=== PATIENT | female | born 1970 | race Caucasian/White ===

== ENCOUNTER 2020-10-05 09:18 | Outpatient (REF) | payer MEDICAID, SELFPAY | END 2020-10-05 09:19 | disposition home or self-care (01) | LOC: HO.LAB 09:18 | PROVIDERS: PCP Internal Medicine; Visit Provider Internal Medicine | DX: Z20.828 Contact with and (suspected) exposure to other viral communicable diseases (principal) | CPT/HCPCS: C9803; U0003 ==

== ENCOUNTER 2020-10-06 03:58 | Observation (INO) | payer MEDICAID, SELFPAY ==
[2020-10-06] VITALS (22 sets, daily range): BP systolic 95–156; BP diastolic 57–85; PULSE 71–94; RESP 16–20; TEMP 36.5–36.8; O2SAT 92–100; BMI 37.0
--- NOTE | 2020-10-06 04:00 | ECG_ITS ---
Test Reason : ?STROKE Blood Pressure : / mmHG Vent. Rate : 075 BPM Atrial Rate : 075 BPM P-R Int : 134 ms QRS Dur : 084 ms QT Int : 420 ms P-R-T Axes : 038 069 029 degrees QTc Int : 469 ms Normal sinus rhythm Normal ECG Compared to EKG of 16 Mar 2020 at 12:25:30 No significant changes seen Referred By: Zane Cuevas Electronically Signed By:RIVAS GARCIA
--- NOTE | 2020-10-06 04:00 | CT_ITS ---
EXAMINATION: CT HEAD WITHOUT CONTRAST (STROKE PROTOCOL) CLINICAL INFORMATION: Stroke protocol. Left arm weakness. COMPARISON: None TECHNIQUE: Contiguous axial imaging was performed from the skull base to vertex without intravenous administration of contrast. This CT examination was performed using dose optimization techniques as appropriate, variously including the following: *Automated exposure control *Adjustment of mA and/or kV according to patient size (this includes techniques or standardized protocols for targeted exams where dose is matched to indication/reason for exam; i.e. extremities or head) *Use of iterative reconstruction technique DLP: 726 mGy-cm FINDINGS: There is no intracranial hemorrhage, hematoma, or extra-axial fluid collection. The ventricles are normal in size. There is no hydrocephalus, edema, or mass effect. The quiros-white matter differentiation appears symmetric. There is no acute infarct or mass lesion. The calvarium appears intact. There is no pneumocephalus or orbital emphysema. The visualized sinuses and middle ears and mastoid air cells show no significant mucosal thickening. There are no air-fluid levels. CT/CT head for stroke IMPRESSION: No acute intracranial pathology. This critical result was discussed with Zane Cuevas MD at 0409 hours on 09/26/2020. It was ascertained that the content and urgency of the report was understood at the time of direct communication.
--- NOTE | 2020-10-06 04:03 | CT_ITS ---
EXAMINATION: CTA NECK WITH CONTRAST (STROKE) CTA BRAIN WITH CONTRAST (STROKE) CLINICAL INFORMATION: Suspect acute stroke. Assess for major vessel occlusion. Please call report. COMPARISON: CT abdomen performed earlier same date TECHNIQUE: CTA of the head and neck was performed in the axial plane from the mediastinum to the skull vertex using 70 mL Omnipaque 350 intravenous contrast. Additional reformatted multiplanar images including maximum intensity projection MIP images are generated on the CT workstation. This CT examination was performed using dose optimization techniques as appropriate, variously including the following: *Automated exposure control *Adjustment of mA and/or kV according to patient size (this includes techniques or standardized protocols for targeted exams where dose is matched to indication/reason for exam; i.e. extremities or head) *Use of iterative reconstruction technique DLP: 1449 mGy-cm FINDINGS: The degree of stenosis determined by criteria similar to NASCET. SOFT TISSUES AND LUNG APICES: No overt abnormality is appreciated. CTA NECK: The aortic arch has a classic configuration and the major arch vessel origins are non-stenotic. The vertebral arteries are co-dominant and both vertebral origins are widely patent. Both common, internal and external carotid arteries are normal in course and caliber. CTA HEAD: There is normal opacification of the major intracranial vessels. No acute proximal large vessel occlusion, focal flow-limiting stenosis, or saccular intracranial aneurysm is identified. No abnormal parenchymal enhancement or regional oligemia is visualized. HEAD (delayed): No intracranial mass, intercerebral edema, hemorrhage, or midline shift is evident. The ventricles and sulci are stable in size and configuration. No extra-axial collections are appreciated. No pathologic intracranial enhancement. The paranasal sinuses are well-aerated and clear. CT/CT angio head neck stroke IMPRESSION: No evidence of large vessel occlusion or hemodynamically significant stenosis within the intracranial or extracranial arterial vasculature. This critical result was discussed with Zane Cuevas MD at 0439 hours on 10/06/2020 and it was ascertained that the content and urgency of the report was understood at the time of direct communication.
[2020-10-06] MEDS: iohexoL 350 MG/ML 100 ML INFUS..BTL 70 ML IV (04:31)
[2020-10-06 04:51] LABS: MANUAL DIFF FLAG NO
[2020-10-06 04:54] LABS: Basophils Percent Auto 0.5 % (0-2); Eosinophils Absolute Auto 0.2 X10*3/uL (0.0-0.4); Eosinophils Percent Auto 2.4 % (0-4); Hematocrit 35.9 % (37-47); Hemoglobin 12.9 g/dl (12.0-16.0); Imm Gran Abs Auto 0.02 X10*3/uL (0.00-0.03); Imm Gran Pct Auto 0.3 % (0.0-0.4); Lymphocytes Absolute Auto 2.3 X10*3/uL (1.2-4.9); Lymphocytes Percent Auto 34.7 % (20-40); Mean Corpuscular HGB Conc 35.9 g/dl (31.0-35.0); Mean Corpuscular Hemoglobin 31.6 pg (27.0-33.0); Mean Platelet Volume 10.8 fL (9.4-12.3); Monocytes Absolute Auto 0.4 X10*3/uL (0.1-1.2); Monocytes Percent Auto 6.4 % (2-11); Neutrophils Absolute Auto 3.7 X10*3/uL (2.0-8.3); Neutrophils Percent Auto 55.7 % (45-73); Platelet Count 291 X10*3/uL (160-400); Red Blood Count 4.08 X10*6/uL (4.20-5.50); Red Cell Distribution Width 12.4 % (11.0-16.0); White Blood Count 6.6 X10*3/uL (4.8-10.8)
[2020-10-06 05:09] LABS: Prothrombin Time 11.5 SEC (10.8-13.0)
[2020-10-06 05:12] LABS: Partial Thromboplastin Time 36.4 SEC (24.1-38.0)
[2020-10-06 05:14] LABS: Glucose Urine UA >=1000 MG/DL (NEG); Leukocyte Esterase Urine NEG (NEG); Nitrite Urine NEG (NEG); Specific Gravity - Urine <= 1.005 (1.005-1.025); Urine Blood NEG (NEG); Urine Ketones NEG (NEG); Urine Protein NEG (NEG-TRACE)
[2020-10-06 05:26] LABS: Appearance Urine CLEAR; Color Urine STRAW
[2020-10-06 05:29] LABS: Ethanol < 10 mg/dL
[2020-10-06 05:35] LABS: Mucus Urine TRACE /LPF; RBC Urine 0 /HPF (0); Squamous Epithelial Cell Urine TRACE /LPF; WBC Clumps Urine NOTED; WBC Urine 0-2 /HPF (0-4)
[2020-10-06 05:36] LABS: Troponin-I High Sensitivity < 3.5 ng/L (<3.5-17.0)
[2020-10-06 05:37] LABS: Anion Gap 15 (12-20); Blood Urea Nitrogen 11 mg/dL (9-16); Calcium 8.3 mg/dL (8.4-10.2); Carbon Dioxide 22 mmol/L (22-29); Chloride 103 mmol/L (96-108); Creatinine Clr Calc Pharmacy 98.1; Estimated Glomerular Filt Rate > 60; Glucose Random 352 mg/dL (60-115); Potassium 3.9 mmol/l (3.3-5.1); Sodium 136 mmol/L (135-145)
[2020-10-06 05:40] LABS: Stroke Lab Use COMPLETE
[2020-10-06] MEDS: Morphine Sulfate 2 MG/ML CARTRIDGE IVPUSH (05:41)
[2020-10-06] MEDS: ondansetron HCL 4 MG/2 ML VIAL IVPUSH (05:41)
[2020-10-06] MEDS: 0.9 % Sodium Chloride 500 ML 1000 ML IV (05:42)
[2020-10-06] MEDS: Aspirin 81 MG TAB.CHEW 162 MG PO (05:42)
--- NOTE | 2020-10-06 06:10 | ED_ITS ---
HPI - Neuro Symptoms/Deficit General Chief Complaint: Stroke Stated Complaint: left arm numbness Time Seen by Provider: 10/06/20 04:00 Source: patient and other (Patient's Bradford lynch) Mode of arrival: ambulatory Limitations: no limitations History of Present Illness HPI Narrative: 50-year-old female who presents to the emergency department for evaluation headache, left arm and left leg weakness. The patient is Portuguese- speaking only and they did use an instructor military science to get the information from her. The patient's speech is comprehensible but slow and she has a very low volume to her voice. The patient states that over the last 2 days her blood sugars have been high ranging from 350-400. The patient went to bed at around 10:00 p.m. last night not feeling well. Her fiancee states that she may have woken up at around 11:30 p.m. and had some difficulty walking and did not feel well. The patient woke up at 4:00 a.m. secondary to feeling short of breath and having difficulty walking. An ambulance was called and the patient was found to have left arm and left leg weakness. The patient complained of a severe headache here in the emergency department. She stated that the headache was located throughout her entire head and was a throbbing sensation. She had associated nausea. She stated that her left arm and left leg felt very heavy and she could not move them. The patient believes that before she went to bed she was able to move her arms and legs without any difficulty. The patient's point of care glucose by the paramedics was in the 300 range. The patient denied fever, chills, chest pain or shortness of breath here in the emergency department. Related Data Previous Rx's Medication Instructions Recorded linaclotide 145 mcg capsule 145 mcg PO QAM 30 Days #30 cap 08/09/20 Allergies Allergy/AdvReac Type Severity Reaction Status Date / Time ENVIRONMENTAL Allergy Unknown HAYFEVER Uncoded 10/06/20 05:01 Pt states no food/medication Allergy Unknown Unknown Uncoded 10/06/20 05:01 a Review of Systems Review of Systems: Yes all other systems are reviewed and are negative Constitutional: Constitutional: Reports as per HPI Eyes: Eyes: Reports as per HPI ENT: Reports as per HPI Cardiovascular: Cardiovascular: Reports as per HPI Respiratory: Respiratory: Reports as per HPI Gastrointestinal: Gastrointestinal: Reports as per HPI Genitourinary: Genitourinary: Reports as per HPI Musculoskeletal: Musculoskeletal: Reports as per HPI Integumentary/Breasts: Skin/Breast: Reports as per HPI Neurologic: Reports as per HPI Psychiatric: Psychiatric: Reports as per HPI Allergic/Immunologic: Allergic/Immunologic: Reports as per HPI [facility] Past Medical History Attestation statement: The following information was validated with the patient. [facility] Narrative: The patient lives with her fiance. She denies tobacco and alcohol use. Social History Social History Advance Directives: No Physical Exam Vital Signs: Vital Signs: Last Vital Signs Temp 97.7 F 10/06/20 04:57 Pulse 76 10/06/20 06:00 Resp 16 10/06/20 06:00 BP 123/71 10/06/20 06:00 Pulse Ox 97 10/06/20 06:00 Body Mass Index 37.0 Const: General: cooperative, no acute distress, alert and awake Orientation/consciousness: oriented to person and oriented to place Limitations: other limitations (The patient is speaking in a very low voice and slowly) HENMT: Head: Yes normal to inspection, Yes normocephalic and Yes atraumatic Ears: external ears normal General nose exam: Normal external nose present Face and sinus: Yes normal facial exam Mouth: Normal oral and palatal mucosa present Throat: Yes posterior oropharynx normal Eyes: General: appearance normal, both eyes and all related structures Periorbital: periorbital findings normal Eyelids: Yes eyelids normal Conjunctivae: conjunctivae normal Sclerae: sclerae normal Corneas: corneas normal Pupils: Equal, round and reactive pupils present Direct Ophthalmoscopy: normal light reflex Neck: Neck: Yes normal visual inspection and Yes supple Lymphatic: no lymphadenopathy noted Chest: Chest palpation & inspection: normal inspection of the chest and normal palpation of entire chest wall Resp: Effort & Inspection: normal respiratory effort, normal respiratory pattern, no audible wheezes and no respiratory distress Auscultation: clear to auscultation bilaterally, no crackles, no rales, no rhonchi and no wheezes Cardio: Rate: regular rate Rhythm: regular rhythm Heart sounds: S1 normal heart sound present, S2 normal heart sound present and no murmurs GI: Inspection: No distended Palpation (GI): Soft to palpation, nontender, no guarding and No hepatosplenomegaly present Auscultation: normal bowel sounds : General: Yes no CVA tenderness Back/Spine/Pelvis: Back: no CVA tenderness Skin: General skin exam: no rashes or lesions noted Lesions: no lesions Rashes: no rashes Wounds: no wounds Neuro: General: oriented to person and oriented to place Cranial nerves: Yes CN's II-XII intact bilaterally and Yes Equal, round and reactive pupils present Cognition (Neuro): normal cognition Speech: Other speech findings present (Neuro) (Slow speech pattern, soft voice) Motor exam (neuro): Abnormal motor strength present (Unable to move left arm or left leg against gravity) Extrem: General: Yes normal to inspection, Yes no pedal edema and Yes no calf tenderness Psych: Appearance: grossly normal Mental Status: mental status grossly normal Thought process: Normal thought process present Course Course Course Narrative: 50-year-old female with a history of diabetes who presents emergency department for evaluation of headache, nausea and left arm and leg w eakness. The patient went to bed at 10:00 p.m. and was normal but woke up at 4:00 a.m. with her symptoms. On presentation to the emergency department she was only able to move her left arm and left leg minimally but not able to move them against gravity. The patient's exam was otherwise unremarkable. The patient was evaluated immediately on presentation by me in her NIH stroke scale was 6. CT scan of the head revealed no acute bleed or acute stroke. CTA of the head and neck revealed no large clots to explain her symptoms. I did discuss the patient's presentation with the covering neurologist. The patient was outside of the therapeutic window for tPA since her last well-known time was 10:00 a.m. she presented at 4:00 a.m. which was 6 hours after last well-known time. The patient did have an elevated glucose and received 1 L of normal saline IV by the paramedics and I also gave her 1 L of normal saline IV. The patient's headache was treated with morphine 2 mg IV and Zofran 4 mg IV. She also received aspirin 160 mg orally. I did discuss the patient's presentation with the covering hospitalist the patient will be admitted for further treatment. The patient required 45 minutes of critical care time provided by me in order to evaluate her for acute stroke and to determine whether not she was a thrombolytic candidate. MDM - Neuro Symptoms/Deficit Lab Data Attestation: I reviewed the patient's lab results. Result diagrams: 10/06/20 04:45 10/06/20 04:45 Labs: Lab Results 10/06/20 10/06/20 10/06/20 Range/Units 04:45 04:45 04:45 WBC 6.6 (4.8-10.8) X10*3/uL RBC 4.08 L (4.20-5.50) X10*6/uL Hgb 12.9 (12.0-16.0) g/dl Hct 35.9 L (37-47) % MCV 88.0 (80-98) fL MCH 31.6 (27.0-33.0) pg MCHC 35.9 H (31.0-35.0) g/dl RDW 12.4 (11.0-16.0) % Plt Count 291 (160-400) X10*3/uL MPV 10.8 (9.4-12.3) fL Immature Gran % (Auto) 0.3 (0.0-0.4) % Neut % (Auto) 55.7 (45-73) % Lymph % (Auto) 34.7 (20-40) % Imperial % (Auto) 6.4 (2-11) % Eos % (Auto) 2.4 (0-4) % Baso % (Auto) 0.5 (0-2) % Lymph # (Auto) 2.3 (1.2-4.9) X10*3/uL Imperial # (Auto) 0.4 (0.1-1.2) X10*3/uL Eos # (Auto) 0.2 (0.0-0.4) X10*3/uL Baso # (Auto) 0.0 (0.0-0.2) X10*3/uL Abs Immat Gran (auto) 0.02 (0.00-0.03) X10*3/uL Absolute Neuts (auto) 3.7 (2.0-8.3) X10*3/uL Absolute Nucleated RBC 0.000 (0.0-0.012) X10*3/uL Nucleated RBC % (auto) 0.0 (0.0-0.2) /100WBC PT 11.5 (10.8-13.0) SEC INR 1.0 (0.9-1.1) APTT 36.4 (24.1-38.0) SEC Sodium 136 (135-145) mmol/L Potassium 3.9 (3.3-5.1) mmol/l Chloride 103 (96-108) mmol/L Carbon Dioxide 22 (22-29) mmol/L Anion Gap 15 (12-20) BUN 11 (9-16) mg/dL Creatinine 0.78 (0.5-1.4) mg/dL Estim Creat Clear Calc 98.1 Estimated GFR > 60 Random Glucose 352 H* (60-115) mg/dL Calcium 8.3 L (8.4-10.2) mg/dL Total Creatine Kinase 35 (26-140) U/L Troponin I High Sens (<3.5-17.0) ng/L Urine Color Urine Appearance Urine pH (5.0-8.0) Ur Specific [place] (1.005-1.025) Urine Protein (NEG-TRACE) MG/DL Urine Glucose (UA) (NEG) MG/DL Urine Ketones (NEG) MG/DL Urine Blood (NEG) Urine Nitrite (NEG) Ur Leukocyte Esterase (NEG) Urine RBC (0) /HPF Urine WBC (0-4) /HPF Urine WBC Clumps Ur Squamous Epith Cells /LPF Urine Bacteria /LPF Urine Mucus /LPF Ethyl Alcohol mg/dL 10/06/20 10/06/20 10/06/20 Range/Units 04:45 04:45 05:05 WBC (4.8-10.8) X10*3/uL RBC (4.20-5.50) X10*6/uL Hgb (12.0-16.0) g/dl Hct (37-47) % MCV (80-98) fL MCH (27.0-33.0) pg MCHC (31.0-35.0) g/dl RDW (11.0-16.0) % Plt Count (160-400) X10*3/uL MPV (9.4-12.3) fL Immature Gran % (Auto) (0.0-0.4) % Neut % (Auto) (45-73) % Lymph % (Auto) (20-40) % Imperial % (Auto) (2-11) % Eos % (Auto) (0-4) % Baso % (Auto) (0-2) % Lymph # (Auto) (1.2-4.9) X10*3/uL Imperial # (Auto) (0.1-1.2) X10*3/uL Eos # (Auto) (0.0-0.4) X10*3/uL Baso # (Auto) (0.0-0.2) X10*3/uL Abs Immat Gran (auto) (0.00-0.03) X10*3/uL Absolute Neuts (auto) (2.0-8.3) X10*3/uL Absolute Nucleated RBC (0.0-0.012) X10*3/uL Nucleated RBC % (auto) (0.0-0.2) /100WBC PT (10.8-13.0) SEC INR (0.9-1.1) APTT (24.1-38.0) SEC Sodium (135-145) mmol/L Potassium (3.3-5.1) mmol/l Chloride (96-108) mmol/L Carbon Dioxide (22-29) mmol/L Anion Gap (12-20) BUN (9-16) mg/dL Creatinine (0.5-1.4) mg/dL Estim Creat Clear Calc Estimated GFR Random Glucose (60-115) mg/dL Calcium (8.4-10.2) mg/dL Total Creatine Kinase (26-140) U/L Troponin I High Sens < 3.5 (<3.5-17.0) ng/L Urine Color STRAW Urine Appearance CLEAR Urine pH 7.0 (5.0-8.0) Ur Specific [place] <= 1.005 (1.005-1.025) Urine Protein NEG (NEG-TRACE) MG/DL Urine Glucose (UA) >=1000 H (NEG) MG/DL Urine Ketones NEG (NEG) MG/DL Urine Blood NEG (NEG) Urine Nitrite NEG (NEG) Ur Leukocyte Esterase NEG (NEG) Urine RBC 0 (0) /HPF Urine WBC 0-2 (0-4) /HPF Urine WBC Clumps NOTED Ur Squamous Epith Cells TRACE /LPF Urine Bacteria NONE /LPF Urine Mucus TRACE /LPF Ethyl Alcohol < 10 mg/dL ECG Data Attestation: I personally reviewed and interpreted this ECG as follows: ECG interpretation date: 10/06/20 ECG interpretation time: 05:13 Pacemaker model: Normal sinus rhythm with a rate of 75, normal intervals, inverted T-wave in NIH Stroke Scale Internal: Initial- Upon Arrival Time: 04:00 Level of Consciousness: Alert Level of Consciousness Questions: Answers both questions correctly Level of Consciousness Commands: Performs both tasks correctly Best Gaze: Normal Visual: No visual loss Facial Palsy: Normal Motor Arm (Right): No drift Motor Arm (Left): No effort against gravity Motor Leg (Right): No drift Motor Leg (Left): No effort against gravity Limb Ataxia: Absent Sensory: Normal Best Language: No aphasia Dysarthia: Normal Extinction and Inattention: No abnormality Score: 6 Discharge Plan Discharge Clinical Impression: Acute ischemic stroke, Acute headache, Acute hyperglycemia Patient Disposition: Home, Self-Care Prescriptions: No Action Linzess 145 mcg capsule 145 mcg PO QAM 30 Days Qty: 30 RF: 1
--- NOTE | 2020-10-06 07:11 | PC.NURSE ---
Patient has voided [id number] amount of urine twice since arrival to ED.
[2020-10-06 08:01] LABS: Prothrombin Time Whole Bld POC 11.7 sec (11.1-13.5)
[2020-10-06 08:02] LABS: Glucose, Whole Blood 355 mg/dL (60-115)
[2020-10-06 08:02] LABS: Glucose, Whole Blood 268 mg/dL (60-115)
[2020-10-06] MEDS: oxyCODONE HCl Immed Release 5 MG TABLET 10 MG PO (09:03)
--- NOTE | 2020-10-06 09:46 | MHC.STROKE ---
10/06/20 0542, VERIFIED THAT PATIENT PASSED SWALLOW SCREEN PRIOR TO ASPIRIN 162MG.
--- NOTE | 2020-10-06 10:41 | PM.NEUROCN ---
History of Present Illness Data of Consult Service Date: 10/06/20 Primary Care Provider: [facility] 50 years old woman with chronic history of headaches started having a headache few days ago and yesterday felt heavy in her left arm and then her left leg and came to emergency room. This morning headache was mostly resolved. She did not have any nausea vomiting double vision or any loss of speech. She denied any cold or fever like illness or trauma. She was having quite frequent headaches every month. Pain was all around the head. Review of Systems Review of Systems: Frequent headaches. No fever chills trauma or seizure. No cold or flu-like symptoms. Neurologic: Reports as per [facility] Social History Social History Advance Directives: No Meds Allergies Allergy/AdvReac Type Severity Reaction Status Date / Time ENVIRONMENTAL Allergy Unknown HAYFEVER Uncoded 10/06/20 05:01 Pt states no food/medication Allergy Unknown Unknown Uncoded 10/06/20 05:01 a Home Medications Medication Instructions Recorded Confirmed Type omeprazole 20 mg capsule,delayed 20 mg PO DAILY 10/06/20 10/06/20 History release simethicone 180 mg capsule 180 mg PO BID PRN 10/06/20 10/06/20 History Physical Exam Vital Signs: Vital Signs: Last Vital Signs Temp 98.2 F 10/06/20 06:08 Pulse 74 10/06/20 08:26 Resp 17 10/06/20 06:49 BP 127/75 10/06/20 08:26 Pulse Ox 97 10/06/20 08:26 Body Mass Index 37.0 Alert and awake with normal spontaneity of speech fluency comprehension and affect. Into was performed with the help of an spanish interpreter. He was following commands. Pupils were round and reactive to light. Face was symmetrical. External ocular muscles were intact. Visual dillon are full. There was no definite arm or leg weakness dose she was little bit clumsy with left arm. Deep tendon reflexes were trace with flexor plantars. Results Labs CBC & Chem 7: 10/06/20 04:45 10/06/20 04:45 Labs: Short CBC 10/06/20 Range/Units 04:45 WBC 6.6 (4.8-10.8) X10*3/uL Hgb 12.9 (12.0-16.0) g/dl Hct 35.9 L (37-47) % Plt Count 291 (160-400) X10*3/uL BMP 10/06/20 04:45 Sodium 136 Potassium 3.9 Chloride 103 Carbon Dioxide 22 BUN 11 Creatinine 0.78 Calcium 8.3 L Cardiac Enzymes 10/06/20 Range/Units 04:45 Total Creatine Kinase 35 (26-140) U/L Urine 10/06/20 Range/Units 05:05 Urine Color STRAW Urine Appearance CLEAR Urine pH 7.0 (5.0-8.0) Ur Specific [place] <= 1.005 (1.005-1.025) Urine Protein NEG (NEG-TRACE) MG/DL Urine Glucose (UA) >=1000 H (NEG) MG/DL Her CT of brain without contrast and CTA of brain and neck did not reveal any significant acute or chronic abnormality. Assessment and Plan (1) Complicated migraine: Status: Acute 50 years old woman with chronic history of headaches having frequent headaches every month came with a headache that started few days ago and then was associated with left-sided arm and leg heaviness. This morning she felt better. Her workup did not reveal any significant pathology. Overall clinical picture was suggestive of complicated migraine. Mainstay of management is reassurance and education. As she was having frequent headaches I would suggest starting her on propanolol 20 mg twice a day for headache control.
--- NOTE | 2020-10-06 12:57 | MR_ITS ---
EXAMINATION: MR BRAIN WITHOUT CONTRAST CLINICAL INFORMATION: Left-sided weakness. Headaches. COMPARISON: Head CTA 10/06/2020. TECHNIQUE: Multiplanar, multisequence imaging of the brain was performed without intravenous contrast. FINDINGS: There is no acute infarction, mass, hemorrhage, or extra-axial collection. The ventricles, sulci, and basilar cisterns are normal in size and configuration. The flow voids of the major intracranial arteries appear intact. The bones and extracranial soft tissues are unremarkable. MR/MR head/brain wo con IMPRESSION: No acute infarct, mass lesion, intracranial hemorrhage, or evidence of hydrocephalus.
[2020-10-06] MEDS: HYDROmorphone HCl 1 MG/ML SYRINGE IVPUSH (13:47)
--- NOTE | 2020-10-06 13:49 | PC.NURSE ---
Ed MD and Hospitalist talking about patients admission, ED MD ordered MRI
--- NOTE | 2020-10-06 16:21 | PM.IMHP ---
History of Present Illness Date of Service: 10/06/20 Chief Complaint: Headache This is a 50-year-old Emirati-speaking female who presented to the emergency department with complaint headache. Two days ago she began having a headache involving the back and left side of her head similar to her previous migraines. The pain is described as both pressure and stabbing in nature and 8/10 in severity. This was associated with photophobia and nausea. She also began having left-sided weakness and pain. She has had weakness associated with her migraines in the past but not for several years. She came to the emergency department for evaluation. Brain CT and head and neck CTA were unremarkable. She is evaluated by the neurologist in the emergency department who felt her symptoms were consistent with a complex migraine. She had persistent pain and required multiple doses of narcotics as well as ongoing weakness on the left side. These reasons the decision was made to admit her overnight for observation. Review of Systems Review of Systems: Yes all other systems are reviewed and are negative Constitutional: Constitutional: Denies chills and Denies fever(s) Cardiovascular: Cardiovascular: Denies chest pain Gastrointestinal: Gastrointestinal: Denies abdominal pain Neurologic: Reports as per [facility] Medical History (Updated 10/06/20 @ 19:23 by SAM Banks) Asthma COPD (chronic obstructive pulmonary disease) Diabetes HLD (hyperlipidemia) HTN (hypertension) Migraines Sciatica Functional capacity: independent ambulation Family History Sister Migraine Surgical History (Updated 10/06/20 @ 16:31 by SAM Banks) H/O: hysterectomy History of ear surgery Social History (Updated 10/06/20 @ 16:33 by SAM Banks) Household Members: None Alcohol intake: never Cigarettes Per Day: 8 Use of substances other than those prescribed or required for medical reasons: No Advance Directives: No Meds Allergies Allergy/AdvReac Type Severity Reaction Status Date / Time ENVIRONMENTAL Allergy Unknown HAYFEVER Uncoded 10/06/20 05:01 Pt states no food/medication Allergy Unknown Unknown Uncoded 10/06/20 05:01 a Home Medications Medication Instructions Recorded Confirmed Type albuterol sulfate [ProAir HFA] 2 puff INHALATION QID PRN 10/06/20 10/06/20 History bupropion HCl [Wellbutrin XL] 150 mg PO DAILY 10/06/20 10/06/20 History bupropion HCl [Wellbutrin XL] 300 mg PO DAILY 10/06/20 10/06/20 History icrifmljut-wqrmknanckiws-owuu 1 tab PO Q4H PRN 10/06/20 10/06/20 History [Fioricet] cetirizine [Zyrtec] 10 mg PO DAILY 10/06/20 10/06/20 History duloxetine [Cymbalta] 60 mg PO DAILY 10/06/20 10/06/20 History gemfibrozil [Lopid] 600 mg PO BID 10/06/20 10/06/20 History glimepiride 1 mg PO DAILY 10/06/20 10/06/20 History insulin glargine [Lantus U-100 20 unit SUBCUT BEDTIME 10/06/20 10/06/20 History Insulin] metoprolol succinate [Toprol XL] 25 mg PO DAILY 10/06/20 10/06/20 History mirtazapine [Remeron] 45 mg PO BEDTIME PRN 10/06/20 10/06/20 History montelukast [Singulair] 10 mg PO BEDTIME 10/06/20 10/06/20 History omeprazole [Prilosec] 20 mg PO DAILY 10/06/20 10/06/20 History prazosin 1 mg PO BEDTIME 10/06/20 10/06/20 History ropinirole 1 mg PO BEDTIME 10/06/20 10/06/20 History tiotropium bromide [Spiriva with 1 cap INHALATION DAILY 10/06/20 10/06/20 History HandiHaler] topiramate 50 mg PO BEDTIME 10/06/20 10/06/20 History Physical Exam Vital Signs and Narrative: Vital Signs: Last Vital Signs Temp 98.1 F 10/06/20 15:15 Pulse 79 10/06/20 15:15 Resp 19 10/06/20 15:15 BP 134/71 10/06/20 15:15 Pulse Ox 94 10/06/20 15:15 Body Mass Index 37.0 Const: Nutritional Appearance: well nourished Orientation/consciousness: patient oriented x3 HENMT: Head: Yes normocephalic and Yes atraumatic Eyes: Sclerae: sclerae normal Chest: Chest palpation & inspection: normal inspection of the chest Resp: Effort & Inspection: normal respiratory effort and no respiratory distress Auscultation: clear to auscultation bilaterally Cardio: Rate: regular rate Rhythm: regular rhythm GI: Palpation (GI): Soft to palpation and nontender Skin: General skin exam: no rashes or lesions noted Neuro: Other: left side strength 4/5 General: patient oriented x3 Cranial nerves: Yes CN's II-XII intact bilaterally, Yes Bilaterally intact EOM present and Yes Ability to bilaterally elevate shoulders present Extrem: General: Yes normal to inspection Results Labs CBC and Chem 7: 10/06/20 04:45 10/06/20 04:45 Labs: Laboratory Results - last 24 hr 10/06/20 10/06/20 10/06/20 04:08 04:08 04:45 MCV 88.0 MCH 31.6 MCHC 35.9 H RDW 12.4 Plt Count 291 MPV 10.8 Immature Gran % (Auto) 0.3 Neut % (Auto) 55.7 Lymph % (Auto) 34.7 [place] % (Auto) 6.4 Eos % (Auto) 2.4 Baso % (Auto) 0.5 Lymph # (Auto) 2.3 [place] # (Auto) 0.4 Eos # (Auto) 0.2 Baso # (Auto) 0.0 Abs Immat Gran (auto) 0.02 Absolute Neuts (auto) 3.7 Absolute Nucleated RBC 0.000 Nucleated RBC % (auto) 0.0 PT Whole Blood PT 11.7 INR Whole Blood INR 1.0 APTT Anion Gap Estim Creat Clear Calc Estimated GFR POC Glucose 355 H* Random Glucose Calcium Total Creatine Kinase Troponin I High Sens Urine Color Urine Appearance Urine pH Ur Specific [place] Urine Protein Urine Glucose (UA) Urine Ketones Urine Blood Urine Nitrite Ur Leukocyte Esterase Urine RBC Urine WBC Urine WBC Clumps Ur Squamous Epith Cells Urine Bacteria Urine Mucus Ethyl Alcohol 10/06/20 10/06/20 10/06/20 04:45 04:45 04:45 MCV MCH MCHC RDW Plt Count MPV Immature Gran % (Auto) Neut % (Auto) Lymph % (Auto) [place] % (Auto) Eos % (Auto) Baso % (Auto) Lymph # (Auto) [place] # (Auto) Eos # (Auto) Baso # (Auto) Abs Immat Gran (auto) Absolute Neuts (auto) Absolute Nucleated RBC Nucleated RBC % (auto) PT 11.5 Whole Blood PT INR 1.0 Whole Blood INR APTT 36.4 Anion Gap 15 Estim Creat Clear Calc 98.1 Estimated GFR > 60 POC Glucose Random Glucose 352 H* Calcium 8.3 L Total Creatine Kinase 35 Troponin I High Sens < 3.5 Urine Color Urine Appearance Urine pH Ur Specific [place] Urine Protein Urine Glucose (UA) Urine Ketones Urine Blood Urine Nitrite Ur Leukocyte Esterase Urine RBC Urine WBC Urine WBC Clumps Ur Squamous Epith Cells Urine Bacteria Urine Mucus Ethyl Alcohol 10/06/20 10/06/20 10/06/20 04:45 05:05 07:58 MCV MCH MCHC RDW Plt Count MPV Immature Gran % (Auto) Neut % (Auto) Lymph % (Auto) [place] % (Auto) Eos % (Auto) Baso % (Auto) Lymph # (Auto) [place] # (Auto) Eos # (Auto) Baso # (Auto) Abs Immat Gran (auto) Absolute Neuts (auto) Absolute Nucleated RBC Nucleated RBC % (auto) PT Whole Blood PT INR Whole Blood INR APTT Anion Gap Estim Creat Clear Calc Estimated GFR POC Glucose 268 H Random Glucose Calcium Total Creatine Kinase Troponin I High Sens Urine Color STRAW Urine Appearance CLEAR Urine pH 7.0 Ur Specific [place] <= 1.005 Urine Protein NEG Urine Glucose (UA) >=1000 H Urine Ketones NEG Urine Blood NEG Urine Nitrite NEG Ur Leukocyte Esterase NEG Urine RBC 0 Urine WBC 0-2 Urine WBC Clumps NOTED Ur Squamous Epith Cells TRACE Urine Bacteria NONE Urine Mucus TRACE Ethyl Alcohol < 10 Imaging Radiologist's Impressions: Impressions Head CT 10/06/20 04:00 IMPRESSION: No acute intracranial pathology. This critical result was discussed with Zane Cuevas MD at 0409 hours on 09/26/2020. It was ascertained that the content and urgency of the report was understood at the time of direct communication. Head/Neck CTA 10/06/20 04:03 IMPRESSION: No evidence of large vessel occlusion or hemodynamically significant stenosis within the intracranial or extracranial arterial vasculature. This critical result was discussed with Zane Cuevas MD at 0439 hours on 10/06/2020 and it was ascertained that the content and urgency of the report was understood at the time of direct communication. Assessment and Plan (1) Complicated migraine: Status: Acute This is a 50-year-old Emirati-speaking female with a history of migraines who presented to the emergency department with migraine associated with left-sided weakness Complicated migraine initial concern over possible stroke. Brain CT negative. MRI pending. Received asa in ED Seen by neurology who feels symptoms are consistent with complex migraine and recommended starting propanolol for migraine prophylaxis continue home fioricet Diabetes SSI, POCs Hold glimepiride Continue Lantus Hypertension Continue metoprolol Dyslipidemia Continue Lopid Asthma/COPD Continue albuterol, Spiriva GERD Continue omeprazole Mood Continue bupropion, Cymbalta, Remeron, prazosin ?RLS Continue requip dvt ppx - lovenox code status - full code This case was discussed with Dr. Silvestre
[2020-10-06 16:45] LABS: COVID-19 Test Negative (Negative)
--- NOTE | 2020-10-06 17:22 | P.EN_ITS ---
Event Note Date of Service: 10/06/20 Event Note: addendum to H+P by SAM Rankin I interviewed and examined the patient. I discussed their presentation and management with the mid-level provider. I reviewed the history and physical and agree with the documentation, with the following additions and corrections: 50yo F pt of Dr Penny at [facility] with PMHx DM2, HTN, sciatica, asthma/COPD, migraines p/w nearly 2d of 06/05 throbbing- and pressure-type headache assoc with nausea, photophobia, and acute onset of left-sided weakness more in the leg than the arm. takes Fioricet and topiramate for migranes. usually gets migraines approx 1x a week. has had migraine assoc with L-sided weakness in past, though not in years. on exam, mild photophobia, neck supple, EOMI, PERRL, lungs clear, CV RRR no m/r/g, abd soft/obese/NT neuro: CN2-12 intact, no facial droop, LUE strength 4/5 though when retested no pronator drift, LLE strength 4/5 though seems mostly secondary to pain rather than true neurological weakness, no cerebellar signs CTH and CTA head/neck normal MRI pending impression is of complex migraine. per neurology they agree. plan is propranolol bid for preventive therapy. possibly increase topiramate to 50 mg bid
--- NOTE | 2020-10-06 19:03 | PC.NURSE ---
patient medicated with zofran 4mg iv for nausea and tylenol 650mg po for pain.
[2020-10-06] MEDS: Butalb/Acetamin/Caff 50/325/40 TABLET 1 TAB PO (20:06)
[2020-10-06 21:10] LABS: Glucose, Whole Blood 271 mg/dL (60-115)
[2020-10-06] MEDS: 0.9 % Sodium Chloride Flush 3 ML SYRINGE IVFLUSH (21:24)
[2020-10-06] MEDS: Enoxaparin Sodium 40 MG/0.4 ML SYRINGE SUBCUT (21:24)
[2020-10-06] MEDS: rOPINIRole HCL 1 MG TABLET PO (21:25)
[2020-10-06] MEDS: gemfibroziL 600 MG TABLET PO (21:25)
[2020-10-06] MEDS: Topiramate 25 MG TABLET 50 MG PO (21:25)
[2020-10-06] MEDS: Insulin Glargine,Hum.rec.anlog 100 UNIT/ML 10 ML VIAL 20 UNIT SUBCUT (21:26)
[2020-10-06] MEDS: Montelukast Sodium 10 MG TABLET PO (21:26)
[2020-10-06] MEDS: Prazosin HCL 1 MG CAPSULE PO (21:28)
[2020-10-06] MEDS: Propranolol HCL 20 MG TABLET PO (21:28)
[2020-10-06] MEDS: Insulin Lispro 100 UNIT/ML 3 ML VIAL SUBCUT (21:34)
[2020-10-07 03:20] VITALS: BP 129/74; PULSE 79; RESP 14; TEMP 36.4; O2SAT 97
[2020-10-07 08:00] VITALS: BP 117/53; PULSE 76; RESP 17; TEMP 37.1; O2SAT 96
[2020-10-07 08:21] LABS: Glucose, Whole Blood 225 mg/dL (60-115)
[2020-10-07] MEDS: Insulin Lispro 100 UNIT/ML 3 ML VIAL SUBCUT ×2 (08:32→13:20)
[2020-10-07] MEDS: Metoprolol Succinate ER 25 MG TAB.ER.24H PO (08:34)
[2020-10-07] MEDS: gemfibroziL 600 MG TABLET PO (08:34)
[2020-10-07] MEDS: Loratadine 10 MG TABLET PO (08:34)
[2020-10-07] MEDS: Omeprazole 20 MG CAPSULE.DR PO (08:34)
[2020-10-07] MEDS: buPROPion HCl XL 300 MG TAB.ER.24H PO (08:34)
[2020-10-07] MEDS: buPROPion HCl XL 150 MG TAB.ER.24H PO (08:35)
[2020-10-07] MEDS: DULoxetine HCl 60 MG CAPSULE.DR PO (08:35)
[2020-10-07] MEDS: Propranolol HCL 20 MG TABLET PO (08:36)
[2020-10-07] MEDS: 0.9 % Sodium Chloride Flush 3 ML SYRINGE IVFLUSH (08:40)
[2020-10-07 12:00] VITALS: PULSE 80; RESP 18; TEMP 37; O2SAT 94
[2020-10-07 12:41] LABS: Glucose, Whole Blood 201 mg/dL (60-115)
[2020-10-07] MEDS: Butalb/Acetamin/Caff 50/325/40 TABLET 1 TAB PO (13:23)
--- NOTE | 2020-10-07 15:09 | P.DS_ITS ---
DS: Providers Provider Date of admission: 10/06/20 16:21 Primary care physician: Wojciech Penny MD DS: Diagnosis Discharge Diagnosis (1) Complicated migraine: Status: Acute (2) Hemiplegic migraine: Status: Acute DS: Medications Discharge Medications Home Medications: See medication list under Discharge Plan DS: Summary Hospital Course Hospital Course: From admission H+P b hospitalist SAM Leana Rankin, 10/06/20: This is a 50-year-old Turkish-speaking female who presented to the emergency department with complaint headache. Two days ago she began having a headache involving the back and left side of her head similar to her previous migraines. The pain is described as both pressure and stabbing in nature and 8/10 in severity. This was associated with photophobia and nausea. She also began having left-sided weakness and pain. She has had weakness associated with her migraines in the past but not for several years. She came to the emergency department for evaluation. Brain CT and head and neck CTA were unremarkable. She is evaluated by the neurologist in the emergency department who felt her symptoms were consistent with a complex migraine. She had persistent pain and required multiple doses of narcotics as well as ongoing weakness on the left side. These reasons the decision was made to admit her overnight for observation. Neurology was consulted. The patient's weakness resolved. MRI was negative for stroke. She was diagnosed with acute hemiplegic migraine. Metoprolol succinate was changed to propranolol for migraine prevention. Topiramate was increased from once daily to twice daily. Fioricet was refilled for abortive therapy. She was taught to identify and avoid triggers. She should follow up with her primary care doctor in 1-2 weeks, and with the neurologist in 2-3 weeks. Time Spent with Patient Time attestation: Total time spent providing and/or coordinating discharge services: 30 Physical Exam Vital Signs: Vital Signs: Last Vital Signs Temp 98.6 F 10/07/20 12:00 Pulse 80 10/07/20 12:00 Resp 18 10/07/20 12:00 BP 117/53 L 10/07/20 08:00 Pulse Ox 94 10/07/20 12:00 Body Mass Index 37.0 Gen: in no acute distress HEENT: sclera anicteric, moist mucus membranes Neck: supple Lungs: clear to auscultation bilaterally Heart: regular rate and rhythm, no murmurs Abd: soft, obese, non-tender, non-distended Ext: no edema Skin: warm/well-perfused Neuro: alert and oriented x3, no focal findings, previous L-sided weakness resolved Psych: appropriate affect DS: Data Additional Comments Additional comments: Laboratory Results WBC 6.6 X10*3/uL (4.8-10.8) 10/06/20 04:45 RBC 4.08 X10*6/uL (4.20-5.50) L 10/06/20 04:45 Hgb 12.9 g/dl (12.0-16.0) 10/06/20 04:45 Hct 35.9 % (37-47) L 10/06/20 04:45 MCV 88.0 fL (80-98) 10/06/20 04:45 MCH 31.6 pg (27.0-33.0) 10/06/20 04:45 MCHC 35.9 g/dl (31.0-35.0) H 10/06/20 04:45 RDW 12.4 % (11.0-16.0) 10/06/20 04:45 Plt Count 291 X10*3/uL (160-400) 10/06/20 04:45 MPV 10.8 fL (9.4-12.3) 10/06/20 04:45 Immature Gran % (Auto) 0.3 % (0.0-0.4) 10/06/20 04:45 Neut % (Auto) 55.7 % (45-73) 10/06/20 04:45 Lymph % (Auto) 34.7 % (20-40) 10/06/20 04:45 [place] % (Auto) 6.4 % (2-11) 10/06/20 04:45 Eos % (Auto) 2.4 % (0-4) 10/06/20 04:45 Baso % (Auto) 0.5 % (0-2) 10/06/20 04:45 Lymph # (Auto) 2.3 X10*3/uL (1.2-4.9) 10/06/20 04:45 [place] # (Auto) 0.4 X10*3/uL (0.1-1.2) 10/06/20 04:45 Eos # (Auto) 0.2 X10*3/uL (0.0-0.4) 10/06/20 04:45 Baso # (Auto) 0.0 X10*3/uL (0.0-0.2) 10/06/20 04:45 Abs Immat Gran (auto) 0.02 X10*3/uL (0.00-0.03) 10/06/20 04:45 Absolute Neuts (auto) 3.7 X10*3/uL (2.0-8.3) 10/06/20 04:45 Absolute Nucleated RBC 0.000 X10*3/uL (0.0-0.012) 10/06/20 04:45 Nucleated RBC % (auto) 0.0 /100WBC (0.0-0.2) 10/06/20 04:45 PT 11.5 SEC (10.8-13.0) 10/06/20 04:45 Whole Blood PT 11.7 sec (11.1-13.5) 10/06/20 04:08 INR 1.0 (0.9-1.1) 10/06/20 04:45 Whole Blood INR 1.0 (0.9-1.1) 10/06/20 04:08 APTT 36.4 SEC (24.1-38.0) 10/06/20 04:45 Sodium 136 mmol/L (135-145) 10/06/20 04:45 Potassium 3.9 mmol/l (3.3-5.1) 10/06/20 04:45 Chloride 103 mmol/L (96-108) 10/06/20 04:45 Carbon Dioxide 22 mmol/L (22-29) 10/06/20 04:45 Anion Gap 15 (-20) 10/06/20 04:45 BUN 11 mg/dL (9-16) 10/06/20 04:45 Creatinine 0.78 mg/dL (0.5-1.4) 10/06/20 04:45 Estim Creat Clear Calc 98.1 10/06/20 04:45 Estimated GFR > 60 10/06/20 04:45 POC Glucose 201 mg/dL (60-115) H 10/07/20 11:59 Random Glucose 352 mg/dL (60-115) H* 10/06/20 04:45 Calcium 8.3 mg/dL (8.4-10.2) L 10/06/20 04:45 Total Creatine Kinase 35 U/L (26-140) 10/06/20 04:45 Troponin I High Sens < 3.5 ng/L (<3.5-17.0) 10/06/20 04:45 Urine Color STRAW 10/06/20 05:05 Urine Appearance CLEAR 10/06/20 05:05 Urine pH 7.0 (5.0-8.0) 10/06/20 05:05 Ur Specific [place] <= 1.005 (1.005-1.025) 10/06/20 05:05 Urine Protein NEG MG/DL (NEG-TRACE) 10/06/20 05:05 Urine Glucose (UA) >=1000 MG/DL (NEG) H 10/06/20 05:05 Urine Ketones NEG MG/DL (NEG) 10/06/20 05:05 Urine Blood NEG (NEG) 10/06/20 05:05 Urine Nitrite NEG (NEG) 10/06/20 05:05 Ur Leukocyte Esterase NEG (NEG) 10/06/20 05:05 Urine RBC 0 /HPF (0) 10/06/20 05:05 Urine WBC 0-2 /HPF (0-4) 10/06/20 05:05 Urine WBC Clumps NOTED 10/06/20 05:05 Ur Squamous Epith Cells TRACE /LPF 10/06/20 05:05 Urine Bacteria NONE /LPF 10/06/20 05:05 Urine Mucus TRACE /LPF 10/06/20 05:05 Ethyl Alcohol < 10 mg/dL 10/06/20 04:45 COVID-19 (PORFIRIO) Negative (Negative) 10/06/20 16:17 COVID-19 Clin Com See Note 10/06/20 16:[address] 10/06/20 04:00 IMPRESSION: No acute intracranial pathology. This critical result was discussed with Zane Cuevas MD at 0409 hours on 09/26/2020. It was ascertained that the content and urgency of the report was understood at the time of direct communication. Head/Neck CTA 10/06/20 04:03 IMPRESSION: No evidence of large vessel occlusion or hemodynamically significant stenosis within the intracranial or extracranial arterial vasculature. This critical result was discussed with Zane Cuevas MD at 0439 hours on 10/06/2020 and it was ascertained that the content and urgency of the report was understood at the time of direct communication. Brain MRI 10/06/20 12:57 IMPRESSION: No acute infarct, mass lesion, intracranial hemorrhage, or evidence of hydrocephalus. Discharge Plan Discharge Anticipated Discharge Date/Time: 10/07/20 15:03 Patient Disposition: Home, Self-Care Referrals: Wojciech Kinsey MD [Physician] - [place] [Primary Care Provider] - Tom Paz MD [Physician] - Discharge Medications: New propranolol 20 mg tablet 20 mg PO BID Qty: 60 RF: 0 topiramate 50 mg tablet 50 mg PO BID Qty: 60 RF: 0 Continued ropinirole 1 mg Tablet 1 mg PO BEDTIME RF: 0 Lantus U-100 Insulin 100 unit/mL Solution 20 unit SUBCUT BEDTIME RF: 0 cetirizine [Zyrtec] 10 mg Tablet 10 mg PO DAILY RF: 0 prazosin 1 mg Capsule 1 mg PO BEDTIME RF: 0 glimepiride 1 mg Tablet 1 mg PO DAILY RF: 0 gemfibrozil [Lopid] 600 mg Tablet 600 mg PO BID RF: 0 omeprazole 20 mg Capsule,Delayed Release(Dr/Ec) 20 mg PO DAILY RF: 0 mirtazapine 45 mg Tablet 45 mg PO BEDTIME PRN (Reason: Insomnia) RF: 0 montelukast [Singulair] 10 mg Tablet 10 mg PO BEDTIME RF: 0 albuterol sulfate [ProAir HFA] 90 mcg/actuation Hfa Aerosol Inhaler 2 puff INHALATION QID PRN (Reason: Shortness Of Breath) RF: 0 bupropion HCl [Wellbutrin XL] 300 mg Tablet Extended Release 24 Hr 300 mg PO DAILY RF: 0 bupropion HCl [Wellbutrin XL] 150 mg Tablet Extended Release 24 Hr 150 mg PO DAILY RF: 0 Spiriva with HandiHaler 18 mcg Capsule, W/Inhalation Device 1 cap INHALATION DAILY RF: 0 duloxetine [Cymbalta] 60 mg Capsule,Delayed Release(Dr/Ec) 60 mg PO DAILY RF: 0 swyokbgmls-vglsooxssomqt-zbjf 50-325-40 mg Tablet 1 tab PO Q4H PRN (Reason: Headache) Qty: 30 RF: 0 Discontinued metoprolol succinate [Toprol XL] 25 mg Tablet Extended Release 24 Hr 25 mg PO DAILY RF: 0 topiramate 50 mg Tablet 50 mg PO BEDTIME RF: 0 Discharge Orders: Discharge Order (Routine); Ordered 10/07/20 Ordered By: Marlyn Silvestre Diet: diabetic diet, low salt diet and other Activity on Discharge: As tolerated Patient Instructions: Migraine Headache (ED), Mediterranean Diet (DC) Visit Report Forms: Patient Portal Discharge page Care Plan Goals: relief of headache Health Concerns: complicated/hemiplegic migraine Plan of Treatment: change metoprolol succinate 25 mg daily to propranolol 20 mg twice daily. propranolol is in the same medication class as metoprolol succinate but also helps to prevent migraines. increase topiramate from 50 mg daily to 50 mg twice daily. take Fioricet as needed for migraine. identify and avoid triggers. follow up with Dr Penny in 1-2 weeks. arrange referral to neurologist Dr Marlen Paz to be seen in 2-3 weeks: Address: [address] [place] [address] Luz [place] Rahman, [place] [id number]
[2020-10-07 16:00] VITALS: BP 142/86; PULSE 72; RESP 18; TEMP 36.6; O2SAT 98
[2020-10-07 16:36] LABS: Glucose, Whole Blood 166 mg/dL (60-115)
== END 2020-10-07 16:45 | disposition home or self-care (01) ==
LOC: HO.ED 06:33 → HO.S3 17:03
PROVIDERS: Emergency Medicine; Admitting Provider Family Medicine; Emergency Provider Emergency Medicine Emergency Medical Services; Visit Provider Family Medicine
DX: G43.109 Migraine with aura, not intractable, without status migrainosus (principal); G43.409 Hemiplegic migraine, not intractable, without status migrainosus; M62.522 Muscle wasting and atrophy, not elsewhere classified, left upper arm; R73.9 Hyperglycemia, unspecified; R11.0 Nausea; H53.149 Visual discomfort, unspecified; Z20.828 Contact with and (suspected) exposure to other viral communicable diseases; Z91.09 Other allergy status, other than to drugs and biological substances; Z79.899 Other long term (current) drug therapy
CPT/HCPCS: 36415; 70450; 70496; 70498; 70551; 80048; 80320; 81001; 82550; 82947; 84484; 85025; 85610; 85730; 87635; 93005; 96374; 96375; 99218; 99285; J1170; J1650; J2270; J2405; Q9967

== ENCOUNTER 2020-11-01 14:05 | Outpatient (REF) | payer MEDICAID, SELFPAY | END 2020-11-01 14:06 | disposition home or self-care (01) | LOC: HO.LAB 14:05 | PROVIDERS: Visit Provider Internal Medicine | DX: Z20.828 Contact with and (suspected) exposure to other viral communicable diseases (principal) | CPT/HCPCS: 36415; C9803; U0003 ==

== ENCOUNTER 2020-12-04 12:48 | Outpatient (REF) | payer MEDICAID, SELFPAY | END 2020-12-04 12:49 | disposition home or self-care (01) | LOC: HO.LAB 12:48 | PROVIDERS: Visit Provider Internal Medicine | DX: Z20.822 Contact with and (suspected) exposure to COVID-19 (principal) | CPT/HCPCS: 36415; C9803; U0003; U0005 ==

== ENCOUNTER 2021-01-11 15:50 | Outpatient (REF) | payer MEDICAID, SELFPAY | END 2021-01-11 15:51 | disposition home or self-care (01) | LOC: HO.LAB 15:50 | PROVIDERS: Visit Provider Internal Medicine | DX: Z20.822 Contact with and (suspected) exposure to COVID-19 (principal) | CPT/HCPCS: 36415; C9803; U0003; U0005 ==

== ENCOUNTER → 2021-01-19 10:09 | Outpatient (BNVA) | payer MEDICAID, SELFPAY | PROVIDERS: PCP Internal Medicine; Visit Provider Nurse Practitioner ==

== ENCOUNTER 2021-01-31 11:10 | Outpatient (REF) | payer MEDICAID, SELFPAY ==
[2021-01-31 11:59] LABS: SARS COV2 PCR INHOUSE NEGATIVE (Negative)
== END 2021-01-31 11:11 | disposition home or self-care (01) ==
LOC: HO.LAB 11:10
PROVIDERS: Visit Provider Internal Medicine
DX: Z20.822 Contact with and (suspected) exposure to COVID-19 (principal)
CPT/HCPCS: C9803; U0003

== ENCOUNTER 2021-05-23 18:54 | Observation (INO) | payer MEDICAID, SELFPAY ==
--- NOTE | ~2021-05-23 | CT_ITS ---
EXAMINATION: CT ABDOMEN AND PELVIS WITH CONTRAST CLINICAL INFORMATION: diffuse abd pain. nausea. blaoting. liapse 130 COMPARISON: CT abdomen pelvis 02/11/2019 TECHNIQUE: Multidetector volumetric images were obtained from the superior aspect of the liver through the pubic symphysis following administration 85 mL of Omnipaque 350 intravenous contrast. Sagittal and coronal reformatted images were obtained on the technologist's workstation. Oral contrast: No This CT examination was performed using dose optimization techniques as appropriate, variously including the following: *Automated exposure control *Adjustment of mA and/or kV according to patient size (this includes techniques or standardized protocols for targeted exams where dose is matched to indication/reason for exam; i.e. extremities or head) *Use of iterative reconstruction technique DLP: 791 mGy-cm FINDINGS: LUNG BASES: Emphysematous changes are present at the lung bases. No suspicious masses, infiltrates or pleural effusions seen. LIVER, GALLBLADDER, AND BILIARY TREE: The liver is enlarged measuring 27 cm in length (previously 25 cm). There is decreased attenuation with probable hepatic pneumatosis/liver disease. No focal liver mass or bile duct dilatation is seen. Status post cholecystectomy. A significant recanalized umbilical vein is not present. No significant varices are seen. PANCREAS: Unremarkable. SPLEEN: Mild splenomegaly with the spleen measuring 14.7 cm in greatest dimension (previously 12.4 mL). A small splenule is present. ADRENAL GLANDS: Unremarkable. KIDNEYS AND URETERS: The kidneys are normal in size, shape, and attenuation. Small bilateral cysts are seen. No solid renal masses. No hydronephrosis, hydroureter, or calculi seen. No perinephric stranding. BLADDER: Unremarkable. GASTROINTESTINAL TRACT: The small and large bowel are unremarkable. The appendix is unremarkable. ABDOMINAL WALL: No significant hernia is appreciated. Tiny periumbilical hernia seen containing only fat. LYMPH NODES: No retroperitoneal lymphadenopathy. Small periportal lymph nodes are noted the largest just next to the celiac bifurcation measuring 2.4 x 1.1 x 2.0 cm (4:503). VASCULAR: Calcific infrarenal aortoiliac plaque. No aneurysms. PELVIC VISCERA: Surgically absent OSSEOUS STRUCTURES: Marked degenerative changes are stable at L4-L5 and to a lesser extent L5-S1. No bony destructive changes seen. CT/CT abdomen pelvis w con IMPRESSION: 1. Increasing hepatosplenomegaly. 2. Incidental note made of small bilateral renal cysts, small kirby hepatis lymph nodes and marked degenerative changes in the spine
--- NOTE | ~2021-05-23 | US_ITS ---
EXAMINATION: US ABDOMEN COMPLETE CLINICAL INFORMATION: Abdominal pain.. COMPARISON: CT abdomen and pelvis with contrast 05/23/2021. TECHNIQUE: Real-time imaging of the abdominal viscera. FINDINGS: PANCREAS: Normal. ABDOMINAL AORTA: The proximal, mid, and distal segments are normal in caliber. INFERIOR VENA CAVA: Visualized portions are normal. LIVER: The liver is enlarged in size. The liver contour is normal. Parenchymal echogenicity is increased. No focal hepatic lesion. There is no intrahepatic biliary duct dilatation seen. GALLBLADDER: Normal. The gallbladder is physiologically distended without evidence of stones, sludge, polyps, wall thickening or pericholecystic fluid. COMMON BILE DUCT: Normal in caliber measuring 0.7 cm in diameter. RIGHT KIDNEY: Normal. No hydronephrosis. No renal calculi or focal parenchymal lesions. The kidney measures 12.7 cm in maximum dimension. LEFT KIDNEY: Normal. No hydronephrosis. No renal calculi or focal parenchymal lesions. The kidney measures 14.0 cm in maximum dimension. There is anechoic cyst in the lower pole measuring 1.3 x 1.0 x 1.3 cm. SPLEEN: Normal. The spleen measures 14.1 cm in maximum dimension. FREE FLUID: None. US/US abdomen complete IMPRESSION: Hepatomegaly with hepatic steatosis. Anechoic cyst left kidney.
[2021-05-23 19:10] VITALS: BP 149/79; PULSE 97; RESP 20; TEMP 36.9; O2SAT 98; BMI 34.1
[2021-05-23 19:35] LABS: Glucose Urine UA 250 MG/DL (NEG); Leukocyte Esterase Urine 1+ (NEG); Nitrite Urine NEG (NEG); PH 5.5 (5.0-8.0); Specific Gravity - Urine >= 1.030 (1.005-1.025); UACC Culture Trigger YES; Urine Blood TRACE (NEG); Urine Ketones NEG (NEG); Urine Protein 1+ MG/DL (NEG-TRACE)
[2021-05-23 19:36] LABS: Appearance Urine HAZY; Color Urine YELLOW
[2021-05-23 19:43] LABS: Bacteria Urine 1+ /LPF; Calcium Oxalate Crystals Urine 2+ /LPF; RBC Urine 0-2 /HPF (0); Squamous Epithelial Cell Urine 2+ /LPF
[2021-05-23 20:45] LABS: Basophils Percent Auto 0.4 % (0-2); Eosinophils Absolute Auto 0.1 X10*3/uL (0.0-0.4); Eosinophils Percent Auto 1.7 % (0-4); Hematocrit 36.1 % (37-47); Imm Gran Abs Auto 0.03 X10*3/uL (0.00-0.03); Imm Gran Pct Auto 0.4 % (0.0-0.4); Lymphocytes Absolute Auto 2.6 X10*3/uL (1.2-4.9); Lymphocytes Percent Auto 33.8 % (20-40); MANUAL DIFF FLAG NO; Mean Corpuscular Hemoglobin 31.3 pg (27.0-33.0); Mean Corpuscular Volume 86.8 fL (80-98); Mean Platelet Volume 10.4 fL (9.4-12.3); Monocytes Absolute Auto 0.4 X10*3/uL (0.1-1.2); Monocytes Percent Auto 5.5 % (2-11); Neutrophils Absolute Auto 4.6 X10*3/uL (2.0-8.3); Neutrophils Percent Auto 58.2 % (45-73); Platelet Count 273 X10*3/uL (160-400); Red Blood Count 4.16 X10*6/uL (4.20-5.50); Red Cell Distribution Width 12.4 % (11.0-16.0); White Blood Count 7.8 X10*3/uL (4.8-10.8)
[2021-05-23] MEDS: Famotidine/PF 20 MG/2 ML VIAL IVPUSH (20:50)
[2021-05-23] MEDS: Ketorolac Tromethamine 15 MG/ML VIAL IVPUSH (20:50)
[2021-05-23] MEDS: 0.9 % Sodium Chloride 1,000 ML 999 ML IVCONT ×2 (20:50→21:48)
--- NOTE | 2021-05-23 21:07 | ED_ITS ---
HPI - Abdominal Pain General Chief Complaint: Abdominal Pain Stated Complaint: Stomach pain Time Seen by Provider: 05/23/21 20:32 Source: patient Mode of arrival: ambulatory History of Present Illness HPI narrative: 50-year-old female with a past medical history of asthma, COPD, diabetes, hemiplegic migraine, HLD, HTN, sciatica, presenting to the ED c/o diffuse abdominal pain radiating around to back, bloating/distension and nausea x3 days. Denies fever, chills, vomiting, diarrhea/constipation, dysuria/hematuria. Last BM today. MD elicited complaint: abdominal pain Related Data Home Medications Medication Instructions Recorded Confirmed albuterol sulfate 90 mcg/actuation 2 puff INHALATION QID PRN 10/06/20 05/24/21 aerosol inhaler (ProAir HFA) bupropion HCl 150 mg 24 hr tablet, 150 mg PO DAILY 10/06/20 05/24/21 extended release (Wellbutrin XL) bupropion HCl 300 mg 24 hr tablet, 300 mg PO DAILY 10/06/20 05/24/21 extended release (Wellbutrin XL) cetirizine 10 mg tablet (Zyrtec) 10 mg PO DAILY 10/06/20 05/24/21 duloxetine 60 mg capsule,delayed 60 mg PO DAILY 10/06/20 05/24/21 release (Cymbalta) glimepiride 1 mg tablet 1 mg PO DAILY 10/06/20 05/24/21 insulin glargine 100 unit/mL 20 unit SUBCUT BEDTIME 10/06/20 05/24/21 subcutaneous solution (Lantus U-100 Insulin) mirtazapine 45 mg tablet 45 mg PO BEDTIME PRN 10/06/20 05/24/21 montelukast 10 mg tablet 10 mg PO BEDTIME 10/06/20 05/24/21 (Singulair) prazosin 1 mg capsule 1 mg PO BEDTIME 10/06/20 05/24/21 ropinirole 1 mg tablet 1 mg PO BEDTIME 10/06/20 05/24/21 tiotropium bromide 18 mcg capsule 1 cap INHALATION DAILY 10/06/20 05/24/21 with inhalation device (Spiriva with HandiHaler) fenofibrate micronized 134 mg 1 tab PO QPM 05/24/21 05/24/21 capsule fluticasone propionate 50 2 spray INTRANASAL DAILY 05/24/21 05/24/21 mcg/actuation nasal spray,suspension lisinopril 2.5 mg tablet 1 tab PO QAM 05/24/21 05/24/21 oxycodone-acetaminophen 5 mg-325 1 tab PO Q8H PRN 05/24/21 05/24/21 mg tablet topiramate 50 mg tablet 1 tab PO BEDTIME 05/24/21 05/24/21 Previous Rx's Medication Instructions Recorded propranolol 20 mg tablet 20 mg PO BID #60 tab 10/07/20 omeprazole 20 mg capsule,delayed 20 mg PO QAM #30 cap 04/04/21 release Allergies Allergy/AdvReac Type Severity Reaction Status Date / Time ENVIRONMENTAL Allergy Unknown HAYFEVER Uncoded 05/23/21 19:10 Pt states no food/medication Allergy Unknown Unknown Uncoded 05/23/21 19:10 a Review of Systems Review of Systems Constitutional: No Fever, No Chills, No Fatigue, No Malaise ENT/Mouth: No Ear Pain, No sore throat, No Rhinorrhea Eyes: No Eye Pain, No Swelling, No Vision Changes Cardiovascular: No Chest Pain, No SOB, No Edema, No Palpitations Respiratory: No Cough, No Dyspnea Gastrointestinal: + Nausea, No Vomiting, No Diarrhea, No Constipation, + Abdominal pain Genitourinary: No Dysuria, No Urinary Frequency, No Hematuria, No Urinary Flow Changes, No Hesitancy Musculoskeletal: No joint pain, No Myalgias, No Joint Swelling Skin: No Skin Lesions, No rash Neuro: No Weakness, No Numbness, No Paresthesias Physical Exam Vital Signs: Vital Signs: Last Vital Signs Temp 98.4 F 05/23/21 19:10 Pulse 74 05/23/21 21:52 Resp 17 05/23/21 22:06 BP 126/57 L 05/23/21 21:52 Pulse Ox 98 05/23/21 21:52 Body Mass Index 34.1 Const: General: cooperative and healthy appearing Orientation/consciousness: patient oriented x3 Limitations: no limitations HENMT: Head: Yes normal to inspection Ears: hearing grossly normal bilaterally General nose exam: Normal external nose present Face and sinus: Yes normal facial exam Eyes: General: appearance normal, both eyes and all related structures EOM: EOMs intact bilaterally Neck: Neck: Yes normal visual inspection Resp: Effort & Inspection: normal respiratory effort and no respiratory distress Cardio: Rate: regular rate GI: Other: Mildly distended Inspection: Yes normal to inspection Palpation (GI): Soft to palpation, Tenderness to palpation present (GI) (diffusely), no g uarding and not rigid : General: Yes no CVA tenderness Back/Spine/Pelvis: Back: no CVA tenderness Skin: Rashes: no rashes Wounds: no wounds Neuro: General: patient oriented x3 Gait exam (Neuro): Normal gait present Extrem: General: Yes normal to inspection Course Course Course Narrative: -2135--no leukocytosis, H&H stable, glucose elevated at 351, no anion gap >5U subcu insulin ordered, ALT chronically elevated -lipase elevated to 130, labs otherwise unremarkable -UA with 1+ leuk esterase, 2+ epithelials/ not infected CT abdomen pelvis w con IMPRESSION: 1.? Increasing hepatosplenomegaly. 2.? Incidental note made of small bilateral renal cysts, small kirby hepatis lymph nodes and marked degenerative changes in the spine > Case d/w Dr. Sprague who recommended Lactic/blood cx and empiric antibiotics secondary to findings hepatic pneumatosis >> case discussed with Dr. Cage who does not believe case is surgical however recommended GI follow-up for hepatosplenomegaly -0030--on my re-evaluation patient still in significant amount of abdominal pain, specifically tender in RUQ. Plan to admit for observation/pain control. Case discussed with hospitalist who will evaluate patient -0041-patient admitted for further management MDM - Abdominal Pain MDM Narrative Medical decision making narrative: 50-year-old female with a past medical history of asthma, COPD, diabetes, hemiplegic migraine, HLD, HTN, sciatica, presenting to the ED c/o diffuse abdominal pain radiating around to back, bloating/distension and nausea x3 days. On exam vital signs stable, and HD, abdomen soft, mildly distended, diffusely tender, no rebound or guarding. Concern for constipation vs SBO vs colitis vs diverticulitis or appendicitis. Rule out other infectious etiology Plan: Labs, UA, CT AP, IVF, symptomatic treatment, reassess Medical Records Attestation: I reviewed the patient's medical records. Lab Data Attestation: I reviewed the patient's lab results. Result diagrams: 05/23/21 20:41 05/23/21 20:41 Labs: Lab Results 05/23/21 05/23/21 05/23/21 Range/Units 19:29 20:41 20:41 WBC 7.8 (4.8-10.8) X10*3/uL RBC 4.16 L (4.20-5.50) X10*6/uL Hgb 13.0 (12.0-16.0) g/dl Hct 36.1 L (37-47) % MCV 86.8 (80-98) fL MCH 31.3 (27.0-33.0) pg MCHC 36.0 H (31.0-35.0) g/dl RDW 12.4 (11.0-16.0) % Plt Count 273 (160-400) X10*3/uL MPV 10.4 (9.4-12.3) fL Immature Gran % (Auto) 0.4 (0.0-0.4) % Neut % (Auto) 58.2 (45-73) % Lymph % (Auto) 33.8 (20-40) % [place] % (Auto) 5.5 (2-11) % Eos % (Auto) 1.7 (0-4) % Baso % (Auto) 0.4 (0-2) % Lymph # (Auto) 2.6 (1.2-4.9) X10*3/uL [place] # (Auto) 0.4 (0.1-1.2) X10*3/uL Eos # (Auto) 0.1 (0.0-0.4) X10*3/uL Baso # (Auto) 0.0 (0.0-0.2) X10*3/uL Abs Immat Gran (auto) 0.03 (0.00-0.03) X10*3/uL Absolute Neuts (auto) 4.6 (2.0-8.3) X10*3/uL Absolute Nucleated RBC 0.000 (0.0-0.012) X10*3/uL Nucleated RBC % (auto) 0.0 (0.0-0.2) /100WBC Sodium 135 (135-145) mmol/L Potassium 3.9 (3.3-5.1) mmol/L Chloride 100 (96-108) mmol/L Carbon Dioxide 24 (22-29) mmol/L Anion Gap 15 (12-20) BUN 17 H D (9-16) mg/dL Creatinine 0.92 (0.5-1.4) mg/dL Estim Creat Clear Calc 82.5 Estimated GFR > 60 Random Glucose 351 H* (60-115) mg/dL Calcium 9.8 D (8.4-10.2) mg/dL Magnesium 1.7 (1.6-2.6) mg/dL Total Bilirubin 0.3 (0.0-1.0) mg/dL AST 24 (5-31) U/L ALT 34 H (0-31) U/L Alkaline Phosphatase 141 H (39-117) U/L Total Protein 7.2 (6.5-8.0) g/dL Albumin 4.2 (3.5-5.0) g/dL Lipase 130 H (8-78) U/L Urine Color YELLOW Urine Appearance HAZY Urine pH 5.5 (5.0-8.0) Ur Specific [place] >= 1.030 H (1.005-1.025) Urine Protein 1+ H (NEG-TRACE) MG/DL Urine Glucose (UA) 250 H (NEG) MG/DL Urine Ketones NEG (NEG) MG/DL Urine Blood TRACE (NEG) Urine Nitrite NEG (NEG) Ur Leukocyte Esterase 1+ H (NEG) Urine RBC 0-2 (0) /HPF Urine WBC 1-4 (0-4) /HPF Ur Squamous Epith Cells 2+ /LPF Calcium Oxalate Crystal 2+ /LPF Urine Bacteria 1+ /LPF Discharge Plan Discharge Clinical Impression: Abdominal pain Qualifiers: Abdominal location: right upper quadrant Qualified Code(s): R10.11 - Right upper quadrant pain Prescriptions: No Action omeprazole 20 mg capsule,delayed release(DR/EC) 20 mg PO QAM Qty: 30 RF: 3 ropinirole 1 mg Tablet 1 mg PO BEDTIME RF: 0 Lantus U-100 Insulin 100 unit/mL Solution 20 unit SUBCUT BEDTIME RF: 0 cetirizine [Zyrtec] 10 mg Tablet 10 mg PO DAILY RF: 0 prazosin 1 mg Capsule 1 mg PO BEDTIME RF: 0 glimepiride 1 mg Tablet 1 mg PO DAILY RF: 0 mirtazapine 45 mg Tablet 45 mg PO BEDTIME PRN (Reason: Insomnia) RF: 0 montelukast [Singulair] 10 mg Tablet 10 mg PO BEDTIME RF: 0 albuterol sulfate [ProAir HFA] 90 mcg/actuation Hfa Aerosol Inhaler 2 puff INHALATION QID PRN (Reason: Shortness Of Breath) RF: 0 bupropion HCl [Wellbutrin XL] 300 mg Tablet Extended Release 24 Hr 300 mg PO DAILY RF: 0 bupropion HCl [Wellbutrin XL] 150 mg Tablet Extended Release 24 Hr 150 mg PO DAILY RF: 0 Spiriva with HandiHaler 18 mcg Capsule, W/Inhalation Device 1 cap INHALATION DAILY RF: 0 duloxetine [Cymbalta] 60 mg Capsule,Delayed Release(Dr/Ec) 60 mg PO DAILY RF: 0 propranolol 20 mg tablet 20 mg PO BID Qty: 60 RF: 0 fenofibrate micronized 134 mg capsule 1 tab PO QPM RF: 0 oxycodone-acetaminophen 5-325 mg tablet 1 tab PO Q8H PRN (Reason: pain) RF: 0 fluticasone propionate 50 mcg/actuation spray,suspension 2 spray intranasal DAILY RF: 0 lisinopril 2.5 mg tablet 1 tab PO QAM RF: 0 topiramate 50 mg tablet 1 tab PO BEDTIME RF: 0 PMFSH Past Medical History Attestation statement: The following information was validated with the patient. Medical History (Updated 05/24/21 @ 00:34 by SAM Quintana) Asthma COPD (chronic obstructive pulmonary disease) Diabetes Hemiplegic migraine HLD (hyperlipidemia) HTN (hypertension) Migraines Sciatica Surgical History H/O: hysterectomy History of ear surgery Family History Family History Sister Migraine Social History Social History (Updated 01/19/21 @ 10:18 by ARINA Jay) Household Members: None Housing: Apartment Do you presently have visiting nurse or other home services: No Alcohol intake: never Cigarette Packs Per Day: 0.4 Cigarettes Per Day: 8 Second Hand Smoke Exposure: Yes Advance Directives: No Advance Directives Information Provided: Yes Patient : No
[2021-05-23 21:22] LABS: Alanine Aminotransferase 34 U/L (0-31); Albumin Level 4.2 g/dL (3.5-5.0); Alkaline Phosphatase 141 U/L (39-117); Anion Gap 15 (12-20); Aspartate Amino Transferase 24 U/L (5-31); Bilirubin Total 0.3 mg/dL (0.0-1.0); Blood Urea Nitrogen 17 mg/dL (9-16); Calcium 9.8 mg/dL (8.4-10.2); Carbon Dioxide 24 mmol/L (22-29); Chloride 100 mmol/L (96-108); Creatinine Clr Calc Pharmacy 82.5; Estimated Glomerular Filt Rate > 60; Glucose Random 351 mg/dL (60-115); Lipase 130 U/L (8-78); Magnesium 1.7 mg/dL (1.6-2.6); Potassium 3.9 mmol/L (3.3-5.1); Sodium 135 mmol/L (135-145); Total Protein 7.2 g/dL (6.5-8.0)
[2021-05-23] MEDS: Insulin Lispro 100 UNIT/ML 3 ML VIAL SUBCUT (21:47)
[2021-05-23 21:52] VITALS: BP 126/57; PULSE 74; RESP 18; O2SAT 98
--- NOTE | 2021-05-23 22:01 | PC.NURSE ---
pt c/o generalized abd pain 06/05 as charted. SAM Sellers made aware. Pt to be medicated per MAR with morphine
[2021-05-23 22:06] VITALS: RESP 17
[2021-05-23] MEDS: Morphine Sulfate 2 MG/ML CARTRIDGE IVPUSH (22:06)
[2021-05-23] MEDS: iohexoL 350 MG/ML 100 ML INFUS..BTL IV (22:07)
[2021-05-24] VITALS (13 sets, daily range): BP systolic 121–159; BP diastolic 72–92; PULSE 69–82; RESP 16–18; TEMP 36.1–36.9; O2SAT 94–97; BMI 34.1
[2021-05-24 01:00] LABS: Lactic Acid 1.5 mmol/L (0.5-2.0)
[2021-05-24] MEDS: Piperacillin Sodium/Tazobactam 3.375 GM in 0.9 % Sodium Chloride 50 ML IV (01:03)
[2021-05-24] MEDS: Morphine Sulfate 2 MG/ML CARTRIDGE IVPUSH (01:03)
[2021-05-24 01:24] LABS: COVID-19 Test Negative (Negative)
--- NOTE | 2021-05-24 06:26 | P.HPHOSP_ITS ---
History of Present Illness Date of Service: 05/24/21 Chief Complaint: Abdominal pain 50-year-old female Hungarian-speaking only who presents to the hospital with complaints of abdominal pain. Patient has history of asthma, COPD, diabetes, HLD, HTN, migraine headaches who presents stating that she developed abdominal pain since Friday, the abdominal pain is localized to the mid abdomen radiating across the abdomen to the back, pain is 10/10, constant, worsened over the last few days, not relieved with her home medications of Oxy or Tylenol. No worsening or exacerbating factors. not associated with any nausea or vomiting, not associated with any diarrhea or constipation. Denies any urinary symptoms, no fever or chills, no chest pain no shortness of breath, no lower extremity edema. No numbness tingling weakness. No significant abnormal vitals on arrival Labs are significant for WBC count of 7.8 glucose of 351, UA that is positive for leukocyte esterase and some WBC otherwise unremarkable. CT of the abdomen showed probable hepatic pneumatosis/liver disease due to decreased attenuation. Patient also has increased hepatosplenomegaly. Patient received multiple doses of IV pain medication with no relief of her symptoms. Therefore she will be admitted for intractable pain. Case was discussed with surgical attending, does not feel like patient needs any further intervention for her in the ptosis but recommended evaluation by GI for hepatosplenomegaly Past medical history is reviewed below and confirmed with patient review of system otherwise negative Review of Systems Review of Systems: Review of system otherwise negative [facility] Medical History Asthma COPD (chronic obstructive pulmonary disease) Diabetes Hemiplegic migraine HLD (hyperlipidemia) HTN (hypertension) Migraines Sciatica Family History Sister Migraine Surgical History H/O: hysterectomy History of ear surgery Social History Household Members: None Housing: Apartment Do you presently have visiting nurse or other home services: No Alcohol intake: never Patient Tobacco Use Status: Never used Tobacco Cigarette Packs Per Day: 0.4 Cigarettes Per Day: 8 Second Hand Smoke Exposure: Yes Use of substances other than those prescribed or required for medical reasons: No Advance Directives: No Advance Directives Information Provided: Yes Patient : No Meds Allergies Allergy/AdvReac Type Severity Reaction Status Date / Time ENVIRONMENTAL Allergy Unknown HAYFEVER Uncoded 05/23/21 19:10 Pt states no food/medication Allergy Unknown Unknown Uncoded 05/23/21 19:10 a Active Medications: Current Medications Generic Name Dose Route Start Last Admin Trade Name Freq PRN Reason Stop Dose Admin Acetaminophen 650 mg 05/24/21 00:54 Acetaminophen 325 Mg Tablet PO Q6H PRN Pain, Mild (Pain Scale 1-3) Albuterol Sulfate 2 puff 05/24/21 00:54 Albuterol Sulfate 90 Mcg 8 Gm Inhaler INHALE QID PRN Shortness Of Breath Bupropion HCl 150 mg 05/24/21 09:00 Bupropion Hcl Xl 150 Mg Tab.Er.24h PO DAILY [facility] Bupropion HCl 300 mg 05/24/21 09:00 Bupropion Hcl Xl 300 Mg Tab.Er.24h PO DAILY [facility] Docusate Sodium 100 mg 05/24/21 00:54 Docusate Sodium 100 Mg Capsule PO DAILY PRN Constipation Duloxetine HCl 60 mg 05/24/21 09:00 Duloxetine Hcl 60 Mg Capsule. PO DAILY [facility] Fenofibrate 134 mg 05/24/21 17:00 Fenofibrate,Micronized 134 Mg Capsule PO DAILY@1700 [facility] Fluticasone Propionate 2 spray 05/24/21 09:00 Fluticasone Propionate Nasal 16 Gm [place] NOSTRIL-B DAILY [facility] Insulin Glargine 20 unit 05/24/21 01:00 Insulin Glargine,Hum.Rec.Anlog 100 Unit/Ml 10 Ml Vial SUBCUT BEDTIME [facility] Lisinopril 2.5 mg 05/24/21 09:00 Lisinopril 2.5 Mg Tablet PO DAILY [facility] Protocol Loratadine 10 mg 05/24/21 09:00 Loratadine 10 Mg Tablet PO DAILY [facility] Mirtazapine 45 mg 05/24/21 00:54 Mirtazapine 15 Mg Tablet PO BEDTIME PRN Insomnia Montelukast Sodium 10 mg 05/24/21 01:00 05/24/21 02:07 Montelukast Sodium 10 Mg Tablet PO Not Given BEDTIME [facility] Omeprazole 20 mg 05/24/21 06:00 Omeprazole 20 Mg Capsule. PO DAILY@0600 [facility] Ondansetron HCl 4 mg 05/24/21 00:54 Ondansetron Hcl 4 Mg/2 Ml Vial IVPUSH Q8H PRN Nausea and Vomiting Oxycodone HCl 5 mg 05/24/21 01:57 Oxycodone Hcl Immed Release 5 Mg Tablet PO Q8H PRN Pain, Moderate (Pain Scale 4-6 Prazosin HCl 1 mg 05/24/21 01:00 05/24/21 02:07 Prazosin Hcl 1 Mg Capsule PO Not Given BEDTIME [facility] Protocol Propranolol HCl 20 mg 05/24/21 01:00 05/24/21 02:07 Propranolol Hcl 20 Mg Tablet PO Not Given BID [facility] Protocol Ropinirole HCl 1 mg 05/24/21 01:00 05/24/21 02:07 Ropinirole Hcl 1 Mg Tablet PO Not Given BEDTIME [facility] Sodium Chloride 3 ml 05/24/21 08:00 0.9 % Sodium Chloride Flush 3 Ml Syringe IVFLUSH QSHIFT [facility] Tiotropium [place] 1 puff 05/24/21 09:00 Tiotropium [place] 18 Mcg Cap.W.Dev INHALE DAILY [facility] Topiramate 50 mg 05/24/21 01:00 05/24/21 02:07 Topiramate 25 Mg Tablet PO Not Given BEDTIME [facility] Home Medications Medication Instructions Recorded Confirmed Last Taken Type albuterol sulfate 90 mcg/actuation 2 puff INHALATION QID PRN 10/06/20 05/24/21 10/06/20 History aerosol inhaler (ProAir HFA) bupropion HCl 150 mg 24 hr tablet, 150 mg PO DAILY 10/06/20 05/24/21 10/06/20 History extended release (Wellbutrin XL) bupropion HCl 300 mg 24 hr tablet, 300 mg PO DAILY 10/06/20 05/24/21 10/06/20 History extended release (Wellbutrin XL) cetirizine 10 mg tablet (Zyrtec) 10 mg PO DAILY 10/06/20 05/24/21 10/06/20 History duloxetine 60 mg capsule,delayed 60 mg PO DAILY 10/06/20 05/24/21 10/06/20 History release (Cymbalta) glimepiride 1 mg tablet 1 mg PO DAILY 10/06/20 05/24/21 10/06/20 History insulin glargine 100 unit/mL 20 unit SUBCUT BEDTIME 10/06/20 05/24/21 10/05/20 History subcutaneous solution (Lantus U-100 Insulin) mirtazapine 45 mg tablet 45 mg PO BEDTIME PRN 10/06/20 05/24/21 Unknown History montelukast 10 mg tablet 10 mg PO BEDTIME 10/06/20 05/24/21 10/05/20 History (Singulair) prazosin 1 mg capsule 1 mg PO BEDTIME 10/06/20 05/24/21 10/05/20 History ropinirole 1 mg tablet 1 mg PO BEDTIME 10/06/20 05/24/21 10/05/20 History tiotropium bromide 18 mcg capsule 1 cap INHALATION DAILY 10/06/20 05/24/21 10/06/20 History with inhalation device (Spiriva with HandiHaler) fenofibrate micronized 134 mg 1 tab PO QPM 05/24/21 05/24/21 Unknown History capsule fluticasone propionate 50 2 spray INTRANASAL DAILY 05/24/21 05/24/21 Unknown History mcg/actuation nasal spray,suspension lisinopril 2.5 mg tablet 1 tab PO QAM 05/24/21 05/24/21 Unknown History oxycodone-acetaminophen 5 mg-325 1 tab PO Q8H PRN 05/24/21 05/24/21 Unknown History mg tablet topiramate 50 mg tablet 1 tab PO BEDTIME 05/24/21 05/24/21 Unknown History Physical Exam Vital Signs and Narrative: Vital Signs: Last Vital Signs Temp 98.4 F 05/23/21 19:10 Pulse 78 05/24/21 00:54 Resp 16 05/24/21 01:03 BP 121/72 05/24/21 00:54 Pulse Ox 97 05/24/21 00:54 Body Mass Index 34.1 Const: General: cooperative and no acute distress Orientation/consciousness: patient oriented x3 Eyes: General: appearance normal, both eyes and all related structures Resp: Effort & Inspection: normal respiratory effort and able to speak in complete sentences Auscultation: clear to auscultation bilaterally Cardio: Rate: regular rate Rhythm: regular rhythm GI: Other: Significant tenderness in the right upper quadrant, has rebound, Palpation (GI): Soft to palpation Auscultation: normal bowel sounds Skin: General skin exam: no rashes or lesions noted Neuro: General: patient oriented x3 Cognition (Neuro): normal cognition Extrem: General: Yes normal to inspection and Yes no pedal edema Results Labs CBC and Chem 7: 05/23/21 20:41 05/23/21 20:41 Labs: Laboratory Results - last 24 hr 05/23/21 05/23/21 05/23/21 19:29 20:41 20:41 MCV 86.8 MCH 31.3 MCHC 36.0 H RDW 12.4 Plt Count 273 MPV 10.4 Immature Gran % (Auto) 0.4 Neut % (Auto) 58.2 Lymph % (Auto) 33.8 [place] % (Auto) 5.5 Eos % (Auto) 1.7 Baso % (Auto) 0.4 Lymph # (Auto) 2.6 [place] # (Auto) 0.4 Eos # (Auto) 0.1 Baso # (Auto) 0.0 Abs Immat Gran (auto) 0.03 Absolute Neuts (auto) 4.6 Absolute Nucleated RBC 0.000 Nucleated RBC % (auto) 0.0 Anion Gap 15 Estim Creat Clear Calc 82.5 Estimated GFR > 60 Random Glucose 351 H* Lactic Acid Calcium 9.8 D Magnesium 1.7 Total Bilirubin 0.3 AST 24 ALT 34 H Alkaline Phosphatase 141 H Total Protein 7.2 Albumin 4.2 Lipase 130 H Urine Color YELLOW Urine Appearance HAZY Urine pH 5.5 Ur Specific [place] >= 1.030 H Urine Protein 1+ H Urine Glucose (UA) 250 H Urine Ketones NEG Urine Blood TRACE Urine Nitrite NEG Ur Leukocyte Esterase 1+ H Urine RBC 0-2 Urine WBC 1-4 Ur Squamous Epith Cells 2+ Calcium Oxalate Crystal 2+ Urine Bacteria 1+ COVID-19 ([facility]) COVID-19 Clin Com 05/24/21 05/24/21 00:41 01:05 MCV MCH MCHC RDW Plt Count MPV Immature Gran % (Auto) Neut % (Auto) Lymph % (Auto) [place] % (Auto) Eos % (Auto) Baso % (Auto) Lymph # (Auto) [place] # (Auto) Eos # (Auto) Baso # (Auto) Abs Immat Gran (auto) Absolute Neuts (auto) Absolute Nucleated RBC Nucleated RBC % (auto) Anion Gap Estim Creat Clear Calc Estimated GFR Random Glucose Lactic Acid 1.5 Calcium Magnesium Total Bilirubin AST ALT Alkaline Phosphatase Total Protein Albumin Lipase Urine Color Urine Appearance Urine pH Ur Specific [place] Urine Protein Urine Glucose (UA) Urine Ketones Urine Blood Urine Nitrite Ur Leukocyte Esterase Urine RBC Urine WBC Ur Squamous Epith Cells Calcium Oxalate Crystal Urine Bacteria COVID-19 ([facility]) Negative COVID-19 Clin Com See Note Imaging Radiologist's Impressions: Impressions Abdomen/Pelvis CT 05/23/21 21:40 IMPRESSION: 1. Increasing hepatosplenomegaly. 2. Incidental note made of small bilateral renal cysts, small kirby hepatis lymph nodes and marked degenerative changes in the spine Assessment and Plan (1) Intractable abdominal pain: Status: Acute (2) UTI (urinary tract infection): Status: Acute (3) Hepatosplenomegaly: Status: Acute 50-year-old female with past medical history of diabetes, among others who presents to the hospital with abdominal pain # intractable abdominal pain - unclear etiology, has no elevated LFTs or bilirubin to indicate biliary tract disease - no inflammatory markers, no infectious markers, no leukocytosis afebrile - has evidence of low liver attenuation concerning for hepatic pneumatosis - this was discussed with surgery, does not feel that this needs to have any intervention - will consult GI for hepatosplenomegaly as well as abdominal pain # UTI - will start on IV antibiotics - follow cultures # diabetes - continue home insulin - will add low-dose sliding scale insulin - diabetic diet # hypertension - stable - continue home medications DVT prophylaxis: Early ambulation Quality Stroke Does the patient have a stroke diagnosis?: No VTE Prior VTE?: No VTE Risk Level:: Medical - low VTE Device Contraindication: Treatment Not Indicated VTE Drug Contraindication: Treatment Not Indicated
[2021-05-24] MEDS: Omeprazole 20 MG CAPSULE.DR PO (07:42)
[2021-05-24] MEDS: cefTRIAXone sodium 1 GM in 0.9 % Sodium Chloride 50 ML IV (07:43)
[2021-05-24 07:55] LABS: Glucose, Whole Blood 257 mg/dL (60-115)
[2021-05-24] MEDS: 0.9 % Sodium Chloride Flush 3 ML SYRINGE IVFLUSH ×3 (08:18→21:48)
--- NOTE | 2021-05-24 09:18 | P.CNGI_ITS ---
History of Present Illness Data of Consult Service Date: 05/24/21 Primary Care Provider: Unknown Physician HPI Reason for consult: abdominal pain 50-year-old female w hx of asthma, COPD, diabetes, HLD, HTN, migraine headaches, who I am seeign for assessment of abdominal pain. Patient said she has had x 3 days of severe burning upper abdominal pain concentrated around epigastrium and alfa umbilical area.No releiving factors but worse with food, not relieved with her home medications of Oxy or Tylenol. She has nausea and poor appettite but no emesis. She denies diarrhea or constipation, no melena or rectal bleeding, last stool was yesterday and normal. She also feels distended and bloated but passing gas. no fver. she noted drop of blood with urine. Labs: WBC count of 7.8 glucose of 351, UA that is positive for leukocyte esterase and some WBC otherwise unremarkable. CT of the abdomen with hypoattenutated liver and heaptomegaly --personally reviewed and no air seen in liver portal or biliary tracts, original report is suspected typo i.e pneumatosis probably meant steatosis. ? Review of Systems Review of Systems: Review of system otherwise negative Constitutional : No Weight loss, No Fever, No Chills ENT/Mouth : No sore throat, No Rhinorrhea Eyes: No Swelling, No Redness Cardiovascular : No Chest Pain, No SOB, No Edema Respiratory : No Cough, No Sputum, No Wheezing Gastrointestinal : see HPI Genitourinary : NO Dysuria, No Urinary Frequency, + Hematuria, No Urgency Musculoskeletal : No joint pain, No Myalgias, No Joint Swelling Skin : No Skin Lesions, No rash Neuro : No Weakness, No Numbness, No Dizziness, No Headache Psych : No Anxiety/Panic, No Depression Heme/Lymph: No Bruising, No Lymphadenopathy Endocrine : No Polyuria, No Polydipsia All other systems reviewed and are negative. [facility] Past Medical History Medical History Asthma COPD (chronic obstructive pulmonary disease) Diabetes Hemiplegic migraine HLD (hyperlipidemia) HTN (hypertension) Migraines Sciatica Family History Family History Sister Migraine Surgical History Surgical History H/O: hysterectomy History of ear surgery Social History Social History Household Members: None Housing: Apartment Do you presently have visiting nurse or other home services: No Alcohol intake: never Patient Tobacco Use Status: Current everyday Tobacco user Tobacco use type: Cigarette Cigarette Packs Per Day: 0.4 Cigarettes Per Day: 8 Second Hand Smoke Exposure: Yes Use of substances other than those prescribed or required for medical reasons: No Are you DNR?: No Advance Directives: No Advance Directives Information Provided: Yes Advance Directives on File: No Patient : No FDLMP: hysterectomy Poor oral hygiene: No Meds Allergies Allergy/AdvReac Type Severity Reaction Status Date / Time ENVIRONMENTAL Allergy Unknown HAYFEVER Uncoded 05/23/21 19:10 Pt states no food/medication Allergy Unknown Unknown Uncoded 05/23/21 19:10 a Active Medications: Current Medications Generic Name Dose Route Start Last Admin Trade Name Freq PRN Reason Stop Dose Admin Acetaminophen 650 mg 05/24/21 00:54 Acetaminophen 325 Mg Tablet PO Q6H PRN Pain, Mild (Pain Scale 1-3) Albuterol Sulfate 2 puff 05/24/21 00:54 Albuterol Sulfate 90 Mcg 8 Gm Inhaler INHALE QID PRN Shortness Of Breath Bupropion HCl 150 mg 05/24/21 09:00 Bupropion Hcl Xl 150 Mg Tab.Er.24h PO DAILY [facility] Bupropion HCl 300 mg 05/24/21 09:00 Bupropion Hcl Xl 300 Mg Tab.Er.24h PO DAILY [facility] Docusate Sodium 100 mg 05/24/21 00:54 Docusate Sodium 100 Mg Capsule PO DAILY PRN Constipation Duloxetine HCl 60 mg 05/24/21 09:00 Duloxetine Hcl 60 Mg Capsule.Dr PO DAILY [facility] Fenofibrate 134 mg 05/24/21 17:00 Fenofibrate,Micronized 134 Mg Capsule PO DAILY@1700 [facility] Fluticasone Propionate 2 spray 05/24/21 09:00 Fluticasone Propionate Nasal 16 Gm [place] NOSTRIL-B DAILY [facility] Ceftriaxone Sodium 1 gm/ 50 mls @ 100 mls/hr 05/24/21 06:30 05/24/21 08:17 Sodium Chloride IV Infused Q24H [facility] Infusion Insulin Glargine 20 unit 05/24/21 01:00 05/24/21 08:17 Insulin Glargine,Hum.Rec.Anlog 100 Unit/Ml 10 Ml Vial SUBCUT Not Given BEDTIME [facility] Lisinopril 2.5 mg 05/24/21 09:00 Lisinopril 2.5 Mg Tablet PO DAILY [facility] Protocol Loratadine 10 mg 05/24/21 09:00 Loratadine 10 Mg Tablet PO DAILY [facility] Mirtazapine 45 mg 05/24/21 00:54 Mirtazapine 15 Mg Tablet PO BEDTIME PRN Insomnia Montelukast Sodium 10 mg 05/24/21 01:00 05/24/21 02:07 Montelukast Sodium 10 Mg Tablet PO Not Given BEDTIME [facility] Omeprazole 20 mg 05/24/21 06:00 05/24/21 07:42 Omeprazole 20 Mg Capsule.Dr PO 20 mg DAILY@0600 [facility] Administration Ondansetron HCl 4 mg 05/24/21 00:54 Ondansetron Hcl 4 Mg/2 Ml Vial IVPUSH Q8H PRN Nausea and Vomiting Oxycodone HCl 5 mg 05/24/21 01:57 Oxycodone Hcl Immed Release 5 Mg Tablet PO Q8H PRN Pain, Moderate (Pain Scale 4-6 Prazosin HCl 1 mg 05/24/21 01:00 05/24/21 02:07 Prazosin Hcl 1 Mg Capsule PO Not Given BEDTIME [facility] Protocol Propranolol HCl 20 mg 05/24/21 01:00 05/24/21 02:07 Propranolol Hcl 20 Mg Tablet PO Not Given BID [facility] Protocol Ropinirole HCl 1 mg 05/24/21 01:00 05/24/21 02:07 Ropinirole Hcl 1 Mg Tablet PO Not Given BEDTIME [facility] Sodium Chloride 3 ml 05/24/21 08:00 05/24/21 08:18 0.9 % Sodium Chloride Flush 3 Ml Syringe IVFLUSH 3 ml QSHIFT [facility] Administration Tiotropium [place] 1 puff 05/24/21 09:00 Tiotropium [place] 18 Mcg Cap.W.Dev INHALE DAILY [facility] Topiramate 50 mg 05/24/21 01:00 05/24/21 02:07 Topiramate 25 Mg Tablet PO Not Given BEDTIME [facility] Home Medications Medication Instructions Recorded Confirmed Last Taken Type albuterol sulfate 90 mcg/actuation 2 puff INHALATION QID PRN 10/06/20 05/24/21 10/06/20 History aerosol inhaler (ProAir HFA) bupropion HCl 150 mg 24 hr tablet, 150 mg PO DAILY 10/06/20 05/24/21 10/06/20 History extended release (Wellbutrin XL) bupropion HCl 300 mg 24 hr tablet, 300 mg PO DAILY 10/06/20 05/24/21 10/06/20 History extended release (Wellbutrin XL) cetirizine 10 mg tablet (Zyrtec) 10 mg PO DAILY 10/06/20 05/24/21 10/06/20 History duloxetine 60 mg capsule,delayed 60 mg PO DAILY 10/06/20 05/24/21 10/06/20 History release (Cymbalta) glimepiride 1 mg tablet 1 mg PO DAILY 10/06/20 05/24/21 10/06/20 History insulin glargine 100 unit/mL 20 unit SUBCUT BEDTIME 10/06/20 05/24/21 10/05/20 History subcutaneous solution (Lantus U-100 Insulin) mirtazapine 45 mg tablet 45 mg PO BEDTIME PRN 10/06/20 05/24/21 Unknown History montelukast 10 mg tablet 10 mg PO BEDTIME 10/06/20 05/24/21 10/05/20 History (Singulair) prazosin 1 mg capsule 1 mg PO BEDTIME 10/06/20 05/24/21 10/05/20 History ropinirole 1 mg tablet 1 mg PO BEDTIME 10/06/20 05/24/21 10/05/20 History tiotropium bromide 18 mcg capsule 1 cap INHALATION DAILY 10/06/20 05/24/21 10/06/20 History with inhalation device (Spiriva with HandiHaler) fenofibrate micronized 134 mg 1 tab PO QPM 05/24/21 05/24/21 Unknown History capsule fluticasone propionate 50 2 spray INTRANASAL DAILY 05/24/21 05/24/21 Unknown History mcg/actuation nasal spray,suspension lisinopril 2.5 mg tablet 1 tab PO QAM 05/24/21 05/24/21 Unknown History oxycodone-acetaminophen 5 mg-325 1 tab PO Q8H PRN 05/24/21 05/24/21 Unknown History mg tablet topiramate 50 mg tablet 1 tab PO BEDTIME 05/24/21 05/24/21 Unknown History Physical Exam Vital Signs: Vital Signs: Last Vital Signs Temp 98.4 F 05/24/21 07:30 Pulse 79 05/24/21 07:30 Resp 17 05/24/21 07:30 BP 151/88 H 05/24/21 07:30 Pulse Ox 95 05/24/21 07:30 Body Mass Index 34.1 Const: General: cooperative, healthy appearing and no acute distress Orientation/consciousness: patient oriented x3 Limitations: no limitations HENMT: Head: Yes normal to inspection Ears: hearing grossly normal bilaterally General nose exam: Normal external nose present Face and sinus: Yes normal facial exam Eyes: General: appearance normal, both eyes and all related structures EOM: EOMs intact bilaterally Neck: Neck: Yes normal visual inspection Resp: Effort & Inspection: normal respiratory effort, able to speak in complete sentences and no respiratory distress Auscultation: clear to auscultation bilaterally Cardio: Rate: regular rate Rhythm: regular rhythm GI: Inspection: Yes normal to inspection Palpation (GI): Soft to palpation, Tenderness to palpation present (GI) in the epigastrum and periumbilically, no guarding and not rigid Auscultation: normal bowel sounds : General: Yes no CVA tenderness Back/Spine/Pelvis: Back: no CVA tenderness Skin: General skin exam: no rashes or lesions noted Rashes: no rashes Wounds: no wounds Neuro: General: patient oriented x3 Cognition (Neuro): normal cognition Gait exam (Neuro): Normal gait present Extrem: General: Yes normal to inspection and Yes no pedal edema Results Labs CBC & Chem 7: 05/23/21 20:41 05/23/21 20:41 Labs: Short CBC 05/23/21 Range/Units 20:41 WBC 7.8 (4.8-10.8) X10*3/uL Hgb 13.0 (12.0-16.0) g/dl Hct 36.1 L (37-47) % Plt Count 273 (160-400) X10*3/uL BMP 05/23/21 20:41 Sodium 135 Potassium 3.9 Chloride 100 Carbon Dioxide 24 BUN 17 H D Creatinine 0.92 Calcium 9.8 D Liver Function 05/23/21 Range/Units 20:41 Total Bilirubin 0.3 (0.0-1.0) mg/dL AST 24 (5-31) U/L ALT 34 H (0-31) U/L Alkaline Phosphatase 141 H (39-117) U/L Albumin 4.2 (3.5-5.0) g/dL Urine 05/23/21 Range/Units 19:29 Urine Color YELLOW Urine Appearance HAZY Urine pH 5.5 (5.0-8.0) Ur Specific [place] >= 1.030 H (1.005-1.025) Urine Protein 1+ H (NEG-TRACE) MG/DL Urine Glucose (UA) 250 H (NEG) MG/DL Assessment and Plan (1) UTI (urinary tract infection): Status: Acute (2) Hepatosplenomegaly: Status: Acute (3) Upper abdominal pain: Status: Acute 1/ Upper abdominal pain, need to exclude gastritis or infiltrative disease, PUD. CT scan on my read with thickened and contracted stomach wall 2/ UTI--on ABX therapy 3/ Hepatic steatosis, chronic, likely PRADO due to obesity--no pneumatosis on my view of the images PLAN: 1/ EGD today for further assessment 2/liver serologies as o/p 3/ try pantoprazole 40 gm bid for the meantime 4/ treat suspected UTI as doing in case contributing to her pain Procedures Date of Service Date of Service: 05/24/21
--- NOTE | 2021-05-24 09:26 | PC.NURSE ---
nurse to nurse given to mario (rn), pt aware of plan of care.
[2021-05-24 09:59] LABS: Glucose, Whole Blood 254 mg/dL (60-115)
[2021-05-24] MEDS: Lactated Ringers 1,000 ML 50 ML IVCONT (10:00)
--- NOTE | 2021-05-24 12:06 | P.CONGS_ITS ---
History of Present Illness Consult details Consult date: 05/24/21 <KLAUS Zamudio Last Filed: 05/24/21 12:41> Reason for consult: abdominal pain <KLAUS Zamudio Last Filed: 05/24/21 12:41> Requesting physician: Rosalina Colon <KLAUS Zamudio Last Filed: 05/24/21 12:41> Narrative: 50-year-old [place]odian-speaking female who presented to the ED with complaints of abdominal pain. The abdominal pain began Friday but has worsened over the past couple days. It was unrelieved by her home oxycodone dose and tylenol, prompting her to seek care. The pain is sharp and constant in nature, in the mid abdomen and radiates across the abdomen to the back. It is a 10/10 in severity.? She denies nausea, vomiting, diarrhea, constipation, fevers or chills. CT of the abdomen was generally unrevealing but did show hepatosplenomegaly. CBC, BMP, LFTs were obtained and were significant for a glucose of 351, slightly elevated lipase of 130. UA is positive for leukocyte esterase and some WBC. Patient received multiple doses of IV pain medication with no relief of her symptoms and was therefore admitted to the medical service for intractable pain. This morning, her pain has slightly improved. She admits to taking Naproxen twice a day. She denies any dark tarry stools or blood in her stool. <KLAUS Zamudio Last Filed: 05/24/21 12:41> Review of Systems Constitutional: Constitutional: Denies chills, Denies fever(s), Denies malaise and Denies weight loss <KLAUS Zamudio Last Filed: 05/24/21 12:41> Eyes: Eyes: Denies change in vision <KLAUS Zamudio Last Filed: 05/24/21 12:41> ENT: Denies dizziness <KLAUS Zamudio Last Filed: 05/24/21 12:41> Cardiovascular: Cardiovascular: Denies chest pain at rest, Denies palpitations and Denies dyspnea <KLAUS Zamudio Last Filed: 05/24/21 12:41> Respiratory: Respiratory: Denies cough, Denies dyspnea and Denies wheezing <Tami Wall PA-C Last Filed: 05/24/21 12:41> Gastrointestinal: Gastrointestinal: Reports as per HPI, Denies melena, Denies hematochezia and Denies change in bowel habits <Tami Wall PA-C Last Filed: 05/24/21 12:41> Genitourinary: Genitourinary: Denies hematuria and Denies dysuria <Tami Wall PA-C Last Filed: 05/24/21 12:41> Integumentary/Breasts: Skin/Breast: Denies rash and Denies jaundice <Tami Wall PA-C Last Filed: 05/24/21 12:41> Neurologic: Denies dizziness <Tami Wall PA-C Last Filed: 05/24/21 12:41> Endocrine: Endocrine: Denies palpitations <Tami Wall PA-C Last Filed: 05/24/21 12:41> Allergic/Immunologic: Allergic/Immunologic: Denies wheezing <Tami Wall PA-C Last Filed: 05/24/21 12:41> [facility] Past Medical History Medical History: Medical History Asthma COPD (chronic obstructive pulmonary disease) Diabetes Hemiplegic migraine HLD (hyperlipidemia) HTN (hypertension) Migraines Sciatica <Tami Wall PA-C Last Filed: 05/24/21 12:41> Family History Family History: Family History Sister Migraine <Tami Wall PA-C Last Filed: 05/24/21 12:41> Surgical History Surgical History: Surgical History H/O: hysterectomy History of ear surgery Hx laparoscopic cholecystectomy <Tami Wall PA-C Last Filed: 05/24/21 12:41> Social History Social History: Social History Household Members: None Housing: Apartment Do you presently have visiting nurse or other home services: No Alcohol intake: never Patient Tobacco Use Status: Current everyday Tobacco user Tobacco use type: Cigarette Cigarette Packs Per Day: 0.4 Cigarettes Per Day: 8 Second Hand Smoke Exposure: Yes Use of substances other than those prescribed or required for medical reasons: No Are you DNR?: No Advance Directives: No Advance Directives Information Provided: Yes Advance Directives on File: No Patient : No FDLMP: hysterectomy Poor oral hygiene: No <Tami Wall PA-C - Last Filed: 05/24/21 12:41> Meds Allergies/Adverse reactions: Allergies Allergy/AdvReac Type Severity Reaction Status Date / Time ENVIRONMENTAL Allergy Unknown HAYFEVER Uncoded 05/23/21 19:10 Pt states no food/medication Allergy Unknown Unknown Uncoded 05/23/21 19:10 a <Tami Wall PA-C - Last Filed: 05/24/21 12:41> Active Medications: Current Medications Generic Name Dose Route Start Last Admin Trade Name Freq PRN Reason Stop Dose Admin Acetaminophen 650 mg 05/24/21 00:54 Acetaminophen 325 Mg Tablet PO Q6H PRN Pain, Mild (Pain Scale 1-3) Albuterol Sulfate 2 puff 05/24/21 00:54 Albuterol Sulfate 90 Mcg 8 Gm Inhaler INHALE QID PRN Shortness Of Breath Bupropion HCl 150 mg 05/24/21 09:00 Bupropion Hcl Xl 150 Mg Tab.Er.24h PO DAILY KORY Bupropion HCl 300 mg 05/24/21 09:00 Bupropion Hcl Xl 300 Mg Tab.Er.24h PO DAILY KORY Docusate Sodium 100 mg 05/24/21 00:54 Docusate Sodium 100 Mg Capsule PO DAILY PRN Constipation Duloxetine HCl 60 mg 05/24/21 09:00 Duloxetine Hcl 60 Mg Capsule.Dr PO DAILY KORY Fenofibrate 134 mg 05/24/21 17:00 Fenofibrate,Micronized 134 Mg Capsule PO DAILY@1700 KORY Fluticasone Propionate 2 spray 05/24/21 09:00 Fluticasone Propionate Nasal 16 Gm [place] NOSTRIL-B DAILY [facility] Ceftriaxone Sodium 1 gm/ 50 mls @ 100 mls/hr 05/24/21 06:30 05/24/21 08:17 Sodium Chloride IV Infused Q24H [facility] Infusion Lactated Ringer's 1,000 mls @ 50 mls/hr 05/24/21 10:30 Lr IVCONT .Q20H [facility] Insulin Glargine 20 unit 05/24/21 01:00 05/24/21 08:17 Insulin Glargine,Hum.Rec.Anlog 100 Unit/Ml 10 Ml Vial SUBCUT Not Given BEDTIME [facility] Lisinopril 2.5 mg 05/24/21 09:00 Lisinopril 2.5 Mg Tablet PO DAILY [facility] Protocol Loratadine 10 mg 05/24/21 09:00 Loratadine 10 Mg Tablet PO DAILY [facility] Mirtazapine 45 mg 05/24/21 00:54 Mirtazapine 15 Mg Tablet PO BEDTIME PRN Insomnia Montelukast Sodium 10 mg 05/24/21 01:00 05/24/21 02:07 Montelukast Sodium 10 Mg Tablet PO Not Given BEDTIME [facility] Omeprazole 20 mg 05/24/21 06:00 05/24/21 07:42 Omeprazole 20 Mg Capsule.Dr PO 20 mg DAILY@0600 [facility] Administration Ondansetron HCl 4 mg 05/24/21 00:54 Ondansetron Hcl 4 Mg/2 Ml Vial IVPUSH Q8H PRN Nausea and Vomiting Oxycodone HCl 5 mg 05/24/21 01:57 Oxycodone Hcl Immed Release 5 Mg Tablet PO Q8H PRN Pain, Moderate (Pain Scale 4-6 Prazosin HCl 1 mg 05/24/21 01:00 05/24/21 02:07 Prazosin Hcl 1 Mg Capsule PO Not Given BEDTIME [facility] Protocol Propranolol HCl 20 mg 05/24/21 01:00 05/24/21 02:07 Propranolol Hcl 20 Mg Tablet PO Not Given BID [facility] Protocol Ropinirole HCl 1 mg 05/24/21 01:00 05/24/21 02:07 Ropinirole Hcl 1 Mg Tablet PO Not Given BEDTIME [facility] Sodium Chloride 3 ml 05/24/21 08:00 05/24/21 08:18 0.9 % Sodium Chloride Flush 3 Ml Syringe IVFLUSH 3 ml QSHIFT [facility] Administration Tiotropium [place] 1 puff 05/24/21 09:00 05/24/21 09:21 Tiotropium [place] 18 Mcg Cap.W.Dev INHALE 1 puff DAILY KORY Administration Topiramate 50 mg 05/24/21 01:00 05/24/21 02:07 Topiramate 25 Mg Tablet PO Not Given BEDTIME KORY <Tami Wall PA-C - Last Filed: 05/24/21 12:41> Home medications: Home Medications Medication Instructions Recorded Confirmed Last Taken Type albuterol sulfate 90 mcg/actuation 2 puff INHALATION QID PRN 10/06/20 05/24/21 10/06/20 History aerosol inhaler (ProAir HFA) bupropion HCl 150 mg 24 hr tablet, 150 mg PO DAILY 10/06/20 05/24/21 10/06/20 History extended release (Wellbutrin XL) bupropion HCl 300 mg 24 hr tablet, 300 mg PO DAILY 10/06/20 05/24/21 10/06/20 History extended release (Wellbutrin XL) cetirizine 10 mg tablet (Zyrtec) 10 mg PO DAILY 10/06/20 05/24/21 10/06/20 History duloxetine 60 mg capsule,delayed 60 mg PO DAILY 10/06/20 05/24/21 10/06/20 History release (Cymbalta) glimepiride 1 mg tablet 1 mg PO DAILY 10/06/20 05/24/21 10/06/20 History insulin glargine 100 unit/mL 20 unit SUBCUT BEDTIME 10/06/20 05/24/21 10/05/20 History subcutaneous solution (Lantus U-100 Insulin) mirtazapine 45 mg tablet 45 mg PO BEDTIME PRN 10/06/20 05/24/21 Unknown History montelukast 10 mg tablet 10 mg PO BEDTIME 10/06/20 05/24/21 10/05/20 History (Singulair) prazosin 1 mg capsule 1 mg PO BEDTIME 10/06/20 05/24/21 10/05/20 History ropinirole 1 mg tablet 1 mg PO BEDTIME 10/06/20 05/24/21 10/05/20 History tiotropium bromide 18 mcg capsule 1 cap INHALATION DAILY 10/06/20 05/24/2120 History with inhalation device (Spiriva with HandiHaler) fenofibrate micronized 134 mg 1 tab PO QPM 05/24/21 05/24/21 Unknown History capsule fluticasone propionate 50 2 spray INTRANASAL DAILY 05/24/21 05/24/21 Unknown History mcg/actuation nasal spray,suspension lisinopril 2.5 mg tablet 1 tab PO QAM 05/24/21 05/24/21 Unknown History oxycodone-acetaminophen 5 mg-325 1 tab PO Q8H PRN 05/24/21 05/24/21 Unknown History mg tablet topiramate 50 mg tablet 1 tab PO BEDTIME 05/24/21 05/24/21 Unknown History <KLAUS Zamudio Last Filed: 05/24/21 12:41> Physical Exam Vital Signs: Vital Signs: Last Vital Signs Temp 97.9 F 05/24/21 09:43 Pulse 77 05/24/21 09:43 Resp 18 05/24/21 09:43 BP 154/85 H 05/24/21 09:43 Pulse Ox 96 05/24/21 09:43 Body Mass Index 34.1 <KLAUS Zamudio Last Filed: 05/24/21 12:41> Const: General: healthy appearing, comfortable, no acute distress and alert <KLAUS Zamudio Last Filed: 05/24/21 12:41> Orientation/consciousness: patient oriented x3 <KLAUS Zamudio ast Filed: 05/24/21 12:41> Eyes: Sclerae: sclerae normal <KLAUS Zamudio Last Filed: 05/24/21 12:41> Resp: Effort & Inspection: normal respiratory effort <KLAUS Zamudio Last Filed: 05/24/21 12:41> Cardio: Rate: regular rate <KLAUS Zamudio Last Filed: 05/24/21 12:41> Rhythm: regular rhythm <KLAUS Zamudio Last Filed: 05/24/21 12:41> GI: Inspection: No distended and Yes scar <KLAUS Zamudio Last Filed: 05/24/21 12:41> Palpation (GI): Soft to palpation, Tenderness to palpation present (GI) in the epigastrum and in the RUQ, no guarding and not rigid <Tami Wall PA-C Nick Last Filed: 05/24/21 12:41> Percussion: Yes normal to percussion <Tami Wall PA-C Nick Last Filed: 05/24/21 12:41> Skin: General skin exam: no rashes or lesions noted <Tami Wall PA-C Nick Last Filed: 05/24/21 12:41> Neuro: General: patient oriented x3 <Tami Wall PA-C Nick Last Filed: 05/24/21 12:41> Extrem: General: Yes no clubbing, cyanosis or edema <Tami Wall PA-C Nick Last Filed: 05/24/21 12:41> Results Labs Result diagrams: : 05/23/21 20:41 05/23/21 20:41 <Tami Wall PA-C Nick Last Filed: 05/24/21 12:41> Labs: Abnormal lab results 05/23/21 05/23/21 05/23/21 Range/Units 19:29 20:41 20:41 RBC 4.16 L (4.20-5.50) X10*6/uL Hct 36.1 L (37-47) % MCHC 36.0 H (31.0-35.0) g/dl BUN 17 H D (9-16) mg/dL POC Glucose (60-115) mg/dL Random Glucose 351 H* (60-115) mg/dL ALT 34 H (0-31) U/L Alkaline Phosphatase 141 H (39-117) U/L Lipase 130 H (8-78) U/L Ur Specific [place] >= 1.030 H (1.005-1.025) Urine Protein 1+ H (NEG-TRACE) MG/DL Urine Glucose (UA) 250 H (NEG) MG/DL Ur Leukocyte Esterase 1+ H (NEG) 05/24/21 05/24/21 Range/Units 07:50 09:54 RBC (4.20-5.50) X10*6/uL Hct (37-47) % MCHC (31.0-35.0) g/dl BUN (9-16) mg/dL POC Glucose 257 H 254 H (60-115) mg/dL Random Glucose (60-115) mg/dL ALT (0-31) U/L Alkaline Phosphatase (39-117) U/L Lipase (8-78) U/L Ur Specific [place] (1.005-1.025) Urine Protein (NEG-TRACE) MG/DL Urine Glucose (UA) (NEG) MG/DL Ur Leukocyte Esterase (NEG) Short CBC 05/23/21 Range/Units 20:41 WBC 7.8 (4.8-10.8) X10*3/uL Hgb 13.0 (12.0-16.0) g/dl Hct 36.1 L (37-47) % Plt Count 273 (160-400) X10*3/uL BMP 05/23/21 20:41 Sodium 135 Potassium 3.9 Chloride 100 Carbon Dioxide 24 BUN 17 H D Creatinine 0.92 Calcium 9.8 D Liver Function 05/23/21 Range/Units 20:41 Total Bilirubin 0.3 (0.0-1.0) mg/dL AST 24 (5-31) U/L ALT 34 H (0-31) U/L Alkaline Phosphatase 141 H (39-117) U/L Albumin 4.2 (3.5-5.0) g/dL Urine 05/23/21 Range/Units 19:29 Urine Color YELLOW Urine Appearance HAZY Urine pH 5.5 (5.0-8.0) Ur Specific [place] >= 1.030 H (1.005-1.025) Urine Protein 1+ H (NEG-TRACE) MG/DL Urine Glucose (UA) 250 H (NEG) MG/DL All other labs normal. <Tami Wall PA-C - Last Filed: 05/24/21 12:41> Assessment and Plan (1) Abdominal pain: Qualifiers: Abdominal location: right upper quadrant Qualified Code(s): R10.11 - Right upper quadrant pain <KLAUS Zamudio Last Filed: 05/24/21 12:41> Status: Acute <KLAUS Zamudio Last Filed: 05/24/21 12:41> Patient seen and examined Mild tenderness now on the epigastric area with no guarding or rebound Reviewed her CAT scan does not reveal any significant pathology to explain her pain Patient being followed by GI - EGD just done did not show any significant pathology Biopsies were done however Will follow the patient Exam otherwise benign Agree with PPI for now <Jamar Asif MD - Last Filed: 05/24/21 16:08> Procedures Date of Service Date of Service: 05/24/21 <Tami Wall PA-C - Last Filed: 05/24/21 12:41>
--- NOTE | 2021-05-24 12:16 | MHC.SHP ---
Pre-Procedural Eval Section A Date of Service: 05/24/21 The patient is an INPATIENT: Yes The History & Physical has been completed within 30 days and I have reviewed it.: Yes Section B Chief Complaint: intractable abd pain Allergies: Allergies Allergy/AdvReac Type Severity Reaction Status Date / Time ENVIRONMENTAL Allergy Unknown HAYFEVER Uncoded 05/23/21 19:10 Pt states no food/medication Allergy Unknown Unknown Uncoded 05/23/21 19:10 a Plan Diagnosis/Plan: Unchanged I have reviewed the history and physical and performed a pertinent physical examination on my patient. No changes have occurred unless specified.
--- NOTE | 2021-05-24 12:30 | P.BOP_ITS ---
Brief Operative Note Date of Service: 05/24/21 Pre-op diagnosis: abdominal pain Post-op diagnosis: same Procedure: see op note Surgeon: Cj Liao MD Anesthesia: MAC Was an Technical Operations Vice President used for this Procedure?: No Estimated blood loss (mL): 0 Condition: stable Disposition: PACU
--- NOTE | 2021-05-24 12:31 | W.PM.OPN ---
Operative Note Operative Note Date of Service: 05/24/21 Narrative: Procedure Description: EGD FLEXIBLE TRANSORAL UPPER GASTROINTESTINAL ENDOSCOPY UPPER ENDOSCOPY Consent: Indications for the procedure and potential complications of bleeding, perforation, reaction to medications and missed diagnosis were discussed with the patient and informed consent was obtained. Instrument: Olympus GIF H 190 J mid size upper endoscope Monitoring: Vital signs and clinical assessment, continuous EKG monitoring, Pulse oximetry, Carbon Dioxide monitoring and blood pressure monitoring were done throughout the procedure. Procedure: The patient was placed in the left lateral decubitis position and pre-procedure medications were administered and a bite block was placed. The endoscope was inserted into the mouth and advanced under direct vision to the third part of duodenum. A careful inspection was made as the upper endoscope was withdrawn including a retroflexed examination of the proximal stomach; Findings and interventions are described below. Findings: Larynx:normal Esophagus: GE junction at 38 cm, diaphragm hiatus at 38 cm, mild esophagitis. Stomach: Normal mucosa. Biopsies were obtained. Grade 2 flap valve on retroflexed examination of the cardia. Reduced gastric motility. Duodenum: Normal bulb and descending duodenum, bx taken Intervention: Biopsies as noted above Impression/Findings: possible gastroparesis esophagitis PLAN: Pantoprazole 40 mg bid US liver and GB if sx persist then GES
--- NOTE | 2021-05-24 12:34 | HO.ANESPROP2 ---
[facility] Active Problems Active Problems: All Active Problems (Updated 05/24/21 @ 12:15 by Cj Liao MD) Upper abdominal pain (Acute) Hepatosplenomegaly (Acute) UTI (urinary tract infection) (Acute) Intractable abdominal pain (Acute) Abdominal pain (Acute) Hemiplegic migraine (Acute) Complicated migraine (Acute) GERD (gastroesophageal reflux disease) (Acute) Constipation (Acute) Acute headache (Acute) Acute hyperglycemia (Acute) Past Medical History Medical History Asthma COPD (chronic obstructive pulmonary disease) Diabetes Hemiplegic migraine HLD (hyperlipidemia) HTN (hypertension) Migraines Sciatica Family History Family History Sister Migraine Surgical History Surgical History H/O: hysterectomy History of ear surgery Hx laparoscopic cholecystectomy History of Problems with Anesthesia: No Social History Social History Household Members: None Housing: Apartment Do you presently have visiting nurse or other home services: No Alcohol intake: never Patient Tobacco Use Status: Current everyday Tobacco user Tobacco use type: Cigarette Cigarette Packs Per Day: 0.4 Cigarettes Per Day: 8 Second Hand Smoke Exposure: Yes Use of substances other than those prescribed or required for medical reasons: No Are you DNR?: No Advance Directives: No Advance Directives Information Provided: Yes Advance Directives on File: No Patient : No FDLMP: hysterectomy Poor oral hygiene: No Meds Allergies Allergy/AdvReac Type Severity Reaction Status Date / Time ENVIRONMENTAL Allergy Unknown HAYFEVER Uncoded 05/23/21 19:10 Pt states no food/medication Allergy Unknown Unknown Uncoded 05/23/21 19:10 a Active Medications: Current Medications Generic Name Dose Route Start Last Admin Trade Name Freq PRN Reason Stop Dose Admin Acetaminophen 650 mg 05/24/21 00:54 Acetaminophen 325 Mg Tablet PO Q6H PRN Pain, Mild (Pain Scale 1-3) Albuterol Sulfate 2 puff 05/24/21 00:54 Albuterol Sulfate 90 Mcg 8 Gm Inhaler INHALE QID PRN Shortness Of Breath Bupropion HCl 150 mg 05/24/21 09:00 Bupropion Hcl Xl 150 Mg Tab.Er.24h PO DAILY [facility] Bupropion HCl 300 mg 05/24/21 09:00 Bupropion Hcl Xl 300 Mg Tab.Er.24h PO DAILY [facility] Docusate Sodium 100 mg 05/24/21 00:54 Docusate Sodium 100 Mg Capsule PO DAILY PRN Constipation Duloxetine HCl 60 mg 05/24/21 09:00 Duloxetine Hcl 60 Mg Capsule. PO DAILY [facility] Fenofibrate 134 mg 05/24/21 17:00 Fenofibrate,Micronized 134 Mg Capsule PO DAILY@1700 [facility] Fluticasone Propionate 2 spray 05/24/21 09:00 Fluticasone Propionate Nasal 16 Gm [place] NOSTRIL-B DAILY [facility] Ceftriaxone Sodium 1 gm/ 50 mls @ 100 mls/hr 05/24/21 06:30 05/24/21 08:17 Sodium Chloride IV Infused Q24H [facility] Infusion Lactated Ringer's 1,000 mls @ 50 mls/hr 05/24/21 10:30 05/24/21 10:00 Lr IVCONT 50 mls/hr .Q20H [facility] Administration Insulin Glargine 20 unit 05/24/21 01:00 05/24/21 08:17 Insulin Glargine,Hum.Rec.Anlog 100 Unit/Ml 10 Ml Vial SUBCUT Not Given BEDTIME [facility] Lisinopril 2.5 mg 05/24/21 09:00 Lisinopril 2.5 Mg Tablet PO DAILY [facility] Protocol Loratadine 10 mg 05/24/21 09:00 Loratadine 10 Mg Tablet PO DAILY [facility] Mirtazapine 45 mg 05/24/21 00:54 Mirtazapine 15 Mg Tablet PO BEDTIME PRN Insomnia Montelukast Sodium 10 mg 05/24/21 01:00 05/24/21 02:07 Montelukast Sodium 10 Mg Tablet PO Not Given BEDTIME [facility] Omeprazole 20 mg 05/24/21 06:00 05/24/21 07:42 Omeprazole 20 Mg Capsule. PO 20 mg DAILY@0600 [facility] Administration Ondansetron HCl 4 mg 05/24/21 00:54 Ondansetron Hcl 4 Mg/2 Ml Vial IVPUSH Q8H PRN Nausea and Vomiting Oxycodone HCl 5 mg 05/24/21 01:57 Oxycodone Hcl Immed Release 5 Mg Tablet PO Q8H PRN Pain, Moderate (Pain Scale 4-6 Prazosin HCl 1 mg 05/24/21 01:00 05/24/21 02:07 Prazosin Hcl 1 Mg Capsule PO Not Given BEDTIME [facility] Protocol Propranolol HCl 20 mg 05/24/21 01:00 05/24/21 02:07 Propranolol Hcl 20 Mg Tablet PO Not Given BID [facility] Protocol Ropinirole HCl 1 mg 05/24/21 01:00 05/24/21 02:07 Ropinirole Hcl 1 Mg Tablet PO Not Given BEDTIME [facility] Sodium Chloride 3 ml 05/24/21 08:00 05/24/21 08:18 0.9 % Sodium Chloride Flush 3 Ml Syringe IVFLUSH 3 ml QSHIFT [facility] Administration Tiotropium [place] 1 puff 05/24/21 09:00 05/24/21 09:21 Tiotropium [place] 18 Mcg Cap.W.Dev INHALE 1 puff DAILY [facility] Administration Topiramate 50 mg 05/24/21 01:00 05/24/21 02:07 Topiramate 25 Mg Tablet PO Not Given BEDTIME [facility] Home Medications Medication Instructions Recorded Confirmed Last Taken Type albuterol sulfate 90 mcg/actuation 2 puff INHALATION QID PRN 10/06/20 05/24/21 10/06/20 History aerosol inhaler (ProAir HFA) bupropion HCl 150 mg 24 hr tablet, 150 mg PO DAILY 10/06/20 05/24/21 10/06/20 History extended release (Wellbutrin XL) bupropion HCl 300 mg 24 hr tablet, 300 mg PO DAILY 10/06/20 05/24/21 10/06/20 History extended release (Wellbutrin XL) cetirizine 10 mg tablet (Zyrtec) 10 mg PO DAILY 10/06/20 05/24/21 10/06/20 History duloxetine 60 mg capsule,delayed 60 mg PO DAILY 10/06/20 05/24/21 10/06/20 History release (Cymbalta) glimepiride 1 mg tablet 1 mg PO DAILY 10/06/20 05/24/21 10/06/20 History insulin glargine 100 unit/mL 20 unit SUBCUT BEDTIME 10/06/20 05/24/2110/05/20 History subcutaneous solution (Lantus U-100 Insulin) mirtazapine 45 mg tablet 45 mg PO BEDTIME PRN 10/06/20 05/24/21 Unknown History montelukast 10 mg tablet 10 mg PO BEDTIME 10/06/20 05/24/21 10/05/20 History (Singulair) prazosin 1 mg capsule 1 mg PO BEDTIME 10/06/20 05/24/21 10/05/20 History ropinirole 1 mg tablet 1 mg PO BEDTIME 10/06/20 05/24/21 10/05/20 History tiotropium bromide 18 mcg capsule 1 cap INHALATION DAILY 10/06/20 05/24/21 10/06/20 History with inhalation device (Spiriva with HandiHaler) fenofibrate micronized 134 mg 1 tab PO QPM 05/24/21 05/24/21 Unknown History capsule fluticasone propionate 50 2 spray INTRANASAL DAILY 05/24/21 05/24/21 Unknown History mcg/actuation nasal spray,suspension lisinopril 2.5 mg tablet 1 tab PO QAM 05/24/21 05/24/21 Unknown History oxycodone-acetaminophen 5 mg-325 1 tab PO Q8H PRN 05/24/21 05/24/21 Unknown History mg tablet topiramate 50 mg tablet 1 tab PO BEDTIME 05/24/21 05/24/21 Unknown History Exam Exam Date and Time: May 24, 2021 1234 Height,Weight and Vital Signs: Height 5 ft 5 in Weight 205 lb Last Vital Signs Temp 97.9 F 05/24/21 09:43 Pulse 77 05/24/21 09:43 Resp 18 05/24/21 09:43 BP 154/85 H 05/24/21 09:43 Pulse Ox 96 05/24/21 09:43 Pertinent Lab Results Pertinent Lab Results: Laboratory Tests 05/23/21 05/23/21 05/23/21 19:29 20:41 20:41 WBC 7.8 RBC 4.16 L Hgb 13.0 Hct 36.1 L MCV 86.8 MCH 31.3 MCHC 36.0 H RDW 12.4 Plt Count 273 MPV 10.4 Immature Gran % (Auto) 0.4 Neut % (Auto) 58.2 Lymph % (Auto) 33.8 [place] % (Auto) 5.5 Eos % (Auto) 1.7 Baso % (Auto) 0.4 Lymph # (Auto) 2.6 [place] # (Auto) 0.4 Eos # (Auto) 0.1 Baso # (Auto) 0.0 Abs Immat Gran (auto) 0.03 Absolute Neuts (auto) 4.6 Absolute Nucleated RBC 0.000 Nucleated RBC % (auto) 0.0 Sodium 135 Potassium 3.9 Chloride 100 Carbon Dioxide 24 Anion Gap 15 BUN 17 H D Creatinine 0.92 Estim Creat Clear Calc 82.5 Estimated GFR > 60 POC Glucose Random Glucose 351 H* Lactic Acid Calcium 9.8 D Magnesium 1.7 Total Bilirubin 0.3 AST 24 ALT 34 H Alkaline Phosphatase 141 H Total Protein 7.2 Albumin 4.2 Lipase 130 H Urine Color YELLOW Urine Appearance HAZY Urine pH 5.5 Ur Specific [place] >= 1.030 H Urine Protein 1+ H Urine Glucose (UA) 250 H Urine Ketones NEG Urine Blood TRACE Urine Nitrite NEG Ur Leukocyte Esterase 1+ H Urine RBC 0-2 Urine WBC 1-4 Ur Squamous Epith Cells 2+ Calcium Oxalate Crystal 2+ Urine Bacteria 1+ COVID-19 (PORFIRIO) COVID-[place] Mobile Com 05/24/21 05/24/21 05/24/21 00:41 01:05 07:50 WBC RBC Hgb Hct MCV MCH MCHC RDW Plt Count MPV Immature Gran % (Auto) Neut % (Auto) Lymph % (Auto) [place] % (Auto) Eos % (Auto) Baso % (Auto) Lymph # (Auto) [place] # (Auto) Eos # (Auto) Baso # (Auto) Abs Immat Gran (auto) Absolute Neuts (auto) Absolute Nucleated RBC Nucleated RBC % (auto) Sodium Potassium Chloride Carbon Dioxide Anion Gap BUN Creatinine Estim Creat Clear Calc Estimated GFR POC Glucose 257 H Random Glucose Lactic Acid 1.5 Calcium Magnesium Total Bilirubin AST ALT Alkaline Phosphatase Total Protein Albumin Lipase Urine Color Urine Appearance Urine pH Ur Specific [place] Urine Protein Urine Glucose (UA) Urine Ketones Urine Blood Urine Nitrite Ur Leukocyte Esterase Urine RBC Urine WBC Ur Squamous Epith Cells Calcium Oxalate Crystal Urine Bacteria COVID-19 (PORFIRIO) Negative COVID-19 Clin Com See Note 05/24/21 09:54 WBC RBC Hgb Hct MCV MCH MCHC RDW Plt Count MPV Immature Gran % (Auto) Neut % (Auto) Lymph % (Auto) [place] % (Auto) Eos % (Auto) Baso % (Auto) Lymph # (Auto) [place] # (Auto) Eos # (Auto) Baso # (Auto) Abs Immat Gran (auto) Absolute Neuts (auto) Absolute Nucleated RBC Nucleated RBC % (auto) Sodium Potassium Chloride Carbon Dioxide Anion Gap BUN Creatinine Estim Creat Clear Calc Estimated GFR POC Glucose 254 H Random Glucose Lactic Acid Calcium Magnesium Total Bilirubin AST ALT Alkaline Phosphatase Total Protein Albumin Lipase Urine Color Urine Appearance Urine pH Ur Specific [place] Urine Protein Urine Glucose (UA) Urine Ketones Urine Blood Urine Nitrite Ur Leukocyte Esterase Urine RBC Urine WBC Ur Squamous Epith Cells Calcium Oxalate Crystal Urine Bacteria COVID-19 (PORFIRIO) COVID-19 Clin Com Airway Mallampati Class: III TM Dist: >3cm Neck ROM: Full Assessment and Plan Assessment Anesthesia Assessment: Anesthesia Plan Discussed and Chart Reviewed Final Anesthetic Review History of Problems with Anesthesia: No NPO: Yes ASA Class: III and Emergency Final Preanesthetic Review: No Changes in Pt Med Stat, Meds/Allgs Chart Reviewed, Consent Obtained/Reviewed and Anes Risks/Benef Reviewed Patient Risk: Intermediate Procedure Risk: Low Anesthetic Plan Anesthetic Plan: MAC: Disposition: Standard PACU
[2021-05-24] MEDS: oxyCODONE HCl Immed Release 5 MG TABLET PO (14:58)
[2021-05-24 16:22] LABS: Glucose, Whole Blood 192 mg/dL (60-115)
[2021-05-24] MEDS: Acetaminophen 325 MG TABLET 650 MG PO (16:32)
[2021-05-24] MEDS: Omeprazole 40 MG CAPSULE.DR PO (16:32)
[2021-05-24] MEDS: Insulin Lispro 100 UNIT/ML 3 ML VIAL SUBCUT (16:32)
--- NOTE | 2021-05-24 16:33 | P.EN_ITS ---
Event Note Date of Service: 05/24/21 Event Note: This is a 50 year old female with history of COPD/asthma, HTN, florin alvaro who presented with abdominal pain since Friday and admitted for the same. abdominal pain probable hepatic pneumatosis/liver disease on CT, seen by surgery, no surgical intervention required Seen by GI, s/p EGD showing esophagitis, probable gastroparesis -increase PPI to b.i.d. -abdominal ultrasound -if the symptoms persist recommend GES -supportive care -npo possible UTI fu Ucx -continue iv ceftriaxone for now continue other baseline medications will decrease dose of lantus as pt npo attending - dr. rodríguez
[2021-05-24] MEDS: Fenofibrate,Micronized 134 MG CAPSULE PO (17:41)
--- NOTE | 2021-05-24 19:53 | PM.EVENT ---
Event Note Date of Service: 05/24/21 Event Note: Diet advanced, as pt feeling hungry and wants to try to eat
[2021-05-24] MEDS: Montelukast Sodium 10 MG TABLET PO (20:24)
[2021-05-24] MEDS: Topiramate 25 MG TABLET 50 MG PO (20:24)
[2021-05-24] MEDS: Propranolol HCL 20 MG TABLET PO (20:24)
[2021-05-24] MEDS: rOPINIRole HCL 1 MG TABLET PO (20:24)
[2021-05-24] MEDS: Prazosin HCL 1 MG CAPSULE PO (20:24)
[2021-05-24 20:27] LABS: Glucose, Whole Blood 140 mg/dL (60-115)
[2021-05-24] MEDS: Insulin Glargine,Hum.rec.anlog 100 UNIT/ML 10 ML VIAL 10 UNIT SUBCUT (21:47)
[2021-05-25] MEDS: oxyCODONE HCl Immed Release 5 MG TABLET PO (00:54)
[2021-05-25] MEDS: Lactated Ringers 1,000 ML 50 ML IVCONT (00:55)
[2021-05-25 04:00] VITALS: BP 136/89; PULSE 79; RESP 18; TEMP 36.7; O2SAT 98
[2021-05-25] MEDS: cefTRIAXone sodium 1 GM in 0.9 % Sodium Chloride 50 ML IV (05:30)
[2021-05-25 05:58] LABS: MANUAL DIFF FLAG NO
[2021-05-25 06:05] LABS: Basophils Percent Auto 0.4 % (0-2); Eosinophils Absolute Auto 0.1 X10*3/uL (0.0-0.4); Eosinophils Percent Auto 2.5 % (0-4); Hematocrit 36.2 % (37-47); Hemoglobin 12.7 g/dl (12.0-16.0); Imm Gran Abs Auto 0.01 X10*3/uL (0.00-0.03); Imm Gran Pct Auto 0.2 % (0.0-0.4); Lymphocytes Absolute Auto 1.6 X10*3/uL (1.2-4.9); Lymphocytes Percent Auto 28.9 % (20-40); Mean Corpuscular HGB Conc 35.1 g/dl (31.0-35.0); Mean Corpuscular Hemoglobin 30.5 pg (27.0-33.0); Mean Platelet Volume 10.7 fL (9.4-12.3); Monocytes Absolute Auto 0.3 X10*3/uL (0.1-1.2); Monocytes Percent Auto 5.7 % (2-11); Neutrophils Absolute Auto 3.5 X10*3/uL (2.0-8.3); Neutrophils Percent Auto 62.3 % (45-73); Platelet Count 240 X10*3/uL (160-400); Red Blood Count 4.16 X10*6/uL (4.20-5.50); Red Cell Distribution Width 12.2 % (11.0-16.0); White Blood Count 5.6 X10*3/uL (4.8-10.8)
[2021-05-25 06:42] LABS: Glucose Urine UA NEG (NEG); Leukocyte Esterase Urine 2+ (NEG); Nitrite Urine NEG (NEG); PH 7.5 (5.0-8.0); UACC Culture Trigger YES; Urine Blood NEG (NEG); Urine Ketones NEG (NEG); Urine Protein NEG (NEG-TRACE)
[2021-05-25 06:42] LABS: Anion Gap 14 (12-20); Blood Urea Nitrogen 7 mg/dL (9-16); Calcium 9.3 mg/dL (8.4-10.2); Carbon Dioxide 26 mmol/L (22-29); Chloride 104 mmol/L (96-108); Creatinine Clr Calc Pharmacy 102.4; Estimated Glomerular Filt Rate > 60; Glucose Random 199 mg/dL (60-115); Potassium 3.7 mmol/L (3.3-5.1); Sodium 140 mmol/L (135-145)
[2021-05-25 06:46] LABS: Appearance Urine HAZY; Color Urine YELLOW
[2021-05-25 06:56] LABS: RBC Urine 0-2 /HPF (0); Squamous Epithelial Cell Urine 1+ /LPF; WBC Urine 30-49 /HPF (0-4)
[2021-05-25 07:16] VITALS: BP 135/79; PULSE 70; RESP 20; TEMP 36.7; O2SAT 97
[2021-05-25 07:48] LABS: Glucose, Whole Blood 198 mg/dL (60-115)
[2021-05-25 07:55] LABS: Alanine Aminotransferase 45 U/L (0-31); Albumin Level 3.9 g/dL (3.5-5.0); Alkaline Phosphatase 136 U/L (39-117); Aspartate Amino Transferase 45 U/L (5-31); Bilirubin Direct 0.2 mg/dL (0.0-0.5); Bilirubin Total 0.5 mg/dL (0.0-1.0); Total Protein 6.6 g/dL (6.5-8.0)
[2021-05-25] MEDS: Propranolol HCL 20 MG TABLET PO (08:16)
[2021-05-25] MEDS: DULoxetine HCl 60 MG CAPSULE.DR PO (08:16)
[2021-05-25] MEDS: buPROPion HCl XL 300 MG TAB.ER.24H PO (08:16)
[2021-05-25] MEDS: Omeprazole 40 MG CAPSULE.DR PO (08:16)
[2021-05-25] MEDS: Loratadine 10 MG TABLET PO (08:16)
[2021-05-25] MEDS: buPROPion HCl XL 150 MG TAB.ER.24H PO (08:16)
[2021-05-25] MEDS: Insulin Lispro 100 UNIT/ML 3 ML VIAL SUBCUT (08:17)
[2021-05-25] MEDS: 0.9 % Sodium Chloride Flush 3 ML SYRINGE IVFLUSH (08:17)
[2021-05-25] MEDS: Acetaminophen 325 MG TABLET 650 MG PO (08:26)
--- NOTE | 2021-05-25 10:10 | P.DS_ITS ---
DS: Providers Provider Date of Service: 05/25/21 Date of admission: 05/24/21 00:47 Primary care physician: Unknown Physician Consults: 05/24/21 00:54 Consult to Gastroenterology Routine Consulting Provider: Cj Liao Reason for consultation: severe abd pain, hepatosplenomegaly Has provider been notified: No 05/24/21 08:47 Consult to General Surgery Routine Consulting Provider: Sadiq Cage Reason for consultation: ?hepatic pneumatosis Has provider been notified: No DS: Diagnosis Discharge Diagnosis (1) Abdominal pain: Status: Acute (2) Hepatosplenomegaly: Status: Acute (3) Esophagitis: Status: Acute DS: Medications Discharge Medications Home Medications: Home Medications Medication Instructions Recorded Confirmed albuterol sulfate 90 mcg/actuation 2 puff INHALATION QID PRN 10/06/20 05/24/21 aerosol inhaler (ProAir HFA) bupropion HCl 150 mg 24 hr tablet, 150 mg PO DAILY 10/06/20 05/24/21 extended release (Wellbutrin XL) bupropion HCl 300 mg 24 hr tablet, 300 mg PO DAILY 10/06/20 05/24/21 extended release (Wellbutrin XL) cetirizine 10 mg tablet (Zyrtec) 10 mg PO DAILY 10/06/20 05/24/21 duloxetine 60 mg capsule,delayed 60 mg PO DAILY 10/06/20 05/24/21 release (Cymbalta) glimepiride 1 mg tablet 1 mg PO DAILY 10/06/20 05/24/21 insulin glargine 100 unit/mL 20 unit SUBCUT BEDTIME 10/06/20 05/24/21 subcutaneous solution (Lantus U-100 Insulin) mirtazapine 45 mg tablet 45 mg PO BEDTIME PRN 10/06/20 05/24/21 montelukast 10 mg tablet 10 mg PO BEDTIME 10/06/20 05/24/21 (Singulair) prazosin 1 mg capsule 1 mg PO BEDTIME 10/06/20 05/24/21 ropinirole 1 mg tablet 1 mg PO BEDTIME 10/06/20 05/24/21 tiotropium bromide 18 mcg capsule 1 cap INHALATION DAILY 10/06/20 05/24/21 with inhalation device (Spiriva with HandiHaler) fenofibrate micronized 134 mg 1 tab PO QPM 05/24/21 05/24/21 capsule fluticasone propionate 50 2 spray INTRANASAL DAILY 05/24/21 05/24/21 mcg/actuation nasal spray,suspension lisinopril 2.5 mg tablet 1 tab PO QAM 05/24/21 05/24/21 oxycodone-acetaminophen 5 mg-325 1 tab PO Q8H PRN 05/24/21 05/24/21 mg tablet topiramate 50 mg tablet 1 tab PO BEDTIME 05/24/21 05/24/21 Previous Rx's Medication Instructions Recorded propranolol 20 mg tablet 20 mg PO BID #60 tab 10/07/20 omeprazole 20 mg capsule,delayed 20 mg PO QAM #30 cap 04/04/21 release DS: Summary Hospital Course Hospital Course: From H&P on day of admission 50-year-old female Lebanese-speaking only who presents to the hospital with complaints of abdominal pain.? Patient has history of asthma, COPD, diabetes, HLD, HTN, migraine headaches who presents stating that she developed abdominal pain since Friday, the abdominal pain is localized to the mid abdomen radiating across the abdomen to the back, pain is 10/10, constant, worsened over the last few days, not relieved with her home medications of Oxy or Tylenol.? No worsening or exacerbating factors.? not associated with any nausea or vomiting, not associated with any diarrhea or constipation.? Denies any urinary symptoms, no fever or chills, no chest pain no shortness of breath, no lower extremity edema.? No numbness tingling weakness. No significant abnormal vitals on arrival Labs are significant for WBC count of 7.8 glucose of 351, UA that is positive for leukocyte esterase and some WBC otherwise unremarkable. CT of the abdomen showed probable hepatic pneumatosis/liver disease due to decreased attenuation.? Patient also has increased hepatosplenomegaly. Patient received multiple doses of IV pain medication with no relief of her symptoms.? Therefore she will be admitted for intractable pain. Case was discussed with surgical attending, does not feel like patient needs any further intervention for her in the ptosis but recommended evaluation by GI for hepatosplenomegaly Past medical history is reviewed below and confirmed with patient review of system otherwise negative Discharge diagnosis Abdominal Pain Esophagitis Hepatic steatosis Hepatosplenomegaly Abdominal pain CT scan of the abdomen showed possible hepatic pneumatosis. She was evaluated by General surgery who did not feel that there was any indication for surgical intervention. She was evaluated by GI who did not feel that there was any pneumatosis on imaging. She underwent EGD which showed evidence of esophagitis and possible gastroparesis. Her dose of Prilosec was increased to 40 mg b.i.d. She had US of the abdomen which showed hepatic steatosis and is chronic. Likely related to PRADO. She had mild elevation of liver transaminases which is also chronic. This morning, the patient's pain has completely resolved and she requested full diet. She was able to tolerate diet without abdominal pain and is stable for discharge. If she continues to have pain should consider outpatient gastric emptying study. Patient is encouraged to schedule follow-up appointment with GI. UTI patient was treated with IV ceftriaxone which will be transition to oral cefuroxime on discharge. Time Spent with Patient Time attestation: Total time spent providing and/or coordinating discharge services: Discharge coordination time: Greater than 30 minutes Quality: Stroke Does the patient have a stroke diagnosis?: No Physical Exam Vital Signs: Vital Signs: Last Vital Signs Temp 98.1 F 05/25/21 07:16 Pulse 70 05/25/21 07:16 Resp 20 05/25/21 07:16 BP 135/79 05/25/21 07:16 Pulse Ox 97 05/25/21 07:16 Body Mass Index 34.1 Const: Nutritional Appearance: well nourished Orientation/consciousness: patient oriented x3 HENMT: Head: Yes normocephalic and Yes atraumatic Eyes: Sclerae: sclerae normal Resp: Effort & Inspection: normal respiratory effort and no respiratory distr ess Cardio: Rate: regular rate Rhythm: regular rhythm GI: Palpation (GI): Soft to palpation and nontender Neuro: General: patient oriented x3 Cranial nerves: Yes CN's II-XII intact bilaterally and Yes Bilaterally intact EOM present DS: Data Data Completed and Pending Pending studies at discharge: Pending at discharge 05/24/21 12:45 Surgical [PTH] Routine Labs on day of discharge: Laboratory Results - last 24 hr 05/24/21 05/24/21 05/25/21 16:06 20:08 05:29 WBC 5.6 RBC 4.16 L Hgb 12.7 Hct 36.2 L MCV 87.0 MCH 30.5 MCHC 35.1 H RDW 12.2 Plt Count 240 MPV 10.7 Immature Gran % (Auto) 0.2 Neut % (Auto) 62.3 Lymph % (Auto) 28.9 [place] % (Auto) 5.7 Eos % (Auto) 2.5 Baso % (Auto) 0.4 Lymph # (Auto) 1.6 [place] # (Auto) 0.3 Eos # (Auto) 0.1 Baso # (Auto) 0.0 Abs Immat Gran (auto) 0.01 Absolute Neuts (auto) 3.5 Absolute Nucleated RBC 0.000 Nucleated RBC % (auto) 0.0 Sodium Potassium Chloride Carbon Dioxide Anion Gap BUN Creatinine Estim Creat Clear Calc Estimated GFR POC Glucose 192 H 140 H Random Glucose Calcium Total Bilirubin Direct Bilirubin AST ALT Alkaline Phosphatase Total Protein Albumin Urine Color Urine Appearance Urine pH Ur Specific [place] Urine Protein Urine Glucose (UA) Urine Ketones Urine Blood Urine Nitrite Ur Leukocyte Esterase Urine RBC Urine WBC Ur Squamous Epith Cells Urine Bacteria 05/25/21 05/25/21 05/25/21 05:29 06:28 07:18 WBC RBC Hgb Hct MCV MCH MCHC RDW Plt Count MPV Immature Gran % (Auto) Neut % (Auto) Lymph % (Auto) [place] % (Auto) Eos % (Auto) Baso % (Auto) Lymph # (Auto) [place] # (Auto) Eos # (Auto) Baso # (Auto) Abs Immat Gran (auto) Absolute Neuts (auto) Absolute Nucleated RBC Nucleated RBC % (auto) Sodium 140 Potassium 3.7 Chloride 104 Carbon Dioxide 26 Anion Gap 14 BUN 7 L D Creatinine 0.74 Estim Creat Clear Calc 102.4 Estimated GFR > 60 POC Glucose 198 H Random Glucose 199 H D Calcium 9.3 Total Bilirubin 0.5 Direct Bilirubin 0.2 AST 45 H D ALT 45 H Alkaline Phosphatase 136 H Total Protein 6.6 Albumin 3.9 Urine Color YELLOW Urine Appearance HAZY Urine pH 7.5 Ur Specific [place] 1.010 Urine Protein NEG Urine Glucose (UA) NEG Urine Ketones NEG Urine Blood NEG Urine Nitrite NEG Ur Leukocyte Esterase 2+ H Urine RBC 0-2 Urine WBC 30-49 H Ur Squamous Epith Cells 1+ Urine Bacteria NONE Preliminary micro results at discharge 05/24/21 00:41 Blood Culture - Preliminary Blood - Venous No growth after 24 hours. 05/24/21 00:41 Blood Culture - Preliminary Blood - Venous No growth after 24 hours. Discharge Plan Discharge Patient Disposition: Home, Self-Care Discharge Diagnosis: Abdominal Pain Esophagitis hepatic steatosis Referrals: Cj Liao MD [Physician] - 1 Week Discharge Medications: New cefuroxime axetil 250 mg tablet 250 mg PO BID 3 Days Qty: 6 RF: 0 Continued ropinirole 1 mg Tablet 1 mg PO BEDTIME RF: 0 Lantus U-100 Insulin 100 unit/mL Solution 20 unit SUBCUT BEDTIME RF: 0 cetirizine [Zyrtec] 10 mg Tablet 10 mg PO DAILY RF: 0 prazosin 1 mg Capsule 1 mg PO BEDTIME RF: 0 glimepiride 1 mg Tablet 1 mg PO DAILY RF: 0 mirtazapine 45 mg Tablet 45 mg PO BEDTIME PRN (Reason: Insomnia) RF: 0 montelukast [Singulair] 10 mg Tablet 10 mg PO BEDTIME RF: 0 albuterol sulfate [ProAir HFA] 90 mcg/actuation Hfa Aerosol Inhaler 2 puff INHALATION QID PRN (Reason: Shortness Of Breath) RF: 0 bupropion HCl [Wellbutrin XL] 300 mg Tablet Extended Release 24 Hr 300 mg PO DAILY RF: 0 bupropion HCl [Wellbutrin XL] 150 mg Tablet Extended Release 24 Hr 150 mg PO DAILY RF: 0 Spiriva with HandiHaler 18 mcg Capsule, W/Inhalation Device 1 cap INHALATION DAILY RF: 0 duloxetine [Cymbalta] 60 mg Capsule,Delayed Release(Dr/Ec) 60 mg PO DAILY RF: 0 propranolol 20 mg tablet 20 mg PO BID Qty: 60 RF: 0 fenofibrate micronized 134 mg capsule 1 tab PO QPM RF: 0 oxycodone-acetaminophen 5-325 mg tablet 1 tab PO Q8H PRN (Reason: pain) RF: 0 fluticasone propionate 50 mcg/actuation spray,suspension 2 spray intranasal DAILY RF: 0 lisinopril 2.5 mg tablet 1 tab PO QAM RF: 0 topiramate 50 mg tablet 1 tab PO BEDTIME RF: 0 Changed omeprazole 20 mg capsule,delayed release(DR/EC) 40 mg PO BID Qty: 30 RF: 3 Activity on Discharge: As tolerated Stand Alone Forms: Patient Portal Discharge page Care Plan Goals: see below Health Concerns: abdominal pain esophagitis Hepatic steatosis UTI Plan of Treatment: Esophagitis - dose of prilosec has been increased to 40 mg twice daily Call to schedule follow-up appointment with GI UTI - finish course of antibiotics Assessment: see discharge summary
[2021-05-25] MEDS: Fluticasone Propionate Nasal 16 GM SPRAY 2 SPRAY NOSTRIL-B (10:35)
[2021-05-25 10:47] VITALS: BP 159/86; PULSE 74; RESP 19; TEMP 36.7; O2SAT 98
--- NOTE | 2021-05-25 11:01 | MHC.CM.PN ---
pt dcd home no servceis ordered by
[2021-05-25 11:15] LABS: Glucose, Whole Blood 189 mg/dL (60-115)
--- NOTE | 2021-05-25 11:20 | MHC.CM.PN ---
TORI 05/25/21 Female 50 DX AB pain. Lives alone. Uses a cane. [facility] providing [facility] services. DP home with resumption of [facility]. Family providing transportation.
--- NOTE | 2021-05-25 11:22 | MHC.CM.PN ---
Female 50 DX AB PAIN is discharged to home today. [facility] to resume services. Family providing transportation.
--- NOTE | 2021-05-25 13:49 | HO.POSTANES ---
Post Anesthesia Evaluation Post Anesthesia Evaluation Vital Signs: Vital Signs Temp Pulse Resp BP Pulse Ox 05/25/21 10:47 98.0 F 74 19 159/86 H 98 05/25/21 07:16 98.1 F 70 20 135/79 97 05/25/21 04:00 98.1 F 79 18 136/89 98 Anesthesia: Monitored Mental Status: Awake Pain Control: Satisfactory Nausea/Vomiting: None Hydration: Adequate Anesthesia-Related Issues: No Anes. Related Issues
== END 2021-05-25 11:26 | disposition home or self-care (01) ==
LOC: HO.ED 05-24 00:42 → HO.EDOVER 05-24 01:06 → HO.IMC 05-24 10:45
PROVIDERS: Internal Medicine Gastroenterology; Physician Assistant; Physician Assistant Medical; Admitting Provider Internal Medicine; Emergency Provider Emergency Medicine; PCP Internal Medicine; Visit Provider Family Medicine
PROC: 0DJ08ZZ Inspection of Upper Intestinal Tract, Via Natural or Artificial Opening Endoscopic (ICD-10-PCS; CPT 43235; principal; 2021-05-24 14:40)
DX: R10.11 Right upper quadrant pain (principal); R10.13 Epigastric pain; N39.0 Urinary tract infection, site not specified; R16.2 Hepatomegaly with splenomegaly, not elsewhere classified; R74.01 Elevation of levels of liver transaminase levels; K20.90 Esophagitis, unspecified without bleeding; E11.9 Type 2 diabetes mellitus without complications; E78.5 Hyperlipidemia, unspecified; I10 Essential (primary) hypertension; J44.9 Chronic obstructive pulmonary disease, unspecified; G43.909 Migraine, unspecified, not intractable, without status migrainosus; F17.210 Nicotine dependence, cigarettes, uncomplicated; Z20.822 Contact with and (suspected) exposure to COVID-19; Z90.710 Acquired absence of both cervix and uterus; Z79.4 Long term (current) use of insulin; Z79.899 Other long term (current) drug therapy
CPT/HCPCS: 43239; 36415; 74177; 76700; 80048; 80053; 80076; 81001; 82947; 83605; 83690; 83735; 85025; 87040; 87086; 87147; 87635; 88305; 88342; 96361; 96365; 96375; 96376; 99219; 99285; J0696; J1885; J2270; J2405; J2543; Q9967

== ENCOUNTER → 2021-06-01 09:19 | Outpatient (BNVA) | payer MEDICAID, SELFPAY | PROVIDERS: Referring Provider Internal Medicine; Visit Provider Internal Medicine Gastroenterology | DX: R68.81 Early satiety (principal) | CPT/HCPCS: 99212 ==

== ENCOUNTER 2021-07-09 09:47 | Outpatient (REF) | payer MEDICAID, SELFPAY ==
--- NOTE | ~2021-07-09 | MR_ITS ---
EXAMINATION: MR THORACIC SPINE WITHOUT CONTRAST CLINICAL INFORMATION: Cerebral cyst. Pain in thoracic spine. Self-reported back pain and abdominal pain with no injury. Self-reported pain for 10 years in left leg pain. History of lumbosacral surgery at L3-L4. Self-reported left leg pain. COMPARISON: MRI brain 10/06/2020, CT abdomen and pelvis 05/23/2021. Abdominal ultrasound 05/24/2021. CT lumbar spine 10/17/2018. CT angiography chest 04/02/2019. TECHNIQUE: MRI of the thoracic spine was obtained using routine sequences without contrast. FINDINGS: VERTEBRAL BODIES AND PARASPINAL STRUCTURES: Vertebral body height and alignment are normal in appearance. No vertebral body compression deformities are identified. At the level of T7-T8, a 4 mm rounded T2 hyperintensity is present at the right lateral aspect of the right neural foramen. This finding corresponds to an unchanged size focus with intermediate low density (23 Hounsfield unit) on the comparison CT of the chest from 04/02/2019 (series 6 image 228). This finding demonstrates low T1-weighted signal intensity (series 4 image 11-12). The T8 vertebral body demonstrates a 6 mm diameter focus with intrinsic high T1-weighted signal intensity likely representing a hemangioma. The T12 vertebral body demonstrates a 4 mm T1 hyperintensity along the posterior aspect of the superior endplate which may represent a hemangioma or minimal discogenic endplate changes though no specific intervertebral disc spondylosis is noted in this region. The L1 vertebral body demonstrates a minimal superior endplate Schmorl's node deformity, unchanged compared with 04/02/2019. Minimal multilevel anterior endplate osteophytosis of the thoracic spine is noted with findings most pronounced at T8-T9, unchanged appreciably compared with 04/02/2019. SPINAL CORD AND CENTRAL CANAL: Between the levels of the mid-body of T4 and mid-body of T5, the spinal cord demonstrates ventral displacement and AP deformation. No extradural transgression of the spinal cord is noted in this region. No syrinx or spinal cord signal abnormality is associated with these findings. Close scrutiny of expected pulsatile flow related intra-Voxel dephasing within the central canal of the thoracic spine suggests absent flow pulsatility within the central canal along the dorsal margin of the spinal cord in this same region suggesting a dorsal spinal arachnoid cyst with approximate dimensions of 2.5 cm x 1.0 cm x 0.6 cm (SI x lateral x AP) as suggested on series 3 image 8, series 6 image 21-29. CSF signal intensity in this region is brighter than CSF signal intensity elsewhere in the adjacent thoracic spine suggesting the absence of normal CSF pulsation/flow. Focal deformity of the dorsal margin of the spinal cord to suggest a scalpel sinus may be seen in the setting of a dorsal thoracic arachnoid web is not identified. At the level of T4-T5, the spinal cord demonstrates maximum AP deformation resulting in AP dimension of 3 mm with no CSF noted along the ventral margin of the spinal cord. The conus medullaris terminates at the level of L1. The conus medullaris is normal in appearance. SPINAL LEVELS: C6-C7: Partially visualized mild left parasagittal disc protrusion without associated direct spinal cord impingement resulting in mild central stenosis. C7-T1: Normal. T1-T2: Normal intervertebral discs. No central or foraminal stenoses. T2-T3: Minimal central disc protrusion. T3-T4: Normal intervertebral disc. T4-T5: Minimal posterior broad-based disc bulge. T5-T6: Normal intervertebral disc. T6-T7: Normal intervertebral disc. T7-T8: Minimal anterior broad-based disc-osteophyte complex. No central or foraminal stenoses. T8-T9: Mild anterior broad-based disc-osteophyte complex. Normal posterior margin of the intervertebral discs. No central or foraminal stenoses. T9-T10: Normal. T10-T11: Normal. T11-T12: Normal intervertebral discs. No central foraminal stenoses. T12-L1: Normal. MR/MR thoracic spine wo con IMPRESSION: 1. Abnormal configuration of the thoracic spinal cord between the mid-body of T4 and the mid-body of T5. Findings are suspicious for an intradural dorsal spinal arachnoid cyst measuring approximately 2.5 cm x 1.0 cm x 0.6 cm (SI x lateral x AP). The spinal cord demonstrates dorsal displacement and AP deformation in this region. No syrinx or spinal cord signal abnormality is associated with this finding. The differential diagnosis includes ventral herniation of the spinal cord and a dorsal thoracic arachnoid web. No extradural extension of the spinal cord is noted to suggest the former entity. No focal angulation of the dorsal margin of the thoracic spine is identified to specifically suggest the latter entity. However, a dorsal thoracic arachnoid web and dorsal arachnoid cyst may present with similar findings on unenhanced MRI of the thoracic spine. As clinically indicated, consider further evaluation with CT myelography which may better demarcate the presence of a dorsal arachnoid cyst. 2. Minimal multilevel chronic spondylosis of the thoracic spine without resulting significant central or foraminal stenoses. 3. Single 4 mm rounded lesion within the lateral aspect of the right neural foramen of T7-T8. This finding is suspicious for an incidental perineural sheath cyst. A small schwannoma could have a similar appearance though the low T1-weighted signal intensity of this focus is most suspicious for a cyst. As clinically indicated, this finding could be further evaluated with contrast-enhanced MRI of the thoracic spine.
== END 2021-07-09 09:48 | disposition home or self-care (01) ==
LOC: HO.MRI 09:47
PROVIDERS: PCP Internal Medicine; Visit Provider Internal Medicine
DX: G89.29 Other chronic pain (principal); G93.0 Cerebral cysts; G95.20 Unspecified cord compression; M54.6 Pain in thoracic spine
CPT/HCPCS: 72146

== ENCOUNTER 2021-07-11 07:56 | Day surgery (SDC) | payer MEDICAID, SELFPAY ==
--- NOTE | 2021-07-10 10:56 | P.CONAN_ITS ---
Documented by User: Nataly Rush NP 07/10/21 10:59 HPI - Anesthesia Eval Consult details Narrative: 51yo F for Colonoscopy s/p EGD with TIVA 04/2021 [facility] Active Problems Active Problems: All Active Problems (Updated 06/02/21 @ 00:02 by Background Daemon) Esophagitis (Acute) Hepatosplenomegaly (Acute) Hemiplegic migraine (Acute) Complicated migraine (Acute) GERD (gastroesophageal reflux disease) (Acute) Constipation (Acute) Acute headache (Acute) Acute hyperglycemia (Acute) Past Medical History Medical History (Updated 06/02/21 @ 00:02 by Background Daemon) Asthma COPD (chronic obstructive pulmonary disease) Diabetes Hemiplegic migraine HLD (hyperlipidemia) HTN (hypertension) Migraines Sciatica Family History Family History Sister Migraine Surgical History Surgical History (Updated 06/01/21 @ 09:52 by ARINA Kwon) H/O: hysterectomy History of ear surgery History of esophagogastroduodenoscopy (EGD) Hx laparoscopic cholecystectomy History of Problems with Anesthesia: No Social History Social History (Updated 06/01/21 @ 09:52 by ARINA Kwon) Household Members: None Housing: Apartment Do you presently have visiting nurse or other home services: No Alcohol intake: never Patient Tobacco Use Status: Current everyday Tobacco user Tobacco use type: Cigarette Cigarette Packs Per Day: 0.4 Cigarettes Per Day: 10 Years Smoked: 20 Smoked in Last 30 Days: Yes Second Hand Smoke Exposure: Yes Use of substances other than those prescribed or required for medical reasons: No Are you DNR?: No Advance Directives: No Advance Directives Information Provided: Yes service: No Current occupational status: other Meds Allergies Allergy/AdvReac Type Severity Reaction Status Date / Time ENVIRONMENTAL Allergy Unknown HAYFEVER Uncoded 05/23/21 19:10 Pt states no food/medication Allergy Unknown Unknown Uncoded 05/23/21 19:10 a Home Medications Medication Instructions Recorded Confirmed Last Taken Type albuterol sulfate 90 mcg/actuation 2 puff INHALATION QID PRN 10/06/20 07/06/21 10/06/20 History aerosol inhaler (ProAir HFA) bupropion HCl 150 mg 24 hr tablet, 150 mg PO DAILY 10/06/20 07/06/21 07/11/21 07:30 History extended release (Wellbutrin XL) bupropion HCl 300 mg 24 hr tablet, 300 mg PO DAILY 10/06/20 07/06/21 07/11/21 07:30 History extended release (Wellbutrin XL) cetirizine 10 mg tablet (Zyrtec) 10 mg PO DAILY 10/06/20 07/06/21 10/06/20 History duloxetine 60 mg capsule,delayed 60 mg PO DAILY 10/06/20 07/06/21 10/06/20 History release (Cymbalta) glimepiride 1 mg tablet 1 mg PO DAILY 10/06/20 07/06/21 10/06/20 History insulin glargine 100 unit/mL 20 unit SUBCUT BEDTIME 10/06/20 07/11/21 07/10/21 09:00 History subcutaneous solution (Lantus 10 units U-100 Insulin) mirtazapine 45 mg tablet 45 mg PO BEDTIME PRN 10/06/20 07/06/21 Unknown History montelukast 10 mg tablet 10 mg PO BEDTIME 10/06/20 07/06/21 10/05/20 History (Singulair) prazosin 1 mg capsule 1 mg PO BEDTIME 10/06/20 07/06/21 10/05/20 History ropinirole 1 mg tablet 1 mg PO BEDTIME 10/06/20 07/06/21 10/05/20 History tiotropium bromide 18 mcg capsule 1 cap INHALATION DAILY 10/06/20 07/06/21 10/06/20 History with inhalation device (Spiriva with HandiHaler) fenofibrate micronized 134 mg 1 tab PO QPM 05/24/21 07/06/21 Unknown History capsule fluticasone propionate 50 2 spray INTRANASAL DAILY 05/24/21 07/06/21 Unknown History mcg/actuation nasal spray,suspension lisinopril 2.5 mg tablet 1 tab PO QAM 05/24/21 07/06/21 Unknown History oxycodone-acetaminophen 5 mg-325 1 tab PO Q8H PRN 05/24/21 07/06/21 Unknown History mg tablet topiramate 50 mg tablet 1 tab PO BEDTIME 05/24/21 07/06/21 Unknown History Exam Exam Date and Time: July 10, 2021 1057 Pertinent Lab Results Pertinent Lab Results: Laboratory Tests 05/25/21 05/25/21 05:29 05:29 WBC 5.6 Hgb 12.7 Hct 36.2 L Plt Count 240 Sodium 140 Potassium 3.7 Chloride 104 Carbon Dioxide 26 BUN 7 L D Creatinine 0.74 Narrative Narrative: EKG 09/2020 Vent. Rate : 075 BPM ? ? Atrial Rate : 075 BPM ?? P-R Int : 134 ms? QRS Dur : 084 ms ? ? QT Int : 420 ms ? ? ? P-R-T Axes : 038 069 029 degrees ?? QTc Int : 469 ms ? Normal sinus rhythm Normal ECG Compared to EKG of 16 Mar 2020 at 12:25:30 No significant changes seen Assessment and Plan Assessment Anesthesia Assessment: Chart Reviewed Final Anesthetic Review History of Problems with Anesthesia: No Documented by User: Lorie Kumar MD 07/11/21 09:33 [facility] Past Medical History Medical History (Updated 06/02/21 @ 00:02 by Ban Quevedo) Asthma COPD (chronic obstructive pulmonary disease) Diabetes Hemiplegic migraine HLD (hyperlipidemia) HTN (hypertension) Migraines Sciatica Family History Family History Sister Migraine Family history of problems with anesthesia: No Surgical History Surgical History (Updated 06/01/21 @ 09:52 by ARINA Kwon) H/O: hysterectomy History of ear surgery History of esophagogastroduodenoscopy (EGD) Hx laparoscopic cholecystectomy Social History Social History (Updated 06/01/21 @ 09:52 by ARINA Kwon) Household Members: None Housing: Apartment Do you presently have visiting nurse or other home services: No Alcohol intake: never Patient Tobacco Use Status: Current everyday Tobacco user Tobacco use type: Cigarette Cigarette Packs Per Day: 0.4 Cigarettes Per Day: 10 Years Smoked: 20 Smoked in Last 30 Days: Yes Second Hand Smoke Exposure: Yes Use of substances other than those prescribed or required for medical reasons: No Are you DNR?: No Advance Directives: No Advance Directives Information Provided: Yes service: No Current occupational status: other Meds Allergies Allergy/AdvReac Type Severity Reaction Status Date / Time ENVIRONMENTAL Allergy Unknown HAYFEVER Uncoded 05/23/21 19:10 Pt states no food/medication Allergy Unknown Unknown Uncoded 05/23/21 19:10 a Home Medications Medication Instructions Recorded Confirmed Last Taken Type albuterol sulfate 90 mcg/actuation 2 puff INHALATION QID PRN 10/06/20 07/06/21 10/06/20 History aerosol inhaler (ProAir HFA) bupropion HCl 150 mg 24 hr tablet, 150 mg PO DAILY 10/06/20 07/06/21 07/11/21 07:30 History extended release (Wellbutrin XL) bupropion HCl 300 mg 24 hr tablet, 300 mg PO DAILY 10/06/20 07/06/21 07/11/21 07:30 History extended release (Wellbutrin XL) cetirizine 10 mg tablet (Zyrtec) 10 mg PO DAILY 10/06/20 07/06/21 10/06/20 History duloxetine 60 mg capsule,delayed 60 mg PO DAILY 10/06/20 07/06/21 10/06/20 History release (Cymbalta) glimepiride 1 mg tablet 1 mg PO DAILY 10/06/20 07/06/21 10/06/20 History insulin glargine 100 unit/mL 20 unit SUBCUT BEDTIME 10/06/20 07/11/21 07/10/21 09:00 History subcutaneous solution (Lantus 10 units U-100 Insulin) mirtazapine 45 mg tablet 45 mg PO BEDTIME PRN 10/06/20 07/06/21 Unknown History montelukast 10 mg tablet 10 mg PO BEDTIME 10/06/20 07/06/21 10/05/20 History (Singulair) prazosin 1 mg capsule 1 mg PO BEDTIME 10/06/20 07/06/21 10/05/20 History ropinirole 1 mg tablet 1 mg PO BEDTIME 10/06/20 07/06/21 10/05/20 History tiotropium bromide 18 mcg capsule 1 cap INHALATION DAILY 10/06/20 07/06/21 10/06/20 History with inhalation device (Spiriva with HandiHaler) fenofibrate micronized 134 mg 1 tab PO QPM 05/24/21 07/06/21 Unknown History capsule fluticasone propionate 50 2 spray INTRANASAL DAILY 05/24/21 07/06/21 Unknown History mcg/actuation nasal spray,suspension lisinopril 2.5 mg tablet 1 tab PO QAM 05/24/21 07/06/21 Unknown History oxycodone-acetaminophen 5 mg-325 1 tab PO Q8H PRN 05/24/21 07/06/21 Unknown History mg tablet topiramate 50 mg tablet 1 tab PO BEDTIME 05/24/21 07/06/21 Unknown History Exam Airway Mallampati Class: II (Missing multiple nothing loose) TM Dist: >3cm Neck ROM: Full Heart: rrr Lungs: cta Assessment and Plan Assessment Anesthesia Assessment: Anesthesia Plan Discussed and Chart Reviewed Final Anesthetic Review Family History of Problems with Anesthesia: No NPO: Yes ASA Class: III Final Preanesthetic Review: No Changes in Pt Med Stat, Meds/Allgs Chart Reviewed and Consent Obtained/Reviewed Patient Risk: Intermediate Procedure Risk: Intermediate Anesthetic Plan Anesthetic Plan: MAC: Disposition: Standard PACU
[2021-07-11 08:45] VITALS: BP 134/79; PULSE 73; RESP 16; TEMP 36.8; O2SAT 96; BMI 34.4
[2021-07-11 09:01] LABS: Glucose, Whole Blood 229 mg/dL (60-115)
--- NOTE | 2021-07-11 09:06 | MHC.SHP ---
Pre-Procedural Eval Section A Date of Service: 07/11/21 Section B Chief Complaint: Screening Relevant Family History (Specify if Yes): No Relevant Social History: Tobacco Use Present Medications: see Short Stay Collaborative assessment Medical History: Significant History (Asthma COPD (chronic obstructive pulmonary disease) Diabetes Hemiplegic migraine HLD (hyperlipidemia) HTN (hypertension) Migraines Sciatica) History of Previous Operations: Relevant previous surgery/procedure and date(s) (H/O: hysterectomy History of ear surgery History of esophagogastroduodenoscopy (EGD) Hx laparoscopic cholecystectomy) Allergies: Allergies Allergy/AdvReac Type Severity Reaction Status Date / Time ENVIRONMENTAL Allergy Unknown HAYFEVER Uncoded 05/23/21 19:10 Pt states no food/medication Allergy Unknown Unknown Uncoded 05/23/21 19:10 a Review of Systems Sugical H&P ROS: Negative: Constitution, Cardiovascular, Respiratory, Neurological, Psychiatric, Hem-Onc, Allergic/Immunologic, Gastrointestinal, Genitourinary, Musculoskeletal, Integumentary, Endocrine and Eyes/Ears/Nose/Throat Exam Surgical H&P Exam: Normal: HEENT, Normal: Heart, Normal: Lungs, Normal: Extremities, Normal: Abdomen, Normal: Skin and Normal: Neurological Plan Diagnosis/Plan: Unchanged I have reviewed the history and physical and performed a pertinent physical examination on my patient. No changes have occurred unless specified.
[2021-07-11] MEDS: Lactated Ringers 1,000 ML 100 ML IVCONT (09:28)
--- NOTE | 2021-07-11 09:41 | PM.OP ---
Brief Operative Note Date of Service: 07/11/21 Pre-op diagnosis: screening Post-op diagnosis: same Procedure: see op note Surgeon: Cj Liao MD Anesthesia: MAC Was an Insurance And Financial Services Agent used for this Procedure?: No Estimated blood loss (mL): 0 Condition: stable Disposition: PACU
--- NOTE | 2021-07-11 09:42 | W.PM.OPN ---
Operative Note Operative Note Date of Service: 07/11/21 Narrative: Operative Information Procedure Description: Colonoscopy COLONOSCOPY Instrument: Olympus variable stiffness pediatric scope 190L Colonoscopy Monitoring: Vital signs and clinical assessment, continuous EKG monitoring, Pulse oximetry, Carbon Dioxide monitoring and blood pressure monitoring were done throughout the procedure. Colon withdrawal time was [] minutes. Procedure: The patient was placed in the left lateral decubitis position and pre-procedure medications were administered. After a digital rectal examination of the ano-rectum, the video colonoscope was inserted into the rectum and advanced through the colon to the cecum/TI. The colonoscope was slowly withdrawn in a retrograde panoramic fashion and the colon mucosa was carefully examined including a retroflexed view of the rectum. Findings and interventions are described below. Procedure Difficulty:easy Findings: Terminal Ileum-normal Cecum:normal Ascending Colon: x 3 sessile polyps measuring 8-10 mm noted. x 2 removed with cold snare and x 1 with forceps Transverse Colon -normal Descending Colon:normal Sigmoid Colon: normal Rectum: Retroflexion with small internal hemorrhoids, grade I, 8-10 mm sessile polyp removed with cold snare Anorectum - normal Colon preparation: Wolbach Bowel Preparation Scale Right colon; 2 Transverse colon: 2 Left colon; 2 (0 = Unprepared colon segment with mucosa not seen due to solid stool that cannot be cleared. 1 = Portion of mucosa of the colon segment seen, but other areas of the colon segment not well seen due to staining, residual stool and/or opaque liquid. 2 = Minor amount of residual staining, small fragments of stool and/or opaque liquid, but mucosa of colon segment seen well. 3 = Entire mucosa of colon segment seen well with no residual staining, small fragments of stool or opaque liquid) Impression and Post Procedure Diagnosis: polyps internal hemorrhoids Plan: High fiber diet leaflet Avoid straining at stool, epsom salts and sitz bath, anusol supps or cream Repeat Colonoscopy in 5 years due to polyps or earlier if clinically indicated Above findings were reviewed with the patient and relevant handouts were provided if indicated.
[2021-07-11 10:08] VITALS: BP 115/70; PULSE 74; RESP 16; TEMP 36.3; O2SAT 94
[2021-07-11 10:23] VITALS: BP 135/87; PULSE 68; RESP 18; TEMP 36.2; O2SAT 98
== END 2021-07-11 11:20 ==
LOC: HO.SSS 07:57
PROVIDERS: PCP Internal Medicine; Visit Provider Internal Medicine Gastroenterology
PROC: 0DJD8ZZ Inspection of Lower Intestinal Tract, Via Natural or Artificial Opening Endoscopic (ICD-10-PCS; CPT 45378; principal; 2021-07-11 09:30)
DX: Z12.11 Encounter for screening for malignant neoplasm of colon (principal); D12.4 Benign neoplasm of descending colon; K62.1 Rectal polyp; K64.0 First degree hemorrhoids; J44.9 Chronic obstructive pulmonary disease, unspecified; I10 Essential (primary) hypertension; E11.9 Type 2 diabetes mellitus without complications; G43.909 Migraine, unspecified, not intractable, without status migrainosus; F17.210 Nicotine dependence, cigarettes, uncomplicated; Z79.899 Other long term (current) drug therapy
CPT/HCPCS: 45385; 45380; 82947; 88305

== ENCOUNTER → 2021-08-24 09:27 | Outpatient (BNVA) | payer MEDICAID, SELFPAY | PROVIDERS: PCP Internal Medicine; Visit Provider Internal Medicine Gastroenterology ==

== ENCOUNTER 2021-10-22 12:12 | Outpatient (REF) | payer MEDICAID, SELFPAY ==
--- NOTE | ~2021-10-22 | XR_ITS ---
EXAMINATION: XR CHEST CLINICAL INFORMATION: Cough. COMPARISON: Chest radiograph dated 03/16/2020. TECHNIQUE: 2 views of the chest were obtained. FINDINGS: The trachea is in normal anatomic position. Heart size is normal. The lungs are clear. There is no pleural effusion. There is no pneumothorax. No acute osseous abnormality. XR/XR chest 2V IMPRESSION: No acute cardiopulmonary disease. Stable appearance of the heart and lungs.
== END 2021-10-22 12:13 | disposition home or self-care (01) ==
LOC: HO.XRAY 12:12
PROVIDERS: PCP Internal Medicine; Visit Provider Emergency Medicine
DX: R05.9 Cough, unspecified (principal)
CPT/HCPCS: 71046

== ENCOUNTER → 2021-11-16 08:03 | Outpatient (REF) | payer MEDICAID, SELFPAY ==
--- NOTE | ~2021-11-16 | NM_ITS ---
EXAMINATION: RADIONUCLIDE SOLID FOOD GASTRIC EMPTYING 4-HOUR STUDY CLINICAL INFORMATION: Early satiety. COMPARISON: No previous gastric emptying study is available for comparison. TECHNIQUE: A standard meal consisting of 4 oz of Egg Beaters brand equivalent tagged with 1 mCi Tc-99m Sulfur Colloid, 8 oz water and 2 slices of toast with jelly was administered orally to the patient. Images were obtained using a dual head gamma camera in the anterior and posterior projections over of the stomach immediately post ingestion and at hourly intervals up to 4 hours post ingestion. The anterior and posterior counts at each time interval were averaged using the geometric mean and expressed as percentage of the immediate post ingestion counts. FINDINGS: There is good visualization of activity in the stomach immediately post ingestion. As the study progresses, there is good clearance of activity from the stomach and visualization of progressively increasing small bowel activity. However, at the end of the study there is mild abnormal retention of activity in the stomach at 4 hours. Retention in the stomach at each time interval was: 1 hour 65% (normal 37%-90%) 2 hours 46% (normal 30%-60%) 3 hours 23% 4 hours 19% (normal 0%-10%) NM/NM gastric emptying study IMPRESSION: Abnormal study. There is mild abnormal retention of solid food in the stomach at 4 hours.
== END ==
LOC: HO.NUCMED 08:03
PROVIDERS: PCP Internal Medicine; Visit Provider Internal Medicine Gastroenterology
DX: R68.81 Early satiety (principal)
CPT/HCPCS: 78264; A9541

== ENCOUNTER → 2021-12-10 09:29 | Outpatient (BNVA) | payer MEDICAID, SELFPAY | PROVIDERS: PCP Internal Medicine; Referring Provider Internal Medicine; Visit Provider Internal Medicine Gastroenterology | DX: K31.84 Gastroparesis (principal); K59.00 Constipation, unspecified | CPT/HCPCS: 99212 ==

== ENCOUNTER 2022-02-05 07:26 | Outpatient (REF) | payer MEDICAID, SELFPAY ==
--- NOTE | ~2022-02-05 | XR_ITS ---
EXAMINATION: X-RAY LEFT KNEE X-RAY BILATERAL KNEES CLINICAL INFORMATION: Pain COMPARISON: None TECHNIQUE: AP bilateral knees one view. Left knee 2 views. FINDINGS: Left knee: Mild lateral compartment osteoarthritis, with joint space loss and marginal osteophytes. Marginal patellar spurring. No fracture or dislocation. No significant effusion. Right knee: Mild spurring in the lateral compartment. No acute findings. XR/XR knee standing BI IMPRESSION: Left knee: Mild lateral and patellofemoral compartment arthritis.
--- NOTE | ~2022-02-05 | XR_ITS ---
EXAMINATION: X-RAY LEFT KNEE X-RAY BILATERAL KNEES CLINICAL INFORMATION: Pain COMPARISON: None TECHNIQUE: AP bilateral knees one view. Left knee 2 views. FINDINGS: Left knee: Mild lateral compartment osteoarthritis, with joint space loss and marginal osteophytes. Marginal patellar spurring. No fracture or dislocation. No significant effusion. Right knee: Mild spurring in the lateral compartment. No acute findings. XR/XR knee LT 2V IMPRESSION: Left knee: Mild lateral and patellofemoral compartment arthritis.
== END 2022-02-05 07:27 | disposition home or self-care (01) ==
LOC: HO.HOSX 07:26
PROVIDERS: Visit Provider Physician Assistant
DX: M17.12 Unilateral primary osteoarthritis, left knee (principal)
CPT/HCPCS: 73560; 73565; 99202

== ENCOUNTER 2022-08-18 21:05 | Emergency (ER) | payer MEDICAID, SELFPAY ==
[2022-08-18 21:16] VITALS: BP 157/89; PULSE 81; RESP 18; TEMP 36.1; O2SAT 99; BMI 34.4
[2022-08-18] MEDS: Ondansetron ODT 4 MG TAB.RAPDIS TRANSLINGU (21:26)
[2022-08-18 21:35] LABS: MANUAL DIFF FLAG NO
[2022-08-18 21:38] LABS: Basophils Percent Auto 0.4 % (0-2); Eosinophils Absolute Auto 0.2 X10*3/uL (0.0-0.4); Eosinophils Percent Auto 2.2 % (0-4); Hematocrit 35.6 % (37.0-47.0); Hemoglobin 12.6 g/dl (12.0-16.0); Imm Gran Abs Auto 0.02 X10*3/uL (0.00-0.03); Imm Gran Pct Auto 0.3 % (0.0-0.4); Lymphocytes Absolute Auto 2.7 X10*3/uL (1.2-4.9); Lymphocytes Percent Auto 35.3 % (20-40); Mean Corpuscular HGB Conc 35.4 g/dl (31.0-35.0); Mean Corpuscular Hemoglobin 31.1 pg (27.0-33.0); Mean Corpuscular Volume 87.9 fL (80.0-98.0); Mean Platelet Volume 10.1 fL (9.4-12.3); Monocytes Absolute Auto 0.4 X10*3/uL (0.1-1.2); Monocytes Percent Auto 5.6 % (2-11); Neutrophils Absolute Auto 4.3 x10*3/uL (2.0-8.3); Neutrophils Percent Auto 56.2 % (45-73); Platelet Count 319 X10*3/uL (160-400); Red Blood Count 4.05 X10*6/uL (4.20-5.50); Red Cell Distribution Width 12.5 % (11.0-16.0); White Blood Count 7.7 X10*3/uL (4.8-10.8)
[2022-08-18 21:57] LABS: Alanine Aminotransferase 32 U/L (0-31); Albumin Level 4.2 g/dL (3.5-5.0); Alkaline Phosphatase 156 U/L (39-117); Anion Gap 17 (12-20); Aspartate Amino Transferase 21 U/L (5-31); Bilirubin Direct < 0.2 mg/dL (0.0-0.5); Bilirubin Total 0.3 mg/dL (0.0-1.0); Blood Urea Nitrogen 15 mg/dL (9-16); Calcium 8.9 mg/dL (8.4-10.2); Carbon Dioxide 24 mmol/L (22-29); Chloride 99 mmol/L (96-108); Creatinine Clr Calc Pharmacy 87.6; Estimated Glomerular Filt Rate > 60; Glucose Random 361 mg/dL (60-115); Lipase 168 U/L (8-78); Potassium 4.5 mmol/L (3.3-5.1); Sodium 135 mmol/L (135-145); Total Protein 7.3 g/dL (6.5-8.0)
--- NOTE | 2022-08-18 22:15 | PC.NURSE ---
poc of [address] Bravo , no new orders at this time.
[2022-08-18 22:35] LABS: Appearance Urine Cloudy; Color Urine Yellow; Glucose Urine UA 500 mg/dL (Negative); Leukocyte Esterase Urine Moderate (2+) (Negative); Nitrite Urine Negative (Negative); PH 5.5 (5.0-9.0); Specific Gravity - Urine >= 1.030 (1.005-1.025); UMIC TRIGGER UACC YES; Urine Blood Small (1+) (Negative); Urine Ketones Negative (Negative); Urine Protein Trace mg/dL (Neg-Trace)
[2022-08-18 22:38] LABS: Bacteria Urine 2+ (None Seen); Hyaline Casts Urine 0-2 /LPF (0-2); UACC Culture Trigger YES; WBC Urine >50 /HPF (0-5)
[2022-08-19 00:36] VITALS: BP 152/86; PULSE 83; RESP 18; TEMP 36.2; O2SAT 100
== END 2022-08-19 05:24 | disposition left against medical advice (07) ==
PROVIDERS: Emergency Provider Emergency Medicine; PCP Internal Medicine
DX: R10.2 Pelvic and perineal pain (principal)
CPT/HCPCS: 36415; 80053; 81001; 82248; 83690; 85025; 87086; 99283

== ENCOUNTER 2022-09-17 21:00 | Emergency (ER) | payer MEDICAID, SELFPAY ==
[2022-09-17 21:03] VITALS: BP 157/91; PULSE 90; RESP 18; TEMP 36.2; O2SAT 97; BMI 32.8
[2022-09-17 21:18] LABS: Hematocrit 36.8 % (37.0-47.0); Hemoglobin 13.1 g/dl (12.0-16.0); Mean Corpuscular HGB Conc 35.6 g/dl (31.0-35.0); Mean Corpuscular Hemoglobin 31.2 pg (27.0-33.0); Mean Corpuscular Volume 87.6 fL (80.0-98.0); Platelet Count 331 X10*3/uL (160-400); Red Cell Distribution Width 12.7 % (11.0-16.0); White Blood Count 7.8 X10*3/uL (4.8-10.8)
[2022-09-17 21:39] LABS: Alanine Aminotransferase 33 U/L (0-31); Albumin Level 4.4 g/dL (3.5-5.0); Alkaline Phosphatase 163 U/L (39-117); Anion Gap 14 (12-20); Aspartate Amino Transferase 23 U/L (5-31); Bilirubin Total 0.5 mg/dL (0.0-1.0); Blood Urea Nitrogen 15 mg/dL (9-16); Calcium 9.9 mg/dL (8.4-10.2); Carbon Dioxide 28 mmol/L (22-29); Chloride 101 mmol/L (96-108); Creatinine Clr Calc Pharmacy 93.1; Estimated Glomerular Filt Rate > 60; Glucose Random 154 mg/dL (60-115); Lipase 102 U/L (8-78); Potassium 4.5 mmol/L (3.3-5.1); Sodium 138 mmol/L (135-145); Total Protein 7.5 g/dL (6.5-8.0)
--- NOTE | 2022-09-17 22:00 | ED_ITS ---
HPI - Nausea/Vomiting/Diarrhea General Chief complaint: Nausea/Vomiting/Diarrhea Stated complaint: High b/p , headache Time Seen by Provider: 09/17/22 21:33 Source: patient Mode of arrival: ambulatory Limitations: no limitations History of Present Illness HPI Narrative: patient comes to the emergency room complaining of diarrhea for 4 days and abdominal cramping, especially right before having a bowel movement, no constant abdominal pain. Also patient noticed that she had high blood pressure. Patient has history of hypertension. Patient states that her blood pressure was approximately 160/150 . For the diarrhea, patient has been taking Imodium, took 2 tablets Yesterday and today, no vomiting, Related Data Home Medications Medication Instructions Recorded Confirmed albuterol sulfate 90 mcg/actuation 2 puff inhalation QID PRN 10/06/20 07/06/21 aerosol inhaler (ProAir HFA) Shortness Of Breath bupropion HCl 150 mg 24 hr tablet, 150 mg PO DAILY 10/06/20 07/06/21 extended release (Wellbutrin XL) bupropion HCl 300 mg 24 hr tablet, 300 mg PO DAILY 10/06/20 07/06/21 extended release (Wellbutrin XL) cetirizine 10 mg tablet (Zyrtec) 10 mg PO DAILY 10/06/20 07/06/21 duloxetine 60 mg capsule,delayed 60 mg PO DAILY 10/06/20 07/06/21 release (Cymbalta) glimepiride 1 mg tablet 1 mg PO DAILY 10/06/20 07/06/21 insulin glargine 100 unit/mL 20 unit subcut BEDTIME 10/06/20 07/11/21 subcutaneous solution (Lantus U-100 Insulin) mirtazapine 45 mg tablet 45 mg PO BEDTIME PRN Insomnia 10/06/20 07/06/21 montelukast 10 mg tablet 10 mg PO BEDTIME 10/06/20 07/06/21 (Singulair) prazosin 1 mg capsule 1 mg PO BEDTIME 10/06/20 07/06/21 ropinirole 1 mg tablet 1 mg PO BEDTIME 10/06/20 07/06/21 tiotropium bromide 18 mcg capsule 1 cap inhalation DAILY 10/06/20 07/06/21 with inhalation device (Spiriva with HandiHaler) fenofibrate micronized 134 mg 1 tab PO QPM 05/24/21 07/06/21 capsule fluticasone propionate 50 2 spray intranasal DAILY 05/24/21 07/06/21 mcg/actuation nasal spray,suspension lisinopril 2.5 mg tablet 1 tab PO QAM 05/24/21 07/06/21 oxycodone-acetaminophen 5 mg-325 1 tab PO Q8H PRN pain 05/24/21 07/06/21 mg tablet topiramate 50 mg tablet 1 tab PO BEDTIME 05/24/21 07/06/21 fluticasone propionate 110 2 puff inhalation BID 08/24/21 mcg/actuation HFA aerosol inhaler (Flovent HFA) Previous Rx's Medication Instructions Recorded propranolol 20 mg tablet 20 mg PO BID #60 tabs 10/07/20 meloxicam 15 mg tablet 15 mg PO DAILY 30 days #30 tabs 02/05/22 naloxegol 12.5 mg tablet (Movantik) 12.5 mg PO QAM #30 tabs 05/22/22 omeprazole 20 mg capsule,delayed 40 mg PO BID #120 caps 05/22/22 release cefuroxime axetil 500 mg tablet 500 mg PO BID #14 tabs 09/17/22 diphenoxylate-atropine 2.5 1 tab PO TID PRN diarrhea #7 tabs 09/17/22 mg-0.025 mg tablet (Lomotil) Allergies Allergy/AdvReac Type Severity Reaction Status Date / Time ENVIRONMENTAL Allergy Unknown HAYFEVER Uncoded 08/18/22 21:15 Review of Systems Review of Systems: Constitutional : No Weight loss, No Fever, No Chills, No Night Sweats, No Fatigue, No Malaise ENT/Mouth : No Hearing loss, No Ear Pain, No Nasal Congestion, No Sinus Pain, No Hoarseness, No sore throat, No Rhinorrhea, No Swallowing Difficulty Eyes: No Eye Pain, No Swelling, No Redness, No Foreign Body, No Discharge, No Vision Changes Cardiovascular : No Chest Pain, No SOB, No Dyspnea on Exertion, No Orthopnea, No Edema, No Palpitations Respiratory : No Cough, No Sputum, No Wheezing, No Smoke Exposure, No Dyspnea Gastrointestinal : complaining of Nausea, No Vomiting, complaining a Diarrhea, No Constipation, complaining of abdominal cramping, No Hematochezia, No Melena Genitourinary : no irregular bleeding, No Dysuria, No Urinary Frequency, No Hematuria, No Urinary Incontinence, No Urgency, No Flank Pain, No Urinary Flow Changes, No Hesitancy Musculoskeletal : No joint pain, No Myalgias, No Joint Swelling Skin : No Skin Lesions, No rash Neuro : No Weakness, No Numbness, No Paresthesias, No Loss of Consciousness, No Dizziness, No Headache Psych : No Anxiety/Panic, No Depression, No SI/HI/AH/VH, No Social Issues, Heme/Lymph: No Bruising, No Bleeding,No Lymphadenopathy Endocrine : No Polyuria, No Polydipsia, No Temperature Intolerance [facility] Past Medical History Medical History Asthma COPD (chronic obstructive pulmonary disease) Diabetes Hemiplegic migraine HLD (hyperlipidemia) HTN (hypertension) Migraines Sciatica Surgical History H/O: hysterectomy History of ear surgery History of esophagogastroduodenoscopy (EGD) Hx laparoscopic cholecystectomy Hx of colonoscopy Family History Family History Sister Migraine Social History Social History Household Members: None Housing: Apartment Do you presently have visiting nurse or other home services: No Alcohol intake: never Patient Tobacco Use Status: Current everyday Tobacco user Tobacco use type: Cigarette Cigarette Packs Per Day: 0.4 Cigarettes Per Day: 10 Years Smoked: 20 Second Hand Smoke Exposure: Yes Advance Directives: No Advance Directives Information Provided: No service: No Current occupational status: other Physical Exam Vital Signs: Vital Signs: Last Vital Signs Temp 97.1 F 09/17/22 21:03 Pulse 88 09/18/22 01:30 Resp 16 09/18/22 00:04 BP 114/56 L 09/18/22 01:30 Pulse Ox 96 09/17/22 23:28 O2 Del Method 09/17/22 23:28 BMI result Body Mass Index 32.8 Const: Other: Appearance: Alert. Oriented X3. No acute distress. Eyes: Pupils equal, round and reactive to light. ENT: Pharynx normal. Neck: Normal inspection. Neck supple. No lymph nodes noted. No crepitus CVS: Normal heart rate and rhythm. Pulses normal. Normal S1 and S2 Respiratory: No respiratory distress. Breath sounds normal. No Wheezing. No rales Abdomen: Soft and nontender. No rigidity. No distention. Skin: Skin warm and dry. Normal skin color. Normal skin turgor. Extremities: No lower extremity edema. No Lacerations. No Rash Neuro: Oriented X 3. No motor deficit. No sensory deficit. Moving all extremities. No slurred speech. CN 2 through 12 grossly intact Psych: calm, cooperative, normal affect Course Course Course Narrative: I discussed the labs with the patient. patient was given 1 dose of p.o. Lomotil and Zofran Also discussed with the patient had a blood pressure of 160/150 is not possible. I recheck the blood pressure in the room, it was 137/77, patient takes lisinopril 20 mg and is compliant. however, on arrival it was 157/91. Patient's urinalysis pending. Patient had a UA positive for UTI on 08/18/2022. urinalysis positive for UTI. Patient received 1 dose of IM ceftriaxone and will be going home with cefuroxime before patient was getting ready to discharge, patient was given a dose of ceftriaxone IM with lidocaine. Then patient had the urge to go to the bathroom to move her bowels. patient got up from the toilet, started walking towards her bed and patient had a near syncopal episode. Patient fell to the ground, states that she got very lightheaded. According to the the patient did not hit her head or lost consciousness. patient denies chest pain or shortness of breath. patient complaining of rectal pain/ burning sensation from passing so much diarrhea. Orthostatic vitals were checked, blood pressure positive for other static hypotension. Patient receiving now IV fluids. Patient denies chest pain or shortness of breath. patient was helped to bed, patient recovered well, blood pressure improved to 108/62. I discussed with patient that given that her orthostatics are positive, we will go ahead and give her 2 L of normal saline, topical hydrocortisone was ordered as well after 2 L of normal saline, orthostatic vitals are negative, patient feeling better. Patient refer discharge Medications Administered Generic Name Dose Route Start Last Admin Trade Name Freq PRN Reason Stop Dose Admin Sodium Chloride 2,000 mls @ 999 mls/hr 09/17/22 23:58 09/18/22 00:15 Ns IVCONT 09/18/22 01:58 999 mls/hr .Q2H1M ONE Administration Discontinued Medications Generic Name Dose Route Start Last Admin Trade Name Tyree PRN Reason Stop Dose Admin Ceftriaxone Sodium 1 gm/ 0 gm 09/17/22 23:04 09/17/22 23:19 Lidocaine HCl 2.1 ml IM 09/17/22 23:05 1 kit ONCE ONE Administration Diphenoxylate HCl/Atropine 2 tab 09/17/22 21:59 09/17/22 22:19 Diphenoxylate/Atrop 2.5/0.025 Tablet PO 09/17/22 22:00 2 tab ONCE ONE Administration Ondansetron HCl 4 mg 09/17/22 21:59 09/17/22 22:19 Ondansetron Odt 4 Mg Tab.Rapdis TRANSLINGU 09/17/22 22:00 4 mg ONCE ONE Administration MDM - Nausea/Vomiting/Diarrhea Lab Data Result diagrams: 09/17/22 21:14 09/17/22 21:14 Labs: Lab Results 09/17/22 09/17/22 09/17/22 Range/Units 21:14 21:14 21:14 WBC 7.8 (4.8-10.8) X10*3/uL RBC 4.20 (4.20-5.50) X10*6/uL Hgb 13.1 (12.0-16.0) g/dl Hct 36.8 L (37.0-47.0) % MCV 87.6 (80.0-98.0) fL MCH 31.2 (27.0-33.0) pg MCHC 35.6 H (31.0-35.0) g/dl RDW 12.7 (11.0-16.0) % Plt Count 331 (160-400) X10*3/uL MPV 10.0 (9.4-12.3) fL Absolute Nucleated RBC 0.000 (0.0-0.012) X10*3/uL Nucleated RBC % (auto) 0.0 (0.0-0.2) /100WBC Sodium 138 (135-145) mmol/L Potassium 4.5 (3.3-5.1) mmol/L Chloride 101 (96-108) mmol/L Carbon Dioxide 28 (22-29) mmol/L Anion Gap 14 (12-20) BUN 15 (9-16) mg/dL Creatinine 0.78 (0.5-1.4) mg/dL Estim Creat Clear Calc 93.1 Estimated GFR > 60 Random Glucose 154 H (60-115) mg/dL Calcium 9.9 D (8.4-10.2) mg/dL Total Bilirubin 0.5 (0.0-1.0) mg/dL AST 23 (5-31) U/L ALT 33 H (0-31) U/L Alkaline Phosphatase 163 H (39-117) U/L Troponin I High Sens < 3.5 (<3.5-17.0) ng/L Total Protein 7.5 (6.5-8.0) g/dL Albumin 4.4 (3.5-5.0) g/dL Lipase 102 H (8-78) U/L Urine Color Urine Appearance Urine pH (5.0-9.0) Ur Specific [place] (1.005-1.025) Urine Protein (Neg-Trace) mg/dL Urine Glucose (UA) (Negative) mg/dL Urine Ketones (Negative) mg/dL Urine Blood (Negative) Urine Nitrite (Negative) Ur Leukocyte Esterase (Negative) Urine RBC (0-2) /HPF Urine WBC (0-5) /HPF Ur Squamous Epith Cells (0-2) /HPF Urine Bacteria (None Seen) Hyaline Casts (0-2) /LPF 09/17/22 Range/Units 22:38 WBC (4.8-10.8) X10*3/uL RBC (4.20-5.50) X10*6/uL Hgb (12.0-16.0) g/dl Hct (37.0-47.0) % MCV (80.0-98.0) fL MCH (27.0-33.0) pg MCHC (31.0-35.0) g/dl RDW (11.0-16.0) % Plt Count (160-400) X10*3/uL MPV (9.4-12.3) fL Absolute Nucleated RBC (0.0-0.012) X10*3/uL Nucleated RBC % (auto) (0.0-0.2) /100WBC Sodium (135-145) mmol/L Potassium (3.3-5.1) mmol/L Chloride (96-108) mmol/L Carbon Dioxide (22-29) mmol/L Anion Gap (12-20) BUN (9-16) mg/dL Creatinine (0.5-1.4) mg/dL Estim Creat Clear Calc Estimated GFR Random Glucose (60-115) mg/dL Calcium (8.4-10.2) mg/dL Total Bilirubin (0.0-1.0) mg/dL AST (5-31) U/L ALT (0-31) U/L Alkaline Phosphatase (39-117) U/L Troponin I High Sens (<3.5-17.0) ng/L Total Protein (6.5-8.0) g/dL Albumin (3.5-5.0) g/dL Lipase (8-78) U/L Urine Color Yellow Urine Appearance Clear Urine pH 5.0 (5.0-9.0) Ur Specific [place] 1.025 (1.005-1.025) Urine Protein Trace (Neg-Trace) mg/dL Urine Glucose (UA) Negative (Negative) mg/dL Urine Ketones Trace (Negative) mg/dL Urine Blood Negative (Negative) Urine Nitrite Negative (Negative) Ur Leukocyte Esterase Moderate (2+) H (Negative) Urine RBC 3-5 H (0-2) /HPF Urine WBC >50 H (0-5) /HPF Ur Squamous Epith Cells 6-10 (0-2) /HPF Urine Bacteria 3+ (None Seen) Hyaline Casts 0-2 (0-2) /LPF Critical Care Time Critical Care Time Critical Care Time: Yes Total Critical Care Time: 50 Attestation: I have personally provided critical care time. Time includes review of lab data, radiology results, discussion with consultants, and monitoring for potential decompensation. Intervention performed as documented. Discharge Plan Discharge Clinical Impression: Diarrhea, UTI (urinary tract infection), Orthostatic hypotension Patient Disposition: Home, Self-Care Instructions: Urinary Tract Infection in Women (ED), Acute Diarrhea (ED) Additional Instructions: Please follow-up with your primary care physician tomorrow. If you have any worsening or new symptoms, please return to the emergency room or call 911 Prescriptions: New cefuroxime axetil 500 mg tablet 500 mg PO BID Qty: 14 0RF diphenoxylate-atropine [Lomotil] 2.5-0.025 mg tablet 1 tab PO TID PRN (Reason: diarrhea) Qty: 7 0RF No Action omeprazole 20 mg capsule,delayed release(DR/EC) 40 mg PO BID Qty: 120 3RF Movantik 12.5 mg tablet 12.5 mg PO QAM Qty: 30 2RF ropinirole 1 mg Tablet 1 mg PO BEDTIME Lantus U-100 Insulin 100 unit/mL Solution 20 unit SUBCUT BEDTIME cetirizine [Zyrtec] 10 mg Tablet 10 mg PO DAILY prazosin 1 mg Capsule 1 mg PO BEDTIME glimepiride 1 mg Tablet 1 mg PO DAILY mirtazapine 45 mg Tablet 45 mg PO BEDTIME PRN (Reason: Insomnia) montelukast [Singulair] 10 mg Tablet 10 mg PO BEDTIME albuterol sulfate [ProAir HFA] 90 mcg/actuation Hfa Aerosol Inhaler 2 puff INHALATION QID PRN (Reason: Shortness Of Breath) bupropion HCl [Wellbutrin XL] 300 mg Tablet Extended Release 24 Hr 300 mg PO DAILY bupropion HCl [Wellbutrin XL] 150 mg Tablet Extended Release 24 Hr 150 mg PO DAILY Spiriva with HandiHaler 18 mcg Capsule, W/Inhalation Device 1 cap INHALATION DAILY duloxetine [Cymbalta] 60 mg Capsule,Delayed Release(Dr/Ec) 60 mg PO DAILY propranolol 20 mg tablet 20 mg PO BID Qty: 60 0RF Rx Instructions: Replaces metoprolol succinate. Lowers blood pressure and prevents migraines. fenofibrate micronized 134 mg capsule 1 tab PO QPM oxycodone-acetaminophen 5-325 mg tablet 1 tab PO Q8H PRN (Reason: pain) fluticasone propionate 50 mcg/actuation spray,suspension 2 spray intranasal DAILY lisinopril 2.5 mg tablet 1 tab PO QAM topiramate 50 mg tablet 1 tab PO BEDTIME Flovent HFA 110 mcg/actuation HFA aerosol inhaler 2 puff inhalation BID meloxicam 15 mg tablet 15 mg PO DAILY 30 Days Qty: 30 0RF
[2022-09-17] MEDS: Diphenoxylate/Atrop 2.5/0.025 TABLET 2 TAB PO (22:19)
[2022-09-17] MEDS: Ondansetron ODT 4 MG TAB.RAPDIS TRANSLINGU (22:19)
[2022-09-17 22:45] LABS: Appearance Urine Clear; Color Urine Yellow; Glucose Urine UA Negative (Negative); Leukocyte Esterase Urine Moderate (2+) (Negative); Nitrite Urine Negative (Negative); Specific Gravity - Urine 1.025 (1.005-1.025); UMIC TRIGGER UACC YES; Urine Blood Negative (Negative); Urine Ketones Trace mg/dL (Negative); Urine Protein Trace mg/dL (Neg-Trace)
[2022-09-17 22:50] LABS: Bacteria Urine 3+ (None Seen); Hyaline Casts Urine 0-2 /LPF (0-2); UACC Culture Trigger YES; WBC Urine >50 /HPF (0-5)
[2022-09-17] MEDS: cefTRIAXone sodium 1 GM, Lidocaine HCl 1 % MPF 2.1 ML IM (23:19)
[2022-09-17 23:28] VITALS: PULSE 79; O2SAT 96
[2022-09-17 23:59] VITALS: BP 113/70; PULSE 82
[2022-09-18 00:01] VITALS: BP 69/38; PULSE 85
[2022-09-18 00:04] VITALS: BP 108/62; PULSE 75; RESP 16
[2022-09-18] MEDS: 0.9 % Sodium Chloride 2,000 ML 999 ML IVCONT (00:15)
[2022-09-18 01:01] LABS: Troponin-I High Sensitivity < 3.5 ng/L (<3.5-17.0)
[2022-09-18 01:28] VITALS: BP 110/56; PULSE 83
[2022-09-18 01:30] VITALS: BP 114/56; PULSE 88
--- NOTE | 2022-09-18 01:33 | PC.NURSE ---
patient had vas vagal episode when trying to discharge her previously - pt got up to have bowel movement and felt dizzy, lightheaded, lowered self to ground with the help of her , felt like she was going to pass out. orthostatic vitals done - pos orthostatics. BP down to 68/38 when standing, patient diaphoretic clammy and pale. iv placed, given 2 liter bolus fluids. orthos rechecked - negative. BP 110/56 laying to 114/56 standing. patient feels better, less dizzy/lightheaded
== END 2022-09-18 01:56 | disposition home or self-care (01) ==
PROVIDERS: Emergency Provider Emergency Medicine; PCP Internal Medicine
DX: N39.0 Urinary tract infection, site not specified (principal); R51.9 Headache, unspecified; I95.1 Orthostatic hypotension; F17.210 Nicotine dependence, cigarettes, uncomplicated; Z71.6 Tobacco abuse counseling; Z79.899 Other long term (current) drug therapy
CPT/HCPCS: 36415; 80053; 81001; 83690; 84484; 85027; 87086; 96372; 99284; J0696

== ENCOUNTER 2022-12-12 16:57 | Emergency (ER) | payer MEDICAID, SELFPAY ==
--- NOTE | ~2022-12-12 | US_ITS ---
EXAMINATION: US VENOUS ULTRASOUND WITH DOPPLER LOWER EXTREMITY, LEFT CLINICAL INFORMATION: Pain in the left calf. COMPARISON: Bilateral DVT ultrasound 08/30/2019. TECHNIQUE: Ultrasound of the deep veins is performed from the hip to the calf with compression sonography and color and pulse Doppler assessment. Spectral analysis with color-flow imaging is performed. FINDINGS: There is normal venous compression and respiratory variation and augmented flow. The visualized common femoral vein, superficial femoral vein, profunda femoral vein, popliteal vein, and the trifurcation region shows no evidence of deep venous thrombosis. There is no significant popliteal fossa cyst. If the patient's symptoms persist, followup ultrasound in 5 days 7 days might be of value to exclude proximal propagation from a non-visualized calf vein. US/US venous duplex LE IMPRESSION: No DVT demonstrated in the left lower extremity.
[2022-12-12 17:04] VITALS: BP 128/81; BP 144/84; PULSE 84; PULSE 85; RESP 16; TEMP 37.2; O2SAT 95; O2SAT 97; BMI 38.7
[2022-12-12 17:11] VITALS: BP 132/80; PULSE 85; RESP 18; TEMP 37; O2SAT 94
--- NOTE | 2022-12-12 18:11 | ED_ITS ---
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 patient is interviewed using a assault boat coxswain she reports for the last 3 days she has a worsening headache the left side of her head starting in the front extending all the way to the back of the head she reports her pain as stabbing, 9/10, constant she reports associated light sensitivity denies any trauma to the head or neck she is not on any anticoagulation for the reasons the patient reports taking Tylenol with no relief of her symptoms she states that her primary doctor sent her to the emergency department patient denies any numbness, tingling, weakness, difficulty speaking she does endorse left leg pain has been present for about 1 week she states the pain starts around her left calf and denies any trauma to the leg of note, the patient was seen here in September of 2020 for a severe migraine with left-sided deficits that was found to be a complicated migraine after a negative stroke workup including MRI Related Data Home Medications Medication Instructions Recorded Confirmed albuterol sulfate 90 mcg/actuation 2 puff inhalation QID PRN 10/06/20 07/06/21 aerosol inhaler (ProAir HFA) Shortness Of Breath bupropion HCl 150 mg 24 hr tablet, 150 mg PO DAILY 10/06/20 07/06/21 extended release (Wellbutrin XL) bupropion HCl 300 mg 24 hr tablet, 300 mg PO DAILY 10/06/20 07/06/21 extended release (Wellbutrin XL) cetirizine 10 mg tablet (Zyrtec) 10 mg PO DAILY 10/06/20 07/06/21 duloxetine 60 mg capsule,delayed 60 mg PO DAILY 10/06/20 07/06/21 release (Cymbalta) glimepiride 1 mg tablet 1 mg PO DAILY 10/06/20 07/06/21 insulin glargine 100 unit/mL 20 unit subcut BEDTIME 10/06/20 07/11/21 subcutaneous solution (Lantus U-100 Insulin) mirtazapine 45 mg tablet 45 mg PO BEDTIME PRN Insomnia 10/06/20 07/06/21 montelukast 10 mg tablet 10 mg PO BEDTIME 10/06/20 07/06/21 (Singulair) prazosin 1 mg capsule 1 mg PO BEDTIME 10/06/20 07/06/21 ropinirole 1 mg tablet 1 mg PO BEDTIME 10/06/20 07/06/21 tiotropium bromide 18 mcg capsule 1 cap inhalation DAILY 10/06/20 07/06/21 with inhalation device (Spiriva with HandiHaler) fenofibrate micronized 134 mg 1 tab PO QPM 05/24/21 07/06/21 capsule fluticasone propionate 50 2 spray intranasal DAILY 05/24/21 07/06/21 mcg/actuation nasal spray,suspension lisinopril 2.5 mg tablet 1 tab PO QAM 05/24/21 07/06/21 oxycodone-acetaminophen 5 mg-325 1 tab PO Q8H PRN pain 05/24/21 07/06/21 mg tablet topiramate 50 mg tablet 1 tab PO BEDTIME 05/24/21 07/06/21 fluticasone propionate 110 2 puff inhalation BID 08/24/21 mcg/actuation HFA aerosol inhaler (Flovent HFA) Previous Rx's Medication Instructions Recorded propranolol 20 mg tablet 20 mg PO BID #60 tabs 10/07/20 meloxicam 15 mg tablet 15 mg PO DAILY 30 days #30 tabs 02/05/22 naloxegol 12.5 mg tablet (Movantik) 12.5 mg PO QAM #30 tabs 05/22/22 omeprazole 20 mg capsule,delayed 40 mg PO BID #120 caps 05/22/22 release cefuroxime axetil 500 mg tablet 500 mg PO BID #14 tabs 09/17/22 diphenoxylate-atropine 2.5 1 tab PO TID PRN diarrhea #7 tabs 09/17/22 mg-0.025 mg tablet (Lomotil) onxidpoari-yqoipnawahywq-ndqwynoy 1 cap PO TID PRN headache #10 caps 12/12/22 50 mg-300 mg-40 mg capsule (Fioricet) Allergies Allergy/AdvReac Type Severity Reaction Status Date / Time ENVIRONMENTAL Allergy Unknown HAYFEVER Uncoded 08/18/22 21:15 Review of Systems Constitutional: Constitutional: Reports as per HPI, Denies chills, Denies fatigue, Denies fever(s) and Reports headache(s) Eyes: Eyes: Denies loss of vision ENT: Reports headache(s) and Denies neck pain Cardiovascular: Cardiovascular: Denies chest pain and Denies dyspnea Respiratory: Respiratory: Denies cough and Denies dyspnea Gastrointestinal: Gastrointestinal: Denies abdominal pain, Denies constipation and Denies vomiting Genitourinary: Genitourinary: Denies dysuria Musculoskeletal: Musculoskeletal: Denies neck pain, Denies numbness, Denies tingling and Reports other ( reports left leg pain) Neurologic: Reports headache(s), Denies focal weakness, Denies loss of vision, Denies numbness, Denies Sensory deficit (Neuro), Denies tingling and Denies paresthesias Endocrine: Endocrine: Denies fatigue PMFSH Past Medical History Medical History Asthma COPD (chronic obstructive pulmonary disease) Diabetes Hemiplegic migraine HLD (hyperlipidemia) HTN (hypertension) Migraines Sciatica Surgical History H/O: hysterectomy History of ear surgery History of esophagogastroduodenoscopy (EGD) Hx laparoscopic cholecystectomy Hx of colonoscopy Family History Family History Sister Migraine Social History Social History Household Members: None Housing: Apartment Do you presently have visiting nurse or other home services: No Alcohol intake: never Patient Tobacco Use Status: Current everyday Tobacco user Tobacco use type: Cigarette Cigarette Packs Per Day: 0.4 Cigarettes Per Day: 10 Years Smoked: 20 Second Hand Smoke Exposure: Yes Advance Directives: No Advance Directives Information Provided: No service: No Current occupational status: other Physical Exam ED Vital Signs: Vital Signs - 24 hr 12/12/22 17:04 12/12/22 17:11 12/12/22 19:36 Temperature 99.0 F 98.6 F 98.0 F Pulse Rate 84 85 83 Respiratory Rate 16 18 17 Blood Pressure 128/81 132/80 155/85 H Pulse Oximetry 95 94 94 Oxygen Delivery Method Room Air Room Air Room Air BMI result Body Mass Index 38.7 Const General: healthy appearing, comfortable, no acute distress, alert and awake Nutritional Appearance: well nourished Orientation/consciousness: patient oriented x3 Eyes Eyelids: Yes eyelids normal Conjunctivae: conjunctivae normal Sclerae: sclerae normal Corneas: corneas normal Pupils: Equal, round and reactive pupils present and Pupil accommodation reflex normal EOM: EOMs intact bilaterally Direct Ophthalmoscopy: no photophobia Resp Effort & Inspection: normal respiratory effort, able to speak in complete sentences, no audible wheezes and not labored Auscultation: clear to auscultation bilaterally Skin General skin exam: no rashes or lesions noted and elasticity normal Lesions: no lesions Rashes: no rashes Neuro General: patient oriented x3 Cranial nerves: Yes Equal, round and reactive pupils present Sensory Exam: No Sensory deficit (Neuro) Extrem General: Yes full ROM Left lower extremity: normal to inspection, full ROM, normal capillary refill and lower leg ( tenderness to palpation of the left calf without visual or palpable deform) Details: normal to inspection and tenderness; no erythema, no palpable cords, edema noted and no ecchymosis; no edema Course Reevaluation(s) Reevaluation #1: patient reports her headache has completely resolved after medications, her ultrasound of the lower extremities negative for DVT. The patient has ambulated about the back without difficulty. this re-evaluation was completed using the assault boat coxswain. Time: 19:41 Medications Administered Discontinued Medications Generic Name Dose Route Start Last Admin Trade Name Mikeq PRN Reason Stop Dose Admin Diphenhydramine HCl 25 mg 12/12/22 18:06 12/12/22 18:16 Diphenhydramine Hcl 50 Mg/Ml Vial IVPUSH 12/12/22 18:07 25 mg ONCE ONE Administration Sodium Chloride 1,000 mls @ 999 mls/hr 12/12/22 18:06 12/12/22 18:26 Ns IV 12/12/22 19:06 999 mls/hr .Q1H1M STA Administration Ketorolac Tromethamine 30 mg 12/12/22 18:06 12/12/22 18:15 Ketorolac Tromethamine 30 Mg/Ml Vial IVPUSH 12/12/22 18:07 30 mg ONCE ONE Administration Metoclopramide HCl 10 mg 12/12/22 18:06 12/12/22 18:16 Metoclopramide Hcl 10 Mg/2 Ml Vial IVPUSH 12/12/22 18:07 10 mg ONCE ONE Administration Medical Decision Making Medical Decision Making [facility] Narrative: with a 52-year-old female with past medical history significant for complicated and hemiplegic migraine. she has a reassuring neurologic exam. No neural deficits. Less likely to be Ischemic CVA/hemorrhagic CVA. she has no fever or neck pain or stiffness to suggest meningitis. Given her reassuring exam and history of migraines, will defer CT imaging this time and elected to treat the patient with IV fluids, Reglan, Benadryl, Toradol. Will reassess. patient has a history of left knee osteoarthrosis which could be contributing to her left leg pain. However we will get an ultrasound to evaluate for DVT Differential Diagnosis Differential Diagnoses: The differential diagnosis associated with the presentation includes ( acute headache ) Tension headache Cluster headache Migraine headache hemorrhagic CVA less likely Discharge Plan Discharge Clinical Impression: Acute headache Patient Disposition: Home, Self-Care Instructions: Acute Headache (ED) Additional Instructions: you may take the prescribed Fioricet medication as needed for breakthrough headaches. However this medication contains Tylenol. you should not take more than 1000 mg of Tylenol at a time and never more than 4000 mg in a day Prescriptions: New uzmaseycvr-huogidxsrorod-uslv [Fioricet] 50-300-40 mg capsule 1 cap PO TID PRN (Reason: headache) Qty: 10 0RF Rx Instructions: Do not take this medication with other sources of Tylenol including Percocet No Action omeprazole 20 mg capsule,delayed release(DR/EC) 40 mg PO BID Qty: 120 3RF Movantik 12.5 mg tablet 12.5 mg PO QAM Qty: 30 2RF ropinirole 1 mg Tablet 1 mg PO BEDTIME Lantus U-100 Insulin 100 unit/mL Solution 20 unit SUBCUT BEDTIME cetirizine [Zyrtec] 10 mg Tablet 10 mg PO DAILY prazosin 1 mg Capsule 1 mg PO BEDTIME glimepiride 1 mg Tablet 1 mg PO DAILY mirtazapine 45 mg Tablet 45 mg PO BEDTIME PRN (Reason: Insomnia) montelukast [Singulair] 10 mg Tablet 10 mg PO BEDTIME albuterol sulfate [ProAir HFA] 90 mcg/actuation Hfa Aerosol Inhaler 2 puff INHALATION QID PRN (Reason: Shortness Of Breath) bupropion HCl [Wellbutrin XL] 300 mg Tablet Extended Release 24 Hr 300 mg PO DAILY bupropion HCl [Wellbutrin XL] 150 mg Tablet Extended Release 24 Hr 150 mg PO DAILY Spiriva with HandiHaler 18 mcg Capsule, W/Inhalation Device 1 cap INHALATION DAILY duloxetine [Cymbalta] 60 mg Capsule,Delayed Release(Dr/Ec) 60 mg PO DAILY propranolol 20 mg tablet 20 mg PO BID Qty: 60 0RF Rx Instructions: Replaces metoprolol succinate. Lowers blood pressure and prevents migraines. fenofibrate micronized 134 mg capsule 1 tab PO QPM oxycodone-acetaminophen 5-325 mg tablet 1 tab PO Q8H PRN (Reason: pain) fluticasone propionate 50 mcg/actuation spray,suspension 2 spray intranasal DAILY lisinopril 2.5 mg tablet 1 tab PO QAM topiramate 50 mg tablet 1 tab PO BEDTIME cefuroxime axetil 500 mg tablet 500 mg PO BID Qty: 14 0RF diphenoxylate-atropine [Lomotil] 2.5-0.025 mg tablet 1 tab PO TID PRN (Reason: diarrhea) Qty: 7 0RF Flovent HFA 110 mcg/actuation HFA aerosol inhaler 2 puff inhalation BID meloxicam 15 mg tablet 15 mg PO DAILY 30 Days Qty: 30 0RF Print Language: Irish
[2022-12-12] MEDS: Ketorolac Tromethamine 30 MG/ML VIAL IVPUSH (18:15)
[2022-12-12] MEDS: diphenhydrAMINE HCL 50 MG/ML VIAL 25 MG IVPUSH (18:16)
[2022-12-12] MEDS: Metoclopramide HCl 10 MG/2 ML VIAL IVPUSH (18:16)
[2022-12-12] MEDS: 0.9 % Sodium Chloride 1,000 ML 999 ML IV (18:26)
--- NOTE | 2022-12-12 19:17 | PC.NURSE ---
assumed care of patient at 1900 - patient resting comfortably on stretcher. at bedside. patient reports relief of pain in head from medications/fluids administered. patient is hungry and ready to go home. this RN informed patient and that we are just waiting for results of ultrasound imaging. will CTM.
[2022-12-12 19:36] VITALS: BP 155/85; PULSE 83; RESP 17; TEMP 36.7; O2SAT 94
== END 2022-12-12 19:55 | disposition home or self-care (01) ==
PROVIDERS: Emergency Provider Emergency Medicine; PCP Internal Medicine
DX: R51.9 Headache, unspecified (principal); R60.0 Localized edema; F17.210 Nicotine dependence, cigarettes, uncomplicated; Z71.6 Tobacco abuse counseling; Z79.899 Other long term (current) drug therapy
CPT/HCPCS: 93971; 96361; 96374; 96375; 99284; J1200; J1885; J2765

== ENCOUNTER 2022-12-17 13:51 | Emergency (ER) | payer MEDICAID, SELFPAY ==
--- NOTE | ~2022-12-17 | CT_ITS ---
EXAMINATION: CT ABDOMEN AND PELVIS WITHOUT CONTRAST CLINICAL INFORMATION: Left flank pain with question of stone. Left hip pain COMPARISON: CT abdomen pelvis 05/23/2021 TECHNIQUE: Multidetector volumetric imaging was performed from the superior aspect of the liver through the pubic symphysis. Sagittal and coronal reformatted images were obtained on the technologist's workstation. This CT examination was performed using dose optimization techniques as appropriate, variously including the following: *Automated exposure control *Adjustment of mA and/or kV according to patient size (this includes techniques or standardized protocols for targeted exams where dose is matched to indication/reason for exam; i.e. extremities or head) *Use of iterative reconstruction technique DLP: 712 mGy-cm FINDINGS: LUNG BASES: Emphysematous changes are again seen at the lung bases. No suspicious masses, infiltrates or pleural effusions seen. LIVER, GALLBLADDER, AND BILIARY TREE: The liver is enlarged measuring measuring 24.7 cm again (previously 27 cm) in length . There is decreased attenuation with probable hepatic steatosis. No focal liver mass or bile duct dilatation is seen. Status post cholecystectomy. A significant recanalized umbilical vein is not present. No significant varices are seen. PANCREAS: Unremarkable. SPLEEN: Dense seen is mild splenomegaly with the spleen measuring 14.6 cm in greatest dimension unchanged from prior. A small splenule is present. ADRENAL GLANDS: Unremarkable. KIDNEYS AND URETERS: The kidneys are normal in size, shape, and attenuation. Small bilateral cysts are seen, Bosniak class I which need no additional imaging or follow-up.. No solid renal masses. No hydronephrosis, hydroureter, or calculi seen. No perinephric stranding. BLADDER: Unremarkable. GASTROINTESTINAL TRACT: The small and large bowel are unremarkable. The appendix is unremarkable. ABDOMINAL WALL: No significant hernia is appreciated. Tiny periumbilical hernia seen containing only fat. LYMPH NODES: No retroperitoneal lymphadenopathy. Small periportal lymph nodes again noted. VASCULAR: Calcific infrarenal aortoiliac plaque. No aneurysms. PELVIC VISCERA: Surgically absent OSSEOUS STRUCTURES: Marked degenerative changes are stable at L4-L5. No bony destructive changes seen. CT/CT abdomen pelvis wo IV con IMPRESSION: 1. An etiology for the patient's left flank pain has not been found. No renal calculi are seen. 2. Incidental note made of emphysema, hepatosplenomegaly with probable hepatic steatosis, cholecystectomy, hysterectomy and degenerative changes L4-L5.
[2022-12-17 13:56] VITALS: BP 141/82; PULSE 100; RESP 18; TEMP 36.6; O2SAT 98; BMI 33.6
[2022-12-17 14:46] LABS: MANUAL DIFF FLAG NO
[2022-12-17 14:47] LABS: Basophils Percent Auto 0.3 % (0-2); Eosinophils Absolute Auto 0.3 X10*3/uL (0.0-0.4); Eosinophils Percent Auto 4.5 % (0-4); Hematocrit 42.1 % (37.0-47.0); Hemoglobin 14.8 g/dl (12.0-16.0); Imm Gran Abs Auto 0.02 X10*3/uL (0.00-0.03); Imm Gran Pct Auto 0.3 % (0.0-0.4); Lymphocytes Absolute Auto 2.3 X10*3/uL (1.2-4.9); Lymphocytes Percent Auto 31.9 % (20-40); Mean Corpuscular HGB Conc 35.2 g/dl (31.0-35.0); Mean Corpuscular Volume 88.3 fL (80.0-98.0); Monocytes Absolute Auto 0.5 X10*3/uL (0.1-1.2); Monocytes Percent Auto 6.4 % (2-11); Neutrophils Absolute Auto 4.1 x10*3/uL (2.0-8.3); Neutrophils Percent Auto 56.6 % (45-73); Platelet Count 347 X10*3/uL (160-400); Red Blood Count 4.77 X10*6/uL (4.20-5.50); Red Cell Distribution Width 12.2 % (11.0-16.0); White Blood Count 7.3 X10*3/uL (4.8-10.8)
[2022-12-17 14:48] LABS: Appearance Urine Clear; Color Urine Yellow; Glucose Urine UA Negative (Negative); Leukocyte Esterase Urine Moderate (2+) (Negative); Nitrite Urine Negative (Negative); PH 5.5 (5.0-9.0); Specific Gravity - Urine 1.015 (1.005-1.025); UMIC TRIGGER UACC YES; Urine Blood Negative (Negative); Urine Ketones Negative (Negative); Urine Protein Negative (Neg-Trace)
[2022-12-17 14:53] LABS: Bacteria Urine None Seen (None Seen); Hyaline Casts Urine 0-2 /LPF (0-2); RBC Urine 0-2 /HPF (0-2); UACC Culture Trigger YES
[2022-12-17 15:02] LABS: COVID-19 Test Negative (Negative); IDNOW Serial# 16C4AD1C
[2022-12-17 15:03] LABS: Alanine Aminotransferase 38 U/L (0-31); Albumin Level 4.5 g/dL (3.5-5.0); Alkaline Phosphatase 168 U/L (39-117); Anion Gap 13 (12-20); Aspartate Amino Transferase 28 U/L (5-31); Bilirubin Direct < 0.2 mg/dL (0.0-0.5); Bilirubin Total 0.5 mg/dL (0.0-1.0); Blood Urea Nitrogen 13 mg/dL (9-16); Calcium 9.7 mg/dL (8.4-10.2); Carbon Dioxide 28 mmol/L (22-29); Chloride 100 mmol/L (96-108); Creatinine Clr Calc Pharmacy 89.8; Estimated Glomerular Filt Rate > 60; Glucose Random 178 mg/dL (60-115); Lipase 30 U/L (8-78); Potassium 4.8 mmol/L (3.3-5.1); Sodium 136 mmol/L (135-145); Total Protein 7.9 g/dL (6.5-8.0)
[2022-12-17 16:11] VITALS: BP 135/80; PULSE 92; RESP 18; TEMP 36.9; O2SAT 95
--- NOTE | 2022-12-17 16:23 | ED_ITS ---
HPI - General Adult General Chief complaint: Abdominal Pain Stated complaint: L flank pain Time Seen by Provider: 12/17/22 16:15 Source: patient and manager wireless Mode of arrival: ambulatory Limitations: no limitations History of Present Illness HPI narrative: 52-year-old female came in for evaluation of left flank pain, that started 2 weeks ago, pain is mostly in the left flank/left hip area goes down to the left lower abdominal area, pain has been constant worsening with movement and walking, no blood in the urine, more frequent urination with no dysuria or vaginal discharge. No history of strenuous activity or similar symptoms. No fever, no chills, no nausea, no vomiting, no diarrhea. Patient was seen 5 days ago in the emergency department for headache and back pain symptoms has improved before patient was discharged home. Related Data Home Medications Medication Instructions Recorded Confirmed albuterol sulfate 90 mcg/actuation 2 puff inhalation QID PRN 10/06/20 07/06/21 aerosol inhaler (ProAir HFA) Shortness Of Breath bupropion HCl 150 mg 24 hr tablet, 150 mg PO DAILY 10/06/20 07/06/21 extended release (Wellbutrin XL) bupropion HCl 300 mg 24 hr tablet, 300 mg PO DAILY 10/06/20 07/06/21 extended release (Wellbutrin XL) cetirizine 10 mg tablet (Zyrtec) 10 mg PO DAILY 10/06/20 07/06/21 duloxetine 60 mg capsule,delayed 60 mg PO DAILY 10/06/20 07/06/21 release (Cymbalta) glimepiride 1 mg tablet 1 mg PO DAILY 10/06/20 07/06/21 insulin glargine 100 unit/mL 20 unit subcut BEDTIME 10/06/20 07/11/21 subcutaneous solution (Lantus U-100 Insulin) mirtazapine 45 mg tablet 45 mg PO BEDTIME PRN Insomnia 10/06/20 07/06/21 montelukast 10 mg tablet 10 mg PO BEDTIME 10/06/20 07/06/21 (Singulair) prazosin 1 mg capsule 1 mg PO BEDTIME 10/06/20 07/06/21 ropinirole 1 mg tablet 1 mg PO BEDTIME 10/06/20 07/06/21 tiotropium bromide 18 mcg capsule 1 cap inhalation DAILY 10/06/20 07/06/21 with inhalation device (Spiriva with HandiHaler) fenofibrate micronized 134 mg 1 tab PO QPM 05/24/21 07/06/21 capsule fluticasone propionate 50 2 spray intranasal DAILY 05/24/21 07/06/21 mcg/actuation nasal spray,suspension lisinopril 2.5 mg tablet 1 tab PO QAM 05/24/21 07/06/21 oxycodone-acetaminophen 5 mg-325 1 tab PO Q8H PRN pain 05/24/21 07/06/21 mg tablet topiramate 50 mg tablet 1 tab PO BEDTIME 05/24/21 07/06/21 fluticasone propionate 110 2 puff inhalation BID 08/24/21 mcg/actuation HFA aerosol inhaler (Flovent HFA) Previous Rx's Medication Instructions Recorded propranolol 20 mg tablet 20 mg PO BID #60 tabs 10/07/20 meloxicam 15 mg tablet 15 mg PO DAILY 30 days #30 tabs 02/05/22 naloxegol 12.5 mg tablet (Movantik) 12.5 mg PO QAM #30 tabs 05/22/22 omeprazole 20 mg capsule,delayed 40 mg PO BID #120 caps 05/22/22 release cefuroxime axetil 500 mg tablet 500 mg PO BID #14 tabs 09/17/22 diphenoxylate-atropine 2.5 1 tab PO TID PRN diarrhea #7 tabs 09/17/22 mg-0.025 mg tablet (Lomotil) [id number]-kmbqobmn 1 cap PO TID PRN headache #10 caps 12/12/22 50 mg-300 mg-40 mg capsule (Fioricet) cyclobenzaprine 10 mg tablet 10 mg PO TID PRN muscle spasm #14 12/17/22 tabs naproxen 250 mg tablet 250 mg PO Q12H PRN pain #10 tabs 12/17/22 nitrofurantoin 100 mg PO BID #14 caps 12/17/22 monohydrate/macrocrystals 100 mg capsule (Macrobid) Allergies Allergy/AdvReac Type Severity Reaction Status Date / Time ENVIRONMENTAL Allergy Unknown HAYFEVER Uncoded 08/18/22 21:15 Review of Systems Review of Systems: All other systems are reviewed and are negative Constitutional: Reports as per HPI and Reports no additional constitutional complaints Eyes: Reports as per HPI and Reports no additional eye complaints Reports system reviewed and no additional complaints, except as documented Cardiovascular: Reports as per HPI and Reports no additional cardiovascular complaints Respiratory: Reports as per HPI and Reports no additional respiratory complaints Gastrointestinal: Reports as per HPI and Reports no additional gastrointestinal complaints Genitourinary: Reports no additional female genitourinary complaints Musculoskeletal: Reports no additional musculoskeletal complaints Skin/Breast: Reports system reviewed and no additional complaints, except as docu Psychiatric: Reports no additional psychiatric complaints Endocrine: Reports no additional endocrine complaints Hematologic/Lymphatic: Reports no additional hematologic/lymphatic complaints Allergic/Immunologic: Reports no additional allergic/immunologic complaints Reports system reviewed and no additional complaints, except as documented and Reports Abnormal speech present [facility] Past Medical History Medical History Asthma COPD (chronic obstructive pulmonary disease) Diabetes Hemiplegic migraine HLD (hyperlipidemia) HTN (hypertension) Migraines Sciatica Surgical History H/O: hysterectomy History of ear surgery History of esophagogastroduodenoscopy (EGD) Hx laparoscopic cholecystectomy Hx of colonoscopy Family History Family History Sister Migraine Social History Social History Household Members: None Housing: Apartment Do you presently have visiting nurse or other home services: No Alcohol intake: never Patient Tobacco Use Status: Current everyday Tobacco user Tobacco use type: Cigarette Cigarette Packs Per Day: 0.4 Cigarettes Per Day: 10 Years Smoked: 20 Smoked in Last 30 Days: Yes Second Hand Smoke Exposure: Yes Use of substances other than those prescribed or required for medical reasons: No Advance Directives: No Advance Directives Information Provided: Yes Patient : No service: No Current occupational status: other Physical Exam ED Vital Signs: Vital Signs - 24 hr 12/17/22 13:56 12/17/22 16:11 12/17/22 18:20 Temperature 97.9 F 98.4 F Pulse Rate 100 92 85 Respiratory Rate 18 18 16 Blood Pressure 141/82 H 135/80 162/93 H Pulse Oximetry 98 95 93 Oxygen Delivery Method Room Air Room Air Room Air BMI result Body Mass Index 33.6 Vital signs have been reviewed as appeared to be correct. Blood pressure normal. Heart rate normal. Respiration rate normal. Temperature normal. Oxygen saturation normal. Appearance: Alert. Oriented X3. No acute distress. Head: Normal external exam. Normocephalic. Atraumatic. No Rebollar signs noted. No raccoon eyes noted Eyes: PERRLA. EOMI. Conjunctiva and sclera normal. Eyelids normal. ENT: TM's Normal. Pharynx normal. Uvula midline. Moist mucous membranes. No trismus noted. No drooling noted. No muffled voice noted. Neck: Normal inspection. Neck supple. FROM. No adenopathy. Thyroid Normal. No meningeal signs. No neck mass noted. CVS: Normal heart rate and rhythm. Heart sound normal. No murmurs noted. Pulses normal throughout. Respiratory: No respiratory distress. Painless inspiration. Breath sounds normal. No wheezes/rales/rhonchi noted. Chest nontender. No accessory muscle usage noted or decreased air movement noted. Abdomen: Soft and nontender. Bowel sounds normal in all 4 quadrants. No distention noted. No organomegaly noted. No visible injury noted. Back: Left CVA tenderness. Full range of motion noted with severe tenderness. Skin: Skin warm and dry. Normal skin color. Normal skin turgor. No rashes/lesions/lacerations noted. Extremities: No lower extremity edema. Extremities exhibit normal range of motion. Extremities nontender. Neuro: Oriented X 3. Cranial nerve exam: II-XII are grossly intact No motor deficit. No sensory deficit. Reflexes normal. Course Course Course Narrative: 52-year-old female came in with left flank pain. Physical exam and CT of the abdomen and pelvis suggesting myofascial pain of the left side of the lower back start the patient on naproxen as per patient request and muscle relaxant, patient also has simple noncomplicated UTI will start on Macrobid and was instructed to drink plenty of fluid. Medications Administered Discontinued Medications Generic Name Dose Route Start Last Admin Trade Name Freq PRN Reason Stop Dose Admin Hydromorphone HCl 1 mg 12/17/22 19:01 12/17/22 19:22 Hydromorphone Hcl 1 Mg/Ml Syringe IVPUSH 12/17/22 19:02 1 mg ONCE ONE Administration Protocol Sodium Chloride 1,000 mls @ 999 mls/hr 12/17/22 16:20 12/17/22 18:19 Ns IV 12/17/22 17:20 Infused .Q1H1M ONE Infusion Ketorolac Tromethamine 30 mg 12/17/22 19:01 12/17/22 19:22 Ketorolac Tromethamine 30 Mg/Ml Vial IVPUSH 12/17/22 19:02 30 mg ONCE ONE Administration Morphine Sulfate 4 mg 12/17/22 16:20 12/17/22 17:12 Morphine Sulfate 4 Mg/Ml Cartridge IVPUSH 12/17/22 16:21 4 mg ONCE ONE Administration Protocol Medical Decision Making Differential Diagnosis Differential Diagnoses: The differential diagnosis associated with the presentation includes (Kidney stone, pyelonephritis, UTI, myofascial pain, colitis, perforated viscus.) Lab Data MDM Lab Attestation statement: I reviewed the patient's lab results. 12/17/22 14:37 12/17/22 14:37 Labs: Lab Results 12/17/22 12/17/22 12/17/22 Range/Units 14:37 14:37 14:37 WBC 7.3 (4.8-10.8) X10*3/uL RBC 4.77 (4.20-5.50) X10*6/uL Hgb 14.8 (12.0-16.0) g/dl Hct 42.1 (37.0-47.0) % MCV 88.3 (80.0-98.0) fL MCH 31.0 (27.0-33.0) pg MCHC 35.2 H (31.0-35.0) g/dl RDW 12.2 (11.0-16.0) % Plt Count 347 (160-400) X10*3/uL MPV 10.0 (9.4-12.3) fL Immature Gran % (Auto) 0.3 (0.0-0.4) % Neut % (Auto) 56.6 (45-73) % Lymph % (Auto) 31.9 (20-40) % [place] % (Auto) 6.4 (2-11) % Eos % (Auto) 4.5 H (0-4) % Baso % (Auto) 0.3 (0-2) % Lymph # (Auto) 2.3 (1.2-4.9) X10*3/uL [place] # (Auto) 0.5 (0.1-1.2) X10*3/uL Eos # (Auto) 0.3 (0.0-0.4) X10*3/uL Baso # (Auto) 0.0 (0.0-0.2) X10*3/uL Abs Immat Gran (auto) 0.02 (0.00-0.03) X10*3/uL Absolute Neuts (auto) 4.1 (2.0-8.3) x10*3/uL Absolute Nucleated RBC 0.000 (0.0-0.012) X10*3/uL Nucleated RBC % (auto) 0.0 (0.0-0.2) /100WBC Sodium 136 (135-145) mmol/L Potassium 4.8 (3.3-5.1) mmol/L Chloride 100 (96-108) mmol/L Carbon Dioxide 28 (22-29) mmol/L Anion Gap 13 (12-20) BUN 13 (9-16) mg/dL Creatinine 0.79 (0.5-1.4) mg/dL Estim Creat Clear Calc 89.8 Estimated GFR > 60 Random Glucose 178 H (60-115) mg/dL Calcium 9.7 (8.4-10.2) mg/dL Total Bilirubin 0.5 (0.0-1.0) mg/dL Direct Bilirubin < 0.2 (0.0-0.5) mg/dL AST 28 (5-31) U/L ALT 38 H (0-31) U/L Alkaline Phosphatase 168 H (39-117) U/L Total Protein 7.9 (6.5-8.0) g/dL Albumin 4.5 (3.5-5.0) g/dL Lipase 30 (8-78) U/L Urine Color Yellow Urine Appearance Clear Urine pH 5.5 (5.0-9.0) Ur Specific [place] 1.015 (1.005-1.025) Urine Protein Negative (Neg-Trace) mg/dL Urine Glucose (UA) Negative (Negative) mg/dL Urine Ketones Negative (Negative) mg/dL Urine Blood Negative (Negative) Urine Nitrite Negative (Negative) Ur Leukocyte Esterase Moderate (2+) H (Negative) Urine RBC 0-2 (0-2) /HPF Urine WBC 11-20 H (0-5) /HPF Ur Squamous Epith Cells 6-10 (0-2) /HPF Urine Bacteria None Seen (None Seen) Hyaline Casts 0-2 (0-2) /LPF COVID-19 (PORFIRIO) (Negative) COVID-19 Clin Com 12/17/22 Range/Units 14:39 WBC (4.8-10.8) X10*3/uL RBC (4.20-5.50) X10*6/uL Hgb (12.0-16.0) g/dl Hct (37.0-47.0) % MCV (80.0-98.0) fL MCH (27.0-33.0) pg MCHC (31.0-35.0) g/dl RDW (11.0-16.0) % Plt Count (160-400) X10*3/uL MPV (9.4-12.3) fL Immature Gran % (Auto) (0.0-0.4) % Neut % (Auto) (45-73) % Lymph % (Auto) (20-40) % [place] % (Auto) (2-11) % Eos % (Auto) (0-4) % Baso % (Auto) (0-2) % Lymph # (Auto) (1.2-4.9) X10*3/uL [place] # (Auto) (0.1-1.2) X10*3/uL Eos # (Auto) (0.0-0.4) X10*3/uL Baso # (Auto) (0.0-0.2) X10*3/uL Abs Immat Gran (auto) (0.00-0.03) X10*3/uL Absolute Neuts (auto) (2.0-8.3) x10*3/uL Absolute Nucleated RBC (0.0-0.012) X10*3/uL Nucleated RBC % (auto) (0.0-0.2) /100WBC Sodium (135-145) mmol/L Potassium (3.3-5.1) mmol/L Chloride (96-108) mmol/L Carbon Dioxide (22-29) mmol/L Anion Gap (12-20) BUN (9-16) mg/dL Creatinine (0.5-1.4) mg/dL Estim Creat Clear Calc Estimated GFR Random Glucose (60-115) mg/dL Calcium (8.4-10.2) mg/dL Total Bilirubin (0.0-1.0) mg/dL Direct Bilirubin (0.0-0.5) mg/dL AST (5-31) U/L ALT (0-31) U/L Alkaline Phosphatase (39-117) U/L Total Protein (6.5-8.0) g/dL Albumin (3.5-5.0) g/dL Lipase (8-78) U/L Urine Color Urine Appearance Urine pH (5.0-9.0) Ur Specific [place] (1.005-1.025) Urine Protein (Neg-Trace) mg/dL Urine Glucose (UA) (Negative) mg/dL Urine Ketones (Negative) mg/dL Urine Blood (Negative) Urine Nitrite (Negative) Ur Leukocyte Esterase (Negative) Urine RBC (0-2) /HPF Urine WBC (0-5) /HPF Ur Squamous Epith Cells (0-2) /HPF Urine Bacteria (None Seen) Hyaline Casts (0-2) /LPF COVID-19 (PORFIRIO) Negative (Negative) COVID-19 Clin Com See Note Independent Interpretation I performed an independent interpretation of an: CT Scan (Abdomen pelvis CT: No acute intra-abdominal pathology.) Radiology Impression Discussion of test interpretation with radiology: I have reviewed the radiologist's reading. Discharge Plan Discharge Clinical Impression: Myofascial low back pain, UTI (urinary tract infection) Patient Disposition: Home, Self-Care Instructions: Urinary Tract Infection in Women (ED) Prescriptions: New naproxen 250 mg tablet 250 mg PO Q12H PRN (Reason: pain) Qty: 10 0RF cyclobenzaprine 10 mg tablet 10 mg PO TID PRN (Reason: muscle spasm) Qty: 14 0RF nitrofurantoin monohyd/m-cryst [Macrobid] 100 mg capsule 100 mg PO BID Qty: 14 0RF Rx Instructions: must administer with a meal/food No Action omeprazole 20 mg capsule,delayed release(DR/EC) 40 mg PO BID Qty: 120 3RF Movantik 12.5 mg tablet 12.5 mg PO QAM Qty: 30 2RF ropinirole 1 mg Tablet 1 mg PO BEDTIME Lantus U-100 Insulin 100 unit/mL Solution 20 unit SUBCUT BEDTIME cetirizine [Zyrtec] 10 mg Tablet 10 mg PO DAILY prazosin 1 mg Capsule 1 mg PO BEDTIME glimepiride 1 mg Tablet 1 mg PO DAILY mirtazapine 45 mg Tablet 45 mg PO BEDTIME PRN (Reason: Insomnia) montelukast [Singulair] 10 mg Tablet 10 mg PO BEDTIME albuterol sulfate [ProAir HFA] 90 mcg/actuation Hfa Aerosol Inhaler 2 puff INHALATION QID PRN (Reason: Shortness Of Breath) bupropion HCl [Wellbutrin XL] 300 mg Tablet Extended Release 24 Hr 300 mg PO DAILY bupropion HCl [Wellbutrin XL] 150 mg Tablet Extended Release 24 Hr 150 mg PO DAILY Spiriva with HandiHaler 18 mcg Capsule, W/Inhalation Device 1 cap INHALATION DAILY duloxetine [Cymbalta] 60 mg Capsule,Delayed Release(Dr/Ec) 60 mg PO DAILY propranolol 20 mg tablet 20 mg PO BID Qty: 60 0RF Rx Instructions: Replaces metoprolol succinate. Lowers blood pressure and prevents migraines. fenofibrate micronized 134 mg capsule 1 tab PO QPM oxycodone-acetaminophen 5-325 mg tablet 1 tab PO Q8H PRN (Reason: pain) fluticasone propionate 50 mcg/actuation spray,suspension 2 spray intranasal DAILY lisinopril 2.5 mg tablet 1 tab PO QAM topiramate 50 mg tablet 1 tab PO BEDTIME [id number] [Fioricet] 50-300-40 mg capsule 1 cap PO TID PRN (Reason: headache) Qty: 10 0RF Rx Instructions: Do not take this medication with other sources of Tylenol including Percocet cefuroxime axetil 500 mg tablet 500 mg PO BID Qty: 14 0RF diphenoxylate-atropine [Lomotil] 2.5-0.025 mg tablet 1 tab PO TID PRN (Reason: diarrhea) Qty: 7 0RF Flovent HFA 110 mcg/actuation HFA aerosol inhaler 2 puff inhalation BID meloxicam 15 mg tablet 15 mg PO DAILY 30 Days Qty: 30 0RF Referrals: PennyWojciech Ortiz MD [Primary Care Provider] -
[2022-12-17] MEDS: Morphine Sulfate 4 MG/ML CARTRIDGE IVPUSH (17:12)
[2022-12-17] MEDS: 0.9 % Sodium Chloride 1,000 ML 999 ML IV (17:13)
--- NOTE | 2022-12-17 17:15 | PC.NURSE ---
IV inserted. Fluids running. Pt medicated for 10/10 pain per order. will continue to monitor.
[2022-12-17 18:20] VITALS: BP 162/93; PULSE 85; RESP 16; O2SAT 93
--- NOTE | 2022-12-17 18:25 | PC.NURSE ---
pt resting. vss. IV fluids discontinued.
[2022-12-17] MEDS: HYDROmorphone HCl 1 MG/ML SYRINGE IVPUSH (19:22)
[2022-12-17] MEDS: Ketorolac Tromethamine 30 MG/ML VIAL IVPUSH (19:22)
[2022-12-17] MEDS: Nitrofurantoin Monohyd/M-Cryst 100 MG CAPSULE PO (22:03)
--- NOTE | 2022-12-17 22:05 | PC.NURSE ---
Pt medicated per dec, Reviewed discharge instructions with pt. pt verbalized understanding. Notified MATT Crowe .
== END 2022-12-17 22:15 | disposition home or self-care (01) ==
PROVIDERS: Emergency Provider Emergency Medicine; PCP Internal Medicine
DX: M54.50 Low back pain, unspecified (principal); M79.18 Myalgia, other site; N39.0 Urinary tract infection, site not specified; Z20.822 Contact with and (suspected) exposure to COVID-19; E11.9 Type 2 diabetes mellitus without complications; I10 Essential (primary) hypertension; E78.5 Hyperlipidemia, unspecified; F17.210 Nicotine dependence, cigarettes, uncomplicated; Z79.899 Other long term (current) drug therapy; Z79.4 Long term (current) use of insulin
CPT/HCPCS: 74176; 80053; 81001; 82248; 83690; 85025; 87086; 87635; 96361; 96374; 96375; 99284; 99285; J1170; J1885; J2270

== ENCOUNTER 2023-06-27 09:47 | Outpatient (REF) | payer MEDICAID, SELFPAY | END 2023-06-27 09:48 | disposition home or self-care (01) | LOC: HO.HOSX 09:47 | PROVIDERS: Visit Provider Orthopaedic Surgery | DX: Z13.89 Encounter for screening for other disorder (principal) ==

== ENCOUNTER 2023-07-15 11:23 | Outpatient (REF) | payer MEDICAID, SELFPAY ==
[2023-07-15 13:28] LABS: MANUAL DIFF FLAG NO
[2023-07-15 13:43] LABS: Basophils Percent Auto 0.4 % (0-2); Eosinophils Absolute Auto 0.2 X10*3/uL (0.0-0.4); Eosinophils Percent Auto 2.2 % (0-4); Hematocrit 38.2 % (37.0-47.0); Hemoglobin 13.5 g/dl (12.0-16.0); Imm Gran Abs Auto 0.02 X10*3/uL (0.00-0.03); Imm Gran Pct Auto 0.3 % (0.0-0.4); Lymphocytes Absolute Auto 1.8 X10*3/uL (1.2-4.9); Lymphocytes Percent Auto 27.1 % (20-40); Mean Corpuscular HGB Conc 35.3 g/dl (31.0-35.0); Mean Corpuscular Volume 90.5 fL (80.0-98.0); Monocytes Absolute Auto 0.5 X10*3/uL (0.1-1.2); Monocytes Percent Auto 7.5 % (2-11); Neutrophils Absolute Auto 4.3 x10*3/uL (2.0-8.3); Neutrophils Percent Auto 62.5 % (45-73); Platelet Count 316 X10*3/uL (160-400); Red Blood Count 4.22 X10*6/uL (4.20-5.50); Red Cell Distribution Width 12.4 % (11.0-16.0); White Blood Count 6.8 X10*3/uL (4.8-10.8)
[2023-07-15 14:18] LABS: Alanine Aminotransferase 28 U/L (0-31); Albumin Level 4.1 g/dL (3.5-5.0); Alkaline Phosphatase 138 U/L (39-117); Anion Gap 15 (12-20); Aspartate Amino Transferase 22 U/L (5-31); Bilirubin Total 0.5 mg/dL (0.0-1.0); Blood Urea Nitrogen 12 mg/dL (9-16); Calcium 9.7 mg/dL (8.4-10.2); Carbon Dioxide 27 mmol/L (22-29); Chloride 101 mmol/L (96-108); Cholesterol 237 mg/dL (<200); Estimated Glomerular Filt Rate > 60; Glucose Random 311 mg/dL (60-115); HDL Cholesterol 27 mg/dL (>40); Potassium 4.5 mmol/L (3.3-5.1); Sodium 138 mmol/L (135-145); TSH reflex Free T4 0.67 uIU/mL (0.32-4.0); Total Protein 7.6 g/dL (6.5-8.0); Triglycerides 910 mg/dL (<150)
[2023-07-15 14:27] LABS: Microalbum/Creatinine Ratio Ur 37.5 ug/mg cr (<30)
== END 2023-07-15 11:24 | disposition home or self-care (01) ==
LOC: HO.HHCL 11:23
PROVIDERS: Visit Provider Registered Nurse
DX: Z00.00 Encounter for general adult medical examination without abnormal findings (principal); E11.69 Type 2 diabetes mellitus with other specified complication; I10 Essential (primary) hypertension
CPT/HCPCS: 36415; 80053; 80061; 82043; 82570; 84443; 85025

== ENCOUNTER 2023-07-18 15:03 | Emergency (ER) | payer MEDICAID, SELFPAY ==
[2023-07-18 15:21] VITALS: BP 135/93; PULSE 90; RESP 18; TEMP 36.7; O2SAT 99; BMI 29.2
--- NOTE | 2023-07-18 15:21 | ED_ITS ---
HPI - General Adult General Stated complaint: Pancreas Issues Related Data Home Medications Medication Instructions Recorded Confirmed albuterol sulfate 90 mcg/actuation 2 puff inhalation QID PRN 10/06/20 07/06/21 aerosol inhaler (ProAir HFA) Shortness Of Breath bupropion HCl 150 mg 24 hr tablet, 150 mg PO DAILY 10/06/20 07/06/21 extended release (Wellbutrin XL) bupropion HCl 300 mg 24 hr tablet, 300 mg PO DAILY 10/06/20 07/06/21 extended release (Wellbutrin XL) cetirizine 10 mg tablet (Zyrtec) 10 mg PO DAILY 10/06/20 07/06/21 duloxetine 60 mg capsule,delayed 60 mg PO DAILY 10/06/20 07/06/21 release (Cymbalta) glimepiride 1 mg tablet 1 mg PO DAILY 10/06/20 07/06/21 insulin glargine 100 unit/mL 20 unit subcut BEDTIME 10/06/20 07/11/21 subcutaneous solution (Lantus U-100 Insulin) mirtazapine 45 mg tablet 45 mg PO BEDTIME PRN Insomnia 10/06/20 07/06/21 montelukast 10 mg tablet 10 mg PO BEDTIME 10/06/20 07/06/21 (Singulair) prazosin 1 mg capsule 1 mg PO BEDTIME 10/06/20 07/06/21 ropinirole 1 mg tablet 1 mg PO BEDTIME 10/06/20 07/06/21 tiotropium bromide 18 mcg capsule 1 cap inhalation DAILY 10/06/20 07/06/21 with inhalation device (Spiriva with HandiHaler) fenofibrate micronized 134 mg 1 tab PO QPM 05/24/21 07/06/21 capsule fluticasone propionate 50 2 spray intranasal DAILY 05/24/21 07/06/21 mcg/actuation nasal spray,suspension lisinopril 2.5 mg tablet 1 tab PO QAM 05/24/21 07/06/21 oxycodone-acetaminophen 5 mg-325 1 tab PO Q8H PRN pain 05/24/21 07/06/21 mg tablet topiramate 50 mg tablet 1 tab PO BEDTIME 05/24/21 07/06/21 fluticasone propionate 110 2 puff inhalation BID 08/24/21 mcg/actuation HFA aerosol inhaler (Flovent HFA) Previous Rx's Medication Instructions Recorded propranolol 20 mg tablet 20 mg PO BID #60 tabs 10/07/20 meloxicam 15 mg tablet 15 mg PO DAILY 30 days #30 tabs 02/05/22 cefuroxime axetil 500 mg tablet 500 mg PO BID #14 tabs 09/17/22 diphenoxylate-atropine 2.5 1 tab PO TID PRN diarrhea #7 tabs 09/17/22 mg-0.025 mg tablet (Lomotil) syenpexuto-feuvnlepkmuch-lpdlklpc 1 cap PO TID PRN headache #10 caps 12/12/22 50 mg-300 mg-40 mg capsule (Fioricet) cyclobenzaprine 10 mg tablet 10 mg PO TID PRN muscle spasm #14 12/17/22 tabs naproxen 250 mg tablet 250 mg PO Q12H PRN pain #10 tabs 12/17/22 nitrofurantoin 100 mg PO BID #14 caps 12/17/22 monohydrate/macrocrystals 100 mg capsule (Macrobid) omeprazole 20 mg capsule,delayed 40 mg (2 x 20 mg) PO BID #120 caps 03/26/23 release naloxegol 12.5 mg tablet (Movantik) 12.5 mg PO QAM #30 tabs 07/17/23 Allergies Allergy/AdvReac Type Severity Reaction Status Date / Time ENVIRONMENTAL Allergy Unknown HAYFEVER Uncoded 08/18/22 21:15 [facility] Past Medical History Medical History Asthma COPD (chronic obstructive pulmonary disease) Diabetes Hemiplegic migraine HLD (hyperlipidemia) HTN (hypertension) Migraines Sciatica Surgical History H/O: hysterectomy History of ear surgery History of esophagogastroduodenoscopy (EGD) Hx laparoscopic cholecystectomy Hx of colonoscopy Family History Family History Sister Migraine Social History Social History Household Members: None Housing: Apartment Do you presently have visiting nurse or other home services: No Alcohol intake: never Patient Tobacco Use Status: Current everyday Tobacco user Tobacco use type: Cigarette Cigarette Packs Per Day: 0.4 Cigarettes Per Day: 10 Years Smoked: 20 Second Hand Smoke Exposure: Yes service: No Current occupational status: other Course Course Course Narrative: This is an RME: Additional HPI, ROS, PE not included below will be deferred to primary provider. 53 y o female presenting for evaluation of epigastric pain ongoing for a few months. She was called and told her labs came back and that she has a bad pancreas , last labs available demonstrate lipase WNL in 12/19. Plan: Labs Discharge Plan Discharge Prescriptions: No Action omeprazole 20 mg capsule,delayed release(DR/EC) 40 mg PO BID Qty: 120 3RF Movantik 12.5 mg tablet 12.5 mg PO QAM Qty: 30 2RF ropinirole 1 mg Tablet 1 mg PO BEDTIME Lantus U-100 Insulin 100 unit/mL Solution 20 unit SUBCUT BEDTIME cetirizine [Zyrtec] 10 mg Tablet 10 mg PO DAILY prazosin 1 mg Capsule 1 mg PO BEDTIME glimepiride 1 mg Tablet 1 mg PO DAILY mirtazapine 45 mg Tablet 45 mg PO BEDTIME PRN (Reason: Insomnia) montelukast [Singulair] 10 mg Tablet 10 mg PO BEDTIME albuterol sulfate [ProAir HFA] 90 mcg/actuation Hfa Aerosol Inhaler 2 puff INHALATION QID PRN (Reason: Shortness Of Breath) bupropion HCl [Wellbutrin XL] 300 mg Tablet Extended Release 24 Hr 300 mg PO DAILY bupropion HCl [Wellbutrin XL] 150 mg Tablet Extended Release 24 Hr 150 mg PO DAILY Spiriva with HandiHaler 18 mcg Capsule, W/Inhalation Device 1 cap INHALATION DAILY duloxetine [Cymbalta] 60 mg Capsule,Delayed Release(Dr/Ec) 60 mg PO DAILY propranolol 20 mg tablet 20 mg PO BID Qty: 60 0RF Rx Instructions: Replaces metoprolol succinate. Lowers blood pressure and prevents migraines. fenofibrate micronized 134 mg capsule 1 tab PO QPM oxycodone-acetaminophen 5-325 mg tablet 1 tab PO Q8H PRN (Reason: pain) fluticasone propionate 50 mcg/actuation spray,suspension 2 spray intranasal DAILY lisinopril 2.5 mg tablet 1 tab PO QAM topiramate 50 mg tablet 1 tab PO BEDTIME nfdjvipzvx-bhwligbjoimar-rxlr [Fioricet] 50-300-40 mg capsule 1 cap PO TID PRN (Reason: headache) Qty: 10 0RF Rx Instructions: Do not take this medication with other sources of Tylenol including Percocet cefuroxime axetil 500 mg tablet 500 mg PO BID Qty: 14 0RF diphenoxylate-atropine [Lomotil] 2.5-0.025 mg tablet 1 tab PO TID PRN (Reason: diarrhea) Qty: 7 0RF naproxen 250 mg tablet 250 mg PO Q12H PRN (Reason: pain) Qty: 10 0RF cyclobenzaprine 10 mg tablet 10 mg PO TID PRN (Reason: muscle spasm) Qty: 14 0RF nitrofurantoin monohyd/m-cryst [Macrobid] 100 mg capsule 100 mg PO BID Qty: 14 0RF Rx Instructions: must administer with a meal/food Flovent HFA 110 mcg/actuation HFA aerosol inhaler 2 puff inhalation BID meloxicam 15 mg tablet 15 mg PO DAILY 30 Days Qty: 30 0RF
[2023-07-18 15:37] LABS: MANUAL DIFF FLAG NO
[2023-07-18 16:12] LABS: Alanine Aminotransferase 34 U/L (0-31); Albumin Level 4.4 g/dL (3.5-5.0); Alkaline Phosphatase 157 U/L (39-117); Anion Gap 13 (12-20); Aspartate Amino Transferase 31 U/L (5-31); Bilirubin Total 0.4 mg/dL (0.0-1.0); Blood Urea Nitrogen 14 mg/dL (9-16); Calcium 10.3 mg/dL (8.4-10.2); Carbon Dioxide 25 mmol/L (22-29); Chloride 104 mmol/L (96-108); Creatinine Clr Calc Pharmacy 74.3; Estimated Glomerular Filt Rate > 60; Glucose Random 168 mg/dL (60-115); Lipase 30 U/L (8-78); Potassium 4.4 mmol/L (3.3-5.1); Sodium 138 mmol/L (135-145); Total Protein 8.2 g/dL (6.5-8.0); Triglycerides 758 mg/dL (<150)
[2023-07-18 18:32] LABS: Basophils Percent Auto 0.5 % (0-2); Eosinophils Absolute Auto 0.2 X10*3/uL (0.0-0.4); Eosinophils Percent Auto 1.8 % (0-4); Hematocrit 39.6 % (37.0-47.0); Hemoglobin 13.8 g/dl (12.0-16.0); Imm Gran Abs Auto 0.02 X10*3/uL (0.00-0.03); Imm Gran Pct Auto 0.2 % (0.0-0.4); Lymphocytes Percent Auto 35.9 % (20-40); Mean Corpuscular HGB Conc 34.8 g/dl (31.0-35.0); Mean Corpuscular Hemoglobin 31.4 pg (27.0-33.0); Mean Corpuscular Volume 90.2 fL (80.0-98.0); Mean Platelet Volume 11.3 fL (9.4-12.3); Monocytes Absolute Auto 0.5 X10*3/uL (0.1-1.2); Monocytes Percent Auto 6.4 % (2-11); Neutrophils Absolute Auto 4.6 x10*3/uL (2.0-8.3); Neutrophils Percent Auto 55.2 % (45-73); Platelet Count 366 X10*3/uL (160-400); Red Blood Count 4.39 X10*6/uL (4.20-5.50); Red Cell Distribution Width 12.4 % (11.0-16.0); White Blood Count 8.3 X10*3/uL (4.8-10.8)
== END 2023-07-18 21:05 | disposition left against medical advice (07) ==
PROVIDERS: Physician Assistant; Emergency Provider Emergency Medicine; PCP Internal Medicine
DX: R10.13 Epigastric pain (principal); Z79.899 Other long term (current) drug therapy
CPT/HCPCS: 36415; 80053; 83690; 84478; 85025; 99281; 99283

== ENCOUNTER 2023-07-27 22:45 | Emergency (ER) | payer MEDICAID, SELFPAY ==
--- NOTE | ~2023-07-27 | CT_ITS ---
EXAMINATION: CT ABDOMEN AND PELVIS WITH CONTRAST CLINICAL INFORMATION: Right-sided abdominal pain COMPARISON: 12/17/2022 TECHNIQUE: Multidetector volumetric images were obtained from the superior aspect of the liver through the pubic symphysis following administration 85 mL of Omnipaque 350 intravenous contrast. Sagittal and coronal reformatted images were obtained on the technologist's workstation. Oral contrast: No This CT examination was performed using dose optimization techniques as appropriate, variously including the following: *Automated exposure control *Adjustment of mA and/or kV according to patient size (this includes techniques or standardized protocols for targeted exams where dose is matched to indication/reason for exam; i.e. extremities or head) *Use of iterative reconstruction technique DLP: 667 mGy-cm FINDINGS: LUNG BASES: The visualized lung bases are unremarkable. LIVER, GALLBLADDER, AND BILIARY TREE: The liver is enlarged, measuring approximately 25 cm in length. No focal hepatic lesion or biliary ductal dilatation is present. Patient is status post cholecystectomy. PANCREAS: Unremarkable. SPLEEN: Enlarged, measuring approximately 14.7 cm in the axial plane. ADRENAL GLANDS: Unremarkable. KIDNEYS AND URETERS: Bilateral nephrograms are symmetric. No hydronephrosis or obstructing calculus identified. Small bilateral hypoattenuating renal lesions favor cysts; no follow-up recommended. BLADDER: Mildly distended and grossly unremarkable. GASTROINTESTINAL TRACT: No evidence of bowel obstruction or significant wall thickening. The appendix is unremarkable. No free fluid or free air is seen. ABDOMINAL WALL: No significant hernia is appreciated. LYMPH NODES: Normal. VASCULAR: Moderate atherosclerotic calcification. PELVIC VISCERA: Patient is status post hysterectomy. OSSEOUS STRUCTURES: Chronic appearing changes at L4-L5. CT/CT abdomen pelvis w IV con IMPRESSION: No acute findings identified in the abdomen/pelvis. Redemonstrated hepatosplenomegaly.
[2023-07-27 22:51] VITALS: BP 154/85; PULSE 92; RESP 17; TEMP 36.4; O2SAT 98; BMI 32.8
[2023-07-27 23:41] LABS: Appearance Urine Cloudy; Color Urine Yellow; Glucose Urine UA Negative (Negative); Leukocyte Esterase Urine Large (3+) (Negative); Nitrite Urine Negative (Negative); Specific Gravity - Urine 1.025 (1.005-1.025); UMIC TRIGGER UACC YES; Urine Blood Negative (Negative); Urine Ketones Trace mg/dL (Negative); Urine Protein Trace mg/dL (Neg-Trace)
[2023-07-27 23:43] LABS: Alanine Aminotransferase 24 U/L (0-31); Albumin Level 3.9 g/dL (3.5-5.0); Alkaline Phosphatase 133 U/L (39-117); Anion Gap 15 (12-20); Aspartate Amino Transferase 20 U/L (5-31); Bilirubin Direct 0.1 mg/dL (0.0-0.5); Bilirubin Total 0.3 mg/dL (0.0-1.0); Blood Urea Nitrogen 15 mg/dL (9-16); Calcium 9.6 mg/dL (8.4-10.2); Carbon Dioxide 20 mmol/L (22-29); Chloride 105 mmol/L (96-108); Creatinine Clr Calc Pharmacy 80.5; Estimated Glomerular Filt Rate > 60; Glucose Random 223 mg/dL (60-115); Lipase 39 U/L (8-78); Potassium 3.9 mmol/L (3.3-5.1); Sodium 136 mmol/L (135-145); Total Protein 7.4 g/dL (6.5-8.0)
[2023-07-27 23:54] LABS: Bacteria Urine 3+ (None Seen); Calcium Oxalate Crystals Urine Present; Hyaline Casts Urine 0-2 /LPF (0-2); UACC Culture Trigger YES; WBC Urine >50 /HPF (0-5)
[2023-07-28] VITALS: BP 164/91; PULSE 86; RESP 16; TEMP 37.2; O2SAT 97
[2023-07-28 00:25] LABS: MANUAL DIFF FLAG NO
[2023-07-28 00:27] LABS: Basophils Percent Auto 0.3 % (0-2); Eosinophils Absolute Auto 0.2 X10*3/uL (0.0-0.4); Eosinophils Percent Auto 2.3 % (0-4); Hematocrit 35.8 % (37.0-47.0); Hemoglobin 12.5 g/dl (12.0-16.0); Imm Gran Abs Auto 0.02 X10*3/uL (0.00-0.03); Imm Gran Pct Auto 0.2 % (0.0-0.4); Lymphocytes Absolute Auto 3.1 X10*3/uL (1.2-4.9); Lymphocytes Percent Auto 33.3 % (20-40); Mean Corpuscular HGB Conc 34.9 g/dl (31.0-35.0); Mean Corpuscular Hemoglobin 31.1 pg (27.0-33.0); Mean Corpuscular Volume 89.1 fL (80.0-98.0); Monocytes Absolute Auto 0.6 X10*3/uL (0.1-1.2); Monocytes Percent Auto 6.3 % (2-11); Neutrophils Absolute Auto 5.4 x10*3/uL (2.0-8.3); Neutrophils Percent Auto 57.6 % (45-73); Platelet Count 302 X10*3/uL (160-400); Red Blood Count 4.02 X10*6/uL (4.20-5.50); Red Cell Distribution Width 12.4 % (11.0-16.0); White Blood Count 9.3 X10*3/uL (4.8-10.8)
[2023-07-28] MEDS: 0.9 % Sodium Chloride 1,000 ML 999 ML IV (01:13)
[2023-07-28] MEDS: Morphine Sulfate 4 MG/ML CARTRIDGE IVPUSH ×2 (01:13→04:24)
[2023-07-28] MEDS: ondansetron HCL 4 MG/2 ML VIAL IVPUSH (01:13)
[2023-07-28] MEDS: iohexoL 350 MG/ML 100 ML INFUS..BTL IV (01:50)
[2023-07-28 02:04] VITALS: BP 163/91; PULSE 80; RESP 18; TEMP 36.6; O2SAT 96
--- NOTE | 2023-07-28 02:56 | ED.ABDPAIN ---
HPI - Abdominal Pain General Chief Complaint: Abdominal Pain Stated Complaint: Abnormal labs, seen at a clinic a week ago Time Seen by Provider: 07/28/23 00:00 Source: patient Mode of arrival: ambulatory Limitations: language barrier (Macedonian speaking only, crossing guard used) History of Present Illness HPI narrative: 53-year-old female who presents emergency department for evaluation of abdominal pain times 1-2 months. The patient states that she has had constant, daily abdominal pain for the past 1-2 months. She points to her mid abdomen when asked to localize the pain. The pain does radiate to her right side but not to her flank. She states the pain is a constant, burning sensation with a bloated feeling. The pain is 8/10 at its worst. Patient states that immediately after eating food this exacerbates the pain. Patient states she has had nausea and occasional vomiting. Patient does have a history of gastritis and takes omeprazole 40 mg mg daily but this has not relieve her pain. Related Data Home Medications Medication Instructions Recorded Confirmed albuterol sulfate 90 mcg/actuation 2 puff inhalation QID PRN 10/06/20 07/06/21 aerosol inhaler (ProAir HFA) Shortness Of Breath bupropion HCl 150 mg 24 hr tablet, 150 mg PO DAILY 10/06/20 07/06/21 extended release (Wellbutrin XL) bupropion HCl 300 mg 24 hr tablet, 300 mg PO DAILY 10/06/20 07/06/21 extended release (Wellbutrin XL) cetirizine 10 mg tablet (Zyrtec) 10 mg PO DAILY 10/06/20 07/06/21 duloxetine 60 mg capsule,delayed 60 mg PO DAILY 10/06/20 07/06/21 release (Cymbalta) glimepiride 1 mg tablet 1 mg PO DAILY 10/06/20 07/06/21 insulin glargine 100 unit/mL 20 unit subcut BEDTIME 10/06/20 07/11/21 subcutaneous solution (Lantus U-100 Insulin) mirtazapine 45 mg tablet 45 mg PO BEDTIME PRN Insomnia 10/06/20 07/06/21 montelukast 10 mg tablet 10 mg PO BEDTIME 10/06/20 07/06/21 (Singulair) prazosin 1 mg capsule 1 mg PO BEDTIME 10/06/20 07/06/21 ropinirole 1 mg tablet 1 mg PO BEDTIME 10/06/20 07/06/21 tiotropium bromide 18 mcg capsule 1 cap inhalation DAILY 10/06/20 07/06/21 with inhalation device (Spiriva with HandiHaler) fenofibrate micronized 134 mg 1 tab PO QPM 05/24/21 07/06/21 capsule fluticasone propionate 50 2 spray intranasal DAILY 05/24/21 07/06/21 mcg/actuation nasal spray,suspension lisinopril 2.5 mg tablet 1 tab PO QAM 05/24/21 07/06/21 oxycodone-acetaminophen 5 mg-325 1 tab PO Q8H PRN pain 05/24/21 07/06/21 mg tablet topiramate 50 mg tablet 1 tab PO BEDTIME 05/24/21 07/06/21 fluticasone propionate 110 2 puff inhalation BID 08/24/21 mcg/actuation HFA aerosol inhaler (Flovent HFA) Previous Rx's Medication Instructions Recorded propranolol 20 mg tablet 20 mg PO BID #60 tabs 10/07/20 meloxicam 15 mg tablet 15 mg PO DAILY 30 days #30 tabs 02/05/22 cefuroxime axetil 500 mg tablet 500 mg PO BID #14 tabs 09/17/22 diphenoxylate-atropine 2.5 1 tab PO TID PRN diarrhea #7 tabs 09/17/22 mg-0.025 mg tablet (Lomotil) xisqwxpeca-dfntkszcylklo-oscyabqs 1 cap PO TID PRN headache #10 caps 12/12/22 50 mg-300 mg-40 mg capsule (Fioricet) cyclobenzaprine 10 mg tablet 10 mg PO TID PRN muscle spasm #14 12/17/22 tabs naproxen 250 mg tablet 250 mg PO Q12H PRN pain #10 tabs 12/17/22 nitrofurantoin 100 mg PO BID #14 caps 12/17/22 monohydrate/macrocrystals 100 mg capsule (Macrobid) naloxegol 12.5 mg tablet (Movantik) 12.5 mg PO QAM #30 tabs 07/17/23 omeprazole 20 mg capsule,delayed 40 mg (2 x 20 mg) PO BID #360 caps 07/22/23 release aluminum hydrox-magnesium carb 254 10 ml PO QID PRN dyspepsia #355 mL 07/28/23 mg-237.5 mg/5 mL oral suspension (Gaviscon Extra Strength) Allergies Allergy/AdvReac Type Severity Reaction Status Date / Time ENVIRONMENTAL Allergy Unknown HAYFEVER Uncoded 08/18/22 21:15 Review of Systems Review of Systems Yes all other systems are reviewed and are negative [facility], [facility] Past Medical History [facility] Narrative: Social history: She does smoke cigarettes. She denies tobacco and alcohol use Medical History Hemiplegic migraine HLD (hyperlipidemia) HTN (hypertension) Migraines Sciatica Asthma COPD (chronic obstructive pulmonary disease) Diabetes Surgical History Hx of colonoscopy History of esophagogastroduodenoscopy (EGD) Hx laparoscopic cholecystectomy History of ear surgery H/O: hysterectomy Family History Family History Sister Migraine Social History Social History Household Members: None Housing: Apartment Do you presently have visiting nurse or other home services: No Alcohol intake: never Patient Tobacco Use Status: Current everyday Tobacco user Tobacco use type: Cigarette Cigarette Packs Per Day: 0.4 Cigarettes Per Day: 10 Years Smoked: 20 Smoked in Last 30 Days: Yes Second Hand Smoke Exposure: Yes Use of substances other than those prescribed or required for medical reasons: No Advance Directives: No Advance Directives Information Provided: No service: No Current occupational status: other Physical Exam ED Vital Signs: Vital Signs - 24 hr 07/27/23 22:51 07/28/23 00:00 07/28/23 02:04 Temperature 97.6 F 98.9 F 97.8 F Pulse Rate 92 86 80 Respiratory Rate 17 16 18 Blood Pressure 154/85 H 164/91 H 163/91 H Pulse Oximetry 98 97 96 Oxygen Delivery Method Room Air Room Air Room Air 07/28/23 04:27 Temperature Pulse Rate 86 Respiratory Rate 16 Blood Pressure 142/75 H Pulse Oximetry 98 Oxygen Delivery Method Room Air BMI result Body Mass Index 32.8 Vital signs revealed an elevated blood pressure 154/85 otherwise unremarkable Exam: General: Awake, alert in no distress Head: Normocephalic, atraumatic EENT: PERRL, Lids normal, sclera normal, conjunctiva normal, nose normal , ears normal, throat without erythema or exudates Neck: Supple, no adenopathy, trachea midline and nontender Lung: breath sounds symmetric, no wheezing, rales or rhonchi Chest: symmetric movement, nontender Heart: regular rate and rhythm, normal S1, S2 no murmurs or rubs Abdomen: soft, moderate epigastric and right upper quadrant tenderness, mild diffuse tenderness, normal bowel sounds Back: no vertebral tenderness, no CVAT Extremities: no deformities, moves all extremities symmetrically Skin: no rashes, no lesion, normal color and warmth Neuro: Awake, alert, oriented, normal speech, cranial nerves intact, moves all extremities symmetrically Psych: Pleasant, cooperative Medical Decision Making Medical Decision Making MDM Narrative: 53-year-old female history diabetes mellitus, hypertension, asthma, COPD, gastritis who presents emergency department for evaluation 1-2 months of constant, daily abdominal pain across her mid abdomen. Patient is on omeprazole 40 mg daily with no relief for pain. She was told by her provider that she had a pancreatic abnormality but in reviewing her previous labs, her lipase has been normal. Patient has had high triglycerides but it is unclear to me if these are fasting values. On her exam today she does have right upper quadrant, midepigastric moderate tenderness with diffuse mild tenderness. I ordered a CBC, CMP, lipase, urinalysis, CT scan of the abdomen pelvis . The patient's pain was treated with morphine 4 mg IV and Zofran 4 mg IV. I also ordered normal saline x1 L 0421: Patient's laboratory evaluation was unremarkable the patient's CT scan of the abdomen pelvis did not reveal acute cause for pain. Patient's pain is most likely caused by gastritis I did discuss this with her. She was advised to continue taking her omeprazole 40 mg daily She was prescribed extra-strength Gaviscon 10 cc 4 times a day to see if this helps her pain. 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 Patient did get some improvement after the above treatment but did require 2nd dose of morphine 4 mg IV. Differential Diagnosis Differential Diagnoses: The differential diagnosis associated with the presentation includes Differential diagnosis includes was not limited to pancreatitis, gastritis, esophagitis, nonspecific abdominal pain Admission/Observation Consideration of admission/observation: Escalation of care including admission/observation considered Lab Data MDM Lab Attestation statement: I reviewed the patient's lab results. Patient's laboratory evaluation revealed mild anemia with an H&H of 12.5 and 35, elevated glucose 233. Elevated alk phos 133. Normal LFTs. Normal lipase. 07/28/23 00:20 07/27/23 23:20 Labs: Lab Results 07/27/23 07/27/23 07/28/23 Range/Units 23:20 23:32 00:20 WBC 9.3 (4.8-10.8) X10*3/uL RBC 4.02 L (4.20-5.50) X10*6/uL Hgb 12.5 (12.0-16.0) g/dl Hct 35.8 L (37.0-47.0) % MCV 89.1 (80.0-98.0) fL MCH 31.1 (27.0-33.0) pg MCHC 34.9 (31.0-35.0) g/dl RDW 12.4 (11.0-16.0) % Plt Count 302 (160-400) X10*3/uL MPV 10.0 (9.4-12.3) fL Immature Gran % (Auto) 0.2 (0.0-0.4) % Neut % (Auto) 57.6 (45-73) % Lymph % (Auto) 33.3 (20-40) % [place] % (Auto) 6.3 (2-11) % Eos % (Auto) 2.3 (0-4) % Baso % (Auto) 0.3 (0-2) % Lymph # (Auto) 3.1 (1.2-4.9) X10*3/uL [place] # (Auto) 0.6 (0.1-1.2) X10*3/uL Eos # (Auto) 0.2 (0.0-0.4) X10*3/uL Baso # (Auto) 0.0 (0.0-0.2) X10*3/uL Abs Immat Gran (auto) 0.02 (0.00-0.03) X10*3/uL Absolute Neuts (auto) 5.4 (2.0-8.3) x10*3/uL Absolute Nucleated RBC 0.000 (0.0-0.012) X10*3/uL Nucleated RBC % (auto) 0.0 (0.0-0.2) /100WBC Sodium 136 (135-145) mmol/L Potassium 3.9 (3.3-5.1) mmol/L Chloride 105 (96-108) mmol/L Carbon Dioxide 20 L (22-29) mmol/L Anion Gap 15 (12-20) BUN 15 (9-16) mg/dL Creatinine 0.86 (0.5-1.4) mg/dL Estim Creat Clear Calc 80.5 Estimated GFR > 60 Random Glucose 223 H (60-115) mg/dL Calcium 9.6 D (8.4-10.2) mg/dL Total Bilirubin 0.3 (0.0-1.0) mg/dL Direct Bilirubin 0.1 (0.0-0.5) mg/dL AST 20 (5-31) U/L ALT 24 (0-31) U/L Alkaline Phosphatase 133 H (39-117) U/L Total Protein 7.4 (6.5-8.0) g/dL Albumin 3.9 (3.5-5.0) g/dL Lipase 39 (8-78) U/L Urine Color Yellow Urine Appearance Cloudy Urine pH 6.0 (5.0-9.0) Ur Specific [place] 1.025 (1.005-1.025) Urine Protein Trace (Neg-Trace) mg/dL Urine Glucose (UA) Negative (Negative) mg/dL Urine Ketones Trace (Negative) mg/dL Urine Blood Negative (Negative) Urine Nitrite Negative (Negative) Ur Leukocyte Esterase Large (3+) H (Negative) Urine RBC 6-10 H (0-2) /HPF Urine WBC >50 H (0-5) /HPF Ur Squamous Epith Cells 11-20 (0-2) /HPF Calcium Oxalate Crystal Present Urine Bacteria 3+ (None Seen) Hyaline Casts 0-2 (0-2) /LPF Radiology Impression Discussion of test interpretation with radiology: I have reviewed the radiologist's reading. Radiologist Impression: CT abdomen pelvis w IV con IMPRESSION: No acute findings identified in the abdomen/pelvis. Redemonstrated hepatosplenomegaly. Dictated By: Paolo Colon MD Medications Administered Discontinued Medications Generic Name Dose Route Start Last Admin Trade Name Tyree PRN Reason Stop Dose Admin Sodium Chloride 1,000 mls @ 999 mls/hr 07/28/23 00:38 07/28/23 03:44 Ns IV 07/28/23 01:38 Infused .Q1H1M STA Infusion Iohexol 100 ml 07/28/23 01:50 07/28/23 01:50 Iohexol 350 Mg/Ml 100 Ml Infus..Btl IV 07/28/23 01:51 100 ml ONCE ONE Administration Morphine Sulfate 4 mg 07/28/23 00:38 07/28/23 01:13 Morphine Sulfate 4 Mg/Ml Cartridge IVPUSH 07/28/23 00:39 4 mg ONCE STA Administration Protocol Morphine Sulfate 4 mg 07/28/23 04:20 07/28/23 04:24 Morphine Sulfate 4 Mg/Ml Cartridge IVPUSH 07/28/23 04:21 4 mg ONCE STA Administration Protocol Ondansetron HCl 4 mg 07/28/23 00:38 07/28/23 01:13 Ondansetron Hcl 4 Mg/2 Ml Vial IVPUSH 07/28/23 00:39 4 mg ONCE ONE Administration Discharge Plan Discharge Clinical Impression: Gastritis Abdominal pain Qualifiers: Abdominal location: epigastric Qualified Code(s): R10.13 - Epigastric pain Patient Disposition: Home, Self-Care Instructions: Gastritis (ED) Additional Instructions: Your blood work was normal. Your pancreas numbers were normal. The CT scan of your abdomen pelvis did not reveal any significant abnormalities, your pancreas looks normal on the CT scan. In reviewing your previous lab values he did have an elevated triglyceride however this does not count unless this was tested after fasting for 10-12 hours Your doctor should repeat a fasting cholesterol and triglyceride level to make sure that you do not have high triglycerides but this should be done after fasting 10-12 hours. Continue taking your omeprazole 40 mg once a day. Take extra-strength Gaviscon 10 mL (2 tsp) 30 minutes before meals3 times a day and at bed for the next week then as needed for abdominal pain. Follow-up with your doctor in 2 days. Please return to the emergency department if your symptoms get worse or if you develop any symptoms that are concerning to you. Prescriptions: New Gaviscon Extra Strength 254-237.5 mg/5 mL suspension 10 ml PO QID PRN (Reason: dyspepsia) Qty: 355 0RF No Action Movantik 12.5 mg tablet 12.5 mg PO QAM Qty: 30 2RF omeprazole 20 mg capsule,delayed release(DR/EC) 40 mg PO BID Qty: 360 0RF ropinirole 1 mg Tablet 1 mg PO BEDTIME Lantus U-100 Insulin 100 unit/mL Solution 20 unit SUBCUT BEDTIME cetirizine [Zyrtec] 10 mg Tablet 10 mg PO DAILY prazosin 1 mg Capsule 1 mg PO BEDTIME glimepiride 1 mg Tablet 1 mg PO DAILY mirtazapine 45 mg Tablet 45 mg PO BEDTIME PRN (Reason: Insomnia) montelukast [Singulair] 10 mg Tablet 10 mg PO BEDTIME albuterol sulfate [ProAir HFA] 90 mcg/actuation Hfa Aerosol Inhaler 2 puff INHALATION QID PRN (Reason: Shortness Of Breath) bupropion HCl [Wellbutrin XL] 300 mg Tablet Extended Release 24 Hr 300 mg PO DAILY bupropion HCl [Wellbutrin XL] 150 mg Tablet Extended Release 24 Hr 150 mg PO DAILY Spiriva with HandiHaler 18 mcg Capsule, W/Inhalation Device 1 cap INHALATION DAILY duloxetine [Cymbalta] 60 mg Capsule,Delayed Release(Dr/Ec) 60 mg PO DAILY propranolol 20 mg tablet 20 mg PO BID Qty: 60 0RF Rx Instructions: Replaces metoprolol succinate. Lowers blood pressure and prevents migraines. fenofibrate micronized 134 mg capsule 1 tab PO QPM oxycodone-acetaminophen 5-325 mg tablet 1 tab PO Q8H PRN (Reason: pain) fluticasone propionate 50 mcg/actuation spray,suspension 2 spray intranasal DAILY lisinopril 2.5 mg tablet 1 tab PO QAM topiramate 50 mg tablet 1 tab PO BEDTIME yujctrcfmx-yqknyuaekzzku-ljjb [Fioricet] 50-300-40 mg capsule 1 cap PO TID PRN (Reason: headache) Qty: 10 0RF Rx Instructions: Do not take this medication with other sources of Tylenol including Percocet cefuroxime axetil 500 mg tablet 500 mg PO BID Qty: 14 0RF diphenoxylate-atropine [Lomotil] 2.5-0.025 mg tablet 1 tab PO TID PRN (Reason: diarrhea) Qty: 7 0RF naproxen 250 mg tablet 250 mg PO Q12H PRN (Reason: pain) Qty: 10 0RF cyclobenzaprine 10 mg tablet 10 mg PO TID PRN (Reason: muscle spasm) Qty: 14 0RF nitrofurantoin monohyd/m-cryst [Macrobid] 100 mg capsule 100 mg PO BID Qty: 14 0RF Rx Instructions: must administer with a meal/food Flovent HFA 110 mcg/actuation HFA aerosol inhaler 2 puff inhalation BID meloxicam 15 mg tablet 15 mg PO DAILY 30 Days Qty: 30 0RF Print Language: Macedonian
--- NOTE | 2023-07-28 03:44 | PC.NURSE ---
pt reporting 7/10 abd. pain; pt to bathroom in attempt for bm.
[2023-07-28 04:27] VITALS: BP 142/75; PULSE 86; RESP 16; O2SAT 98
[2023-07-28 04:56] VITALS: BP 121/71; PULSE 81; RESP 16; O2SAT 96
== END 2023-07-28 05:11 | disposition home or self-care (01) ==
PROVIDERS: Emergency Provider Emergency Medicine Emergency Medical Services; PCP Internal Medicine
DX: K29.70 Gastritis, unspecified, without bleeding (principal); R10.13 Epigastric pain; R10.11 Right upper quadrant pain; R11.2 Nausea with vomiting, unspecified; F17.210 Nicotine dependence, cigarettes, uncomplicated; Z71.6 Tobacco abuse counseling; Z79.899 Other long term (current) drug therapy
CPT/HCPCS: 36415; 74177; 80048; 80076; 81001; 83690; 85025; 87086; 96361; 96374; 96375; 96376; 99284; 99285; J2270; J2405; Q9967

== ENCOUNTER 2024-03-16 13:46 | Emergency (ER) | payer MEDICAID, SELFPAY ==
--- NOTE | ~2024-03-16 | XR_ITS ---
EXAMINATION: XR FOOT, LEFT CLINICAL INFORMATION: Pain in the left foot COMPARISON: Left foot x-rays of 04/15/2019 TECHNIQUE: AP, lateral, and oblique views of the left foot. FINDINGS: Mild diffuse osteopenia is suspected. Prominent plantar and posterior calcaneal spurs are noted at the insertion of plantar aponeurosis and Achilles tendon. No focal erosion. No evidence of acute fracture or dislocation. Mild hallux longus deformity is noted at the first MTP joint with minimal degenerative changes. No soft tissue calcifications. No evidence of soft tissue air or radiopaque foreign body. XR/XR foot LT min 3V IMPRESSION: Mild osteopenia. Plantar and posterior left calcaneal spurs. No acute osseous abnormality.
--- NOTE | ~2024-03-16 | XR_ITS ---
EXAMINATION: XR LUMBOSACRAL SPINE CLINICAL INFORMATION: Back pain radiating down to the left leg COMPARISON: Selected images of the abdomen and pelvic CT scan of 07/28/2023 TECHNIQUE: Three views of the lumbosacral spine. FINDINGS: There are 5 lumbar-type nonrib-bearing vertebrae. Osteopenia in the visualized spine. Vertebral body heights and alignment are maintained. Intervertebral disc spacer is again noted at L4-L5. Remainder of the intervertebral disc spaces are preserved. Multilevel minimal anterior endplate hypertrophic spurring is noted. Surgical clips are noted projecting over the left sacrum. Post cholecystectomy clips in the right upper abdominal quadrant are redemonstrated. Scattered aortic calcifications. No suspicious lytic or blastic osseous lesions are seen. XR/XR lumbar spine 2-3V IMPRESSION: No evidence of acute compression fracture or suspicious osseous lesion. Postsurgical changes at L4-L5. Osteopenia. Mild spondylosis.
[2024-03-16 14:31] VITALS: BP 129/77; PULSE 92; RESP 16; TEMP 36.8; O2SAT 97; BMI 33.0
--- NOTE | 2024-03-16 14:31 | ED_ITS ---
HPI - General Adult General Chief complaint: Back Pain/Injury Stated complaint: L foot pain Time Seen by Provider: 03/16/24 15:04 Source: patient and staff interpreter Mode of arrival: ambulatory Limitations: language barrier (spanish interpreter used) History of Present Illness ED Provider: Lois Basurto PA-C HPI narrative: 53 yo vietnamese-speaking female with PMH significant for migraines, OA of left knee, sciatica, asthma, COPD, DM, HLD, and HTN, who presents with complaints of left heel, leg, and lower back pain. staff interpreter used. She reports a history of L4-L5 surgery approximately 7 years ago. She describes the pain began one week ago and is worsening. She denies trauma or inciting event. Denies stepping on any object. States the pain is constant but she is getting intermit tent shooting pain up her leg. States it feels like ants are crawling. Reports last taking Tylenol yesterday with no relief. Pain worse with movement and ambulation. Difficulty bearing weight on left foot. She endorses associated headaches. She is worried about her glucose levels. She states she is compliant with medication. Denies chest pain or SOB at this time. MD complaint: Left lower extremity pain Onset (ago): week(s) Location: left and lower extremity Radiation: back and extremity Severity: severe Quality: burning and stabbing Relieving factors: none Exacerbating factors: movement Associated symptoms: headaches Related Data Home Medications ?Medication ?Instructions ?Recorded ?Confirmed albuterol sulfate 90 mcg/actuation 2 puff inhalation QID PRN 10/06/20 07/06/21 aerosol inhaler (ProAir HFA) Shortness Of Breath bupropion HCl 150 mg 24 hr tablet, 150 mg PO DAILY 10/06/20 07/06/21 extended release (Wellbutrin XL) bupropion HCl 300 mg 24 hr tablet, 300 mg PO DAILY 10/06/20 07/06/21 extended release (Wellbutrin XL) cetirizine 10 mg tablet (Zyrtec) 10 mg PO DAILY 10/06/20 07/06/21 duloxetine 60 mg capsule,delayed 60 mg PO DAILY 10/06/20 07/06/21 release (Cymbalta) glimepiride 1 mg tablet 1 mg PO DAILY 10/06/20 07/06/21 insulin glargine 100 unit/mL 20 unit subcut BEDTIME 10/06/20 07/11/21 subcutaneous solution (Lantus U-100 Insulin) mirtazapine 45 mg tablet 45 mg PO BEDTIME PRN Insomnia 10/06/20 07/06/21 montelukast 10 mg tablet 10 mg PO BEDTIME 10/06/20 07/06/21 (Singulair) prazosin 1 mg capsule 1 mg PO BEDTIME 10/06/20 07/06/21 ropinirole 1 mg tablet 1 mg PO BEDTIME 10/06/20 07/06/21 tiotropium bromide 18 mcg capsule 1 cap inhalation DAILY 10/06/20 07/06/21 with inhalation device (Spiriva with HandiHaler) fenofibrate micronized 134 mg 1 tab PO QPM 05/24/21 07/06/21 capsule fluticasone propionate 50 2 spray intranasal DAILY 05/24/21 07/06/21 mcg/actuation nasal spray,suspension lisinopril 2.5 mg tablet 1 tab PO QAM 05/24/21 07/06/21 oxycodone-acetaminophen 5 mg-325 1 tab PO Q8H PRN pain 05/24/21 07/06/21 mg tablet topiramate 50 mg tablet 1 tab PO BEDTIME 05/24/21 07/06/21 fluticasone propionate 110 2 puff inhalation BID 08/24/21 mcg/actuation HFA aerosol inhaler (Flovent HFA) Previous Rx's ?Medication ?Instructions ?Recorded propranolol 20 mg tablet 20 mg PO BID #60 tabs 10/07/20 meloxicam 15 mg tablet 15 mg PO DAILY 30 days #30 tabs 02/05/22 cefuroxime axetil 500 mg tablet 500 mg PO BID #14 tabs 09/17/22 diphenoxylate-atropine 2.5 1 tab PO TID PRN diarrhea #7 tabs 09/17/22 mg-0.025 mg tablet (Lomotil) ryzilaegoz-hxavgttzsxqxw-anxofbyh 1 cap PO TID PRN headache #10 caps 12/12/22 50 mg-300 mg-40 mg capsule (Fioricet) cyclobenzaprine 10 mg tablet 10 mg PO TID PRN muscle spasm #14 12/17/22 tabs naproxen 250 mg tablet 250 mg PO Q12H PRN pain #10 tabs 12/17/22 nitrofurantoin 100 mg PO BID #14 caps 12/17/22 monohydrate/macrocrystals 100 mg capsule (Macrobid) omeprazole 20 mg capsule,delayed 40 mg (2 x 20 mg) PO BID #360 caps 07/22/23 release aluminum hydrox-magnesium carb 254 10 ml PO QID PRN dyspepsia #355 mL 07/28/23 mg-237.5 mg/5 mL oral suspension (Gaviscon Extra Strength) naloxegol 12.5 mg tablet (Movantik) 12.5 mg PO QAM 90 days #90 tabs 08/08/23 cyclobenzaprine 10 mg tablet 10 mg PO TID PRN muscle spasm #10 03/16/24 tabs prednisone 20 mg tablet 40 mg (2 x 20 mg) PO DAILY #10 tabs 03/16/24 Allergies Allergy/AdvReac Type Severity Reaction Status Date / Time ENVIRONMENTAL Allergy Mild Dry Eye Uncoded 03/16/24 14:34 Review of Systems Review of Systems: Yes all other systems are reviewed and are negative PMFSH Past Medical History Medical History Hemiplegic migraine HLD (hyperlipidemia) HTN (hypertension) Migraines Sciatica Asthma COPD (chronic obstructive pulmonary disease) Diabetes Surgical History Hx of colonoscopy History of esophagogastroduodenoscopy (EGD) Hx laparoscopic cholecystectomy History of ear surgery H/O: hysterectomy Family History Family History Sister Migraine Social History Social History Household Members: None Housing: Apartment Do you presently have visiting nurse or other home services: No Alcohol intake: never Patient Tobacco Use Status: Current everyday Tobacco user Tobacco use type: Cigarette Cigarette Packs Per Day: 0.4 Cigarettes Per Day: 10 Years Smoked: 20 Second Hand Smoke Exposure: Yes Advance Directives: No Advance Directives Information Provided: No service: No Current occupational status: other Physical Exam ED Vital Signs: Vital Signs - 24 hr 03/16/24 14:31 03/16/24 16:48 03/16/24 17:51 Temperature 98.3 F 98 F 98 F Pulse Rate 92 77 71 Respiratory Rate 16 19 19 Blood Pressure 129/77 148/82 H 143/80 H Pulse Oximetry 97 97 97 Oxygen Delivery Method Room Air Room Air Room Air BMI result Body Mass Index 33.0 Appearance: Alert. Oriented X3. No acute distress. Uncomfortable appearing in ED stretcher. Head: normocephalic, atraumatic. Eyes: Pupils equal, round and reactive to light. ENT: Pharynx normal. Neck: Normal inspection. Neck supple. CVS: Normal heart rate and rhythm. Pulses normal. Respiratory: No respiratory distress. Breath sounds normal. Abdomen: Soft and nontender. Skin: Skin warm and dry. Normal skin color. Normal skin turgor. No rashes. Extremities: Tenderness to palpation of left calcaneus, calf, and posterior thigh. No erythema or edema. Inspection of left calcaneus unremarkable. Neuro/psych: Oriented X 3. No motor deficit. No sensory deficit. CN II-XII intact. Normal speech and cognition. Course Course Course Narrative: This is a Rapid Medical Examination (RME) performed by Taryn Riddle PA-C in triage. Full HPI, ROS, assessment and treatment plan per primary provider in the Main ED. 53 yo female hx of GERD, DM, gastroparesis, asthma, migraines, sciatic, HDL, HTN here for eval of left low back pain radiating down her leg into her foot x3 days. pain is a burning/ stabbing sensation. not taking otc pain meds at home stating i dont have any . Denies injury/ trauma. hx of spinal surgery years ago. no recent follow up with surgeon. Endorses THORNTON that feels like her typical migraine. she states she does not take anything for her migraines. requesting blood sugar be tested. exam nonfocal. perrla. No midline spinous tenderness or step off deformity. No paraspinal muscle tenderness. Plan: imaging ordered. Medications Administered Discontinued Medications Generic Name Dose Route Start Last Admin Trade Name Freq PRN Reason Stop Dose Admin Acetaminophen 975 mg 03/16/24 16:30 03/16/24 16:40 Acetaminophen 325 Mg Tablet PO 03/16/24 16:31 975 mg ONCE ONE Administration Cyclobenzaprine HCl 10 mg 03/16/24 16:31 03/16/24 16:39 Cyclobenzaprine Hcl 10 Mg Tablet PO 03/16/24 16:32 10 mg ONCE ONE Administration Ibuprofen 600 mg 03/16/24 16:30 03/16/24 16:40 Ibuprofen 600 Mg Tablet PO 03/16/24 16:31 Not Given ONCE ONE Medical Decision Making Medical Decision Making [facility] Narrative: 53 yo vietnamese-speaking female with PMH significant for migraines, OA of left knee, sciatica, asthma, COPD, DM, HLD, and HTN, who presents with complaints of left heel, leg, and lower back pain. She reports a history of L4-L5 surgery approximately 7 years ago. HPI and physical exam as noted above. X-ray show calcaneal spur. staffing coordinator used to discuss results and management. stable for discharge home with PCP follow up Differential Diagnosis Differential Diagnoses: The differential diagnosis associated with the presentation includes Sciatica, calcaneus spur, plantar fasciitis, lumbar disc herniation. Low suspicion for DVT. Lab Data [facility] Lab Attestation statement: I reviewed the patient's lab results. Labs: Lab Results 03/16/24 Range/Units 14:51 POC Glucose 264 H (60-115) mg/dL Independent Interpretation I performed an independent interpretation of an: Plain X-Ray Interpretation: No acute findings of lumbar x-ray. Plantar and posterior left calcaneal spurs. Radiology Impression Discussion of test interpretation with radiology: I have reviewed the radiologist's reading. Radiologist Impression: EXAMINATION: XR LUMBOSACRAL SPINE CLINICAL INFORMATION: Back pain radiating down to the left leg COMPARISON: Selected images of the abdomen and pelvic CT scan of 07/28/2023 TECHNIQUE: Three views of the lumbosacral spine. FINDINGS: There are 5 lumbar-type nonrib-bearing vertebrae. Osteopenia in the visualized spine. Vertebral body heights and alignment are maintained. Intervertebral disc spacer is again noted at L4-L5. Remainder of the intervertebral disc spaces are preserved. Multilevel minimal anterior endplate hypertrophic spurring is noted. Surgical clips are noted projecting over the left sacrum. Post cholecystectomy clips in the right upper abdominal quadrant are redemonstrated. Scattered aortic calcifications. No suspicious lytic or blastic osseous lesions are seen. XR/XR lumbar spine 2-3V IMPRESSION: No evidence of acute compression fracture or suspicious osseous lesion. Postsurgical changes at L4-L5. Osteopenia. Mild spondylosis. EXAMINATION: XR FOOT, LEFT CLINICAL INFORMATION: Pain in the left foot COMPARISON: Left foot x-rays of 04/15/2019 TECHNIQUE: AP, lateral, and oblique views of the left foot. FINDINGS: Mild diffuse osteopenia is suspected. Prominent plantar and posterior calcaneal spurs are noted at the insertion of plantar aponeurosis and Achilles tendon. No focal erosion. No evidence of acute fracture or dislocation. Mild hallux longus deformity is noted at the first MTP joint with minimal degenerative changes. No soft tissue calcifications. No evidence of soft tissue air or radiopaque foreign body. XR/XR foot LT min 3V IMPRESSION: Mild osteopenia. Plantar and posterior left calcaneal spurs. No acute osseous abnormality. External Record Review External record reviewed: Inpatient record, Office record and Outpatient record Prescription Management I considered prescription management with: Pain Medication Chronic Conditions Patient?s care impacted by: Other (migraines) Critical Care Time Critical Care Time Critical Care Time: No Discharge Plan Discharge Clinical Impression: Calcaneal spur of left foot, Sciatica Patient Disposition: Home, Self-Care Instructions: Sciatica (ED), Heel Spur (ED) Additional Instructions: Your pain is most likely due to sciatica. Your foot x-ray showed bone spurs. Wear supportive sneakers. No bending, lifting or twisting. Use ice several times per day for 20 minutes at a time for the next 48 hours and then change to heat. Take medications as prescribed to help with pain and discomfort. Follow up with your Primary Care Doctor this week. If your pain worsens, if you develop new numbness, tingling, weakness, loss of function or incontinence call 911 or come back to the ER right away for evaluation. Prescriptions: New prednisone 20 mg tablet 40 mg PO DAILY Qty: 10 0RF cyclobenzaprine 10 mg tablet 10 mg PO TID PRN (Reason: muscle spasm) Qty: 10 0RF No Action omeprazole 20 mg capsule,delayed release(DR/EC) 40 mg PO BID Qty: 360 0RF Movantik 12.5 mg tablet 12.5 mg PO QAM 90 Days Qty: 90 2RF ropinirole 1 mg Tablet 1 mg PO BEDTIME Lantus U-100 Insulin 100 unit/mL Solution 20 unit SUBCUT BEDTIME cetirizine [Zyrtec] 10 mg Tablet 10 mg PO DAILY prazosin 1 mg Capsule 1 mg PO BEDTIME glimepiride 1 mg Tablet 1 mg PO DAILY mirtazapine 45 mg Tablet 45 mg PO BEDTIME PRN (Reason: Insomnia) montelukast [Singulair] 10 mg Tablet 10 mg PO BEDTIME albuterol sulfate [ProAir HFA] 90 mcg/actuation Hfa Aerosol Inhaler 2 puff INHALATION QID PRN (Reason: Shortness Of Breath) bupropion HCl [Wellbutrin XL] 300 mg Tablet Extended Release 24 Hr 300 mg PO DAILY bupropion HCl [Wellbutrin XL] 150 mg Tablet Extended Release 24 Hr 150 mg PO DAILY Spiriva with HandiHaler 18 mcg Capsule, W/Inhalation Device 1 cap INHALATION DAILY duloxetine [Cymbalta] 60 mg Capsule,Delayed Release(Dr/Ec) 60 mg PO DAILY propranolol 20 mg tablet 20 mg PO BID Qty: 60 0RF Rx Instructions: Replaces metoprolol succinate. Lowers blood pressure and prevents migraines. fenofibrate micronized 134 mg capsule 1 tab PO QPM oxycodone-acetaminophen 5-325 mg tablet 1 tab PO Q8H PRN (Reason: pain) fluticasone propionate 50 mcg/actuation spray,suspension 2 spray intranasal DAILY lisinopril 2.5 mg tablet 1 tab PO QAM topiramate 50 mg tablet 1 tab PO BEDTIME tekgzeirqe-phqeetfcwubky-jefg [Fioricet] 50-300-40 mg capsule 1 cap PO TID PRN (Reason: headache) Qty: 10 0RF Rx Instructions: Do not take this medication with other sources of Tylenol including Percocet cefuroxime axetil 500 mg tablet 500 mg PO BID Qty: 14 0RF diphenoxylate-atropine [Lomotil] 2.5-0.025 mg tablet 1 tab PO TID PRN (Reason: diarrhea) Qty: 7 0RF naproxen 250 mg tablet 250 mg PO Q12H PRN (Reason: pain) Qty: 10 0RF cyclobenzaprine 10 mg tablet 10 mg PO TID PRN (Reason: muscle spasm) Qty: 14 0RF nitrofurantoin monohyd/m-cryst [Macrobid] 100 mg capsule 100 mg PO BID Qty: 14 0RF Rx Instructions: must administer with a meal/food Gaviscon Extra Strength 254-237.5 mg/5 mL suspension 10 ml PO QID PRN (Reason: dyspepsia) Qty: 355 0RF Flovent HFA 110 mcg/actuation HFA aerosol inhaler 2 puff inhalation BID meloxicam 15 mg tablet 15 mg PO DAILY 30 Days Qty: 30 0RF Referrals: [facility] [Provider Group] [facility] [Provider Group] Bernardo Díaz MD, PhD [Physician] - Interventions: ED Discharge Assessment Last Done: 03/16/24 18:37 Discharge Date/Time: 03/16/24 18:38 Print Language: Tajik
[2024-03-16 14:55] LABS: Glucose, Whole Blood 264 mg/dL (60-115)
[2024-03-16] MEDS: Cyclobenzaprine HCl 10 MG TABLET PO (16:39)
[2024-03-16] MEDS: Acetaminophen 325 MG TABLET 975 MG PO (16:40)
[2024-03-16 16:48] VITALS: BP 148/82; PULSE 77; RESP 19; TEMP 36.6; O2SAT 97
[2024-03-16 17:51] VITALS: BP 143/80; PULSE 71; RESP 19; TEMP 36.6; O2SAT 97
[2024-03-16 18:37] VITALS: BP 143/80; PULSE 71; RESP 19; TEMP 36.7; O2SAT 97
== END 2024-03-16 18:38 | disposition home or self-care (01) ==
PROVIDERS: Emergency Provider Emergency Medicine
DX: M77.32 Calcaneal spur, left foot (principal); M54.30 Sciatica, unspecified side; M54.50 Low back pain, unspecified; M79.605 Pain in left leg; M79.672 Pain in left foot; I10 Essential (primary) hypertension; E11.9 Type 2 diabetes mellitus without complications
CPT/HCPCS: 72100; 73630; 82947; 99283

== ENCOUNTER 2024-03-26 09:39 | Outpatient (AMB) | payer MEDICAID, SELFPAY ==
--- NOTE | 2024-03-26 09:45 | A.SPINEOV_ITS ---
Intake Visit Reasons: ED follow up Intake Note: Ms. Asif is here today for ED F/u on sciatica pain. Policy Specialist Required: Yes Policy Specialist Name: Tablet Allergies ENVIRONMENTAL Allergy (Mild, Uncoded 03/16/24 14:34) Dry Eye Assessment & Plan Assessment & Plan (1) Lumbar disc herniation: Code(s): M51.26 - Other intervertebral disc displacement, lumbar region Category: Medical Plan Dear Dr Olmstead, Mrs Asif came into our office today for follow-up from the emergency room. The visit was done with the assistance of an case filler through the iPad. She is a patient with previous spinal surgical history including what sounds like an anterior lumbar interbody fusion at L4-5, and some kind of thoracic decompression for what she describes as excess fluid around her spinal cord. The fusion was done 10 years ago and she tells me that she had a good recovery from that. The thoracic spine surgery was done about 2 years ago and it sounds like she had a myelopathy that never completely resolved. She still had numbness and some balance issues afterwards but for the most part she was independent. What brought her that in the emergency room a few weeks ago and she is currently in my office about is a new pain that started 2 months ago radiating down her left leg. She describes that as it encompassing her whole left leg going down into her foot. Her leg feels weak like she is having trouble walking and it does not want to hold her up. No bowel or bladder incontinence. She has been taking gabapentin, naproxen, Flexeril and oxycodone. Despite this she is still in significant amounts of pain. The pain is present not only when she stands and walks but also when she is sitting. She is constantly moving around the try to get comfortable. She has done no dedicated conservative treatment. Previous physical therapy has only made her pain worse. She has had no injections, neonatal intensive care unit nurse etc.. PMH: She is a diabetic, she does not know what her A1c is. She has high blood pressure, asthma, COPD which she describes as mild which she takes an inhaler. She had the 2 previous spinal surgeries as outlined above. She also reports she has had her gallbladder out, for different ear operations for chronic infections, hysterectomy and oophorectomy. She denies any history of heart attack, stroke, kidney disorders, bleeding disorders, blood clots etc.. Social hx: She smokes 6-7 cigarettes a day, denies any alcohol drug or marijuana use Medications: Gabapentin, naproxen, Singulair, omeprazole, glimepiride, Flexeril, oxycodone, lisinopril, Trulicity, Lantus, albuterol, fenofibrate, simvastatin Allergies: Metformin once gave her some heart issues Physical exam: She is awake alert oriented, she is uncomfortable constantly leaning to her right side to take pressure off the left. I was barely able to lift her leg because of positive straight leg raise at about 10 degrees. She was very uncomfortable sitting in a chair. Any movement caused her to have shooting pain down her leg. Testing her motor strength is difficult but it felt as though she had movement of all the major muscle groups but thorough testing could not be done because of pain. She is absent reflexes bilaterally at the patella and the Achilles. She has multiple scars along her abdomen, their laparoscopic scars, a large midline incision which is well healed extending from her umbilicus down 6 rate inches. There is also a horizontal scar from her hysterectomy which is well healed. She also has a scar in the back of her upper thoracic region which is about 6-8 inches in length in his well healed. Imaging review: There are x-rays done at [facility] and a CT scan from last year. It shows what looks like anterior lumbar interbody cages at L4-5. There appears to be suboptimal fusion at this level. Impression: 53-year-old female with 2 previous spinal surgeries as outlined above, L4-5 anterior lumbar interbody fusion with no posterior instrumentation and what sounds like some kind of thoracic decompression. She is presenting now with 2 months of severe left leg pain which has been only getting worse. Examination is difficult because she is very uncomfortable. It sounds like she has herniated a disc possibly above or below where the previous fusion was is my suspicion. I would like to get an urgent MRI and her to evaluate her lumbar spine. Also, I would like to get operative notes from her surgeries at [facility] on her thoracic and lumbar spine so I can better understand her whole history. She was asking about refilling her medications and I told her that we do not give out pain medications only for brief periods after operations so I will defer her back to your office for this. We will also need an updated A1c if she is going to undergo surgery so that will be something we can address after the M [place]. Thank you for allowing us to care for your patient. The total time spent with this visit with this patient was[] minutes reviewing history, physical exam, [] imaging review, and implementation of treatment plan or further diagnostic testing Sharad Díaz MD,PhD [facility] Orders: Orders MR lumbar spine wo/w con Today M51.26 - Other intervertebral disc displacement, lumbar region Coding Level of Care Code New Pt Level 4 (29175) Diagnoses Lumbar disc herniation M51.26
== END 2024-03-26 10:16 | disposition home or self-care (01) ==
PROVIDERS: Visit Provider Physician Assistant
DX: M51.26 Other intervertebral disc displacement, lumbar region (principal)
CPT/HCPCS: 99204

== ENCOUNTER → 2024-03-26 09:39 | Outpatient (BNVA) | payer MEDICAID, SELFPAY | PROVIDERS: Visit Provider Physician Assistant | DX: M51.26 Other intervertebral disc displacement, lumbar region (principal) | CPT/HCPCS: 99212 ==

== ENCOUNTER 2024-05-16 11:49 | Emergency (ER) | payer MEDICAID, SELFPAY ==
[2024-05-16 11:51] VITALS: BP 142/78; PULSE 105; RESP 19; TEMP 36.2; O2SAT 97; BMI 32.4
[2024-05-16 12:48] LABS: Basophils Percent Auto 0.2 % (0-2); Eosinophils Absolute Auto 0.1 X10*3/uL (0.0-0.4); Hematocrit 40.9 % (37.0-47.0); Hemoglobin 14.9 g/dl (12.0-16.0); Imm Gran Abs Auto 0.02 X10*3/uL (0.00-0.03); Imm Gran Pct Auto 0.2 % (0.0-0.4); Lymphocytes Absolute Auto 1.5 X10*3/uL (1.2-4.9); MANUAL DIFF FLAG NO; Mean Corpuscular HGB Conc 36.4 g/dl (31.0-35.0); Mean Corpuscular Hemoglobin 31.8 pg (27.0-33.0); Mean Corpuscular Volume 87.4 fL (80.0-98.0); Mean Platelet Volume 10.1 fL (9.4-12.3); Monocytes Absolute Auto 0.5 X10*3/uL (0.1-1.2); Monocytes Percent Auto 4.6 % (2-11); Platelet Count 290 X10*3/uL (160-400); Red Blood Count 4.68 X10*6/uL (4.20-5.50); Red Cell Distribution Width 12.5 % (11.0-16.0); White Blood Count 11.1 X10*3/uL (4.8-10.8)
[2024-05-16] MEDS: ondansetron HCL 4 MG/2 ML VIAL IVPUSH (12:50)
[2024-05-16] MEDS: 0.9 % Sodium Chloride 1,000 ML 999 ML IVCONT (12:51)
[2024-05-16 12:58] LABS: Glucose, Whole Blood 206 mg/dL (60-115)
--- NOTE | 2024-05-16 12:58 | ED_ITS ---
HPI - Abdominal Pain General Chief Complaint: Abdominal Pain Stated Complaint: multiple complaints Time Seen by Provider: 05/16/24 12:04 Source: patient, RN notes reviewed and old records reviewed Mode of arrival: ambulatory Limitations: no limitations History of Present Illness ED Provider: Neelam Basurto PA-C HPI narrative: 53 year old female with PMHx of hemiplegia migraine, HLD, HTN, sciatica, asthma, COPD and diabetes presents to the ER due to having diarrhea, nausea, and abdominal pain since this AM. Reports 5 episodes of non-bloody diarrhea and 4 episodes of non-bloody vomiting. Has localized to epigastric abdominal pain radiates to LLQ quadrant. It is a constant, burning 10/10 pain. Denies sick contacts, returned from [place] 5 days ago, was seen by PCP due to right ear infection right after returning from trip and currently being treated with amoxicillin. Has associated headache, vision spots, sensitivity to light and chills. Notes having a chronic cough due to smoking cigarettes. Denies blurry vision, fever, chest pain, palpitations, dyspnea, urinary symptoms and constipation. Took zofran and pepto bismol with no relief. MD elicited complaint: abdominal pain and other (headache, nausea, abdominal pain) Onset (ago): hour(s) Pain Consistency: constant Location: epigastric Severity: moderate Quality: burning Radiation: none Migration to: no migration Exacerbating factors: eating Relieving factors: nothing Context: history of similar episodes Associated symptoms: nausea and diarrhea Related Data Home Medications ?Medication ?Instructions ?Recorded ?Confirmed albuterol sulfate 90 mcg/actuation 2 puff inhalation QID PRN 10/06/20 07/06/21 aerosol inhaler (ProAir HFA) Shortness Of Breath bupropion HCl 150 mg 24 hr tablet, 150 mg PO DAILY 10/06/20 07/06/21 extended release (Wellbutrin XL) bupropion HCl 300 mg 24 hr tablet, 300 mg PO DAILY 10/06/20 07/06/21 extended release (Wellbutrin XL) cetirizine 10 mg tablet (Zyrtec) 10 mg PO DAILY 10/06/20 07/06/21 duloxetine 60 mg capsule,delayed 60 mg PO DAILY 10/06/20 07/06/21 release (Cymbalta) glimepiride 1 mg tablet 1 mg PO DAILY 10/06/20 07/06/21 insulin glargine 100 unit/mL 20 unit subcut BEDTIME 10/06/20 07/11/21 subcutaneous solution (Lantus U-100 Insulin) mirtazapine 45 mg tablet 45 mg PO BEDTIME PRN Insomnia 10/06/20 07/06/21 montelukast 10 mg tablet 10 mg PO BEDTIME 10/06/20 07/06/21 (Singulair) prazosin 1 mg capsule 1 mg PO BEDTIME 10/06/20 07/06/21 ropinirole 1 mg tablet 1 mg PO BEDTIME 10/06/20 07/06/21 tiotropium bromide 18 mcg capsule 1 cap inhalation DAILY 10/06/20 07/06/21 with inhalation device (Spiriva with HandiHaler) fenofibrate micronized 134 mg 1 tab PO QPM 05/24/21 07/06/21 capsule fluticasone propionate 50 2 spray intranasal DAILY 05/24/21 07/06/21 mcg/actuation nasal spray,suspension lisinopril 2.5 mg tablet 1 tab PO QAM 05/24/21 07/06/21 oxycodone-acetaminophen 5 mg-325 1 tab PO Q8H PRN pain 05/24/21 07/06/21 mg tablet topiramate 50 mg tablet 1 tab PO BEDTIME 05/24/21 07/06/21 fluticasone propionate 110 2 puff inhalation BID 08/24/21 mcg/actuation HFA aerosol inhaler (Flovent HFA) Previous Rx's ?Medication ?Instructions ?Recorded propranolol 20 mg tablet 20 mg PO BID #60 tabs 10/07/20 meloxicam 15 mg tablet 15 mg PO DAILY 30 days #30 tabs 02/05/22 cefuroxime axetil 500 mg tablet 500 mg PO BID #14 tabs 09/17/22 diphenoxylate-atropine 2.5 1 tab PO TID PRN diarrhea #7 tabs 09/17/22 mg-0.025 mg tablet (Lomotil) [id number]-daflroyqdbqkb-hqdgqeqh 1 cap PO TID PRN headache #10 caps 12/12/22 50 mg-300 mg-40 mg capsule (Fioricet) cyclobenzaprine 10 mg tablet 10 mg PO TID PRN muscle spasm #14 02/21/23 tabs naproxen 250 mg tablet 250 mg PO Q12H PRN pain #10 tabs 12/17/22 nitrofurantoin 100 mg PO BID #14 caps 12/17/22 monohydrate/macrocrystals 100 mg capsule (Macrobid) omeprazole 20 mg capsule,delayed 40 mg (2 x 20 mg) PO BID #360 caps 07/22/23 release aluminum hydrox-magnesium carb 254 10 ml PO QID PRN dyspepsia #355 mL 07/28/23 mg-237.5 mg/5 mL oral suspension (Gaviscon Extra Strength) naloxegol 12.5 mg tablet (Movantik) 12.5 mg PO QAM 90 days #90 tabs 08/08/23 cyclobenzaprine 10 mg tablet 10 mg PO TID PRN muscle spasm #10 03/16/24 tabs prednisone 20 mg tablet 40 mg (2 x 20 mg) PO DAILY #10 tabs 03/16/24 naproxen 500 mg tablet 500 mg PO BID PRN pain #20 tabs 05/16/24 ondansetron 4 mg disintegrating 4 mg PO Q8H PRN nausea and 05/16/24 tablet vomiting #7 tabs Allergies Allergy/AdvReac Type Severity Reaction Status Date / Time ENVIRONMENTAL Allergy Mild Dry Eye Uncoded 05/16/24 11:56 Review of Systems Constitutional: Reports as per HPI Eyes: Reports as per HPI Reports as per HPI Cardiovascular: Reports as per HPI Respiratory: Reports as per HPI Gastrointestinal: Reports as per HPI Genitourinary: Reports as per HPI Musculoskeletal: Reports as per HPI Skin/Breast: Reports as per HPI Reports as per HPI Psychiatric: Reports as per HPI Endocrine: Reports as per HPI Hematologic/Lymphatic: Reports as per HPI Allergic/Immunologic: Reports as per HPI PMFSH Past Medical History Medical History Hemiplegic migraine HLD (hyperlipidemia) HTN (hypertension) Migraines Sciatica Asthma COPD (chronic obstructive pulmonary disease) Diabetes Surgical History Hx of colonoscopy History of esophagogastroduodenoscopy (EGD) Hx laparoscopic cholecystectomy History of ear surgery H/O: hysterectomy Family History Family History Sister Migraine Social History Social History Household Members: None Housing: Apartment Do you presently have visiting nurse or other home services: No Alcohol intake: never Patient Tobacco Use Status: Current everyday Tobacco user Tobacco use type: Cigarette Cigarette Packs Per Day: 0.4 Cigarettes Per Day: 10 Years Smoked: 20 Second Hand Smoke Exposure: Yes Advance Directives: No Advance Directives Information Provided: No Do you have a plan to hurt others: No Plan service: No Current occupational status: other Physical Exam ED Vital Signs: Vital Signs - 24 hr 05/16/24 11:51 05/16/24 14:51 Temperature 97.2 F 97.9 F Pulse Rate 105 H 89 Respiratory Rate 19 16 Blood Pressure 142/78 H 135/71 Pulse Oximetry 97 99 Oxygen Delivery Method Room Air Room Air BMI result Body Mass Index 32.4 Appearance: Alert. Oriented X3. Lying on the stretcher with eyes closed, appears uncomfortable. Head: normocephalic, atraumatic. Eyes: Pupils equal, round and reactive to light. No nystagmus. Photosensitivity present ENT: Pharynx normal. No tonsillar swelling or exudate. Neck: Normal inspection. Neck supple. CVS: Normal heart rate and rhythm. Pulses normal. Respiratory: No respiratory distress. Breath sounds normal. Abdomen: Soft, non-distended, obese, epigastric tenderness to palpation, no discoloration. +BS x4 Skin: Skin warm and dry. Normal skin color. Normal skin turgor. No rashes. Extremities: No lower extremity edema. No joint swelling. Left hip with mild diffuse tenderness, full range of motion. Neuro/psych: Oriented X 3. No motor deficit. No sensory deficit. CN II-XII intact. Normal speech and cognition. Medical Decision Making Medical Decision Making MDM Narrative: 53-year-old female with a PMHx significant for hemiplegic migraines, HLD, HTN, sciatica, asthma, COPD, and diabetes presents to the ER complaining of diarrhea, nausea, and abdominal pain since this AM. Upon arrival, she is mildly hypertensive with a BP of 142/78 and a HR of 105; all other vital signs were WNL. The patient appears alert, oriented, and non-toxic. Physical examination reveals a soft, non-distended abdomen with tenderness noted in the epigastric and left lower quadrant regions, without discoloration. Bowel sounds are present in all four quadrants. Low suspicion for SBO. The remainder of the examination is unremarkable. Initial laboratory findings were mostly unremarkable, except for a WBC of 11.1. Influenza A/B and RSV serology were negative, while SARs-CoV was positive. A stool panel was ordered but could not be completed as the patient did not experience any further episodes of diarrhea during her time in the ER, making infectious etiology of her diarrhea less likely. Although a chest x-ray was considered, there was low suspicion for pneumonia given clear lung sounds, absence of respiratory distress, and oxygen saturation of 97% on room air. Based on these findings, the plan is to discharge the patient with instructions to rest, stay hydrated, and use OTC acetaminophen and ibuprofen as needed. Recommended to follow up with her PCP. Discussed return precautions, patient has clear understanding and agrees with plan. Differential Diagnosis Differential Diagnoses: The differential diagnosis associated with the presentation includes influenza A/B, RSV, COVID-19, RSV, gastroenteritis, diverticulitis, diverticulosis, GERD, migraine, tension type headache, giardia, campylobacter jejuni, salmonella, shigella, low suspicion for bowel obstruction or sepsis Admission/Observation Consideration of admission/observation: Escalation of care including admission/observation considered Improved after treatment was able to be discharged home Lab Data MDM Lab Attestation statement: I reviewed the patient's lab results. Mild leukocytosis, mild hyperglycemia without anion gap acidosis 05/16/24 12:36 05/16/24 12:36 Labs: Lab Results 05/16/24 05/16/24 Range/Units 12:31 12:36 WBC 11.1 H (4.8-10.8) X10*3/uL RBC 4.68 (4.20-5.50) X10*6/uL Hgb 14.9 (12.0-16.0) g/dl Hct 40.9 (37.0-47.0) % MCV 87.4 (80.0-98.0) fL MCH 31.8 (27.0-33.0) pg MCHC 36.4 H (31.0-35.0) g/dl RDW 12.5 (11.0-16.0) % Plt Count 290 (160-400) X10*3/uL MPV 10.1 (9.4-12.3) fL Immature Gran % (Auto) 0.2 (0.0-0.4) % Neut % (Auto) 81.0 H (45-73) % Lymph % (Auto) 13.0 L (20-40) % Lucas % (Auto) 4.6 (2-11) % Eos % (Auto) 1.0 (0-4) % Baso % (Auto) 0.2 (0-2) % Lymph # (Auto) 1.5 (1.2-4.9) X10*3/uL Lucas # (Auto) 0.5 (0.1-1.2) X10*3/uL Eos # (Auto) 0.1 (0.0-0.4) X10*3/uL Baso # (Auto) 0.0 (0.0-0.2) X10*3/uL Abs Immat Gran (auto) 0.02 (0.00-0.03) X10*3/uL Absolute Neuts (auto) 9.0 H (2.0-8.3) x10*3/uL Absolute Nucleated RBC 0.000 (0.0-0.012) X10*3/uL Nucleated RBC % (auto) 0.0 (0.0-0.2) /100WBC Sodium 139 (135-145) mmol/L Potassium 3.9 (3.3-5.1) mmol/L Chloride 105 (96-108) mmol/L Carbon Dioxide 21 L (22-29) mmol/L Anion Gap 17 (12-20) BUN 14 (9-16) mg/dL Creatinine 0.84 (0.5-1.4) mg/dL Estim Creat Clear Calc 85.0 Estimated GFR > 60 POC Glucose 206 H (60-115) mg/dL Random Glucose 191 H (60-115) mg/dL Calcium 10.4 H D (8.4-10.2) mg/dL Magnesium 1.9 (1.6-2.6) mg/dL Total Bilirubin 0.6 (0.0-1.0) mg/dL Direct Bilirubin 0.2 (0.0-0.5) mg/dL AST 23 (5-31) U/L ALT 27 (0-31) U/L Alkaline Phosphatase 153 H (39-117) U/L Total Protein 8.3 H (6.5-8.0) g/dL Albumin 4.6 (3.5-5.0) g/dL Lipase 26 (8-78) U/L Influenza Type A (PCR) NEGATIVE (Negative) Influenza Type B (PCR) NEGATIVE (Negative) RSV RNA Qual (PCR) NEGATIVE (Negative) SARS-CoV-2 RNA (RT-PCR) POSITIVE A (Negative) External Record Review External record reviewed: Outpatient record, Prior outpatient labs and Prior outpatient radiology Tests considered The following testing was considered but not selected: Chest x-ray considered however low suspicion for viral pneumonia or bacterial pneumonia. EKG considered however she has no chest pain and shortness of breath is likely related to COVID, not cardiac etiology Prescription Management I considered prescription management with: Pain Medication and Antiviral Chronic Conditions Patient?s care impacted by: Other (Chronic intractable migraines, gastroparesis and esophagitis) Medications Administered Discontinued Medications Generic Name Dose Route Start Last Admin Trade Name Freq PRN Reason Stop Dose Admin Diphenhydramine HCl 50 mg 05/16/24 13:00 05/16/24 13:21 Diphenhydramine Hcl 50 Mg/Ml Vial IVPUSH 05/16/24 13:01 50 mg ONCE ONE Administration Sodium Chloride 1,000 mls @ 999 mls/hr 05/16/24 12:15 05/16/24 14:39 Ns IVCONT 05/16/24 13:15 Infused .Q1H1M KORY Infusion Ketorolac Tromethamine 30 mg 05/16/24 13:00 05/16/24 13:21 Ketorolac Tromethamine 30 Mg/Ml Vial IVPUSH 05/16/24 13:01 30 mg ONCE ONE Administration Metoclopramide HCl 10 mg 05/16/24 13:00 05/16/24 13:21 Metoclopramide Hcl 10 Mg/2 Ml Vial IVPUSH 05/16/24 13:01 10 mg ONCE ONE Administration Ondansetron HCl 4 mg 05/16/24 12:05 05/16/24 12:50 Ondansetron Hcl 4 Mg/2 Ml Vial IVPUSH 05/16/24 12:06 4 mg ONCE ONE Administration Critical Care Time Critical Care Time Critical Care Time: Yes Total Critical Care Time: 33 Attestation: I have personally provided critical care time exclusive of time spent on separately billable procedures. Time includes review of lab data, radiology results, bedside reassessment after IV medications & IVF bolus were administered, and monitoring for potential decompensation. Intervention performed as documented. Discharge Plan Discharge Clinical Impression: COVID-19 Migraine Qualifiers: Migraine type: unspecified Status migrainosus presence: without status migrainosus Intractability: not intractable Qualified Code(s): G43.909 - Migraine, unspecified, not intractable, without status migrainosus Patient Disposition: Home, Self-Care Instructions: COVID-19 (Coronavirus Disease 2019) (ED) Additional Instructions: You were found to be COVID-19 POSITIVE today. Your labs and oxygen levels were normal. Rest. Drink plenty of fluids. Do not go out in public whil you are not feeling well. Take over the counter cold/flu medications as needed for your symptoms. He is prescribed anti-inflammatory as needed for pain and aches Take the prescribed nausea medication as needed. Rest and drink plenty of fluids. Follow up with your doctor this week. If you develop new or worsening symptoms call 911 or come back to the ER for further evaluation. Prescriptions: New ondansetron 4 mg tablet,disintegrating 4 mg PO Q8H PRN (Reason: nausea and vomiting) Qty: 7 0RF naproxen 500 mg tablet 500 mg PO BID PRN (Reason: pain) Qty: 20 0RF No Action omeprazole 20 mg capsule,delayed release(DR/EC) 40 mg PO BID Qty: 360 0RF Movantik 12.5 mg tablet 12.5 mg PO QAM 90 Days Qty: 90 2RF ropinirole 1 mg Tablet 1 mg PO BEDTIME Lantus U-100 Insulin 100 unit/mL Solution 20 unit SUBCUT BEDTIME cetirizine [Zyrtec] 10 mg Tablet 10 mg PO DAILY prazosin 1 mg Capsule 1 mg PO BEDTIME glimepiride 1 mg Tablet 1 mg PO DAILY mirtazapine 45 mg Tablet 45 mg PO BEDTIME PRN (Reason: Insomnia) montelukast [Singulair] 10 mg Tablet 10 mg PO BEDTIME albuterol sulfate [ProAir HFA] 90 mcg/actuation Hfa Aerosol Inhaler 2 puff INHALATION QID PRN (Reason: Shortness Of Breath) bupropion HCl [Wellbutrin XL] 300 mg Tablet Extended Release 24 Hr 300 mg PO DAILY bupropion HCl [Wellbutrin XL] 150 mg Tablet Extended Release 24 Hr 150 mg PO DAILY Spiriva with HandiHaler 18 mcg Capsule, W/Inhalation Device 1 cap INHALATION DAILY duloxetine [Cymbalta] 60 mg Capsule,Delayed Release(Dr/Ec) 60 mg PO DAILY propranolol 20 mg tablet 20 mg PO BID Qty: 60 0RF Rx Instructions: Replaces metoprolol succinate. Lowers blood pressure and prevents migraines. fenofibrate micronized 134 mg capsule 1 tab PO QPM oxycodone-acetaminophen 5-325 mg tablet 1 tab PO Q8H PRN (Reason: pain) fluticasone propionate 50 mcg/actuation spray,suspension 2 spray intranasal DAILY lisinopril 2.5 mg tablet 1 tab PO QAM topiramate 50 mg tablet 1 tab PO BEDTIME [id number] [Fioricet] 50-300-40 mg capsule 1 cap PO TID PRN (Reason: headache) Qty: 10 0RF Rx Instructions: Do not take this medication with other sources of Tylenol including Percocet cefuroxime axetil 500 mg tablet 500 mg PO BID Qty: 14 0RF diphenoxylate-atropine [Lomotil] 2.5-0.025 mg tablet 1 tab PO TID PRN (Reason: diarrhea) Qty: 7 0RF naproxen 250 mg tablet 250 mg PO Q12H PRN (Reason: pain) Qty: 10 0RF cyclobenzaprine 10 mg tablet 10 mg PO TID PRN (Reason: muscle spasm) Qty: 14 0RF nitrofurantoin monohyd/m-cryst [Macrobid] 100 mg capsule 100 mg PO BID Qty: 14 0RF Rx Instructions: must administer with a meal/food Gaviscon Extra Strength 254-237.5 mg/5 mL suspension 10 ml PO QID PRN (Reason: dyspepsia) Qty: 355 0RF prednisone 20 mg tablet 40 mg PO DAILY Qty: 10 0RF cyclobenzaprine 10 mg tablet 10 mg PO TID PRN (Reason: muscle spasm) Qty: 10 0RF Flovent HFA 110 mcg/actuation HFA aerosol inhaler 2 puff inhalation BID meloxicam 15 mg tablet 15 mg PO DAILY 30 Days Qty: 30 0RF Referrals: Wojciech Kinsey MD [Primary Care Provider] - Print Language: Congolese
[2024-05-16 13:09] LABS: Alanine Aminotransferase 27 U/L (0-31); Albumin Level 4.6 g/dL (3.5-5.0); Alkaline Phosphatase 153 U/L (39-117); Anion Gap 17 (12-20); Aspartate Amino Transferase 23 U/L (5-31); Bilirubin Direct 0.2 mg/dL (0.0-0.5); Bilirubin Total 0.6 mg/dL (0.0-1.0); Blood Urea Nitrogen 14 mg/dL (9-16); Calcium 10.4 mg/dL (8.4-10.2); Carbon Dioxide 21 mmol/L (22-29); Chloride 105 mmol/L (96-108); Estimated Glomerular Filt Rate > 60; Glucose Random 191 mg/dL (60-115); Lipase 26 U/L (8-78); Magnesium 1.9 mg/dL (1.6-2.6); Potassium 3.9 mmol/L (3.3-5.1); Sodium 139 mmol/L (135-145); Total Protein 8.3 g/dL (6.5-8.0)
[2024-05-16] MEDS: Metoclopramide HCl 10 MG/2 ML VIAL IVPUSH (13:21)
[2024-05-16] MEDS: Ketorolac Tromethamine 30 MG/ML VIAL IVPUSH (13:21)
[2024-05-16] MEDS: diphenhydrAMINE HCL 50 MG/ML VIAL IVPUSH (13:21)
[2024-05-16 13:55] LABS: Influenza A PCR NEGATIVE (Negative); Influenza B PCR NEGATIVE (Negative); Resp Syncy Virus RNA Qual PCR NEGATIVE (Negative); SARS COV2 PCR INHOUSE POSITIVE (Negative)
[2024-05-16 14:51] VITALS: BP 135/71; PULSE 89; RESP 16; TEMP 36.6; O2SAT 99
[2024-05-16 16:01] VITALS: BP 135/71; PULSE 89; RESP 16; TEMP 36.6; O2SAT 99
== END 2024-05-16 16:01 | disposition home or self-care (01) ==
PROVIDERS: Physician Assistant; Emergency Provider Emergency Medicine; PCP Internal Medicine
DX: U07.1 COVID-19 (principal); R10.32 Left lower quadrant pain; R11.0 Nausea; R19.7 Diarrhea, unspecified; R51.9 Headache, unspecified; F17.210 Nicotine dependence, cigarettes, uncomplicated; Z79.899 Other long term (current) drug therapy
CPT/HCPCS: 0241U; 80048; 80076; 82947; 83690; 83735; 85025; 96360; 96374; 96375; 99284; J1200; J1885; J2405; J2765

== ENCOUNTER 2024-05-18 08:25 | Outpatient (REF) | payer MEDICAID, SELFPAY ==
--- NOTE | 2024-05-18 08:29 | EMG_ITS ---
Left tibial and peroneal motor studies were performed. Left superficial peroneal and sural sensory studies were performed. Median and lateral mixed sensory studies were performed. Tibial H-reflex was obtained. Needle examination was performed that was somewhat limited because of poor effort. IMPRESSION: 1. Probably chronic left lower lumbar radiculopathy. Due to limited EMG, acuteness could not be determined. 2. Mild sensory and motor peripheral neuropathy. MD VERENICE Schwartz/WOOD / [id number]
== END 2024-05-18 08:26 | disposition home or self-care (01) ==
LOC: HO.NEURO 08:25
PROVIDERS: PCP Internal Medicine; Visit Provider Family Medicine
DX: M54.42 Lumbago with sciatica, left side (principal); G89.29 Other chronic pain
CPT/HCPCS: 95886; 95910

== ENCOUNTER 2024-05-22 22:39 | Observation (INO) | payer MEDICAID, SELFPAY ==
--- NOTE | ~2024-05-22 | CT_ITS ---
EXAMINATION: CT ABDOMEN AND PELVIS WITH CONTRAST CLINICAL INFORMATION: Left lower quadrant pain, diarrhea COMPARISON: 07/28/2023 TECHNIQUE: Multidetector volumetric images were obtained from the superior aspect of the liver through the pubic symphysis following administration 85 mL of Omnipaque 350 intravenous contrast. Sagittal and coronal reformatted images were obtained on the technologist's workstation. Oral contrast: No This CT examination was performed using dose optimization techniques as appropriate, variously including the following: *Automated exposure control *Adjustment of mA and/or kV according to patient size (this includes techniques or standardized protocols for targeted exams where dose is matched to indication/reason for exam; i.e. extremities or head) *Use of iterative reconstruction technique DLP: 715 mGy-cm FINDINGS: LUNG BASES: The visualized lung bases are unremarkable. LIVER, GALLBLADDER, AND BILIARY TREE: The liver is enlarged measuring approximately 24.8 cm in length. Mild intrahepatic biliary ductal dilatation is nonspecific in the setting of prior cholecystectomy. PANCREAS: Unremarkable. SPLEEN: Mildly enlarged, measuring 14.2 cm in the axial plane. ADRENAL GLANDS: Unremarkable. KIDNEYS AND URETERS: Bilateral nephrograms are symmetric. No hydronephrosis or obstructing calculus identified. Few small bilateral renal cysts; no follow-up recommended. BLADDER: Nearly empty and not adequately evaluated. Small foci of intraluminal gas may reflect sequelae of recent catheterization. GASTROINTESTINAL TRACT: No evidence of bowel obstruction or significant wall thickening. Fluid is present within portions of the colon, a finding which can be associated with diarrhea. Appendix appears nondilated, without surrounding inflammation. No free fluid or free air is seen. ABDOMINAL WALL: No significant hernia is appreciated. LYMPH NODES: Normal. VASCULAR: There is atherosclerotic calcification along the aorta and iliac arteries. PELVIC VISCERA: Patient is status post hysterectomy. OSSEOUS STRUCTURES: Redemonstrated degenerative and postoperative changes at L4-L5. CT/CT abdomen pelvis w IV con IMPRESSION: 1. Fluid within portions of the colon, a finding which can be associated with diarrhea. No additional acute findings identified. 2. Hepatosplenomegaly.
[2024-05-22 22:51] VITALS: BP 164/95; PULSE 96; RESP 20; TEMP 36.9; O2SAT 98; BMI 31.7
[2024-05-22 23:08] LABS: MANUAL DIFF FLAG NO
[2024-05-22 23:09] LABS: Basophils Percent Auto 0.2 % (0-2); Eosinophils Absolute Auto 0.1 X10*3/uL (0.0-0.4); Eosinophils Percent Auto 1.2 % (0-4); Hematocrit 40.1 % (37.0-47.0); Hemoglobin 14.4 g/dl (12.0-16.0); Imm Gran Abs Auto 0.02 X10*3/uL (0.00-0.03); Imm Gran Pct Auto 0.2 % (0.0-0.4); Lymphocytes Absolute Auto 2.3 X10*3/uL (1.2-4.9); Lymphocytes Percent Auto 27.1 % (20-40); Mean Corpuscular HGB Conc 35.9 g/dl (31.0-35.0); Mean Corpuscular Hemoglobin 31.6 pg (27.0-33.0); Mean Corpuscular Volume 88.1 fL (80.0-98.0); Mean Platelet Volume 10.1 fL (9.4-12.3); Monocytes Absolute Auto 0.5 X10*3/uL (0.1-1.2); Monocytes Percent Auto 6.2 % (2-11); Neutrophils Absolute Auto 5.5 x10*3/uL (2.0-8.3); Neutrophils Percent Auto 65.1 % (45-73); Platelet Count 339 X10*3/uL (160-400); Red Blood Count 4.55 X10*6/uL (4.20-5.50); Red Cell Distribution Width 12.7 % (11.0-16.0); White Blood Count 8.5 X10*3/uL (4.8-10.8)
[2024-05-22 23:10] LABS: Appearance Urine Cloudy; Color Urine Yellow; Glucose Urine UA Negative (Negative); Leukocyte Esterase Urine Moderate (2+) (Negative); Nitrite Urine Negative (Negative); PH 5.5 (5.0-9.0); Specific Gravity - Urine 1.025 (1.005-1.025); UMIC TRIGGER UACC YES; Urine Blood Trace (Negative); Urine Ketones Negative (Negative); Urine Protein Trace mg/dL (Neg-Trace)
[2024-05-22 23:15] LABS: Bacteria Urine 1+ (None Seen); Hyaline Casts Urine 0-2 /LPF (0-2); UACC Culture Trigger YES; WBC Urine >50 /HPF (0-5)
[2024-05-22 23:22] LABS: Alanine Aminotransferase 23 U/L (0-31); Albumin Level 4.6 g/dL (3.5-5.0); Alkaline Phosphatase 146 U/L (39-117); Anion Gap 17 (12-20); Aspartate Amino Transferase 17 U/L (5-31); Bilirubin Total 0.5 mg/dL (0.0-1.0); Blood Urea Nitrogen 16 mg/dL (9-16); Carbon Dioxide 19 mmol/L (22-29); Chloride 107 mmol/L (96-108); Creatinine Clr Calc Pharmacy 87.1; Estimated Glomerular Filt Rate > 60; Glucose Random 170 mg/dL (60-115); Lipase 26 U/L (8-78); Sodium 139 mmol/L (135-145); Total Protein 8.2 g/dL (6.5-8.0)
[2024-05-22 23:29] LABS: COVID-19 Test Negative (Negative); IDNOW Serial# 08D9AD1C; IDNOW Serial# 152EDE1D; Influenza A Negative (Negative); Influenza B2 Negative (Negative)
[2024-05-23] VITALS (8 sets, daily range): BP systolic 110–159; BP diastolic 77–90; PULSE 66–85; RESP 16–18; TEMP 36.1–36.7; O2SAT 93–95; BMI 31.9
--- NOTE | 2024-05-23 01:31 | ED.ABDPAIN ---
HPI - Abdominal Pain General Chief Complaint: Abdominal Pain Stated Complaint: stomach pain/vomiting/headache Time Seen by Provider: 05/23/24 01:30 Source: patient Mode of arrival: ambulatory Limitations: language barrier (Georgian speaking only, iPad supervisor carbon paper coating used) History of Present Illness ED Provider: Dr. Zane Cuevas HPI narrative: 53-year-old female with a history of esophagitis, GERD, diabetes mellitus, hyperlipidemia, hypertension, asthma, COPD , hepatosplenomegaly, migraines who presents emergency department for evaluation of abdominal pain, nausea, vomiting x2 days. The patient states she has had multiple episodes of emesis and at least 10 episodes of diarrhea per day. She is complaining of abdominal pain. She points to her epigastric area when asked to localize the pain. She describes the pain is a burning sensation which is constant and is 8/10 at its worst. She also states she was burping and has a bad taste in the back of her throat. The patient was seen in the emergency department on 05/16/2020 24 for COVID-19 and was prescribed ondansetron and naproxen but was not prescribed antibiotics. Related Data Home Medications ?Medication ?Instructions ?Recorded ?Confirmed albuterol sulfate 90 mcg/actuation 2 puff inhalation QID PRN 10/06/20 07/06/21 aerosol inhaler (ProAir HFA) Shortness Of Breath bupropion HCl 150 mg 24 hr tablet, 150 mg PO DAILY 10/06/20 07/06/21 extended release (Wellbutrin XL) bupropion HCl 300 mg 24 hr tablet, 300 mg PO DAILY 10/06/20 07/06/21 extended release (Wellbutrin XL) cetirizine 10 mg tablet (Zyrtec) 10 mg PO DAILY 10/06/20 07/06/21 duloxetine 60 mg capsule,delayed 60 mg PO DAILY 10/06/20 07/06/21 release (Cymbalta) glimepiride 1 mg tablet 1 mg PO DAILY 10/06/20 07/06/21 insulin glargine 100 unit/mL 20 unit subcut BEDTIME 10/06/20 07/11/21 subcutaneous solution (Lantus U-100 Insulin) mirtazapine 45 mg tablet 45 mg PO BEDTIME PRN Insomnia 10/06/20 07/06/21 montelukast 10 mg tablet 10 mg PO BEDTIME 10/06/20 07/06/21 (Singulair) prazosin 1 mg capsule 1 mg PO BEDTIME 10/06/20 07/06/21 ropinirole 1 mg tablet 1 mg PO BEDTIME 10/06/20 07/06/21 tiotropium bromide 18 mcg capsule 1 cap inhalation DAILY 10/06/20 07/06/21 with inhalation device (Spiriva with HandiHaler) fenofibrate micronized 134 mg 1 tab PO QPM 05/24/21 07/06/21 capsule fluticasone propionate 50 2 spray intranasal DAILY 05/24/21 07/06/21 mcg/actuation nasal spray,suspension lisinopril 2.5 mg tablet 1 tab PO QAM 05/24/21 07/06/21 oxycodone-acetaminophen 5 mg-325 1 tab PO Q8H PRN pain 05/24/21 07/06/21 mg tablet topiramate 50 mg tablet 1 tab PO BEDTIME 05/24/21 07/06/21 fluticasone propionate 110 2 puff inhalation BID 08/24/21 mcg/actuation HFA aerosol inhaler (Flovent HFA) Previous Rx's ?Medication ?Instructions ?Recorded propranolol 20 mg tablet 20 mg PO BID #60 tabs 10/07/20 meloxicam 15 mg tablet 15 mg PO DAILY 30 days #30 tabs 02/05/22 cefuroxime axetil 500 mg tablet 500 mg PO BID #14 tabs 09/17/22 diphenoxylate-atropine 2.5 1 tab PO TID PRN diarrhea #7 tabs 09/17/22 mg-0.025 mg tablet (Lomotil) vbglowcenl-pcuarqldtdsnq-ewqjrckd 1 cap PO TID PRN headache #10 caps 12/12/22 50 mg-300 mg-40 mg capsule (Fioricet) cyclobenzaprine 10 mg tablet 10 mg PO TID PRN muscle spasm #14 12/17/22 tabs naproxen 250 mg tablet 250 mg PO Q12H PRN pain #10 tabs 12/17/22 nitrofurantoin 100 mg PO BID #14 caps 12/17/22 monohydrate/macrocrystals 100 mg capsule (Macrobid) omeprazole 20 mg capsule,delayed 40 mg (2 x 20 mg) PO BID #360 caps 07/22/23 release aluminum hydrox-magnesium carb 254 10 ml PO QID PRN dyspepsia #355 mL 07/28/23 mg-237.5 mg/5 mL oral suspension (Gaviscon Extra Strength) naloxegol 12.5 mg tablet (Movantik) 12.5 mg PO QAM 90 days #90 tabs 08/08/23 cyclobenzaprine 10 mg tablet 10 mg PO TID PRN muscle spasm #10 03/16/24 tabs prednisone 20 mg tablet 40 mg (2 x 20 mg) PO DAILY #10 tabs 03/16/24 naproxen 500 mg tablet 500 mg PO BID PRN pain #20 tabs 05/16/24 ondansetron 4 mg disintegrating 4 mg PO Q8H PRN nausea and 05/16/24 tablet vomiting #7 tabs Allergies Allergy/AdvReac Type Severity Reaction Status Date / Time ENVIRONMENTAL Allergy Mild Dry Eye Uncoded 05/22/24 22:51 Review of Systems Review of Systems Yes all other systems are reviewed and are negative [facility] Past Medical History [facility] Narrative: Social history: Patient does smoke cigarettes. She denies tobacco and alcohol use Medical History Hemiplegic migraine HLD (hyperlipidemia) HTN (hypertension) Migraines Sciatica Asthma COPD (chronic obstructive pulmonary disease) Diabetes Surgical History Hx of colonoscopy History of esophagogastroduodenoscopy (EGD) Hx laparoscopic cholecystectomy History of ear surgery H/O: hysterectomy Family History Family History Sister Migraine Social History Social History Household Members: None Housing: Apartment Do you presently have visiting nurse or other home services: No Alcohol intake: never Patient Tobacco Use Status: Current everyday Tobacco user Tobacco use type: Cigarette Cigarette Packs Per Day: 0.4 Cigarettes Per Day: 10 Years Smoked: 20 Smoked in Last 30 Days: Yes Second Hand Smoke Exposure: Yes Advance Directives: No Advance Directives Information Provided: No Do you have a plan to hurt others: No Plan Patient : No service: No Current occupational status: other Physical Exam ED Vital Signs: Vital Signs - 24 hr 05/22/24 22:51 05/23/24 02:37 05/23/24 03:29 Temperature 98.5 F 98.0 F Pulse Rate 96 85 Respiratory Rate 20 16 17 Blood Pressure 164/95 H 142/82 H Pulse Oximetry 98 94 Oxygen Delivery Method Room Air Room Air BMI result Body Mass Index 31.7 Vital signs revealed an elevated blood pressure otherwise unremarkable Exam: General: Awake, alert in no distress Head: Normocephalic, atraumatic EENT: PERRL, Lids normal, sclera normal, conjunctiva normal, nose normal , ears normal, throat without erythema or exudates Neck: Supple, no adenopathy Lung: breath sounds symmetric, no wheezing, rales or rhonchi Chest: symmetric movement, nontender Heart: regular rate and rhythm, normal S1, S2 no murmurs or rubs Abdomen: soft, mild to moderate diffuse abdominal tenderness, normoactive bowel sounds, no distension, no rebound, no voluntary or involuntary guarding Back: no vertebral tenderness, no CVAT Extremities: no deformities, moves all extremities symmetrically Neuro: Awake, alert, oriented, normal speech, cranial nerves intact, moves all extremities symmetrically Psych: Pleasant, cooperative Medical Decision Making Medical Decision Making MDM Narrative: 53-year-old female with a history of esophagitis, GERD, diabetes mellitus, hyperlipidemia, hypertension, asthma, COPD , hepatosplenomegaly, migraines who presents emergency department for evaluation of abdominal pain, nausea, vomiting x2 days. Vital signs revealed an elevated blood pressure. Exam revealed diffuse bppu-rv-jywwsocp abdominal pain with no abdominal distention, voluntary or involuntary guarding. Differential diagnosis: ?Includes but is not limited to gastritis, gastroenteritis, pancreatitis, diverticulitis, C difficile colitis, anemia, electrolyte abnormalities Following evaluation was ordered: CBC, CMP, lipase urinalysis, C diff, GI panel, COVID-19, RSV, influenza, CT scan of the abdomen pelvis with IV contrast Patient was initially treated with the following: Normal saline x1 L, morphine 4 mg IV, Zofran 4 mg IV Course: 06:04 My interpretation patient's laboratory evaluation is as follows: CBC was normal. CO2 low 19, glucose elevated 170, alk-phos elevated 146, lipase normal. Urinalysis revealed trace blood, moderate leukocyte esterase. Microscopic revealed 3-5 RBCs, greater than 50 WBCs, 6-10 squamous cells, 1+ bacteria-this is a non clean catch specimen-the patient has no symptoms for urinary tract infection. C diff was negative. COVID-19, influenza, RSV were negative. GI panel is pending. CT abdomen pelvis with IV contrast revealed no acute findings, the patient does have fluid in your colon which is consistent with her diarrhea. Patient states she was not feeling better. She has had at least 3-4 episodes of diarrhea here in the emergency department. Patient continues to have nausea and abdominal pain despite the above treatment. I will discuss admission with the covering hospitalist for further IV hydration and management of her abdominal pain, nausea and vomiting. Admission/Observation Consideration of admission/observation: Escalation of care including admission/observation considered Lab Data MDM Lab Attestation statement: I reviewed the patient's lab results. 05/22/24 22:59 05/22/24 22:59 Labs: Lab Results 05/22/24 05/23/24 Range/Units 22:59 03:02 WBC 8.5 (4.8-10.8) X10*3/uL RBC 4.55 (4.20-5.50) X10*6/uL Hgb 14.4 (12.0-16.0) g/dl Hct 40.1 (37.0-47.0) % MCV 88.1 (80.0-98.0) fL MCH 31.6 (27.0-33.0) pg MCHC 35.9 H (31.0-35.0) g/dl RDW 12.7 (11.0-16.0) % Plt Count 339 (160-400) X10*3/uL MPV 10.1 (9.4-12.3) fL Immature Gran % (Auto) 0.2 (0.0-0.4) % Neut % (Auto) 65.1 (45-73) % Lymph % (Auto) 27.1 (20-40) % [place] % (Auto) 6.2 (2-11) % Eos % (Auto) 1.2 (0-4) % Baso % (Auto) 0.2 (0-2) % Lymph # (Auto) 2.3 (1.2-4.9) X10*3/uL [place] # (Auto) 0.5 (0.1-1.2) X10*3/uL Eos # (Auto) 0.1 (0.0-0.4) X10*3/uL Baso # (Auto) 0.0 (0.0-0.2) X10*3/uL Abs Immat Gran (auto) 0.02 (0.00-0.03) X10*3/uL Absolute Neuts (auto) 5.5 (2.0-8.3) x10*3/uL Absolute Nucleated RBC 0.000 (0.0-0.012) X10*3/uL Nucleated RBC % (auto) 0.0 (0.0-0.2) /100WBC Sodium 139 (135-145) mmol/L Potassium 4.0 (3.3-5.1) mmol/L Chloride 107 (96-108) mmol/L Carbon Dioxide 19 L (22-29) mmol/L Anion Gap 17 (12-20) BUN 16 (9-16) mg/dL Creatinine 0.81 (0.5-1.4) mg/dL Estim Creat Clear Calc 87.1 Estimated GFR > 60 Random Glucose 170 H (60-115) mg/dL Calcium 10.0 (8.4-10.2) mg/dL Total Bilirubin 0.5 (0.0-1.0) mg/dL AST 17 (5-31) U/L ALT 23 (0-31) U/L Alkaline Phosphatase 146 H (39-117) U/L Total Protein 8.2 H (6.5-8.0) g/dL Albumin 4.6 (3.5-5.0) g/dL Lipase 26 (8-78) U/L Urine Color Yellow Urine Appearance Cloudy Urine pH 5.5 (5.0-9.0) Ur Specific [place] 1.025 (1.005-1.025) Urine Protein Trace (Neg-Trace) mg/dL Urine Glucose (UA) Negative (Negative) mg/dL Urine Ketones Negative (Negative) mg/dL Urine Blood Trace H (Negative) Urine Nitrite Negative (Negative) Ur Leukocyte Esterase Moderate (2+) H (Negative) Urine RBC 3-5 H (0-2) /HPF Urine WBC >50 H (0-5) /HPF Ur Squamous Epith Cells 6-10 (0-2) /HPF Urine Bacteria 1+ (None Seen) Hyaline Casts 0-2 (0-2) /LPF C. difficile Tox B Gene NEGATIVE (Negative) COVID-19 (PORFIRIO) Negative (Negative) COVID-19 Clin Com See Note Influenza Type A (TUSHAR) Negative (Negative) Influenza Type B (TUSHAR) Negative (Negative) Influenza A & B Note See Note Radiology Impression Discussion of test interpretation with radiology: I have reviewed the radiologist's reading. Radiologist Impression: CT abdomen pelvis w IV con IMPRESSION: 1. Fluid within portions of the colon, a finding which can be associated with diarrhea. No additional acute findings identified. 2. Hepatosplenomegaly. Dictated By: Paolo Colon MD Medications Administered Discontinued Medications Generic Name Dose Route Start Last Admin Trade Name Freq PRN Reason Stop Dose Admin Famotidine 20 mg 05/23/24 02:23 05/23/24 02:37 Famotidine/Pf 20 Mg/2 Ml Vial IVPUSH 05/23/24 02:24 20 mg ONCE ONE Administration Sodium Chloride 1,000 mls @ 999 mls/hr 05/23/24 02:23 05/23/24 03:40 Ns IV 05/23/24 03:23 Infused .Q1H1M STA Infusion Iohexol 85 ml 05/23/24 02:59 05/23/24 02:59 Iohexol 350 Mg/Ml 100 Ml Infus..Btl IV 05/23/24 03:00 85 ml ONCE ONE Administration Morphine Sulfate 4 mg 05/23/24 02:23 05/23/24 02:37 Morphine Sulfate 4 Mg/Ml Cartridge IVPUSH 05/23/24 02:24 4 mg ONCE STA Administration Protocol Ondansetron HCl 4 mg 05/23/24 02:23 05/23/24 02:37 Ondansetron Hcl 4 Mg/2 Ml Vial IVPUSH 05/23/24 02:24 4 mg ONCE ONE Administration Discharge Plan Discharge Patient Disposition: Admitted As Inpatient Prescriptions: No Action omeprazole 20 mg capsule,delayed release(DR/EC) 40 mg PO BID Qty: 360 0RF Movantik 12.5 mg tablet 12.5 mg PO QAM 90 Days Qty: 90 2RF ropinirole 1 mg Tablet 1 mg PO BEDTIME Lantus U-100 Insulin 100 unit/mL Solution 20 unit SUBCUT BEDTIME cetirizine [Zyrtec] 10 mg Tablet 10 mg PO DAILY prazosin 1 mg Capsule 1 mg PO BEDTIME glimepiride 1 mg Tablet 1 mg PO DAILY mirtazapine 45 mg Tablet 45 mg PO BEDTIME PRN (Reason: Insomnia) montelukast [Singulair] 10 mg Tablet 10 mg PO BEDTIME albuterol sulfate [ProAir HFA] 90 mcg/actuation Hfa Aerosol Inhaler 2 puff INHALATION QID PRN (Reason: Shortness Of Breath) bupropion HCl [Wellbutrin XL] 300 mg Tablet Extended Release 24 Hr 300 mg PO DAILY bupropion HCl [Wellbutrin XL] 150 mg Tablet Extended Release 24 Hr 150 mg PO DAILY Spiriva with HandiHaler 18 mcg Capsule, W/Inhalation Device 1 cap INHALATION DAILY duloxetine [Cymbalta] 60 mg Capsule,Delayed Release(Dr/Ec) 60 mg PO DAILY propranolol 20 mg tablet 20 mg PO BID Qty: 60 0RF Rx Instructions: Replaces metoprolol succinate. Lowers blood pressure and prevents migraines. fenofibrate micronized 134 mg capsule 1 tab PO QPM oxycodone-acetaminophen 5-325 mg tablet 1 tab PO Q8H PRN (Reason: pain) fluticasone propionate 50 mcg/actuation spray,suspension 2 spray intranasal DAILY lisinopril 2.5 mg tablet 1 tab PO QAM topiramate 50 mg tablet 1 tab PO BEDTIME [id number]-[id number] [Fioricet] 50-300-40 mg capsule 1 cap PO TID PRN (Reason: headache) Qty: 10 0RF Rx Instructions: Do not take this medication with other sources of Tylenol including Percocet cefuroxime axetil 500 mg tablet 500 mg PO BID Qty: 14 0RF diphenoxylate-atropine [Lomotil] 2.5-0.025 mg tablet 1 tab PO TID PRN (Reason: diarrhea) Qty: 7 0RF naproxen 250 mg tablet 250 mg PO Q12H PRN (Reason: pain) Qty: 10 0RF cyclobenzaprine 10 mg tablet 10 mg PO TID PRN (Reason: muscle spasm) Qty: 14 0RF nitrofurantoin monohyd/m-cryst [Macrobid] 100 mg capsule 100 mg PO BID Qty: 14 0RF Rx Instructions: must administer with a meal/food Gaviscon Extra Strength 254-237.5 mg/5 mL suspension 10 ml PO QID PRN (Reason: dyspepsia) Qty: 355 0RF prednisone 20 mg tablet 40 mg PO DAILY Qty: 10 0RF cyclobenzaprine 10 mg tablet 10 mg PO TID PRN (Reason: muscle spasm) Qty: 10 0RF ondansetron 4 mg tablet,disintegrating 4 mg PO Q8H PRN (Reason: nausea and vomiting) Qty: 7 0RF naproxen 500 mg tablet 500 mg PO BID PRN (Reason: pain) Qty: 20 0RF Flovent HFA 110 mcg/actuation HFA aerosol inhaler 2 puff inhalation BID meloxicam 15 mg tablet 15 mg PO DAILY 30 Days Qty: 30 0RF Print Language: Georgian
[2024-05-23] MEDS: ondansetron HCL 4 MG/2 ML VIAL IVPUSH ×3 (02:37→10:46)
[2024-05-23] MEDS: Morphine Sulfate 4 MG/ML CARTRIDGE IVPUSH ×2 (02:37→08:05)
[2024-05-23] MEDS: Famotidine/PF 20 MG/2 ML VIAL IVPUSH (02:37)
[2024-05-23] MEDS: 0.9 % Sodium Chloride 1,000 ML 999 ML IV (02:38)
[2024-05-23] MEDS: iohexoL 350 MG/ML 100 ML INFUS..BTL 85 ML IV (02:59)
[2024-05-23 03:59] LABS: CDiff Gene PCR NEGATIVE (Negative)
--- NOTE | 2024-05-23 06:50 | PC.NURSE ---
Patient is alert and oriented x3, VSS. Patient complains of diffuse abdominal pain, nausea, diarrhea. Patient has 2 episodes of diarrhea at ED, stool specimen collected for C-Diff and GI panel and sent to lab, results pending. Patient medicated per DEC, currently resting in bed, eyes closed, respirations even and unlabored, RR 14. Call mathias in patient's reach, plan of care ongoing.
[2024-05-23] MEDS: 0.9 % Sodium Chloride 1,000 ML 100 ML IVCONT (08:05)
--- NOTE | 2024-05-23 08:44 | PC.NURSE ---
resting quietly. skin pwd. no active vomiting. responded well to pain/nausea meds. hospitalist present with sharples machine operator. nsr on monitor. moist mm.
[2024-05-23 08:46] LABS: Adenovirus F 40/41 Not Detected (Not Detect.); Astrovirus Not Detected (Not Detect.); Campylobacter Not Detected (Not Detect.); Cryptosporidium Not Detected (Not Detect.); Cyclospora cayetanensis Not Detected (Not Detect.); E. coli EAEC Not Detected (Not Detect.); E. coli EPEC Not Detected (Not Detect.); E. coli ETEC Not Detected (Not Detect.); E. coli STEC Not Detected (Not Detect.); Entamoeba histolytica Not Detected (Not Detect.); Giardia lamblia Not Detected (Not Detect.); Norovirus GI/GII Not Detected (Not Detect.); Plesiomonas shigelloides Not Detected (Not Detect.); Rotavirus A Not Detected (Not Detect.); Salmonella Not Detected (Not Detect.); Sapovirus Not Detected (Not Detect.); Shigella sp./EIEC Not Detected (Not Detect.); Vibrio Not Detected (Not Detect.); Vibrio Cholerae Not Detected (Not Detect.); Yersinia enterocolitica Not Detected (Not Detect.)
[2024-05-23] MEDS: Enoxaparin Sodium 40 MG/0.4 ML SYRINGE SUBCUT (08:46)
--- NOTE | 2024-05-23 10:16 | PC.NURSE ---
RN to Rn with Evelia. Pt will be moved to overflow
--- NOTE | 2024-05-23 10:36 | PC.NURSE ---
report received from previous RN, patient transported to overflow bed 2, per MD and charge account clerk no cardiac rehabilitation program director order at this time. patient endorsing abdominal pain upon arrival and nausea, admitting MD made aware, states he will put in something for pain. patient able to stand and pivot to hospital stretcher. IV maintenance fluids running through PIV. patient transferred safetly, awaiting bed placement upstairs
--- NOTE | 2024-05-23 10:42 | PHA.MEDREC ---
Pharmacy Consult ? Medication Reconciliation Pharmacy has completed the medication reconciliation. Patient states they do not take bupropion 300 mg and only takes the 150 mg version listed in med rec. Patient also states they do not take Arnuity Ellipta or omeprazole. Patient states they are non-adherent to their Singulair, but they should still be on it. Leaving on med rec. Utilized interpreter and translator services.
--- NOTE | 2024-05-23 11:00 | PC.NURSE ---
patient ambulated with steady gait to bathroom.
[2024-05-23] MEDS: oxyCODONE HCl Immed Release 5 MG TABLET 10 MG PO (11:02)
[2024-05-23] MEDS: cefTRIAXone sodium 2 GM in 0.9 % Sodium Chloride 50 ML IV (11:03)
[2024-05-23] MEDS: 0.9 % Sodium Chloride 1,000 ML 125 ML IVCONT ×2 (11:09→16:58)
[2024-05-23] MEDS: DULoxetine HCl 60 MG CAPSULE.DR PO (11:24)
[2024-05-23] MEDS: Gabapentin 100 MG CAPSULE PO ×3 (11:24→20:28)
[2024-05-23] MEDS: lisinopriL 20 MG TABLET PO (11:25)
--- NOTE | 2024-05-23 11:40 | PC.NURSE ---
family member at bedside, patient endorsing some pain relief after medication administration, awaiting inpatient bed placement at this time.
[2024-05-23 11:57] LABS: Glucose, Whole Blood 149 mg/dL (60-115)
--- NOTE | 2024-05-23 12:18 | PC.NURSE ---
patient provided with meal tray
--- NOTE | 2024-05-23 12:51 | PM.IMHP ---
History of Present Illness Date of Service: 05/23/24 Chief Complaint: Abdominal pain nausea and vomiting 53-year-old female with a history of esophagitis, GERD, diabetes mellitus, hyperlipidemia, hypertension, asthma, COPD , hepatosplenomegaly, migraines who presents emergency department for evaluation of abdominal pain, nausea, vomiting x2 days. The patient states she has had multiple episodes of emesis and at least 10 episodes of diarrhea per day. She is complaining of abdominal pain. She points to her epigastric area when asked to localize the pain. She describes the pain is a burning sensation which is constant and is 8/10 at its worst. She also states she was burping and has a bad taste in the back of her throat. The patient was seen in the emergency department on 05/16/2020 for COVID-19 and was prescribed ondansetron and naproxen but was not prescribed antibiotics. In the emergency department, labs were unremarkable save a urine with active sediment. CTA of the abdomen showed fluid within portions of the colon which could be associated with diarrhea. No other acute findings. Given her lack of response to analgesia she will be admitted Review of Systems Review of Systems: Denies chest pain Denies fever chills Denies shortness of breath Admits to nausea vomiting diarrhea PMFSH Medical History (Updated 05/23/24 @ 12:59 by David Medeiros DO) Hemiplegic migraine HLD (hyperlipidemia) HTN (hypertension) Migraines Sciatica Asthma COPD (chronic obstructive pulmonary disease) Diabetes Family History Sister Migraine Surgical History Hx of colonoscopy History of esophagogastroduodenoscopy (EGD) Hx laparoscopic cholecystectomy History of ear surgery H/O: hysterectomy Social History Household Members: None Housing: Apartment Do you presently have visiting nurse or other home services: No Alcohol intake: never Patient Tobacco Use Status: Current everyday Tobacco user Tobacco use type: Cigarette Cigarette Packs Per Day: 0.4 Cigarettes Per Day: 10 Years Smoked: 20 Smoked in Last 30 Days: Yes Second Hand Smoke Exposure: Yes Advance Directives: No Advance Directives Information Provided: No Do you have a plan to hurt others: No Plan Patient : No service: No Current occupational status: other Meds Allergies Allergy/AdvReac Type Severity Reaction Status Date / Time ENVIRONMENTAL Allergy Mild Dry Eye Uncoded 05/22/24 22:51 Active Medications: Current Medications Acetaminophen (Acetaminophen 325 Mg Tablet) 650 mg PO Q6H PRN PRN Reason: Pain, Mild (Pain Scale 1-3), fever or headache Al Hydroxide/Mg Hydroxide (Magnesium Hydrox/Alum Hydrox 30 Ml Oral.Susp) 30 ml PO Q4H PRN PRN Reason: Heartburn Albuterol Sulfate (Albuterol Sulfate (0.083%) 2.5 Mg/3 Ml Vial.Neb) 2.5 mg INHALE Q4H PRN PRN Reason: wheezing Albuterol Sulfate (Albuterol Sulfate 90 Mcg 8 Gm Inhaler) 2 puff INHALE Q4H PRN PRN Reason: Shortness Of Breath Or Wheezing Baclofen (Baclofen 10 Mg Tablet) 10 mg PO TID [facility] Bupropion HCl (Bupropion Hcl Xl 150 Mg Tab.Er.24h) 150 mg PO DAILY [facility] Calcium Carbonate (Calcium Carbonate 750 Mg Tab.Chew) 750 mg PO Q4H PRN PRN Reason: Heartburn Duloxetine HCl (Duloxetine Hcl 60 Mg Capsule.Dr) 60 mg PO DAILY [facility] Last Admin: 05/23/24 11:24 Dose: 60 mg Enoxaparin Sodium (Enoxaparin Sodium 40 Mg/0.4 Ml Syringe) 40 mg SUBCUT Q24H [facility] Last Admin: 05/23/24 08:46 Dose: 40 mg Fenofibrate (Fenofibrate,Micronized 134 Mg Capsule) 134 mg PO DAILY@1800 [facility] Fluticasone Propionate (Fluticasone Propionate Nasal 16 Gm [place]) 2 spray NOSTRIL-B DAILY [facility] Gabapentin (Gabapentin 100 Mg Capsule) 100 mg PO TID [facility] Last Admin: 05/23/24 11:24 Dose: 100 mg Glucose (Glucose Gel 15 Gm Gel..Gram.) 15 gm PO Q15M PRN; Protocol PRN Reason: per Hypoglycemia Standing Ord. Dextrose (D10) 250 mls @ 750 mls/hr IV Q15M PRN; Protocol PRN Reason: per Hypoglycemia Standing Ord. Sodium Chloride (Ns) 1,000 mls @ 125 mls/hr IVCONT .Q8H [facility] Last Admin: 05/23/24 11:09 Dose: 125 mls/hr Insulin Glargine (Insulin Glargine,Hum.Rec.Anlog 100 Unit/Ml 10 Ml Vial) 26 unit SUBCUT BEDTIME [facility] Insulin Human Lispro (Insulin Lispro 100 Unit/Ml 3 Ml Vial) 0 unit SUBCUT QIDACHS [facility]; Protocol Last Admin: 05/23/24 11:51 Dose: Not Given Lisinopril (Lisinopril 20 Mg Tablet) 20 mg PO DAILY [facility]; Protocol Last Admin: 05/23/24 11:25 Dose: 20 mg Loratadine (Loratadine 10 Mg Tablet) 10 mg PO DAILY [facility] Magnesium Hydroxide (Milk Of Magnesia 30 Ml Oral.Susp) 30 ml PO DAILY PRN PRN Reason: Constipation Melatonin (Melatonin 3 Mg Tablet) 6 mg PO BEDTIME PRN PRN Reason: Insomnia Mirtazapine (Mirtazapine 15 Mg Tablet) 45 mg PO BEDTIME PRN PRN Reason: Insomnia Montelukast Sodium (Montelukast Sodium 10 Mg Tablet) 10 mg PO BEDTIME [facility] Morphine Sulfate (Morphine Sulfate 4 Mg/Ml Cartridge) 4 mg IVPUSH Q4H PRN; Protocol PRN Reason: Pain, Severe (Pain Scale 7-10) Ondansetron HCl (Ondansetron Hcl 4 Mg/2 Ml Vial) 4 mg IVPUSH Q8H PRN PRN Reason: Nausea and Vomiting Last Admin: 05/23/24 10:46 Dose: 4 mg Oxycodone HCl (Oxycodone Hcl Immed Release 5 Mg Tablet) 10 mg PO Q4H PRN PRN Reason: Pain, Moderate(Pain Scale 4-6) Last Admin: 05/23/24 11:02 Dose: 10 mg Prazosin HCl (Prazosin Hcl 1 Mg Capsule) 1 mg PO BEDTIME [facility]; Protocol Propranolol HCl (Propranolol Hcl 40 Mg Tablet) 40 mg PO BID [facility]; Protocol Pseudoephedrine HCl (Pseudoephedrine Hcl 30 Mg Tablet) 30 mg PO Q4H PRN PRN Reason: congestion Ropinirole HCl (Ropinirole Hcl 1 Mg Tablet) 1 mg PO BEDTIME [facility] Sodium Chloride (0.9 % Sodium Chloride Flush 3 Ml Syringe) [facility] Last Admin: 05/23/24 08:46 Dose: Not Given Trazodone HCl (Trazodone Hcl 50 Mg Tablet) 50 mg PO BEDTIME PRN PRN Reason: Insomnia Home Medications ?Medication ?Instructions ?Recorded ?Confirmed ?Last Taken ?Type bupropion HCl 150 mg 24 hr tablet, 150 mg PO DAILY 10/06/20 05/23/24 4 Days Ago History extended release (Wellbutrin XL) ~05/19/24 cetirizine 10 mg tablet (Zyrtec) 10 mg PO DAILY 10/06/20 05/23/24 4 Days Ago History ~05/19/24 duloxetine 60 mg capsule,delayed 60 mg PO DAILY 10/06/20 05/23/24 4 Days Ago History release (Cymbalta) ~05/19/24 insulin glargine 100 unit/mL 26 unit subcut BEDTIME 10/06/20 05/23/24 4 Days Ago History subcutaneous solution (Lantus ~05/19/24 U-100 Insulin) mirtazapine 45 mg tablet 45 mg PO BEDTIME PRN Insomnia 10/06/20 05/23/24 Unknown History montelukast 10 mg tablet 10 mg PO BEDTIME 10/06/20 05/23/24 4 Days Ago History (Singulair) ~05/19/24 prazosin 1 mg capsule 1 mg PO BEDTIME 10/06/20 05/23/24 4 Days Ago History ~05/19/24 ropinirole 1 mg tablet 1 mg PO BEDTIME 10/06/20 05/23/24 4 Days Ago History ~05/19/24 tiotropium bromide 18 mcg capsule 1 cap inhalation DAILY 10/06/20 05/23/24 4 Days Ago History with inhalation device (Spiriva ~05/19/24 with HandiHaler) fenofibrate micronized 134 mg 1 tab PO DAILY@1800 05/24/21 05/23/24 4 Days Ago History capsule ~05/19/24 fluticasone propionate 50 2 spray intranasal DAILY 05/24/21 05/23/24 4 Days Ago History mcg/actuation nasal ~05/19/24 spray,suspension albuterol sulfate 2.5 mg/3 mL 2.5 mg inhalation Q4H PRN wheezing 05/23/24 05/23/24 Unknown History (0.083 %) solution for nebulization albuterol sulfate 90 mcg/actuation 2 puff inhalation Q4H PRN 05/23/24 05/23/24 Unknown History aerosol inhaler (Ventolin HFA) Shortness Of Breath Or Wheezing baclofen 10 mg tablet 10 mg PO TID muscle spasm 05/23/24 05/23/24 4 Days Ago History ~05/19/24 clotrimazole 1 % topical cream 1 appl topical Q12H PRN Rash 05/23/24 05/23/24 Unknown History diclofenac sodium 1 % topical gel 2 g topical QID PRN pain 05/23/24 05/23/24 Unknown History dulaglutide 1.5 mg/0.5 mL 1.5 mg subcut TH@0900 05/23/24 05/23/24 Unknown History subcutaneous pen injector (Trulicity) gabapentin 100 mg capsule 100 mg PO TID 05/23/24 05/23/24 4 Days Ago History ~05/19/24 lisinopril 20 mg tablet 20 mg PO DAILY 05/23/24 05/23/24 4 Days Ago History ~05/19/24 propranolol 40 mg tablet 40 mg PO BID 05/23/24 05/23/24 4 Days Ago History ~05/19/24 pseudoephedrine HCl 30 mg tablet 30 mg PO Q4H PRN congestion 05/23/24 05/23/24 Unknown History (Sudogest) trazodone 50 mg tablet 50 mg PO BEDTIME PRN Insomnia 05/23/24 05/23/24 Unknown History Physical Exam Vital Signs and Narrative: Vital Signs: Last Vital Signs Temp 98.1 F 05/23/24 08:43 Pulse 75 05/23/24 08:43 Resp 18 05/23/24 08:43 BP 144/81 H 05/23/24 11:25 Pulse Ox 93 05/23/24 08:43 O2 Del Method Room Air 05/23/24 08:43 BMI result Body Mass Index 31.7 Const: Other: Awake alert ill-appearing HEENT: Other: Membranes dry Resp: Other: Clear to auscultation bilaterally no rales rhonchi or wheezes Cardio: Other: No S4; positive S1-S2; no S3 murmurs rubs or gallops GI: Other: Soft minimally tender across lower abdomen. Hyperactive bowel sounds Neuro: Other: Cranial nerves 2-12 grossly intact as tested. Motor is 5/5 all extremities sensation intact cognition appropriate. Gait not observed Extrem: Other: No edema bilaterally Results Labs 05/22/24 22:59 05/22/24 22:59 Labs: Laboratory Results - last 24 hr 05/22/24 05/23/24 05/23/24 22:59 03:02 11:50 MCV 88.1 MCH 31.6 MCHC 35.9 H RDW 12.7 Plt Count 339 MPV 10.1 Immature Gran % (Auto) 0.2 Neut % (Auto) 65.1 Lymph % (Auto) 27.1 Lynn % (Auto) 6.2 Eos % (Auto) 1.2 Baso % (Auto) 0.2 Lymph # (Auto) 2.3 Lynn # (Auto) 0.5 Eos # (Auto) 0.1 Baso # (Auto) 0.0 Abs Immat Gran (auto) 0.02 Absolute Neuts (auto) 5.5 Absolute Nucleated RBC 0.000 Nucleated RBC % (auto) 0.0 Anion Gap 17 Estim Creat Clear Calc 87.1 Estimated GFR > 60 POC Glucose 149 H Random Glucose 170 H Calcium 10.0 Total Bilirubin 0.5 AST 17 ALT 23 Alkaline Phosphatase 146 H Total Protein 8.2 H Albumin 4.6 Lipase 26 Urine Color Yellow Urine Appearance Cloudy Urine pH 5.5 Ur Specific [place] 1.025 Urine Protein Trace Urine Glucose (UA) Negative Urine Ketones Negative Urine Blood Trace H Urine Nitrite Negative Ur Leukocyte Esterase Moderate (2+) H Urine RBC 3-5 H Urine WBC >50 H Ur Squamous Epith Cells 6-10 Urine Bacteria 1+ Hyaline Casts 0-2 Stl C. cayetanensis PCR Not Detected Stool Rotavirus A PCR Not Detected Stl Adenov F 40/41 PCR Not Detected Stool Astrovirus (PCR) Not Detected Stool Campylobacter PCR Not Detected Stool Cryptosporidium PCR Not Detected Stl Sh Tox Pr E STEC PCR Not Detected Stool E coli O157 PCR Not applicable Stl Enterotoxigenic E PCR Not Detected Stool EPEC (PCR) Not Detected Stool EAEC (PCR) Not Detected Stl E. histolytica PCR Not Detected Stool Giardia Lamblia PCR Not Detected Stl P. shigelloides PCR Not Detected Stool Salmonella PCR Not Detected Stool Sapovirus (PCR) Not Detected Stl Shigella/EIEC PCR Not Detected St Y.enterocolitica PCR Not Detected Stool Vibrio (PCR) Not Detected Stl Vibrio cholerae PCR Not Detected Stl Norovirus GI/GII PCR Not Detected C. difficile Tox B Gene NEGATIVE COVID-19 (PORFIRIO) Negative COVID-19 Clin Com See Note Influenza Type A (TUSHAR) Negative Influenza Type B (TUSHAR) Negative Influenza A & B Note See Note Imaging Radiologist's Impressions: Impressions Abdomen/Pelvis CT 05/23/24 03:00 IMPRESSION: 1. Fluid within portions of the colon, a finding which can be associated with diarrhea. No additional acute findings identified. 2. Hepatosplenomegaly. 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
[2024-05-23] MEDS: Baclofen 10 MG TABLET PO ×2 (15:15→20:30)
[2024-05-23] MEDS: 0.9 % Sodium Chloride Flush 3 ML SYRINGE IVFLUSH (15:16)
[2024-05-23 16:46] LABS: Glucose, Whole Blood 133 mg/dL (60-115)
[2024-05-23] MEDS: Fenofibrate,Micronized 134 MG CAPSULE PO (16:58)
[2024-05-23 20:26] LABS: Glucose, Whole Blood 166 mg/dL (60-115)
[2024-05-23] MEDS: Insulin Glargine,Hum.rec.anlog 100 UNIT/ML 10 ML VIAL 26 UNIT SUBCUT (20:27)
[2024-05-23] MEDS: rOPINIRole HCL 1 MG TABLET PO (20:28)
[2024-05-23] MEDS: Insulin Lispro 100 UNIT/ML 3 ML VIAL SUBCUT (20:28)
[2024-05-23] MEDS: Propranolol HCL 40 MG TABLET PO (20:29)
[2024-05-23] MEDS: Prazosin HCL 1 MG CAPSULE PO (20:29)
[2024-05-23] MEDS: Montelukast Sodium 10 MG TABLET PO (20:30)
[2024-05-24] MEDS: 0.9 % Sodium Chloride 1,000 ML 125 ML IVCONT ×2 (00:08→08:10)
[2024-05-24 03:36] VITALS: BP 123/71; PULSE 76; RESP 17; TEMP 36.3; O2SAT 95
[2024-05-24 06:46] LABS: Alanine Aminotransferase 30 U/L (0-31); Albumin Level 3.8 g/dL (3.5-5.0); Alkaline Phosphatase 136 U/L (39-117); Anion Gap 10 (12-20); Aspartate Amino Transferase 24 U/L (5-31); Bilirubin Total 0.5 mg/dL (0.0-1.0); Blood Urea Nitrogen 8 mg/dL (9-16); Calcium 8.9 mg/dL (8.4-10.2); Carbon Dioxide 23 mmol/L (22-29); Chloride 110 mmol/L (96-108); Creatinine Clr Calc Pharmacy 99.8; Estimated Glomerular Filt Rate > 60; Glucose Random 123 mg/dL (60-115); Potassium 3.5 mmol/L (3.3-5.1); Sodium 139 mmol/L (135-145); Total Protein 6.6 g/dL (6.5-8.0)
[2024-05-24 06:52] VITALS: BP 135/78; PULSE 70; RESP 17; TEMP 36.7; O2SAT 95
[2024-05-24 06:58] LABS: Hematocrit 33.1 % (37.0-47.0); Hemoglobin 11.9 g/dl (12.0-16.0); Mean Corpuscular Hemoglobin 32.2 pg (27.0-33.0); Mean Corpuscular Volume 89.5 fL (80.0-98.0); Mean Platelet Volume 10.4 fL (9.4-12.3); Platelet Count 238 X10*3/uL (160-400); Red Cell Distribution Width 12.6 % (11.0-16.0); White Blood Count 6.6 X10*3/uL (4.8-10.8)
[2024-05-24 07:19] LABS: Glucose, Whole Blood 127 mg/dL (60-115)
[2024-05-24 08:07] VITALS: BP 136/65
[2024-05-24 08:10] VITALS: PULSE 72
[2024-05-24] MEDS: Propranolol HCL 40 MG TABLET PO (08:10)
[2024-05-24] MEDS: lisinopriL 20 MG TABLET PO (08:10)
[2024-05-24] MEDS: Enoxaparin Sodium 40 MG/0.4 ML SYRINGE SUBCUT (08:10)
[2024-05-24] MEDS: buPROPion HCl XL 150 MG TAB.ER.24H PO (08:10)
[2024-05-24] MEDS: Gabapentin 100 MG CAPSULE PO (08:10)
[2024-05-24] MEDS: DULoxetine HCl 60 MG CAPSULE.DR PO (08:11)
[2024-05-24] MEDS: Loratadine 10 MG TABLET PO (08:11)
[2024-05-24] MEDS: Baclofen 10 MG TABLET PO (08:11)
[2024-05-24] MEDS: Loperamide HCl 2 MG CAPSULE 4 MG PO (09:56)
[2024-05-24] MEDS: Famotidine 20 MG TABLET PO (09:56)
--- NOTE | 2024-05-24 11:10 | MHC.CM.PN ---
Addendum entered by Ruth Garland 05/24/24 13:41: Patient brenda diet. She is discharged to home self care. She has arranged for a ride home. Original Note: TORI 05/24/24 Female 53 DX Gastritis. She lives with a friend. She is independent with ADLS. She uses a cane prn. Per MD rounds she will discharge this afternoon after tolerating diet. She has arranged for transportation home. Her PCP is Dr Box. A task has been sent to CM office to update PCP on file. A HCP has been documented and scanned into the EMR. A copy of the document has been given to the patient.
[2024-05-24 11:19] LABS: Glucose, Whole Blood 123 mg/dL (60-115)
--- NOTE | 2024-05-24 13:35 | PM.DS ---
DS: Providers Provider Date of Service: 05/24/24 Date of admission: 05/23/24 07:40 Primary care physician: Unknown Physician DS: Diagnosis Discharge Diagnosis (1) Abdominal pain: Status: Acute (2) Nausea & vomiting: Status: Acute (3) Diabetes: Status: Acute (4) HTN (hypertension): Status: Acute DS: Summary Hospital Course Hospital Course: History of presenting illness Date of Service: 05/23/24 Chief Complaint: Abdominal pain nausea and vomiting 53-year-old female with a history of esophagitis, GERD, diabetes mellitus, hyperlipidemia, hypertension, asthma, COPD , hepatosplenomegaly, migraines who presents emergency department for evaluation of abdominal pain, nausea, vomiting x2 days. The patient states she has had multiple episodes of emesis and at least 10 episodes of diarrhea per day. She is complaining of abdominal pain. She points to her epigastric area when asked to localize the pain. She describes the pain is a burning sensation which is constant and is 8/10 at its worst. She also states she was burping and has a bad taste in the back of her throat. The patient was seen in the emergency department on 05/16/24 for COVID-19 and was prescribed ondansetron and naproxen but was not prescribed antibiotics. In the emergency department, labs were unremarkable save a urine with active sediment. CTA of the abdomen showed fluid within portions of the colon which could be associated with diarrhea. No other acute findings. Given her lack of response to analgesia she will be admitted. Hospital course 53-year-old female with history of esophagitis, GERD, diabetes, hyperlipidemia, asthma, COPD, migraine was admitted to [facility] with symptoms of abdominal pain nausea vomiting and diarrhea couple days' duration, patient was admitted to medical floor with a diagnosis of acute gastroenteritis, likely related to recent COVID-19 infection, patient treated with IV fluids, analgesics, stool panel as well as C diff negative, diet was gradually advanced, patient placed on Pepcid due to acidity likely due to use of Naprosyn, since now patient is tolerating diet with no further diarrhea therefore she is being discharged home with recommendation to follow bland diet for next couple days she is recommended to continue all home medications except for Naprosyn, she is being sent home on Pepcid 20 mg daily, since patient is intolerant of Prilosec. Recommend to continue all other home medications for diabetes and high blood pressure. Time Attestation Discharge Coordination Time (in mins): 34 Quality: Safe Use of Opioids Does Pt have an Active Cancer Diagnosis on the Problem List?: No Quality: Stroke Does the patient have a stroke diagnosis?: No Physical Exam Vital Signs: Vital Signs: Last Vital Signs Temp 98.1 F 05/24/24 06:52 Pulse 72 05/24/24 08:10 Resp 17 05/24/24 06:52 BP 136/65 05/24/24 08:07 Pulse Ox 95 05/24/24 06:52 O2 Del Method Room Air 05/24/24 06:52 BMI result Body Mass Index 31.9 Const: Other: Gen: in no acute distress HEENT: sclera anicteric Neck: supple Lungs: clear to auscultation bilaterally Heart: regular rate and rhythm, no murmurs Abd: soft, mild epigastric discomfort , bowel sounds audible non-distended Ext: no edema Skin: warm/well-perfused Neuro: alert and oriented x3, no focal findings Psych: appropriate affect DS: Data Data Completed and Pending Labs on day of discharge: Laboratory Results - last 24 hr 05/23/24 05/23/24 05/24/24 16:43 20:03 05:44 WBC 6.6 RBC 3.70 L Hgb 11.9 L Hct 33.1 L MCV 89.5 MCH 32.2 MCHC 36.0 H RDW 12.6 Plt Count 238 D MPV 10.4 Absolute Nucleated RBC 0.000 Nucleated RBC % (auto) 0.0 Sodium 139 Potassium 3.5 Chloride 110 H Carbon Dioxide 23 Anion Gap 10 L BUN 8 L Creatinine 0.71 Estim Creat Clear Calc 99.8 Estimated GFR > 60 POC Glucose 133 H 166 H Random Glucose 123 H Calcium 8.9 D Total Bilirubin 0.5 AST 24 ALT 30 Alkaline Phosphatase 136 H Total Protein 6.6 Albumin 3.8 05/24/24 05/24/24 07:07 11:13 WBC RBC Hgb Hct MCV MCH MCHC RDW Plt Count MPV Absolute Nucleated RBC Nucleated RBC % (auto) Sodium Potassium Chloride Carbon Dioxide Anion Gap BUN Creatinine Estim Creat Clear Calc Estimated GFR POC Glucose 127 H 123 H Random Glucose Calcium Total Bilirubin AST ALT Alkaline Phosphatase Total Protein Albumin Discharge Plan Discharge Anticipated Discharge Date/Time: 05/24/24 13:29 Patient Disposition: Home, Self-Care Discharge Diagnosis: Gastroenteritis Referrals: Physician,Unknown J [Primary Care Provider] - 1 Week Discharge Medications: New famotidine 20 mg Tablet 20 mg PO DAILY Qty: 30 0RF Continued ropinirole 1 mg Tablet 1 mg PO BEDTIME insulin glargine [Lantus U-100 Insulin] 100 unit/mL Solution 26 unit SUBCUT BEDTIME cetirizine [Zyrtec] 10 mg Tablet 10 mg PO DAILY prazosin 1 mg Capsule 1 mg PO BEDTIME mirtazapine 45 mg Tablet 45 mg PO BEDTIME PRN (Reason: Insomnia) montelukast [Singulair] 10 mg Tablet 10 mg PO BEDTIME bupropion HCl [Wellbutrin XL] 150 mg Tablet Extended Release 24 Hr 150 mg PO DAILY tiotropium bromide [Spiriva with HandiHaler] 18 mcg Capsule, W/Inhalation Device 1 cap INHALATION DAILY duloxetine [Cymbalta] 60 mg Capsule,Delayed Release(Dr/Ec) 60 mg PO DAILY fenofibrate micronized 134 mg capsule 1 tab PO DAILY@1800 fluticasone propionate 50 mcg/actuation spray,suspension 2 spray intranasal DAILY albuterol sulfate 2.5 mg /3 mL (0.083 %) solution for nebulization 2.5 mg inhalation Q4H PRN (Reason: wheezing) trazodone 50 mg tablet 50 mg PO BEDTIME PRN (Reason: Insomnia) lisinopril 20 mg tablet 20 mg PO DAILY propranolol 40 mg tablet 40 mg PO BID baclofen 10 mg tablet 10 mg PO TID pseudoephedrine HCl [Sudogest] 30 mg tablet 30 mg PO Q4H PRN (Reason: congestion) gabapentin 100 mg capsule 100 mg PO TID albuterol sulfate [Ventolin HFA] 90 mcg/actuation HFA aerosol inhaler 2 puff INHALATION Q4H PRN (Reason: Shortness Of Breath Or Wheezing) clotrimazole 1 % cream 1 appl topical Q12H PRN (Reason: Rash) diclofenac sodium 1 % gel 2 g topical QID PRN (Reason: pain) Trulicity 1.5 mg/0.5 mL pen injector 1.5 mg subcut TH@0900 ondansetron 4 mg tablet,disintegrating 4 mg PO Q8H PRN (Reason: nausea and vomiting) Qty: 7 0RF Discontinued naproxen 500 mg tablet 500 mg PO BID PRN (Reason: pain) Qty: 20 0RF Discharge Orders: Discharge Order (Routine); Ordered 05/24/24 Ordered By: aPrul Slater Diet: bland diet/rice pudding Activity on Discharge: As tolerated Stand Alone Forms: Patient Portal Discharge page Print Language: [place] Citizen Care Plan Goals: Take Pepcid for acidity avoid fruits and vegetable for next 2-3 days/take bland diet like bread rice, pudding, banana, jello and soup Avoid Naprosyn, Advil Motrin take Tylenol for pain Health Concerns: Take all other home medications as above Plan of Treatment: Outpatient follow-up with primary care physician call for appointment Assessment: As above Patient Instructions: Gastroenteritis (DC)
== END 2024-05-24 13:56 | disposition home or self-care (01) ==
LOC: HO.ED 05-23 07:26 → HO.EDOVER 05-23 07:51 → HO.S3 05-23 12:56
PROVIDERS: Admitting Provider Hospitalist; Emergency Provider Emergency Medicine Emergency Medical Services; PCP Internal Medicine; Visit Provider Hospitalist
DX: K52.9 Noninfective gastroenteritis and colitis, unspecified (principal); R11.2 Nausea with vomiting, unspecified; R10.84 Generalized abdominal pain; E11.9 Type 2 diabetes mellitus without complications; I10 Essential (primary) hypertension; R16.2 Hepatomegaly with splenomegaly, not elsewhere classified; E78.5 Hyperlipidemia, unspecified; J44.9 Chronic obstructive pulmonary disease, unspecified; Z79.899 Other long term (current) drug therapy
CPT/HCPCS: 36415; 74177; 80053; 81001; 82947; 83690; 85025; 85027; 87086; 87493; 87502; 87507; 87635; 96361; 96365; 96372; 96375; 96376; 99221; 99285; J0696; J1650; J2270; J2405; Q9967

== ENCOUNTER → 2024-05-23 07:40 | Outpatient (BNV) | payer MEDICAID, SELFPAY | PROVIDERS: Admitting Provider Hospitalist; Emergency Provider Emergency Medicine Emergency Medical Services; Visit Provider Hospitalist | DX: R10.84 Generalized abdominal pain (principal); R11.2 Nausea with vomiting, unspecified; E11.9 Type 2 diabetes mellitus without complications; I10 Essential (primary) hypertension | CPT/HCPCS: 99223; 99239 ==

== ENCOUNTER 2024-06-22 09:25 | Outpatient (REF) | payer MEDICAID, SELFPAY ==
--- NOTE | ~2024-06-22 | XR_ITS ---
EXAMINATION: XR FINGER, RIGHT CLINICAL INFORMATION: Right index finger pain and swelling. COMPARISON: None available. TECHNIQUE: PA view of the right hand as well as oblique and lateral views of the right index finger. FINDINGS: Soft tissue swelling along the radial aspect of the second proximal phalanx without radiopaque foreign body or soft tissue calcification. No adjacent osseous erosion or periosteal reaction. No acute fracture or dislocation. Normal carpal alignment. Joint space narrowing and small marginal osteophytes scattered throughout the interphalangeal joints. No periarticular erosion or osteopenia. XR/XR finger RT min 2V IMPRESSION: 1. Soft tissue swelling along the radial aspect of the second proximal phalanx without radiopaque foreign body or soft tissue calcification. 2. 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 Electronically signed by: Dimitry Lovett MD 07/12/2024 08:56 PM EDT
== END 2024-06-22 09:26 | disposition home or self-care (01) ==
LOC: HO.HHCX 09:25
PROVIDERS: Visit Provider Emergency Medicine
DX: M79.644 Pain in right finger(s) (principal); R60.0 Localized edema
CPT/HCPCS: 73140

== ENCOUNTER 2024-06-23 07:50 | Outpatient (AMB) | payer MEDICAID, SELFPAY ==
--- NOTE | 2024-06-23 08:18 | A.OFFVIS_ITS ---
Vital Signs 06/23/24 08:27 Height 5 ft 4 in Weight 183 lb BMI 31.4 BP 164/90 H Blood Pressure Location Rt brachial Position Sitting Pulse 88 Intake Visit Reasons: Right index finger abscess Intake Note: Patient referred by pcp Dr. Box for abscess on Rt index finger X2wks. Patient c/o: painful, oozing, can't bend finger. On Doxycycline X7d. Started abx yesterday. Senior Enlisted Advisor Required: No Accompanied by: sister Jessica Allergies ENVIRONMENTAL Allergy (Mild, Uncoded 06/23/24 08:22) Dry Eye Medication List - Last Reconciled 06/23/24 by Harmeet Tarango MD albuterol sulfate 2.5 mg inhalation Q4H PRN albuterol sulfate 90 mcg/actuation (Ventolin HFA) 2 puffs inhalation Q4H PRN baclofen 10 mg PO TID bupropion HCl XL (Wellbutrin XL) 150 mg PO DAILY cetirizine (Zyrtec) 10 mg PO DAILY clotrimazole 1% 1 appl topical Q12H PRN diclofenac sodium 1% 2 grams topical QID PRN dulaglutide (Trulicity) 1.5 mg subcut TH@0900 duloxetine (Cymbalta) 60 mg PO DAILY famotidine 20 mg PO DAILY fenofibrate micronized 1 tab PO DAILY@1800 fluticasone propionate 50 mcg/actuation 2 sprays intranasal DAILY gabapentin 100 mg PO TID insulin glargine (Lantus U-100 Insulin) 26 units subcut BEDTIME lisinopril 20 mg PO DAILY mirtazapine 45 mg PO BEDTIME PRN montelukast (Singulair) 10 mg PO BEDTIME ondansetron 4 mg PO Q8H PRN prazosin 1 mg PO BEDTIME propranolol 40 mg PO BID pseudoephedrine HCl (Sudogest) 30 mg PO Q4H PRN ropinirole 1 mg PO BEDTIME tiotropium bromide (Spiriva with HandiHaler) 1 cap inhalation DAILY trazodone 50 mg PO BEDTIME PRN HPI Comments Details: Patient was with 2 week history of an infection/abscess involving the palmar aspect of the PIP area of the right index finger. She was recently given antibiotics by her medical doctor and now presents here for further evaluation She has never had this before.. Patient presents with a family member (sister) who also helped interpret. Chart was reviewed and patient evaluated [facility] Medical History (Updated 05/26/24 @ 00:01 by Ban Quevedo) Hemiplegic migraine HLD (hyperlipidemia) HTN (hypertension) Migraines Sciatica Asthma COPD (chronic obstructive pulmonary disease) Diabetes Surgical History (Updated 06/23/24 @ 08:37 by Harmeet Tarango MD) Hx of colonoscopy History of esophagogastroduodenoscopy (EGD) Hx laparoscopic cholecystectomy History of ear surgery H/O: hysterectomy Family History Sister Migraine Social History Household Members: None Housing: Apartment Do you presently have visiting nurse or other home services: No Alcohol intake: never Patient Tobacco Use Status: Current everyday Tobacco user Tobacco use type: Cigarette Cigarette Packs Per Day: 0.4 Cigarettes Per Day: 7 Years Smoked: 20 Second Hand Smoke Exposure: Yes service: No Current occupational status: other Physical Exam Vital Signs: Last Vital Signs Pulse 88 06/23/24 08:27 BP 164/90 H 06/23/24 08:27 BMI result Body Mass Index 31.4 Extrem Other: Palmar aspect of right index finger has a pimple like growth. On gentle pressure, permanent serial was expressed and then clear fluid beyond this. Patient tolerated this well. Bacitracin and dressing were applied. Assessment & Plan Assessment & Plan (1) Infection of index finger: Code(s): L08.9 - Local infection of the skin and subcutaneous tissue, unspecified Category: Surgical Plan Patient was to complete her antibiotic course, she will be going to script for analgesics, local instructions including warm compresses and, and patient will see me as directed or p.r.n.. All questions answered. Medications: New hydrocodone-acetaminophen 5-325 mg Partial Fill upon patient request. 1 tab PO Q4-6H PRN 30 tabs 0RF pain Coding Level of Care Code New Pt Level 4 (51535) Diagnoses Infection of index finger L08.9
[2024-06-23 08:27] VITALS: BP 164/90; PULSE 88; BMI 31.4
== END 2024-06-23 08:35 | disposition home or self-care (01) ==
LOC: HO.HGS 07:50
PROVIDERS: PCP Internal Medicine; Visit Provider Surgery
DX: L08.9 Local infection of the skin and subcutaneous tissue, unspecified (principal)
CPT/HCPCS: 99204

== ENCOUNTER → 2024-06-23 07:50 | Outpatient (BNVA) | payer MEDICAID, SELFPAY | PROVIDERS: PCP Internal Medicine; Visit Provider Surgery | DX: L08.9 Local infection of the skin and subcutaneous tissue, unspecified (principal) | CPT/HCPCS: 99202 ==

== ENCOUNTER 2024-09-09 11:04 | Outpatient (REF) | payer MEDICAID, SELFPAY ==
--- NOTE | ~2024-09-09 | XR_ITS ---
EXAMINATION: XR CHEST CLINICAL INFORMATION: Cough and wheezing. Evaluate for pneumonia. COMPARISON: Most recent chest radiograph dated 10/22/2021. TECHNIQUE: 2 views of the chest were obtained. FINDINGS: The lungs are clear. The cardiomediastinal silhouette is normal in size. There is no pleural effusion or pneumothorax. No acute osseous abnormality. XR/XR chest 2V IMPRESSION: No acute cardiopulmonary findings. Electronically signed by: Dimitry Lovett MD 09/09/2024 02:50 PM [facility]
== END 2024-09-09 11:05 | disposition home or self-care (01) ==
LOC: HO.HHCX 11:04
PROVIDERS: Visit Provider Internal Medicine
DX: R05.9 Cough, unspecified (principal)
CPT/HCPCS: 71046

== ENCOUNTER 2024-09-16 06:33 | Outpatient (REF) | payer MEDICAID, SELFPAY ==
[2024-09-16 07:32] LABS: Hematocrit 38.4 % (37.0-47.0); Hemoglobin 13.9 g/dl (12.0-16.0); Mean Corpuscular HGB Conc 36.2 g/dl (31.0-35.0); Mean Corpuscular Hemoglobin 31.6 pg (27.0-33.0); Mean Corpuscular Volume 87.3 fL (80.0-98.0); Mean Platelet Volume 9.5 fL (9.4-12.3); Platelet Count 444 X10*3/uL (160-400); Red Cell Distribution Width 12.4 % (11.0-16.0); White Blood Count 11.7 X10*3/uL (4.8-10.8)
[2024-09-16 07:45] LABS: Estimated Average Glucose 146 mg/dL; Hemoglobin A1C 171.7977 umol/L; Hemoglobin A1c % 6.7 % (<6.0)
[2024-09-16 07:59] LABS: Creatinine Urine 199.57 mg/dL
[2024-09-16 08:08] LABS: Alanine Aminotransferase 45 U/L (0-31); Albumin Level 4.2 g/dL (3.5-5.0); Alkaline Phosphatase 115 U/L (39-117); Anion Gap 11 (12-20); Aspartate Amino Transferase 16 U/L (5-31); Bilirubin Direct 0.1 mg/dL (0.0-0.5); Bilirubin Total 0.3 mg/dL (0.0-1.0); Blood Urea Nitrogen 13 mg/dL (9-16); Calcium 10.4 mg/dL (8.4-10.2); Carbon Dioxide 28 mmol/L (22-29); Chloride 104 mmol/L (96-108); Cholesterol 184 mg/dL (<200); Estimated Glomerular Filt Rate > 60; Glucose Random 127 mg/dL (60-115); HDL Cholesterol 36 mg/dL (>40); LDL Cholesterol Calculated 69 mg/dL (<100); Potassium 3.9 mmol/L (3.3-5.1); Sodium 139 mmol/L (135-145); Total Protein 7.5 g/dL (6.5-8.0); Triglycerides 395 mg/dL (<150)
[2024-09-16 08:22] LABS: Free T4 (Free Thyroxine) 1.06 ng/dL (0.71-1.85); Vitamin D 25-OH Total 26.9 ng/mL (>30)
[2024-09-16 08:26] LABS: Thyroid Stimulating Hormone 1.72 uIU/mL (0.32-4.0)
== END 2024-09-16 06:34 | disposition home or self-care (01) ==
LOC: HO.LAB 06:33
PROVIDERS: Family Medicine; PCP Internal Medicine; Visit Provider Internal Medicine
DX: E78.2 Mixed hyperlipidemia (principal); I10 Essential (primary) hypertension; E11.9 Type 2 diabetes mellitus without complications; Z79.4 Long term (current) use of insulin; E11.69 Type 2 diabetes mellitus with other specified complication
CPT/HCPCS: 36415; 80053; 80061; 82043; 82248; 82306; 82570; 83036; 84439; 84443; 85027

== ENCOUNTER → 2024-11-07 08:34 | Outpatient (BNV) | payer MEDICAID, SELFPAY | PROVIDERS: PCP Internal Medicine; Visit Provider Radiology Diagnostic Radiology | DX: M51.27 Other intervertebral disc displacement, lumbosacral region (principal) | CPT/HCPCS: 72148 ==

== ENCOUNTER 2024-11-07 08:38 | Outpatient (REF) | payer MEDICAID, SELFPAY ==
--- NOTE | ~2024-11-07 | MR_ITS ---
EXAMINATION: MR LUMBAR SPINE WITHOUT CONTRAST CLINICAL INFORMATION: Severe low back pain. Radiculopathy according to electro myogram. COMPARISON: MRI dated August 15, 2007. Correlated to x-ray dated March 16, 2024 demonstrated postsurgical changes at L4-5 and mild spondylosis.. TECHNIQUE: MRI of the lumbar spine was obtained using routine sequences without contrast. FINDINGS: Submitted for interpretation on November 09, 2024. Last rib-bearing vertebra labeled T12. Paramagnetic field distortion, minimal secondary to intervertebral disc spacer, L4-5. No bone marrow STIR signal abnormality. Bone marrow inhomogeneity involving axial skeleton and more conspicuous in the included bony pelvis. Modic type II and III endplate changes, L4-5. Multilevel disc desiccation and marginal osteophyte formation more conspicuous at L1-2. Focal hyperintense T2 signal in the posterior intervertebral disc L5-S1 likely focal annular fissure. There is a subtle grade 1 anterolisthesis L2-3. Conus medullaris ends at superior endplate of L1 with normal signal. There is a 1 mm cylindrical shaped intradural extramedullary intrinsic hyperintense T1 signal in the ventral aspect of the conus medullaris/filum terminalis, T12-L1 to L2-3. T12-L1: No disc herniation. No neuroforamina stenosis. L1-2: Broad-based disc bulging. Facet joint hypertrophy. No compression upon neural elements. L2-3: Broad-based disc bulging. Facet joint and ligamentum flavum hypertrophy. No compression upon neural elements. L3-4: Broad-based disc bulging. Facet joint and ligamentum flavum hypertrophy. No compression upon neural elements. L4-5: Postsurgical changes. Facet joint hypertrophy as well as ligamentum flavum. Reduced AP diameter of the thecal sac and the neural foramina. L5-S1: Central right subarticular disc herniation abutting the right S1 nerve root on its lateral recess. Bilateral facet joint hypertrophy. Bilateral neuroforamina narrowing encroaching the exiting nerve roots. No prevertebral compartment hematoma, mass or fluid collection. Degenerative changes in the sacroiliac joints. MR/MR lumbar spine wo con IMPRESSION: Central and right subarticular disc herniation L5-S1 likely encroaching right S1 nerve root. Consider calcium metabolic disorder/osteopenia versus osteoporosis Electronically signed by: Kwadwo Salcedo MD 11/09/2024 09:41 AM EST RP
== END 2024-11-07 08:39 | disposition home or self-care (01) ==
LOC: HO.MRI 08:38
PROVIDERS: PCP Internal Medicine; Visit Provider Internal Medicine
DX: M54.40 Lumbago with sciatica, unspecified side (principal); G89.29 Other chronic pain
CPT/HCPCS: 72148

== ENCOUNTER 2024-11-18 11:37 | Outpatient (REF) | payer MEDICAID, SELFPAY | END 2024-11-18 11:38 | disposition home or self-care (01) | LOC: HO.MAMMO 11:37 | PROVIDERS: PCP Internal Medicine; Visit Provider Internal Medicine | DX: Z12.31 Encounter for screening mammogram for malignant neoplasm of breast (principal) | CPT/HCPCS: 77063; 77067 ==

== ENCOUNTER → 2024-11-18 11:45 | Outpatient (BNV) | payer MEDICAID, SELFPAY | PROVIDERS: PCP Internal Medicine; Visit Provider Internal Medicine | DX: Z12.31 Encounter for screening mammogram for malignant neoplasm of breast (principal) | CPT/HCPCS: 77063; 77067 ==

== ENCOUNTER 2024-11-19 10:30 | Outpatient (AMB) | payer MEDICAID, SELFPAY ==
--- NOTE | 2024-11-19 10:59 | HO.SPINEOV ---
Intake Visit Reasons: LBP Intake Note: Ms. Asif is here c/o low back pain radiating into left buttock into left leg. MRI done @ [facility]. Shipwright Supervisor Required: No Allergies ENVIRONMENTAL Allergy (Mild, Uncoded 06/23/24 08:22) Dry Eye Assessment & Plan Assessment & Plan (1) Failed back syndrome: Code(s): M96.1 - Postlaminectomy syndrome, not elsewhere classified Category: Medical Plan Dear Dr Penny, I saw mRs Asif back in the office. I saw her previously last year for similar problem with pain going down her left leg. She has had this pain dating all the way back to her original surgery on the L4-5 level. Her follow-up MRI does not show any evidence of nerve compression. She has postsurgical changes at L4-5 with an anterior lumbar interbody fusion and on the CT scan done last year this shows that the area is adequately fused. Therefore she is falling into the category of the failed back syndrome where unfortunately 5-10% of patients do not get better despite adequate decompression of the nerves. She has a referral to the [facility] and I think this is a very reasonable place to send her, maybe they can consider her for spinal cord stimulator which is known to help improve chronic nerve pain that does not respond to surgery. Total amount of time spent in this visit was 20 minutes in discussion of symptoms, lumbar imaging results and subsequent plan of care Sharad Díaz MD,PhD [facility] Coding Level of Care Code Est Pt Level 3 (83129) Diagnoses Failed back syndrome M96.1
--- OUTSIDE RECORDS SUMMARY | 2024-11-19 11:47 | XMS_ITS | Encounter Summary ---
Author Organization [employer] Address [address] [place] [address] Care Team Providers Care Pressing Department Supervisor Name Role Phone Wojciech Li MD Primary Care Provide r Encounter Details Date Type Department Care Team ([facility] st Contact Info) Description 10/26/2024 Telephone [facility] MEDICINE [address] [place], [place] [phone] Wojciech Li MD [address] [place] [address] Social History Tobacco Use Types Packs/Day Years Used Date Smoking Tobacco: Every Day Cigarettes Passive Smoke Exposure: Current Smokeless Tobacco: Never Alcohol Use Standard Drinks/Week Comments Not Currently 0 (1 standard drink = 0.6 oz pur e alcohol) Depression Answer Date Recorded Patient Health Questionnaire-9 Score 9 09/14/2024 Patient Health Questionnaire-9 Score 9 09/14/2024 Last PHQ-9: Questionnaire Data Not on file 1 11/14/2023 Housing Stability Answer Date Recorded What is your housing situation today? I do not have housing (Staying with others, in a hotel, in a prison, living outside on the street, on a beach, in a car, or in a park 09/14/[address] you li ve. Do you have problems with any of the following? None of the above 09/14/2024 Food Insecurity Answer Date Recorded Within the past 12 months, y ou worried that your food would run out before you got money to buy more: Never True 09/14/2024 Within the past 12 months,th e food you bought just didn't last and you didn't have enough money to get more: Never True Transportation Answer Date Recorded In the past 12 months, has l ack of transportation kept you from medical appts, meetings, work or from getting things needed for daily living? No 09/14/2024 Utilities Answer Date Recorded In the past 12 months, has t he electric, gas, oil or water company threatened to shut off services in your home? No 09/14/2024 Depression Answer Date Recorded Patient Health Questionnaire-2 Score 2 09/14/2024 Internet Access Answer Date Recorded Internet Access Q1 I am not sure 09/14/2024 Internet Access Q2 Not on file 09/14/2024 Comments No Sex and Gender Information Value Date Recorded Sex Assigned at Female 08/26/2022 10:16 AM EDT Legal Sex Female 10:16 AM EDT Gender Identity Female 08/26/2022 10:16 AM EDT Sexual Orientation Straight 08/26/2022 10 :16 AM EDT documented as of this encounter Plan of Treatment Upcoming Encounters Date Type Department Care Team (Late st Contact Info) Description 12/21/2024 11:00 AM EST Office Visit [facility] MEDICINE [address] [place] [phone] 01/06/2025 9:00 AM EDT Telemedicine [facility] MEDICINE [address] [place] [phone] documented as of this encounter Visit Diagnoses Not on filedocumented in this encounter Additional Health Concerns Assessment Noted Time PHQ-9 Depression Total Score: 9 09/14/20 24 1:06 PM EST documented as of this encounter Care Teams Pressing Department Supervisor Relationship Specialty Start Date End Date Wojciech Li MD [address] [place] [id number] PCP - General Internal Medicine 04/12/24 documented as of this encounter
--- OUTSIDE RECORDS SUMMARY | 2024-11-19 11:47 | XMS_ITS | Encounter Summary ---
Author Organization [employer] Address [address] [facility] 7t [place] [address] Care Team Providers Care Coupon Collection Clerk Name Role Phone Wojciech Li MD Primary Care Provide r Wojciech Li MD Primary Care Provide r Wojciech Li MD Primary Care Provide r Reason for Visit * Reason Comments Med Refill Encounter Details Date Type Department Care Team (Late st Contact Info) Description 07/15/2023 Refill [facility] CHC MED & PEDS [address] [place], [place] [phone] Wojciech Li MD [address] [place], [place] [phone] Type 2 diabetes mellitus without complication, unspecified whether care home insulin use ([facility]) Social History Tobacco Use Types Packs/Day Years Used Date Smoking Tobacco: Every Day Cigarettes Passive Smoke Exposure: Current Smokeless Tobacco: Never Alcohol Use Standard Drinks/Week Comments Not Currently 0 (1 standard drink = 0.6 oz pur e alcohol) Depression Answer Date Recorded Patient Health Questionnaire-9 Score 0 06/10/2023 Depression Answer Date Recorded Patient Health Questionnaire-2 Score 0 06/10/2023 Comments Unknown Sex and Gender Information Value Date Recorded Sex Assigned at Female 08/26/2022 10:16 AM EDT Legal Sex Female 10:16 AM EDT Gender Identity Female 08/26/2022 10:16 AM EDT Sexual Orientation Straight 08/26/2022 10 :16 AM EDT documented as of this encounter Plan of Treatment Upcoming Encounters Date Type Department Care Team (Late st Contact Info) Description 12/21/2024 11:00 AM EST Office Visit [facility] [place] [phone] 01/06/2025 9:00 AM EDT Telemedicine [facility] [place] [phone] documented as of this encounter Visit Diagnoses Diagnosis Type 2 diabetes mellitus without complication, unspecified whether extermination supervisor insulin use ([facility]) documented in this encounter Additional Health Concerns Assessment Noted Time PHQ-9 Depression Total Score: 0 06/10/20 10:47 AM EDT documented as of this encounter Care Teams Coupon Collection Clerk Relationship Specialty Start Date End Date Wojciech Li MD [facility] [place] [address] PCP - General Internal Medicine 06/01/14 03/04/24 Wojciech Li MD [address] [place] [phone] PCP - General Internal Medicine 03/12/24 03/12/24 Wojciech Li MD [address] [place] [phone] PCP - General Internal Medicine 04/12/24 documented as of this encounter
--- OUTSIDE RECORDS SUMMARY | 2024-11-19 11:47 | XMS_ITS | Encounter Summary ---
Author Organization [employer] Address [address] [facility] [address] 7[address] [place] [address] Care Team Providers Care Environmental Planning Engineer Name Role Phone Wojciech Li MD Primary Care Provide r Reason for Visit * Reason Onset Date Comments Med Refill 11/04/2024 Encounter Details Date Type Department Care Team ([facility] st Contact Info) Description 11/04/2024 Refill [facility] CHC MED & PEDS [address] [place] [address] Yusra Ledezma, RN [address] [place] [address] Chronic midline low back pain without sciatica Social History Tobacco Use Types Packs/Day Years [...] with others, in a hotel, in a chcf, living outside on the street, on a [...] Description 12/21/2024 11:00 AM EST Office Visit [facility] MEDICINE [address] [place] [phone] 01/06/2025 9:00 AM EDT Telemedicine [facility] MEDICINE [address] [place] [phone] documented as of this encounter Visit Diagnoses Diagnosis Chronic midline low back pain without sciatica documented in this encounter Additional Health Concerns Assessment Noted Time PHQ-9 Depression Total Score: 9 09/14/20 24 1:06 PM EST documented as of this encounter Care Teams Environmental Planning Engineer Relationship Specialty Start Date End Date Wojciech Li MD [address] [place] [phone] PCP - General Internal Medicine 04/12/24 documented as of this encounter
--- OUTSIDE RECORDS SUMMARY | 2024-11-19 11:47 | XMS_ITS | Encounter Summary ---
Author Organization [employer] Address [address] [facility] [address]t [place] [address] Care Team Providers Care Work From Home Name Role Phone Wojciech Li MD Primary Care Provide r Wojciech Li MD Primary Care Provide r Wojciech Li MD Primary Care Provide r Reason for Visit * Reason Onset Date Comments Durable Medical Equipment 01/10/2023 Encounter Details Date Type Department Care Team (Late st Contact Info) Description 01/10/[address] [facility] MEDICINE [address] [place], [place] [phone] Wojciech Li MD [address] [place], [place] [phone] Durable Medical Equipment Social History Tobacco Use Types Packs/Day Years Used Date Smoking Tobacco: Every Day Cigarettes Passive Smoke Exposure: Current Smokeless Tobacco: Never Comments Unknown Sex and Gender Information Value Date Recorded Sex Assigned at Female 08/26/2022 10:16 AM EDT Legal Sex Female 10:16 AM EDT Gender Identity Female 08/26/2022 10:16 AM EDT Sexual Orientation Straight 08/26/2022 10 :16 AM EDT COVID-19 Exposure Response Date Recorded In the last 10 days, have yo u been in contact with someone who was confirmed or suspected to have Coronavirus/COVID-19? No / Unsure 12/25/2022 10:42 AM EST documented as of this encounter Miscellaneous Notes * Telephone Encounter - Sergio Romero 01/10/2023 9:17 AM EDT Tc from Adriana with [facility] requesting a Walker with the seat, for pt regarding pt back injury, surgery back in February of spine. Please contact Adriana [phone] documented in this encounter Plan of Treatment Upcoming Encounters Date Type Department Care Team (Late st Contact Info) Description 12/21/2024 11:00 AM EST Office Visit [address] [phone] 01/06/2025 9:00 AM EDT Telemedicine [address] [phone] documented as of this encounter Visit Diagnoses Not on filedocumented in this encounter Care Teams Work From Home Relationship Specialty Start Date End Date Woj[place] [address] PCP - General Internal Medicine 06/01/14 03/04/24 Wojciech Li MD [address] [place] [phone] PCP - General Internal Medicine 03/12/24 03/12/24 Wojciech Li MD [address] [place] [phone] PCP - General Internal Medicine 04/12/24 documented as of this encounter
--- OUTSIDE RECORDS SUMMARY | 2024-11-19 11:47 | XMS_ITS | Encounter Summary ---
Author Organization [employer] Address [address] [facility] 7[address] [place] [address] Care Team Providers Care [employer] Name Role Phone Wojciech Li MD Primary Care Provide r Reason for Visit * Reason Onset Date Comments Med Refill 09/20/2024 Encounter Details Date Type Department Care Team ([facility] st Contact Info) Description 09/20/2024 Telephone [facility] MEDICINE [address] [place] [address] Wojciech Li MD [address] [place] [address] Med Refill Social History Tobacco Use Types Packs/Day Years [...] with others, in a hotel, in a retirement, living outside on the street, on a [...] AM EDT documented as of this encounter Miscellaneous Notes * Telephone Encounter - Shay Edwards - 09/20/2024 9:27 AM EST Tc from pt calling in regards to oxyCODONE (Roxicodone) 5 MG immediate release tablet. Pt does not want to take medication due to reactions she's been having. Pt is requesting to change to Hydrocodone 5-325. Please contact pt at [phone]. (Thai Speaker) documented in this encounter Plan of Treatment Upcoming Encounters Date Type Department Care Team ([facility] st Contact Info) Description 12/21/2024 11:00 AM EST Office Visit [facility] MEDICINE [address] [place] [phone] 01/06/2025 9:00 AM EDT Telemedicine [facility] MEDICINE [address] [place] [address] documented as of this encounter Visit Diagnoses Not on filedocumented in this encounter Additional Health Concerns Assessment Noted Time PHQ-9 Depression Total Score: 9 09/14/20 24 1:06 PM EST documented as of this encounter Care Teams [employer] Relationship Specialty Start Date End Date Wojciech Li MD [address] [place] [address] PCP - General Internal Medicine 04/12/24 documented as of this encounter
--- OUTSIDE RECORDS SUMMARY | 2024-11-19 11:47 | XMS_ITS | Encounter Summary ---
Author Organization [employer] Address [address] [facility] 7t [place] [address] Care Team Providers Care Director Index Name Role Phone Wojciech Li MD Primary Care Provide r Reason for Visit * Consultation (Urgent) - Authorized Specialty Diagnoses / Procedures Referred By Contac t Referred To Contact Pharmacy Diagnoses Essential hypertension Mixed hyperlipidemia Bipolar affective disorder, currently depressed, moderate (CMS/HCC) Type 2 diabetes mellitus without complication, unspecified whether terminal gauger supervisor insulin use (CMS/HCC) Wojciech Li MD [address] [place] [address] Phone: tel: fax: Referral ID Status Reason Start Date Expiration Date Visits Requested Visits Authorized [id number] Authorized Continuity of Care 09/14/2024 09/14/2025 6 6 Encounter Details Date Type Department Care Team (Late st Contact Info) Description 11/04/2024 9:00 AM EST Telemedicine [facility] [address] [place] [address] Jackson Anne, PharmD [address] [place] [address] Type 2 diabetes mellitus without complication, unspecified whether prison insulin use (CMS/HCC) (Primary Dx); Essential hypertension; Mixed hyperlipidemia; Bipolar affective disorder, currently depressed, moderate (CMS/HCC); Chronic obstructive pulmonary disease, unspecified COPD type (CMS/HCC); Moderate persistent asthma without complication Social History Tobacco Use Types Packs/Day Years [...] with others, in a hotel, in a halfway, living outside on the street, on a [...] AM EDT documented as of this encounter Progress Notes * Jackson Anne PharmD - 11/04/2024 9:00 AM EST Pharmacy Consult Visit Type: MTM Visit Pharmacist: Jackson Anne PharmD Referral Diagnosis: HTN, HLD, bipolar affective disorder, T2DM Referral Expiration: 09/14/25 Referring Provider: Dr. Penny Pharmacy Recommendations for Provider: Please consider sending a prescription for a home BP monitor. Please consider referral to eye care, as patient has PMH of T2DM and has not had an eye exam in thepast 12 months. Patient endorsed experiencing episodes of headache and blurry vision, and per patient reported SMBG, their BG has been as high as 398 mg/dL. Note - full review of SMBG unable to be conducted as patient did not have their meter at the time of the visit. Patient also has PMH of HTN, however denies SMBP. Per ACC/AHA 2024 guidelines in patients aged 40-75 yr with diabetes, initiation of a moderate intensity statin is recommended for ASCVD primary prevention. Please consider initiation of rosuvastatin 5 mg once daily Please consider ordering FLP and LFTs 4-12 weeks following potential initiation, in order to assesssafety and efficacy of statin therapy. Per ACC/AHA 2018 guidelines, aspirin is recommended for primary prevention in patients 40-75 years old who are at an increased cardiovascular risk (ASCVD risk >20%, HTN, cigarette smoking, T2DM). Please consider initiation of aspirin 81 mg once daily. Patient-reported symptoms and frequency of rescue inhaler use suggests that asthma/COPD is currently uncontrolled. Per GOLD guidelines, patient is in group B (0-1 moderate exacerbation, increased frequency of symptoms), in which therapy with LAMA+LABA is indicated. Patient currently on LAMA with ICS (concomitant asthma). In this case, triple therapy with an ICS+LAMA+LABA inhaler may be indicated.Please consider initiation of Trelegy ellipta 100-62.5-25 mg 1 puff once daily (PA required). Please formally discontinue Arnuity and Spiriva inhalers if initiated. Upon review of patient's medication regimen, concomitant use of trazodone and mirtazapine may increase the risk of QT prolongation. Please consider obtaining EKG to assess safety of medication combination. Since patient receives monthly medboxes, please contact medbox pharmacist with any medication changes (initiations, discontinuation, dose adjustments) Background/ Visit Intake Brandie Asif is a 54 y.o. patient here for a follow-up visit. Visit completed over the phone. Allergies: has No Known Allergies. Preferred Pharmacy: [facility] - [place], [facility] [address] [facility] [address] [facility] [id number] Medbox: Yes, last medbox on 11/02/24 . Assessment & Plan Adherence: History: Medication Reconciliation: OTC medication, vitamin, supplement use: denies Adherence: Read/Write: Yes, in Maltese Medication Organization: Uses medboxes from [facility] pharmacy Patient reports satisfaction with Medbox program. Patient denies experiencing related ADEs or removing medications from the Medbox. Missed doses: Denies missed doses Goals of therapy: Improve adherence & minimize missed doses (<2 missed doses/week) Recommendations/Monitoring: Since patient receives monthly medboxes, please contact medbox pharmacist with any medication changes (initiations, discontinuation, dose adjustments) Diabetes Pharmacologic Therapy: Trulicity 1.5 mg once weekly Glimepiride 1 mg once daily Lantus 20 units once daily History: Lantus recently re-started at 10 units once daily as of 03/24/24 (previous fill was 07/2023) Patient now instructed to take Lantus 20 units once daily as of PCP note from 09/14/24 Patient stated they actively use 20 units of Lantus once daily SMBG: Patient reports testing 1-2 times per day. No SMBG: Patient did not have glucometer or log readily available at time of the visit. From memory, patient reports that their readings are around 124, 130, 150 before breakfast. Patient also endorsed that they sometimes have high numbers , where the highest one that patient is able to recall is 398 Patient denies experiencing symptoms of hypoglycemia. Patient reports occasional symptoms of hyperglycemia, such as headache and blurry vision. However, patient denies experiencing any nausea, vomiting, fatigue. Patient denies experiencing these symptoms at the time of the visit. Patient endorsed that their blood pressure is also high , which may also contribute to these symptoms. Patient endorsed that their stress (and subsequent cigarette smoking) may also attribute to these episodes. Lab monitoring: Lab Results Component Value Date K 3.9 09/16/2024 NA 139 09/16/2024 MICROALBCREU 38.0 (H) 09/16/2024 CREATININE 0.75 09/16/2024 EGFR >60 09/16/2024 HGBA1C 6.7 (H) 09/16/2024 HGBA1C 7.0 (A) 09/14/2024 HGBA1C 9.4 (A) 03/24/2024 Additional recommendations per ADA: On ACEI/ARB: Yes, lisinopril 20 mg On Aspirin: No On Statin: No Eye Exam in the past 12 months: No, last visit in 2018. Goals of therapy: Per the ADA Standards of Medical Care in Diabetes - 2023 Achieve A1c of <7% while also minimizing episodes of hypoBG (<70 mg/dL) Plan: A1c is at goal. Continue current regimen as directed. Continue SMBG and log results. Next updated A1c is due in November. If updated A1c returns above goal >7%, please consider doseincrease of Trulicity from 1.5 mg to 3 mg once weekly for additional glycemic control. Please consider referral to eye care, as patient has PMH of T2DM and has not had an eye exam in thepast 12 months. Patient endorsed experiencing episodes of headache and blurry vision, and per patient reported SMBG, their BG has been as high as 398 mg/dL. Note - full review of SMBG unable to be conducted as patient did not have their meter at the time of the visit. Patient also has PMH of HTN, however denies SMBP. Education: Discussed role of A1c monitoring, A1c and SMBG goals Reviewed risks of macrovascular and microvascular complications of uncontrolled T2DM Reviewed signs, symptoms and treatments of hypoglycemia to which patient confirmed understanding. Hypertension: Pharmacologic Therapy: Lisinopril 20 mg once daily Propranolol 40 mg twice daily Indirect - prescribed for migraine prevention History: Patient denies SMBP, as they do not own a BP monitor. At last MTM visit (09/16/24): BP was not at goal likely in the setting of nonadherence, as patient reported missing 4-5 doses/week. Today, patient has been using medbox program for ~6 weeks, and denies missed dosing. However, further control of HTN unable to be assessed at this time as patient denies SMBP. BP at last office visit with PCP (on 10/05/24) was after about 2.5 weeks of Medbox use, in which BPreturned above goal. Patient reports experiencing symptoms of headache and blurry vision (see Diabetes section above for plan) Pertinent negatives include chest pain. Recent Blood Pressure values: BP Readings from Last 4 Encounters: 10/05/24 (!) 149/89 09/16/24 (!) 146/78 09/14/24 (!) 148/88 09/09/24 135/79 Pulse Readings from Last 4 Encounters: 10/05/24 99 09/16/24 81 09/14/24 90 09/09/24 79 Lab monitoring Lab Results Component Value Date NA 139 09/16/2024 K 3.9 09/16/2024 CREATININE 0.75 09/16/2024 EGFR >60 09/16/2024 Goals of Therapy per JNC 8: Achieve & maintain BP <140/90mmHg Plan: Please consider sending a prescription for a home BP monitor. Upon further review of SMBP, if above goal at >140/90 mmHg, please consider dose increase of lisinopril from 20 mg to 30 mg once daily for additional blood pressure lowering effect Following potential dose increase, please consider ordering updated BMP in 2 weeks in order to assess safety of therapy. Education: Counseling provided to SMBP & log results for review in follow up. Reviewed BP goals, patient instructed to call office if extremes of BP are noted prior to follow up. ASCVD Risk Pharmacologic Therapy: Fenofibrate 134 mg once daily History: Patient recently re-started on fenofibrate as of 05/13/24 Prior to most recent fill in April 2024, fenofibrate was last picked up in July 2023. PCP note lists that patient is taking aspirin 81 mg once daily, however patient denies ever taking this medication. Lab monitoring: Lab Results Component Value Date CHOL 184 09/16/2024 LDLCHOLCAL 69 09/16/2024 HDL 36 (L) 09/16/2024 TRIG 395 (H) 09/16/2024 AST 16 09/16/2024 ALT 45 (H) 09/16/2024 The 10-year ASCVD risk score (Serena TOMLINSON, et al., 2019) is: 20.6% Values used to calculate the score: Age: 54 years Sex: Female Is Non- : No Diabetic: Yes Tobacco smoker: Yes Systolic Blood Pressure: 149 mmHg Is BP treated: Yes HDL Cholesterol: 36 mg/dL Total Cholesterol: 184 mg/dL Goals of Therapy: ACC/AHA 2018 Cholesterol Guidelines: Ensure evidence based and safe use of medications for primary prevention of ASCVD. Plan: Per ACC/AHA 2018 guidelines, aspirin is recommended for primary prevention in patients 40-75 years old who are at an increased cardiovascular risk (ASCVD risk >20%, HTN, cigarette smoking, T2DM). Please consider initiation of aspirin 81 mg once daily. Per ACC/AHA 4 guidelines in patients aged 40-75 yr with diabetes, initiation of a moderate intensity statin is recommended for ASCVD primary prevention. Please consider initiation of rosuvastatin 5 mg once daily Please consider ordering FLP and LFTs 4-12 weeks following potential initiation, in order to assesssafety and efficacy of statin therapy. Asthma/ COPD Pharmacologic Therapy: Arnuity ellipta (ICS) 200 mcg one puff once daily Spiriva handihaler (LAMA) 1 capsule inhalation once daily Montelukast 10 mg once daily Albuterol HFA 2 puffs every 4 hours as needed Albuterol nebs 1 amp every 4 hours as needed History: Patient confirms taking maintenance inhalers (Arnuity ellipta and Spiriva Handihaler) every day. Patient reports experiencing symptoms of SOB/wheezing 2-3 days per week Patient reports using albuterol HFA inhaler during these episodes with good affect. ACT score was 15 today. Of note, patient reports waking up during the night 2-3 times per week due to SOB. Patient endorsedthat they require needing multiple pillows to sit themselves upright to be able to go back to sleep. Patient endorsed that they sometimes experience SOB, when doing daily errands around the house. Patient reports that they actively smoke cigarettes. Patient reports smoking 4-5 cigarettes per day, however this amount sometimes increases when they feel more anxious or stressed Patient denied interest in smoking cessation at this time. Identified cold weather and walking as a trigger. Goals of Therapy: Per NHLBI Asthma Guidelnes and GOLD guidelines: Optimize therapy to achieve symptom control (defined as rescue inhaler use < 2x per week). Prevent hospitalization secondary to exacerbation Plan: Patient-reported symptoms and frequency of rescue inhaler use suggests that asthma/COPD is currently uncontrolled. Per GOLD guidelines, patient is in group B (0-1 moderate exacerbation, increased frequency of symptoms), in which therapy with LAMA+LABA is indicated. Patient currently on LAMA with ICS (concomitant asthma). In this case, triple therapy with an ICS+LAMA+LABA inhaler may be indicated.Please consider initiation of Trelegy ellipta 100-62.5-25 mg 1 puff once daily (PA required). Please formally discontinue Arnuity and Spiriva inhalers if initiated. Discussed available resources to help with smoking cessation including medications & pharmacist-led clinic. Patient denies interest at this time. Encouraged patient to reach out to PCP or pharmacy team should they become interested at a later date, to which they confirmed understanding. Education: Reviewed the difference between maintenance and rescue medications. Counseled patient on the importance of using maintenance inhaler as prescribed to improve symptom control, reduce the risk of exacerbation, & minimize the need for MARCIE. Patient confirmed understanding. Bipolar affective disorder Pharmacologic Therapy: Bupropion XL 150 mg once daily Bupropion XL 300 mg once daily Duloxetine 60 mg once daily Mirtazapine 45 mg once daily Prazosin 1 mg once daily Trazodone 100 mg once daily History: Baseline EKG not available. Follows with [facility] Alli Goyal ([facility]) Date of last visit unknown Patient reports they do not currently have an appointment scheduled with this provider at this time. Patient reported having the office's number and plans to call to make an appointment soon. Goals of Therapy: Reduce frequency of mood related symptoms and improve emotional state. Plan: Continue current regimen as directed. Patient to call provider's office to make follow up appointment. Patient agreeable to plan. Upon review of patient's medication regimen, concomitant use of trazodone and mirtazapine may increase the risk of QT prolongation. Please consider obtaining EKG to assess safety of medication combination. Immunizations History: Immunization History Administered Date(s) Administered Influenza injectable quadrivalent IIV4 with preservative 11/25/2017 Influenza injectable quadrivalent preservative free 11/30/2015, 09/18/2021, 07/25/2022 Influenza, IIV3, injectable 07/15/2013, 10/06/2014, 09/28/2024 Influenza, Split (incl. purified surface antigen) 08/14/2012 Moderna Covid-19 Vaccine 12+ 01/08/2021, 02/05/2021, 09/19/2021 Moderna Covid-19 Vaccine 6+ Bivalent 12/31/2022 Pneumococcal Conjugate PCV 20 09/28/2024 Pneumococcal Polysaccharide PPSV23 07/15/2013 Tdap 11/30/2015 Goals of therapy: Ensure patient is up to date per the CDC Adult Immunization Schedule. Assessment/Plan: Influenza [id number] vaccine: Up-to-date . Next dose due annually. COVID-19 [id number] vaccine: Due . Next dose due annually. Hepatitis B series (Age 19-59): Due . Pneumococcal vaccines (chronic lung disease (asthma or COPD)): Up-to-date Shingrix series (age > 50 ): Due . Td/TDaP (within the past 10 years): Up-to-date . Next dose due every 10 years. Plan: Patient reports interest in receiving Hepatitis B and Shingrix vaccines at this time. Vaccine appointment scheduled at [facility] pharmacy for 11/16/24 Education: Indication of all recommended/administered vaccine Patient Action Plan Reviewed today with plan to revisit at follow up in 2 months for SMBP and SMBG review: 01/06/25 Continue to adhere to medication with assistance of medbox program Monitor blood sugar and blood pressure once daily and log results Attend vaccine appointment in the pharmacy on 11/16/24 documented in this encounter Plan of Treatment Upcoming Encounters Date Type Department Care Team (Late st Contact Info) Description 12/21/2024 11:00 AM EST Office Visit [address] [address] 01/06/2025 9:00 AM EDT Telemedicine [facility] MED[facility]INE [address] [place] [address] documented as of this encounter Visit Diagnoses Diagnosis Type 2 diabetes mellitus without complication, unspecified whether prison insulin use ([facility])- Primary Essential hypertension Unspecified essential hypertension Mixed hyperlipidemia Bipolar affective disorder, currently depressed, moderate ([facility]) Bipolar I disorder, most recent episode (or current) depressed, moderate Chronic obstructive pulmonary disease, unspecified COPD type ([facility]) Moderate persistent asthma without complication documented in this encounter Additional Health Concerns Assessment Noted Time PHQ-9 Depression Total Score: 9 09/14/20 24 1:06 PM EST documented as of this encounter Care Teams Director Index Relationship Specialty Start Date End Date Wojciech Li MD [address] [place] [address] PCP - General Internal Medicine 04/12/24 documented as of this encounter
--- OUTSIDE RECORDS SUMMARY | 2024-11-19 11:47 | XMS_ITS | Encounter Summary ---
Author Organization [employer] Address [address] [facility] 7t [place] [address] Care Team Providers Care National Sales Representative Name Role Phone Wojciech Li MD Primary Care Provide r Reason for Visit * Reason Comments Pre-visit Planning SDOH screening was c ompleted on 09/14/2024 Encounter Details Date Type Department Care Team ([facility] st Contact Info) Description 11/04/2024 Patient Outreach [facility] [address] [place] [address] Wojciech Li MD [address] [place] [address] Pre-visit Planning (SDOH screening was completed on 09/14/2024) Social History Tobacco Use Types Packs/Day Years [...] with others, in a hotel, in a senior care, living outside on the street, on a [...] as of this encounter Progress Notes * Callie Harrison - 11/04/2024 12:48 PM EST KARTHIKEYAN Paz placed successful outbound call to patient for pre-visit planning. Patient name and confirmed. Patient confirms appt date and time, and has transportation arrangements. Biggest concern for appointment at this time is no concerns. Patient advised to bring to appointment a photo id and insurance card. Appropriate screenings completed in anticipation of appointment. documented in this encounter Plan of Treatment Upcoming Encounters Date Type Department Care Team (Late st Contact Info) Description 12/21/2024 11:00 AM EST Office Visit [facility] [address] [place] [id number] 01/06/2025 9:00 AM EDT Telemedicine [facility] [address] [place] [phone] documented as of this encounter Visit Diagnoses Not on filedocumented in this encounter Additional Health Concerns Assessment Noted Time PHQ-9 Depression Total Score: 9 09/14/20 24 1:06 PM EST documented as of this encounter Care Teams National Sales Representative Relationship Specialty Start Date End Date Wojciech Li MD [address] [place] [address] PCP - General Internal Medicine 04/12/24 documented as of this encounter
--- OUTSIDE RECORDS SUMMARY | 2024-11-19 11:47 | XMS_ITS | Encounter Summary ---
Author Organization [employer] Address [address] [facility] [address] [place] [address] Care Team Providers Care Warehouse Distribution Manager Name Role Phone Wojciech Li MD Primary Care Provide r Wojciech Li MD Primary Care Provide r Wojciech Li MD Primary Care Provide r Encounter Details Date Type Department Care Team (Late st Contact Info) Description 01/06/2023 Orders Only [facility] MED & PEDS [address] [place] [address] Dayanara Jiménez LPN Social History Tobacco Use Types Packs/Day Years [...] AM EST documented as of this encounter Plan of Treatment Upcoming Encounters Date Type Department Care Team (Late st Contact Info) Description 12/21/2024 11:00 AM EST Office Visit [facility] MED[facility]INE [address] [place] [address] 01/06/2025 9:00 AM EDT Telemedicine [facility] [address] [facility] [place] [address] documented as of this encounter Visit Diagnoses Not on filedocumented in this encounter Care Teams Warehouse Distribution Manager Relationship Specialty Start Date End Date Wojciech Li MD [address] [facility] [place] [address] PCP - General Internal Medicine 06/01/14 03/04/24 Wojciech Li MD [address] [place] [address] PCP - General Internal Medicine 03/12/24 03/12/24 Wojciech Li MD [address] [place] [address] PCP - General Internal Medicine 04/12/24 documented as of this encounter
--- OUTSIDE RECORDS SUMMARY | 2024-11-19 11:47 | XMS_ITS | Encounter Summary ---
Author Organization [employer] Address [address] [facility] [address] [place] [address] Care Team Providers Care Pipe Line Gauger Name Role Phone Wojciech Li MD Primary Care Provide r Wojciech Li MD Primary Care Provide r Wojciech Li MD Primary Care Provide r Encounter Details Date Type Department Care Team (Late st Contact Info) Description 12/13/2022 Orders Only [facility] MED & PEDS [address] [place] [address] Dayanara Jiménez LPN Social History Tobacco Use [...] suspected to have Coronavirus/COVID-19? No / Unsure 12/12/2022 4:11 PM EST documented as of this encounter Plan of Treatment Upcoming Encounters Date Type Department Care Team (Late st Contact Info) Description 12/21/2024 11:00 AM EST Office Visit [facility] [address] [place] [address] 01/06/2025 9:00 AM EDT Telemedicine [facility] [address] [facility] [place] [address] documented as of this encounter Visit Diagnoses Not on filedocumented in this encounter Care Teams Pipe Line Gauger Relationship Specialty Start Date End Date Wojciech Li MD [address] [facility] [place] [address] PCP - General Internal Medicine 06/01/14 03/04/24 Wojciech Li MD [address] [place] [address] PCP - General Internal Medicine 03/12/24 03/12/24 Wojciech Li MD [address] [place] [address] PCP - General Internal Medicine 04/12/24 documented as of this encounter
--- OUTSIDE RECORDS SUMMARY | 2024-11-19 11:47 | XMS_ITS | Encounter Summary ---
Author Organization [employer] Address [address] [facility] [address] [place] [address] Care Team Providers Care Mortgage Originator Name Role Phone Wojciech Li MD Primary Care Provide r Wojciech Li MD Primary Care Provide r Wojciech Li MD Primary Care Provide r Reason for Visit * Reason Onset Date Comments Med Refill 04/18/2023 Encounter Details Date Type Department Care Team ([facility] st Contact Info) Description 04/18/2023 Telephone [facility] [address], [place] [phone] Wojciech Li MD [address] [place], [place] [phone] Med Refill Social History Tobacco Use Types Packs/Day Years Used Date Smoking Tobacco: Every Day Cigarettes Passive Smoke Exposure: Current Smokeless Tobacco: Never Alcohol Use Standard Drinks/Week Comments Not Currently 0 (1 standard drink = 0.6 oz pur e alcohol) Comments Unknown Sex and Gender Information Value [...] suspected to have Coronavirus/COVID-19? No / Unsure 03/27/2023 11:05 AM EDT documented as of this encounter Miscellaneous Notes * Telephone Encounter - Martha Arango - 04/18/2023 3:40 PM EDT Tc from patient requesting a med refill on medication oxycodone [address] Penny documented in this encounter Plan of Treatment Upcoming Encounters Date Type Department Care Team (Late st Contact Info) Description 12/21/2024 11:00 AM EST Office Visit [facility] [address] [place] [id number] 01/06/2025 9:00 AM EDT Telemedicine [address] [address] documented as of this encounter Visit Diagnoses Not on filedocumented in this encounter Care Teams Mortgage Originator Relationship Specialty Start Date End Date Wojciech Li MD [address] [place] [id number] PCP - General Internal Medicine 06/01/14 03/04/24 Wojciech Li MD [address] [place] [id number] PCP - General Internal Medicine 03/12/24 03/12/24 Wojciech Li MD [address] [place] [id number] PCP - General Internal Medicine 04/12/24 documented as of this encounter
--- OUTSIDE RECORDS SUMMARY | 2024-11-19 11:47 | XMS_ITS | Encounter Summary ---
Author Organization [employer] Address [address] [facility] [address] [place] [address] Care Team Providers Care Sand Car Worker Name Role Phone Wojciech Li MD Primary Care Provide r Wojciech Li MD Primary Care Provide r Wojciech iL MD Primary Care Provide r Reason for Visit * Reason Comments Med Refill Encounter Details Date Type Department Care Team (Late st Contact Info) Description 01/09/2023 Refill [facility] [address] [place] [address] [facility] [address] [place] [address] Shortness of breath Social History Tobacco Use Types Packs/Day Years [...] Description 12/21/2024 11:00 AM EST Office Visit [facility] [place] [address] 01/06/2025 9:00 AM EDT Telemedicine [facility] [place] [address] documented as of this encounter Visit Diagnoses Diagnosis Shortness of breath documented in this encounter Care Teams Sand Car Worker Relationship Specialty Start Date End Date [place] [address] PCP - General Internal Medicine 06/01/14 03/04/24 [place] [address] PCP - General Internal Medicine 03/12/24 03/12/24 [place] [address] PCP - General Internal Medicine 04/12/24 documented as of this encounter
--- OUTSIDE RECORDS SUMMARY | 2024-11-19 11:47 | XMS_ITS | Encounter Summary ---
Author Organization [employer] Address [address] [facility] [address] [place] [address] Care Team Providers Care Graduating Machine Operator Name Role Phone Wojciech Li MD Primary Care Provide r Encounter Details Date Type Department Care Team (Latest Contact Info) Description 11/04/2024 Travel Social History Tobacco Use Types Packs/Day Years [...] with others, in a hotel, in a custodial, living outside on the street, on a [...] Description 12/21/2024 11:00 AM EST Office Visit [address] [address] 01/06/2025 9:00 AM EDT Telemedicine [address] [address] documented as of this encounter Visit Diagnoses Not on filedocumented in this encounter Additional Health Concerns Assessment Noted Time PHQ-9 Depression Total Score: 9 09/14/20 24 1:06 PM EST documented as of this encounter Care Teams Graduating Machine Operator Relationship Specialty Start Date End Date Wojciech Li MD [address] [place] [id number] PCP - General Internal Medicine 04/12/24 documented as of this encounter
--- OUTSIDE RECORDS SUMMARY | 2024-11-19 11:47 | XMS_ITS | Clinical Summary ---
Author Organization [employer] Address [address] [place] [address] Care Team Providers Care Director Of Integrated Marketing Name Role Phone Wojciech Li MD Primary Care Provide r Allergies No known active allergies Medications Alcohol Swabs (Alcohol Prep) 70 % pads USE FOUR TIMES DAILY 100 each 11 023 Active buPROPion XL (Wellbutrin XL) 300 MG 24 hr tablet Take 300 mg by mouth in the morning. 023 Active DULoxetine (Cymbalta) [address] capsule Take 60 mg by mouth in the morning. Active mirtazapine (Remeron) 45 MG tablet Take 45 mg by mouth at bedtime. 023 Active naloxone (Narcan) 4 mg/0.1 mL nasal spray Administer 0.1 mL into affected nostril(s). Active prazosin (Minipress) 1 MG capsule Take 1 mg by mouth at bedtime. 023 Active glucose blood (FREESTYLE LITE) test stripIndications :Type 2 diabetes mellitus without complication, unspecified whether moth exterminator insulin use ([facility]) Test blood sugar once a day 100 each 023 Active TRUEplus Lancets 33G miscIndications: Type 2 diabetes mellitus without complication, unspecified whether nursing home insulin use ([facility]) TEST BLOOD SUGAR ONCE DAILY 100 each 11 023 Active Diclofenac Sodium 1 % gel Apply 2 g topically if needed in the morning, at noon, in the evening, and at bedtime (pain). 150 g 3 Active montelukast (Singulair) 10 MG tabletIndication s:Seasonal allergies Take 1 tablet (10 mg) by mouth at bedtime. 90 tablet 1 Active albuterol (2.5 MG/3ML) 0.083% nebulizer solutionIndicati ons:Chronic low back pain, unspecified back pain laterality, unspecified whether sciatica present,Chronic obstructive pulmonary disease, unspecified COPD type ([facility]) INHALE 1 AMPULE USING A NEBULIZER EVERY 4 HOURS NEEDED FOR WHEEZING OR SHORTNESS OF BREATH 90 mL 1 024 Active fluticasone (Flonase Allergy Relief) 50 MCG/ACT nasal sprayIndications :Shortness of breath SPRAY 2 SPRAYS INTO EACH NOSTRIL EVERY DAY 48 g 1 024 Active cetirizine (ZyrTEC) 10 MG tabletIndication s:Seasonal allergies TAKE 1 TABLET BY MOUTH EVERY DAY 90 tablet 1 Active lisinopril 20 MG tabletIndication s:Essential hypertension TAKE 1 TABLET BY MOUTH EVERY MORNING 90 tablet 1 024 Active Trulicity 1.5 MG/0.5ML solution auto-injectorInd ications:Type 2 diabetes mellitus without complication, unspecified whether moth exterminator insulin use ([facility]) INJECT ONE PEN (=1.5MG) SUBCUTANEOUSLY ONCE A WEEK DIRECTED 2 mL 2 Active rOPINIRole (Requip) 1 MG tabletIndication s:Restless leg syndrome TAKE 1 TABLET BY MOUTH AT BEDTIME 30 tablet 3 Active ibuprofen 200 MG tabletIndication s:Acute exacerbation of COPD with asthma ([facility]) Take 2 tablets (400 mg) by mouth every 8 (eight) hours if needed for mild pain or moderate pain. 20 tablet Active albuterol 108 (90 Base) MCG/ACT inhalerIndicatio ns:Acute exacerbation of COPD with asthma ([facility]),Chroni c low back pain, unspecified back pain laterality, unspecified whether sciatica present,Chronic obstructive pulmonary disease, unspecified COPD type ([facility]) Inhale 2 puffs every 4 (four) hours if needed for wheezing or shortness of breath. 18 g 1 024 2024 Active famotidine (Pepcid) 20 MG tablet TAKE 1 TABLET BY MOUTH TWICE A DAY 180 tablet Active insulin pen needle (UltiCare Short Pen [place]) 31G X 8 mm miscIndications: Type 2 diabetes mellitus without complication, unspecified whether nursing home insulin use (CMS/HCC) USE DIRECTED AT BEDTIME 100 each 3 Active glimepiride (Amaryl) 1 MG tabletIndication s:Type 2 diabetes mellitus without complication, unspecified whether nursing home insulin use (CMS/HCC) Take 1 tablet (1 mg) by mouth before breakfast. 30 tablet 6 024 2024 Active clotrimazole (Lotrimin) 1 % creamIndications :Tinea cruris Apply topically every 12 (twelve) hours. 60 g 3 Active fenofibrate micronized (Lofibra) 134 MG capsuleIndicatio ns:Mixed hyperlipidemia TAKE 1 CAPSULE BY MOUTH EVERY EVENING WITH A MEAL 90 capsule 3 Active buPROPion XL (Wellbutrin XL) 150 MG 24 hr tablet Take 1 tablet by mouth in the morning. With 300 mg tablet Active insulin glargine (Lantus) 100 UNIT/ML injection Inject 20 Units under the skin Once daily. Active traZODone (Desyrel) 100 MG tablet Take 100 mg by mouth if needed at bedtime for sleep. Active cholecalciferol (Vitamin D-3) 50 MCG (2000 UT) capsuleIndicatio ns:Low vitamin D level Take 1 capsule (50 mcg) by mouth Once per day. 30 capsule 3 Active propranolol (Inderal) 40 MG tabletIndication s:Essential hypertension TAKE 1 TABLET BY MOUTH TWICE DAILY IN THE MORNING AND IN THE EVENING 180 tablet Active tiotropium (Spiriva HandiHaler) 18 MCG inhalation capsuleIndicatio ns:Moderate persistent asthma without complication USE 1 CAPSULE FOR INHALATION ONCE A DAY DO NOT SWALLOW CAPSULE 30 capsule 5 Active Arnuity Ellipta 200 MCG/ACT inhaler INHALE 1 PUFF BY MOUTH EVERY DAY AT THE SAME TIME. RINSE MOUTH AFTER USING. DO NOT SWALLOW. 30 each 5 024 Active ketoconazole (NIZOral) 2 % shampooIndicatio ns:Pityriasis alba Apply topically 2 (two) times a week. 120 mL Active oxyCODONE (Roxicodone) 5 MG immediate release tabletIndication s:Chronic midline low back pain without sciatica Take 1 tablet (5 mg) by mouth every 8 (eight) hours if needed for severe pain. 84 tablet 025 Active Mapap 500 MG capsuleIndicatio ns:Other chronic pain TAKE 1 CAPSULE BY MOUTH EVERY 8 HOURS NEEDED FOR MODERATE PAIN OR FOR FEVER 30 capsule 025 Active Blood Pressure Monitoring (Omron 3 Series BP Monitor) deviceIndication s:Essential hypertension Use as directed 1 each 025 Active Blood Pressure Monitoring (Omron 3 Series BP Monitor) device USE DAILY DIRECTED 022 2024 Discontinued(R eorder (will not trigger notification to Pharmacy)) oxyCODONE (Roxicodone) 5 MG immediate release tabletIndication s:Chronic midline low back pain without sciatica Take 1 tablet (5 mg) by mouth every 8 (eight) hours if needed for severe pain. 84 tablet 024 2024 Discontinued(R eorder (will not trigger notification to Pharmacy)) Acetaminophen 500 MG capsuleIndicatio ns:Other chronic pain Take 1 capsule (500 mg) by mouth every 8 (eight) hours if needed for moderate pain or fever. 30 capsule 024 2024 Discontinued Active Problems Problem Noted Date Diagnosed Date Physical exam, annual 11/16/2024 Assessment & Plan (11/16/2024 12:31 PM EST): Physical exam today, aside from her chronic back pain is otherwise unremarkable Pityriasis alba 10/05/2024 Assessment & Plan (10/05/2024 10:46 AM EST): Will refer to our [facility] Derm clinic Intractable left heel pain 10/05/2024 Assessment & Plan (11/16/2024 11:14 AM EST): Referred to Podiatry, scheduled for 12/06/2024 Assessment & Plan (10/05/2024 10:50 AM EST): Referred to Podiatry Cyst of ovary 03/24/2024 Urinary incontinence 03/24/2024 Lower abdominal pain 06/10/2023 Assessment & Plan (09/14/2024 3:58 PM EST): Currently not complaining a CT of her abdomen 07/2023 that showed: No acute findings identified in the abdomen/pelvis. Redemonstrated hepatosplenomegaly. Assessment & Plan (07/15/2023 10:49 AM EDT): Patient seen recently, referred for an Abdominal US and a GI consult. This has been rescheduled for September pt no showed multiple times. Toady reminded of the appointment and need to have US done. Pt vgerbalized understanding Chronic pain of both knees 06/10/2023 Healthcare maintenance 06/10/2023 Assessment & Plan (09/14/2024 1:10 PM EST): Mammogram: NL : 11/15/2019, ordered Pap Smear: s/p FOREIGN Colonoscopy: 07/11/2021 Vaccines: Flu shot COPD (chronic obstructive pulmonary disease) Nonintractable chronic migraine 12/12/2022 Allergic rhinitis 12/12/2022 Osteoarthritis 12/12/2022 Bipolar affective disorder, currently depressed, moderate 01/19/2019 Assessment & Plan (11/16/2024 11:22 AM EST): Here for f/u Pt remains under the care of [facility] and doctors hospital in [facility]. Her psychiatrist is Dr Goyal ([phone]). She had a previous admission this year at [facility] for a psychiatric admission due to suicidal ideation. She today denies suicidal thoughts She is on a regimen of: Duloxetine 60 mg po daily Ropinolone 1 mg po daily Buproprion SR 150 mg daily , + 300 daily Topiramate 50 mg po qhs Mirtazapine 30 mg po prn for insomnia Klonopin 0.5 mg po 1/2 tab in am, 1 tab in afternoon and 1 tab at bedtime Patient denies any suicidal ideation or thoughts, Patient has crisis numbers and knows to use them if needed. Assessment & Plan (09/14/2024 1:08 PM EST): Here for f/u Pt remains under the care of [facility] in [facility]. Her psychiatrist is Dr Goyal ([phone]). She had a previous admission this year at [facility] for a psychiatric admission due to suicidal ideation. She today denies suicidal thoughts She is on a regimen of: Duloxetine 60 mg po daily Ropinolone 1 mg po daily Buproprion SR 150 mg daily , + 300 daily Topiramate 50 mg po qhs Mirtazapine 30 mg po prn for insomnia Klonopin 0.5 mg po 1/2 tab in am, 1 tab in afternoon and 1 tab at bedtime Patient denies any suicidal ideation or thoughts, Patient has crisis numbers and knows to use them if needed. Mixed hyperlipidemia 11/25/2017 Assessment & Plan (09/14/2024 4:24 PM EST): Here for a f/u Patient with elevated lipids. Most recent lipid profile from: Lab Results Component Value Date TRIG 758 (H) 07/18/2023 TRIG 910 (H) 07/15/2023 CHOL 237 (H) 07/15/2023 LDLCHOLCAL TNP 07/15/2023 HDL 27 (L) 07/15/2023 Currently on a regimen of: Lofibra, previously she was on Gemfibrozil 600 mg po BID advised to try to adhere to a low cholesterol diet, counseled and educated about diet and exercise, Patient encouraged to come up with a personal goal for weight loss. Plan: continue with current regimen, repeat Lipid profile prior to next visit Moderate persistent asthma 10/17/2016 Assessment & Plan (09/14/2024 4:06 PM EST): Recent exacerbation, seen at our [facility], just finished a Prednisone taper and Z- pack Of note pt has Moderate persistent asthma Pt has an over 20 years of smoking about 1 pack a day. Repeat PFT'S done on 01/27/2013 showed evidence of Restrictive lung disease CT of her chest done on 02/24/2013 findings suggestive of Asthma and a 2mm lung nodule, Pt was seen by Dr Gregory Llanos (Pulmonary) 06/[address] and recommended CT may be repeated if need be. Pt was seen with Dr Bhakta. Chronic tension-type headache 08/22/2015 Assessment & Plan (09/14/2024 3:57 PM EST): Currently not complaining. Previous work up included a CT of brain and a neck CTA that were unremarkable. Neurology evaluated her and diagnosed her with complex migraines. MRI negative. On Propranolol for migraine prevention. Today pt tells me she feels great, no headache whatsoever. Pt was last seen 10/31/2020 by Neurology. He started her on Topiramato 50 mg po daily Shoulder pain 08/22/2015 Essential hypertension 10/06/2014 Assessment & Plan (09/14/2024 4:09 PM EST): BP slightly elevated She is on a regimen of: Propranolol 40 mg po BID and Lisinopril 20 mg. Most recent electrolytes, Bun and Creatinine done on: Lab Results Component Value Date NA 139 05/16/2024 NA 136 07/27/2023 K 3.9 05/16/2024 K 3.9 07/27/2023 CL 105 05/16/2024 CL 105 07/27/2023 BUN 14 05/16/2024 BUN 15 07/27/2023 CREATININE 0.84 05/16/2024 CREATININE 0.86 07/27/2023 were within normal limits. patient advised to adhere to a low sodium diet, encouraged about medication compliance. Plan: Continue current regimen Assessment & Plan (03/24/2024 12:49 PM EDT): BP mildly-elevated off meds in setting of severe pain -restart inderal BID -check basic labs -encouraged home BP monitoring -advised contact [facility] if BP persistently elevated Assessment & Plan (07/15/2023 10:50 AM EDT): BP controlled Restrictive lung disease 02/15/2013 Periodic limb movement disorder 05/21/2012 Type 2 diabetes mellitus, wi th long-term current use of insulin 04/08/2012 Assessment & Plan (11/16/2024 11:21 AM EST): Pt here for a follow up She is on a regimen of: Amaryl 1 mg po daily, Lantus 20 units sc q pm and Trulicity 1.5 once a week. Metformin was discontinued during a previous hospitalziation due to Lactic Acidosis Hgb A1c 09/14/2024: 7.0 Eye exam was last done on: by Dr. Tyra Bruce [employer] 07/31/2018 Microalbumin checked on: 07/15/2023was 49.Pt is back on MYRNA inhibitor . Lisinopril Plan: continue current regimen Patient denies any family history of Medullary Thyroid Carcinoma or Multiple Endocrine Neoplasia syndrome type 2 (MEN 2). Foot check today is risk of: zero Pt reports compliance with Asa 81 mg po daily Pt advised to: adhere to diabetic diet check your blood sugars regularly check your feet on a daily basis. Assessment & Plan (09/14/2024 4:15 PM EST): Pt here for a follow up She is on a regimen of: Amaryl 1 mg po daily, Lantus 20 units sc q pm and Trulicity 1.5 once a week. Metformin was discontinued during a previous hospitalziation due to Lactic Acidosis Hgb A1c 09/14/2024: 7.0 Eye exam was last done on: by Dr. Tyra Bruce [employer]ic 07/31/2018 Microalbumin checked on: 07/15/2023was 49.Pt is back on MYRNA inhibitor . Lisinopril Plan: continue current regimen Patient denies any family history of Medullary Thyroid Carcinoma or Multiple Endocrine Neoplasia syndrome type 2 (MEN 2). Foot check today is risk of: zero Pt reports compliance with Asa 81 mg po daily Pt advised to: adhere to diabetic diet check your blood sugars regularly check your feet on a daily basis. Assessment & Plan (03/24/2024 12:49 PM EDT): A1c uncontrolled -restart trulicity weekly -encouraged regular BS monitoring -will have f/u scheduled with new PCP Assessment & Plan (07/15/2023 11:25 AM EDT): Most recent A1C=7.2 Patient denies hypoglycemic episodes but she is a bit week on her feet now. F/up 3 months for A1C Depressive disorder 04/08/2012 Obesity (BMI 30-39.9) 04/08/2012 Assessment & Plan (11/16/2024 11:23 AM EST): Patient has been counseled and educated about diet and exercise. Personal goal of weight loss discussedPatient has comorbidity of: DM Dietary Recommendations: Fruits, vegetables, whole grains, protein foods, and fat-free or low-fat dairy products are healthy choices. Eat different types of protein foods in your diet. This can include seafood, lean meats, poultry, beans, peas, lentils, nuts, seeds, soy products, and eggs. Limit foods and beverages higher in added sugars, saturated fat, and sodium. Exercise Recommendations: At least 150 minutes of moderate-intensity physical activity per week, or an equivalent combination of moderate- and vigorous-intensity activity Chronic low back pain 10/27/1959 Assessment & Plan (11/16/2024 11:20 AM EST): Patient here for follow up regarding her chronic low back pain Describes intensity 7/10 radiation to both legs. Pt is s/p anterior lumbar interbody fusion ALIF L4-L5 on 11/06/[address] Kaufman. according to pt she had a repeat MRI and was seen by Dr Kaufman on 09/25/12.He recommended f/u with Dr Adams at the pain clinic. Pt was under the care of the [facility]. Will refer back Pt had left for [place] and then came back EMG showed: IMPRESSION: 1. Probably chronic left lower lumbar radiculopathy. Due to limited EMG, acuteness could not be determined. 2. Mild sensory and motor peripheral neuropathy. Previously I had been Percocet 1 tab po q 8 hrs prn. When she came back I switched her to Oxycodone she has a narcotic contract with us, MRI of LS spine 10/2024 showed: IMPRESSION: Central and right subarticular disc herniation L5-S1 likely encroaching right S1 nerve root. Consider calcium metabolic disorder/osteopenia versus osteoporosis Pt was referred to Dr Díaz Neurosurgeon Continue Oxycodone and Acetaminophen Assessment & Plan (10/05/2024 10:49 AM EST): Patient here for follow up regarding her chronic low back pain Describes intensity 7/10 radiation to both legs. Pt is s/p anterior lumbar interbody fusion ALIF L4-L5 on 11/06/[address] Kaufman. according to pt she had a repeat MRI and was seen by Dr Kaufman on 09/25/12.He recommended f/u with Dr Adams at the pain clinic. Pt was under the care of the [facility]. Will refer back Pt had left for [place] and then came back EMG showed: IMPRESSION: 1. Probably chronic left lower lumbar radiculopathy. Due to limited EMG, acuteness could not be determined. 2. Mild sensory and motor peripheral neuropathy. Previously I had been Percocet 1 tab po q 8 hrs prn. When she came back I switched her to Oxycodone she has a narcotic contract with us, Will order an MRI of LS spine given EMG findings and refer back to [facility] Continue Oxycodone and Acetaminophen Assessment & Plan (09/14/2024 1:33 PM EST): unchanged intensity 7/10 radiation to both legs. Pt is s/p anterior lumbar interbody fusion ALIF L4-L5 on 11/06/[address] Kaufman. according to pt she had a repeat MRI and was seen by Dr Kaufman on 09/25/12.He recommended f/u with Dr Adams at the pain clinic. Pt was under the care of the [facility]. I have continued to prescribe her Percocet 1 tab po q 8 hrs prn. she has a narcotic contract with us, Assessment & Plan (03/24/2024 12:48 PM EDT): Significant worsening with intermittent paresthesias -L-spine XR with no evidence of acute fracture or lesion, mild spondylosis, and post-surgical changes FEBRUARY 2024 -referred for MRI L-spine -referred for EMG/NCS -change flexeril to baclofen to help with mm spasm -trial naprosyn BID -retrial low-dose gabapentin TID -restart percocet TID to help with severe pain, 5-day supply given -keep upcoming eval with Dr Díaz -advised RTC or go to ED if sx worsen Anemia [birth year]27/1959 Irritable bowel syndrome 10[birth year]27/1959 Resolved Problems Problem Noted Date Diagnosed Date Resolved Date Sore throat 07/15/2023 03/24/2024 Assessment & Plan (07/15/2023 11:24 AM EDT): Pt with c/o new onset of mild sore throat, dry cough and left earache, x 3 days On exam afebrile, throat no redness, no exudates and ear wnl. Denies any sick contacts or exposures Nothing to suggest strep on exam Likely viral Covie-19 testing negative supportive measures discussed with patient Asked to come back if symptoms do not improve or worsen Encounters Date Type Department Care Team Description 11/17/[address] [id number] Wojciech Li MD 11/16/2024 10:30 AM EST Office Visit [address] [address] Wojciech Li MD Type 2 diabetes mellitus without complication, with long-term current use of insulin (CMS/[facility]) (Primary Dx); Type 2 diabetes mellitus without complication, unspecified whether nursing home insulin use (CMS/HCC); Intractable left heel pain; Essential hypertension; Chronic midline low back pain without sciatica; Bipolar affective disorder, currently depressed, moderate (CMS/HCC); Physical exam, annual; Obesity (BMI 30-39.9); Dietary counseling; Exercise counseling 11/16/2024 Travel 11/12/2024 Telephone [facility] [address] [place] [address] [id number] Wojciech Li MD Referral 11/09/[address] [id number] Kaylee Hogan RN Results 11/09/2024 Orders Only [address] [id number] Wojciech Li MD Chronic right-sided low back pain without sciatica (Primary Dx) 11/04/2024 1:00 PM EST Clinical Support [facility] [address] [place] [address] Yusra Ledezma RN Chronic midline low back pain without sciatica 11/04/2024 9:00 AM EST Telemedicine [facility] [address] [place] [id number] Jackson Anne PharmD Type 2 diabetes mellitus without complication, unspecified whether moth exterminator insulin use (CMS/HCC) (Primary Dx); Essential hypertension; Mixed hyperlipidemia; Bipolar affective disorder, currently depressed, moderate (CMS/HCC); Chronic obstructive pulmonary disease, unspecified COPD type (CMS/HCC); Moderate persistent asthma without complication 11/04/2024 Refill [facility] [address] [place] [address] Wojciech Li MD Other chronic pain 11/04/2024 Refill [facility] [address] [place] [address] Yusra Ledezma RN Chronic midline low back pain without sciatica 11/04/2024 Patient Outreach [facility] [address] [place] [id number] Wojciech Li MD Pre-visit Planning ([facility] screening was completed on 09/14/2024) 11/04/2024 Travel 11/03/[address] [address] Wojciech Li MD Chart Prep 10/26/[address] [address] Wojciech Li MD 10/05/2024 11:00 AM EST Office Visit [facility] [address] [place] [phone] Wojciech Li MD Chronic midline low back pain without sciatica (Primary Dx); Pityriasis alba; Intractable left heel pain 10/05/2024 Telephone [facility] [address] [place] [address] Tory Chinchilla [place] Appointment Request 10/05/2024 Travel 10/02/2024 Refill [facility] [address] [facility] [place] [address] Dayanara Olmstead DO Moderate persistent asthma without complication 09/30/2024 Telephone [facility] [address] [facility] [place] [address] Wojciech Li MD Chart Prep 09/29/2024 Refill [facility] [address] [facility] [place] [address] Dayanara Olmstead DO Essential hypertension 09/28/2024 10:00 AM EST Nurse Only [facility] [address] [facility] [place] [address] 09/21/2024 Telephone [facility] [address] [place] [address] Yusra Ledezma, RN Appointment Request 09/20/2024 Telephone [facility] [address] [place] [address] Yusra Ledezma, RN 09/20/2024 Telephone [facility] [address] [facility] [place] [address] Wojciech Li MD Med Refill 09/17/2024 Telephone [facility] [address] [facility] [place] [address] Wojciech Li MD Lab Orders 09/17/2024 Refill [facility] [address] [facility] [place] [address] Wojciech Li MD Other chronic pain 09/16/2024 Orders Only [facility] [address] [facility] [place] [address] Wojciech Li MD Low vitamin D level (Primary Dx) 09/16/2024 Refill [facility] [address] [place] [address] Wojciech Li MD Mixed hyperlipidemia 09/16/2024 Travel 09/15/2024 Telephone [facility] [address] [place] [address] Yusra Ledezma, RN 09/14/2024 1:00 PM EST Office Visit [facility] [address] [place] [address] Wojciech Li MD Type 2 diabetes mellitus without complication, unspecified whether nursing home insulin use ([facility]) (Primary Dx); Essential hypertension; Lower abdominal pain; Type 2 diabetes mellitus without complication, with long-term current use of insulin ([facility]); Mixed hyperlipidemia; Chronic tension-type headache, not intractable; Moderate persistent asthma without complication; Bipolar affective disorder, currently depressed, moderate ([facility]); Healthcare maintenance; Chronic midline low back pain without sciatica; Tinea cruris 09/14/2024 Telephone [facility] [address] [place] [address] Ivette Barahona RN 09/14/2024 Travel 09/09/2024 10:00 AM EST Office Visit [facility] [address] [place] [address] Miriam Lai MD Acute exacerbation of COPD with asthma ([facility] SYSTEM/[facility]) (Primary Dx); Cough in adult patient; Chronic low back pain, unspecified back pain laterality, unspecified whether sciatica present; Chronic obstructive pulmonary disease, unspecified COPD type ([facility]) 09/06/2024 Telephone [facility] [address] [place] [phone] Wojciech Li MD Chart Prep 09/02/2024 Refill [facility] [address] [place] [address] [phone] Dayanara Olmstead DO Restless leg syndrome 08/31/2024 Refill [facility] [address] [place] [phone] Wojciech Li MD Type 2 diabetes mellitus without complication, unspecified whether nursing home insulin use ([facility]) from Last 3 Months Immunizations Name Administration Dates Next Due Influenza injectable quadriv alent IIV4 with preservative 11/25/2017 Influenza injectable quadriv alent preservative free 07/25/2022,09/18/2021,11/30/2015 Influenza, IIV3, injectable 09/28/2024, 4,07/15/2013 Influenza, Split (incl. jason fied surface antigen) 08/14/2012 Moderna Covid-19 Vaccine 12+ 09/19/2021,02/06/20 21,01/08/2021 Moderna Covid-19 Vaccine 6+ Bivalent 12/31/2022 Pneumococcal Conjugate PCV 20 09/28/2024 Pneumococcal Polysaccharide PPSV23 07/15/2013 Tdap 11/30/2015 Social History Tobacco Use Types Packs/Day Years Used Date Smoking Tobacco: Every Day Cigarettes Passive Smoke Exposure: Current Smokeless Tobacco: Never Tobacco Cessation:Ready to Q uit: Not Asked; Counseling Given: Not Answered Alcohol Use Standard Drinks/Week Comments Not Currently [...] Orientation Straight 08/26/2022 10 :16 AM EDT Last Filed Vital Signs Vital Sign Reading Time Taken Comments Blood Pressure 137/82 11/16/2024 11:07 AM EST Pulse 95 11/16/2024 11:07 AM EST Temperature 36.4 ??C (97.5 ??F) 11/16/2024 11:[address] Respiratory Rate 20 11/16/2024 11:06 AM EST Oxygen Saturation 98% 11/16/2024 11:06 AM EST Inhaled Oxygen Concentration - - Weight 83.6 kg (184 lb 6.4 oz) 11/16/2024 11:06 AM EST Height 162.6 cm (5' 4 ) 11/16/2024 11:06 AM EST Body Mass Index 31.65 11/16/2024 11:06 AM EST Plan of Treatment Upcoming Encounters Date Type Department Care Team (Late st Contact Info) Description 12/21/2024 11:00 AM EST Office Visit [facility] [address] [place] [phone] 01/06/2025 9:00 AM EDT Telemedicine [facility] [address] [place] [phone] Health Maintenance Due Date Last Done Comments CT Colonography 1970 FIT DNA/Cologuard 1970 FIT 1970 FOBT 1970 HIV Screening 1970 Sigmoidoscopy 1970 Diabetes: Foot Exam 1980 Eye Exam 1980 Hepatitis C Screening 1988 Hepatitis A Vaccines (1 of 2 - Risk 2-dose series) 1989 Hepatitis B Vaccines (1 of 3 - 19+ 3-dose series) 1989 Dental Oral Exam 10/29/2019 04/27/2019, 09/26/2014 Dental Prophylaxis 01/13/2020 07/14/2019, 1 11/27/2013, 03/24/2014, Additional history exists Dental X-Ray: Bitewings 04/28/2020 04/27/20 19, 09/26/2014, 03/24/2014 Zoster Vaccines (1 of 2) 2020 Mammogram 11/16/2021 11/16/2019, 08/05/2018 Dental X-Ray: Full Mouth 04/28/2022 04/27/2019 COVID-19 Vaccine ( season) 2024 12/31/2022, 09/19/2021, 02/05/2021, Additional history exists Depression Monitoring (PHQ-9) 03/14/2025 09/14/2024, 09/14/2024 Diabetes: Hemoglobin A1C 03/16/2025 024, 09/14/2024, 03/24/2024, Additional history exists Tobacco Screening 09/09/2025 09/09/2024 Alcohol/Substance Use Screening 09/14/2025 09/14/2024 Depression Screening 09/14/2025 09/14/2024, 09/14/20 24 SDOH Screening 09/14/2025 09/14/2024 Diabetes: Urine Protein Screening 09/16/2025 09/16/2024, 07/15/2023, 01/16/2021 Lipid Panel 09/16/2025 09/16/2024, 06/27, 01/16/2021 DTaP/Tdap/Td Vaccines (2 - Td or Tdap) 11/30/2025 11/30/2015 Colonoscopy 07/11/2026 07/11/2021 Colorectal Cancer Screening 07/11/2026 RSV Patients and Patients Aged 60 years or older (1 - 1-dose 75+ series) 2045 Influenza Vaccine Completed 09/28/2024, , 09/18/2021, Additional history exists Pneumococcal Vaccine: Pediatrics (0 to 5 Years) and At-Risk Patients (6 to 64 Years) Completed 09/28/2024, 07/15/2013 HIB Vaccines Aged Out No longer eligi ble based on patient's age to complete this topic HPV Vaccines Aged Out No longer eligi ble based on patient's age to complete this topic IPV Vaccines Aged Out No longer eligi ble based on patient's age to complete this topic Meningococcal Vaccine Aged Out No ndaja jenaro eligible based on patient's age to complete this topic RSV under 20 months Aged Out No longe r eligible based on patient's age to complete this topic Rotavirus Vaccines Aged Out No longer eligible based on patient's age to complete this topic Procedures Procedure Name Priority Date/Time Associated Diagnosis Comments POCT GLUCOSE Routine 11/16/2024 11:08 AM EST Type 2 diabetes mellitus without complication, unspecified whether moth exterminator insulin use (CMS/HCC) MR LUMBAR SPINE WO CONTRAST Routine 11/07/2024 8:54 AM EST Chronic midline low back pain without sciatica POCT BARRINGTON-14 URINE DRUG SCREEN Routine 11/04/2024 1:22 PM EST Chronic midline low back pain without sciatica COMPREHENSIVE METABOLIC PANEL Routine 09/16/2024 6:49 AM EST Essential hypertension LIPID PANEL, STANDARD Routine 09/16/2024 6:49 AM EST Mixed hyperlipidemia CBC Routine 09/16/2024 6:49 AM EST Type 2 diabetes mellitus with other specified complication, unspecified whether nursing home insulin use (CMS/HCC) HEMOGLOBIN A1C Routine 09/16/2024 6:49 AM EST Type 2 diabetes mellitus with other specified complication, unspecified whether nursing home insulin use (CMS/HCC) HEPATIC FUNCTION PANEL Routine 09/16/2024 6:49 AM EST Type 2 diabetes mellitus with other specified complication, unspecified whether moth exterminator insulin use (CMS/HCC) TSH Routine 09/16/2024 6:49 AM EST Type 2 diabetes mellitus with other specified complication, unspecified whether moth exterminator insulin use (CMS/HCC) VITAMIN D,25-OH,TOTAL,IA Routine 09/16/2024 6:49 AM EST Type 2 diabetes mellitus with other specified complication, unspecified whether nursing home insulin use (CMS/HCC) T4, FREE Routine 09/16/2024 6:49 AM EST Type 2 diabetes mellitus with other specified complication, unspecified whether moth exterminator insulin use ([facility]) ALBUMIN, RANDOM URINE W/CREATININE Routine 09/16/2024 6:48 AM EST Type 2 diabetes mellitus without complication, with long-term current use of insulin ([facility]) POCT GLYCATED HEMOGLOBIN, TOTAL Routine 09/14/2024 1:09 PM EST Type 2 diabetes mellitus without complication, with long-term current use of insulin ([facility]) POCT GLUCOSE Routine 09/14/2024 1:06 PM EST Type 2 diabetes mellitus without complication, with long-term current use of insulin ([facility]) XR CHEST 2 VIEWS Urgent 09/09/2024 11:0 4 AM EST Cough in adult patient POCT INFLUENZA B (ID NOW RAPID MOLECULAR) Routine 09/09/2024 10:10 AM EST Cough in adult patient POCT INFLUENZA A (ID NOW RAPID MOLECULAR) Routine 09/09/2024 10:09 AM EST Cough in adult patient POCT RAPID COVID ANTIGEN Routine 09/09/2024 10:09 AM EST Cough in adult patient HM COLONOSCOPY Routine 07/11/2021 10:40 AM EDT BI MAMMOGRAM SCREENING BILATERAL Routine 11/16/2019 1:46 PM EST PROPHYLAXIS - ADULT Routine 07/14/2019 1 2:00 AM EDT DIAGNOSTIC - DIAGNOSTIC IMAGING - INTRAORAL - COMPREHENSIVE SERIES OF RADIOGRAPHIC IMAGES Routine 04/27/2019 12:00 AM EDT PERIODIC ORAL EVALUATION - ESTABLISHED PATIENT Routine 04/27/2019 12:00 AM EDT from Last 3 Months or Most Recently Relevant to Health Maintenance Results * POCT Glucose (11/16/2024 11:08 AM EST) Only the most recent of2 resultswithin the time period is included. Glucose Blood, POC 86 60 - 200 mg/dL QC Media Lot # [id number] Lot# Expiration Date [id number] Blood Capillary blood specimen / Unknown 11/16/2024 11:08 AM EST us Wojciech Carver MD POINT OF CARE TEST EN TER/EDIT ORDERABLES Final Result * MR Lumbar Spine w/o Contrast (11/07/2024 8:54 AM EST) Anatomical Region Laterality Modality Spine, L-spine Magnetic Resonan ce 11/07/2024 8:54 AM EST Narrative 11/09/2024 9:44 AM EST ? [facility] ?[address] ?[place] [address] ? Magnetic Resonance Report ? Signed ? Patient: Yefri,Brandie ?MR#: [id number] ?? [id number] ? : 1970 ?Acct:[id number] ? Age/Sex: 54 / F ?ADM Date: 11/07/24 ? Loc: HO.MRI ? Attending Dr: Wojciech Kinsey MD ? Ordering Physician: Wojciech Kinsey MD ?? Date of Service: 11/07/24 ?? Procedure(s): MR lumbar spine wo con ?? Accession Number(s): [id number] ? cc: Wojciech Kinsey MD ? EXAMINATION: ?? MR LUMBAR SPINE WITHOUT CONTRAST ? CLINICAL INFORMATION: ?? Severe low back pain. Radiculopathy according to electro myogram. ? COMPARISON: ?? MRI dated August 15, 2007. ?? Correlated to x-ray dated March 16, 2024 demonstrated postsurgical ?? changes at L4-5 and mild spondylosis.. ? TECHNIQUE: ?? MRI of the lumbar spine was obtained using routine sequences without ?? contrast. ? FINDINGS: ?? Submitted for interpretation on November 09, 2024. ? Last rib-bearing vertebra labeled T12. ? Paramagnetic field distortion, minimal secondary to intervertebral disc ?? spacer, L4-5. ?? No bone marrow STIR signal abnormality. ?? Bone marrow inhomogeneity involving axial skeleton and more conspicuous ?? in the included bony pelvis. ?? Modic type II and III endplate changes, L4-5. ?? Multilevel disc desiccation and marginal osteophyte formation more ?? conspicuous at L1-2. ?? Focal hyperintense T2 signal in the posterior intervertebral disc L5-S1 ?? likely focal annular fissure. ?? There is a subtle grade 1 anterolisthesis L2-3. ?? Conus medullaris ends at superior endplate of L1 with normal signal. ? There is a 1 mm cylindrical shaped intradural extramedullary intrinsic ?? hyperintense T1 signal in the ventral aspect of the conus ?? medullaris/filum terminalis, T12-L1 to L2-3. ? T12-L1: ?? No disc herniation. No neuroforamina stenosis. ? L1-2: ?? Broad-based disc bulging. Facet joint hypertrophy. No compression upon ?? neural elements. ? L2-3: ?? Broad-based disc bulging. Facet joint and ligamentum flavum ?? hypertrophy. No compression upon neural elements. ? L3-4: ?? Broad-based disc bulging. Facet joint and ligamentum flavum ?? hypertrophy. No compression upon neural elements. ? L4-5: Postsurgical changes. Facet joint hypertrophy as well as ?? ligamentum flavum. Reduced AP diameter of the thecal sac and the neural ?? foramina. ? L5-S1: ?? Central right subarticular disc herniation abutting the right S1 nerve ?? root on its lateral recess. Bilateral facet joint hypertrophy. ?? Bilateral neuroforamina narrowing encroaching the exiting nerve roots. ? No prevertebral compartment hematoma, mass or fluid collection. ?? Degenerative changes in the sacroiliac joints. ? MR/MR lumbar spine wo con ?? IMPRESSION: ?? Central and right subarticular disc herniation L5-S1 likely encroaching ?? right S1 nerve root. ?? Consider calcium metabolic disorder/osteopenia versus osteoporosis ? Electronically signed by: ??Kwadwo Salcedo MD ??11/09/2024 09:41 AM ?? EST RP ? Dictated By: ?Kwadwo Hodges MD ? Signed By: ?<Electronically signed by Kwadwo Barahona MD in OV> ? 11/09/24 0941 ? DD/DT: 11/07/ 0854 ? TD/TT: 11/07/24 0907 ? Psychiatric Secretary: ? Procedure Note Donotuseinterpreter, Image - 11/09/2024 [place] [address] Magnetic Resonance Report Signed Patient: Toya Asif#: [id number] : 1970Acct:[id number] Age/Sex: 54 / FADM Date: 11/07/24 Loc: HO.MRI Attending Dr: Wojciech Kinsey MD Ordering Physician: Wojciech Kinsey MD Date of Service: 11/07/24 Procedure(s): MR lumbar spine wo con Accession Number(s): [id number] cc: Wojciech Kinsey MD EXAMINATION: MR LUMBAR SPINE WITHOUT CONTRAST CLINICAL INFORMATION: Severe low back pain. Radiculopathy according to electro myogram. COMPARISON: MRI dated August 15, 2007. Correlated to x-ray dated March 16, 2024 demonstrated postsurgical changes at L4-5 and mild spondylosis.. TECHNIQUE: MRI of the lumbar spine was obtained using routine sequences without contrast. FINDINGS: Submitted for interpretation on November 09, 2024. Last rib-bearing vertebra labeled T12. Paramagnetic field distortion, minimal secondary to intervertebral disc spacer, L4-5. No bone marrow STIR signal abnormality. Bone marrow inhomogeneity involving axial skeleton and more conspicuous in the included bony pelvis. Modic type II and III endplate changes, L4-5. Multilevel disc desiccation and marginal osteophyte formation more conspicuous at L1-2. Focal hyperintense T2 signal in the posterior intervertebral disc L5-S1 likely focal annular fissure. There is a subtle grade 1 anterolisthesis L2-3. Conus medullaris ends at superior endplate of L1 with normal signal. There is a 1 mm cylindrical shaped intradural extramedullary intrinsic hyperintense T1 signal in the ventral aspect of the conus medullaris/filum terminalis, T12-L1 to L2-3. T12-L1: No disc herniation. No neuroforamina stenosis. L1-2: Broad-based disc bulging. Facet joint hypertrophy. No compression upon neural elements. L2-3: Broad-based disc bulging. Facet joint and ligamentum flavum hypertrophy. No compression upon neural elements. L3-4: Broad-based disc bulging. Facet joint and ligamentum flavum hypertrophy. No compression upon neural elements. L4-5: Postsurgical changes. Facet joint hypertrophy as well as ligamentum flavum. Reduced AP diameter of the thecal sac and the neural foramina. L5-S1: Central right subarticular disc herniation abutting the right S1 nerve root on its lateral recess. Bilateral facet joint hypertrophy. Bilateral neuroforamina narrowing encroaching the exiting nerve roots. No prevertebral compartment hematoma, mass or fluid collection. Degenerative changes in the sacroiliac joints. MR/MR lumbar spine wo con IMPRESSION: Central and right subarticular disc herniation L5-S1 likely encroaching right S1 nerve root. Consider calcium metabolic disorder/osteopenia versus osteoporosis Electronically signed by: Kwadwo Salcedo MD 11/09/2024 09:41 AM EST RP Dictated By: Kwadwo Hodges MD Signed By: <Electronically signed by Kwadwo Barahona MDin OV> 11/09/24 0941 DD/ 0854 TD/TT: 11/07/24 0907 Psychiatric Secretary: Wojciech Carver MD IMG MRI PROCEDURES Fi nal Result * POCT BARRINGTON-14 Urine Drug Screen (11/04/2024 1:22 PM EST) Urine Urine specimen obtained by clean catch procedure / Unknown 11/04/2024 1:22 PM EST Narrative Yusra Ledezma RN - 11/04/2024 1:22 PM EST negative for THC, MOP, OXY, LEIGHTON, MET, AMP, BZO, BAR, MTD, BUPG, TCA, MDMA, PCP, PPX. Lot# [id number] Exp: 10-02-25 Wojciech Carver MD POINT OF CARE TEST EN TER/EDIT ORDERABLES Final Result * (ABNORMAL) Vitamin D, 25-Hydroxy, Total, Immunoassay (09/16/2024 6:49 AM EST) Vitamin D 25-OH Total 26.9(L) >30 ng/mL [facility] Comment:Health Based Referen ce Values*< 20 ng/mL Mowjihwnk91-19 ng/mL Insufficient> 30 ng/mL Sufficient*Olga AMADOR. N Engl J Med. 2007;357:266-280Care must be taken in interpreting Vitamin D results fromdifferent laboratories and methodologies. Published datademonstrated that results from patients undergoinghemodialysis may show a negative bias when tested withvarious automated 25-OH vitamin D assays when compared toLC-MS/MS.When testing samples from patients whose predominant form ofVitamin D is Vitamin D2, such as patients receiving VitaminD2 supplementation, results that are subtherapeutic shouldbe confirmed with another method such as LC-MS/MS. Blood Venous blood specimen / Unknown 09/16/2024 6:49 AM EST 09/16/2024 6:49 AM EST us Dayanara Olmstead DO LAB BLOOD ORDERABLES Final R esult [facility] [address] [place] [address] [phone] * (ABNORMAL) CBC (09/16/2024 6:49 AM EST) White Blood Count 11.7(H) 4.8 - 10.8 X10*3/uL [facility] Red Blood Count 4.40 4.20 - 5.50 X10*6/uL [facility] Hemoglobin 13.9 12.0 - 16.0 g/dl [facility] Hematocrit 38.4 37.0 - 47.0 % [facility] Mean Corpuscular Volume 87.3 80.0 - 98.0 fL [facility] Mean Corpuscular Hemoglobin 31.6 27.0 - 33.0 pg [facility] Mean Corpuscular HGB Conc 36.2(H) 31.0 - 35.0 g/dl [facility] Red Cell Distribution Width 12.4 11.0 - 16.0 % [facility] Platelet Count 444(H) 160 - 400 X10*3/uL [facility] Mean Platelet Volume 9.5 9.4 - 12.3 fL [facility] NRBC Pct Auto 0.0 0.0 - 0.2 /100WBC [facility] NRBC Abs Auto 0.000 0.0 - 0.012 X10*3/uL [facility] Blood Venous blood specimen / Unknown 09/16/2024 6:49 AM EST 09/16/2024 6:49 AM EST Dayanara Olmstead DO LAB BLOOD ORDERABLES Final R esult Performing Organization Address City/[facility]/ZIP Co de Phone Number [facility] [address] [place] [phone] * TSH (09/16/2024 6:49 AM EST) Thyroid Stimulating Hormone 1.72 0.32 - 4.0 uIU/mL [facility] Comment:TSH 3rd Generation ( [employer] Kredits) Blood Venous blood specimen / Unknown 09/16/2024 6:49 AM EST 09/16/2024 6:49 AM EST Dayanara Olmstead DO LAB BLOOD ORDERABLES Final R esult Performing Organization Address City/[facility] Co de Phone Number [facility] [address] [place] [address] [phone] * T4, Free (09/16/2024 6:49 AM EST) Free T4 (Free Thyroxine) 1.06 0.71 - 1.85 ng/dL [facility] Blood Venous blood specimen / Unknown 09/16/2024 6:49 AM EST 09/16/2024 6:49 AM EST Dayanara Olmstead DO LAB BLOOD ORDERABLES Final R esult Performing Organization Address City/[facility]/ZIP Co de Phone Number [facility] [address] [place] [address] [phone] * (ABNORMAL) Hemoglobin A1c (09/16/2024 6:49 AM EST) Hemoglobin A1c 6.7(H) <6.0 % [facility] Comment:Hemoglobin A1C Refer ence Range Adults: 4.8 - 6.0 % Non diabetic: < 6.0 % Goal: < 7.0 %Additional Action Suggested: > 8.0 %Note: Hemoglobin A1c results are invalid for patients with abnormal amounts of HbF. Blood transfusions may impact the HbA1c concentration in the patient sample. Estimated Average Glucose 146 mg/dL [facility] Comment:eAG = Estimated ave rage glucose which is %A1C expressed asaverage glucose, using the formula of the [id number] Glucose study (ADAG), Diabetes Care, Vol.31,#8,May. 2007 Blood Venous blood specimen / Unknown 09/16/2024 6:49 AM EST 09/16/2024 6:49 AM EST us Dayanara Olmstead DO LAB BLOOD ORDERABLES Final R esult [facility] [address] [place] [address] [phone] * Hepatic Function Panel (09/16/2024 6:49 AM EST) Bilirubin, Direct 0.1 0.0 - 0.5 mg/dL [facility] Blood Venous blood specimen / Unknown 09/16/2024 6:49 AM EST 09/16/2024 6:49 AM EST [facility] BLOOD ORDERABLES Final R esult Performing Organization Address City/[facility]/ZIP Co de Phone Number [facility] [address] [place] [address] [phone] * (ABNORMAL) Lipid Panel, Standard (09/16/2024 6:49 AM EST) Triglycerides 395(H) <150 mg/dL [facility] Comment:Desirable Triglyceri de: less than 150 mg/dLBorderline High Triglyceride 150-199 mg/dLHigh Triglyceride: 200-499 mg/dLVery High Triglyceride: greater than or equal to 5OO mg/dL Cholesterol 184 <200 mg/dL [facility] Comment:Desirable Cholestero l: less than 200 mg/dLBorderline High Cholesterol: 200-239 mg/dLHigh Cholesterol: greater than 239 mg/dL LDL Cholesterol Calculated 69 <100 mg/dL [facility] Comment:Desirable LDL: less than 100 mg/dLNear Optimal/Above Optimal LDL: 110- 129 mg/dLBorderline High LDL: 130-159 mg/dLHigh LDL: 160-189 mg/dLVery High LDL: greater than or equal to 190 mg/dL HDL Cholesterol 36(L) >40 mg/dL [facility] Comment:Desirable HDL: great er than 40 mg/dL Note: This HDL assay may give artificially low results in patients with liver disease. Blood Venous blood specimen / Unknown 09/16/2024 6:49 AM EST 09/16/2024 6:49 AM EST us Wojciech Carver MD LAB BLOOD ORDERABLES Final Result [facility] [address] [place] [address] [phone] * (ABNORMAL) Comprehensive Metabolic Panel (09/16/2024 6:49 AM EST) Sodium 139 135 - 145 mmol/L [facility] Potassium 3.9 3.3 - 5.1 mmol/L [facility] Chloride 104 96 - 108 mmol/L [facility] Carbon Dioxide 28 22 - 29 mmol/L [facility] Anion Gap 11(L) 12 - 20 [facility] Urea Nitrogen (BUN) 13 9 - 16 mg/dL [facility] Creatinine, Serum 0.75 0.5 - 1.4 mg/dL [facility] Estimated Glomerular Filt Rate >60 [facility] Comment:Chronic Kidney Disea se: Estimated GFR < 60 mL/min/[id number] Kidney Disease: Estimated GFR < 15 mL/min/1.73m2 Glucose 127(H) 60 - 115 mg/dL [facility] Calcium 10.4(H) 8.4 - 10.2 mg/dL [facility] Bilirubin, Total 0.3 0.0 - 1.0 mg/dL [facility] Aspartate Amino Transferase 16 5 - 31 U/L [facility] Alanine Aminotransferase 45(H) 0 - 31 U/L [facility] Total Protein 7.5 6.5 - 8.0 g/dL [facility] Albumin Level 4.2 3.5 - 5.0 g/dL [facility] Alkaline Phosphatase 115 39 - 117 U/L [facility] Blood Venous blood specimen / Unknown 09/16/2024 6:49 AM EST 09/16/2024 6:49 AM EST Wojciech Carver MD LAB BLOOD ORDERABLES Final Result [facility] [address] [place] [address] [phone] * (ABNORMAL) Albumin, Random Urine W/Creatinine (09/16/2024 6:48 AM EST) Creatinine, Urine 199.57 mg/dL [facility] Microalbumin Urine 76.0 mg/L [facility] Microalbum Creatinine Ratio Ur 38.0(H) <30 ug/mg cr [facility] Comment:Albumin/Creatinine R atio Reference Ranges: Normal: < 30 ug/mg creatinine Microalbuminuria: 30 - 300 ug/mg creatinineClinical Albuminuria: > 300 ug/mg creatinine Urine (Urine, Random) 09/16/2024 6:48 AM EST 09/16/2024 7:29 AM EST Wojciech Carver MD LAB URINE ORDERABLES Final Result [facility] [address] [place] [phone] * (ABNORMAL) POCT HGB A1C (09/14/2024 1:09 PM EST) Hemoglobin A1C 7.0(A) 4.0 - 6.0 % QC Media Lot # [id number] Lot# Expiration Date [id number] Blood 09/14/2024 1:09 PM EST us Wojciech Carver MD POINT OF CARE TEST EN TER/EDIT ORDERABLES Final Result * XR Chest 2 Views (09/09/2024 11:04 AM EST) Anatomical Region Laterality Modality Chest Radiographic Tammie ging 09/09/2024 11:0 4 AM EST Narrative 09/09/2024 2:52 PM EST ?[facility] ?[address] ?[place] [address] ?XRay Report ? Signed ? Patient: Yefri,Brandie ?MR#: [id number] ?? [id number] ? : 1970 ?Acct:[id number] ? Age/Sex: 54 / F ?ADM Date: 09/09/24 ? Loc: HO.HHCX ? Attending Dr: Miriam Lai MD ? Ordering Physician: Miriam Lai MD ?? Date of Service: 09/09/24 ?? Procedure(s): XR chest 2V ?? Accession Number(s): [id number] ? cc: Miriam Lai MD ? EXAMINATION: ?? XR CHEST ? CLINICAL INFORMATION: ?? Cough and wheezing. Evaluate for pneumonia. ? COMPARISON: ?? Most recent chest radiograph dated 10/22/2021. ? TECHNIQUE: ?? 2 views of the chest were obtained. ? FINDINGS: ?? The lungs are clear. The cardiomediastinal silhouette is normal in ?? size. There is no pleural effusion or pneumothorax. No acute osseous ?? abnormality. ? XR/XR chest 2V ?? IMPRESSION: ?? No acute cardiopulmonary findings. ? Electronically signed by: ??Dimitry Lovett MD ??09/09/2024 02:50 PM EST ?? RP ? Dictated By: ?Dimitry Lovett MD ? Signed By: ?<Electronically signed by Dimitry Lovett MD in OV> ?09/09/24 1450 ? DD/ 1104 ? TD/TT: 09/09/24 1124 ? Psychiatric Secretary: SR ? Procedure Note Donotuseinterpreter, Image - 09/09/2024 [facility] [address] [place] [address] XRay Report Signed Patient: Toya Asif#: [id number] : 1970Acct:[id number] Age/Sex: 54 / FADM Date: 09/09/24 Loc: HO.HHCX Attending Dr: Miriam Lai MD Ordering Physician: Miriam Lai MD Date of Service: 09/09/24 Procedure(s): XR chest 2V Accession Number(s): [id number] cc: Miriam Lai MD EXAMINATION: XR CHEST CLINICAL INFORMATION: Cough and wheezing. Evaluate for pneumonia. COMPARISON: Most recent chest radiograph dated 10/22/2021. TECHNIQUE: 2 views of the chest were obtained. FINDINGS: The lungs are clear. The cardiomediastinal silhouette is normal in size. There is no pleural effusion or pneumothorax. No acute osseous abnormality. XR/XR chest 2V IMPRESSION: No acute cardiopulmonary findings. Electronically signed by: Dimitry Lovett MD 09/09/2024 02:50 PM EST Dictated By: Dimitry Lovett MD Signed By: <Electronically signed by Dimitry Lovett MD in OV> 09/09/24 1450 DD/ 1104 TD/TT: 09/09/24 1124 Psychiatric Secretary: SR Miriam Lai MD IMG XR PROCEDURES Final Resul t * Influenza B (ID NOW Rapid Molecular) (09/09/2024 10:10 AM EST) Influenza B Negative Negative, Indeterminate [facility] Swab 09/09/2024 10:1 0 AM EST Miriam Lai MD POINT OF CARE TEST ENTER/EDIT ORDERABLES Final Result Performing Organization Address City/[facility]/ZIP Co de Phone Number [facility] [address] [place] [phone] * Influenza A (ID NOW Rapid Molecular) (09/09/2024 10:09 AM EST) Influenza A Negative Negative, Indeterminate [facility] Swab 09/09/2024 10:0 9 AM EST Miriam Lai MD POINT OF CARE TEST ENTER/EDIT ORDERABLES Final Result Performing Organization Address [facility] Co de Phone Number [facility] [address] [place] [phone] * POCT Rapid COVID Ag (09/09/2024 10:09 AM EST) Rapid COVID Ag Negative Swab 09/09/2024 10:0 9 AM EST Miriam Lai MD POINT OF CARE TEST ENTER/EDIT ORDERABLES Final Result * Hm Colonoscopy (07/11/2021 10:40 AM EDT) Historical Provider HEALTH MAINTENANCE Final Result * 3D DIGITAL ROSENDA SCR MAMMO 1 (11/16/2019 1:46 PM EST) Anatomical Region Laterality Modality Breast Bilateral Mammography 11/16/2019 1:46 PM EST Narrative 11/16/2019 1:47 PM EST Refer to the Notes tab for result details Legacy Procedure: 3D DIGITAL ROSENDA SCR MAMMO 1 Procedure Note ProviderJuan MD - 01/18/2023 Refer to the Notes tab for result details Legacy Procedure: 3D DIGITAL ROSENDA SCR MAMMO 1 Wojciech Carver MD IMG BI PROCEDURES Fin al Result from Last 3 Months or Most Recently Relevant to Health Maintenance Insurance [place] [facility] MEDICAID STAND ADULT Care Teams Director Of Integrated Marketing Relationship Specialty Start Date End Date Wojciech Li MD [address] [place] [phone] PCP - General Internal Medicine 04/12/24
--- OUTSIDE RECORDS SUMMARY | 2024-11-19 11:47 | XMS_ITS | Encounter Summary ---
Author Organization [employer] Address [address] [facility] 7t [place] [address] Care Team Providers Care Sub Plant Manager Name Role Phone Wojciech Li MD Primary Care Provide r Reason for Visit * Reason Comments controlled substance treatment Encounter Details Date Type Department Care Team (Latest Contact Info) Description 11/04/2024 1:00 PM EST Clinical Support [facility] [address] [place] [address] Yusra Ledezma, RN [address] [place] [address] Chronic midline low back pain without sciatica [...] as of this encounter Progress Notes * Yusra Ledezma RN - 11/04/2024 1:00 PM EST S: Pt here for VETERINARY TECHNOLOGIST RV. Patient here wit sister who is interpreting. Prescribed Oxycodone 5mg tid PRN. [facility] has been taking as prescribed. States did not get a refill in a few week and has been in alot of pain. [facility] medication provides 90% pain relief when taken. Pt reports smoking 7-8 cigarettes a day. Pt denies ETOH/illicit drug/marijuana use. Currently rates pain a 8/10. Current pain sites are R hip radiating down to L foot, back. VETERINARY TECHNOLOGIST Agreement renewed today. O: TURRET PUNCH PRESS OPERATOR verified today. Rx last filled on 09/14/24. Pill count not performed as patient does not have any pills left, 0 expected. Medication is not overused by patient. .BPI updated today. Pain severity score of (8), activity interference score of (9). Previous BPI completed (06/24/24) with pain severity score of (8), activity interference score of (9). UTOX performed, negative for all tested substances, as expected. .Fentanyl testing: negative Lot# [id number] Exp: 10-10-25 Last PCP visit was 10/05/24. A: VETERINARY TECHNOLOGIST Agreement Revisit: Opioid dependence related to chronic pain. P: Patient to continue taking medication only as prescribed; chronic pain group/ VETERINARY TECHNOLOGIST appointment scheduled for 12/21/24 @ 11a, F/U sooner PRN. Appointment reminder given. Patient verbalized understanding and agreed to plan. documented in this encounter Plan of Treatment Upcoming Encounters Date Type Department Care Team (Late st Contact Info) Description 12/21/2024 11:00 AM EST Office Visit [facility] MEDICINE [address] [place] [address] 01/06/2025 9:00 AM EDT Telemedicine [address] [address] documented as of this encounter Procedures Procedure Name Priority Date/Time Associated Diagnosis Comments POCT BARRINGTON-14 URINE DRUG SCREEN Routine 11/04/2024 1:22 PM EST Chronic midline low back pain without sciatica documented in this encounter Results * POCT BARRIGNTON-14 Urine Drug Screen (11/04/2024 1:22 PM EST) Urine Urine specimen obtained by clean catch procedure / Unknown 11/04/2024 1:22 PM EST Narrative Yusra Ledezma RN - 11/04/2024 1:22 PM EST negative for THC, MOP, OXY, LEIGHTON, MET, AMP, BZO, BAR, MTD, BUPG, TCA, MDMA, PCP, PPX. Lot# [id number] Exp: 10-02-25 us Wojciech Carver MD POINT OF CARE TEST EN TER/EDIT ORDERABLES Final Result documented in this encounter Visit Diagnoses Diagnosis Chronic midline low back pain without sciatica documented in this encounter Additional Health Concerns Assessment Noted Time PHQ-9 Depression Total Score: 9 09/14/20 24 1:06 PM EST documented as of this encounter Care Teams Sub Plant Manager Relationship Specialty Start Date End Date Wojciech Li MD [address] [place] [address] PCP - General Internal Medicine 04/12/24 documented as of this encounter
--- OUTSIDE RECORDS SUMMARY | 2024-11-19 11:47 | XMS_ITS | Encounter Summary ---
Author Organization [employer] Address 75 [facility] 7t [place] [address] Care Team Providers Care Braille Teacher Name Role Phone Wojciech Li MD Primary Care Provide r Reason for Visit * Reason Comments Med Refill Encounter Details Date Type Department Care Team (Late st Contact Info) Description 11/04/2024 Refill [facility] MEDICINE [address] [place], [place] [phone] Wojciech Li MD [address] [place], [place] [phone] Other chronic pain Social History Tobacco Use Types Packs/Day Years [...] with others, in a hotel, in a skilled nursing, living outside on the street, on a [...] Description 12/21/2024 11:00 AM EST Office Visit [facility] MED[facility] [address] [place] [address] 01/06/2025 9:00 AM EDT Telemedicine [facility] [address] [place] [address] documented as of this encounter Visit Diagnoses Diagnosis Other chronic pain documented in this encounter Additional Health Concerns Assessment Noted Time PHQ-9 Depression Total Score: 9 09/14/20 24 1:06 PM EST documented as of this encounter Care Teams Braille Teacher Relationship Specialty Start Date End Date Wojciech Li MD [address] [place] [address] PCP - General Internal Medicine 04/12/24 documented as of this encounter
--- OUTSIDE RECORDS SUMMARY | 2024-11-19 11:48 | XMS_ITS | Encounter Summary ---
Author Organization [employer] Address [address] [facility] 7t [place] [address] Care Team Providers Care Clay Artisan Name Role Phone Wojciech Li MD Primary Care Provide r Reason for Visit * Reason Onset Date Comments Chart Prep 11/03/2024 Encounter Details Date Type Department Care Team ([facility] st Contact Info) Description 11/03/2024 Telephone [facility] MED[facility] [address] [place] [address] Wojciech Li MD [address] [place] [address] Chart Prep Social History Tobacco Use Types Packs/Day Years [...] with others, in a hotel, in a long term, living outside on the street, on a [...] encounter Miscellaneous Notes * Telephone Encounter - Lu Paulino [place] - 11/03/2024 3:58 PM EST Chart Prep Labs: not applicable Images: Pt is booked for Mammo on 11/18/2024 @11:45 AM and MRI Lumbar on 11/07 @9AM. Vaccines due: Covid Due, Hep A Due, Hep B Due, and Shingles in pharmacy Due Referrals: Physical Therapy pending appt; faxed a request for notes in case pt has been seen. Screenings: Mammogram, Eye Exam, Foot Exam, and HIV screening Overdue care gaps: Glucose and Oral Health Chart prep for upcoming appt with Dr.Esparza chavira LB documented in this encounter Plan of Treatment Upcoming Encounters Date Type Department Care Team (Late st Contact Info) Description 12/21/2024 11:00 AM EST Office Visit [facility] MEDICINE [address] [place] [address] 01/06/2025 9:00 AM EDT Telemedicine [facility] MED[facility]INE [address] [place] [address], [place] [address] documented as of this encounter Visit Diagnoses Not on filedocumented in this encounter Additional Health Concerns Assessment Noted Time PHQ-9 Depression Total Score: 9 09/14/20 24 1:06 PM EST documented as of this encounter Care Teams Clay Artisan Relationship Specialty Start Date End Date Wojciech Li MD [address] [place] [address] PCP - General Internal Medicine 04/12/24 documented as of this encounter
--- OUTSIDE RECORDS SUMMARY | 2024-11-19 11:48 | XMS_ITS | Encounter Summary ---
Author Organization [employer] Address [address] 7[address] [place] [address] Care Team Providers Care Electromechanical Inspector Name Role Phone Wojciech Li MD Primary Care Provide r Reason for Visit * Reason Onset Date Comments Appointment Request 06/08/2024 Encounter Details Date Type Department Care Team ([facility] st Contact Info) Description 06/08/2024 Telephone [facility] MEDICINE [address] [place] [address] Wojciech Li MD [address] [place] [address] Appointment Request Social History Tobacco Use Types Packs/Day Years Used Date Smoking Tobacco: Every Day Cigarettes Passive Smoke Exposure: Current Smokeless Tobacco: Never Alcohol Use Standard Drinks/Week Comments Not Currently 0 (1 standard drink = 0.6 oz pur e alcohol) Depression Answer Date Recorded Patient Health Questionnaire-9 Score 0 06/10/2023 Housing Stability Answer Date Recorded What is your housing situation today? I have kirt garg 08/11/[address] you li ve. Do you have problems with any of the following? None of the above 08/11/2023 Food Insecurity Answer Date Recorded Within the past 12 months, y ou worried that your food would run out before you got money to buy more: Never True 08/11/2023 Within the past 12 months,th e food you bought just didn't last and you didn't have enough money to get more: Never True Transportation Answer Date Recorded In the past 12 months, has l ack of transportation kept you from medical appts, meetings, work or from getting things needed for daily living? No 08/11/2023 Utilities Answer Date Recorded In the past 12 months, has t he electric, gas, oil or water company threatened to shut off services in your home? No 08/11/2023 Depression Answer Date Recorded Patient Health Questionnaire-2 Score 0 06/10/2023 Comments Unknown Sex and Gender Information Value Date Recorded Sex Assigned at Female 08/26/2022 10:16 AM EDT Legal Sex Female 10:16 AM EDT Gender Identity Female 08/26/2022 10:16 AM EDT Sexual Orientation Straight 08/26/2022 10 :16 AM EDT documented as of this encounter Miscellaneous Notes * Telephone Encounter - Shay Jerry - 06/08/2024 1:08 PM EDT Tc from pt calling in regards to appt 06/10 stating she will not be able to make It. Pt is requesting to change it to a telephone visit or to reschedule. Please contact pt at [phone]. (Andorran Speaker) documented in this encounter Plan of Treatment Upcoming Encounters Date Type Department Care Team (Late st Contact Info) Description 12/21/2024 11:00 AM EST Office Visit [facility] MEDICINE [address] [place] [address] 01/06/2025 9:00 AM EDT Telemedicine [facility] [address] [place] [address] documented as of this encounter Visit Diagnoses Not on filedocumented in this encounter Additional Health Concerns Assessment Noted Time PHQ-9 Depression Total Score: 0 06/10/20 23 10:47 AM EDT documented as of this encounter Care Teams Electromechanical Inspector Relationship Specialty Start Date End Date Wojciech Li MD [address] [place] [address] PCP - General Internal Medicine 04/12/24 documented as of this encounter
--- OUTSIDE RECORDS SUMMARY | 2024-11-19 11:48 | XMS_ITS | Encounter Summary ---
Author Organization [employer] Address [address] [facility] 7t [place] [address] Care Team Providers Care Software Applications Architect Name Role Phone Wojciech Li MD Primary Care Provide r Wojciech Li MD Primary Care Provide r Wojciech Li MD Primary Care Provide r Encounter Details Date Type Department Care Team (Late st Contact Info) Description 12/09/2022 Orders Only [facility] MEDICINE [address] [place] [address] Brina Lorenz LPN Social History Tobacco Use Types Packs/Day Years Used Date Smoking Tobacco: Never Assessed Comments Unknown Sex and Gender Information Value [...] Encounters Date Type Department Care Team (Late Contact Info) Description 12/21/2024 11:00 AM EST Office Visit [address] [phone] 01/06/2025 9:00 AM EDT Telemedicine [address] [address] documented as of this encounter Visit Diagnoses Not on filedocumented in this encounter Care Teams Software Applications Architect Relationship Specialty Start Date End Date Wojciech Li MD [address] [place] [address] PCP - General Internal Medicine 06/01/14 03/04/24 Wojciech Li MD [address] [place] [address] PCP - General Internal Medicine 03/12/24 03/12/24 Wojciech Li MD [address] [place] [address] PCP - General Internal Medicine 04/12/24 documented as of this encounter
--- OUTSIDE RECORDS SUMMARY | 2024-11-19 11:48 | XMS_ITS | Encounter Summary ---
Author Organization [employer] Address [address] [facility] 7t [place] [address] Care Team Providers Care Transport Aircrewman Name Role Phone Wojciech Li MD Primary Care Provide r Wojciech Li MD Primary Care Provide r Wojciech Li MD Primary Care Provide r Encounter Details Date Type Department Care Team (Latest Contact Info) Description 07/19/[address] [facility] CONVERSIONS Dental, Provider, DDS Social History Tobacco Use Types Packs/Day Years [...] 11:00 AM EST Office Visit [facility] MEDICINE [address] [place] [phone] 01/06/2025 9:00 AM EDT Telemedicine [facility] MEDICINE [address] [place] [address] documented as of this encounter Visit Diagnoses Not on filedocumented in this encounter Care Teams Transport Aircrewman Relationship Specialty Start Date End Date Wojciech Li MD [address] [place] [address] PCP - General Internal Medicine 06/01/14 03/04/24 Wojceich Li MD [address] [place] [address] PCP - General Internal Medicine 03/12/24 03/12/24 Wojciech Li MD [address] [place] [address] PCP - General Internal Medicine 04/12/24 documented as of this encounter
--- OUTSIDE RECORDS SUMMARY | 2024-11-19 11:48 | XMS_ITS | Encounter Summary ---
Author Organization [employer] Address 75 [facility] 7t [place] [address] Care Team Providers Care Merchandise Flow Team Leader Name Role Phone Wojciech Li MD Primary Care Provide r Reason for Visit * Reason Comments Med Refill Encounter Details Date Type Department Care Team (Late st Contact Info) Description 05/23/2024 Refill [facility] MEDICINE [address] [place], [place] [phone] Dayanara Olmstead, [address] [place], [place] [phone] Chronic low back pain, unspecified back pain laterality, unspecified whether sciatica present; Chronic obstructive pulmonary disease, unspecified COPD type (CMS/HCC) Social History Tobacco Use Types Packs/Day Years Used Date Smoking Tobacco: Every Day Cigarettes Passive Smoke Exposure: Current Smokeless Tobacco: Never Alcohol Use Standard Drinks/Week Comments Not Currently 0 (1 standard drink = 0.6 oz pur e alcohol) Depression Answer Date Recorded Patient Health Questionnaire-9 Score 0 06/10/2023 Housing Stability Answer Date Recorded What is your housing situation today? I have kirtlazarus garg 08/11/[address] you [...] Description 12/21/2024 11:00 AM EST Office Visit [address] [address] 01/06/2025 9:00 AM EDT Telemedicine [address] [address] documented as of this encounter Visit Diagnoses Diagnosis Chronic low back pain, unspecified back pain laterality, unspecified whether sciatica present Chronic obstructive pulmonary disease, unspecified COPD type (CMS/HCC) documented in this encounter Additional Health Concerns Assessment Noted Time PHQ-9 Depression Total Score: 0 06/10/20 23 10:47 AM EDT documented as of this encounter Care Teams Merchandise Flow Team Leader Relationship Specialty Start Date End Date Wojciech Li MD [address] [place] [address] PCP - General Internal Medicine 04/12/24 documented as of this encounter
--- OUTSIDE RECORDS SUMMARY | 2024-11-19 11:48 | XMS_ITS | Encounter Summary ---
Author Organization [employer] Address [address] [facility] 7t [place] [address] Care Team Providers Care Radiation Control Health Physicist Name Role Phone Wojciech Li MD Primary Care Provide r Wojciech Li MD Primary Care Provide r Wojciech Li MD Primary Care Provide r Reason for Visit * Reason Onset Date Comments Medication Question 01/10/2023 Encounter Details Date Type Department Care Team ([facility] st Contact Info) Description 01/10/2023 Telephone [facility] [address] [place], [place] [phone] Wojciech Li MD [address] [place], [place] [phone] Medication Question Social History Tobacco Use Types Packs/Day Years [...] Miscellaneous Notes * Telephone Encounter - Sergio Hernandez - 01/10/2023 9:24 AM EDT Tc from Adriana with [facility] giving a requesting from pt in regards her pain medication for her back injury, pt is requesting Oxycodone to be switch for something else. If any questions please contact Adriana at [phone] documented in this encounter Plan of Treatment Upcoming Encounters Date Type Department Care Team (Late st Contact Info) Description 12/21/2024 11:00 AM EST Office Visit [address] [address] 01/06/2025 9:00 AM EDT Telemedicine [address] [address] documented as of this encounter Visit Diagnoses Not on filedocumented in this encounter Care Teams Radiation Control Health Physicist Relationship Specialty Start Date End Date Wojciech Li MD [address] [place] [address] PCP - General Internal Medicine 06/01/14 03/04/24 Wojciech Li MD [address] [place] [address] PCP - General Internal Medicine 03/12/24 03/12/24 Wojciech Li MD [address] [place] [address] PCP - General Internal Medicine 04/12/24 documented as of this encounter
--- OUTSIDE RECORDS SUMMARY | 2024-11-19 11:48 | XMS_ITS | Encounter Summary ---
Author Organization [employer] Address 75 [facility] 7t [place] [address] Care Team Providers Care Tape Rules Printing Machine Operator Name Role Phone Wojciech Li MD Primary Care Provide r Wojciech Li MD Primary Care Provide r Wojciech Li MD Primary Care Provide r Encounter Details Date Type Department Care Team (Late st Contact Info) Description 11/04/2022 Orders Only [facility] MED & PEDS [address] [place] [address] Dayanara Jiménez LPN Social History Tobacco Use [...] Description 12/21/2024 11:00 AM EST Office Visit [facility] MEDICINE [address] [place] [address] 01/06/2025 9:00 AM EDT Telemedicine [facility] MEDICINE [address] [place] [address] documented as of this encounter Visit Diagnoses Not on filedocumented in this encounter Care Teams Tape Rules Printing Machine Operator Relationship Specialty Start Date End Date Wojciech Li MD [address] [place] [address] PCP - General Internal Medicine 06/01/14 03/04/24 Wojciech Li MD [address] [place] [address] PCP - General Internal Medicine 03/12/24 03/12/24 Wojciech Li MD [address] [place] [address] PCP - General Internal Medicine 04/12/24 documented as of this encounter
--- OUTSIDE RECORDS SUMMARY | 2024-11-19 11:48 | XMS_ITS | Encounter Summary ---
Author Organization [employer] Address [address] [facility] [address] 7t [place] [address] Care Team Providers Care Janitorial Assistant Name Role Phone Wojciech Li MD Primary Care Provide r Reason for Visit * Reason Comments Med Refill Encounter Details Date Type Department Care Team (Late st Contact Info) Description 08/04/2024 Refill [facility] MEDICINE [address] [place], [place] [phone] Wojciech Li MD [address] [place], [place] [phone] Seasonal allergies Social History Tobacco Use Types Packs/Day Years [...] Patient Health Questionnaire-2 Score 0 06/10/2023 Comments No Sex and Gender Information Value [...] Description 12/21/2024 11:00 AM EST Office Visit [address] [address] 01/06/2025 9:00 AM EDT Telemedicine [address] [address] documented as of this encounter Visit Diagnoses Diagnosis Seasonal allergies Allergic rhinitis, cause unspecified documented in this encounter Additional Health Concerns Assessment Noted Time PHQ-9 Depression Total Score: 0 06/10/20 23 10:47 AM EDT documented as of this encounter Care Teams Janitorial Assistant Relationship Specialty Start Date End Date Wojciech Li MD [address] [place] [address] PCP - General Internal Medicine 04/12/24 documented as of this encounter
--- OUTSIDE RECORDS SUMMARY | 2024-11-19 11:49 | XMS_ITS | Encounter Summary ---
Author Organization [employer] Address [address] [facility] [address] [place] [address] Care Team Providers Care Flask Fitter Name Role Phone Wojciech Li MD Primary Care Provide r Encounter Details Date Type Department Care Team ([facility] st Contact Info) Description 11/17/2024 Telephone [facility] [address] [place], [place] [phone] Wojciech Li MD 230 [place], [place] [phone] Social History Tobacco Use Types Packs/Day Years [...] with others, in a hotel, in a fpc, living outside on the street, on a [...] 12/21/2024 11:00 AM EST Office Visit [facility] [address] [place] [address] 01/06/2025 9:00 AM EDT Telemedicine [facility] [address] [place] [phone] documented as of this encounter Visit Diagnoses Not on filedocumented in this encounter Additional Health Concerns Assessment Noted Time PHQ-9 Depression Total Score: 9 09/14/20 24 1:06 PM EST documented as of this encounter Care Teams Flask Fitter Relationship Specialty Start Date End Date Wojciech Li MD [address] [place] [address] PCP - General Internal Medicine 04/12/24 documented as of this encounter
--- OUTSIDE RECORDS SUMMARY | 2024-11-19 11:49 | XMS_ITS | Encounter Summary ---
Author Organization [employer] Address 75 [facility] 7t [place] [address] Care Team Providers Care Music Professor Name Role Phone Wojciech Li MD Primary Care Provide r Reason for Visit * Reason Onset Date Comments Referral 11/12/2024 Encounter Details Date Type Department Care Team ([facility] st Contact Info) Description 11/12/2024 Telephone [facility] [address] [place] [address] Wojciech Li MD 230 [place] [address] Referral Social History Tobacco Use Types Packs/Day Years [...] Telephone Encounter - Lu Paulino [place] - 11/12/2024 9:46 AM EST Received a returned fax from [facility] expressing that they have tried calling the pt multiple times to schedule with no response. LB documented in this encounter Plan of Treatment Upcoming Encounters Date Type Department Care Team (Late st Contact Info) Description 12/21/2024 11:00 AM EST Office Visit [address] [address] 01/06/2025 9:00 AM EDT Telemedicine [address] [address] documented as of this encounter Visit Diagnoses Not on filedocumented in this encounter Additional Health Concerns Assessment Noted Time PHQ-9 Depression Total Score: 9 09/14/20 24 1:06 PM EST documented as of this encounter Care Teams Music Professor Relationship Specialty Start Date End Date Wojciech Li MD 230 [place] [address] PCP - General Internal Medicine 04/12/24 documented as of this encounter
--- OUTSIDE RECORDS SUMMARY | 2024-11-19 11:49 | XMS_ITS | Encounter Summary ---
Author Organization [employer] Address 75 [facility] 7t [place] [address] Care Team Providers Care Strand Forming Machine Operator Name Role Phone Wojciech Li MD Primary Care Provide r Reason for Referral * Imaging (Routine) - Authorized Specialty Diagnoses / Procedures Referred By Contac t Referred To Contact Radiology Diagnoses Chronic midline low back pain without sciatica Procedures BD DEXA Axial Wojciech Li MD 230 [place] [address] Phone: tel: fax: [facility] [address] [place] [address] Phone: tel: fax: Referral ID Status Reason Start Date Expiration Date V isits Requested Visits Authorized [id number] Authorized 11/16/2024 11/16/2025 1 1 * Consultation (Routine) - Authorized Specialty Diagnoses / Procedures Referred By Contac t Referred To Contact Optometry Diagnoses Type 2 diabetes mellitus without complication, unspecified whether superintendent terminal insulin use ([facility]) Wojciech Li MD [address] [place] [address] Phone: tel: fax: [facility]ET[facility] [address] [place] [address] Phone: tel: fax: Referral ID Status Reason Start Date Expiration Date Visits Requested Visits Authorized [id number] Authorized Consult and Treat 11/16/2024 11/16/2025 1 1 Encounter Details Date Type Department Care Team (Late st Contact Info) Description 11/16/2024 10:30 AM EST Office Visit [facility] [address] [place] [address] Wojciech Li MD 230 [place] [address] Type 2 diabetes mellitus without complication, with long-term current use of insulin (CMS/HCC) (Primary Dx); Type 2 diabetes mellitus without complication, unspecified whether superintendent terminal insulin use (CMS/HCC); Intractable left heel pain; Essential hypertension; Chronic midline low back pain without sciatica; Bipolar affective disorder, currently depressed, moderate (CMS/HCC); Physical exam, annual; Obesity (BMI 30-39.9); Dietary counseling; Exercise counseling Social History Tobacco Use Types Packs/Day Years [...] with others, in a hotel, in a mcfp, living outside on the street, on a [...] AM EDT documented as of this encounter Last Filed Vital Signs Vital Sign Reading [...] Mass Index 31.65 11/16/2024 11:06 AM EST documented in this encounter Progress Notes * Wojciech Carver MD - 11/16/2024 10:30 AM EST ISAIAH Asif is a 54 y.o. female who presents for No chief complaint on file.. Pt here for a routine exam Diabetes She presents for her follow-up diabetic visit. She has type 2 diabetes mellitus. Pertinent negatives for hypoglycemia include no dizziness or headaches. Pertinent negatives for diabetes include no chest pain and no fatigue. Review of Systems Constitutional: Negative for appetite change, fatigue and fever. HENT: Negative for ear pain, hearing loss and sore throat. Eyes: Negative for pain and visual disturbance. Respiratory: Negative for cough and shortness of breath. Cardiovascular: Negative for chest pain and palpitations. Gastrointestinal: Negative for abdominal pain, nausea and vomiting. Genitourinary: Negative for dysuria. Skin: Negative for rash. Neurological: Negative for dizziness and headaches. Psychiatric/Behavioral: Negative for sleep disturbance. No Known Allergies OBJECTIVE Vitals: 11/16/24 1106 11/16/24 1107 BP: (!) 141/87 137/82 BP Location: Left arm Left arm Patient Position: Sitting Sitting BP Cuff Size: Adult Adult Pulse: 98 95 Resp: 20 Temp: 97.5 ??F (36.4 ??C) TempSrc: Temporal SpO2: 98% Weight: 184 lb 6.4 oz (83.6 kg) Height: 5' 4 (1.626 m) Physical Exam Vitals reviewed. Constitutional: General: She is awake. Appearance: Normal appearance. She is well-developed. HENT: Head: Normocephalic and atraumatic. Right Ear: Tympanic membrane, ear canal and external ear normal. Left Ear: Tympanic membrane, ear canal and external ear normal. Nose: Nose normal. Mouth/Throat: Mouth: Mucous membranes are moist. Pharynx: Oropharynx is clear. Eyes: Extraocular Movements: Extraocular movements intact. Conjunctiva/sclera: Conjunctivae normal. Pupils: Pupils are equal, round, and reactive to light. Cardiovascular: Rate and Rhythm: Normal rate and regular rhythm. Pulses: Normal pulses. Heart sounds: Normal heart sounds. Pulmonary: Effort: Pulmonary effort is normal. Breath sounds: Normal breath sounds. Chest: Breasts: Right: Normal. No swelling, bleeding, inverted nipple, mass or nipple discharge. Left: Normal. No swelling, bleeding, inverted nipple, mass or nipple discharge. Abdominal: General: Bowel sounds are normal. Palpations: Abdomen is soft. Musculoskeletal: General: Normal range of motion. Cervical back: Normal range of motion and neck supple. Lymphadenopathy: Upper Body: Right upper body: No supraclavicular or axillary adenopathy. Left upper body: No supraclavicular or axillary adenopathy. Skin: General: Skin is warm. Capillary Refill: Capillary refill takes less than 2 seconds. Neurological: General: No focal deficit present. Mental Status: She is alert and oriented to person, place, and time. Mental status is at baseline. Deep Tendon Reflexes: Reflexes are normal and symmetric. Psychiatric: Mood and Affect: Mood normal. Assessment/Plan Problem List Items Addressed This Visit Type 2 diabetes mellitus, with long-term current use of insulin ([facility]) - Primary Pt here for a follow up She is on a regimen of: Amaryl 1 mg po daily, Lantus 20 units sc q pm and Trulicity 1.5 once a week. Metformin was discontinued during a previous hospitalziation due to Lactic Acidosis Hgb A1c 09/14/2024: 7.0 Eye exam was last done on: by Dr. Tyra [place] [facility] [employer] 07/31/2018 Microalbumin checked on: 07/15/2023was 49.Pt is [...] check your feet on a daily basis. Intractable left heel pain Referred to Podiatry, scheduled for 12/06/2024 Essential hypertension Relevant Medications Blood Pressure Monitoring (Omron 3 Series BP Monitor) device Chronic low back pain Patient here for follow up regarding her [...] Will refer back Pt had left for [place] and then came back EMG showed: IMPRESSION: 1. Probably chronic left lower lumbar radiculopathy. Due to limited EMG, acuteness could not be determined. 2. Mild sensory and motor peripheral neuropathy. Previously I had been Percocet 1 tab po q 8 hrs prn. When she came back I switched her to Oxycodoneshe has a narcotic contract with us, MRI of LS spine 10/2024 showed: IMPRESSION: Central and right subarticular disc herniation L5-S1 likely encroaching right S1 nerve root. Consider calcium metabolic disorder/osteopenia versus osteoporosis Pt was referred to Dr Díaz Neurosurgeon Continue Oxycodone and Acetaminophen Relevant Orders BD DEXA Axial Bipolar affective disorder, currently depressed, moderate (CMS/HCC) Here for f/u Pt remains under the care of [facility] in [facility]. Her psychiatrist is Dr Goyal ([phone]). She had a previous admission this year at [facility] for a psychiatric admission due to [...] and knows to use them if needed. Physical exam, annual Physical exam today, aside from her chronic back pain is otherwise unremarkable Obesity (BMI 30-39.9) Patient has been counseled and educated about diet and exercise. Personal goal of weight loss discussedPatient has comorbidity of: DM Dietary Recommendations: Fruits, vegetables, whole grains, protein foods, and fat-free or low-fat dairy products are healthychoices. Eat different types of protein foods in your diet. This can include seafood, lean meats, poultry, beans, peas, lentils, nuts, seeds, soy products, and eggs. Limit foods and beverages higher in added sugars, saturated fat, and sodium. Exercise Recommendations: At least 150 minutes of moderate-intensity physical activity per week, or an equivalent combinationof moderate- and vigorous-intensity activity Other Visit Diagnoses Type 2 diabetes mellitus without complication, unspecified whether superintendent terminal insulin use (CMS/[facility]) Relevant Orders POCT Glucose (Completed) Referral to [facility] Eye Care Dietary counseling Exercise counseling documented in this encounter Miscellaneous Notes * Assessment & Plan Note - Wojciech Carver MD - 11/16/2024 12:31 PM EST Associated Problem(s): Physical exam, annual Physical exam today, aside from her chronic back pain is otherwise unremarkable * Assessment & Plan Note - Wojciech Carver MD - 11/16/2024 11:23 AM EST Associated Problem(s): Obesity (BMI 30-39.9) Patient has been counseled and educated about diet and exercise. Personal goal of weight loss discussedPatient has comorbidity of: DM Dietary Recommendations: Fruits, vegetables, whole grains, protein foods, and fat-free or low-fat dairy products are healthychoices. Eat different types of protein foods in your diet. This can include seafood, lean meats, poultry, beans, peas, lentils, nuts, seeds, soy products, and eggs. Limit foods and beverages higher in added sugars, saturated fat, and sodium. Exercise Recommendations: At least 150 minutes of moderate-intensity physical activity per week, or an equivalent combinationof moderate- and vigorous-intensity activity * Assessment & Plan Note - Wojciech Carver MD - 11/16/2024 11:22 AM EST Associated Problem(s): Bipolar affective disorder, currently depressed, moderate (CMS/HCC) Here for f/u Pt remains under the care of [facility] in [facility]. Her psychiatrist is Dr Goyal ([phone]). She had a previous admission this year at [facility] for a psychiatric admission due to [...] and knows to use them if needed. * Assessment & Plan Note - Wojciech Carver MD - 11/16/2024 11:21 AM EST Associated Problem(s): Type 2 diabetes mellitus, with long-term current use of insulin ([facility]) Pt here for a follow up She is on a regimen of: Amaryl 1 mg po daily, Lantus 20 units sc q pm and Trulicity 1.5 once a week. Metformin was discontinued during a previous hospitalziation due to Lactic Acidosis Hgb A1c 09/14/2024: 7.0 Eye exam was last done on: by Dr. Tyra [place] [facility] [employer] 07/31/2018 Microalbumin checked on: 07/15/2023was 49.Pt is [...] check your feet on a daily basis. * Assessment & Plan Note - Wojciech Carver MD - 11/16/2024 11:20 AM EST Associated Problem(s): Chronic low back pain Patient here for follow up regarding her [...] Will refer back Pt had left for [place] and then came back EMG showed: IMPRESSION: 1. Probably chronic left lower lumbar radiculopathy. Due to limited EMG, acuteness could not be determined. 2. Mild sensory and motor peripheral neuropathy. Previously I had been Percocet 1 tab po q 8 hrs prn. When she came back I switched her to Oxycodoneshe has a narcotic contract with us, MRI of LS spine 10/2024 showed: IMPRESSION: Central and right subarticular disc herniation L5-S1 likely encroaching right S1 nerve root. Consider calcium metabolic disorder/osteopenia versus osteoporosis Pt was referred to Dr Díaz Neurosurgeon Continue Oxycodone and Acetaminophen * Assessment & Plan Note - Wojciech Carver MD - 11/16/2024 11:14 AM EST Associated Problem(s): Intractable left heel pain Referred to Podiatry, scheduled for 12/06/2024 documented in this encounter Plan of Treatment Upcoming Encounters Date Type Department Care Team (Late st Contact Info) Description 12/21/2024 11:00 AM EST Office Visit [facility] [address] [place] [phone] 01/06/2025 9:00 AM EDT Telemedicine [facility] [address] [place] [address] Scheduled Orders Name Type Priority Associated Diagnoses Orde r Schedule BD DEXA Axial Imaging Routine Chronic midline low back pain without sciatica Expected: 11/16/2024, Expires: 11/16/2025 Scheduled Referrals Name Type Priority Associated Diagnoses Orde r Schedule Referral to [facility] Care Outpatient Referral Routine Type 2 diabetes mellitus without complication, unspecified whether superintendent terminal insulin use ([facility]) Expected: 11/16/2024 (Approximate), Expires: 11/16/2025 documented as of this encounter Procedures Procedure Name Priority Date/Time Associated Diagnosis Comments POCT GLUCOSE Routine 11/16/2024 11:08 AM EST Type 2 diabetes mellitus without complication, unspecified whether superintendent terminal insulin use ([facility]) documented in this encounter Results * POCT Glucose (11/16/2024 11:08 AM EST) Glucose Blood, POC 86 60 - 200 mg/dL QC Media Lot # [id number] Lot# Expiration Date Blood Capillary blood specimen / Unknown 11/16/2024 11:08 AM EST Wojciech Carver MD POINT OF CARE TEST EN TER/EDIT ORDERABLES Final Result documented in this encounter Visit Diagnoses Diagnosis Type 2 diabetes mellitus without complication, unspecified whether group home insulin use (CMS/HCC) Intractable left heel pain Essential hypertension Unspecified essential hypertension Chronic midline low back pain without sciatica Bipolar affective disorder, currently depressed, moderate (CMS/HCC) Bipolar I disorder, most recent episode (or current) depressed, moderate Physical exam, annual Obesity (BMI 30-39.9) Dietary counseling Dietary surveillance and counseling Exercise counseling documented in this encounter Additional Health Concerns Assessment Noted Time PHQ-9 Depression Total Score: 9 09/14/20 24 1:06 PM EST documented as of this encounter Care Teams Strand Forming Machine Operator Relationship Specialty Start Date End Date Wojciech Li MD [address] [place] [id number] PCP - General Internal Medicine 04/12/24 documented as of this encounter
--- OUTSIDE RECORDS SUMMARY | 2024-11-19 11:49 | XMS_ITS | Encounter Summary ---
Author Organization [employer] Address 75 [facility] 7t [place] [address] Care Team Providers Care Etl Architect Name Role Phone Wojciech Li MD Primary Care Provide r Reason for Visit * Reason Comments Med Refill Encounter Details Date Type Department Care Team (Late st Contact Info) Description 05/18/2024 Refill [facility] [address] [place], [place] [phone] Wojciech Li MD [address] [place], [place] [phone] Type 2 diabetes mellitus without complication, unspecified whether intermediate insulin use ([facility]); Essential hypertension Social History Tobacco Use Types Packs/Day Years [...] Description 12/21/2024 11:00 AM EST Office Visit [address] [address] 01/06/2025 9:00 AM EDT Telemedicine [address] [address] documented as of this encounter Visit Diagnoses Diagnosis Type 2 diabetes mellitus without complication, unspecified whether ocean transportation intermediary insulin use ([facility]) Essential hypertension Unspecified essential hypertension documented in this encounter Additional Health Concerns Assessment Noted Time PHQ-9 Depression Total Score: 0 06/10/20 23 10:47 AM EDT documented as of this encounter Care Teams Etl Architect Relationship Specialty Start Date End Date Wojciech Li MD [address] [place] [address] PCP - General Internal Medicine 04/12/24 documented as of this encounter
--- OUTSIDE RECORDS SUMMARY | 2024-11-19 11:49 | XMS_ITS | Encounter Summary ---
Author Organization [employer] Address 75 [facility] 7t [place] [address] Care Team Providers Care Warehouse Distribution Specialist Name Role Phone Wojciech Li MD Primary Care Provide r Encounter Details Date Type Department Care Team ([facility] st Contact Info) Description 04/13/2024 Telephone [facility] [address] [place] [address] Wojciech Li MD [address] [place] [address] Social History Tobacco Use Types Packs/Day Years [...] Access Q2 Not on file 09/14/2024 Comments Unknown Sex and Gender Information Value [...] Description 12/21/2024 11:00 AM EST Office Visit [facility] [address] [place] [address] 01/06/2025 9:00 AM EDT Telemedicine [facility] [address] [place] [address] documented as of this encounter Visit Diagnoses Not on filedocumented in this encounter Additional Health Concerns Assessment Noted Time PHQ-9 Depression Total Score: 0 06/10/20 23 10:47 AM EDT documented as of this encounter Care Teams Warehouse Distribution Specialist Relationship Specialty Start Date End Date Wojciech Li MD [address] [place] [phone] PCP - General Internal Medicine 04/12/24 documented as of this encounter
--- OUTSIDE RECORDS SUMMARY | 2024-11-19 11:49 | XMS_ITS | Clinical Summary ---
Author Organization [facility] Address [address] [place] [address] Phone Care Team Providers Care Seat Joiner Name Role Phone Dayanara Olmstead DO Primary Care Provider [phone] Allergies No known active allergies Medications Medication Sig Dispensed Refills Start Date End Date Status albuterol 2.5 mg /3 mL (0.083 %) nebulizer solution Take 1 Vial by nebulization every 4 hours as needed. Active albuterol sulfate (ProAir RespiClick) 90 mcg/actuation aerosol powdr breath activated Inhale into the lungs 4 times daily. Active amitriptyline (ELAVIL) 75 mg tablet 1 TABLET AT BEDTIME PRN Active baclofen (LIORESAL) 10 mg tablet Take 1 Tablet by mouth 3 times daily. Active citalopram (CeleXA) 20 mg tablet 3 TABLET DAILY Active cyclobenzaprine (FLEXERIL) 10 mg tablet 1 TABLET 3 TIMES DAILY PRN Active diclofenac (VOLTAREN) 1 % topical gel Apply topically 3 times daily. Active dicyclomine (BENTYL) 20 mg tablet 1 TABLET Q 8 HRS PRN Acti ve fluticasone furoate (Arnuity Ellipta) 200 mcg/actuation blister with device inhaler Inhale into the lungs daily. Active gabapentin (NEURONTIN) 100 mg capsule Take 1 capsule (100 mg total) by mouth 1 (one) time each day. Active insulin glargine (LANTUS) 100 unit/mL injection Inject 100 Units into the skin daily. Active naproxen (NAPROSYN) 500 mg tablet Take 1 Tablet by mouth 2 times daily (with meals). Active polyethylene glycol 3350 (MIRALAX ORAL) 1 capful (17g) - 2 times a day - mixed with 6-8oz water 09/27/2008 Active omeprazole (PriLOSEC) [address] capsule 20 mg po BID (1/2 hour befor eating) 09/27/2008 Active propranoloL (INDERAL) 40 mg tablet Take 1 tablet (40 mg total) by mouth 2 (two) times a day. Active simethicone (MYLICON) 80 mg chewable tablet 1 -2 TABLETS PO AFTER Q MEAL Active topiramate (Topamax) 25 mg tablet 1 TABLETS TWICE DAILY Act silver traZODone (DESYREL) 50 mg tablet Take 1 Tablet by mouth at bedtime. Active Active Problems Problem Noted Date Diagnosed Date Allergic rhinitis 06/25/2024 Anemia 06/25/2024 Bipolar affective disorder, currently depressed, moderate 06/25/2024 Chronic low back pain 06/25/2024 Chronic pain of both knees 06/25/2024 Chronic tension type headache 06/25/2024 COPD (chronic obstructive pulmonary disease) Cyst of ovary 06/25/2024 Depressive disorder 06/25/2024 HTN (hypertension) 06/25/2024 IBS (irritable bowel syndrome) 06/25/2024 Inflammatory pain of left heel 06/25/2024 Lower abdominal pain 06/25/2024 Mixed hyperlipidemia 06/25/2024 Moderate persistent asthma 06/25/2024 Nonintractable chronic migraine 06/25/2024 Obesity 06/25/2024 Osteoarthritis 06/25/2024 Periodic limb movement disorder 06/25/2024 Shoulder pain 06/25/2024 T2DM (type 2 diabetes mellitus) 06/25/2024 Urinary incontinence 06/25/2024 Social History Tobacco Use Types Packs/Day Years Used Date Smoking Tobacco: Never Assessed Sex and Gender Information Value Date Recorded Sex Assigned at Not on file Gender Identity Not on file Sexual Orientation Not on file Plan of Treatment Upcoming Encounters Date Type Department Care Team (Late st Contact Info) Description 12/06/2024 3:15 PM EST Office Visit Orthopedic Surgery - [place] [address] [phone] Herman Oglesby, DPM [address] [address] Health Maintenance Due Date Last Done Comments Breast Cancer Screening 1970 Diabetes: Annual GFR (Glomer ular Filtration Rate) 1970 Pneumococcal Vaccine: Pediat rics (0 to 5 Years) and At-Risk Patients (6 to 64 Years) (1 of 2 - PCV) 1976 Diabetes: Annual Foot Exam 1980 Diabetes: Annual Retina Eye Exam 1980 DTaP,Tdap,and Td Vaccines (1 - Tdap) 1989 Hepatitis B Vaccines (1 of 3 - 19+ 3-dose series) 1989 Cervical Cancer Screening: P ap Smear 1991 Zoster Vaccines (1 of 2) 2020 Cholesterol Screening (Lipid Panel) 10/10/2022 Colorectal Cancer Screening: Colonoscopy 10/10/2022 Depression Screening 10/10/2022 HIV Screening 10/10/2022 Hepatitis C Screening 10/10/2022 Social Influencers of Health Screening 10/10/2022 COVID-19 Vaccine (1 - 2023-2 5 season) 2024 Influenza Vaccine (#1) 2024 Diabetes: Annual Urine Albumin-Creatinine Ratio (uACR) 08/09/2024 Diabetes: Blood Sugar Contro l Test (HGBA1C) 08/09/2024 Hypertension/CHF/CAD Annual BMP Blood Test 08/09/2024 HIB Vaccines Aged Out No longer eligi ble based on patient's age to complete this topic HPV Vaccines Aged Out No longer eligi ble based on patient's age to complete this topic Hepatitis A Vaccines Aged Out No long er eligible based on patient's age to complete this topic IPV Vaccines Aged Out No longer eligi ble based on patient's age to complete this topic MMR Vaccines Aged Out No longer eligi ble based on patient's age to complete this topic Meningococcal ACWY Vaccine Aged Out N o longer eligible based on patient's age to complete this topic RSV Immunization Patients Un richie 20 months Aged Out No longer eligible b ased on patient's age to complete this topic Varicella Vaccines Aged Out No longer eligible based on patient's age to complete this topic Care Teams Seat Joiner Relationship Specialty Start Date End Date Dayanara Olmstead DO [address] [place], [place] PCP - General 04/02/24
--- OUTSIDE RECORDS SUMMARY | 2024-11-19 11:49 | XMS_ITS | Encounter Summary ---
Author Organization [employer] Address [address] [facility] [address]t [place] [address] Care Team Providers Care Medical Transport Specialist Name Role Phone Wojciech Li MD Primary Care Provide r Reason for Referral * Consultation (Routine) - Authorized Specialty Diagnoses / Procedures Referred By Contac t Referred To Contact Neurosurgery Diagnoses Chronic right-sided low back pain without sciatica Wojciech Li MD [address] [place] [address] Phone: tel: fax: [facility] Referral ID Status Reason Start Date Expiration Date Visits Requested Visits Authorized [id number] Authorized Specialty Services Required 11/10/2024 11/10/2025 6 6 Encounter Details Date Type Department Care Team (Late st Contact Info) Description 11/09/2024 Orders Only [facility] [address] [place], [place] [phone] Wojciech Li MD [address] [place], [place] [phone] Chronic right-sided low back pain without sciatica (Primary Dx) Social History Tobacco Use Types Packs/Day Years [...] with others, in a hotel, in a fci, living outside on the street, on a [...] Description 12/21/2024 11:00 AM EST Office Visit [facility] [address] [place] [address] 01/06/2025 9:00 AM EDT Telemedicine [facility] [address] [place] [address] Scheduled Referrals Name Type Priority Associated Diagnoses Order Schedule Referral to Neurosurgery Outpatient Referral Routine Chronic right-sided low back pain without sciatica Expected: 11/09/2024 (Approximate), Expires: 11/09/2025 documented as of this encounter Visit Diagnoses Diagnosis Chronic right-sided low back pain without sciatica- Primary documented in this encounter Additional Health Concerns Assessment Noted Time PHQ-9 Depression Total Score: 9 09/14/20 24 1:06 PM EST documented as of this encounter Care Teams Medical Transport Specialist Relationship Specialty Start Date End Date Wojciech Li MD [address] [place] [address] PCP - General Internal Medicine 04/12/24 documented as of this encounter
--- OUTSIDE RECORDS SUMMARY | 2024-11-19 11:49 | XMS_ITS | Encounter Summary ---
Author Organization [employer] Address [address] [facility] [address] [place] [address] Care Team Providers Care Accounting Machine Servicer Name Role Phone Wojciech Li MD Primary Care Provide r Encounter Details Date Type Department Care Team (Latest Contact Info) Description 11/16/2024 Travel Social History Tobacco Use Types Packs/Day [...] 12/21/2024 11:00 AM EST Office Visit [address] [address] 01/06/2025 9:00 AM EDT Telemedicine [address] [address] documented as of this encounter Visit Diagnoses Not on filedocumented in this encounter Additional Health Concerns Assessment Noted Time PHQ-9 Depression Total Score: 9 09/14/20 24 1:06 PM EST documented as of this encounter Care Teams Accounting Machine Servicer Relationship Specialty Start Date End Date Wojciech Li MD [address] [place] [phone] PCP - General Internal Medicine 04/12/24 documented as of this encounter
--- OUTSIDE RECORDS SUMMARY | 2024-11-19 11:49 | XMS_ITS | Encounter Summary ---
Author Organization [employer] Address [address] [facility] [address] [place] [address] Care Team Providers Care Residential Subcontractor Name Role Phone Wojciech Li MD Primary Care Provide r Reason for Visit * Reason Onset Date Comments New Patient 04/12/2024 Encounter Details Date Type Department Care Team ([facility] st Contact Info) Description 04/12/2024 Telephone [facility] [address] [place] [address] Wojciech Li MD [address] [place], [place] [phone] New Patient Social History Tobacco Use Types Packs/Day Years [...] * Telephone Encounter - Shay Edwards - 04/12/2024 1:10 PM EDT TC from caller requesting NEW PATIENT visit. Insurance name: [employer] Demographic information updated documented in this encounter Plan of Treatment Upcoming Encounters Date Type Department Care Team (Late st Contact Info) Description 12/21/2024 11:00 AM EST Office Visit [facility] [address] [place] [address] 01/06/2025 9:00 AM EDT Telemedicine [facility] [address] [place] [address] documented as of this encounter Visit Diagnoses Not on filedocumented in this encounter Additional Health Concerns Assessment Noted Time PHQ-9 Depression Total Score: 0 06/10/20 23 10:47 AM EDT documented as of this encounter Care Teams Residential Subcontractor Relationship Specialty Start Date End Date Wojciech Li MD [address] [place] [phone] PCP - General Internal Medicine 04/12/24 documented as of this encounter
--- OUTSIDE RECORDS SUMMARY | 2024-11-19 11:49 | XMS_ITS | Encounter Summary ---
Author Organization [employer] Address [address] [facility] [address] [place] [address] Care Team Providers Care Surface Logging Systems Logger Name Role Phone Wojciech Li MD Primary Care Provide r Reason for Visit * Reason Onset Date Comments Results 11/09/2024 Encounter Details Date Type Department Care Team ([facility] st Contact Info) Description 11/09/2024 Telephone [facility] [address] [place] [address] Kaylee Hogan RN Results Social History Tobacco Use Types Packs/Day Years [...] encounter Miscellaneous Notes * Telephone Encounter - Kaylee Hogan RN - 11/09/2024 4:04 PM EST TC placed to pt with S [employer] crm developer Jhoan #[id number] to inform and advise of most recent MR Lumbar spine results below. Pt agreeable to these results and informed of a referral placed to neuro for further evaluation. 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 I have placed a referral to neurosurgeon Dr. Díaz for evaluation documented in this encounter Plan of Treatment Upcoming Encounters Date Type Department Care Team (Late st Contact Info) Description 12/21/2024 11:00 AM EST Office Visit [facility] [address] [place] [phone] 01/06/2025 9:00 AM EDT Telemedicine [facility] [address] [place] [address] documented as of this encounter Visit Diagnoses Not on filedocumented in this encounter Additional Health Concerns Assessment Noted Time PHQ-9 Depression Total Score: 9 09/14/20 24 1:06 PM EST documented as of this encounter Care Teams Surface Logging Systems Logger Relationship Specialty Start Date End Date Wojciech Li MD [address] [place] [address] PCP - General Internal Medicine 04/12/24 documented as of this encounter
--- OUTSIDE RECORDS SUMMARY | 2024-11-19 11:50 | XMS_ITS | Encounter Summary ---
Author Organization [employer] Address [address] [facility] [address] [place] [address] Care Team Providers Care Business Coordinator Name Role Phone Wojciech Li MD Primary Care Provide r Wojciech Li MD Primary Care Provide r Wojciech Li MD Primary Care Provide r Reason for Visit * Reason Comments Med Refill Encounter Details Date Type Department Care Team (Late st Contact Info) Description 09/15/2023 Refill [facility] [address] [place], [place] [phone] Wojciech Li MD [address] [place], [place] [phone] Type 2 diabetes mellitus without complication, unspecified whether intermediate insulin use ([facility]) Social History Tobacco Use Types Packs/Day Years [...] Description 12/21/2024 11:00 AM EST Office Visit [facility] [address] [place] [address] 01/06/2025 9:00 AM EDT Telemedicine [address] [address] documented as of this encounter Visit Diagnoses Diagnosis Type 2 diabetes mellitus without complication, unspecified whether long term care pharmacist insulin use ([facility]) documented in this encounter Additional Health Concerns Assessment Noted Time PHQ-9 Depression Total Score: 0 06/10/20 23 10:47 AM EDT documented as of this encounter Care Teams Business Coordinator Relationship Specialty Start Date End Date Wojciech Li MD [address] [place] [address] PCP - General Internal Medicine 06/01/14 03/04/24 Wojciech Li MD [address] [place] [phone] PCP - General Internal Medicine 03/12/24 03/12/24 Wojciech Li MD [address] [place] [address] PCP - General Internal Medicine 04/12/24 documented as of this encounter
--- OUTSIDE RECORDS SUMMARY | 2024-11-19 11:50 | XMS_ITS | Encounter Summary ---
Author Organization [employer] Address [address] [facility] [address] 7[address] [place] [address] Care Team Providers Care Oil Burner Journeyman Name Role Phone Wojciech Li MD Primary Care Provide r Wojciech Li MD Primary Care Provide r Wojciech Li MD Primary Care Provide r Encounter Details Date Type Department Care Team (Late st Contact Info) Description 02/17/2024 Orders Only [facility] [address] [place] [address] Provider, MD Juan Social History Tobacco Use Types Packs/Day Years [...] Description 12/21/2024 11:00 AM EST Office Visit [address] [address] 01/06/2025 9:00 AM EDT Telemedicine [address] [address] documented as of this encounter Procedures Procedure Name Priority Date/Time Associated Diagnosis Comments HM COLONOSCOPY Routine 07/11/2021 10:40 AM EDT documented in this encounter Results * Hm Colonoscopy (07/11/2021 10:40 AM EDT) us Historical Provider HEALTH MAINTENANCE Final Result documented in this encounter Visit Diagnoses Not on filedocumented in this encounter Additional Health Concerns Assessment Noted Time PHQ-9 Depression Total Score: 0 06/10/20 23 10:47 AM EDT documented as of this encounter Care Teams Oil Burner Journeyman Relationship Specialty Start Date End Date Wojciech Li MD [address] [place] [address] PCP - General Internal Medicine 06/01/14 03/04/24 Wojciech Li MD [address] [place] [address] PCP - General Internal Medicine 03/12/24 03/12/24 Wojciech Li MD [address] [place] [address] PCP - General Internal Medicine 04/12/24 documented as of this encounter
--- OUTSIDE RECORDS SUMMARY | 2024-11-19 11:50 | XMS_ITS | Encounter Summary ---
Author Organization [employer] Address [address] [facility] 7t [place] [address] Care Team Providers Care Greek Professor Name Role Phone Wojciech Li MD Primary Care Provide r Wojciech Li MD Primary Care Provide r Wojciech Li MD Primary Care Provide r Reason for Visit * Reason Comments Med Refill Encounter Details Date Type Department Care Team (Late st Contact Info) Description 07/24/2023 Refill [facility] [address] [place] [address] Yoko Eng MD [address] [place] [address] Lumbago with sciatica, left side Social History Tobacco Use Types Packs/Day Years [...] Description 12/21/2024 11:00 AM EST Office Visit [facility] [place] [address] 01/06/2025 9:00 AM EDT Telemedicine [facility] [place] [address] documented as of this encounter Visit Diagnoses Diagnosis Lumbago with sciatica, left side documented in this encounter Additional Health Concerns Assessment Noted Time PHQ-9 Depression Total Score: 0 06/10/20 10:47 AM EDT documented as of this encounter Care Teams Greek Professor Relationship Specialty Start Date End Date [place] [address] PCP - General Internal Medicine 06/01/14 03/04/24 [place] [address] PCP - General Internal Medicine 03/12/24 03/12/24 [place] [address] PCP - General Internal Medicine 04/12/24 documented as of this encounter
--- OUTSIDE RECORDS SUMMARY | 2024-11-19 11:50 | XMS_ITS | Encounter Summary ---
Author Organization [employer] Address [address] [facility] [address] [facility] [address] [place] [address] Care Team Providers Care Grain Elevator Motor Starter Name Role Phone Wojciech Li MD Primary Care Provide r Wojciech Li MD Primary Care Provide r Wojciech Li MD Primary Care Provide r Reason for Visit * Reason Comments Med Refill Encounter Details Date Type Department Care Team (Late st Contact Info) Description 11/03/2023 Refill [facility] [address] [place], [place] [phone] Thanh Esposito, PharmD [address] [place] [address] Essential hypertension Social History Tobacco Use Types [...] 11:00 AM EST Office Visit [facility] [address] [place] [address] 01/06/2025 9:00 AM EDT Telemedicine [facility] [address] [place] [address] documented as of this encounter Visit Diagnoses Diagnosis Essential hypertension Unspecified essential hypertension documented in this encounter Additional Health Concerns Assessment Noted Time PHQ-9 Depression Total Score: 0 06/10/20 23 10:47 AM EDT documented as of this encounter Care Teams Grain Elevator Motor Starter Relationship Specialty Start Date End Date [place] [address] PCP - General Internal Medicine 06/01/14 03/04/24 Wojciech Li MD [address] [place] [address] PCP - General Internal Medicine 03/12/24 03/12/24 Wojciech Li MD [address] [place] [address] PCP - General Internal Medicine 04/12/24 documented as of this encounter
== END 2024-11-19 12:07 | disposition home or self-care (01) ==
PROVIDERS: PCP Internal Medicine; Referring Provider Internal Medicine; Visit Provider Physician Assistant
DX: M96.1 Postlaminectomy syndrome, not elsewhere classified (principal)
CPT/HCPCS: 99213

== ENCOUNTER → 2024-11-19 10:30 | Outpatient (BNVA) | payer MEDICAID, SELFPAY | PROVIDERS: PCP Internal Medicine; Referring Provider Internal Medicine; Visit Provider Physician Assistant | DX: M96.1 Postlaminectomy syndrome, not elsewhere classified (principal) | CPT/HCPCS: 99212 ==

== ENCOUNTER 2024-12-05 01:08 | Emergency (ER) | payer MEDICAID, SELFPAY ==
--- NOTE | ~2024-12-05 | XR_ITS ---
CLINICAL HISTORY: cough 1 view chest x-ray. Comparison: CR/SR - XR CHEST 2V - 09/09/24 11:24 EST Findings: No consolidation, pneumothorax, or effusion. Heart size normal. Impression: 1. No acute cardiopulmonary process. No focal pulmonary consolidation. This document has been electronically signed by: Conor Martinez MD on 12/05/2024 02:45:18
--- NOTE | ~2024-12-05 | CT_ITS ---
CLINICAL HISTORY: question left weakness CT head without contrast Comparison: 10/06/2020 Findings: No intracranial mass, midline shift, hydrocephalus, or acute hemorrhage. Visualized paranasal sinuses and mastoid air cells appear clear. The left mastoid air cells appear underpneumatized. No acute skull fracture. Impression: 1. No acute intracranial abnormality. No acute intracranial hemorrhage. CT angiography head and neck with contrast. 3-D postprocessing Comparison: 10/06/2020 Findings: The bilateral common carotid arteries and cervical portions of the internal carotid arteries appear patent without hemodynamically significant stenosis. The vertebral arteries appear patent bilaterally at the level of the neck. No carotid or vertebral dissection is seen. There is no evidence of vasculitis. No focal consolidation or effusion identified within the visualized portions of the bilateral lung apices. The intracranial vertebrobasilar system appears patent. Cerebellar and posterior cerebral arteries are intact. Intracranial internal carotid arteries appear patent. The bilateral anterior and middle cerebral arteries appear patent. The right MCA is stable in appearance as compared to the 10/06/2020 examination. No aneurysms or abrupt cutoffs visualized. Impression: 1. Patent bilateral carotid and vertebral arterial systems at the level of the neck without hemodynamically significant stenosis. 2. Patent anterior and posterior intracranial arterial circulation. No large vessel occlusion identified. This document has been electronically signed by: Conor Martinez MD on 12/05/2024 04:56:36
[2024-12-05 01:27] VITALS: BP 162/87; PULSE 86; RESP 16; TEMP 36.8; O2SAT 99; BMI 32.0
--- NOTE | 2024-12-05 01:39 | ECG_ITS ---
Test Reason : CHEST PAIN Blood Pressure : */* mmHG Vent. Rate : 80 BPM Atrial Rate : 80 BPM P-R Int : 130 ms QRS Dur : 82 ms QT Int : 390 ms P-R-T Axes : 12 59 26 degrees QTcB Int : 449 ms Normal sinus rhythm Normal ECG When compared with ECG of 06-Oct-2020 05:13, No significant change was found Referred By: Generic ED Physician Electronically Signed By: Duane Montoya
--- NOTE | 2024-12-05 01:53 | ED.GENADULT ---
HPI - General Adult General Chief complaint: General Medical Stated complaint: flu like? Time Seen by Provider: 12/05/24 01:52 Source: patient Limitations: language barrier and other (Poor historian) History of Present Illness ED Provider: Marta Barkley PA-C HPI narrative: 54-year-old female with a history of hypertension, diabetes, chronic pain, arthritis, complex migraine, GERD, presents with multiple complaints. Patient presents to triage stating that she has had cough and cold symptoms for 3 days. Her viral symptoms consist of headache, weakness, chest congestion, fatigue, productive cough with yellow sputum, and dysuria. Patient also states that she has developed left-sided chest pain that is ?taking the entire side of her left body?. When asked when her symptoms began, the patient can not give a clear answer. I asked if she has had these symptoms for 3 days with her cough and cold symptoms, she indicates yes. Related Data Home Medications ?Medication ?Instructions ?Recorded ?Confirmed bupropion HCl 150 mg 24 hr tablet, 150 mg PO DAILY 10/06/20 05/23/24 extended release (Wellbutrin XL) cetirizine 10 mg tablet (Zyrtec) 10 mg PO DAILY 10/06/20 05/23/24 duloxetine 60 mg capsule,delayed 60 mg PO DAILY 10/06/20 05/23/24 release (Cymbalta) insulin glargine 100 unit/mL 26 unit subcut BEDTIME 10/06/20 05/23/24 subcutaneous solution (Lantus U-100 Insulin) mirtazapine 45 mg tablet 45 mg PO BEDTIME PRN Insomnia 10/06/20 05/23/24 montelukast 10 mg tablet 10 mg PO BEDTIME 10/06/20 05/23/24 (Singulair) prazosin 1 mg capsule 1 mg PO BEDTIME 10/06/20 05/23/24 ropinirole 1 mg tablet 1 mg PO BEDTIME 10/06/20 05/23/24 tiotropium bromide 18 mcg capsule 1 cap inhalation DAILY 10/06/20 05/23/24 with inhalation device (Spiriva with HandiHaler) fenofibrate micronized 134 mg 1 tab PO DAILY@1800 05/24/21 05/23/24 capsule fluticasone propionate 50 2 spray intranasal DAILY 05/24/21 05/23/24 mcg/actuation nasal spray,suspension albuterol sulfate 2.5 mg/3 mL 2.5 mg inhalation Q4H PRN wheezing 05/23/24 05/23/24 (0.083 %) solution for nebulization albuterol sulfate 90 mcg/actuation 2 puff inhalation Q4H PRN 05/23/24 05/23/24 aerosol inhaler (Ventolin HFA) Shortness Of Breath Or Wheezing baclofen 10 mg tablet 10 mg PO TID muscle spasm 05/23/24 05/23/24 clotrimazole 1 % topical cream 1 appl topical Q12H PRN Rash 05/23/24 05/23/24 diclofenac sodium 1 % topical gel 2 g topical QID PRN pain 05/23/24 05/23/24 dulaglutide 1.5 mg/0.5 mL 1.5 mg subcut TH@0900 05/23/24 05/23/24 subcutaneous pen injector (Trulicity) gabapentin 100 mg capsule 100 mg PO TID 05/23/24 05/23/24 lisinopril 20 mg tablet 20 mg PO DAILY 05/23/24 05/23/24 propranolol 40 mg tablet 40 mg PO BID 05/23/24 05/23/24 pseudoephedrine HCl 30 mg tablet 30 mg PO Q4H PRN congestion 05/23/24 05/23/24 (Sudogest) trazodone 50 mg tablet 50 mg PO BEDTIME PRN Insomnia 05/23/24 05/23/24 Previous Rx's ?Medication ?Instructions ?Recorded ondansetron 4 mg disintegrating 4 mg PO Q8H PRN nausea and 05/16/24 tablet vomiting #7 tabs famotidine 20 mg tablet 20 mg PO DAILY #30 tabs 05/24/24 hydrocodone 5 mg-acetaminophen 325 1 tab PO Q4-6H PRN pain #30 tabs 06/23/24 mg tablet hyuzzulpuc-hvutrzejbskqo-uotumvkh 1 tab PO Q6H PRN haeadace #20 tabs 12/05/24 50 mg-325 mg-40 mg tablet sumatriptan succinate 50 mg tablet 50 mg PO Q2H PRN migraine headache 12/05/24 (Imitrex) #10 tabs Allergies Allergy/AdvReac Type Severity Reaction Status Date / Time ENVIRONMENTAL Allergy Mild Dry Eye Uncoded 12/05/24 01:34 Review of Systems Review of Systems: Yes all other systems are reviewed and are negative Constitutional: Constitutional: Reports fatigue, Denies fever(s), Reports headache(s) and Reports malaise ENT: Denies dizziness and Reports headache(s) Cardiovascular: Cardiovascular: Reports chest pain and Reports dyspnea Respiratory: Respiratory: Reports chest congestion, Reports cough and Reports dyspnea Gastrointestinal: Gastrointestinal: Denies abdominal pain, Denies diarrhea, Denies nausea and Denies vomiting Genitourinary: Genitourinary: Reports dysuria Musculoskeletal: Musculoskeletal: Reports muscle weakness, Denies numbness and Denies tingling Neurologic: Denies dizziness, Reports headache(s), Denies numbness and Denies tingling Endocrine: Endocrine: Reports fatigue PMFSH Past Medical History Attestation statement: The following information was validated with the patient. Medical History (Updated 12/05/24 @ 06:40 by Romero Gastelum MD) Hemiplegic migraine HLD (hyperlipidemia) HTN (hypertension) Migraines Sciatica Asthma COPD (chronic obstructive pulmonary disease) Diabetes Surgical History (Updated 06/23/24 @ 08:37 by Harmeet Tarango MD) Hx of colonoscopy History of esophagogastroduodenoscopy (EGD) Hx laparoscopic cholecystectomy History of ear surgery H/O: hysterectomy Family History Family History Sister Migraine Social History Social History Household Members: None Housing: Apartment Do you presently have visiting nurse or other home services: No Alcohol intake: never Patient Tobacco Use Status: Current everyday Tobacco user Tobacco use type: Cigarette Cigarette Packs Per Day: 0.4 Cigarettes Per Day: 7 Years Smoked: 20 Second Hand Smoke Exposure: Yes Advance Directives: No Advance Directives Information Provided: Yes Do you have a plan to hurt others: No Plan service: No Current occupational status: other Physical Exam ED Vital Signs: Vital Signs - 24 hr 12/05/24 01:27 12/05/24 02:09 12/05/24 04:12 Temperature 98.2 F 98.4 F 98 F Pulse Rate 86 82 78 Respiratory Rate 16 16 16 Blood Pressure 162/87 H 146/86 H 125/68 Pulse Oximetry 99 96 98 Oxygen Delivery Method Room Air Room Air Room Air BMI result Body Mass Index 32.0 Const Other: Awake, appears older than stated age Orientation/consciousness: patient oriented x3 Resp Effort & Inspection: normal respiratory effort Cardio Other: Normal peripheral perfusion Skin Other: Warm dry no rash Neuro Other: With distraction, there is no facial droop on the left, patient has had to be asked numerous times to perform cranial nerve function. She is able to stand and support her weight, and manipulate and move herself in bed. Her sensation is intact and her speech is normal. She will not fully stick out her tongue. General: patient oriented x3, gait normal, no focal motor deficits and CN's II-XI intact bilaterally Extrem Other: Strength 5/5 bilateral upper and lower extremities with resistance, her exam changes from time to time, but with the distraction, the strength is equal Psych Other: Poor historian, somewhat cooperative, flat affect NIH Stroke Scale Internal: Initial- Upon Arrival Level of Consciousness: Alert Level of Consciousness Questions: Answers both questions correctly Level of Consciousness Commands: Performs both tasks correctly Best Gaze: Normal Visual: No visual loss Facial Palsy: Minor paralyis Motor Arm (Right): No drift Motor Arm (Left): No drift Motor Leg (Right): No drift Motor Leg (Left): No drift Limb Ataxia: Absent Sensory: Normal Best Language: No aphasia Dysarthia: Normal Extinction and Inattention: No abnormality Score: 1 Course Course Course Narrative: Signed out to night team pending imaging and final disposition. Reevaluation(s) Reevaluation #1: I just observe the patient walk from the bathroom to her room with a ease without assistance, again, her strength is equal bilaterally Time: 02:55 Medications Administered Discontinued Medications Generic Name Dose Route Start Last Admin Trade Name Mikeq PRN Reason Stop Dose Admin Diphenhydramine HCl 25 mg 12/05/24 03:45 12/05/24 04:08 Diphenhydramine Hcl 50 Mg/Ml Vial IVPUSH 12/05/24 03:46 25 mg ONCE ONE Administration Acetaminophen 1,000 mg in 100 mls @ 400 mls/hr 12/05/24 03:45 12/05/24 04:42 Ofirmev IV 12/05/24 03:59 Infused ONCE ONE Infusion Iohexol 65 ml 12/05/24 03:09 12/05/24 03:09 Iohexol 350 Mg/Ml 100 Ml Infus..Btl IV 12/05/24 03:10 65 ml ONCE ONE Administration Prochlorperazine Edisylate 10 mg 12/05/24 03:45 12/05/24 04:08 Prochlorperazine Edisylate 10 Mg/2 Ml Vial IVPUSH 12/05/24 03:46 10 mg ONCE ONE Administration Medical Decision Making Medical Decision Making MDM Narrative: 54-year-old female with a history of hypertension, diabetes, chronic pain, arthritis, complex migraine, GERD, presents with multiple complaints. Patient presents to triage stating that she has had cough and cold symptoms for 3 days. Her viral symptoms consist of headache, weakness, chest congestion, fatigue, productive cough with yellow sputum, and dysuria. Patient also states that she has developed left-sided chest pain that is ?taking the entire side of her left body?. When asked when her symptoms began, the patient can not give a clear answer. I asked if she has had these symptoms for 3 days with her cough and cold symptoms, she indicates yes. Problem: Diabetes, hypertension, chronic pain, complex migraine History: Per patient I have considered the following differential diagnoses: Complex migraine, viral syndrome, pneumonia, CVA , UTI, hypoglycemia Plan: Patient initially comes to the ED due to cough and cold symptoms. She then realized she is having neurologic symptoms, of unclear duration. We are not getting a completely accurate objective exam, we will order imaging. Screening labs including urinalysis, viral panel, chest x-ray EKG were ordered. Her point of care sugar was 136 on arrival. We will be ordering migraine cocktail, the patient does have a history of complex migraines, we will give Tylenol Benadryl Compazine. I have independently reviewed the following tests: Labs: No leukocytosis, not anemic, no electrolyte abnormality, viral panel negative, UA EKG: Normal sinus rhythm, rate 80, no ischemic changes no ectopy Chest x-ray: Impression: 1. No acute cardiopulmonary process. No focal pulmonary consolidation. This document has been electronically signed by: Conor Martinez MD on 12/05/2024 02:45:18 CT brain: CT angio brain head and neck: No acute Patient does have history of complicated migraine with similar presentation headaches and left-sided weakness seen by neurologist in 2019 CTA head was negative diagnose with migraine symptoms usually improves after headaches gets better will discharge patient home patient is able to ambulate without any weakness in the left side no focal deficit noticed will discharge patient home Differential Diagnosis Differential Diagnoses: The differential diagnosis associated with the presentation includes Complicated migraine/psychogenic Lab Data MDM Lab Attestation statement: I reviewed the patient's lab results. 12/05/24 02:08 12/05/24 02:08 Labs: Lab Results 12/05/24 12/05/24 12/05/24 Range/Units 02:01 02:08 02:58 WBC 8.8 (4.8-10.8) X10*3/uL RBC 4.46 (4.20-5.50) X10*6/uL Hgb 14.2 (12.0-16.0) g/dl Hct 39.6 (37.0-47.0) % MCV 88.8 (80.0-98.0) fL MCH 31.8 (27.0-33.0) pg MCHC 35.9 H (31.0-35.0) g/dl RDW 12.6 (11.0-16.0) % Plt Count 300 D (160-400) X10*3/uL MPV 10.5 (9.4-12.3) fL Immature Gran % (Auto) 0.3 (0.0-0.4) % Neut % (Auto) 55.5 (45-73) % Lymph % (Auto) 35.3 (20-40) % [place] % (Auto) 6.3 (2-11) % Eos % (Auto) 2.3 (0-4) % Baso % (Auto) 0.3 (0-2) % Lymph # (Auto) 3.1 (1.2-4.9) X10*3/uL [place] # (Auto) 0.6 (0.1-1.2) X10*3/uL Eos # (Auto) 0.2 (0.0-0.4) X10*3/uL Baso # (Auto) 0.0 (0.0-0.2) X10*3/uL Abs Immat Gran (auto) 0.03 (0.00-0.03) X10*3/uL Absolute Neuts (auto) 4.9 (2.0-8.3) x10*3/uL Absolute Nucleated RBC 0.000 (0.0-0.012) X10*3/uL Nucleated RBC % (auto) 0.0 (0.0-0.2) /100WBC PT 11.7 (10.9-12.4) SEC INR 1.0 (0.9-1.1) Sodium 141 (135-145) mmol/L Potassium 3.7 (3.3-5.1) mmol/L Chloride 106 (96-108) mmol/L Carbon Dioxide 23 (22-29) mmol/L Anion Gap 16 (12-20) BUN 18 H (9-16) mg/dL Creatinine 0.77 (0.5-1.4) mg/dL Estim Creat Clear Calc 87.9 Estimated GFR > 60 POC Glucose 136 H (60-115) mg/dL Random Glucose 130 H (60-115) mg/dL Calcium 9.9 (8.4-10.2) mg/dL Total Bilirubin 0.3 (0.0-1.0) mg/dL AST 31 (5-31) U/L ALT 41 H (0-31) U/L Alkaline Phosphatase 134 H (39-117) U/L Total Protein 8.4 H (6.5-8.0) g/dL Albumin 4.4 (3.5-5.0) g/dL Urine Color Yellow Urine Appearance Clear Urine pH 5.5 (5.0-9.0) Ur Specific [place] 1.015 (1.005-1.025) Urine Protein Negative (Neg-Trace) mg/dL Urine Glucose (UA) Negative (Negative) mg/dL Urine Ketones Negative (Negative) mg/dL Urine Blood Small (1+) H (Negative) Urine Nitrite Negative (Negative) Ur Leukocyte Esterase Moderate (2+) H (Negative) Urine RBC 3-5 H (0-2) /HPF Urine WBC >50 H (0-5) /HPF Ur Squamous Epith Cells 3-5 (0-2) /HPF Urine Bacteria Trace (None Seen) Hyaline Casts 0-2 (0-2) /LPF Influenza Type A (PCR) NEGATIVE (Negative) Influenza Type B (PCR) NEGATIVE (Negative) RSV RNA Qual (PCR) NEGATIVE (Negative) SARS-CoV-2 RNA (RT-PCR) NEGATIVE (Negative) Discharge Plan Discharge Clinical Impression: Complicated migraine, Acute viral syndrome Patient Disposition: Home, Self-Care Instructions: Migraine Headache (ED), Viral Syndrome (ED) Additional Instructions: Drink plenty of fluids Medication for migraine as prescribed Sumatriptan 1 tablet at the onset of headache may repeat in 2 hours if headache continues not more than 2 tablets in 24 hours Fioricet 1 tablet every 6 hours as needed for headache Prescriptions: New sumatriptan succinate [Imitrex] 50 mg tablet 50 mg PO Q2H PRN (Reason: migraine headache) Qty: 10 0RF Rx Instructions: do not exceed 2 doses per 24 hrs puwlbiecqv-vmumstsmgmopc-xmih 50-325-40 mg tablet 1 tab PO Q6H PRN (Reason: haeadace) Qty: 20 0RF No Action ropinirole 1 mg Tablet 1 mg PO BEDTIME insulin glargine [Lantus U-100 Insulin] 100 unit/mL Solution 26 unit SUBCUT BEDTIME cetirizine [Zyrtec] 10 mg Tablet 10 mg PO DAILY prazosin 1 mg Capsule 1 mg PO BEDTIME mirtazapine 45 mg Tablet 45 mg PO BEDTIME PRN (Reason: Insomnia) montelukast [Singulair] 10 mg Tablet 10 mg PO BEDTIME bupropion HCl [Wellbutrin XL] 150 mg Tablet Extended Release 24 Hr 150 mg PO DAILY tiotropium bromide [Spiriva with HandiHaler] 18 mcg Capsule, W/Inhalation Device 1 cap INHALATION DAILY duloxetine [Cymbalta] 60 mg Capsule,Delayed Release(Dr/Ec) 60 mg PO DAILY fenofibrate micronized 134 mg capsule 1 tab PO DAILY@1800 fluticasone propionate 50 mcg/actuation spray,suspension 2 spray intranasal DAILY albuterol sulfate 2.5 mg /3 mL (0.083 %) solution for nebulization 2.5 mg inhalation Q4H PRN (Reason: wheezing) trazodone 50 mg tablet 50 mg PO BEDTIME PRN (Reason: Insomnia) lisinopril 20 mg tablet 20 mg PO DAILY propranolol 40 mg tablet 40 mg PO BID baclofen 10 mg tablet 10 mg PO TID pseudoephedrine HCl [Sudogest] 30 mg tablet 30 mg PO Q4H PRN (Reason: congestion) gabapentin 100 mg capsule 100 mg PO TID albuterol sulfate [Ventolin HFA] 90 mcg/actuation HFA aerosol inhaler 2 puff INHALATION Q4H PRN (Reason: Shortness Of Breath Or Wheezing) clotrimazole 1 % cream 1 appl topical Q12H PRN (Reason: Rash) diclofenac sodium 1 % gel 2 g topical QID PRN (Reason: pain) Trulicity 1.5 mg/0.5 mL pen injector 1.5 mg subcut TH@0900 famotidine 20 mg Tablet 20 mg PO DAILY Qty: 30 0RF ondansetron 4 mg tablet,disintegrating 4 mg PO Q8H PRN (Reason: nausea and vomiting) Qty: 7 0RF hydrocodone-acetaminophen 5-325 mg tablet 1 tab PO Q4-6H PRN (Reason: pain) Qty: 30 0RF Rx Instructions: Partial Fill upon patient request. Print Language: [place]
[2024-12-05 02:06] LABS: Glucose, Whole Blood 136 mg/dL (60-115)
[2024-12-05 02:09] VITALS: BP 146/86; PULSE 82; RESP 16; TEMP 36.9; O2SAT 96
[2024-12-05 02:15] LABS: MANUAL DIFF FLAG NO
[2024-12-05 02:17] LABS: Basophils Percent Auto 0.3 % (0-2); Eosinophils Absolute Auto 0.2 X10*3/uL (0.0-0.4); Eosinophils Percent Auto 2.3 % (0-4); Hematocrit 39.6 % (37.0-47.0); Hemoglobin 14.2 g/dl (12.0-16.0); Imm Gran Abs Auto 0.03 X10*3/uL (0.00-0.03); Imm Gran Pct Auto 0.3 % (0.0-0.4); Lymphocytes Absolute Auto 3.1 X10*3/uL (1.2-4.9); Lymphocytes Percent Auto 35.3 % (20-40); Mean Corpuscular HGB Conc 35.9 g/dl (31.0-35.0); Mean Corpuscular Hemoglobin 31.8 pg (27.0-33.0); Mean Corpuscular Volume 88.8 fL (80.0-98.0); Mean Platelet Volume 10.5 fL (9.4-12.3); Monocytes Absolute Auto 0.6 X10*3/uL (0.1-1.2); Monocytes Percent Auto 6.3 % (2-11); Neutrophils Absolute Auto 4.9 x10*3/uL (2.0-8.3); Neutrophils Percent Auto 55.5 % (45-73); Platelet Count 300 X10*3/uL (160-400); Red Blood Count 4.46 X10*6/uL (4.20-5.50); Red Cell Distribution Width 12.6 % (11.0-16.0); White Blood Count 8.8 X10*3/uL (4.8-10.8)
[2024-12-05 02:22] LABS: Prothrombin Time 11.7 SEC (10.9-12.4)
[2024-12-05 02:46] LABS: Alanine Aminotransferase 41 U/L (0-31); Albumin Level 4.4 g/dL (3.5-5.0); Alkaline Phosphatase 134 U/L (39-117); Anion Gap 16 (12-20); Aspartate Amino Transferase 31 U/L (5-31); Bilirubin Total 0.3 mg/dL (0.0-1.0); Blood Urea Nitrogen 18 mg/dL (9-16); Calcium 9.9 mg/dL (8.4-10.2); Carbon Dioxide 23 mmol/L (22-29); Chloride 106 mmol/L (96-108); Creatinine Clr Calc Pharmacy 87.9; Estimated Glomerular Filt Rate > 60; Glucose Random 130 mg/dL (60-115); Potassium 3.7 mmol/L (3.3-5.1); Sodium 141 mmol/L (135-145); Total Protein 8.4 g/dL (6.5-8.0)
[2024-12-05 02:50] LABS: Influenza A PCR NEGATIVE (Negative); Influenza B PCR NEGATIVE (Negative); Resp Syncy Virus RNA Qual PCR NEGATIVE (Negative); SARS COV2 PCR INHOUSE NEGATIVE (Negative)
[2024-12-05] MEDS: iohexoL 350 MG/ML 100 ML INFUS..BTL 65 ML IV (03:09)
[2024-12-05 03:12] LABS: Appearance Urine Clear; Color Urine Yellow; Glucose Urine UA Negative (Negative); Leukocyte Esterase Urine Moderate (2+) (Negative); Nitrite Urine Negative (Negative); PH 5.5 (5.0-9.0); Specific Gravity - Urine 1.015 (1.005-1.025); UMIC TRIGGER UACC YES; Urine Blood Small (1+) (Negative); Urine Ketones Negative (Negative); Urine Protein Negative (Neg-Trace)
[2024-12-05 03:30] LABS: Bacteria Urine Trace (None Seen); Hyaline Casts Urine 0-2 /LPF (0-2); UACC Culture Trigger YES; WBC Urine >50 /HPF (0-5)
[2024-12-05] MEDS: diphenhydrAMINE HCL 50 MG/ML VIAL 25 MG IVPUSH (04:08)
[2024-12-05] MEDS: Acetaminophen 1,000 MG/100 ML PIGGYBACK 400 MG IV (04:08)
[2024-12-05] MEDS: Prochlorperazine Edisylate 10 MG/2 ML VIAL IVPUSH (04:08)
[2024-12-05 04:12] VITALS: BP 125/68; PULSE 78; RESP 16; TEMP 36.6; O2SAT 98
[2024-12-05 06:51] VITALS: BP 125/68; PULSE 78; RESP 16; TEMP 36.6; O2SAT 98
== END 2024-12-05 06:52 | disposition home or self-care (01) ==
PROVIDERS: Emergency Provider Internal Medicine
DX: G43.909 Migraine, unspecified, not intractable, without status migrainosus (principal); B34.9 Viral infection, unspecified; R07.89 Other chest pain; R29.701 NIHSS score 1; R30.0 Dysuria; R05.9 Cough, unspecified; Z03.818 Encounter for observation for suspected exposure to other biological agents ruled out; Z79.899 Other long term (current) drug therapy
CPT/HCPCS: 0241U; 70496; 70498; 71045; 80053; 81001; 82947; 85025; 85610; 87086; 93005; 96365; 96375; 99284; 99285; J0131; J0737; J1200; Q9967

== ENCOUNTER → 2024-12-05 01:39 | Outpatient (BNV) | payer MEDICAID, SELFPAY | PROVIDERS: Emergency Provider Internal Medicine; Visit Provider Internal Medicine Cardiovascular Disease | DX: R07.9 Chest pain, unspecified (principal) | CPT/HCPCS: 93010 ==

== ENCOUNTER → 2024-12-05 01:40 | Outpatient (BNV) | payer MEDICAID, SELFPAY | PROVIDERS: Emergency Provider Internal Medicine; Visit Provider Radiology Diagnostic Radiology | DX: R05.9 Cough, unspecified (principal) | CPT/HCPCS: 70496; 70498; 71045 ==

== ENCOUNTER 2024-12-17 10:45 | Outpatient (REF) | payer MEDICAID, SELFPAY ==
--- NOTE | ~2024-12-17 | MM_ITS ---
EXAMINATION: DXA BONE DENSITY AXIAL HISTORY: Estrogen deficiency TECHNIQUE: REPP Dual energy absorptiometry (DEXA) of the lumbar spine, total left hip, and femoral neck was performed. COMPARISON: There are no prior studies for comparison. FINDINGS: The bone mineral density of the lumbar spine is 1.005 with a T-score of -1.4, and a Z-score of -1.2. The bone mineral density of the left total hip is 0.909 with a T-score of -0.8, and a Z-score of -0.6. The bone mineral density of the left femoral neck is 0.900 with a T-score of -1.0, and a Z-score of -0.4. FRACTURE RISK: The FRAX index suggests a risk of major osteoporotic fracture of 5.2%, and of hip fracture 0.5%. MM/XR DEXA axial skeleton IMPRESSION: Based on bone mineral density, and according to World Health Organization (WHO) criteria, the diagnosis is consistent with osteopenia. All bone density values are in grams per centimeter squared (g/cm2). Statistically, 68% of repeat scans fall within 1 SD (+/- 0.010 g/cm2 for AP spine L1-L4) and 1 SD (+/- 0.012 g/cm2 for femur total) FRAX is a trademark of the [employer]'s [employer] Metabolic Bone Disease, a World Health Organization (WHO) Collaborating Center. Electronically signed by: Pascual Ellis MD 12/20/2024 08:51 AM EST
--- OUTSIDE RECORDS SUMMARY | 2024-12-17 11:49 | XMS_ITS | Clinical Summary ---
Author Organization [employer] Address [address] [place] [address] Care Team Providers Care Weld Inspector Name Role Phone Wojciech Li MD Primary Care Provide r Allergies No known active allergies Medications buPROPion XL (Wellbutrin XL) 300 MG 24 hr tablet Take 300 mg by mouth in the morning. 023 Active DULoxetine (Cymbalta) [address] capsule Take 60 mg by mouth in the morning. 023 Active mirtazapine (Remeron) 45 MG tablet Take 45 mg by mouth at bedtime. 023 Active naloxone (Narcan) 4 mg/0.1 mL nasal spray Administer 0.1 mL into affected nostril(s). Active prazosin (Minipress) 1 MG capsule Take 1 mg by mouth at bedtime. 023 Active Diclofenac Sodium 1 % gel Apply 2 g topically if needed in the morning, at noon, in the evening, and at bedtime (pain). 150 g 3 024 Active albuterol (2.5 MG/3ML) 0.083% nebulizer solutionIndicati ons:Chronic low back pain, unspecified back pain laterality, unspecified whether sciatica present,Chronic obstructive pulmonary disease, unspecified COPD type (CMS/HCC) INHALE 1 AMPULE USING A NEBULIZER EVERY 4 HOURS NEEDED FOR WHEEZING OR SHORTNESS OF BREATH 90 mL 1 024 Active fluticasone (Flonase Allergy Relief) 50 MCG/ACT nasal sprayIndications :Shortness of breath SPRAY 2 SPRAYS INTO EACH NOSTRIL EVERY DAY 48 g 1 Active cetirizine (ZyrTEC) 10 MG tabletIndication s:Seasonal allergies TAKE 1 TABLET BY MOUTH EVERY DAY 90 tablet 1 024 Active lisinopril 20 MG tabletIndication s:Essential hypertension TAKE 1 TABLET BY MOUTH EVERY MORNING 90 tablet 1 024 Active rOPINIRole (Requip) 1 MG tabletIndication s:Restless leg syndrome TAKE 1 TABLET BY MOUTH AT BEDTIME 30 tablet 3 024 Active ibuprofen 200 MG tabletIndication s:Acute exacerbation of COPD with asthma ([facility]) Take 2 tablets (400 mg) by mouth every 8 (eight) hours if needed for mild pain or moderate pain. 20 tablet Active albuterol 108 (90 Base) MCG/ACT inhalerIndicatio ns:Acute exacerbation of COPD with asthma ([facility]),Chroni c low back pain, unspecified back pain laterality, unspecified whether sciatica present,Chronic obstructive pulmonary disease, unspecified COPD type ([facility]) Inhale 2 puffs every 4 (four) hours if needed for wheezing or shortness of breath. 18 g 1 024 2024 Active insulin pen needle (UltiCare Short Pen [place]) 31G X 8 mm miscIndications: Type 2 diabetes mellitus without complication, unspecified whether predatory animal exterminator insulin use ([facility]) USE DIRECTED AT BEDTIME 100 each 3 Active glimepiride (Amaryl) 1 MG tabletIndication s:Type 2 diabetes mellitus without complication, unspecified whether predatory animal exterminator insulin use ([facility]) Take 1 tablet (1 mg) by mouth [...] if needed at bedtime for sleep. Active propranolol (Inderal) 40 MG tabletIndication s:Essential hypertension TAKE 1 TABLET BY MOUTH TWICE DAILY IN THE MORNING AND IN THE EVENING 180 tablet Active tiotropium (Spiriva HandiHaler) 18 MCG inhalation capsuleIndicatio ns:Moderate persistent asthma without complication USE 1 CAPSULE FOR INHALATION ONCE A DAY DO NOT SWALLOW CAPSULE 30 capsule 5 024 Active Arnuity Ellipta 200 MCG/ACT inhaler INHALE 1 PUFF BY MOUTH EVERY DAY AT THE SAME TIME. RINSE MOUTH AFTER USING. DO NOT SWALLOW. 30 each 5 024 Active ketoconazole (NIZOral) 2 % shampooIndicatio ns:Pityriasis alba Apply topically 2 (two) times a week. 120 mL 024 Active Blood Pressure Monitoring (Omron 3 Series BP Monitor) deviceIndication s:Essential hypertension Use as directed 1 each 025 Active Trulicity 1.5 MG/0.5ML solution auto-injectorInd ications:Type 2 diabetes mellitus without complication, unspecified whether group home insulin use ([facility]) INJECT ONE PEN (=1.5MG) SUBCUTANEOUSLY ONCE A WEEK DIRECTED 2 mL 2 025 Active montelukast (Singulair) 10 MG tabletIndication s:Seasonal allergies TAKE 1 TABLET BY MOUTH AT BEDTIME 90 tablet 1 025 Active Acetaminophen (Mapap) 500 MG capsuleIndicatio ns:Other chronic pain Take 1 capsule (500 mg) by mouth every 8 (eight) hours if needed for mild pain. 30 capsule 025 Active oxyCODONE (Roxicodone) 5 MG immediate release tabletIndication s:Chronic midline low back pain without sciatica Take 1 tablet (5 mg) by mouth every 8 (eight) hours if needed for severe pain. 84 tablet 025 Active TRUEplus Lancets 33G miscIndications: Type 2 diabetes mellitus without complication, unspecified whether predatory animal exterminator insulin use ([facility]) TEST BLOOD SUGAR ONCE DAILY 100 each 11 025 Active glucose blood (FREESTYLE LITE) test stripIndications :Type 2 diabetes mellitus without complication, unspecified whether group home insulin use ([facility]) TEST BLOOD SUGAR ONCE DAILY 100 strip 11 025 Active famotidine (Pepcid) 20 MG tablet TAKE 1 TABLET BY MOUTH TWICE DAILY IN THE MORNING AND AT BEDTIME 180 tablet 025 Active D3 Super Strength 50 MCG (1999 UT) capsuleIndicatio ns:Low vitamin D level TAKE 1 CAPSULE BY MOUTH EVERY MORNING 90 capsule 025 Active Alcohol Swabs (Alcohol Prep) 70 % pads USE FOUR TIMES DAILY 100 each 11 025 Active Alcohol Swabs (Alcohol Prep) 70 % pads USE FOUR TIMES DAILY 100 each 11 023 2024 Discontinued glucose blood (FREESTYLE LITE) test stripIndications :Type 2 diabetes mellitus without complication, unspecified whether group home insulin use ([facility]) Test blood sugar once a day 100 each 023 2024 Discontinued TRUEplus Lancets 33G miscIndications: Type 2 diabetes mellitus without complication, unspecified whether predatory animal exterminator insulin use ([facility]) TEST BLOOD SUGAR ONCE DAILY 100 each 11 023 2024 Discontinued montelukast (Singulair) 10 MG tabletIndication s:Seasonal allergies Take 1 tablet (10 mg) by mouth at bedtime. 90 tablet 1 024 2024 Discontinued Trulicity 1.5 MG/0.5ML solution auto-injectorInd ications:Type 2 diabetes mellitus without complication, unspecified whether group home insulin use ([facility]) INJECT ONE PEN (=1.5MG) SUBCUTANEOUSLY ONCE A WEEK DIRECTED 2 mL 2 024 2024 Discontinued famotidine (Pepcid) 20 MG tablet TAKE 1 TABLET BY MOUTH TWICE A DAY 180 tablet 024 2024 Discontinued cholecalciferol (Vitamin D-3) 50 MCG (1999 UT) capsuleIndicatio ns:Low vitamin D level Take 1 capsule (50 mcg) by mouth Once per day. 30 capsule 3 024 2024 Discontinued oxyCODONE (Roxicodone) 5 MG immediate release tabletIndication s:Chronic midline low back pain without sciatica Take 1 tablet (5 mg) by mouth every 8 (eight) hours if needed for severe pain. 84 tablet 025 2024 Discontinued(R eorder (will not trigger notification to Pharmacy)) Mapap 500 MG capsuleIndicatio ns:Other chronic pain TAKE 1 CAPSULE BY MOUTH EVERY 8 HOURS NEEDED FOR MODERATE PAIN OR FOR FEVER 30 capsule 025 2024 Discontinued(R eorder (will not trigger notification to Pharmacy)) Active Problems Problem Noted Date Diagnosed Date Physical exam, annual 11/16/2024 Assessment & Plan (11/16/2024 12:31 PM EST): Physical exam today, aside from her chronic back pain is otherwise unremarkable Pityriasis alba 10/05/2024 Assessment & Plan (10/05/2024 10:46 AM EST): Will refer to our [facility] D[facility] clinic Intractable left heel pain 10/05/2024 [...] remains under the care of [facility] in [facility]. Her psychiatrist is Dr Goyal ([phone]). She had a previous admission this year at [facility] for a psychiatric admission due to [...] remains under the care of [facility] in [facility]. Her psychiatrist is Dr Goyal ([phone]). She had a previous admission this year at [facility] for a psychiatric admission due to [...] PM EST): Recent exacerbation, seen at our [facility], just finished a Prednisone taper and Z- [...] labs -encouraged home BP monitoring -advised contact [facility] if BP persistently elevated Assessment & Plan [...] last done on: by Dr. Tyra Bruce Assistant Dean [employer] 07/31/2018 Microalbumin checked on: 07/15/2023was 49.Pt is [...] last done on: by Dr. Tyra Bruce Assistant [employer] 07/31/2018 Microalbumin checked on: 07/15/2023was 49.Pt is [...] Will refer back Pt had left for [place] and then came back EMG showed: IMPRESSION: [...] Will refer back Pt had left for [place] and then came back EMG showed: IMPRESSION: [...] given EMG findings and refer back to [facility] Continue Oxycodone and Acetaminophen Assessment & Plan (09/14/2024 1:33 PM EST): unchanged intensity 05/05 radiation to both legs. Pt is s/p [...] Encounters Date Type Department Care Team Description 12/10/2024 Refill [facility] [address] [place] [address] Miriam Lai MD Acute exacerbation of COPD with asthma ([facility]); Chronic low back pain, unspecified back pain laterality, unspecified whether sciatica present; Chronic obstructive pulmonary disease, unspecified COPD type ([facility]) 12/09/2024 Telephone [facility] [address] [place] [address] Wojciech Li MD Durable Medical Equipment 12/07/2024 Refill [facility] [address] [place] [address] Wojciech Li MD Other chronic pain; Chronic midline low back pain without sciatica 12/06/2024 Refill [facility] [address] [place] [address] Yusra Ledezma RN Chronic midline low back pain without sciatica; Other chronic pain 12/06/2024 Telephone [facility] [address] [place] [address] Ivette Barahona, DYNAMOMETER TUNER Follow-up 12/06/2024 Telephone [facility] [address] [place] [address] Wojciech Li MD Med Refill 12/06/2024 Refill [facility] [address] [place] [address] Wojciech Li MD Low vitamin D level 12/05/2024 Orders Only GENERIC EXTERNAL DATA DEPARTMENT Provider, Generic External Data 12/03/2024 Refill [facility] [address] [place] [address] Wojciech Li MD Other chronic pain; Chronic midline low back pain without sciatica 12/02/2024 Refill [facility] [address] [place] [address] Wojciech Li MD Type 2 diabetes mellitus without complication, unspecified whether group home insulin use ([facility]) 12/01/2024 Refill [facility] [address] [place] [address] Wojciech Li MD Other chronic pain 12/01/2024 Refill [facility] [address] [place] [address] Wojciech Li MD Chronic midline low back pain without sciatica 12/01/2024 Refill [facility] [address] [facility] [place] [address] Dayanara Olmstead, Seasonal allergies 11/23/2024 Refill [facility] [address] [place] [address] Wojciech Li MD Type 2 diabetes mellitus without complication, unspecified whether predatory animal exterminator insulin use (CMS/HCC) 11/17/2024 Telephone [facility] [address] [place] [address] Wojciech Li MD 11/16/2024 10:30 AM EST Office Visit [facility] [place] [address] Wojciech Li MD Type 2 diabetes mellitus without complication, with long-term current use of insulin (CMS/HCC) (Primary Dx); Type 2 diabetes mellitus without complication, unspecified whether predatory animal exterminator insulin use (CMS/HCC); Intractable left heel pain; Essential hypertension; Chronic midline low back pain without sciatica; Bipolar affective disorder, currently depressed, moderate (CMS/HCC); Physical exam, annual; Obesity (BMI 30-39.9); Dietary counseling; Exercise counseling 11/16/2024 Travel 11/12/2024 Telephone [facility] [address] [facility] [place] [address] Wojciech Li MD Referral 11/09/2024 Telephone [facility] [address] [facility] [place] [phone] Kaylee Hogan, RN Results 11/09/2024 Orders Only [facility] [address] [place] [phone] Wojciech Li MD Chronic right-sided low back pain without sciatica (Primary Dx) 11/04/2024 1:00 PM EST Clinical Support [facility] [address], [place] [phone] Yusra Ledezma RN Chronic midline low back pain without sciatica 11/04/2024 9:00 AM EST Telemedicine [facility] [address] [place] [phone] Jackson Anne PharmD Type 2 diabetes mellitus without complication, unspecified whether predatory animal exterminator insulin use ([facility]) (Primary Dx); Essential hypertension; Mixed hyperlipidemia; Bipolar affective disorder, currently depressed, moderate ([facility]); Chronic obstructive pulmonary disease, unspecified COPD type ([facility]); Moderate persistent asthma without complication 11/04/2024 Refill [facility] [address] [place] [address] Wojciech Li MD Other chronic pain 11/04/2024 Refill [facility] [address] [place] [address] Yusra Ledezma RN Chronic midline low back pain without sciatica 11/04/2024 Patient Outreach [facility] [address] [place] [address] Wojciech Li MD Pre-visit Planning (SDOH screening was completed on 09/14/2024) 11/04/2024 Travel 11/03/2024 Telephone [facility] [address] [place] [address] Wojciech Li MD Chart Prep 10/26/2024 Telephone [facility] [address] [place] [address] Wojciech Li MD 10/05/2024 11:00 AM EST Office Visit [facility] [address] [place] [address] Wojciech Li MD Chronic midline low back pain without sciatica (Primary Dx); Pityriasis alba; Intractable left heel pain 10/05/2024 Telephone [facility] [address] [place] [address] Tory Chinchilla [place] Appointment Request 10/05/2024 Travel 10/02/2024 Refill [facility] [address] [place] [address] Dayanara Olmstead, Moderate persistent asthma without complication 09/30/2024 Telephone [facility] [address] [place] [address] Wojciech Li MD Chart Prep 09/29/2024 Refill [facility] [address] [place] [address] Dayanara Olmstead, Essential hypertension 09/28/2024 10:00 AM EST Nurse Only [facility] [address] [place] [address] 09/21/2024 Telephone [facility] [address] [place] [address] Yusra Ledezma, RN Appointment Request 09/20/2024 Telephone [facility] [address] [facility] [place] [address] Yusra Ledezma RN 09/20/2024 Telephone [facility] [address] [place] [address] Wojciech Li MD Med Refill 09/17/2024 Telephone [facility] [address] [place] [address] Wojciech Li MD Lab Orders 09/17/2024 Refill [facility] [address], [place] [address] Wojciech Li MD Other chronic pain 09/16/2024 Orders Only [facility] [address] [place] [address] Wojciech Li MD Low vitamin D level (Primary Dx) 09/16/2024 Refill [facility] [address] [facility] [place] [address] Wojciech Li MD Mixed hyperlipidemia 09/16/2024 Travel from Last 3 Months Immunizations Name Administration [...] with others, in a hotel, in a correction, living outside on the street, on a [...] 11:00 AM EST Office Visit [facility] [address] [place] [address] 01/06/2025 9:00 AM EDT Telemedicine [facility] [address] [place] [address] 01/13/2025 1:00 PM EDT Office Visit [facility] [address] [place] [address] Wojciech Li MD [address] [place] [address] 04/07/2025 2:30 PM EDT Office Visit [facility] [address] [place] [address] Tyra Mayer, OD [address] [place] [address] Health Maintenance Due Date Last Done Comments [...] 03/24/2014 Zoster Vaccines (1 of 2) 2020 Dental X-Ray: Full Mouth 04/28/2022 04/27/2019 COVID-19 Vaccine ( season) 2024 12/31/2022, 09/19/2021, 02/05/2021, Additional history exists Diabetes: Hemoglobin A1C 12/17/2024 024, 09/14/2024, 03/24/2024, Additional history exists Depression Monitoring (PHQ-9) 03/14/2025 09/14/2024, 09/14/2024 Tobacco Screening 09/09/2025 09/09/2024 Alcohol/Substance Use Screening 09/14/2025 09/14/2024 Depression Screening 09/14/2025 09/14/2024, 09/14/20 24 SDOH Screening 09/14/2025 09/14/2024 Diabetes: Urine Protein Screening 09/16/2025 09/16/2024, 07/15/2023, 01/16/2021 Lipid Panel 09/16/2025 09/16/2024, 06/27, 01/16/2021 Mammogram 11/18/2025 11/18/2024, 10/28, 08/05/2018 DTaP/Tdap/Td Vaccines (2 - Td or Tdap) 11/30/2025 11/30/2015 Colonoscopy 07/11/2026 07/11/2021 Colorectal Cancer Screening 07/11/2026 RSV Patients and Patients Aged 60 years or older (1 - 1-dose 75+ series) 2045 Influenza Vaccine Completed 09/28/2024, , 09/18/2021, Additional history exists Pneumococcal Vaccine: 50+ Years Completed 09/28/2024, 07/15/2013 HIB Vaccines Aged Out No longer eligi ble based on patient's age to complete this topic HPV Vaccines Aged Out No longer eligi ble based on patient's age to complete this topic IPV Vaccines Aged Out No longer eligi ble based on patient's age to complete this topic Meningococcal Vaccine Aged Out No nadja jenaro eligible based on patient's age to complete this topic RSV under 20 months Aged Out No longe r eligible based on patient's age to complete this topic Rotavirus Vaccines Aged Out No longer eligible based on patient's age to complete this topic Procedures Procedure Name Priority Date/Time Associated Diagnosis Comments CTA HEAD NECK W AND WO CONTRAST Routine 12/05/2024 4:56 AM EST URINALYSIS, COMPLETE, WITH REFLEX TO CULTURE Routine 12/05/2024 2:58 AM EST CULTURE, URINE, ROUTINE Routine 12/05/2024 2:58 AM EST XR CHEST 1 VIEW Routine 12/05/2024 2:45 AM EST COMPREHENSIVE METABOLIC PANEL Routine 12/05/2024 2:08 AM EST PROTHROMBIN TIME-INR Routine 12/05/2024 2:08 AM EST CBC WITH AUTO DIFFERENTIAL Routine 12/05/2024 2:08 AM EST SARS COV2/INFLUENZA A/B AND RSV RNA QL NAAT Routine 12/05/2024 2:08 AM EST GLUCOSE, WHOLE BLOOD Routine 12/05/2024 2:01 AM EST BI MAMMOGRAM SCREENING TOMOSYNTHESIS BILATERAL Routine 11/18/2024 11:45 AM EST Healthcare maintenance POCT GLUCOSE Routine 11/16/2024 11:08 AM EST Type 2 diabetes mellitus without complication, unspecified whether group home insulin use (CMS/HCC) MR LUMBAR SPINE WO [...] mellitus with other specified complication, unspecified whether predatory animal exterminator insulin use (CMS/HCC) HEMOGLOBIN A1C Routine 09/16/2024 6:49 AM EST Type 2 diabetes mellitus with other specified complication, unspecified whether group home insulin use (CMS/HCC) HEPATIC FUNCTION PANEL Routine 09/16/2024 6:49 AM EST Type 2 diabetes mellitus with other specified complication, unspecified whether group home insulin use (CMS/HCC) TSH Routine 09/16/2024 6:49 AM EST Type 2 diabetes mellitus with other specified complication, unspecified whether predatory animal exterminator insulin use (CMS/HCC) VITAMIN D,25-OH,TOTAL,IA Routine 09/16/2024 6:49 AM EST Type 2 diabetes mellitus with other specified complication, unspecified whether group home insulin use (CMS/HCC) T4, FREE Routine 09/16/2024 6:49 AM EST Type 2 diabetes mellitus with other specified complication, unspecified whether group home insulin use (CMS/HCC) ALBUMIN, RANDOM URINE W/CREATININE Routine 09/16/2024 6:48 AM EST Type 2 diabetes mellitus without complication, with long-term current use of insulin (CMS/HCC) HM COLONOSCOPY Routine 07/11/2021 10:40 AM EDT PROPHYLAXIS - ADULT Routine 07/14/2019 1 2:00 AM EDT INTRAORAL - COMPLETE SERIES OF RADIOGRAPHIC IMAGES Routine 04/27/2019 12:00 AM EDT PERIODIC ORAL EVALUATION - ESTABLISHED PATIENT Routine 04/27/2019 12:00 AM EDT from Last 3 Months or Most Recently Relevant to Health Maintenance Results * CTA Head Neck w/ and w/o Contrast (12/05/2024 4:56 AM EST) Anatomical Region Laterality Modality Head, Neck Computed Tomogra phy 12/05/2024 4:56 AM EST Narrative 12/05/2024 4:58 AM EST ? [facility] ?[address] ?[place] [address] ? CT Scan Report ? Signed ? Patient: Yefri,Brandie ?MR#: [id number] ?? [id number] ? : 1970 ?Acct:[id number] ? Age/Sex: 54 / F ?ADM Date: 12/05/24 ? Loc: HO.ED ? Attending Dr: ? Ordering Physician: Marta Barkley ?? Date of Service: 12/05/24 ?? Procedure(s): CT angio head neck ?? Accession Number(s): [id number] ? cc: Marta Barkley; [facility] ? Report Number: ?? [id number]: Total DLP = 2086.00 mGy-cm ? CLINICAL HISTORY: question left weakness ? CT head without contrast ? Comparison: 10/06/2020 ? Findings: ?? No intracranial mass, midline shift, hydrocephalus, or acute hemorrhage. ?? Visualized paranasal sinuses and mastoid air cells appear clear. The left ?? mastoid air cells appear underpneumatized. ?? No acute skull fracture. ? Impression: ?? 1. No acute intracranial abnormality. No acute intracranial hemorrhage. ? CT angiography head and neck with contrast. 3-D postprocessing ? Comparison: 10/06/2020 ? Findings: ? The bilateral common carotid arteries and cervical portions of the ?? internal carotid arteries appear patent without hemodynamically ?? significant stenosis. ?? The vertebral arteries appear patent bilaterally at the level of the neck. ?? No carotid or vertebral dissection is seen. There is no evidence of ?? vasculitis. ?? No focal consolidation or effusion identified within the visualized ?? portions of the bilateral lung apices. ? The intracranial vertebrobasilar system appears patent. Cerebellar and ?? posterior cerebral arteries are intact. ?? Intracranial internal carotid arteries appear patent. The bilateral ?? anterior and middle cerebral arteries appear patent. The right MCA is ?? stable in appearance as compared to the 10/06/2020 examination. ?? No aneurysms or abrupt cutoffs visualized. ? Impression: ?? 1. Patent bilateral carotid and vertebral arterial systems at the level of ?? the neck without hemodynamically significant stenosis. ?? 2. Patent anterior and posterior intracranial arterial circulation. No ?? large vessel occlusion identified. ? This document has been electronically signed by: Conor Martinez MD on ?? 12/05/2024 04:56:36 ? Dictated By: ?Conor Martinez MD ? Signed By: ?<Electronically signed by Conor Martinez MD in [place]> ? 12/05/24 0457 ? DD/ 5 ? TD/TT: 12/05/24455 ? Holistic Health Practitioner: ? Procedure Note Helen, Image - 12/05/[address] [place] [id number] [address] Scan Report Signed Patient: Toya Asif#: [id number] : 1970Acct:[id number] Age/Sex: 54 / FADM Date: 12/05/24 Loc: HO.ED Attending Dr: Ordering Physician: Marta Barkley Date of Service: 12/05/24 Procedure(s): CT angio head neck Accession Number(s): [id number] cc: aMrta Barkley; [facility] Report Number: [id number]: Total DLP = 2086.00 mGy-cm CLINICAL HISTORY: question left weakness CT head without contrast Comparison: 10/06/2020 Findings: No intracranial mass, midline shift, hydrocephalus, or acute hemorrhage. Visualized paranasal sinuses and mastoid air cells appear clear. The left mastoid air cells appear underpneumatized. No acute skull fracture. Impression: 1. No acute intracranial abnormality. No acute intracranial hemorrhage. CT angiography head and neck with contrast. 3-D postprocessing Comparison: 10/06/2020 Findings: The bilateral common carotid arteries and cervical portions of the internal carotid arteries appear patent without hemodynamically significant stenosis. The vertebral arteries appear patent bilaterally at the level of the neck. No carotid or vertebral dissection is seen. There is no evidence of vasculitis. No focal consolidation or effusion identified within the visualized portions of the bilateral lung apices. The intracranial vertebrobasilar system appears patent. Cerebellar and posterior cerebral arteries are intact. Intracranial internal carotid arteries appear patent. The bilateral anterior and middle cerebral arteries appear patent. The right MCA is stable in appearance as compared to the 10/06/2020 examination. No aneurysms or abrupt cutoffs visualized. Impression: 1. Patent bilateral carotid and vertebral arterial systems at the level of the neck without hemodynamically significant stenosis. 2. Patent anterior and posterior intracranial arterial circulation. No large vessel occlusion identified. This document has been electronically signed by: Conor Martinez MD on 12/05/2024 04:56:36 Dictated By: Conor Martinez MD Signed By: <Electronically signed by Conor Martinez MD in OV> 12/05/24 0457 DD/ 0456 TD/TT: 12/05/24 0456 Holistic Health Practitioner: [facility] External Provider IMG CT PROCEDURES Edited Result - Final * (ABNORMAL) Urinalysis, Complete, with Reflex to Culture (12/05/2024 2:58 AM EST) Color Urine Yellow [facility] Appearance Urine Clear [facility] PH 5.5 5.0 - 9.0 [facility] Glucose Urine UA Negative Negative mg/dL [facility] Urine Blood Small (1+)(A) Negative [facility] Specific Ward - Urine 1.015 1.005 - 1.025 [facility] Urine Protein Negative Neg-Trace mg/dL [facility] Urine Ketones Negative Negative mg/dL [facility] Nitrite Urine Negative Negative [facility] Leukocyte Esterase Urine Moderate (2+)(A) Negative [facility] RBC Urine 3-5(A) 0 - 2 /HPF [facility] Urine WBC >50(A) 0 - 5 /HPF [facility] Urine Squamous Epithelial Cell 3-5 0 - 2 /HPF [facility] Urine Bacteria Trace None Seen [facility] Hyaline Casts, Urine 0-2 0 - 2 /LPF [facility] 12/05/2024 2:58 AM EST 12/05/2024 3:02 AM EST Narrative [facility] - 12/05/2024 3:39 AM EST [id number], Clean Catch Generic External Data Provider LAB URINE ORDERAB LES Final Result Performing Organization Address City/[facility]/ZIP Co de Phone Number [facility] [address] [place] [phone] * Culture, Urine, Routine (12/05/2024 2:58 AM EST) Urine Urine specimen obtained by clean catch procedure / Unknown 12/05/2024 2:58 AM EST 12/05/2024 3:42 AM EST Comment:[facility] Narrative [facility] - 12/06/2024 9:02 AM EST Urine Culture No growth. Specimen Source: Urine clean catch Generic External Data Provider LAB MICROBIOLOGY - GENERAL ORDERABLES Final Result Performing Organization Address City/[facility] Co de Phone Number [facility] [address] [place] [phone] * XR Chest 1 View (12/05/2024 2:45 AM EST) Anatomical Region Laterality Modality Chest Radiographic Tammie ging 12/05/2024 2:45 AM EST Narrative 12/05/2024 2:47 AM EST ? [facility] ?[address] ?[place] [address] ?XRay Report ? Signed ? Patient: Yefri,Brandie ?MR#: [id number] ?? 0772 ? : 1970 ?Acct:[id number] ? Age/Sex: 54 / F ?ADM Date: 12/05/24 ? Loc: HO.ED ? Attending Dr: ? Ordering Physician: Romero Gastelum MD ?? Date of Service: 12/05/24 ?? Procedure(s): XR chest 1V ?? Accession Number(s): [id number] ? cc: [facility]; Romero Gastelum MD ? CLINICAL HISTORY: cough ? 1 view chest x-ray. ? Comparison: CR/SR - XR CHEST 2V - 09/09/24 11:24 EST ? Findings: ?? No consolidation, pneumothorax, or effusion. Heart size normal. ? Impression: ?? 1. No acute cardiopulmonary process. No focal pulmonary consolidation. ? This document has been electronically signed by: Conor Martinez MD on ?? 12/05/2024 02:45:18 ? Dictated By: ?Conor Martinez MD ? Signed By: ?<Electronically signed by Conor Martinez MD in OV> ? 12/05/246 ? DD/ 4 ? TD/TT: 12/05/24244 ? Holistic Health Practitioner: ? Procedure Note Helen, Image - 12/05/2024 [place] [address] XRay Report Signed Patient: Toya Asif#: [id number] : 1970Acct:[id number] Age/Sex: 54 / FADM Date: 12/05/24 Loc: HO.ED Attending Dr: Ordering Physician: Romero Gastelum MD Date of Service: 12/05/24 Procedure(s): XR chest 1V Accession Number(s): [id number] cc: [facility]; Romero Gastelum MD CLINICAL HISTORY: cough 1 view chest x-ray. Comparison: CR/SR - XR CHEST 2V - 09/09/24 11:24 EST Findings: No consolidation, pneumothorax, or effusion. Heart size normal. Impression: 1. No acute cardiopulmonary process. No focal pulmonary consolidation. This document has been electronically signed by: Conor Martinez MD on 12/05/2024 02:45:18 Dictated By: Conor Martinez MD Signed By: <Electronically signed by Conor Martinez MD in OV> 12/05/24245 DD/ 4 TD/TT: 12/05/24244 Holistic Health Practitioner: [facility] External Provider IMG XR PROCEDURES Edited Result - Final * SARS-CoV-2 RNA, Influenza A/B, and RSV RNA, Ql NAAT (12/05/2024 2:08 AM EST) [facility] Influenza A PCR NEGATIVE Negative [facility] Influenza B PCR NEGATIVE Negative [facility] Resp Syncy Virus RNA Qual PCR NEGATIVE Negative [facility] SARS COV2 PCR NEGATIVE Negative [facility] Comment:All test results mus t be correlated with clinical findings.Negative results do not preclude SARS-CoV2, influenza Avirus, influenza B virus and/or RSV infectionand should not be used as the sole basis for treatment orother patient management decisions. Negative results must becombined with clinical observations, patient history, andepidemiological information.This test has not been evaluated for monitoring treatment ofinfection.This test has been authorized by the FDA under an EmergencyUse Authorization (EUA) for use by authorized laboratories.Testing performed on the better. GeneXpert utilizingreal-time RT-PCR.All SARS CoV2 and positive influenza A/B results arereported to [facility]. 12/05/2024 2:08 AM EST 12/05/2024 2:13 AM EST Generic External Data Provider LAB MICROBIOLOGY - GENERAL ORDERABLES Final Result [facility] [address] [place] [phone] * (ABNORMAL) CBC auto differential (12/05/2024 2:08 AM EST) Pathologist [facility] White Blood Count 8.8 4.8 - 10.8 X10*3/uL [facility] Red Blood Count 4.46 4.20 - 5.50 X10*6/uL [facility] Hemoglobin 14.2 12.0 - 16.0 g/dl [facility] Hematocrit 39.6 37.0 - 47.0 % [facility] Mean Corpuscular Volume 88.8 80.0 - 98.0 fL [facility] Mean Corpuscular Hemoglobin 31.8 27.0 - 33.0 pg [facility] Mean Corpuscular HGB Conc 35.9(H) 31.0 - 35.0 g/dl [facility] Red Cell Distribution Width 12.6 11.0 - 16.0 % [facility] Platelet Count 300 160 - 400 X10*3/uL [facility] Mean Platelet Volume 10.5 9.4 - 12.3 fL [facility] Neutrophils Percent Auto 55.5 45 - 73 % [facility] Imm Gran Pct Auto 0.3 0.0 - 0.4 % [facility] Lymphocytes Percent Auto 35.3 20 - 40 % [facility] Monocytes Percent Auto 6.3 2 - 11 % [facility] Eosinophils Percent Auto 2.3 0 - 4 % [facility] Basophils Percent Auto 0.3 0 - 2 % [facility] NRBC Pct Auto 0.0 0.0 - 0.2 /100WBC [facility] Neutrophils Absolute Auto 4.9 2.0 - 8.3 x10*3/uL [facility] Imm Gran Abs Auto 0.03 0.00 - 0.03 X10*3/uL [facility] Lymphocytes Absolute Auto 3.1 1.2 - 4.9 X10*3/uL [facility] Monocytes Absolute Auto 0.6 0.1 - 1.2 X10*3/uL [facility] Eosinophils Absolute Auto 0.2 0.0 - 0.4 X10*3/uL [facility] Basophils Absolute Auto 0.0 0.0 - 0.2 X10*3/uL [facility] NRBC Abs Auto 0.000 0.0 - 0.012 X10*3/uL [facility] 12/05/2024 2:08 AM EST 12/05/2024 2:13 AM EST Generic External Data Provider LAB BLOOD ORDERAB LES Final Result Performing Organization Address [facility] Co de Phone Number [facility] [address] [place] [phone] * Prothrombin Time-INR (12/05/2024 2:08 AM EST) Prothrombin Time 11.7 10.9 - 12.4 SEC [facility] INTERNATIONAL NORM RATIO 1.0 0.9 - 1.1 [facility] Comment:INTERNATIONAL NORMAL IZED RATIO (INR) REFERENCE RANGES Reference RangeFor patients not on anticoagulant therapy: 0.9 - 1.1INR ranges for oral anticoagulanttherapy:For prevention and treatment of venous thrombosis and pulmonary embolism: 2.0 - 3.0For acute myocardial infarction with aspirin therapy: 2.0 - 3.0For acute myocardial infarction without aspirin therapy: 3.0 - 4.0For patients with mechanical prosthetic heart valves: 2.5 - 3.5 12/05/2024 2:08 AM EST 12/05/2024 2:13 AM EST Generic External Data Provider LAB BLOOD ORDERAB LES Final Result Performing Organization Address [facility] Co de Phone Number [facility] [address] [place] [phone] * (ABNORMAL) Comprehensive Metabolic Panel (12/05/2024 2:08 AM EST) Only the most recent of2 resultswithin the time period is included. Sodium 141 135 - 145 mmol/L [facility] Potassium 3.7 3.3 - 5.1 mmol/L [facility] Chloride 106 96 - 108 mmol/L [facility] Carbon Dioxide 23 22 - 29 mmol/L [facility] Anion Gap 16 12 - 20 [facility] Urea Nitrogen (BUN) 18(H) 9 - 16 mg/dL [facility] Creatinine, Serum 0.77 0.5 - 1.4 mg/dL [facility] Creatinine Clr Calc Pharmacy 87.9 [facility] Comment:Provided height and weight: 162.56 cm,84.7 kg.eGFR (calculated from the MDRD study equation) and eCrCl(calculated from the Cockcroft-Gault equation) are based ondifferent parameters and may not yield comparable results.If eCrCl result is absurd, please check patient'sheight/weight. Estimated Glomerular Filt Rate >60 [facility] Comment:Chronic Kidney Disea se: Estimated GFR < 60 mL/min/1.33i8Zmytii Kidney Disease: Estimated GFR < 15 mL/min/1.73m2 Glucose 130(H) 60 - 115 mg/dL [facility] Calcium 9.9 8.4 - 10.2 mg/dL [facility] Bilirubin, Total 0.3 0.0 - 1.0 mg/dL [facility] Aspartate Amino Transferase 31 5 - 31 U/L [facility] Alanine Aminotransferase 41(H) 0 - 31 U/L [facility] Total Protein 8.4(H) 6.5 - 8.0 g/dL [facility] Albumin Level 4.4 3.5 - 5.0 g/dL [facility] Alkaline Phosphatase 134(H) 39 - 117 U/L [facility] 12/05/2024 2:08 AM EST 12/05/2024 2:13 AM EST us Generic External Data Provider LAB BLOOD ORDERAB LES Final Result [facility] [address] [place] [phone] * (ABNORMAL) Glucose, Whole Blood (12/05/2024 2:01 AM EST) Glucose, Whole Blood 136(H) 60 - 115 mg/dL [facility] Comment:METER #: [id number] 12/05/2024 2:01 AM EST 12/05/2024 2:06 AM EST us Generic External Data Provider LAB BLOOD ORDERAB LES Final Result [facility] [address] [facility] [place] [phone] * BI Mammogram Screening Tomosynthesis Bilateral (11/18/2024 11:45 AM EST) Anatomical Region Laterality Modality Breast Bilateral Mammography 11/18/2024 11:4 5 AM EST Narrative 11/29/2024 9:48 AM EST ? [facility] ? [address] ?[place] [address] ? Mammography Report ? Signed ? Patient: Yefri,Brandie ?MR#: [id number] ?? 0772 ? : 1970 ?Acct:[id number] ? Age/Sex: 54 / F ?ADM Date: 11/18/24 ? Loc: HO.MAMMO ? Attending Dr: Wojciech Kinsey MD ? Ordering Physician: Wojciech Kinsey MD ?Resu ?? lts: 1Negative ? Date of Service: 11/18/24 ?Follow Up: 1 Year From Orig ?? inal Mammogram ? Procedure(s): MM tomosynthesis screening BI ?? Accession Number(s): [id number] ? cc: Wojciech Kinsey MD ? EXAMINATION: ?? MM SCREENING DIGITAL BREAST TOMOSYNTHESIS, BILATERAL ? CLINICAL INFORMATION: ? Screening. Asymptomatic. ? COMPARISON: ?? Mammography: Comparison is made with available priors ? TECHNIQUE: ?? Digital breast mammography with tomosynthesis is performed in both the ?? craniocaudal and mediolateral oblique views along with computer-aided ?? detection (CAD). ? FINDINGS: ?? There are scattered areas of fibroglandular density (ACR BI-RADS breast ?? composition Category b). ? There are no significant masses, abnormal calcifications, or other ?? abnormalities. ? MM/MM tomosynthesis screening BI ?? IMPRESSION: ?? No mammographic evidence of malignancy. ? ASSESSMENT: ? BI-RADS BI-RADS 1 - Negative ? RECOMMENDATION: ?? Routine annual mammography screening. ? 1 year F/U ? This examination should not preclude the clinical evaluation of a ?? suspicious palpable abnormality. ? This patient's information was entered into a reminder system with a ?? target due date for their next mammogram. ? Electronically signed by: ??Nasrin Li DO ??11/29/2024 09:45 AM EST ? Dictated By: ?Nasrin Li DO ? Signed By: ?<Electronically signed by Nasrin Li DO in OV> ? 11/29/24 0945 ? DD/ 1145 ? TD/TT: 11/18/24 1210 ? Holistic Health Practitioner: ? Procedure Note Helen, Image - 11/29/2024 [facility] [address] [place] [address] Dr. [place], [place] [address] Mammography Report Signed Patient: Toya Asif#: [id number] : 1970Acct:[id number] Age/Sex: 54 / FADM Date: 11/18/24 Loc: XU Attending Dr: Wojciech Kinsey MD Ordering Physician: Wojciech Kinsey MDResu lts: 1Negative Date of Service: 11/18/24Follow Up: 1 Year From Orig inal Mammogram Procedure(s): MM tomosynthesis screening BI Accession Number(s): [id number] cc: Wojciech Kinsey MD EXAMINATION: MM SCREENING DIGITAL BREAST TOMOSYNTHESIS, BILATERAL CLINICAL INFORMATION: Screening. Asymptomatic. COMPARISON: Mammography: Comparison is made with available priors TECHNIQUE: Digital breast mammography with tomosynthesis is performed in both the craniocaudal and mediolateral oblique views along with computer-aided detection (CAD). FINDINGS: There are scattered areas of fibroglandular density (ACR BI-RADS breast composition Category b). There are no significant masses, abnormal calcifications, or other abnormalities. MM/MM tomosynthesis screening BI IMPRESSION: No mammographic evidence of malignancy. ASSESSMENT: BI-RADS BI-RADS 1 - Negative RECOMMENDATION: Routine annual mammography screening. 1 year F/U This examination should not preclude the clinical evaluation of a suspicious palpable abnormality. This patient's information was entered into a reminder system with a target due date for their next mammogram. Electronically signed by: Nasrin Li DO 11/29/2024 09:45 AM EST Dictated By: Nasrin Li DO Signed By: <Electronically signed by Nasrin Li DO in OV> 11/29/24 0945 DD/ 1145 TD/TT: 11/18/24 1210 Holistic Health Practitioner: Wojciech Carver MD IMG BI PROCEDURES Fin al Result * POCT Glucose (11/16/2024 11:08 AM EST) Glucose Blood, POC 86 60 - 200 mg/dL QC Media Lot # [id number] Lot# Expiration Date [id number] Blood Capillary blood specimen / Unknown 11/16/2024 11:08 AM EST Wojciech Penny Mehul MD POINT OF CARE TEST EN TER/EDIT ORDERABLES Final Result * MR Lumbar Spine w/o Contrast (11/07/2024 8:54 AM EST) Anatomical Region Laterality Modality Spine, L-spine Magnetic Resonan ce 11/07/2024 8:54 AM EST Narrative 11/09/2024 9:44 AM EST ? [facility] ?[address] ?[place] [address] ? Magnetic Resonance Report ? Signed ? Patient: Yefri,Brandie ?MR#: [id number] ?? 0772 ? : 1970 ?Acct:[id number] ? Age/Sex: 54 / F ?ADM Date: 11/07/24 ? Loc: HO.MRI ? Attending Dr: Wojciech Kinsey MD ? Ordering Physician: Wojciech Kinsey MD ?? Date of Service: 11/07/24 ?? Procedure(s): MR lumbar spine wo con ?? Accession Number(s): [id number] ? cc: Wojciech Kinsey MD ? EXAMINATION: [...] MD in OV> ? 11/09/24 0941 ? DD/ 0854 ? TD/TT: 11/07/24 0907 ? Holistic Health Practitioner: ? Procedure Note Hector Cervantes - 11/09/[address] [place] [address] Magnetic Resonance Report Signed Patient: Toya Asif#: [id number] : 1970Acct:[id number] Age/Sex: 54 / FADM Date: 11/07/24 Loc: HO.MRI Attending Dr: Wojciech Kinsey MD Ordering Physician: Wojciech Kinsey MD Date of Service: 11/07/24 Procedure(s): MR lumbar spine wo con Accession Number(s): [id number] cc: Wojciech Kinsey MD EXAMINATION: MR LUMBAR [...] Kwadwo Barahona MDin OV> 11/09/24 0941 DD/ TD/TT: 11/07/24906 Holistic Health Practitioner: Wojciech Carver MD IMG MRI PROCEDURES Fi nal Result * POCT [place]-14 Urine Drug Screen (11/04/2024 1:22 PM EST) Urine Urine specimen obtained by clean catch procedure / Unknown 11/04/2024 1:22 PM EST Narrative Yusra Ledezma RN - 11/04/2024 1:22 PM EST negative for THC, MOP, OXY, LEIGHTON, MET, AMP, BZO, BAR, MTD, BUPG, TCA, MDMA, PCP, PPX. Lot# [id number] Exp: 10-02-25 Wojciech Carver MD POINT OF CARE TEST EN TER/EDIT ORDERABLES Final Result * (ABNORMAL) Vitamin D, 25-Hydroxy, Total, Immunoassay (09/16/2024 6:49 AM EST) Vitamin D 25-OH Total 26.9(L) >30 ng/mL [facility] Comment:Health Based Referen ce Values*< 20 ng/mL Ohjwcqpae12-31 ng/mL Insufficient> 30 ng/mL Sufficient*Olga AMADOR. N [...] DO LAB BLOOD ORDERABLES Final R esult [facility] [address] [place] [address] [phone] * (ABNORMAL) CBC (09/16/2024 6:49 AM EST) White Blood Count 11.7(H) 4.8 - 10.8 X10*3/uL [facility] Red Blood Count 4.40 4.20 - 5.50 X10*6/uL [facility] Hemoglobin 13.9 12.0 - 16.0 g/dl [facility] Hematocrit 38.4 37.0 - 47.0 % [facility] Mean Corpuscular Volume 87.3 80.0 - 98.0 fL [facility] Mean Corpuscular Hemoglobin 31.6 27.0 - 33.0 pg [facility] Mean Corpuscular HGB Conc 36.2(H) 31.0 - 35.0 g/dl [facility] Red Cell Distribution Width 12.4 11.0 - 16.0 % [facility] Platelet Count 444(H) 160 - 400 X10*3/uL [facility] Mean Platelet Volume 9.5 9.4 - 12.3 fL [facility] NRBC Pct Auto 0.0 0.0 - 0.2 /100WBC [facility] NRBC Abs Auto 0.000 0.0 - 0.012 X10*3/uL [facility] Blood Venous blood specimen / Unknown 09/16/2024 6:49 AM EST 09/16/2024 6:49 AM EST Dayanara Aysha DO LAB BLOOD ORDERABLES Final R esult Performing Organization Address City/[facility]/ZIP Co de Phone Number [facility] [address] [place] [phone] * TSH (09/16/2024 6:49 AM EST) Thyroid Stimulating Hormone 1.72 0.32 - 4.0 uIU/mL [facility] Comment:TSH 3rd Generation ( [employer]) Blood Venous blood specimen / Unknown 09/16/2024 6:49 AM EST 09/16/2024 6:49 AM EST Dayanara Olmstead DO LAB BLOOD ORDERABLES Final R esult Performing Organization Address [facility]/ZIP Co de Phone Number [facility] [address] [place] [phone] * T4, Free (09/16/2024 6:49 AM EST) Free T4 (Free Thyroxine) 1.06 0.71 - 1.85 ng/dL [facility] Blood Venous blood specimen / Unknown 09/16/2024 6:49 AM EST 09/16/2024 6:49 AM EST Dayanara Aysha DO LAB BLOOD ORDERABLES Final R esult Performing Organization Address City/[facility] Co de Phone Number [facility] [address] [place] [phone] * (ABNORMAL) Hemoglobin A1c (09/16/2024 6:49 AM EST) Hemoglobin A1c 6.7(H) <6.0 % [facility] Comment:Hemoglobin A1C Refer ence Range Adults: 4.8 - 6.0 % Non diabetic: < 6.0 % Goal: < 7.0 %Additional Action Suggested: > 8.0 %Note: Hemoglobin A1c results are invalid for patients with abnormal amounts of HbF. Blood transfusions may impact the HbA1c concentration in the patient sample. Estimated Average Glucose 146 mg/dL [facility] Comment:eAG = Estimated ave rage glucose which is %A1C expressed asaverage glucose, using the formula of the U2Z-NglvahzRvpvxcj Glucose study (ADAG), Diabetes Care, Vol.31,#8,2007 Blood Venous blood specimen / Unknown 09/16/2024 6:49 AM EST 09/16/2024 6:49 AM EST Dayanara Olmstead LAB BLOOD ORDERABLES Final R esult Performing Organization Address City/[facility]/ZIP Co de Phone Number [facility] [address] [place] [phone] * Hepatic Function Panel (09/16/2024 6:49 AM EST) Bilirubin, Direct 0.1 0.0 - 0.5 mg/dL [facility] Blood Venous blood specimen / Unknown 09/16/2024 6:49 AM EST 09/16/2024 6:49 AM EST Dayanara Olmstead DO LAB BLOOD ORDERABLES Final R esult [facility] [address] [place] [phone] * (ABNORMAL) Lipid Panel, Standard (09/16/2024 6:49 AM EST) Triglycerides 395(H) <150 mg/dL [facility] Comment:Desirable Triglyceri de: less than 150 mg/dLBorderline High Triglyceride 150-199 mg/dLHigh Triglyceride: 200-499 mg/dLVery High Triglyceride: greater than or equal to 5OO mg/dL Cholesterol 184 <200 mg/dL [facility] Comment:Desirable Cholestero l: less than 200 mg/dLBorderline High Cholesterol: 200-239 mg/dLHigh Cholesterol: greater than 239 mg/dL LDL Cholesterol Calculated 69 <100 mg/dL [facility] Comment:Desirable LDL: less than 100 mg/dLNear Optimal/Above Optimal LDL: 110- 129 mg/dLBorderline High LDL: 130-159 mg/dLHigh LDL: 160-189 mg/dLVery High LDL: greater than or equal to 190 mg/dL HDL Cholesterol 36(L) >40 mg/dL [facility] Comment:Desirable HDL: great er than 40 mg/dL Note: This HDL assay may give artificially low results in patients with liver disease. Blood Venous blood specimen / Unknown 09/16/2024 6:49 AM EST 09/16/2024 6:49 AM EST Wojciech Carver MD LAB BLOOD ORDERABLES Final Result Performing Organization Address City/[facility]/ZIP Co de Phone Number [facility] [address] [place] [phone] * (ABNORMAL) Albumin, Random Urine W/Creatinine (09/16/2024 6:48 AM EST) Creatinine, Urine 199.57 mg/dL [facility] Microalbumin Urine 76.0 mg/L [facility] Microalbum Creatinine Ratio Ur 38.0(H) <30 ug/mg cr [facility] Comment:Albumin/Creatinine R atio Reference Ranges: Normal: < 30 ug/mg creatinine Microalbuminuria: 30 - 300 ug/mg creatinineClinical Albuminuria: > 300 ug/mg creatinine Urine (Urine, Random) 09/16/2024 6:48 AM EST 09/16/2024 7:29 AM EST Wojciech Carver MD LAB URINE ORDERABLES Final Result Performing Organization Address City/[facility]/ZIP Co de Phone Number [facility] [address] [place] [phone] * Hm Colonoscopy (07/11/2021 10:40 AM EDT) us Historical Provider MD HEALTH MAINTENANCE Final Result from Last 3 Months or Most Recently Relevant to Health Maintenance Insurance [place] [facility] MEDICAID STAND ADULT Care Teams Weld Inspector Relationship Specialty Start Date End Date Wojciech Li MD [address] [place] [phone] PCP - General Internal Medicine 04/12/24
--- OUTSIDE RECORDS SUMMARY | 2024-12-17 11:49 | XMS_ITS | Encounter Summary ---
Author Organization [employer] Address [address] 7t [place] [address] Care Team Providers Care Geotechnicial Properties Technician Name Role Phone Wojciech Li MD Primary Care Provide r Reason for Visit * Reason Onset Date Comments Appointment Request 06/08/2024 Encounter Details Date Type Department Care Team ([facility] st Contact Info) Description 06/08/2024 Telephone [facility] MEDICINE [address] [place] [address] Wojciech Li MD [address] [place] [address] Appointment Request Social History Tobacco Use Types [...] * Telephone Encounter - Shay Edwards - 06/08/2024 1:08 PM EDT Tc from pt calling in regards to appt 06/10 stating she will not be able to make It. Pt is requesting to change it to a telephone visit or to reschedule. Please contact pt at [phone]. (French Speaker) documented in this encounter Plan of Treatment Upcoming Encounters Date Type Department Care Team (Late st Contact Info) Description 12/21/2024 11:00 AM EST Office Visit [facility] MEDICINE [address] [place] [address] 01/06/2025 9:00 AM EDT Telemedicine [facility] MEDICINE [address] [place] [address] 01/13/2025 1:00 PM EDT Office Visit [facility] MEDICINE [address] [place] [address] Wojciech Li MD [address] [place] [address] 04/07/2025 2:30 PM EDT Office Visit [facility] OPTOMETRY [address] [place] [address] Tyra Mayer, OD 230 [place] [address] documented as of this encounter Visit Diagnoses Not on filedocumented in this encounter Additional Health Concerns Assessment Noted Time PHQ-9 Depression Total Score: 0 06/10/20 23 10:47 AM EDT documented as of this encounter Care Teams Geotechnicial Properties Technician Relationship Specialty Start Date End Date Wojciech Li MD [address] [place] [address] PCP - General Internal Medicine 04/12/24 documented as of this encounter
--- OUTSIDE RECORDS SUMMARY | 2024-12-17 11:49 | XMS_ITS | Encounter Summary ---
Author Organization [employer] Address [address] [facility] 7t [place] [address] Care Team Providers Care Steel Pourer Name Role Phone Wojciech Li MD Primary Care Provide r Reason for Visit * Reason Onset Date Comments Med Refill 09/20/2024 Encounter Details Date Type Department Care Team ([facility] st Contact Info) Description 09/20/2024 Telephone [facility] MEDICINE [address] [place] [address] Wojciech Li MD [address] [place] [address] Med Refill Social History Tobacco Use Types [...] with others, in a hotel, in a care home, living outside on the street, on a [...] to Hydrocodone 5-325. Please contact pt at [phone]. (Khmer Speaker) documented in this encounter Plan of Treatment Upcoming Encounters Date Type Department Care Team ([facility] st Contact Info) Description 12/21/2024 11:00 AM EST Office Visit [facility] MEDICINE [address] [place] [address] 01/06/2025 9:00 AM EDT Telemedicine [facility] MEDICINE [address] [place] [address] 01/13/2025 1:00 PM EDT Office Visit [address] [address] Wojciech Li MD [address] [place] [address] 04/07/2025 2:30 PM EDT Office Visit [facility] OPTOMETRY [address], [place] [address] Tyra Mayer, OD 230 [place], [place] [phone] documented as of this encounter Visit Diagnoses Not on filedocumented in this encounter Additional Health Concerns Assessment Noted Time PHQ-9 Depression Total Score: 9 09/14/20 24 1:06 PM EST documented as of this encounter Care Teams Steel Pourer Relationship Specialty Start Date End Date Wojciech Li MD [address] [place], [place] [phone] PCP - General Internal Medicine 04/12/24 documented as of this encounter
--- OUTSIDE RECORDS SUMMARY | 2024-12-17 11:49 | XMS_ITS | Encounter Summary ---
Author Organization [employer] Address [address] 7[address] [place] [address] Care Team Providers Care Power Saw Mechanic Name Role Phone Wojciech Li MD Primary Care Provide r Wojciech Li MD Primary Care Provide r Wojciech Li MD Primary Care Provide r Encounter Details Date Type Department Care Team (Late st Contact Info) Description 01/06/2023 Orders Only [facility] CHC MED & PEDS [address] [place] [address] Dayanara Jiménez LPN Social History Tobacco Use [...] Office Visit [facility] MEDICINE [address] [place] [address] 01/06/2025 9:00 AM EDT Telemedicine [facility] MEDICINE [address] [place] [address] 01/13/2025 1:00 PM EDT Office Visit [facility] MEDICINE [address] [place] [address] Wojciech Li MD [address] [place] [address] 04/07/2025 2:30 PM EDT Office Visit [facility] OPTOMETRY [address] [facility] [address] Moreno, Tyra, OD [address] [place] [address] documented as of this encounter Visit Diagnoses Not on filedocumented in this encounter Care Teams Power Saw Mechanic Relationship Specialty Start Date End Date Wojciech Li MD [address] [place] [address] PCP - General Internal Medicine 06/01/14 03/04/24 Wojciech Li MD [address] [place] [address] PCP - General Internal Medicine 03/12/24 03/12/24 [place] [address] PCP - General Internal Medicine 04/12/24 documented as of this encounter
--- OUTSIDE RECORDS SUMMARY | 2024-12-17 11:49 | XMS_ITS | Encounter Summary ---
Author Organization [employer] Address [address] [facility] 7t [place] [address] Care Team Providers Care Shellac Polisher Name Role Phone Wojciech Li MD Primary Care Provide r Wojciech Li MD Primary Care Provide r Wojciech Li MD Primary Care Provide r Reason for Visit * Reason Comments Med Refill Encounter Details Date Type Department Care Team (Late st Contact Info) Description 07/15/2023 Refill [facility] CHC MED & PEDS [address] [place], [place] [phone] Wojciech Li MD 230 [place], [place] [phone] Type 2 diabetes mellitus without complication, unspecified whether termite technician insulin use ([facility]) Social History Tobacco Use Types [...] 11:00 AM EST Office Visit [facility] MEDICINE [address] [facility] [place] [address] 01/06/2025 9:00 AM EDT Telemedicine [facility] MEDICINE [address] [facility] [place] [address] 01/13/2025 1:00 PM EDT Office Visit [facility] MEDICINE [address] [facility] [place] [address] Wojciech Li MD [address] [facility] [place] [address] 04/07/2025 2:30 PM EDT Office Visit [facility] OPTOMETRY [address] [facility] [address] [address] [facility] [place] [address] Moreno, Tyra, OD [address] [place] [address] documented as of this encounter Visit Diagnoses Diagnosis Type 2 diabetes mellitus without complication, unspecified whether care home insulin use ([facility]) documented in this encounter Additional Health Concerns Assessment Noted Time PHQ-9 Depression Total Score: 0 06/10/20 23 10:47 AM EDT documented as of this encounter Care Teams Shellac Polisher Relationship Specialty Start Date End Date [place] [address] PCP - General Internal Medicine 06/01/14 03/04/24 Wojciech Li MD [facility] [place] [address] PCP - General Internal Medicine 03/12/24 03/12/24 Wojciech Li MD [place] [facility] [place] [address] PCP - General Internal Medicine 04/12/24 documented as of this encounter
--- OUTSIDE RECORDS SUMMARY | 2024-12-17 11:49 | XMS_ITS | Encounter Summary ---
Author Organization [employer] Address [address] 7[address] [place] [address] Care Team Providers Care Spiral Runner Name Role Phone Wojciech Li MD Primary Care Provide r Wojciech Li MD Primary Care Provide r Wojciech Li MD Primary Care Provide r Encounter Details Date Type Department Care Team (Late st Contact Info) Description 12/13/2022 Orders Only [facility] CHC MED & PEDS [address] [place] [address] Dayanara Jiménez LPN Social History Tobacco Use [...] 11:00 AM EST Office Visit [facility] MEDICINE [address] [place] [address] 01/06/2025 9:00 AM EDT Telemedicine [facility] MEDICINE [address] [place] [address] 01/13/2025 1:00 PM EDT Office Visit [facility] MEDICINE [address] [place] [address] Wojciech Li MD [address] [place] [address] 04/07/2025 2:30 PM EDT Office Visit [facility] OPTOMETRY [address] [facility] [place] [address] Moreno, Tyra, OD [address] [place] [address] documented as of this encounter Visit Diagnoses Not on filedocumented in this encounter Care Teams Spiral Runner Relationship Specialty Start Date End Date Wojciech Li MD [address] [place] [address] PCP - General Internal Medicine 06/01/14 03/04/24 Wojciech Li MD [address] [place] [address] PCP - General Internal Medicine 03/12/24 03/12/24 [place] [address] PCP - General Internal Medicine 04/12/24 documented as of this encounter
--- OUTSIDE RECORDS SUMMARY | 2024-12-17 11:49 | XMS_ITS | Encounter Summary ---
Author Organization [employer] Address [address] [facility] 7t [place] [address] Care Team Providers Care Project Engineering Director Name Role Phone Wojciech Li MD Primary Care Provide r Wojciech Li MD Primary Care Provide r Wojciech Li MD Primary Care Provide r Encounter Details Date Type Department Care Team (Latest Contact Info) Description 07/19/2019 Abstract [facility] Dental, Provider, DDS Social History Tobacco [...] Description 12/21/2024 11:00 AM EST Office Visit [facility] MEDICINE [address] [place] [address] 01/06/2025 9:00 AM EDT Telemedicine [facility] [address] [place] [address] 01/13/2025 1:00 PM EDT Office Visit [facility] MEDICINE [address] [place] [address] Wojciech Li MD [address] [place] [address] 04/07/2025 2:30 PM EDT Office Visit [facility] OPTOMETRY [address] [place], [place] [phone] Tyra Mayer, OD [address] [place] [address] documented as of this encounter Visit Diagnoses Not on filedocumented in this encounter Care Teams Project Engineering Director Relationship Specialty Start Date End Date Wojciech Li MD [address] [place], [place] [phone] PCP - General Internal Medicine 06/01/14 03/04/24 Wojciech Li MD [address] [place], [place] [phone] PCP - General Internal Medicine 03/12/24 03/12/24 Wojciech Li MD [address] [place] [address] PCP - General Internal Medicine 04/12/24 documented as of this encounter
--- OUTSIDE RECORDS SUMMARY | 2024-12-17 11:49 | XMS_ITS | Encounter Summary ---
Author Organization [employer] Address [address] [facility] 7t [place] [address] Care Team Providers Care Warehouse Logistics Coordinator Name Role Phone Wojciech Li MD Primary Care Provide r Wojciech Li MD Primary Care Provide r Wojciech Li MD Primary Care Provide r Reason for Visit * Reason Comments Med Refill Encounter Details Date Type Department Care Team (Late st Contact Info) Description 01/09/2023 Refill [facility] CHC MED & PEDS [address] [place] [address] [facility] [address] [place] [address] Shortness of breath Social History Tobacco Use [...] 11:00 AM EST Office Visit [facility] MEDICINE [address] [place] [address] 01/06/2025 9:00 AM EDT Telemedicine [facility] MEDICINE [address] [place] [address] 01/13/2025 1:00 PM EDT Office Visit [facility] MEDICINE [address] [facility] [place] [address] Wojciech Li MD [address] [place] [address] 04/07/2025 2:30 PM EDT Office Visit [facility] OPTOMETRY [address] [facility] [place] [address] Tyra Mayer, OD [address] [place] [address] documented as of this encounter Visit Diagnoses Diagnosis Shortness of breath documented in this encounter Care Teams Warehouse Logistics Coordinator Relationship Specialty Start Date End Date Wojciech Li MD [address] [place] [address] PCP - General Internal Medicine 06/01/14 03/04/24 [place] [address] PCP - General Internal Medicine 03/12/24 03/12/24 [place] [address] PCP - General Internal Medicine 04/12/24 documented as of this encounter
--- OUTSIDE RECORDS SUMMARY | 2024-12-17 11:49 | XMS_ITS | Encounter Summary ---
Author Organization [employer] Address [address] [facility] 7t [place] [address] Care Team Providers Care Slab Grinder Name Role Phone Wojciech Li MD Primary Care Provide r Wojciech Li MD Primary Care Provide r Wojciech Li MD Primary Care Provide r Reason for Visit * Reason Onset Date Comments Durable Medical Equipment 01/10/2023 Encounter Details Date Type Department Care Team (Late st Contact Info) Description 01/10/2023 Telephone [facility] MEDICINE [address] [place], [place] [phone] Wojciech Li MD [address] [place], [place] [phone] Durable Medical Equipment Social History Tobacco Use [...] 9:17 AM EDT Tc from Adriana with [facility] requesting a Walker with the seat, for pt regarding pt back injury, surgery back in February of spine. Please contact Adriana [phone] documented in this encounter Plan of Treatment Upcoming Encounters Date Type Department Care Team (Late st Contact Info) Description 12/21/2024 11:00 AM EST Office Visit [facility] MEDICINE [address] [place] [address] 01/06/2025 9:00 AM EDT Telemedicine [facility] MEDICINE [address] [place] [address] 01/13/2025 1:00 PM EDT Office Visit [facility] MEDICINE [address] [place] [address] Wojciech Li MD 230 [place] [address] 04/07/2025 2:30 PM EDT Office Visit [facility] OPTOMETRY [address] [place] [address] Tyra Mayer, OD [address] [place] [address] documented as of this encounter Visit Diagnoses Not on filedocumented in this encounter Care Teams Slab Grinder Relationship Specialty Start Date End Date Wojciech Li MD [address] [place] [address] PCP - General Internal Medicine 06/01/14 03/04/24 Wojciech Li MD [address] [place] [address] PCP - General Internal Medicine 03/12/24 03/12/24 Wojciech Li MD 230 [place] [address] PCP - General Internal Medicine 04/12/24 documented as of this encounter
--- OUTSIDE RECORDS SUMMARY | 2024-12-17 11:49 | XMS_ITS | Encounter Summary ---
Author Organization [employer] Address [address] [facility] 7t [place] [address] Care Team Providers Care Railway Signal Technician Name Role Phone Wojciech Li MD Primary Care Provide r Reason for Visit * Reason Comments Med Refill Encounter Details Date Type Department Care Team (Late st Contact Info) Description 05/23/2024 Refill [facility] MEDICINE 230 [place], [place] [phone] Dayanara Olmstead, [address] [place], [place] [phone] Chronic low back pain, unspecified back pain [...] Description 12/21/2024 11:00 AM EST Office Visit [facility] MEDICINE [address] [place] [address] 01/06/2025 9:00 AM EDT Telemedicine [facility] MEDICINE [address] [place] [address] 01/13/2025 1:00 PM EDT Office Visit [facility] MEDICINE [address] [place] [address] Wojciech Li MD [address] [place] [address] 04/07/2025 2:30 PM EDT Office Visit [facility] OPTOMETRY [address] [place] [address] Tyra Mayer, OD 230 [place] [address] documented as of this encounter Visit Diagnoses Diagnosis Chronic low back pain, unspecified back pain laterality, unspecified whether sciatica present Chronic obstructive pulmonary disease, unspecified COPD type (CMS/HCC) documented in this encounter Additional Health Concerns Assessment Noted Time PHQ-9 Depression Total Score: 0 06/10/20 23 10:47 AM EDT documented as of this encounter Care Teams Railway Signal Technician Relationship Specialty Start Date End Date Wojciech Li MD [address] [place] [address] PCP - General Internal Medicine 04/12/24 documented as of this encounter
--- OUTSIDE RECORDS SUMMARY | 2024-12-17 11:49 | XMS_ITS | Encounter Summary ---
Author Organization [facility] Address [address] [place] [address] Care Team Providers Care Heel Sewer Name Role Phone Dayanara Olmstead DO Primary Care Provider [phone] Reason for Referral * Imaging (Routine) - Pending Review Specialty Diagnoses / Procedures Referred By Contac t Referred To Contact Radiology Diagnoses Plantar fascial fibromatosis Contusion of left foot, subsequent encounter Procedures MR Foot wo Contrast Left Herman Oglesby DPM [address] [address] Phone: tel: fax: [facility] Referral ID Status Reason Start Date Expiration Date V isits Requested Visits Authorized [id number] Pending Review 12/06/2024 12/06/2025 1 1 Reason for Visit * Reason Comments Consult Left heel pain * Consultation (Routine) - Closed Specialty Diagnoses / Procedures Referred By Contact Referred To Contact Podiatry / Orthopaedic Surgery Diagnoses Pain of left heel Dayanara Olmstead DO [address] [place], [place] Phone: tel: fax: Herman Oglesby DPM [address] [address] Phone: tel: fax: Referral ID Status Reason Start Date Expiration Date V isits Requested Visits Authorized [id number] Closed Specialty Services Required 10/05/2024 03/31/2025 6 6 Encounter Details Date Type Department Care Team (Late st Contact Info) Description 12/06/2024 3:15 PM EST Office Visit Orthopedic Surgery - [place] [address] 175 [facility] [address] [place] [phone] Herman Oglesby DPM 175 [facility] 250 [place] [address] Plantar fascial fibromatosis (Primary Dx); Pain of left heel; Contusion of left foot, subsequent encounter Social History Tobacco Use Types Packs/Day Years Used Date Smoking Tobacco: Never Assessed Comments Unknown Sex and Gender Information Value Date Recorded Sex Assigned at Not on file Legal Sex Female 11:37 PM EST Gender Identity Not on file Sexual Orientation Not on file documented as of this encounter Last Filed Vital Signs Vital Sign Reading Time Taken Comments Blood Pressure - - Pulse - - Temperature - - Respiratory Rate - - Oxygen Saturation - - Inhaled Oxygen Concentration - - Weight 83.5 kg (184 lb) 12/06/2024 3:50 PM EST Height 162.6 cm (5' 4 ) 12/06/2024 3:50 PM EST Body Mass Index 31.58 12/06/2024 3:50 PM EST documented in this encounter Progress Notes * Herman Oglesby DPM - 12/06/2024 3:15 PM EST Last PCP visit:Referring MD: Dayanara Olmstead DO IDENTIFIER: Yefri is a 54 y.o. year old female who presents for consultation. CC: Foot pain HPI: Presents today with a very complex past medical history she was referred for evaluation of her leftheel has had multiple x-rays taken states that she has had multiple spinal surgeries ranging from L4-S1 continues have severe pain radiating from her leg down to her heel no numbness but sharp shooting intermittent tingling sensations she has her left has become extremely painful nothing that helpshis opioid medications administered in the ED oxycodone and morphine referred today for evaluation of left heel pain insurance verification clerk [id number] ROS: GENERAL: Pt denies nausea, fever, vomiting, chills, or shortness of breath. Pt in NAD. CARDIOLOGY: pt denies chest pain, palpitations LUNGS: pt denies shortness of breath MUSCULOSKELETAL: See HPI, otherwise no joint pain or swelling, back pain, or muscle pain. SKIN: see HPI, otherwise no lesions, rash or itching NEURO: No persistent headache, weakness or numbness The remainder of the review of systems is noncontributory PAST MEDICAL HISTORY: Patient Active Problem List Diagnosis Allergic rhinitis Anemia Bipolar affective disorder, currently depressed, moderate (CMS/HCC) Chronic low back pain Chronic pain of both knees Chronic tension type headache COPD (chronic obstructive pulmonary disease) (CMS/HCC) Cyst of ovary Depressive disorder HTN (hypertension) IBS (irritable bowel syndrome) Inflammatory pain of left heel Lower abdominal pain Mixed hyperlipidemia Moderate persistent asthma Nonintractable chronic migraine Obesity Osteoarthritis Periodic limb movement disorder Shoulder pain T2DM (type 2 diabetes mellitus) (CMS/HCC) Urinary incontinence SOCIAL HISTORY: Social History Tobacco Use Smoking status: Not on file Smokeless tobacco: Not on file Substance Use Topics Alcohol use: Not on file ACTIVE MEDICATIONS: Outpatient Medications Marked as Taking for the 12/06/24 encounter (Office Visit) with Herman Kebede DPM Medication Sig Dispense Refill albuterol 2.5 mg /3 mL (0.083 %) nebulizer solution Take 1 Vial by nebulization every 4 hours as needed. albuterol sulfate (ProAir RespiClick) 90 mcg/actuation aerosol powdr breath activated Inhale into the lungs 4 times daily. amitriptyline (ELAVIL) 75 mg tablet 1 TABLET AT BEDTIME PRN baclofen (LIORESAL) 10 mg tablet Take 1 Tablet by mouth 3 times daily. citalopram (CeleXA) 20 mg tablet 3 TABLET DAILY cyclobenzaprine (FLEXERIL) 10 mg tablet 1 TABLET 3 TIMES DAILY PRN diclofenac (VOLTAREN) 1 % topical gel Apply topically 3 times daily. dicyclomine (BENTYL) 20 mg tablet 1 TABLET Q 8 HRS PRN fluticasone furoate (Arnuity Ellipta) 200 mcg/actuation blister with device inhaler Inhale into thelungs daily. gabapentin (NEURONTIN) 100 mg capsule Take 1 capsule (100 mg total) by mouth 1 (one) time each day. insulin glargine (LANTUS) 100 unit/mL injection Inject 100 Units into the skin daily. naproxen (NAPROSYN) 500 mg tablet Take 1 Tablet by mouth 2 times daily (with meals). omeprazole (PriLOSEC) [address] capsule 20 mg po BID (1/2 hour befor eating) polyethylene glycol 3350 (MIRALAX ORAL) 1 capful (17g) - 2 times a day - mixed with 6-8oz water propranoloL (INDERAL) 40 mg tablet Take 1 tablet (40 mg total) by mouth 2 (two) times a day. simethicone (MYLICON) 80 mg chewable tablet 1 -2 TABLETS PO AFTER Q MEAL topiramate (Topamax) 25 mg tablet 1 TABLETS TWICE DAILY traZODone (DESYREL) 50 mg tablet Take 1 Tablet by mouth at bedtime. ALLERGIES: No Known Allergies PHYSICAL EXAM: Visit Vitals Ht 1.626 m (64 ) Wt 83.5 kg (184 lb) BMI 31.58 kg/m?? BSA 1.89 m?? PODIATRIC EXAMINATION: GENERAL: Patient appears well nourished, with NAD. VASCULAR: Dorsalis pedis pulses are 2/4 bilaterally and Posterior tibial pulses are 2/4 bilaterally. Capillary filling time within normal limits the digits. No pallor on elevation or rubor on dependency. No varicosities. Denies rest pain or claudication pain. NEUROLOGICAL: Sharp/dull sensation intact, protective sensation intact 10/10 with 5.07 semmes joanne bilaterally, vibratory sensation with tuning fork intact to the tibial tuberosity. Diffuse allodynia left lower extremity and heel ORTHOPEDIC: Good muscle strength 5/5 of all flexors and extensors. Dorsi flexion of ankle ,10 degrees, plantar flexion WNL. No muscle atrophy. Pain with palpation of the medial tuber of the calcaneus, negative palpable fibromas Pain palpation of the lateral wall the calcaneus left Pain with palpation of the calcaneal body left Equinus with 5 degrees dorsiflexion with knee bent 0 degrees with knee extended positive service occult test No pain on palpation of the posterior tibial tendon, patient to perform single and double heel raise No pain on palpation of the Achilles tendon. Negative palpable deficits of the Achilles tendon Normal range of motion of the ankle joint and subtalar joint DERMATOLOGICAL:.No masses or skin lesions noted. Normal skin temperature, normal skin turgor. BIOMECHANICS: Ankle ROM WNL, STJ ROM wnl, MTJ ROM wnl, 1st MPJ ROM wnl. IMAGING: IMPRESSION: 1. Plantar fascial fibromatosis 2. Pain of left heel 3. Contusion of left foot, subsequent encounter PLAN: Pt was seen and examined, history reviewed. Treatment options were discussed and reviewed including stretching exercises demonstrated for patient anti-inflammatory medications steroid injections orthotics and insoles Recommendations given for prefabricated insoles Referral offered physical therapy patient declined Prescription given for anti-inflammatory medication Outside radiographs were discussed and reviewed Documentation was reviewed in detail with patient greater than 45 minutes was required discussing patient's clinical complicated history from multiple spinal stenosis radiating pain to her lower extremity as well as trying to explain limitations of options with her given very complex past medical history of multiple sources severe lower extremity pain pain proportion with concerns for significantpain the lateral column of the calcaneus despite normal radiographs I would recommend an MRI for definitive diagnosis prior to pursuing treatment options Advanced imaging MRI ordered of the left heel for definitive diagnosis to rule out any type of stress reaction of the calcaneus prior to pursuing any type of steroid injection Follow-up in 4 to 6 weeks Herman Oglesby DPM documented in this encounter Plan of Treatment Upcoming Encounters Date Type Department Care Team ([facility] st Contact Info) Description 01/12/2025 1:30 PM EDT Office Visit Orthopedic Surgery - [place] [address] [phone] Herman Oglesby DPM [address] [address] Scheduled Orders Name Type Priority Associated Diagnoses Orde r Schedule MR Foot wo Contrast Left Imaging Routine Plantar fascial fibromatosis Contusion of left foot, subsequent encounter Expected: 12/06/2024, Expires: 12/06/2025 documented as of this encounter Visit Diagnoses Diagnosis Plantar fascial fibromatosis- Primary Pain of left heel Contusion of left foot, subsequent encounter documented in this encounter Orders Outpatient Referral Count Last Ordered Date Fir st Ordered Date AMB REFERRAL TO PODIATRY 1 12/06/2024 documented in this encounter Care Teams Heel Sewer Relationship Specialty Start Date End Date Dayanara Olmstead DO [address] [place] [address] PCP - General 04/02/24 documented as of this encounter
--- OUTSIDE RECORDS SUMMARY | 2024-12-17 11:49 | XMS_ITS | Encounter Summary ---
Author Organization [employer] Address [address] [place] [address] Care Team Providers Care Cytogeneticist Name Role Phone Wojciech Li MD Primary Care Provide r Wojciech Li MD Primary Care Provide r Wojciech Li MD Primary Care Provide r Encounter Details Date Type Department Care Team (Late st Contact Info) Description 11/04/2022 Orders Only [facility] [address] [place] [address] Dayanara Jiménez LPN Social History Tobacco Use [...] AM EST Office Visit [facility] [address] [place] [address] 01/06/2025 9:00 AM EDT Telemedicine [facility] [address] [place] [address] 01/13/2025 1:00 PM EDT Office Visit [facility] [address] [place] [address] Wojciech Li MD 230 [facility] [place] [address] 04/07/2025 2:30 PM EDT Office Visit [facility] [address] [place] [phone] Tyra Mayer, OD 230 [facility] [place] [address] documented as of this encounter Visit Diagnoses Not on filedocumented in this encounter Care Teams Cytogeneticist Relationship Specialty Start Date End Date Wojciech Li MD [address] [facility] [place] [phone] PCP - General Internal Medicine 06/01/14 03/04/24 Wojciech Li MD [address] [facility] [place] [place], [place] [phone] PCP - General Internal Medicine 03/12/24 03/12/24 Wojciech Li MD [address] [facility] [place], [place] [phone] PCP - General Internal Medicine 04/12/24 documented as of this encounter
--- OUTSIDE RECORDS SUMMARY | 2024-12-17 11:49 | XMS_ITS | Encounter Summary ---
Author Organization [employer] Address [address] 7[address] [place] [address] Care Team Providers Care Aerosol Line Operator Name Role Phone Wojciech Li MD Primary Care Provide r Reason for Visit * Reason Onset Date Comments New Patient 04/12/2024 Encounter Details Date Type Department Care Team ([facility] st Contact Info) Description 04/12/2024 Telephone [facility] [address] [place] [address] Wojciech Li MD 230 [place], [place] [phone] New Patient Social History Tobacco Use Types [...] caller requesting NEW PATIENT visit. Insurance name: [employer] Demographic information updated documented in this encounter Plan of Treatment Upcoming Encounters Date Type Department Care Team (Late st Contact Info) Description 12/21/2024 11:00 AM EST Office Visit [facility] [address] [place] [address] 01/06/2025 9:00 AM EDT Telemedicine [facility] [address] [place] [address] 01/13/2025 1:00 PM EDT Office Visit [facility] [address] [place] [address] Wojciech Li MD 230 [place] [address] 04/07/2025 2:30 PM EDT Office Visit [facility] OPTOMETRY [address] [place] [address] Tyra Mayer, DIEUDONNE 230 [place] [address] documented as of this encounter Visit Diagnoses Not on filedocumented in this encounter Additional Health Concerns Assessment Noted Time PHQ-9 Depression Total Score: 0 06/10/20 10:47 AM EDT documented as of this encounter Care Teams Aerosol Line Operator Relationship Specialty Start Date End Date Wojciech Li MD 230 [place] [address] PCP - General Internal Medicine 04/12/24 documented as of this encounter
--- OUTSIDE RECORDS SUMMARY | 2024-12-17 11:49 | XMS_ITS | Encounter Summary ---
Author Organization [employer] Address [address] [facility] 7t [place] [address] Care Team Providers Care Collating Machine Operator Name Role Phone Wojciech Li MD Primary Care Provide r Encounter Details Date Type Department Care Team ([facility] st Contact Info) Description 04/13/2024 Telephone [facility] 230 [place] [address] Wojciech Li MD 230 [place] [address] Social History Tobacco Use Types Packs/Day Years [...] Description 12/21/2024 11:00 AM EST Office Visit [facility] 230 [place] [address] 01/06/2025 9:00 AM EDT Telemedicine [facility] 230 [place] [address] 01/13/2025 1:00 PM EDT Office Visit [facility] [address] [place] [address] Wojciech Li MD 230 [place] [address] 04/07/2025 2:30 PM EDT Office Visit [facility] OPTOMETRY [address] [place] [address] Tyra Mayer, DIEUDONNE 230 [place] [address] documented as of this encounter Visit Diagnoses Not on filedocumented in this encounter Additional Health Concerns Assessment Noted Time PHQ-9 Depression Total Score: 0 06/10/20 23 10:47 AM EDT documented as of this encounter Care Teams Collating Machine Operator Relationship Specialty Start Date End Date Wojciech Li MD [address] [place] [address] PCP - General Internal Medicine 04/12/24 documented as of this encounter
--- OUTSIDE RECORDS SUMMARY | 2024-12-17 11:49 | XMS_ITS | Encounter Summary ---
Author Organization [employer] Address [address] [facility] 7t [place] [address] Care Team Providers Care Supervisor Roving Department Name Role Phone Wojciech Li MD Primary Care Provide r Wojciech Li MD Primary Care Provide r Wojciech Li MD Primary Care Provide r Reason for Visit * Reason Onset Date Comments Med Refill 04/18/2023 Encounter Details Date Type Department Care Team ([facility] st Contact Info) Description 04/18/2023 Telephone [facility] 230 [place], [place] [phone] Wojciech Li MD 230 [place], [place] [phone] Med Refill Social History Tobacco Use Types [...] Description 12/21/2024 11:00 AM EST Office Visit [facility] 230 [place] [address] 01/06/2025 9:00 AM EDT Telemedicine [facility] [address] [place] [address] 01/13/2025 1:00 PM EDT Office Visit [facility] [address] [place] [address] Wojciech Li MD 230 [place] [address] 04/07/2025 2:30 PM EDT Office Visit [facility] OPTOMETRY [address] [place] [address] Tyra Mayer, OD 230 [place] [address] documented as of this encounter Visit Diagnoses Not on filedocumented in this encounter Care Teams Supervisor Roving Department Relationship Specialty Start Date End Date Wojciech Li MD 230 [place] [address] PCP - General Internal Medicine 06/01/14 03/04/24 Wojciech Li MD 230 [place] [address] PCP - General Internal Medicine 03/12/24 03/12/24 Wojciech Li MD 230 [place] [address] PCP - General Internal Medicine 04/12/24 documented as of this encounter
--- OUTSIDE RECORDS SUMMARY | 2024-12-17 11:49 | XMS_ITS | Encounter Summary ---
Author Organization [employer] Address [address] [facility] 7t [place] [address] Care Team Providers Care Fashion Artist Name Role Phone Wojciech Li MD Primary Care Provide r Wojciech Li MD Primary Care Provide r Wojciech Li MD Primary Care Provide r Reason for Visit * Reason Comments Med Refill Encounter Details Date Type Department Care Team (Late st Contact Info) Description 07/24/2023 Refill [facility] 230 [place] [address] Yoko Eng MD 230 [place] [address] Lumbago with sciatica, left side Social History [...] 11:00 AM EST Office Visit [facility] [address] [place] [address] 01/06/2025 9:00 AM EDT Telemedicine [facility] [address] [place] [address] 01/13/2025 1:00 PM EDT Office Visit [facility] 230 [facility] [place] [address] Wojciech Li MD 230 [facility] [place] [address] 04/07/2025 2:30 PM EDT Office Visit [facility] OPTOMETRY [address] [facility] [place] [address] Moreno, Tyra, OD 230 [facility] [place] [address] documented as of this encounter Visit Diagnoses Diagnosis Lumbago with sciatica, left side documented in this encounter Additional Health Concerns Assessment Noted Time PHQ-9 Depression Total Score: 0 06/10/20 23 10:47 AM EDT documented as of this encounter Care Teams Fashion Artist Relationship Specialty Start Date End Date [place] [address] PCP - General Internal Medicine 06/01/14 03/04/24 [place] [address] PCP - General Internal Medicine 03/12/24 03/12/24 [place] [address] PCP - General Internal Medicine 04/12/24 documented as of this encounter
--- OUTSIDE RECORDS SUMMARY | 2024-12-17 11:49 | XMS_ITS | Encounter Summary ---
Author Organization [employer] Address [address] [place] [address] Care Team Providers Care Emergency Dispatcher Name Role Phone Wojciech Li MD Primary Care Provide r Reason for Visit * Reason Comments Med Refill Encounter Details Date Type Department Care Team (Late st Contact Info) Description 08/04/2024 Refill [facility] 230 [place], [place] [phone] Wojciech Li MD 230 [place], [place] [phone] Seasonal allergies Social History Tobacco Use Types [...] Description 12/21/2024 11:00 AM EST Office Visit [facility] [address] [place] [address] 01/06/2025 9:00 AM EDT Telemedicine [facility] [address] [place] [address] 01/13/2025 1:00 PM EDT Office Visit [facility] [address] [place] [address] Wojciech Li MD 230 [place] [address] 04/07/2025 2:30 PM EDT Office Visit [facility] OPTOMETRY [address] [place] [address] Moreno, Tyra, OD 230 [place] [address] documented as of this encounter Visit Diagnoses Diagnosis Seasonal allergies Allergic rhinitis, cause unspecified documented in this encounter Additional Health Concerns Assessment Noted Time PHQ-9 Depression Total Score: 0 06/10/20 23 10:47 AM EDT documented as of this encounter Care Teams Emergency Dispatcher Relationship Specialty Start Date End Date Wojciech Li MD 230 [place] [address] PCP - General Internal Medicine 04/12/24 documented as of this encounter
--- OUTSIDE RECORDS SUMMARY | 2024-12-17 11:49 | XMS_ITS | Clinical Summary ---
Author Organization [facility] Address [address] [place] [address] Phone Care Team Providers Care Bottle Washer Machine Name Role Phone Dayanara Olmstead DO Primary Care Provider [phone] Allergies No known active allergies Medications albuterol 2.5 mg /3 mL (0.083 %) [...] (CeleXA) 20 mg tablet 3 TABLET DAILY Activ e cyclobenzaprine (FLEXERIL) 10 mg tablet 1 TABLET 3 TIMES DAILY PRN Active diclofenac (VOLTAREN) 1 % topical gel Apply topically 3 times daily. Active dicyclomine (BENTYL) 20 mg tablet 1 TABLET Q 8 HRS PRN Active fluticasone furoate (Arnuity Ellipta) 200 mcg/actuation blister [...] a day - mixed with 6-8oz water 8 Active omeprazole (PriLOSEC) [address] capsule 20 mg po BID (1/2 hour befor eating) 8 Active propranoloL (INDERAL) 40 mg tablet Take 1 tablet (40 mg total) by mouth 2 (two) times a day. Active simethicone (MYLICON) 80 mg chewable tablet 1 -2 TABLETS PO AFTER Q MEAL Active topiramate (Topamax) 25 mg tablet 1 TABLETS TWICE DAILY Active traZODone (DESYREL) 50 mg tablet Take 1 [...] 2 diabetes mellitus) 06/25/2024 Urinary incontinence 06/25/2024 Encounters Date Type Department Care Team Description 12/06/2024 3:15 PM EST Office Visit Orth[facility] - [place] [address] [phone] Herman Oglesby, DPM Plantar fascial fibromatosis (Primary Dx); Pain of left heel; Contusion of left foot, subsequent encounter from Last 3 Months Social History Tobacco Use Types Packs/Day Years Used Date Smoking Tobacco: Never Assessed Comments Unknown Sex and Gender Information Value Date Recorded Sex Assigned at Not on file Legal Sex Female 11:37 PM EST Gender Identity Not on file Sexual Orientation Not on file Last Filed Vital Signs Vital Sign Reading Time Taken Comments Blood Pressure - - Pulse - - Temperature - - Respiratory Rate - - Oxygen Saturation - - Inhaled Oxygen Concentration - - Weight 83.5 kg (184 lb) 12/06/2024 3:50 PM EST Height 162.6 cm (5' 4 ) 12/06/2024 3:50 PM EST Body Mass Index 31.58 12/06/2024 3:50 PM EST Plan of Treatment Upcoming Encounters Date Type Department Care Team (Late st Contact Info) Description 01/12/2025 1:30 PM EDT Office Visit Orthopedic Surgery - [place] [address] [phone] Herman Oglesby, DPHaris [address] [address] Health Maintenance Due Date Last Done Comments Breast Cancer Screening 1970 Diabetes: Annual Foot Exam 1980 Diabetes: Annual Retina Eye Exam 1980 Hepatitis B Vaccines (1 of 3 - 19+ 3-dose series) 1989 Cervical Cancer Screening: Pap Smear 1991 Zoster Vaccines (1 of 2) 2020 Colorectal Cancer Screening: Colonoscopy 10/10/2022 HIV Screening 10/10/2022 Hepatitis C Screening 10/10/2022 Social Influencers of Health Screening 10/10/2022 COVID-19 Vaccine ( season) 2024 12/31/2022, 09/19/2021, 02/05/2021, Additional history exists Influenza Vaccine (#1) 2024 , 07/25/2022, 09/18/2021, Additional history exists Diabetes: Annual Urine Albumin-Creatinine Ratio (uACR) 08/09/2024 Diabetes: Blood Sugar Control Test (HGBA1C) 03/16/2025 09/16/2024, 09/14/2024 Depression Screening 09/14/2025 09/14/2024 DTaP,Tdap,and Td Vaccines (2 - Td or Tdap) 11/30/2025 11/30/2015 Diabetes: Annual GFR (Glomerular Filtration Rate) 12/05/2025 12/05/2024, 09/16/2024 Hypertension/CHF/CAD Annual BMP Blood Test 12/05/2025 12/05/2024, 09/16/2024 Cholesterol Screening (Lipid Panel) 09/16/2029 09/16/2024 Pneumococcal Vaccine: 50+ Years Completed 09/28/2024, 07/15/2013 Pneumococcal Vaccine: Pediatrics (0 to 5 Years) [...] patient's age to complete this topic Meningococcal B Vacine Aged Out No lo nger eligible based on patient's age to complete this topic RSV Immunization Patients Under 20 months Aged Out No longer eligible based on patient's age to complete this topic Varicella Vaccines Aged Out No longer eligible based on patient's age to complete this topic Insurance [place]ICA[place] - [place] Care Teams Bottle Washer Machine Relationship Specialty Start Date End Date Dayanara Olmstead DO [address] [place] [address] PCP - General 04/02/24
--- OUTSIDE RECORDS SUMMARY | 2024-12-17 11:49 | XMS_ITS | Encounter Summary ---
Author Organization [email or web address] Address [address] [facility] [address] [place] [address] Care Team Providers Care Computer Processing Scheduler Name Role Phone Wojciech Li MD Primary Care Provide r Reason for Visit * Reason Comments Med Refill Encounter Details Date Type Department Care Team (Late st Contact Info) Description 05/18/2024 Refill [facility] [address] [place], [place] [phone] Wojciech Li MD 230 [place], [place] [phone] Type 2 diabetes mellitus without complication, unspecified whether [facility] insulin use ([facility]); Essential hypertension Social History Tobacco Use Types [...] Description 12/21/2024 11:00 AM EST Office Visit [address] [address] 01/06/2025 9:00 AM EDT Telemedicine [facility] [address] [place] [address] 01/13/2025 1:00 PM EDT Office Visit [facility] [address] [place] [address] Wojciech Li MD [address] [place] [address] 04/07/2025 2:30 PM EDT Office Visit [facility] OPTOMETRY [address] [place] [address] Moreno, Tyra, OD [address] [place] [address] documented as of this encounter Visit Diagnoses Diagnosis Type 2 diabetes mellitus without complication, unspecified whether terminal operations supervisor insulin use ([facility]) Essential hypertension Unspecified essential hypertension documented in this encounter Additional Health Concerns Assessment Noted Time PHQ-9 Depression Total Score: 0 06/10/20 23 10:47 AM EDT documented as of this encounter Care Teams Computer Processing Scheduler Relationship Specialty Start Date End Date Wojciech Li MD [address] [place] [address] PCP - General Internal Medicine 04/12/24 documented as of this encounter
--- OUTSIDE RECORDS SUMMARY | 2024-12-17 11:49 | XMS_ITS | Encounter Summary ---
Author Organization [employer] Address 75 [facility] 7t [place] [address] Care Team Providers Care Registered Nurse Renal Name Role Phone Wojciech Li MD Primary Care Provide r Wojciech Li MD Primary Care Provide r Wojciech Li MD Primary Care Provide r Reason for Visit * Reason Onset Date Comments Medication Question 01/10/2023 Encounter Details Date Type Department Care Team ([facility] st Contact Info) Description 01/10/2023 Telephone [facility] MEDICINE [address] [place], [place] [phone] Wojciech Li MD [address] [place], [place] [phone] Medication Question Social History Tobacco Use Types [...] If any questions please contact Adriana at [phone] documented in this encounter Plan of Treatment Upcoming Encounters Date Type Department Care Team (Late st Contact Info) Description 12/21/2024 11:00 AM EST Office Visit [facility] MEDICINE [address] [place] [address] 01/06/2025 9:00 AM EDT Telemedicine [address] [address] 01/13/2025 1:00 PM EDT Office Visit [facility] MEDICINE [address] [place] [phone] Wojciech Li MD [address] [place] [address] 04/07/2025 2:30 PM EDT Office Visit [facility] OPTOMETRY [address] [place] [address] Moreno, Tyra, OD [address] [place] [address] documented as of this encounter Visit Diagnoses Not on filedocumented in this encounter Care Teams Registered Nurse Renal Relationship Specialty Start Date End Date Wojciech Li MD [address] [place] [address] PCP - General Internal Medicine 06/01/14 03/04/24 Wojciech Li MD [address] [place] [address] PCP - General Internal Medicine 03/12/24 03/12/24 Wojciech Li MD [address] [place] [address] PCP - General Internal Medicine 04/12/24 documented as of this encounter
--- OUTSIDE RECORDS SUMMARY | 2024-12-17 11:49 | XMS_ITS | Encounter Summary ---
Author Organization [employer] Address [address] [facility] [address] [place] [address] Care Team Providers Care Pediatric Registered Nurse Name Role Phone Wojciech Li MD Primary Care Provide r Encounter Details Date Type Department Care Team ([facility] st Contact Info) Description 11/17/2024 Telephone [facility] MEDICINE [address] [place], [place] [phone] Wojciech Li MD [address] [place], [place] [phone] Social History Tobacco Use Types Packs/Day Years [...] with others, in a hotel, in a fdc, living outside on the street, on a [...] 12/21/2024 11:00 AM EST Office Visit [facility] MEDICINE [address] [place] [address] 01/06/2025 9:00 AM EDT Telemedicine [facility] MEDICINE [address] [place] [address] 01/13/2025 1:00 PM EDT Office Visit [facility] MEDICINE [address] [place] [address] Wojciech Li MD [address] [place] [address] 04/07/2025 2:30 PM EDT Office Visit [facility] OPTOMETRY [address] [place], [place] [phone] Tyra Mayer OD 230 [place] [address] documented as of this encounter Visit Diagnoses Not on filedocumented in this encounter Additional Health Concerns Assessment Noted Time PHQ-9 Depression Total Score: 9 09/14/20 24 1:06 PM EST documented as of this encounter Care Teams Pediatric Registered Nurse Relationship Specialty Start Date End Date Wojciech Li MD [address] [place] [address] PCP - General Internal Medicine 04/12/24 documented as of this encounter
--- OUTSIDE RECORDS SUMMARY | 2024-12-17 11:49 | XMS_ITS | Encounter Summary ---
Author Organization [employer] Address 75 [facility] 7t [place] [address] Care Team Providers Care Associate Brand Manager Name Role Phone Wojciech Li MD Primary Care Provide r Wojciech Li MD Primary Care Provide r Wojciech Li MD Primary Care Provide r Encounter Details Date Type Department Care Team (Late st Contact Info) Description 12/09/2022 Orders Only [facility] MEDICINE [address] [place] [phone] Brina Lorenz LPN Social History Tobacco Use [...] Description 12/21/2024 11:00 AM EST Office Visit [address] [phone] 01/06/2025 9:00 AM EDT Telemedicine [address] [phone] 01/13/2025 1:00 PM EDT Office Visit [facility] [address] [facility] [place] [address] Wojciech Li MD [address] [place] [address] 04/07/2025 2:30 PM EDT Office Visit [facility] OPTOMETRY [address] [facility] [place] [address] Tyra Mayer, OD 230 [facility] [place] [address] documented as of this encounter Visit Diagnoses Not on filedocumented in this encounter Care Teams Associate Brand Manager Relationship Specialty Start Date End Date Wojciech Li MD [address] [facility] [place] [address] PCP - General Internal Medicine 06/01/14 03/04/24 Wojciech Li MD [address] [facility] [place] [address] PCP - General Internal Medicine 03/12/24 03/12/24 Wojciech Li MD [facility] [place] [address] PCP - General Internal Medicine 04/12/24 documented as of this encounter
--- OUTSIDE RECORDS SUMMARY | 2024-12-17 11:49 | XMS_ITS | Encounter Summary ---
Author Organization [employer] Address 75 [facility] 7t [place] [address] Care Team Providers Care Lever Tender Name Role Phone Wojciech Li MD Primary Care Provide r Reason for Visit * Consultation (Urgent) - Authorized Specialty Diagnoses / Procedures Referred By Contac t Referred To Contact Pharmacy Diagnoses Essential hypertension Mixed hyperlipidemia Bipolar affective disorder, currently depressed, moderate (CMS/HCC) Type 2 diabetes mellitus without complication, unspecified whether [facility] insulin use (CMS/HCC) Wojciech Li MD [address] [place] [address] Phone: tel: fax: Referral ID Status Reason Start Date Expiration Date Visits Requested Visits Authorized [id number] Authorized Continuity of Care 09/14/2024 09/14/2025 6 6 Encounter Details Date Type Department Care Team (Late st Contact Info) Description 11/04/2024 9:00 AM EST Telemedicine [facility] MEDICINE [address] [place] [address] Jackson Anne, PharmD 230 [place] [address] Type 2 diabetes mellitus without complication, unspecified whether [facility] insulin use (CMS/HCC) (Primary Dx); Essential hypertension; [...] with others, in a hotel, in a detention, living outside on the street, on a [...] Allergies: has No Known Allergies. Preferred Pharmacy: [facility] [place], [facility] 230 [facility] 230 [facility] [phone] Medbox: Yes, last medbox on 11/02/24 . Assessment & Plan Adherence: History: Medication Reconciliation: OTC medication, vitamin, supplement use: denies Adherence: Read/Write: Yes, in [place] Medication Organization: Uses medboxes from [facility] pharmacy Patient reports satisfaction with Medbox program. [...] History: Baseline EKG not available. Follows with [facility]ER Alli Goyal ([facility]) Date of last visit unknown Patient reports [...] the CDC Adult Immunization Schedule. Assessment/Plan: Influenza [id number] vaccine: Up-to-date . Next dose due annually. COVID-19 [id number] vaccine: Due . Next dose due annually. Hepatitis B series (Age 19-59): Due . Pneumococcal vaccines (chronic lung disease (asthma or COPD)): Up-to-date Shingrix series (age > 50 ): Due . Td/TDaP (within the past 10 years): Up-to-date . Next dose due every 10 years. Plan: Patient reports interest in receiving Hepatitis B and Shingrix vaccines at this time. Vaccine appointment scheduled at [facility] pharmacy for 11/16/24 Education: Indication of all [...] Description 12/21/2024 11:00 AM EST Office Visit [address] [address] 01/06/2025 9:00 AM EDT Telemedicine [facility] MEDICINE [address] [place] [address] 01/13/2025 1:00 PM EDT Office Visit [facility] [address] [place] [address] Wojciech Li MD [address] [place] [address] 04/07/2025 2:30 PM EDT Office Visit [facility] OPTOMETRY [address] [place], [place] [phone] Moreno, Tyra, OD 230 [place], [place] [phone] documented as of this encounter Visit Diagnoses Diagnosis Type 2 diabetes mellitus without complication, unspecified whether [facility] insulin use (CMS/HCC)- Primary Essential hypertension Unspecified essential hypertension Mixed hyperlipidemia Bipolar affective disorder, currently depressed, moderate (CMS/HCC) Bipolar I disorder, most recent episode (or current) depressed, moderate Chronic obstructive pulmonary disease, unspecified COPD type (CMS/HCC) Moderate persistent asthma without complication documented in this encounter Additional Health Concerns Assessment Noted Time PHQ-9 Depression Total Score: 9 09/14/20 24 1:06 PM EST documented as of this encounter Care Teams Lever Tender Relationship Specialty Start Date End Date Wojciech Li MD [address] [place] [address] PCP - General Internal Medicine 04/12/24 documented as of this encounter
--- OUTSIDE RECORDS SUMMARY | 2024-12-17 11:50 | XMS_ITS | Encounter Summary ---
Author Organization [employer] Address [address] 7[address] [place] [address] Care Team Providers Care Maintenance Job Titles Name Role Phone Wojciech Li MD Primary Care Provide r Encounter Details Date Type Department Care Team (Late st Contact Info) Description 12/05/2024 Orders Only GENERIC EXTERNAL DATA DEPARTMENT Provider, Generic External Data Social History Tobacco Use Types Packs/Day Years [...] with others, in a [place], in [place] [facility] [place], living outside on the street, on a [...] 12/21/2024 11:00 AM EST Office Visit [facility] [address] [place] [address] 01/06/2025 9:00 AM EDT Telemedicine [facility] [address] [place] [address] 01/13/2025 1:00 PM EDT Office Visit [facility] [address] [place] [address] Wojciech Li MD [address] [place] [address] 04/07/2025 2:30 PM EDT Office Visit [facility] [address] [place] [address] Tyra Mayer, OD [address] [place] [address] documented as of this encounter Procedures Procedure Name Priority Date/Time Associated Diagnosis Comments CTA HEAD NECK W AND WO CONTRAST Routine 12/05/2024 4:56 AM EST URINALYSIS, COMPLETE, WITH REFLEX TO CULTURE Routine 12/05/2024 2:58 AM EST CULTURE, URINE, ROUTINE Routine 12/05/2024 2:58 AM EST XR CHEST 1 VIEW Routine 12/05/2024 2:45 AM EST SARS COV2/INFLUENZA A/B AND RSV RNA QL NAAT Routine 12/05/2024 2:08 AM EST CBC WITH AUTO DIFFERENTIAL Routine 12/05/2024 2:08 AM EST PROTHROMBIN TIME-INR Routine 12/05/2024 2:08 AM EST COMPREHENSIVE METABOLIC PANEL Routine 12/05/2024 2:08 AM EST GLUCOSE, WHOLE BLOOD Routine 12/05/2024 2:01 AM EST documented in this encounter Results * CTA Head Neck w/ and w/o Contrast (12/05/2024 4:56 AM EST) Anatomical Region Laterality Modality Head, Neck Computed Tomogra phy 12/05/2024 4:56 AM EST Narrative 12/05/2024 4:58 AM EST ? [facility] ?[address] ?[place] [address] ? CT Scan Report ? Signed ? Patient: Yefri,Brandie ?MR#: [id number] ?? [id number] ? : 1970 ?Acct:[id number] ? Age/Sex: 54 / F ?ADM Date: 12/05/24 ? Loc: HO.ED ? Attending Dr: ? Ordering Physician: Marta Barkley ?? Date of Service: 12/05/24 ?? Procedure(s): CT angio head neck ?? Accession Number(s): [id number] ? cc: Marta Barkley; [facility] ? Report Number: ?? [id number]: Total DLP = 2086.00 mGy-cm ? CLINICAL [...] ? DD/ 5 ? TD/TT: 12/05/24455 ? Animal Pathology Teacher: ? Procedure Note Hector Cervantes - 12/05/[address] [address] [address] Scan Report Signed Patient: Toya Asif#: [id number] : 1970Acct:[id number] Age/Sex: 54 / FADM Date: 12/05/24 Loc: HO.ED Attending Dr: Ordering Physician: Marta Barkley Date of Service: 12/05/24 Procedure(s): CT angio head neck Accession Number(s): [id number] cc: Marta Barkley; [facility] Report Number: [id number]: Total DLP = 2086.00 mGy-cm CLINICAL HISTORY: [...] signed by Conor Martinez MD in OV> 12/05/247 DD/ 5 TD/TT: 12/05/24455 Animal Pathology Teacher: [facility] External Provider IMG CT PROCEDURES Edited Result - Final * Culture, Urine, Routine (12/05/2024 2:58 AM EST) Urine Urine specimen obtained by clean catch procedure / Unknown 12/05/2024 2:58 AM EST 12/05/2024 3:42 AM EST Comment:UACC Narrative [facility] - 12/06/2024 9:02 AM EST Urine Culture No growth. Specimen Source: Urine clean catch us Generic External Data Provider LAB MICROBIOLOGY - GENERAL ORDERABLES Final Result Performing Organization Address [facility] Co de Phone Number [facility] [address] [place] [phone] * (ABNORMAL) Urinalysis, Complete, with Reflex to Culture (12/05/2024 2:58 AM EST) Color Urine Yellow [facility] Appearance Urine Clear [facility] PH 5.5 5.0 - 9.0 [facility] Glucose Urine UA Negative Negative mg/dL [facility] Urine Blood Small (1+)(A) Negative [facility] Specific [place] - Urine 1.015 1.005 - 1.025 [facility] Urine Protein Negative Neg-Trace mg/dL [facility] Urine Ketones Negative Negative mg/dL [facility] Nitrite Urine Negative Negative [facility] Leukocyte Esterase Urine Moderate (2+)(A) Negative [facility] RBC Urine 3-5(A) 0 - 2 /HPF [facility] Urine WBC >50(A) 0 - 5 /HPF [facility] Urine Squamous Epithelial Cell 3-5 0 - 2 /HPF [facility] Urine Bacteria Trace None Seen [facility] Hyaline Casts, Urine 0-2 0 - 2 /LPF [facility] 12/05/2024 2:58 AM EST 12/05/2024 3:02 AM EST [facility] - 12/05/2024 3:39 AM EST [id number], Clean Catch Generic External Data Provider LAB URINE ORDERAB LES Final Result Performing Organization Address [facility] Co de Phone Number [facility] [address] [place] [address] [phone] * XR Chest 1 View (12/05/2024 2:45 AM EST) Anatomical Region Laterality Modality Chest Radiographic Tammie ging 12/05/2024 2:45 AM EST Narrative 12/05/2024 2:47 AM EST ? [facility] ?[address] ?[place] [address] ?XRay Report ? Signed ? Patient: Yefri,Brandie ?MR#: [id number] ?? [id number] ? : 1970 ?Acct:[id number] ? Age/Sex: 54 / F ?ADM Date: 12/05/24 ? Loc: HO.ED ? Attending Dr: ? Ordering Physician: Romero Gastelum MD ?? Date of Service: 12/05/24 ?? Procedure(s): XR chest 1V ?? Accession Number(s): [id number] ? cc: [facility]; Romero Gastelum MD ? CLINICAL HISTORY: [...] by Conor Martinez MD in OV> ? 12/05/24245 ? DD/ 4 ? TD/TT: 12/05/24244 ? Animal Pathology Teacher: ? Procedure Note Hector Cervantes - 12/05/[address] [address] XRay Report Signed Patient: Toya Asif#: [id number] : 1970Acct:[id number] Age/Sex: 54 / FADM Date: 12/05/24 Loc: HO.ED Attending Dr: Ordering Physician: Romero Gastelum MD Date of Service: 12/05/24 Procedure(s): XR chest 1V Accession Number(s): [id number] cc: [facility]; Romero Gastelum MD CLINICAL HISTORY: cough [...] in OV> 12/05/24245 DD/ 4 TD/TT: 12/05/24244 Animal Pathology Teacher: [facility] External Provider IMG XR PROCEDURES Edited Result - Final * SARS-CoV-2 RNA, Influenza A/B, and RSV RNA, Ql NAAT (12/05/2024 2:08 AM EST) Influenza A PCR NEGATIVE Negative [facility] Influenza B PCR NEGATIVE Negative [facility] Resp Syncy Virus RNA Qual PCR NEGATIVE Negative [facility] SARS COV2 PCR NEGATIVE Negative [facility] Comment:All test results mus t be [...] use by authorized laboratories.Testing performed on the [employer] GeneXpert utilizingreal-time RT-PCR.All SARS CoV2 and positive influenza A/B results arereported to [facility]. 12/05/2024 2:08 AM EST 12/05/2024 2:13 AM EST us Generic External Data Provider LAB MICROBIOLOGY - GENERAL ORDERABLES Final Result [facility] [address] [place] [address] [phone] * (ABNORMAL) Comprehensive Metabolic Panel (12/05/2024 2:08 AM EST) Sodium 141 135 - 145 mmol/L [facility] Potassium 3.7 3.3 - 5.1 mmol/L [facility] Chloride 106 96 - 108 mmol/L [facility] Carbon Dioxide 23 22 - 29 mmol/L [facility] Anion Gap 16 12 - 20 [facility] Urea Nitrogen (BUN) 18(H) 9 - 16 mg/dL [facility] Creatinine, Serum 0.77 0.5 - 1.4 mg/dL [facility] Creatinine Clr Calc Pharmacy 87.9 [facility] Comment:Provided height and weight: 162.56 cm,84.7 kg.eGFR (calculated from the MDRD study equation) and eCrCl(calculated from the Cockcroft-Gault equation) are based ondifferent parameters and may not yield comparable results.If eCrCl result is absurd, please check patient'sheight/weight. Estimated Glomerular Filt Rate >60 [facility] Comment:Chronic Kidney Disea se: Estimated GFR < 60 mL/min/[id number] Kidney Disease: Estimated GFR < 15 mL/min/1.73m2 Glucose 130(H) 60 - 115 mg/dL [facility] Calcium 9.9 8.4 - 10.2 mg/dL [facility] Bilirubin, Total 0.3 0.0 - 1.0 mg/dL [facility] Aspartate Amino Transferase 31 5 - 31 U/L [facility] Alanine Aminotransferase 41(H) 0 - 31 U/L [facility] Total Protein 8.4(H) 6.5 - 8.0 g/dL [facility] Albumin Level 4.4 3.5 - 5.0 g/dL [facility] Alkaline Phosphatase 134(H) 39 - 117 U/L [facility] 12/05/2024 2:08 AM EST 12/05/2024 2:13 AM EST Generic External Data Provider LAB BLOOD ORDERAB LES Final Result Performing Organization Address [facility]/ZIP Co de Phone Number [facility] [address] [place] [phone] * Prothrombin Time-INR (12/05/2024 2:08 AM EST) Prothrombin Time 11.7 10.9 - 12.4 SEC [facility] INTERNATIONAL NORM RATIO 1.0 0.9 - 1.1 [facility] Comment:INTERNATIONAL NORMAL IZED RATIO (INR) REFERENCE [...] ORDERAB LES Final Result Performing Organization Address [facility] Co de Phone Number [facility] [address] [place] [phone] * (ABNORMAL) CBC auto differential (12/05/2024 2:08 AM EST) White Blood Count 8.8 4.8 - 10.8 X10*3/uL [facility] Red Blood Count 4.46 4.20 - 5.50 X10*6/uL [facility] Hemoglobin 14.2 12.0 - 16.0 g/dl [facility] Hematocrit 39.6 37.0 - 47.0 % [facility] Mean Corpuscular Volume 88.8 80.0 - 98.0 fL [facility] Mean Corpuscular Hemoglobin 31.8 27.0 - 33.0 pg [facility] Mean Corpuscular HGB Conc 35.9(H) 31.0 - 35.0 g/dl [facility] Red Cell Distribution Width 12.6 11.0 - 16.0 % [facility] Platelet Count 300 160 - 400 X10*3/uL [facility] Mean Platelet Volume 10.5 9.4 - 12.3 fL [facility] Neutrophils Percent Auto 55.5 45 - 73 % [facility] Imm Gran Pct Auto 0.3 0.0 - 0.4 % [facility] Lymphocytes Percent Auto 35.3 20 - 40 % [facility] Monocytes Percent Auto 6.3 2 - 11 % [facility] Eosinophils Percent Auto 2.3 0 - 4 % [facility] Basophils Percent Auto 0.3 0 - 2 % [facility] NRBC Pct Auto 0.0 0.0 - 0.2 /100WBC [facility] Neutrophils Absolute Auto 4.9 2.0 - 8.3 x10*3/uL [facility] Imm Gran Abs Auto 0.03 0.00 - 0.03 X10*3/uL [facility] Lymphocytes Absolute Auto 3.1 1.2 - 4.9 X10*3/uL [facility] Monocytes Absolute Auto 0.6 0.1 - 1.2 X10*3/uL [facility] Eosinophils Absolute Auto 0.2 0.0 - 0.4 X10*3/uL [facility] Basophils Absolute Auto 0.0 0.0 - 0.2 X10*3/uL [facility] NRBC Abs Auto 0.000 0.0 - 0.012 X10*3/uL [facility] 12/05/2024 2:08 AM EST 12/05/2024 2:13 AM EST us Generic External Data Provider LAB BLOOD ORDERAB LES Final Result [facility] [address] [place] [address] [place] [phone] [phone] * (ABNORMAL) Glucose, Whole Blood (12/05/2024 2:01 AM EST) Glucose, Whole Blood 136(H) 60 - 115 mg/dL [facility] Comment:METER #: [id number] 12/05/2024 2:01 AM EST 12/05/2024 2:06 AM EST us Generic External Data Provider LAB BLOOD ORDERAB LES Final Result [facility] [address] [place] [address] [phone] documented in this encounter Visit Diagnoses Not on filedocumented in this encounter Additional Health Concerns Assessment Noted Time PHQ-9 Depression Total Score: 9 09/14/20 24 1:06 PM EST documented as of this encounter Care Teams Maintenance Job Titles Relationship Specialty Start Date End Date Wojciech Li MD [address] [place] [address] PCP - General Internal Medicine 04/12/24 documented as of this encounter
--- OUTSIDE RECORDS SUMMARY | 2024-12-17 11:50 | XMS_ITS | Encounter Summary ---
Author Organization [employer] Address [address] [place] [address] Care Team Providers Care Wreath Maker Name Role Phone Wojciech Li MD Primary Care Provide r Reason for Visit * Reason Comments Med Refill Encounter Details Date Type Department Care Team ([facility] st Contact Info) Description 12/10/2024 Refill [facility] [address] [place] [address] Miriam Lai MD [address] [place] [address] Acute exacerbation of COPD with asthma (CMS/HCC); Chronic low back pain, unspecified back pain [...] Description 12/21/2024 11:00 AM EST Office Visit [facility] [address] [place] [address] 01/06/2025 9:00 AM EDT Telemedicine [facility] [address] [place] [address] 01/13/2025 1:00 PM EDT Office Visit [facility] [address] [place] [address] Wojciech Li MD [address] [place] [address] 04/07/2025 2:30 PM EDT Office Visit [facility] [address] [place] [address] Tyra Mayer, OD [address] [place] [address] documented as of this encounter Visit Diagnoses Diagnosis Acute exacerbation of COPD with asthma (CMS/HCC) Chronic low back pain, unspecified back pain laterality, unspecified whether sciatica present Chronic obstructive pulmonary disease, unspecified COPD type (CMS/HCC) documented in this encounter Additional Health Concerns Assessment Noted Time PHQ-9 Depression Total Score: 9 09/14/20 24 1:06 PM EST documented as of this encounter Care Teams Wreath Maker Relationship Specialty Start Date End Date Wojciech Li MD [address] [place] [address] PCP - General Internal Medicine 04/12/24 documented as of this encounter
--- OUTSIDE RECORDS SUMMARY | 2024-12-17 11:50 | XMS_ITS | Encounter Summary ---
Author Organization [employer] Address [address] [place] [address] Care Team Providers Care Registered Nurse Midwife Name Role Phone Wojciech Li MD Primary Care Provide r Wojciech Li MD Primary Care Provide r Wojciech Li MD Primary Care Provide r Reason for Visit * Reason Comments Med Refill Encounter Details Date Type Department Care Team (Late st Contact Info) Description 09/15/2023 Refill [facility] DI[facility]TRITION [address] [place], [place] [phone] Wojciech Li MD [address] [place], [place] [phone] Type 2 diabetes mellitus without complication, unspecified whether carver and checkerer specials insulin use ([facility]) Social History Tobacco Use Types [...] 11:00 AM EST Office Visit [facility] [address] [place] [address] 01/06/2025 9:00 AM EDT Telemedicine [facility] [address] [place] [address] 01/13/2025 1:00 PM EDT Office Visit [facility] [address] [place] [address] Wojciech Li MD [address] [place] [address] 04/07/2025 2:30 PM EDT Office Visit [facility] OPTOMETRY [address] [place] [address] Tyra Mayer, OD [address] [place] [address] documented as of this encounter Visit Diagnoses Diagnosis Type 2 diabetes mellitus without complication, unspecified whether jail insulin use ([facility]) documented in this encounter Additional Health Concerns Assessment Noted Time PHQ-9 Depression Total Score: 0 06/10/20 23 10:47 AM EDT documented as of this encounter Care Teams Registered Nurse Midwife Relationship Specialty Start Date End Date Wojciech Li MD [address] [place] [address] PCP - General Internal Medicine 06/01/14 03/04/24 Wojciech Li MD [address] [place] [address] PCP - General Internal Medicine 03/12/24 03/12/24 Wojciech Li MD [address] [place] [address] PCP - General Internal Medicine 04/12/24 documented as of this encounter
--- OUTSIDE RECORDS SUMMARY | 2024-12-17 11:50 | XMS_ITS | Encounter Summary ---
Author Organization [employer] Address [address] [facility] 7t [place] [address] Care Team Providers Care Study Assistant Name Role Phone Wojceich Li MD Primary Care Provide r Reason for Visit * Reason Comments Med Refill Encounter Details Date Type Department Care Team (Late st Contact Info) Description 12/02/2024 Refill [facility] [address] [place], [place] [phone] Wojciech Li MD [address] [place], [place] [phone] Type 2 diabetes mellitus without complication, unspecified whether long-term insulin use ([facility]) Social History Tobacco Use Types Packs/Day [...] Description 12/21/2024 11:00 AM EST Office Visit [facility] [address] [place] [address] 01/06/2025 9:00 AM EDT Telemedicine [facility] [address] [place] [address] 01/13/2025 1:00 PM EDT Office Visit [facility] [address] [place] [address] Wojciech Li MD [address] [place] [address] 04/07/2025 2:30 PM EDT Office Visit [facility] OPTOMETRY [address] [place] [address] Tyra Mayer, OD [address] [place] [address] documented as of this encounter Visit Diagnoses Diagnosis Type 2 diabetes mellitus without complication, unspecified whether supervisor feed mill insulin use ([facility]) documented in this encounter Additional Health Concerns Assessment Noted Time PHQ-9 Depression Total Score: 9 09/14/20 24 1:06 PM EST documented as of this encounter Care Teams Study Assistant Relationship Specialty Start Date End Date Wojciech Li MD [address] [place] [address] PCP - General Internal Medicine 04/12/24 documented as of this encounter
--- OUTSIDE RECORDS SUMMARY | 2024-12-17 11:50 | XMS_ITS | Encounter Summary ---
Author Organization [employer] Address [address] [place] [address] Care Team Providers Care Air Sealing Technician Name Role Phone Wojciech Li MD Primary Care Provide r Reason for Visit * Reason Onset Date Comments Med Refill 12/06/2024 Encounter Details Date Type Department Care Team ([facility] st Contact Info) Description 12/06/2024 Refill [facility] [address] [place] [address] Yusra Ledezma, RN [address] [place] [address] Chronic midline low back pain without sciatica; Other chronic pain Social History Tobacco Use [...] with others, in a hotel, in a long-term, living outside on the street, on a [...] Description 12/21/2024 11:00 AM EST Office Visit [facility] [address] [place] [address] 01/06/2025 9:00 AM EDT Telemedicine [facility] [address] [place] [address] 01/13/2025 1:00 PM EDT Office Visit [facility] [address] [place] [address] Wojciech Li MD [address] [place] [address] 04/07/2025 2:30 PM EDT Office Visit [facility] OPTOMET[facility] [address] [place] [address] Tyra Mayer, OD [address] [place] [address] documented as of this encounter Visit Diagnoses Diagnosis Chronic midline low back pain without sciatica Other chronic pain documented in this encounter Additional Health Concerns Assessment Noted Time PHQ-9 Depression Total Score: 9 09/14/20 24 1:06 PM EST documented as of this encounter Care Teams Air Sealing Technician Relationship Specialty Start Date End Date Wojciech Li MD [address] [place] [address] PCP - General Internal Medicine 04/12/24 documented as of this encounter
--- OUTSIDE RECORDS SUMMARY | 2024-12-17 11:50 | XMS_ITS | Encounter Summary ---
Author Organization [employer] Address [address] [facility] 7t [place] [address] Care Team Providers Care Menu Planner Name Role Phone Wojciech Li MD Primary Care Provide r Reason for Visit * Reason Onset Date Comments Durable Medical Equipment 12/09/2024 Encounter Details Date Type Department Care Team ([facility] st Contact Info) Description 12/09/2024 Telephone [facility] [address] [place] [address] Wojciech Li MD [address] [place] [address] Durable Medical Equipment Social History Tobacco Use [...] encounter Miscellaneous Notes * Telephone Encounter - Arti Kelley - 12/10/2024 12:06 PM EST [employer] Manager called pt and informed MH will cover either cane or walker, not both. Pt cancelled request for cane, states needs walker more. Confirmed shower chair w/back. DME RX for Shower chair and Walker generated and placed on providers desk for signature. * Telephone Encounter - Rissa Higginbotham - 12/09/2024 2:32 PM EST Tc from pt requesting: - Rollator walker 4 wheels (with Fold Up and Removable Back Support and Padded Seat) - Shower seat - Cane documented in this encounter Plan of Treatment Upcoming Encounters Date Type Department Care Team (Late st Contact Info) Description 12/21/2024 11:00 AM EST Office Visit [facility] [address] [place] [address] 01/06/2025 9:00 AM EDT Telemedicine [facility] [address] [facility] [address] 01/13/2025 1:00 PM EDT Office Visit [facility] [address] [place] [address] Wojciech Li MD [address] [facility] [place] [phone] 04/07/2025 2:30 PM EDT Office Visit [facility] OPT[facility] [address] [facility] [place] [phone] Tyra Mayer, OD [address] [facility] [place] [phone] documented as of this encounter Visit Diagnoses Not on filedocumented in this encounter Additional Health Concerns Assessment Noted Time PHQ-9 Depression Total Score: 9 09/14/20 24 1:06 PM EST documented as of this encounter Care Teams Menu Planner Relationship Specialty Start Date End Date Wojciech Li MD [address] [facility] [place] [phone] PCP - General Internal Medicine 04/12/24 documented as of this encounter
--- OUTSIDE RECORDS SUMMARY | 2024-12-17 11:50 | XMS_ITS | Encounter Summary ---
Author Organization [employer] Address 75 [facility] 7t [place] [address] Care Team Providers Care Construction Cost Estimator Name Role Phone Wojciech Li MD Primary Care Provide r Reason for Visit * Reason Onset Date Comments Med Refill 12/01/2024 Encounter Details Date Type Department Care Team (Late st Contact Info) Description 12/01/2024 Refill [facility] MEDICINE [address] [place] [address] Wojciech Li MD 230 [place] [address] Other chronic pain Social History Tobacco Use [...] with others, in a hotel, in a intermediate, living outside on the street, on a [...] encounter Miscellaneous Notes * Telephone Encounter - Chanucey Chavarria - 12/01/2024 1:17 PM EST TC from pt requesting medication refill. Medications needing refill : Mapap 500 MG capsule To be sent to: [facility] - [place], [place] - [address] [place] [address] documented in this encounter Plan of Treatment Upcoming Encounters Date Type Department Care Team ([facility] st Contact Info) Description 12/21/2024 11:00 AM EST Office Visit [facility] MEDICINE [address] [place] [address] 01/06/2025 9:00 AM EDT Telemedicine [facility] MEDICINE [address] [place] [address] 01/13/2025 1:00 PM EDT Office Visit [facility] MEDICINE [address] [place] [address] Wojciech Li MD [address] [place] [address] 04/07/2025 2:30 PM EDT Office Visit [facility] OPTOMETRY [address] [place], [place] [phone] Tyra Mayer, OD 230 [place] [address] documented as of this encounter Visit Diagnoses Diagnosis Other chronic pain documented in this encounter Additional Health Concerns Assessment Noted Time PHQ-9 Depression Total Score: 9 09/14/20 1:06 PM EST documented as of this encounter Care Teams Construction Cost Estimator Relationship Specialty Start Date End Date Wojciech Li MD [address] [place], [place] [phone] PCP - General Internal Medicine 04/12/24 documented as of this encounter
--- OUTSIDE RECORDS SUMMARY | 2024-12-17 11:50 | XMS_ITS | Encounter Summary ---
Author Organization [employer] Address [address] [facility] [address] 7[address] [place] [address] Care Team Providers Care Head Miller Name Role Phone Wojciech Li MD Primary Care Provide r Reason for Visit * Reason Onset Date Comments ER Follow-up 12/06/2024 Encounter Details Date Type Department Care Team ([facility] st Contact Info) Description 12/06/2024 Telephone [facility] MEDICINE 230 [place] [address] Ivette Barahona, RN 230 [place] [address] ER Follow-up Social History Tobacco Use Types Packs/Day Years [...] with others, in a hotel, in a snf, living outside on the street, on a [...] encounter Miscellaneous Notes * Telephone Encounter - Ivette Barahona RN - 12/06/2024 1:52 PM EST Pt walked into green team lobby requesting ED follow up. Seen at [facility] ED yesterday 12/05/24 for migraine. Pt still symptomatic. Refusing appt in [facility] or with any other provider, only wants PCP. Booked for 12/21 with PCP but strongly encouraged if migraine worsens to come to [facility]. Informed of NTTS. documented in this encounter Plan of Treatment Upcoming Encounters Date Type Department Care Team (Late st Contact Info) Description 12/21/2024 11:00 AM EST Office Visit [facility] MEDICINE [address] [place] [address] 01/06/2025 9:00 AM EDT Telemedicine [facility] [address] [place] [address] 01/13/2025 1:00 PM EDT Office Visit [facility] [address] [place] [address] Wojciech Li MD 230 [place], [place] [phone] 04/07/2025 2:30 PM EDT Office Visit [facility] OPTOMETRY [address] [place], [place] [phone] Moreno, Tyra, OD 230 [place], [place] [phone] documented as of this encounter Visit Diagnoses Not on filedocumented in this encounter Additional Health Concerns Assessment Noted Time PHQ-9 Depression Total Score: 9 09/14/20 24 1:06 PM EST documented as of this encounter Care Teams Head Miller Relationship Specialty Start Date End Date Wojciech Li MD 230 [place], [place] [phone] PCP - General Internal Medicine 04/12/24 documented as of this encounter
--- OUTSIDE RECORDS SUMMARY | 2024-12-17 11:50 | XMS_ITS | Encounter Summary ---
Author Organization [employer] Address [address] [facility] [address] 7[address] [place] [address] Care Team Providers Care Roadability Machine Operator Name Role Phone Wojciech Li MD Primary Care Provide r Wojciech Li MD Primary Care Provide r Wojciech Li MD Primary Care Provide r Reason for Visit * Reason Comments Med Refill Encounter Details Date Type Department Care Team (Late st Contact Info) Description 11/03/2023 Refill [facility] MEDICINE 230 [place], [place] [phone] Thanh Esposito, PharmD 230 [place] [address] Essential hypertension Social History Tobacco Use Types [...] 12/21/2024 11:00 AM EST Office Visit [facility] MEDICINE 230 [place] [address] 01/06/2025 9:00 AM EDT Telemedicine [facility] MEDICINE [address] [place] [address] 01/13/2025 1:00 PM EDT Office Visit [facility] MEDICINE [address] [place] [address] Wojciech Li MD 230 [place] [address] 04/07/2025 2:30 PM EDT Office Visit [facility] OPTOMETRY [address] [place] [address] Moreno, Tyra, OD 230 [place] [address] documented as of this encounter Visit Diagnoses Diagnosis Essential hypertension Unspecified essential hypertension documented in this encounter Additional Health Concerns Assessment Noted Time PHQ-9 Depression Total Score: 0 06/10/20 23 10:47 AM EDT documented as of this encounter Care Teams Roadability Machine Operator Relationship Specialty Start Date End Date Wojciech Li MD [address] [place] [address] PCP - General Internal Medicine 06/01/14 03/04/24 Wojciech Li MD [address] [place] [address] PCP - General Internal Medicine 03/12/24 03/12/24 Wojciech Li MD [address] [place] [address] PCP - General Internal Medicine 04/12/24 documented as of this encounter
--- OUTSIDE RECORDS SUMMARY | 2024-12-17 11:50 | XMS_ITS | Encounter Summary ---
Author Organization [employer] Address 75 [facility] 7t [place] [address] Care Team Providers Care Defense Travel Administrator Name Role Phone Wojciech iL MD Primary Care Provide r Reason for Visit * Reason Comments Med Refill Encounter Details Date Type Department Care Team (Late st Contact Info) Description 12/07/2024 Refill [facility] MEDICINE 230 [place], [place] [phone] Wojciech Li MD 230 [place], [place] [phone] Other chronic pain; Chronic midline low back [...] Description 12/21/2024 11:00 AM EST Office Visit [facility] MEDICINE [address] [place] [address] 01/06/2025 9:00 AM EDT Telemedicine [facility] MEDICINE 230 [place] [address] 01/13/2025 1:00 PM EDT Office Visit [facility] MEDICINE 230 [place] [address] Wojciech Li MD 230 [place] [address] 04/07/2025 2:30 PM EDT Office Visit [facility] OPTOMETRY [address] [place] [address] Tyra Mayer, OD 230 [place] [address] documented as of this encounter Visit Diagnoses Diagnosis Other chronic pain Chronic midline low back pain without sciatica documented in this encounter Additional Health Concerns Assessment Noted Time PHQ-9 Depression Total Score: 9 09/14/20 24 1:06 PM EST documented as of this encounter Care Teams Defense Travel Administrator Relationship Specialty Start Date End Date Wojciech Li MD 230 [place] [address] PCP - General Internal Medicine 04/12/24 documented as of this encounter
--- OUTSIDE RECORDS SUMMARY | 2024-12-17 11:50 | XMS_ITS | Encounter Summary ---
Author Organization [employer] Address [address] [facility] [address] 7t [place] [address] Care Team Providers Care Solar Installation Crew Supervisor Name Role Phone Wojciech Li MD Primary Care Provide r Wojciech Li MD Primary Care Provide r Wojciech Li MD Primary Care Provide r Encounter Details Date Type Department Care Team (Late st Contact Info) Description 02/17/2024 Orders Only [facility] MEDICINE 230 [place] [address] Provider, MD Juan Social History Tobacco Use [...] Visit [facility] MEDICINE [address] [place] [address] 01/06/2025 9:00 AM EDT Telemedicine [facility] MEDICINE [address] [place] [address] 01/13/2025 1:00 PM EDT Office Visit [facility] MEDICINE [address] [place] [address] Wojciech Li MD 230 [place] [address] 04/07/2025 2:30 PM EDT Office Visit [facility] OPTOMETRY [address] [place] [address] Moreno, Tyra, OD 230 [place] [address] documented as of this encounter Procedures Procedure [...] documented as of this encounter Care Teams Solar Installation Crew Supervisor Relationship Specialty Start Date End Date Wojciech Li MD [address] [place] [address] PCP - General Internal Medicine 06/01/14 03/04/24 Wojciech iL MD [address] [facility] [place] [address] PCP - General Internal Medicine 03/12/24 03/12/24 Wojciech Li MD [address] [place] [address] PCP - General Internal Medicine 04/12/24 documented as of this encounter
--- OUTSIDE RECORDS SUMMARY | 2024-12-17 11:50 | XMS_ITS | Encounter Summary ---
Author Organization [email or web address] Address 75 [facility] 7t [place] [address] Care Team Providers Care Geological Science Teacher Name Role Phone Wojciech Li MD Primary Care Provide r Reason for Visit * Reason Comments Med Refill Encounter Details Date Type Department Care Team (Late st Contact Info) Description 12/03/2024 Refill [facility] MEDICINE 230 [place], [place] [phone] Wojciech Li MD 230 [place], [place] [phone] Other chronic pain; Chronic midline low back [...] EST Office Visit [facility] MEDICINE [address] [place] [address] 01/06/2025 9:00 AM EDT Telemedicine [facility] MEDICINE [address] [place] [address] 01/13/2025 1:00 PM EDT Office Visit [facility] MEDICINE [address] [place] [address] Wojciech Li MD 230 [place] [address] 04/07/2025 2:30 PM EDT Office Visit [facility] OPTOMETRY [address] [place] [address] Tyra Mayer, OD [address] [place] [address] documented as of this encounter Visit Diagnoses Diagnosis Other chronic pain Chronic midline low back pain without sciatica documented in this encounter Additional Health Concerns Assessment Noted Time PHQ-9 Depression Total Score: 9 09/14/20 24 1:06 PM EST documented as of this encounter Care Teams Geological Science Teacher Relationship Specialty Start Date End Date Wojciech Li MD 230 [place] [address] PCP - General Internal Medicine 04/12/24 documented as of this encounter
--- OUTSIDE RECORDS SUMMARY | 2024-12-17 11:50 | XMS_ITS | Encounter Summary ---
Author Organization [employer] Address 75 [facility] 7t [place] [address] Care Team Providers Care Customer Service Clerk Name Role Phone Wojciech Li MD Primary Care Provide r Reason for Visit * Reason Comments Med Refill Encounter Details Date Type Department Care Team (Late st Contact Info) Description 11/23/2024 Refill [facility] MEDICINE 230 [place], [place] [phone] Wojciech Li MD 230 [place], [place] [phone] Type 2 diabetes mellitus without complication, unspecified whether shelter insulin use ([facility]) Social History Tobacco Use Types Packs/Day [...] Description 12/21/2024 11:00 AM EST Office Visit [facility] MEDICINE [address] [place] [address] 01/06/2025 9:00 AM EDT Telemedicine [facility] MEDICINE 230 [place] [address] 01/13/2025 1:00 PM EDT Office Visit [facility] MEDICINE 230 [place] [address] Wojciech Li MD 230 [place] [address] 04/07/2025 2:30 PM EDT Office Visit [facility] OPTOMETRY [address] [place] [address] Tyra Mayer, OD 230 [place] [address] documented as of this encounter Visit Diagnoses Diagnosis Type 2 diabetes mellitus without complication, unspecified whether long distance operator insulin use ([facility]) documented in this encounter Additional Health Concerns Assessment Noted Time PHQ-9 Depression Total Score: 9 09/14/20 24 1:06 PM EST documented as of this encounter Care Teams Customer Service Clerk Relationship Specialty Start Date End Date Wojciech Li MD 230 [place] [address] PCP - General Internal Medicine 04/12/24 documented as of this encounter
--- OUTSIDE RECORDS SUMMARY | 2024-12-17 11:50 | XMS_ITS | Encounter Summary ---
Author Organization [employer] Address 75 [facility] 7t [place] [address] Care Team Providers Care Transition Assistant Name Role Phone Wojciech Li MD Primary Care Provide r Reason for Visit * Reason Comments Med Refill Encounter Details Date Type Department Care Team ([facility] st Contact Info) Description 12/06/2024 Refill [facility] MEDICINE 230 [place], [place] [phone] Wojciech Li MD 230 [place] [address] Low vitamin D level Social History Tobacco Use Types Packs/Day Years [...] with others, in a hotel, in a assisted, living outside on the street, on a [...] Description 12/21/2024 11:00 AM EST Office Visit [facility] MEDICINE [address] [place] [address] 01/06/2025 9:00 AM EDT Telemedicine [facility] MEDICINE 230 [place] [address] 01/13/2025 1:00 PM EDT Office Visit [facility] MEDICINE [address] [place] [address] Wojciech Li MD 230 [place] [address] 04/07/2025 2:30 PM EDT Office Visit [facility] OPTOMETRY [address] [place] [address] [phone] Tyra Mayer, DIEUDONNE 230 [place] [address] documented as of this encounter Visit Diagnoses Diagnosis Low vitamin D level documented in this encounter Additional Health Concerns Assessment Noted Time PHQ-9 Depression Total Score: 9 09/14/20 24 1:06 PM EST documented as of this encounter Care Teams Transition Assistant Relationship Specialty Start Date End Date Wojciech Li MD 230 [place] [address] PCP - General Internal Medicine 04/12/24 documented as of this encounter
--- OUTSIDE RECORDS SUMMARY | 2024-12-17 11:50 | XMS_ITS | Encounter Summary ---
Author Organization [employer] Address 75 [facility] 7t [place] [address] Care Team Providers Care Kicking Machine Operator Name Role Phone Wojciech Li MD Primary Care Provide r Reason for Visit * Reason Onset Date Comments Med Refill 12/01/2024 Encounter Details Date Type Department Care Team (Late st Contact Info) Description 12/01/2024 Refill [facility] MEDICINE 230 [place] [address] Wojciech Li MD 230 [place] [address] Chronic midline low back pain without sciatica [...] encounter Miscellaneous Notes * Telephone Encounter - Chauncey Chavarria - 12/01/2024 1:16 PM EST TC from pt requesting medication refill. Medications needing refill : oxyCODONE (Roxicodone) 5 MG immediate release tablet To be sent to: [facility] - [place], [place] - [address] [place] [address] documented in this encounter Plan of Treatment Upcoming Encounters Date Type Department Care Team (Late st Contact Info) Description 12/21/2024 11:00 AM EST Office Visit [facility] MEDICINE [address] [place] [address] 01/06/2025 9:00 AM EDT Telemedicine [facility] MEDICINE [address] [place] [address] 01/13/2025 1:00 PM EDT Office Visit [address] [address] Wojciech Li MD [address] [place] [address] 04/07/2025 2:30 PM EDT Office Visit [facility] OPTOMETRY [address] [place], [place] [phone] Tyra Mayer, OD 230 [place] [address] documented as of this encounter Visit Diagnoses Diagnosis Chronic midline low back pain without sciatica documented in this encounter Additional Health Concerns Assessment Noted Time PHQ-9 Depression Total Score: 9 09/14/20 24 1:06 PM EST documented as of this encounter Care Teams Kicking Machine Operator Relationship Specialty Start Date End Date Wojciech Li MD 230 [place] [address] PCP - General Internal Medicine 04/12/24 documented as of this encounter
--- OUTSIDE RECORDS SUMMARY | 2024-12-17 11:50 | XMS_ITS | Encounter Summary ---
Author Organization [employer] Address 75 [facility] 7t [place] [address] Care Team Providers Care Seismograph Observer Name Role Phone Wojciech Li MD Primary Care Provide r Reason for Visit * Reason Onset Date Comments Med Refill 12/06/2024 Encounter Details Date Type Department Care Team ([facility] st Contact Info) Description 12/06/2024 Telephone [facility] MEDICINE [address] [place] [address] Wojciech Li MD [address] [place] [address] Med Refill Social History Tobacco Use Types [...] with others, in a hotel, in a penitentiary, living outside on the street, on a [...] encounter Miscellaneous Notes * Telephone Encounter - Veronica Higginbotham - 12/06/2024 1:46 PM EST Pt walked in requesting refill on oxycodne and mapap documented in this encounter Plan of Treatment Upcoming Encounters Date Type Department Care Team (Late st Contact Info) Description 12/21/2024 11:00 AM EST Office Visit [facility] MEDICINE [address] [place] [address] 01/06/2025 9:00 AM EDT Telemedicine [facility] MEDICINE [address] [place] [address] 01/13/2025 1:00 PM EDT Office Visit [facility] MEDICINE [address] [place] [address] Wojciech Li MD [address] [place] [address] 04/07/2025 2:30 PM EDT Office Visit [facility] OPTOMETRY [address] [place] [address] Tyra Mayer, OD 230 [place] [address] documented as of this encounter Visit Diagnoses Not on filedocumented in this encounter Additional Health Concerns Assessment Noted Time PHQ-9 Depression Total Score: 9 09/14/20 24 1:06 PM EST documented as of this encounter Care Teams Seismograph Observer Relationship Specialty Start Date End Date Wojciech Li MD 230 [place] [address] PCP - General Internal Medicine 04/12/24 documented as of this encounter
--- OUTSIDE RECORDS SUMMARY | 2024-12-17 11:50 | XMS_ITS | Encounter Summary ---
Author Organization [employer] Address 75 [facility] 7t [place] [address] Care Team Providers Care Insurance And Financial Services Agent Name Role Phone Wojciech Li MD Primary Care Provide r Reason for Visit * Reason Comments Med Refill Encounter Details Date Type Department Care Team (Late st Contact Info) Description 12/01/2024 Refill [facility] MEDICINE [address] [place] [address] Dayanara Olmstead DO 230 [place], [place] [phone] Seasonal allergies Social History Tobacco Use Types [...] 11:00 AM EST Office Visit [facility] MEDICINE [address] [place] [address] 01/06/2025 9:00 AM EDT Telemedicine [facility] MEDICINE [address] [place] [address] 01/13/2025 1:00 PM EDT Office Visit [facility] MEDICINE [address] [place] [address] Wojciech Li MD 230 [place] [address] 04/07/2025 2:30 PM EDT Office Visit [facility] OPTOMETRY [address] [place] [address] [phone] Tyra Mayer, OD 230 [place] [address] documented as of this encounter Visit Diagnoses Diagnosis Seasonal allergies Allergic rhinitis, cause unspecified documented in this encounter Additional Health Concerns Assessment Noted Time PHQ-9 Depression Total Score: 9 09/14/20 24 1:06 PM EST documented as of this encounter Care Teams Insurance And Financial Services Agent Relationship Specialty Start Date End Date Wojciech Li MD [address] [place] [address] PCP - General Internal Medicine 04/12/24 documented as of this encounter
== END 2024-12-17 10:46 | disposition home or self-care (01) ==
LOC: HO.MAMMO 10:45
PROVIDERS: PCP Internal Medicine; Visit Provider Internal Medicine
DX: Z13.820 Encounter for screening for osteoporosis (principal); Z78.0 Asymptomatic menopausal state; M54.50 Low back pain, unspecified; G89.29 Other chronic pain
CPT/HCPCS: 77080

== ENCOUNTER → 2024-12-17 11:00 | Outpatient (BNV) | payer MEDICAID, SELFPAY | PROVIDERS: PCP Internal Medicine; Visit Provider Radiology Diagnostic Radiology | DX: E28.39 Other primary ovarian failure (principal) | CPT/HCPCS: 77080 ==

== ENCOUNTER 2024-12-19 00:09 | Emergency (ER) | payer MEDICAID, SELFPAY ==
--- NOTE | ~2024-12-19 | CT_ITS ---
CLINICAL HISTORY: pain, unable to bear weight CT pelvis without contrast Comparison: CR - XR HIP RT W PEL1V - 12/19/24 00:51 EST Findings: Pelvic contents unremarkable. Normal appendix. The bones are intact. Atherosclerotic vascular calcifications are noted. IMPRESSION: No acute findings. This document has been electronically signed by: Alejandro Durham MD, PHD on 12/19/2024 02:32:39
--- NOTE | ~2024-12-19 | XR_ITS ---
CLINICAL HISTORY: fall, pain 3 view, pelvis and right hip Comparison: None Findings: No acute fracture or dislocation. Moderate degenerative changes in the hips. The soft tissues are unremarkable. IMPRESSION: No acute findings. This document has been electronically signed by: Alejandro Durham MD, PHD on 12/19/2024 00:58:10
[2024-12-19 00:36] VITALS: BP 174/92; PULSE 83; RESP 20; TEMP 36.3; O2SAT 100; BMI 31.6
--- NOTE | 2024-12-19 00:54 | ECG_ITS ---
Test Reason : FALL Blood Pressure : */* mmHG Vent. Rate : 71 BPM Atrial Rate : 71 BPM P-R Int : 130 ms QRS Dur : 84 ms QT Int : 418 ms P-R-T Axes : 36 0 35 degrees QTcB Int : 454 ms Normal sinus rhythm Normal ECG When compared with ECG of 05-Dec-2024 02:18, Questionable change in QRS axis Referred By: Dalia Joshi Electronically Signed By: RIVAS GARCIA
--- OUTSIDE RECORDS SUMMARY | 2024-12-19 01:10 | XMS_ITS | Clinical Summary ---
Author Organization [facility] Address [address] [place] [address] Phone Care Team Providers Care Ship Loader Name Role Phone Dayanara Olmstead DO Primary Care Provider [phone]- [phone] Allergies No known active allergies Medications albuterol [...] PM EST Office Visit [facility] [address] [phone] Herman Oglesby, DPM Plantar fascial [...] PM EDT Office Visit [facility] [place] [address] [phone] Herman Oglesby, DPHaris [address] [address] Health Maintenance Due Date Last Done Comments [...] topic Insurance MEDICAID - [place] Care Teams Ship Loader Relationship Specialty Start Date End Date Dayanara Olmstead DO [address] [place] [address] PCP - General 04/02/24
--- OUTSIDE RECORDS SUMMARY | 2024-12-19 01:10 | XMS_ITS | Encounter Summary ---
Author Organization [facility] Address [address] [place] [address] Care Team Providers Care Pediatric Dentist Name Role Phone Dayanara Olmstead DO Primary Care Provider [phone] Reason for Referral * Imaging (Routine) - Pending Review Specialty Diagnoses / Procedures Referred By Contac t Referred To Contact Radiology Diagnoses Plantar fascial fibromatosis Contusion of left foot, subsequent encounter Procedures MR Foot wo Contrast Left Herman Oglesby DPM [address] [address] Phone: tel: fax: [facility] Referral ID Status Reason Start Date Expiration Date V isits Requested Visits Authorized [id number] Pending Review 12/06/2024 12/06/2025 1 1 Reason for Visit * Reason Comments Consult Left heel pain * Consultation (Routine) - Closed Specialty Diagnoses / Procedures Referred By Contact Referred To Contact Podiatry / Orthopaedic Surgery Diagnoses Pain of left heel Dayanaar Olmstead DO [address] [place], [place] Phone: tel: fax: Herman Oglesby DPM [address] [address] Phone: tel: fax: Referral ID Status Reason Start Date Expiration Date V isits Requested Visits Authorized [id number] Closed Specialty Services Required 10/05/2024 03/31/2025 6 6 Encounter Details Date Type Department Care Team (Late st Contact Info) Description 12/06/2024 3:15 PM EST Office Visit Orthopedic Surgery - [place] [address] [facility] [address] [place] [id number] Herman Oglesby DPM 175 [facility] [address] [place] [address] Plantar fascial fibromatosis (Primary Dx); Pain of [...] today for evaluation of left heel pain senior program analyst [id number] ROS: GENERAL: Pt denies nausea, fever, vomiting, [...] Upcoming Encounters Date Type Department Care Team ([facility] st Contact Info) Description 01/12/2025 1:30 PM EDT Office Visit Orthopedic Surgery - [place] [address] [phone] Herman Oglesby DPM [address] [address] Scheduled Orders Name Type Priority Associated Diagnoses [...] 12/06/2024 documented in this encounter Care Teams Pediatric Dentist Relationship Specialty Start Date End Date Dayanara Olmstead DO [address] [place] [address] PCP - General 04/02/24 documented as of this encounter
--- NOTE | 2024-12-19 01:24 | ED.FALL ---
HPI - Fall General Chief Complaint: Fall Stated Complaint: [facility] Fall R hip pain 08/05, no LOC/HS Time Seen by Provider: 12/19/24 00:15 Source: patient and EMS Mode of arrival: EMS Limitations: no limitations History of Present Illness ED Provider: Dr. Dalia Joshi HPI Narrative: Patient comes to the emergency room via ambulance from home. Patient states that she was sitting up from a standing position, patient's lightheaded and fell on the right side of her body. Patient states she landed pretty hard on the right side of her hip. Patient denies hitting her head or losing consciousness. Patient denies any shoulder pain. Patient denies being on blood thinners. Related Data Home Medications ?Medication ?Instructions ?Recorded ?Confirmed bupropion HCl 150 mg 24 hr tablet, 150 mg PO DAILY 10/06/20 05/23/24 extended release (Wellbutrin XL) cetirizine 10 mg tablet (Zyrtec) 10 mg PO DAILY 10/06/20 05/23/24 duloxetine 60 mg capsule,delayed 60 mg PO DAILY 10/06/20 05/23/24 release (Cymbalta) insulin glargine 100 unit/mL 26 unit subcut BEDTIME 10/06/20 05/23/24 subcutaneous solution (Lantus U-100 Insulin) mirtazapine 45 mg tablet 45 mg PO BEDTIME PRN Insomnia 10/06/20 05/23/24 montelukast 10 mg tablet 10 mg PO BEDTIME 10/06/20 05/23/24 (Singulair) prazosin 1 mg capsule 1 mg PO BEDTIME 10/06/20 05/23/24 ropinirole 1 mg tablet 1 mg PO BEDTIME 10/06/20 05/23/24 tiotropium bromide 18 mcg capsule 1 cap inhalation DAILY 10/06/20 05/23/24 with inhalation device (Spiriva with HandiHaler) fenofibrate micronized 134 mg 1 tab PO DAILY@1800 05/24/21 05/23/24 capsule fluticasone propionate 50 2 spray intranasal DAILY 05/24/21 05/23/24 mcg/actuation nasal spray,suspension albuterol sulfate 2.5 mg/3 mL 2.5 mg inhalation Q4H PRN wheezing 05/23/24 05/23/24 (0.083 %) solution for nebulization albuterol sulfate 90 mcg/actuation 2 puff inhalation Q4H PRN 05/23/24 05/23/24 aerosol inhaler (Ventolin HFA) Shortness Of Breath Or Wheezing baclofen 10 mg tablet 10 mg PO TID muscle spasm 05/23/24 05/23/24 clotrimazole 1 % topical cream 1 appl topical Q12H PRN Rash 05/23/24 05/23/24 diclofenac sodium 1 % topical gel 2 g topical QID PRN pain 05/23/24 05/23/24 dulaglutide 1.5 mg/0.5 mL 1.5 mg subcut TH@0900 05/23/24 05/23/24 subcutaneous pen injector (Trulicity) gabapentin 100 mg capsule 100 mg PO TID 05/23/24 05/23/24 lisinopril 20 mg tablet 20 mg PO DAILY 05/23/24 05/23/24 propranolol 40 mg tablet 40 mg PO BID 05/23/24 05/23/24 pseudoephedrine HCl 30 mg tablet 30 mg PO Q4H PRN congestion 05/23/24 05/23/24 (Sudogest) trazodone 50 mg tablet 50 mg PO BEDTIME PRN Insomnia 05/23/24 05/23/24 Previous Rx's ?Medication ?Instructions ?Recorded ondansetron 4 mg disintegrating 4 mg PO Q8H PRN nausea and 05/16/24 tablet vomiting #7 tabs famotidine 20 mg tablet 20 mg PO DAILY #30 tabs 05/24/24 hydrocodone 5 mg-acetaminophen 325 1 tab PO Q4-6H PRN pain #30 tabs 06/23/24 mg tablet yxachubuod-vaxmwobsuedpz-ophhfkjg 1 tab PO Q6H PRN haeadace #20 tabs 12/05/24 50 mg-325 mg-40 mg tablet sumatriptan succinate 50 mg tablet 50 mg PO Q2H PRN migraine headache 12/05/24 (Imitrex) #10 tabs cyclobenzaprine 10 mg tablet 10 mg PO TID PRN muscle spasm #10 12/19/24 tabs tramadol 50 mg tablet 50 mg PO BID PRN pain #7 tabs 12/19/24 Allergies Allergy/AdvReac Type Severity Reaction Status Date / Time ENVIRONMENTAL Allergy Mild Dry Eye Uncoded 12/19/24 00:38 Review of Systems Review of Systems: Constitutional : No Weight loss, No Fever, No Chills, No Night Sweats, No Fatigue, No Malaise ENT/Mouth : No Hearing loss, No Ear Pain, No Nasal Congestion, No Sinus Pain, No Hoarseness, No sore throat, No Rhinorrhea, No Swallowing Difficulty Eyes: No Eye Pain, No Swelling, No Redness, No Foreign Body, No Discharge, No Vision Changes Cardiovascular : No Chest Pain, No SOB, No Dyspnea on Exertion, No Orthopnea, No Edema, No Palpitations Respiratory : No Cough, No Sputum, No Wheezing, No Smoke Exposure, No Dyspnea Gastrointestinal : No Nausea, No Vomiting, No Diarrhea, No Constipation, No abdominal Pain, No Hematochezia, No Melena Genitourinary : no irregular bleeding, No Dysuria, No Urinary Frequency, No Hematuria, No Urinary Incontinence, No Urgency, No Flank Pain, No Urinary Flow Changes, No Hesitancy Musculoskeletal : complaining of severe right hip pain,No Myalgias, No Joint Swelling Skin : No Skin Lesions, No rash Neuro : No Weakness, No Numbness, No Paresthesias, No Loss of Consciousness, No headache, complaining of dizziness with standing up quickly Psych : No Anxiety/Panic, No Depression, No SI/HI/AH/VH, No Social Issues, Heme/Lymph: No Bruising, No Bleeding,No Lymphadenopathy Endocrine : No Polyuria, No Polydipsia, No Temperature Intolerance PMFSH Past Medical History Medical History Hemiplegic migraine HLD (hyperlipidemia) HTN (hypertension) Migraines Sciatica Asthma COPD (chronic obstructive pulmonary disease) Diabetes Surgical History Hx of colonoscopy History of esophagogastroduodenoscopy (EGD) Hx laparoscopic cholecystectomy History of ear surgery H/O: hysterectomy Family History Family History Sister Migraine Social History Social History Household Members: None Housing: Apartment Do you presently have visiting nurse or other home services: No Alcohol intake: never Patient Tobacco Use Status: Current everyday Tobacco user Tobacco use type: Cigarette Cigarette Packs Per Day: 0.4 Cigarettes Per Day: 7 Years Smoked: 20 Smoked in Last 30 Days: No Second Hand Smoke Exposure: Yes Use of substances other than those prescribed or required for medical reasons: No Advance Directives: Yes Advance Directives on File: Yes Advance Directives Date on File: 05/25/24 Do you have a plan to hurt others: No Plan Patient : No service: No Current occupational status: other Physical Exam Vital Signs: Vital Signs: Last Vital Signs Temp 97.4 F 12/19/24 00:36 Pulse 83 12/19/24 00:36 Resp 20 12/19/24 00:36 BP 174/92 H 12/19/24 00:36 Pulse Ox 100 12/19/24 00:36 BMI result Body Mass Index 31.6 Const: Other: Appearance: Alert. Oriented X3. crying inconsolably Eyes: Pupils equal, round and reactive to light. ENT: Pharynx normal. Neck: Normal inspection. Neck supple. No lymph nodes noted. No crepitus CVS: Normal heart rate and rhythm. Pulses normal. Normal S1 and S2 Respiratory: No respiratory distress. Breath sounds normal. No Wheezing. No rales Abdomen: Soft and nontender. No rigidity. No distention. Skin: Skin warm and dry. Normal skin color. Normal skin turgor. Extremities: No lower extremity edema. No Lacerations. No Rash, patient able to bear weight, able to get up from the wheelchair walk towards the bathroom sit and stand Neuro: Oriented X 3. No motor deficit. No sensory deficit. Moving all extremities. No slurred speech. CN 2 through 12 grossly intact Psych: calm, very anxious Course Course Course Narrative: patient very anxious, crying inconsolably. Patient being given p.o. lorazepam and oxycodone. All of patient's labs and imaging pending. Medications Administered Discontinued Medications Generic Name Dose Route Start Last Admin Trade Name Freq PRN Reason Stop Dose Admin Acetaminophen 975 mg 12/19/24 04:46 12/19/24 05:16 Acetaminophen 325 Mg Tablet PO 12/19/24 04:47 975 mg ONCE ONE Administration Lorazepam 1 mg 12/19/24 00:54 12/19/24 02:22 Lorazepam 1 Mg Tablet PO 12/19/24 00:55 1 mg ONCE ONE Administration Lorazepam 1 mg 12/19/24 01:28 02/23/25 02:23 Lorazepam 1 Mg Tablet PO 12/19/24 01:29 Not Given ONCE ONE Oxycodone HCl 5 mg 12/19/24 00:54 12/19/24 02:22 Oxycodone Hcl Immed Release 5 Mg Tablet PO 12/19/24 00:55 5 mg ONCE ONE Administration Oxycodone HCl 5 mg 12/19/24 01:28 12/19/24 02:23 Oxycodone Hcl Immed Release 5 Mg Tablet PO 12/19/24 01:29 Not Given ONCE ONE Medical Decision Making Medical Decision Making [facility] Narrative: X-ray of the hip does not show any acute abnormality. Patient is still crying inconsolably despite receiving lorazepam and oxycodone, we will repeat another dose. Patient's blood pressure in the 170s, oxygen saturation 100% on room air. All other vitals stable x-ray did not show any abnormality. CT scan was Ordered to rule out any fractures that the extra may have missed. CT scan does not show any acute abnormality. Overall, patient has stopped crying. However, when we tried to get up the patient to walk, patient states it was too painful and refused to walk. physical therapy /case management was considered. Initially she was not PT case management. However, at this time, 06:20, patient states that she feels better, patient is ambulating by herself, uses a walker which she does at baseline. Patient ready for discharge at this time, 06:20, physician observation and Differential Diagnosis Differential Diagnoses: The differential diagnosis associated with the presentation includes ( hip contusion, hip fraction) Lab Data [facility] Lab Attestation statement: I reviewed the patient's lab results. 12/19/24 02:28 12/19/24 02:28 Labs: Lab Results 12/19/24 12/19/24 Range/Units 02:28 06:10 WBC 7.9 (4.8-10.8) X10*3/uL RBC 3.91 L (4.20-5.50) X10*6/uL Hgb 12.5 (12.0-16.0) g/dl Hct 34.0 L (37.0-47.0) % MCV 87.0 (80.0-98.0) fL MCH 32.0 (27.0-33.0) pg MCHC 36.8 H (31.0-35.0) g/dl RDW 12.5 (11.0-16.0) % Plt Count 275 (160-400) X10*3/uL MPV 10.2 (9.4-12.3) fL Immature Gran % (Auto) 0.4 (0.0-0.4) % Neut % (Auto) 56.1 (45-73) % Lymph % (Auto) 34.5 (20-40) % [place] % (Auto) 6.5 (2-11) % Eos % (Auto) 2.0 (0-4) % Baso % (Auto) 0.5 (0-2) % Lymph # (Auto) 2.7 (1.2-4.9) X10*3/uL [place] # (Auto) 0.5 (0.1-1.2) X10*3/uL Eos # (Auto) 0.2 (0.0-0.4) X10*3/uL Baso # (Auto) 0.0 (0.0-0.2) X10*3/uL Abs Immat Gran (auto) 0.03 (0.00-0.03) X10*3/uL Absolute Neuts (auto) 4.4 (2.0-8.3) x10*3/uL Absolute Nucleated RBC 0.000 (0.0-0.012) X10*3/uL Nucleated RBC % (auto) 0.0 (0.0-0.2) /100WBC Sodium 140 (135-145) mmol/L Potassium 3.6 (3.3-5.1) mmol/L Chloride 108 (96-108) mmol/L Carbon Dioxide 23 (22-29) mmol/L Anion Gap 13 (12-20) BUN 14 (9-16) mg/dL Creatinine 0.69 (0.5-1.4) mg/dL Estim Creat Clear Calc 97.4 Estimated GFR > 60 POC Glucose 106 (60-115) mg/dL Random Glucose 123 H (60-115) mg/dL Calcium 9.3 D (8.4-10.2) mg/dL Total Bilirubin 0.3 (0.0-1.0) mg/dL Direct Bilirubin < 0.1 (0.0-0.5) mg/dL AST 20 (5-31) U/L ALT 25 (0-31) U/L Alkaline Phosphatase 122 H (39-117) U/L Troponin I High Sens < 2.7 (<3.5-17.0) ng/L Total Protein 7.4 (6.5-8.0) g/dL Albumin 4.0 (3.5-5.0) g/dL Independent Interpretation I performed an independent interpretation of an: Plain X-Ray and CT Scan Radiology Impression Discussion of test interpretation with radiology: I have reviewed the radiologist's reading. Radiologist Impression: Pelvic contents unremarkable. Normal appendix. The bones are intact. Atherosclerotic vascular calcifications are noted. Critical Care Time Critical Care Time Critical Care Time: Yes Total Critical Care Time: 45 Attestation: I have personally provided critical care time. Time includes review of lab data, radiology results, discussion with consultants, and monitoring for potential decompensation. Intervention performed as documented. Discharge Plan Discharge Clinical Impression: Contusion of hip, Anxiety Patient Disposition: Home, Self-Care Instructions: Contusion in Adults (ED), Anxiety (ED) Additional Instructions: Please follow-up with your primary care physician tomorrow. If you have any worsening or new symptoms, please return to the emergency room or call 911 Prescriptions: New tramadol 50 mg tablet 50 mg PO BID PRN (Reason: pain) Qty: 7 0RF cyclobenzaprine 10 mg tablet 10 mg PO TID PRN (Reason: muscle spasm) Qty: 10 0RF No Action ropinirole 1 mg Tablet 1 mg PO BEDTIME insulin glargine [Lantus U-100 Insulin] 100 unit/mL Solution 26 unit SUBCUT BEDTIME cetirizine [Zyrtec] 10 mg Tablet 10 mg PO DAILY prazosin 1 mg Capsule 1 mg PO BEDTIME mirtazapine 45 mg Tablet 45 mg PO BEDTIME PRN (Reason: Insomnia) montelukast [Singulair] 10 mg Tablet 10 mg PO BEDTIME bupropion HCl [Wellbutrin XL] 150 mg Tablet Extended Release 24 Hr 150 mg PO DAILY tiotropium bromide [Spiriva with HandiHaler] 18 mcg Capsule, W/Inhalation Device 1 cap INHALATION DAILY duloxetine [Cymbalta] 60 mg Capsule,Delayed Release(Dr/Ec) 60 mg PO DAILY fenofibrate micronized 134 mg capsule 1 tab PO DAILY@1800 fluticasone propionate 50 mcg/actuation spray,suspension 2 spray intranasal DAILY albuterol sulfate 2.5 mg /3 mL (0.083 %) solution for nebulization 2.5 mg inhalation Q4H PRN (Reason: wheezing) trazodone 50 mg tablet 50 mg PO BEDTIME PRN (Reason: Insomnia) lisinopril 20 mg tablet 20 mg PO DAILY propranolol 40 mg tablet 40 mg PO BID baclofen 10 mg tablet 10 mg PO TID pseudoephedrine HCl [Sudogest] 30 mg tablet 30 mg PO Q4H PRN (Reason: congestion) gabapentin 100 mg capsule 100 mg PO TID albuterol sulfate [Ventolin HFA] 90 mcg/actuation HFA aerosol inhaler 2 puff INHALATION Q4H PRN (Reason: Shortness Of Breath Or Wheezing) clotrimazole 1 % cream 1 appl topical Q12H PRN (Reason: Rash) diclofenac sodium 1 % gel 2 g topical QID PRN (Reason: pain) Trulicity 1.5 mg/0.5 mL pen injector 1.5 mg subcut TH@0900 famotidine 20 mg Tablet 20 mg PO DAILY Qty: 30 0RF ondansetron 4 mg tablet,disintegrating 4 mg PO Q8H PRN (Reason: nausea and vomiting) Qty: 7 0RF sumatriptan succinate [Imitrex] 50 mg tablet 50 mg PO Q2H PRN (Reason: migraine headache) Qty: 10 0RF Rx Instructions: do not exceed 2 doses per 24 hrs qxywzdflwf-mhtxwpdyrmqez-zflv 50-325-40 mg tablet 1 tab PO Q6H PRN (Reason: haeadace) Qty: 20 0RF hydrocodone-acetaminophen 5-325 mg tablet 1 tab PO Q4-6H PRN (Reason: pain) Qty: 30 0RF Rx Instructions: Partial Fill upon patient request. Print Language: Mauritanian
[2024-12-19] MEDS: LORazepam 1 MG TABLET PO (02:22)
[2024-12-19] MEDS: oxyCODONE HCl Immed Release 5 MG TABLET PO (02:22)
[2024-12-19 02:32] LABS: MANUAL DIFF FLAG NO
[2024-12-19 02:33] LABS: Basophils Percent Auto 0.5 % (0-2); Eosinophils Absolute Auto 0.2 X10*3/uL (0.0-0.4); Hemoglobin 12.5 g/dl (12.0-16.0); Imm Gran Abs Auto 0.03 X10*3/uL (0.00-0.03); Imm Gran Pct Auto 0.4 % (0.0-0.4); Lymphocytes Absolute Auto 2.7 X10*3/uL (1.2-4.9); Lymphocytes Percent Auto 34.5 % (20-40); Mean Corpuscular HGB Conc 36.8 g/dl (31.0-35.0); Mean Platelet Volume 10.2 fL (9.4-12.3); Monocytes Absolute Auto 0.5 X10*3/uL (0.1-1.2); Monocytes Percent Auto 6.5 % (2-11); Neutrophils Absolute Auto 4.4 x10*3/uL (2.0-8.3); Neutrophils Percent Auto 56.1 % (45-73); Platelet Count 275 X10*3/uL (160-400); Red Blood Count 3.91 X10*6/uL (4.20-5.50); Red Cell Distribution Width 12.5 % (11.0-16.0); White Blood Count 7.9 X10*3/uL (4.8-10.8)
[2024-12-19 02:58] LABS: Alanine Aminotransferase 25 U/L (0-31); Anion Gap 13 (12-20); Aspartate Amino Transferase 20 U/L (5-31); Bilirubin Direct < 0.1 mg/dL (0.0-0.5); Bilirubin Total 0.3 mg/dL (0.0-1.0); Blood Urea Nitrogen 14 mg/dL (9-16); Calcium 9.3 mg/dL (8.4-10.2); Carbon Dioxide 23 mmol/L (22-29); Chloride 108 mmol/L (96-108); Creatinine Clr Calc Pharmacy 97.4; Estimated Glomerular Filt Rate > 60; Glucose Random 123 mg/dL (60-115); Potassium 3.6 mmol/L (3.3-5.1); Sodium 140 mmol/L (135-145); Total Protein 7.4 g/dL (6.5-8.0); Troponin-I High Sensitivity < 2.7 ng/L (<3.5-17.0)
[2024-12-19 04:02] LABS: Alkaline Phosphatase 122 U/L (39-117)
[2024-12-19] MEDS: Acetaminophen 325 MG TABLET 975 MG PO (05:16)
[2024-12-19 06:16] LABS: Glucose, Whole Blood 106 mg/dL (60-115)
[2024-12-19 07:04] LABS: Appearance Urine Turbid; Color Urine Yellow; Glucose Urine UA Negative (Negative); Leukocyte Esterase Urine Large (3+) (Negative); Nitrite Urine Negative (Negative); PH 5.5 (5.0-9.0); Specific Gravity - Urine 1.015 (1.005-1.025); UMIC TRIGGER UACC YES; Urine Blood Small (1+) (Negative); Urine Ketones Negative (Negative); Urine Protein Negative (Neg-Trace)
[2024-12-19 07:22] LABS: Bacteria Urine 3+ (None Seen); Hyaline Casts Urine 0-2 /LPF (0-2); UACC Culture Trigger YES; WBC Urine >50 /HPF (0-5)
[2024-12-19] MEDS: Ondansetron ODT 4 MG TAB.RAPDIS TRANSLINGU (07:46)
--- NOTE | 2024-12-19 13:28 | MHC.CM.PN ---
CM RECEIVED ED CONSULT. PT LEFT ED WITHOUT BEING SEEN BY CM.
== END 2024-12-19 07:45 | disposition home or self-care (01) ==
PROVIDERS: Emergency Provider Emergency Medicine
DX: S70.01XA Contusion of right hip, initial encounter (principal); R42 Dizziness and giddiness; F41.1 Generalized anxiety disorder; W18.30XA Fall on same level, unspecified, initial encounter; Y93.9 Activity, unspecified; Y92.89 Other specified places as the place of occurrence of the external cause; Y99.8 Other external cause status; Z79.899 Other long term (current) drug therapy
CPT/HCPCS: 36415; 73502; 73700; 80048; 80076; 81001; 81003; 82947; 84484; 85025; 87086; 93005; 99285

== ENCOUNTER → 2024-12-19 00:40 | Outpatient (BNV) | payer MEDICAID, SELFPAY | PROVIDERS: Emergency Provider Emergency Medicine; Visit Provider General Practice | DX: M25.551 Pain in right hip (principal) | CPT/HCPCS: 73502; 73700 ==

== ENCOUNTER → 2024-12-19 00:54 | Outpatient (BNV) | payer MEDICAID, SELFPAY | PROVIDERS: Emergency Provider Emergency Medicine; Visit Provider Internal Medicine | DX: Z13.6 Encounter for screening for cardiovascular disorders (principal); W19.XXXA Unspecified fall, initial encounter | CPT/HCPCS: 93010 ==

== ENCOUNTER 2024-12-28 22:02 | Emergency (ER) | payer MEDICAID, SELFPAY ==
--- NOTE | ~2024-12-28 | CT_ITS ---
CLINICAL HISTORY: Right flank pain CT abdomen and pelvis without contrast Comparison: CT/SR - CT ABDOMEN PELVIS W IV CON - 05/23/24 02:47 EDT Findings: The lung bases are clear. Spleen measures 13.5 cm in length, upper limits of normal in size. Liver is prominent in size. There is a prominent Jim's lobe. The gallbladder is absent. Pancreas, adrenal glands and kidneys are unremarkable. There is no hydronephrosis. There is a subcentimeter hyperdense cyst in the interpolar left kidney posteriorly. In the anterior left kidney interpolar segment there is a 1 cm cyst. No ureteral stones. No bowel obstruction, pneumoperitoneum, or pneumatosis. Wall calcifications in the abdominal aorta. No aneurysm. Pelvic contents unremarkable. Normal appendix. Osseous structures are unremarkable. There are interbody spacers at L4-5 with moderate degenerative changes. IMPRESSION: No acute findings. Borderline hepatosplenomegaly. This document has been electronically signed by: Miguelangel Linton MD on 12/29/2024 02:05:50
[2024-12-28 22:34] VITALS: PULSE 96; RESP 16; TEMP 37; BMI 31.7
[2024-12-28 23:00] LABS: MANUAL DIFF FLAG NO
[2024-12-28 23:01] LABS: Basophils Percent Auto 0.3 % (0-2); Eosinophils Absolute Auto 0.2 X10*3/uL (0.0-0.4); Eosinophils Percent Auto 1.9 % (0-4); Hemoglobin 13.2 g/dl (12.0-16.0); Imm Gran Abs Auto 0.01 X10*3/uL (0.00-0.03); Imm Gran Pct Auto 0.1 % (0.0-0.4); Lymphocytes Absolute Auto 2.7 X10*3/uL (1.2-4.9); Lymphocytes Percent Auto 34.5 % (20-40); Mean Corpuscular HGB Conc 36.7 g/dl (31.0-35.0); Mean Corpuscular Hemoglobin 32.5 pg (27.0-33.0); Mean Corpuscular Volume 88.7 fL (80.0-98.0); Mean Platelet Volume 10.2 fL (9.4-12.3); Monocytes Absolute Auto 0.5 X10*3/uL (0.1-1.2); Monocytes Percent Auto 6.4 % (2-11); Neutrophils Absolute Auto 4.5 x10*3/uL (2.0-8.3); Neutrophils Percent Auto 56.8 % (45-73); Platelet Count 290 X10*3/uL (160-400); Red Blood Count 4.06 X10*6/uL (4.20-5.50); Red Cell Distribution Width 12.7 % (11.0-16.0)
[2024-12-28 23:02] LABS: Appearance Urine Clear; Color Urine Yellow; Glucose Urine UA Negative (Negative); Leukocyte Esterase Urine Moderate (2+) (Negative); Nitrite Urine Negative (Negative); PH 5.5 (5.0-9.0); Specific Gravity - Urine <= 1.005 (1.005-1.025); UMIC TRIGGER UACC YES; Urine Blood Trace (Negative); Urine Ketones Negative (Negative); Urine Protein Negative (Neg-Trace)
[2024-12-28 23:14] LABS: Alanine Aminotransferase 27 U/L (0-31); Albumin Level 4.2 g/dL (3.5-5.0); Alkaline Phosphatase 131 U/L (39-117); Anion Gap 15 (12-20); Aspartate Amino Transferase 20 U/L (5-31); Bilirubin Total 0.3 mg/dL (0.0-1.0); Blood Urea Nitrogen 17 mg/dL (9-16); Calcium 8.9 mg/dL (8.4-10.2); Carbon Dioxide 21 mmol/L (22-29); Chloride 105 mmol/L (96-108); Creatinine Clr Calc Pharmacy 85.3; Estimated Glomerular Filt Rate > 60; Glucose Random 245 mg/dL (60-115); Potassium 4.1 mmol/L (3.3-5.1); Sodium 137 mmol/L (135-145); Total Protein 8.1 g/dL (6.5-8.0)
[2024-12-28 23:21] LABS: Bacteria Urine None Seen (None Seen); Hyaline Casts Urine 0-2 /LPF (0-2); RBC Urine 0-2 /HPF (0-2); Squamous Epithelial Cell Urine 0-2 /HPF (0-2); UACC Culture Trigger YES; WBC Urine 21-50 /HPF (0-5)
[2024-12-29 00:43] VITALS: BP 124/82; PULSE 91; RESP 20; TEMP 36.4; O2SAT 97
[2024-12-29 02:39] VITALS: BP 124/82; PULSE 83; RESP 16; TEMP 36.8; O2SAT 96
--- NOTE | 2024-12-29 05:07 | PC.NURSE ---
pt awaiting to see provider aware.
--- NOTE | 2024-12-29 05:20 | ED_ITS ---
HPI - General Adult General Chief complaint: General Medical Stated complaint: back pain Time Seen by Provider: 12/29/24 05:16 Source: patient Mode of arrival: ambulatory Limitations: no limitations History of Present Illness ED Provider: Dr. Dalia Joshi HPI narrative: Patient comes to the emergency room complaining of right lower back pain, right flank pain. Patient states she has some burning with urination and frequency. Patient has fever chills, denies any trauma, other than 2 weeks ago she had a fall for which she was evaluated. Patient denies hematuria. Related Data Home Medications ?Medication ?Instructions ?Recorded ?Confirmed bupropion HCl 150 mg 24 hr tablet, 150 mg PO DAILY 10/06/20 05/23/24 extended release (Wellbutrin XL) cetirizine 10 mg tablet (Zyrtec) 10 mg PO DAILY 10/06/20 05/23/24 duloxetine 60 mg capsule,delayed 60 mg PO DAILY 10/06/20 05/23/24 release (Cymbalta) insulin glargine 100 unit/mL 26 unit subcut BEDTIME 10/06/20 05/23/24 subcutaneous solution (Lantus U-100 Insulin) mirtazapine 45 mg tablet 45 mg PO BEDTIME PRN Insomnia 10/06/20 05/23/24 montelukast 10 mg tablet 10 mg PO BEDTIME 10/06/20 05/23/24 (Singulair) prazosin 1 mg capsule 1 mg PO BEDTIME 10/06/20 05/23/24 ropinirole 1 mg tablet 1 mg PO BEDTIME 10/06/20 05/23/24 tiotropium bromide 18 mcg capsule 1 cap inhalation DAILY 10/06/20 05/23/24 with inhalation device (Spiriva with HandiHaler) fenofibrate micronized 134 mg 1 tab PO DAILY@1800 05/24/21 05/23/24 capsule fluticasone propionate 50 2 spray intranasal DAILY 05/24/21 05/23/24 mcg/actuation nasal spray,suspension albuterol sulfate 2.5 mg/3 mL 2.5 mg inhalation Q4H PRN wheezing 05/23/24 05/23/24 (0.083 %) solution for nebulization albuterol sulfate 90 mcg/actuation 2 puff inhalation Q4H PRN 05/23/24 05/23/24 aerosol inhaler (Ventolin HFA) Shortness Of Breath Or Wheezing baclofen 10 mg tablet 10 mg PO TID muscle spasm 05/23/24 05/23/24 clotrimazole 1 % topical cream 1 appl topical Q12H PRN Rash 05/23/24 05/23/24 diclofenac sodium 1 % topical gel 2 g topical QID PRN pain 05/23/24 05/23/24 dulaglutide 1.5 mg/0.5 mL 1.5 mg subcut TH@0900 05/23/24 05/23/24 subcutaneous pen injector (Trulicity) gabapentin 100 mg capsule 100 mg PO TID 05/23/24 05/23/24 lisinopril 20 mg tablet 20 mg PO DAILY 05/23/24 05/23/24 propranolol 40 mg tablet 40 mg PO BID 05/23/24 05/23/24 pseudoephedrine HCl 30 mg tablet 30 mg PO Q4H PRN congestion 05/23/24 05/23/24 (Sudogest) trazodone 50 mg tablet 50 mg PO BEDTIME PRN Insomnia 05/23/24 05/23/24 Previous Rx's ?Medication ?Instructions ?Recorded ondansetron 4 mg disintegrating 4 mg PO Q8H PRN nausea and 05/16/24 tablet vomiting #7 tabs famotidine 20 mg tablet 20 mg PO DAILY #30 tabs 05/24/24 hydrocodone 5 mg-acetaminophen 325 1 tab PO Q4-6H PRN pain #30 tabs 06/23/24 mg tablet [id number]-[id number] 1 tab PO Q6H PRN haeadace #20 tabs 12/05/24 50 mg-325 mg-40 mg tablet sumatriptan succinate 50 mg tablet 50 mg PO Q2H PRN migraine headache 12/05/24 (Imitrex) #10 tabs cyclobenzaprine 10 mg tablet 10 mg PO TID PRN muscle spasm #10 12/19/24 tabs tramadol 50 mg tablet 50 mg PO BID PRN pain #7 tabs 12/19/24 cefuroxime axetil 250 mg tablet 250 mg PO BID #9 tabs 12/29/24 cyclobenzaprine 10 mg tablet 10 mg PO TID PRN muscle spasm #10 12/29/24 tabs ketorolac 10 mg tablet 10 mg PO TID PRN pain 5 days #12 12/29/24 tabs Allergies Allergy/AdvReac Type Severity Reaction Status Date / Time ENVIRONMENTAL Allergy Mild Dry Eye Uncoded 12/28/24 22:34 Review of Systems 2 Review of Systems: Constitutional : No Weight loss, No Fever, No Chills, No Night Sweats, No Fatigue, No Malaise ENT/Mouth : No Hearing loss, No Ear Pain, No Nasal Congestion, No Sinus Pain, No Hoarseness, No sore throat, No Rhinorrhea, No Swallowing Difficulty Eyes: No Eye Pain, No Swelling, No Redness, No Foreign Body, No Discharge, No Vision Changes Cardiovascular : No Chest Pain, No SOB, No Dyspnea on Exertion, No Orthopnea, No Edema, No Palpitations Respiratory : No Cough, No Sputum, No Wheezing, No Smoke Exposure, No Dyspnea Gastrointestinal : No Nausea, No Vomiting, No Diarrhea, No Constipation, No abdominal Pain, No Hematochezia, No Melena Genitourinary : no irregular bleeding, No Dysuria, No Urinary Frequency, No Hematuria, No Urinary Incontinence, No Urgency, complaining of right-sided Flank Pain, No Urinary Flow Changes, No Hesitancy Musculoskeletal : No joint pain, No Myalgias, No Joint Swelling Skin : No Skin Lesions, No rash Neuro : No Weakness, No Numbness, No Paresthesias, No Loss of Consciousness, No Dizziness, No Headache Psych : No Anxiety/Panic, No Depression, No SI/HI/AH/VH, No Social Issues, Heme/Lymph: No Bruising, No Bleeding,No Lymphadenopathy Endocrine : No Polyuria, No Polydipsia, No Temperature Intolerance PMFSH Past Medical History Medical History Hemiplegic migraine HLD (hyperlipidemia) HTN (hypertension) Migraines Sciatica Asthma COPD (chronic obstructive pulmonary disease) Diabetes Surgical History Hx of colonoscopy History of esophagogastroduodenoscopy (EGD) Hx laparoscopic cholecystectomy History of ear surgery H/O: hysterectomy Family History Family History Sister Migraine Social History Social History Household Members: None Housing: Apartment Do you presently have visiting nurse or other home services: No Alcohol intake: never Patient Tobacco Use Status: Current everyday Tobacco user Tobacco use type: Cigarette Cigarette Packs Per Day: 0.4 Cigarettes Per Day: 7 Years Smoked: 20 Second Hand Smoke Exposure: Yes Advance Directives: Yes Advance Directives on File: Yes Advance Directives Date on File: 05/25/24 Do you have a plan to hurt others: No Plan service: No Current occupational status: other Physical Exam ED Vital Signs: Vital Signs - 24 hr 12/28/24 22:34 12/29/24 00:43 12/29/24 02:39 Temperature 98.6 F 97.6 F 98.3 F Pulse Rate 96 91 83 Respiratory Rate 16 20 16 Blood Pressure 124/82 124/82 Pulse Oximetry 97 96 Oxygen Delivery Method Room Air Room Air Room Air BMI result Body Mass Index 31.7 Const Other: Appearance: Alert. Oriented X3. No acute distress. Eyes: Pupils equal, round and reactive to light. ENT: Pharynx normal. Neck: Normal inspection. Neck supple. No lymph nodes noted. No crepitus CVS: Normal heart rate and rhythm. Pulses normal. Normal S1 and S2 Respiratory: No respiratory distress. Breath sounds normal. No Wheezing. No rales Abdomen: Soft and nontender. No rigidity. No distention. Back: Pain to palpation in the right middle back. No ecchymosis, no deformity. Skin: Skin warm and dry. Normal skin color. Normal skin turgor. Extremities: No lower extremity edema. No Lacerations. No Rash Neuro: Oriented X 3. No motor deficit. No sensory deficit. Moving all extremities. No slurred speech. CN 2 through 12 grossly intact Psych: calm, cooperative, very anxious Medical Decision Making Medical Decision Making MDM Narrative: My interpretation of labs, normal/baseline hematology and chemistry. Urinalysis shows trace blood, moderate leukocyte esterase, 21-50 white blood cells. However, patient has had 11 urine analysis done in the last few years. The initial urinalysis seems to be positive for UTI. However, the cultures did not grow bacteria. Patient's seems to be a chronic colonizer. Since patient has dysuria, some back pain, questionably pyelonephritis. We will go ahead and treat with antibiotics. Patient was given IM Toradol for the pain and cyclobenzaprine, patient's most likely source of pain is musculoskeletal. Patient's blood pressure stable, no fever. Sepsis not suspected Differential Diagnosis Differential Diagnoses: The differential diagnosis associated with the presentation includes (As above) Lab Data MDM Lab Attestation statement: I reviewed the patient's lab results. 12/28/24 22:55 12/28/24 22:55 Labs: Lab Results 12/28/24 Range/Units 22:55 WBC 8.0 (4.8-10.8) X10*3/uL RBC 4.06 L (4.20-5.50) X10*6/uL Hgb 13.2 (12.0-16.0) g/dl Hct 36.0 L (37.0-47.0) % MCV 88.7 (80.0-98.0) fL MCH 32.5 (27.0-33.0) pg MCHC 36.7 H (31.0-35.0) g/dl RDW 12.7 (11.0-16.0) % Plt Count 290 (160-400) X10*3/uL MPV 10.2 (9.4-12.3) fL Immature Gran % (Auto) 0.1 (0.0-0.4) % Neut % (Auto) 56.8 (45-73) % Lymph % (Auto) 34.5 (20-40) % Esmeralda % (Auto) 6.4 (2-11) % Eos % (Auto) 1.9 (0-4) % Baso % (Auto) 0.3 (0-2) % Lymph # (Auto) 2.7 (1.2-4.9) X10*3/uL Esmeralda # (Auto) 0.5 (0.1-1.2) X10*3/uL Eos # (Auto) 0.2 (0.0-0.4) X10*3/uL Baso # (Auto) 0.0 (0.0-0.2) X10*3/uL Abs Immat Gran (auto) 0.01 (0.00-0.03) X10*3/uL Absolute Neuts (auto) 4.5 (2.0-8.3) x10*3/uL Absolute Nucleated RBC 0.000 (0.0-0.012) X10*3/uL Nucleated RBC % (auto) 0.0 (0.0-0.2) /100WBC Sodium 137 (135-145) mmol/L Potassium 4.1 (3.3-5.1) mmol/L Chloride 105 (96-108) mmol/L Carbon Dioxide 21 L (22-29) mmol/L Anion Gap 15 (12-20) BUN 17 H (9-16) mg/dL Creatinine 0.79 (0.5-1.4) mg/dL Estim Creat Clear Calc 85.3 Estimated GFR > 60 Random Glucose 245 H (60-115) mg/dL Calcium 8.9 (8.4-10.2) mg/dL Total Bilirubin 0.3 (0.0-1.0) mg/dL AST 20 (5-31) U/L ALT 27 (0-31) U/L Alkaline Phosphatase 131 H (39-117) U/L Total Protein 8.1 H (6.5-8.0) g/dL Albumin 4.2 (3.5-5.0) g/dL Urine Color Yellow Urine Appearance Clear Urine pH 5.5 (5.0-9.0) Ur Specific [place] <= 1.005 (1.005-1.025) Urine Protein Negative (Neg-Trace) mg/dL Urine Glucose (UA) Negative (Negative) mg/dL Urine Ketones Negative (Negative) mg/dL Urine Blood Trace H (Negative) Urine Nitrite Negative (Negative) Ur Leukocyte Esterase Moderate (2+) H (Negative) Urine RBC 0-2 (0-2) /HPF Urine WBC 21-50 H (0-5) /HPF Ur Squamous Epith Cells 0-2 (0-2) /HPF Urine Bacteria None Seen (None Seen) Hyaline Casts 0-2 (0-2) /LPF Independent Interpretation I performed an independent interpretation of an: CT Scan Radiology Impression Discussion of test interpretation with radiology: I have reviewed the radiologist's reading. Radiologist Impression: The lung bases are clear. Spleen measures 13.5 cm in length, upper limits of normal in size. Liver is prominent in size. There is a prominent Jim's lobe. The gallbladder is absent. Pancreas, adrenal glands and kidneys are unremarkable. There is no hydronephrosis. There is a subcentimeter hyperdense cyst in the interpolar left kidney posteriorly. In the anterior left kidney interpolar segment there is a 1 cm cyst. No ureteral stones. No bowel obstruction, pneumoperitoneum, or pneumatosis. Wall calcifications in the abdominal aorta. No aneurysm. Pelvic contents unremarkable. Normal appendix. Osseous structures are unremarkable. There are interbody spacers at L4-5 with moderate degenerative changes. IMPRESSION: No acute findings. Borderline hepatosplenomegaly. Critical Care Time Critical Care Time Critical Care Time: Yes Total Critical Care Time: 35 Attestation: I have personally provided critical care time. Time includes review of lab data, radiology results, discussion with consultants, and monitoring for potential decompensation. Intervention performed as documented. Discharge Plan Discharge Clinical Impression: Flank pain Patient Disposition: Home, Self-Care Instructions: Flank Pain (ED) Additional Instructions: Please follow-up with your primary care physician tomorrow. If you have any worsening or new symptoms, please return to the emergency room or call 911 Prescriptions: New ketorolac 10 mg tablet 10 mg PO TID PRN (Reason: pain) 5 Days Qty: 12 0RF cefuroxime axetil 250 mg tablet 250 mg PO BID Qty: 9 0RF cyclobenzaprine 10 mg tablet 10 mg PO TID PRN (Reason: muscle spasm) Qty: 10 0RF No Action ropinirole 1 mg Tablet 1 mg PO BEDTIME insulin glargine [Lantus U-100 Insulin] 100 unit/mL Solution 26 unit SUBCUT BEDTIME cetirizine [Zyrtec] 10 mg Tablet 10 mg PO DAILY prazosin 1 mg Capsule 1 mg PO BEDTIME mirtazapine 45 mg Tablet 45 mg PO BEDTIME PRN (Reason: Insomnia) montelukast [Singulair] 10 mg Tablet 10 mg PO BEDTIME bupropion HCl [Wellbutrin XL] 150 mg Tablet Extended Release 24 Hr 150 mg PO DAILY tiotropium bromide [Spiriva with HandiHaler] 18 mcg Capsule, W/Inhalation Device 1 cap INHALATION DAILY duloxetine [Cymbalta] 60 mg Capsule,Delayed Release(Dr/Ec) 60 mg PO DAILY fenofibrate micronized 134 mg capsule 1 tab PO DAILY@1800 fluticasone propionate 50 mcg/actuation spray,suspension 2 spray intranasal DAILY albuterol sulfate 2.5 mg /3 mL (0.083 %) solution for nebulization 2.5 mg inhalation Q4H PRN (Reason: wheezing) trazodone 50 mg tablet 50 mg PO BEDTIME PRN (Reason: Insomnia) lisinopril 20 mg tablet 20 mg PO DAILY propranolol 40 mg tablet 40 mg PO BID baclofen 10 mg tablet 10 mg PO TID pseudoephedrine HCl [Sudogest] 30 mg tablet 30 mg PO Q4H PRN (Reason: congestion) gabapentin 100 mg capsule 100 mg PO TID albuterol sulfate [Ventolin HFA] 90 mcg/actuation HFA aerosol inhaler 2 puff INHALATION Q4H PRN (Reason: Shortness Of Breath Or Wheezing) clotrimazole 1 % cream 1 appl topical Q12H PRN (Reason: Rash) diclofenac sodium 1 % gel 2 g topical QID PRN (Reason: pain) Trulicity 1.5 mg/0.5 mL pen injector 1.5 mg subcut TH@0900 famotidine 20 mg Tablet 20 mg PO DAILY Qty: 30 0RF tramadol 50 mg tablet 50 mg PO BID PRN (Reason: pain) Qty: 7 0RF cyclobenzaprine 10 mg tablet 10 mg PO TID PRN (Reason: muscle spasm) Qty: 10 0RF ondansetron 4 mg tablet,disintegrating 4 mg PO Q8H PRN (Reason: nausea and vomiting) Qty: 7 0RF sumatriptan succinate [Imitrex] 50 mg tablet 50 mg PO Q2H PRN (Reason: migraine headache) Qty: 10 0RF Rx Instructions: do not exceed 2 doses per 24 hrs pqrwocuufe-tbubnzpphvxwf-gkte 50-325-40 mg tablet 1 tab PO Q6H PRN (Reason: haeadace) Qty: 20 0RF hydrocodone-acetaminophen 5-325 mg tablet 1 tab PO Q4-6H PRN (Reason: pain) Qty: 30 0RF Rx Instructions: Partial Fill upon patient request. Print Language: Upper Sorbian
[2024-12-29] MEDS: Ketorolac Tromethamine 60 MG/2 ML VIAL IM (05:29)
[2024-12-29] MEDS: Cyclobenzaprine HCl 10 MG TABLET PO (05:29)
[2024-12-29] MEDS: cefuroxime axetiL 250 MG TABLET PO (05:29)
[2024-12-29 05:33] VITALS: BP 124/82; PULSE 83; RESP 16; TEMP 36.8; O2SAT 96
--- NOTE | 2024-12-29 05:37 | PC.NURSE ---
pt was medicated by charge nurse Leatha, discharge paperwork and reviewed with charge nurse.
== END 2024-12-29 05:34 | disposition home or self-care (01) ==
PROVIDERS: Emergency Provider Emergency Medicine
DX: R10.9 Unspecified abdominal pain (principal); I10 Essential (primary) hypertension; E11.9 Type 2 diabetes mellitus without complications; J44.9 Chronic obstructive pulmonary disease, unspecified
CPT/HCPCS: 36415; 74176; 80053; 81001; 81003; 85025; 87086; 96372; 99284; J1885

== ENCOUNTER → 2024-12-29 01:21 | Outpatient (BNV) | payer MEDICAID, SELFPAY | PROVIDERS: Visit Provider Radiology Diagnostic Radiology | DX: R10.31 Right lower quadrant pain (principal); Q44.79 Other congenital malformations of liver; N20.0 Calculus of kidney; I70.0 Atherosclerosis of aorta | CPT/HCPCS: 74176 ==

== ENCOUNTER 2025-01-03 13:07 | Outpatient (REF) | payer MEDICAID, SELFPAY ==
--- OUTSIDE RECORDS SUMMARY | 2025-01-03 14:47 | XMS_ITS | Encounter Summary ---
Author Organization [employer] Address [address] [place] [address] Care Team Providers Care Assistant Manager Trainee Name Role Phone Wojciech Li MD Primary Care Provide r Wojciech Li MD Primary Care Provide r Wojciech Li MD Primary Care Provide r Reason for Visit * Reason Comments Med Refill Encounter Details Date Type Department Care Team (Late st Contact Info) Description 07/15/2023 Refill [facility] [address] [place], [place] [phone] Wojciech Li MD [address] [place], [place] [phone] Type 2 diabetes mellitus without complication, unspecified whether joint terminal attack controller insulin use ([facility]) Social History Tobacco Use Types [...] Care Team (Late st Contact Info) Description 01/06/2025 9:00 AM EDT Telemedicine [facility] [address] [facility] [place] [address] 01/13/2025 1:00 PM EDT Office Visit [facility] [address] [facility] [place] [address] Wojciech Li MD [address] [place] [address] 03/22/2025 11:00 AM EDT Office Visit [facility] [address] [place] [address] 04/07/2025 2:30 PM EDT Office Visit [facility] [address] [place] [id number] Moreno, Tyra, OD [address] [place] [address] documented as of this encounter Visit Diagnoses Diagnosis Type 2 diabetes mellitus without complication, unspecified whether joint terminal attack controller insulin use ([facility]) documented in this encounter Additional Health Concerns Assessment Noted Time PHQ-9 Depression Total Score: 0 06/10/20 10:47 AM EDT documented as of this encounter Care Teams Assistant Manager Trainee Relationship Specialty Start Date End Date [place] [id number] PCP - General Internal Medicine 06/01/14 03/04/24 Wojciech Li MD [address] [place] [id number] PCP - General Internal Medicine 03/12/24 03/12/24 [place] [address] PCP - General Internal Medicine 04/12/24 documented as of this encounter
--- OUTSIDE RECORDS SUMMARY | 2025-01-03 14:47 | XMS_ITS | Clinical Summary ---
Author Organization [employer] Address [address] [facility] [address] [facility] [address] [place] [address] Care Team Providers Care Work Station Support Specialist Name Role Phone Wojciech Li MD [...] BY MOUTH EVERY MORNING 90 tablet 1 Active ibuprofen 200 MG tabletIndication s:Acute exacerbation of COPD with asthma ([facility]/HCC) Take 2 tablets (400 mg) by mouth every 8 (eight) hours if needed for mild pain or moderate pain. 20 tablet Active albuterol 108 (90 Base) MCG/ACT inhalerIndicatio ns:Acute exacerbation of COPD with asthma ([facility]/HCC),Chroni c low back pain, unspecified back pain laterality, unspecified whether sciatica present,Chronic obstructive pulmonary disease, unspecified COPD type ([facility]) Inhale 2 puffs every 4 (four) hours if needed for wheezing or shortness of breath. 18 g 1 024 2024 Active insulin pen needle (UltiCare Short Pen [place]) 31G X 8 mm miscIndications: Type 2 diabetes mellitus without complication, unspecified whether alf insulin use ([facility]) USE DIRECTED AT BEDTIME 100 each 3 Active glimepiride (Amaryl) 1 MG tabletIndication s:Type 2 diabetes mellitus without complication, unspecified whether moth exterminator insulin use ([facility]) Take 1 tablet (1 mg) [...] 20 Units under the skin Once daily. 05/23/2 022 Active traZODone (Desyrel) 100 MG tablet Take 100 mg by mouth if needed at bedtime for sleep. 024 Active tiotropium (Spiriva HandiHaler) 18 MCG inhalation [...] complication, unspecified whether moth exterminator insulin use ([facility]) INJECT ONE PEN (=1.5MG) SUBCUTANEOUSLY [...] 2 diabetes mellitus without complication, unspecified whether alf insulin use ([facility]) TEST BLOOD SUGAR ONCE DAILY 100 each 11 025 Active glucose blood (FREESTYLE LITE) test stripIndications :Type 2 diabetes mellitus without complication, unspecified whether moth exterminator insulin use ([facility]) TEST BLOOD SUGAR ONCE DAILY [...] TIMES DAILY 100 each 11 025 Active rOPINIRole (Requip) 1 MG tabletIndication s:Restless leg syndrome TAKE 1 TABLET BY MOUTH AT BEDTIME 30 tablet 3 025 Active propranolol (Inderal) 40 MG tabletIndication s:Essential hypertension TAKE 1 TABLET BY MOUTH TWICE DAILY IN THE MORNING AND IN THE EVENING 180 tablet 1 025 Active polyethylene glycol, PEG, 3350 (MiraLax) 17 GM/SCOOP powder Mix 17 gm in water and take daily as needed for constipation. 510 g 1 025 Active Alcohol Swabs (Alcohol Prep) 70 % pads USE FOUR TIMES DAILY 100 each 11 023 2024 Discontinued montelukast (Singulair) 10 MG tabletIndication s:Seasonal allergies Take 1 tablet (10 mg) by mouth at bedtime. 90 tablet 1 024 2024 Discontinued rOPINIRole (Requip) 1 MG tabletIndication s:Restless leg syndrome TAKE 1 TABLET BY MOUTH AT BEDTIME 30 tablet 3 024 2024 Discontinued famotidine (Pepcid) 20 MG tablet TAKE 1 TABLET BY MOUTH TWICE A DAY 180 tablet 024 2024 Discontinued cholecalciferol (Vitamin D-3) 50 MCG (1999 UT) capsuleIndicatio ns:Low vitamin D level Take 1 capsule (50 mcg) by mouth Once per day. 30 capsule 3 024 2024 Discontinued propranolol (Inderal) 40 MG tabletIndication s:Essential hypertension TAKE 1 TABLET BY MOUTH TWICE DAILY IN THE MORNING AND IN THE EVENING 180 tablet 024 2024 Discontinued(R eorder (will not trigger notification to Pharmacy)) sulfamethoxazole -trimethoprim (Bactrim DS) 800-160 MG tabletIndication s:Acute cystitis with hematuria Take 1 tablet by mouth 2 times daily for 3 days. 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 Her psychiatrist is Dr Goyal ([phone]). She had a previous admission this year at [facility] for a psychiatric admission due to suicidal [...] f/u Pt remains under the care of [facility] in [facility]. Her psychiatrist is Dr Goyal ([phone]). She had a previous admission this year at [facility] for a psychiatric admission due to suicidal [...] PM EST): Recent exacerbation, seen at our [facility], just finished a Prednisone taper and Z- [...] labs -encouraged home BP monitoring -advised contact [facility] if BP persistently elevated Assessment & [...] last done on: by Dr. Tyra Bruce Pedigree Researcher 07/31/2018 Microalbumin checked on: 07/15/2023was 49.Pt is [...] last done on: by Dr. Tyra Bruce Pedigree Researcher 07/31/2018 Microalbumin checked on: 07/15/2023was 49.Pt is [...] low back pain 10/27/1959 Assessment & Plan (12/26/2024 8:09 PM EST): -Follow up with Neurosurgery as scheduled -Good engagement and participation with Group Medical Visit model, today was first visit. -Encouraged multifactorial approach to pain control including pharm and non- pharm modalities -UTOX and Pill count as expected Assessment & Plan (11/16/2024 11:20 AM EST): [...] Will refer back Pt had left for [place] and then came back EMG showed: IMPRESSION: [...] Will refer back Pt had left for [place] and then came back EMG showed: IMPRESSION: [...] given EMG findings [facility] Continue Oxycodone and Acetaminophen Assessment & Plan [...] Encounters Date Type Department Care Team Description 01/03/2025 10:30 AM EDT Office Visit [facility] MEDICINE [address] [facility] [place] [address] Maylin Dan NP Acute right flank pain (Primary Dx); Drug-induced constipation; Vaginal discharge; Type 2 diabetes mellitus without complication, with long-term current use of insulin ([facility]) 01/03/2025 Refill [facility] MEDICINE [address] [facility] [place] [address] Wojciech Li MD Chronic midline low back pain without sciatica 01/03/2025 Travel 12/31/2024 Telephone [facility] MEDICINE [address] [facility] [place] [address] Wojciech Li MD Nurse Triage 12/28/2024 Orders Only [facility] MEDICINE [address] [facility] [place] [address] Wojciech Li MD Acute cystitis with hematuria (Primary Dx) 12/28/2024 Telephone [facility] MEDICINE [address] [place] [address] Ivette Barahona, RN Results 12/27/2024 Refill [facility] MEDICINE [address] [facility] [place] [address] Moiz Gibbs MD Essential hypertension 12/25/2024 Refill [facility] MEDICINE [address] [facility] [place] [address] Wojciech Li MD Restless leg syndrome; Essential hypertension 12/21/2024 11:00 AM EST Office Visit [facility] MEDICINE [address] [facility] [place] [address] Catalina Alex FNP Chronic midline low back pain without sciatica (Primary Dx); Long-term current use of opiate analgesic 12/21/2024 Telephone [facility] MEDICINE [address] [place] [address] Kaylee Hogan RN Walk In Triage 12/21/2024 Travel 12/19/2024 Orders Only GENERIC EXTERNAL DATA DEPARTMENT Provider, Generic External Data 12/10/2024 Refill [facility] WALK-IN CENTER [address] [place] [address] Miriam Lai MD Acute exacerbation of COPD with asthma ([facility]); Chronic low back pain, unspecified back pain laterality, unspecified whether sciatica present; Chronic obstructive pulmonary disease, unspecified COPD type ([facility]) 12/09/2024 Telephone [facility] MEDICINE [address] [place] [address] Wojciech Li MD Durable Medical Equipment 12/07/2024 Refill [facility] MEDICINE [address] [place] [address] Wojciech Li MD Other chronic pain; Chronic midline low back pain without sciatica 12/06/2024 Refill [facility] [address] [place] [address] Yusra Ledezma RN Chronic midline low back pain without sciatica; Other chronic pain 12/06/2024 Telephone [facility] MEDICINE [address] [place] [address] Ivette Barahona, DYE BOARDING MACHINE OPERATOR Follow-up 12/06/2024 Telephone [facility] MEDICINE [address] [place] [address] Wojciech Li MD Med Refill 12/06/2024 Refill [facility] MEDICINE [address] [place] [address] Wojciech Li MD Low vitamin D level 12/05/2024 Orders Only GENERIC EXTERNAL DATA DEPARTMENT Provider, Generic External Data 12/03/2024 Refill [facility] MEDICINE [address] [place] [address] Wojciech Li MD Other chronic pain; Chronic midline low back pain without sciatica 12/02/2024 Refill [facility] MEDICINE [address] [place] [address] Wojciech Li MD Type 2 diabetes mellitus without complication, unspecified whether alf insulin use (CMS/HCC) 12/01/2024 Refill [facility] MEDICINE [address], [place] [address] Wojciech Li MD Other chronic pain 12/01/2024 Refill [facility] MEDICINE [address], [place] [address] Wojciech Li MD Chronic midline low back pain without sciatica 12/01/2024 Refill [facility] MEDICINE [address], [place] [address] Dayanara [place], Seasonal allergies 11/23/2024 Refill [facility] MEDICINE [address], [place] [address] Wojciech Li MD Type 2 diabetes mellitus without complication, unspecified whether alf insulin use (CMS/HCC) 11/17/2024 Telephone [facility] MEDICINE [address] [place] [address] Wojciech Li MD 11/16/2024 10:30 AM EST Office Visit [facility] MEDICINE [address], [place] [address] Wojciech Li MD Type 2 diabetes mellitus without complication, with long-term current use of insulin (CMS/HCC) (Primary Dx); Type 2 diabetes mellitus without complication, unspecified whether alf insulin use (CMS/HCC); Intractable left heel pain; Essential hypertension; Chronic midline low back pain without sciatica; Bipolar affective disorder, currently depressed, moderate (CMS/HCC); Physical exam, annual; Obesity (BMI 30-39.9); Dietary counseling; Exercise counseling 11/16/2024 Travel 11/12/2024 Telephone [facility] MEDICINE [address], [place] [address] Wojciech Li MD Referral 11/09/2024 Telephone [facility] MEDICINE [address], [place] [address] Kaylee Hogan RN Results 11/09/2024 Orders Only [facility] MEDICINE [address] [place] [address] Wojciech Li MD Chronic right-sided low back pain without sciatica (Primary Dx) 11/04/2024 1:00 PM EST Clinical Support [facility] MED [facility] PED[facility] [address] [place] [address] Yusra Ledezma RN Chronic midline low back pain without sciatica 11/04/2024 9:00 AM EST Telemedicine [facility] MEDICINE [address] [place] [address] Jackson Anne PharmD Type 2 diabetes mellitus without complication, unspecified whether moth exterminator insulin use (CMS/HCC) (Primary Dx); Essential hypertension; Mixed hyperlipidemia; Bipolar affective disorder, currently depressed, moderate (CMS/HCC); Chronic obstructive pulmonary disease, unspecified COPD type (CMS/HCC); Moderate persistent asthma without complication 11/04/2024 Refill [facility] MEDICINE [address] [place] [address] Wojciech Li MD Other chronic pain 11/04/2024 Refill [facility]ED[facility] [address] [place] [address] Yusra Ledezma RN Chronic midline low back pain without sciatica 11/04/2024 Patient Outreach [facility] MEDICINE [address] [place] [address] Wojciech Li MD Pre-visit Planning (SDOH screening was completed on 09/14/2024) 11/04/2024 Travel 11/03/2024 Telephone [facility] MEDICINE [address] [place] [address] Wojciech Li MD Chart Prep 10/26/2024 Telephone [facility] MEDICINE [address] [place] [address] Wojciech Li MD 10/05/2024 11:00 AM EST Office Visit [facility] MEDICINE [address] [place] [address] Wojciech Li MD Chronic midline low back pain without sciatica (Primary Dx); Pityriasis alba; Intractable left heel pain 10/05/2024 Telephone [facility] [address] [place] [address] Amor ToryBETSY baugh Appointment Request 10/05/2024 Travel from Last 3 Months Immunizations Name [...] Sign Reading Time Taken Comments Blood Pressure 131/79 01/03/2025 10:21 AM EDT Pulse 105 01/03/2025 10:21 AM EDT Temperature 35.9 ??C (96.7 ??F) 01/03/2025 1 0:21 AM EDT Respiratory Rate 16 01/03/2025 10:2 1 AM EDT Oxygen Saturation 98% 01/03/2025 10: 21 AM EDT Inhaled Oxygen Concentration - - Weight 84.7 kg (186 lb 12.8 oz) 025 10:21 AM EDT Height 162.6 cm (5' 4 ) 01/03/2025 10:2 1 AM EDT Body Mass Index 32.06 01/03/2025 10:21 AM EDT Plan of Treatment Upcoming Encounters Date Type Department Care Team (Late st Contact Info) Description 01/06/2025 9:00 AM EDT Telemedicine [facility] MEDICINE [address] [place] [phone] 01/13/2025 1:00 PM EDT Office Visit [facility] MEDICINE [address] [place] [address] Wojciech Li MD [address] [place] [address] 03/22/2025 11:00 AM EDT Office Visit [facility] MEDICINE [address] [place] [address] 04/07/2025 2:30 PM EDT Office Visit [facility] OPTOMETRY [address] [place] [address] Tyra Mayer, OD [address] [place] [address] Health Maintenance Due Date Last Done Comments [...] 03/16/2025 024, 09/14/2024, 03/24/2024, Additional history exists Alcohol/Substance Use Screening 09/14/2025 09/14/2024 Depression Screening 09/14/2025 09/14/2024, 09/14/20 24 SDOH Screening 09/14/2025 09/14/2024 Diabetes: Urine Protein Screening 09/16/2025 09/16/2024, 07/15/2023, 01/16/2021 Lipid Panel 09/16/2025 09/16/2024, 06/27, 01/16/2021 Mammogram 11/18/2025 11/18/2024, 10/28, 08/05/2018 DTaP/Tdap/Td Vaccines (2 - Td or Tdap) 11/30/2025 11/30/2015 Tobacco Screening 01/03/2026 01/03/2025 Colonoscopy 07/11/2026 07/11/2021 Colorectal Cancer Screening 07/11/2026 [...] Name Priority Date/Time Associated Diagnosis Comments POCT URINALYSIS DIPSTICK- Unsuccessful Attempt Routine 01/03/2025 12:01 PM EDT Acute right flank pain POCT GLUCOSE Routine 01/03/2025 12:00 PM EDT Type 2 diabetes mellitus without complication, with long-term current use of insulin ([facility]) POCT BARRINGTON-14 URINE DRUG SCREEN Routine 12/21/2024 1:30 PM EST Long-term current use of opiate analgesic POCT GLUCOSE Routine 12/21/2024 12:36 PM EST Dizziness URINALYSIS, COMPLETE, WITH REFLEX TO CULTURE Routine 12/19/2024 6:54 AM EST GLUCOSE, WHOLE BLOOD Routine 12/19/2024 6:[address] HIP WO CONTRAST RIGHT Routine 12/19/2024 2:32 AM EST BASIC METABOLIC PANEL Routine 12/19/2024 2:28 AM EST HEPATIC FUNCTION PANEL Routine 12/19/2024 2:28 AM EST HIGH SENSITIVITY TROPONIN I Routine 12/19/2024 2:28 AM EST CBC WITH AUTO DIFFERENTIAL Routine 12/19/2024 2:28 AM EST CULTURE, URINE, ROUTINE Routine 12/19/2024 12:00 AM EST BD DEXA AXIAL Routine 12/17/2024 11:00 AM EST Chronic midline low back pain without sciatica CTA HEAD NECK W AND WO CONTRAST [...] 2 diabetes mellitus without complication, unspecified whether alf insulin use (CMS/HCC) MR LUMBAR SPINE WO CONTRAST Routine 11/07/2024 8:54 AM EST Chronic midline low back pain without sciatica POCT BARRINGTON-14 URINE DRUG SCREEN Routine 11/04/2024 1:22 PM EST Chronic midline low back pain without sciatica HEMOGLOBIN A1C Routine 09/16/2024 6:49 AM EST Type 2 diabetes mellitus with other specified complication, unspecified whether moth exterminator insulin use (CMS/HCC) LIPID PANEL, STANDARD Routine 09/16/2024 6:49 AM EST Mixed hyperlipidemia ALBUMIN, RANDOM URINE W/CREATININE Routine 09/16/2024 6:48 AM EST Type 2 diabetes mellitus without complication, with long-term current use of insulin (CMS/[facility]) HM COLONOSCOPY Routine 07/11/2021 10:40 AM EDT PROPHYLAXIS - ADULT Routine 07/14/2019 1 2:00 AM EDT INTRAORAL - COMPLETE SERIES OF RADIOGRAPHIC IMAGES Routine 04/27/2019 12:00 AM EDT PERIODIC ORAL EVALUATION - ESTABLISHED PATIENT Routine 04/27/2019 12:00 AM EDT from Last 3 Months or Most Recently Relevant to Health Maintenance Results * (ABNORMAL) POCT Urinalysis (01/03/2025 12:01 PM EDT) - Unsuccessful Attempt Spec Grav, UA Comment:1.030 Urobilinogen, UA Comment:0.2 Leukocytes, UA (POSITIVE) Comment:trace Appearance, UA Comment:dark yellow and slig htly cloudy QC Media Lot # Comment:[id number] Lot# Expiration Date Comment:[id number] Urine 01/03/2025 12:0 1 PM EDT [facility] POINT OF CARE TEST ENTER/EDIT ORDERABLES Final Result * (ABNORMAL) POCT Glucose (01/03/2025 12:00 PM EDT) Only the most recent of3 resultswithin the time period is included. Glucose Blood, POC 240(A) 60 - 200 mg/dL QC Media Lot # [id number] Lot# Expiration Date [id number] Blood Capillary blood specimen / Unknown 01/03/2025 12:00 PM EDT [facility] POINT OF CARE TEST ENTER/EDIT ORDERABLES Final Result * POCT BARRINGTON-14 Urine Drug Screen (12/21/2024 1:30 PM EST) Only the most recent of2 resultswithin the time period is included. Oxycodone Screen, Urine Positive Urine Urine specimen obtained by clean catch procedure / Unknown 12/21/2024 1:30 PM EST Narrative Yusra Ledezma RN - 12/21/2024 1:30 PM EST .UTOX cup Lot#[id number] Exp. 06/15/26 Internal Pass Control Catalina Alex [facility] POINT OF CARE TEST ENTER/EDIT ORDERABLES Final Result * (ABNORMAL) Urinalysis, Complete, with Reflex to Culture (12/19/2024 6:54 AM EST) Only the most recent of2 resultswithin the time period is included. Color Urine Yellow [facility] Appearance Urine Turbid [facility] PH 5.5 5.0 - 9.0 [facility] Glucose Urine UA Negative Negative mg/dL [facility] Urine Blood Small (1+)(A) Negative [facility] Specific [place] - Urine 1.015 1.005 - 1.025 [facility] Urine Protein Negative Neg-Trace mg/dL [facility] Urine Ketones Negative Negative mg/dL [facility] Nitrite Urine Negative Negative [facility] Leukocyte Esterase Urine Large (3+)(A) Negative [facility] RBC Urine 3-5(A) 0 - 2 /HPF [facility] Urine WBC >50(A) 0 - 5 /HPF [facility] Urine Squamous Epithelial Cell 6-10 0 - 2 /HPF [facility] Urine Bacteria 3+ None Seen [facility] Hyaline Casts, Urine 0-2 0 - 2 /LPF [facility] 12/19/2024 6:54 AM EST 12/19/2024 6:58 AM EST Narrative [facility] - 12/19/2024 7:22 AM EST [id number], Clean Catch Generic External Data Provider LAB URINE ORDERAB LES Final Result Performing Organization Address [facility] Co de Phone Number [facility] [address] [place] [phone] * Glucose, Whole Blood (12/19/2024 6:10 AM EST) Only the most recent of2 resultswithin the time period is included. Glucose, Whole Blood 106 60 - 115 mg/dL [facility] Comment:METER #: [id number] 12/19/2024 6:10 AM EST 12/19/2024 6:15 AM EST Generic External Data Provider LAB BLOOD ORDERAB LES Final Result Performing Organization Address [facility] de Phone Number [facility] [address] [place] [phone] * CT Hip w/o Contrast Right (12/19/2024 2:32 AM EST) Anatomical Region Laterality Modality Lower Extremities, Hip Right Computed Tomography 12/19/2024 2:32 AM EST Narrative 12/19/2024 2:34 AM EST ? [facility] ?[address] ?[place] [address] ? CT Scan Report ? Signed ? Patient: Yefri,Brandie ?MR#: [id number] ?? [id number] ? : 1970 ?Acct:[id number] ? Age/Sex: 54 / F ?ADM Date: 12/19/24 ? Loc: HO.ED ? Attending Dr: ? Ordering Physician: Dalia Joshi MD ?? Date of Service: 12/19/24 ?? Procedure(s): CT hip RT wo IV con ?? Accession Number(s): [id number] ? cc: [facility]; Dlaia Joshi MD ? Report Number: ?? [id number]: Total DLP = ??264.00 mGy-cm ? CLINICAL HISTORY: pain, unable to bear weight ? CT pelvis without contrast ? Comparison: CR - XR HIP RT W PEL1V - 12/19/24 00:51 EST ? Findings: ? Pelvic contents unremarkable. ?? Normal appendix. ?? The bones are intact. ?? Atherosclerotic vascular calcifications are noted. ? IMPRESSION: ?? No acute findings. ? This document has been electronically signed by: Alejandro Durham MD, ?? PHD on 12/19/2024 02:32:39 ? Dictated By: ?Alejandro Durham MD ? Signed By: ?<Electronically signed by Alejandro Durham MD in OV> ? 12/19/24 0233 ? DD/ 0232 ? TD/TT: 12/19/24 0232 ? Dye Lab Technician: ? Procedure Note Helen, Image - 12/19/[address] [place] [address] [address] Scan Report Signed Patient: Toya Asif#: [id number] : 1970Acct:[id number] Age/Sex: 54 / FADM Date: 12/19/24 Loc: HO.ED Attending Dr: Ordering Physician: Dalia Joshi MD Date of Service: 12/19/24 Procedure(s): CT hip RT wo IV con Accession Number(s): [id number] cc: [facility]; Dalia Joshi MD Report Number: [id number]: Total DLP = 264.00 mGy-cm CLINICAL HISTORY: pain, unable to bear weight CT pelvis without contrast Comparison: CR - XR HIP RT W PEL1V - 12/19/24 00:51 EST Findings: Pelvic contents unremarkable. Normal appendix. The bones are intact. Atherosclerotic vascular calcifications are noted. IMPRESSION: No acute findings. This document has been electronically signed by: Alejandro Durham MD, PHD on 12/19/2024 02:32:39 Dictated By: Alejandro Durham MD Signed By: <Electronically signed by Alejandro Durham MD in OV> 12/19/24232 DD/ 1 TD/TT: 12/19/24231 Dye Lab Technician: [facility] External Provider IMG CT PROCEDURES Edited Result - Final * High Sensitivity Troponin I (12/19/2024 2:28 AM EST) Pathologist [facility] TROPONIN I HIGH SENSITIVITY <2.7 <3.5 - 17.0 ng/L [facility] LABS Comment:The [employer] high sens itivity Troponin-I results should beused in conjunction with other diagnostic information suchas ECG, clinical observations and information, and patientsymptoms to aid in the diagnosis of [place]. 12/19/2024 2:28 AM EST 12/19/2024 2:31 AM EST Generic External Data Provider LAB BLOOD ORDERAB LES Final Result [facility] [address] [place] [phone] * (ABNORMAL) CBC auto differential (12/19/2024 2:28 AM EST) Only the most recent of2 resultswithin the time period is included. Pathologist [facility] White Blood Count 7.9 4.8 - 10.8 X10*3/uL [facility] Red Blood Count 3.91(L) 4.20 - 5.50 X10*6/uL [facility] Hemoglobin 12.5 12.0 - 16.0 g/dl [facility] Hematocrit 34.0(L) 37.0 - 47.0 % [facility] Mean Corpuscular Volume 87.0 80.0 - 98.0 fL [facility] Mean Corpuscular Hemoglobin 32.0 27.0 - 33.0 pg [facility] Mean Corpuscular HGB Conc 36.8(H) 31.0 - 35.0 g/dl [facility] Red Cell Distribution Width 12.5 11.0 - 16.0 % [facility] Platelet Count 275 160 - 400 X10*3/uL [facility] Mean Platelet Volume 10.2 9.4 - 12.3 fL [facility] Neutrophils Percent Auto 56.1 45 - 73 % [facility] Imm Gran Pct Auto 0.4 0.0 - 0.4 % [facility] Lymphocytes Percent Auto 34.5 20 - 40 % [facility] Monocytes Percent Auto 6.5 2 - 11 % [facility] Eosinophils Percent Auto 2.0 0 - 4 % [facility] Basophils Percent Auto 0.5 0 - 2 % [facility] NRBC Pct Auto 0.0 0.0 - 0.2 /100WBC [facility] Neutrophils Absolute Auto 4.4 2.0 - 8.3 x10*3/uL [facility] Imm Gran Abs Auto 0.03 0.00 - 0.03 X10*3/uL [facility] Lymphocytes Absolute Auto 2.7 1.2 - 4.9 X10*3/uL [facility] Monocytes Absolute Auto 0.5 0.1 - 1.2 X10*3/uL [facility] Eosinophils Absolute Auto 0.2 0.0 - 0.4 X10*3/uL [facility] Basophils Absolute Auto 0.0 0.0 - 0.2 X10*3/uL [facility] NRBC Abs Auto 0.000 0.0 - 0.012 X10*3/uL [facility] 12/19/2024 2:28 AM EST 12/19/2024 2:31 AM EST us Generic External Data Provider LAB BLOOD ORDERAB LES Final Result Performing Organization Address City/State/[facility] Co de Phone Number [facility] [address] [place] [phone] * (ABNORMAL) Hepatic Function Panel (12/19/2024 2:28 AM EST) Bilirubin, Total 0.3 0.0 - 1.0 mg/dL [facility] Bilirubin, Direct <0.1 0.0 - 0.5 mg/dL [facility] Aspartate Amino Transferase 20 5 - 31 U/L [facility] Alanine Aminotransferase 25 0 - 31 U/L [facility] Total Protein 7.4 6.5 - 8.0 g/dL [facility] Albumin Level 4.0 3.5 - 5.0 g/dL [facility] Alkaline Phosphatase 122(H) 39 - 117 U/L [facility] 12/19/2024 2:28 AM EST 12/19/2024 2:31 AM EST Generic External Data Provider LAB BLOOD ORDERAB LES Final Result Performing Organization Address [facility] Co de Phone Number [facility] [address] [place] [phone] * (ABNORMAL) Basic Metabolic Panel (12/19/2024 2:28 AM EST) Pathologist [facility] Sodium 140 135 - 145 mmol/L [facility] Potassium 3.6 3.3 - 5.1 mmol/L [facility] Chloride 108 96 - 108 mmol/L [facility] Carbon Dioxide 23 22 - 29 mmol/L [facility] Anion Gap 13 12 - 20 [facility] Urea Nitrogen (BUN) 14 9 - 16 mg/dL [facility] Creatinine, Serum 0.69 0.5 - 1.4 mg/dL [facility] Creatinine Clr Calc Pharmacy 97.4 [facility] Comment:Provided height and weight: 162.56 cm,83.461 kg.eGFR (calculated from the MDRD study equation) and eCrCl(calculated from the Cockcroft-Gault equation) are based ondifferent parameters and may not yield comparable results.If eCrCl result is absurd, please check patient'sheight/weight. Estimated Glomerular Filt Rate >60 [facility] Comment:Chronic Kidney Disea se: Estimated GFR < 60 mL/min/1.91n0Vcoirq Kidney Disease: Estimated GFR < 15 mL/min/1.73m2 Glucose 123(H) 60 - 115 mg/dL [facility] Calcium 9.3 8.4 - 10.2 mg/dL [facility] 12/19/2024 2:28 AM EST 12/19/2024 2:31 AM EST Generic External Data Provider LAB BLOOD ORDERAB LES Final Result Performing Organization Address [facility] Co de Phone Number [facility] [address] [place] [phone] * Culture, Urine, Routine (12/19/2024 12:00 AM EST) Only the most recent of2 resultswithin the time period is included. Urine Urine specimen obtained by clean catch procedure / Unknown 12/19/2024 12/19/2024 Comment:UACC Narrative [facility] - 12/20/2024 8:56 AM EST Urine Culture Report Result Urine Culture 10,000 to 50,000 cfu/ml Urine Culture Mixed bacterial katya characteristic of Urine Culture urogenital contamination. Specimen Source: Urine clean catch Generic External Data Provider LAB MICROBIOLOGY - GENERAL ORDERABLES Final Result Performing Organization Address City/[facility]/ZIP Co de Phone Number [facility] [address] [place] [address] [phone] * BD DEXA Axial (12/17/2024 11:00 AM EST) Anatomical Region Laterality Modality Body Radiographic Tammie ging 12/17/2024 11:0 0 AM EST Narrative 12/20/2024 8:54 AM EST ? [facility] ? [address] ?[place] [address] ? Mammography Report ? Signed ? Patient: Yefri,Brandie ?MR#: [id number] ?? 0772 ? : 1970 ?Acct:[id number] ? Age/Sex: 54 / F ?ADM Date: 12/17/24 ? Loc: HO.MAMMO ? Attending Dr: Wojciech Kinsey MD ? Ordering Physician: Wojciech Kinsey MD ?Resu ?? lts: ? Date of Service: 12/17/24 ?Follow Up: ? Procedure(s): XR DEXA axial skeleton ?? Accession Number(s): [id number] ? cc: Wojciech Kinsey MD ? EXAMINATION: ??DXA BONE DENSITY AXIAL ? HISTORY: ??Estrogen deficiency ? TECHNIQUE: Wizer Dual energy absorptiometry (DEXA) ?? of the lumbar spine, total left hip, and femoral neck was performed. ? COMPARISON: ??There are no prior studies for comparison. ? FINDINGS: ? The bone mineral density of the lumbar spine is 1.005 with a T-score of ?? -1.4, and a Z-score of -1.2. ? The bone mineral density of the left total hip is 0.909 with a T-score ?? of -0.8, and a Z-score of -0.6. ? The bone mineral density of the left femoral neck is 0.900 with a ?? T-score of -1.0, and a Z-score of -0.4. ? FRACTURE RISK: ?? The FRAX index suggests a risk of major osteoporotic fracture of 5.2%, ?? and of hip fracture 0.5%. ? MM/XR DEXA axial skeleton ?? IMPRESSION: ?? Based on bone mineral density, and according to World Health ?? Organization (WHO) criteria, the diagnosis is consistent with ?? osteopenia. ? All bone density values are in grams per centimeter squared (g/cm2). ?? Statistically, 68% of repeat scans fall within 1 SD (+/- 0.010 g/cm2 ?? for AP spine L1-L4) and 1 SD (+/- 0.012 g/cm2 for femur total) ?? FRAX is a trademark of the [employer]'s ?? [place] for Metabolic Bone Disease, a World Health Organization (WHO) ?? Collaborating Center. ? Electronically signed by: ??Pascual Ellis MD ??12/20/2024 08:51 AM EST ?? RP ? Dictated By: ?Pascual Ellis MD ? Signed By: ?<Electronically signed by Pascual Ellis MD in OV> ?12/20/24 0851 ? DD/ 1100 ? TD/TT: 12/17/24 1130 ? Dye Lab Technician: ? Procedure Note Helen, Image - 12/20/2024 [facility] [address] [place] [address] Dr. Raza, [place] [address] Mammography Report Signed Patient: Toya Asif#: [id number] : 1970Acct:[id number] Age/Sex: 54 / FADM Date: 12/17/24 Loc: XU Attending Dr: Wojciech Kinsey MD Ordering Physician: Wojciech Kinseyu lts: Date of Service: 12/17/24Follow Up: Procedure(s): XR DEXA axial skeleton Accession Number(s): [id number] cc: Wojciech Kinsey MD EXAMINATION: DXA BONE DENSITY AXIAL HISTORY: Estrogen deficiency TECHNIQUE: Wizer Dual energy absorptiometry (DEXA) of the lumbar spine, total left hip, and femoral neck was performed. COMPARISON: There are no prior studies for comparison. FINDINGS: The bone mineral density of the lumbar spine is 1.005 with a T-score of -1.4, and a Z-score of -1.2. The bone mineral density of the left total hip is 0.909 with a T-score of -0.8, and a Z-score of -0.6. The bone mineral density of the left femoral neck is 0.900 with a T-score of -1.0, and a Z-score of -0.4. FRACTURE RISK: The FRAX index suggests a risk of major osteoporotic fracture of 5.2%, and of hip fracture 0.5%. MM/XR DEXA axial skeleton IMPRESSION: Based on bone mineral density, and according to World Health Organization (WHO) criteria, the diagnosis is consistent with osteopenia. All bone density values are in grams per centimeter squared (g/cm2). Statistically, 68% of repeat scans fall within 1 SD (+/- 0.010 g/cm2 for AP spine L1-L4) and 1 SD (+/- 0.012 g/cm2 for femur total) FRAX is a trademark of the [employer] [place] for Metabolic Bone Disease, a World Health Organization (WHO) Collaborating Center. Electronically signed by: Pascual Ellis MD 12/20/2024 08:51 AM EST Dictated By: Pascual Ellis MD Signed By: <Electronically signed by Pascual Ellis MD in OV> 12/20/24 0851 DD/ 1100 TD/TT: 12/17/24 1130 Dye Lab Technician: us Wojciech Carver MD IMG DXA PROCEDURES Fi nal Result * CTA Head Neck w/ and w/o Contrast (12/05/2024 4:56 AM EST) Anatomical Region Laterality Modality Head, Neck Computed Tomogra phy 12/05/2024 4:56 AM EST Narrative 12/05/2024 4:58 AM EST ? [facility] ?[address] ?[place] [address] ? CT Scan Report ? Signed ? Patient: Yefri,Brandie ?MR#: [id number] ?? 0772 ? : 1970 ?Acct:[id number] ? Age/Sex: 54 / F ?ADM Date: 12/05/24 ? Loc: HO.ED ? Attending Dr: ? Ordering Physician: Marta Barkley ?? Date of Service: 12/05/24 ?? Procedure(s): CT angio head neck ?? Accession Number(s): [id number] ? cc: Marta Barkley; [facility] ? Report Number: ?? [id number]: Total DLP = 2086.00 mGy-cm ? CLINICAL [...] ? DD/ 5 ? TD/TT: 12/05/24455 ? Dye Lab Technician: ? Procedure Note Hector Cervantes - 12/05/[address] [place] [address] [address] Scan Report Signed Patient: Toya Asif#: [id number] 0772 : 1970Acct:[id number] Age/Sex: 54 / FADM Date: 12/05/24 Loc: HO.ED Attending Dr: Ordering Physician: Marta Barkley Date of Service: 12/05/24 Procedure(s): CT angio head neck Accession Number(s): [id number] cc: Marta Barkley; [facility] Report Number: [id number]: Total DLP = 2086.00 mGy-cm CLINICAL HISTORY: [...] This document has been electronically signed by: Cnoor Martinez MD on 12/05/2024 04:56:36 Dictated By: Conor Martinez MD Signed By: <Electronically signed by Conor Martinez MD in OV> 12/05/24 0457 DD/ 0456 TD/TT: 12/05/24 0456 Dye Lab Technician: [facility] External Provider IMG CT PROCEDURES Edited Result - Final * XR Chest 1 View (12/05/2024 2:45 AM EST) Anatomical Region Laterality Modality Chest Radiographic Tammie ging 12/05/2024 2:45 AM EST Narrative 12/05/2024 2:47 AM EST ? [facility] ?[address] ?[place] [address] ?XRay Report ? Signed ? Patient: Yefri,Brandie ?MR#: [id number] ?? 0772 ? : 1970 ?Acct:[id number] ? Age/Sex: 54 / F ?ADM Date: 02/09/25 ? Loc: HO.ED ? Attending Dr: ? Ordering Physician: Romero Gastelum MD ?? Date of Service: 12/05/24 ?? Procedure(s): XR chest 1V ?? Accession Number(s): [id number] ? cc: [facility]; Romero Gastelum MD ? CLINICAL HISTORY: [...] Conor Martinez MD in OV> ? 12/05/24 0246 ? DD/ 4 ? TD/TT: 12/05/24244 ? Dye Lab Technician: ? Procedure Note Donsyed, Hector - 12/05/[address] [address] XRay Report Signed Patient: Toya Asif#: [id number] 0772 : 1970Acct:[id number] Age/Sex: 54 / FADM Date: 12/05/24 Loc: HO.ED Attending Dr: Ordering Physician: Romero Gastelum MD Date of Service: 12/05/24 Procedure(s): XR chest 1V Accession Number(s): [id number] cc: [facility]; Romero Gastelum MD CLINICAL HISTORY: cough [...] in OV> 12/05/24245 DD/ 4 TD/TT: 12/05/24244 Dye Lab Technician: [facility] External Provider IMG XR PROCEDURES Edited Result - Final * SARS-CoV-2 RNA, Influenza A/B, and RSV RNA, Ql NAAT (12/05/2024 2:08 AM EST) Influenza A PCR NEGATIVE Negative [facility] Influenza B PCR NEGATIVE Negative [facility] Resp Syncy Virus RNA Qual PCR NEGATIVE Negative [facility] SARS COV2 PCR NEGATIVE Negative [facility] Comment:All test results mus t [...] use by authorized laboratories.Testing performed on the Medrio GeneXpert utilizingreal-time RT-PCR.All SARS CoV2 and positive influenza A/B results arereported to [facility]. 12/05/2024 2:08 AM EST 12/05/2024 2:13 AM EST us Generic External Data Provider LAB MICROBIOLOGY - GENERAL ORDERABLES Final Result [facility] [address] [place] [phone] * Prothrombin Time-INR (12/05/2024 2:08 AM EST) Prothrombin Time 11.7 10.9 - 12.4 SEC [facility] INTERNATIONAL NORM RATIO 1.0 0.9 - 1.1 [facility] Comment:INTERNATIONAL NORMAL IZED RATIO (INR) [...] Provider LAB BLOOD ORDERAB LES Final Result [facility] [address] [place] [phone] * (ABNORMAL) Comprehensive Metabolic Panel (12/05/2024 2:08 AM EST) Sodium 141 135 - 145 mmol/L [facility] Potassium 3.7 3.3 - 5.1 mmol/L [facility] Chloride 106 96 - 108 mmol/L [facility] Carbon Dioxide 23 22 - 29 mmol/L [facility] Anion Gap 16 12 - 20 [facility] Urea Nitrogen (BUN) 18(H) 9 - 16 mg/dL [facility] Creatinine, Serum 0.77 0.5 - 1.4 mg/dL [facility] Creatinine Clr Calc Pharmacy 87.9 [facility] Comment:Provided height and weight: 162.56 cm,84.7 kg.eGFR (calculated from the MDRD study equation) and eCrCl(calculated from the Cockcroft-Gault equation) are based ondifferent parameters and may not yield comparable results.If eCrCl result is absurd, please check patient'sheight/weight. Estimated Glomerular Filt Rate >60 [facility] Comment:Chronic Kidney Disea se: Estimated GFR < 60 mL/min/1.49h0Tecwvn Kidney Disease: Estimated GFR < 15 mL/min/1.73m2 Glucose 130(H) 60 - 115 mg/dL [facility] Calcium 9.9 8.4 - 10.2 mg/dL [facility] Bilirubin, Total 0.3 0.0 - 1.0 mg/dL [facility] Aspartate Amino Transferase 31 5 - 31 U/L [facility] Alanine Aminotransferase 41(H) 0 - 31 U/L [facility] Total Protein 8.4(H) 6.5 - 8.0 g/dL [facility] Albumin Level 4.4 3.5 - 5.0 g/dL [facility] Alkaline Phosphatase 134(H) 39 - 117 U/L [facility] 12/05/2024 2:08 AM EST 12/05/2024 2:13 AM EST us Generic External Data Provider LAB BLOOD ORDERAB LES Final Result [facility] [address] [facility] [place] [phone] [phone] * BI Mammogram Screening Tomosynthesis Bilateral (11/18/2024 11:45 AM EST) Anatomical Region Laterality Modality Breast Bilateral Mammography 11/18/2024 11:4 5 AM EST Narrative 11/29/2024 9:48 AM EST ? [facility] ? [address] ?[place] [address] ? Mammography Report ? Signed ? Patient: Yefri,Brandie ?MR#: [id number] ?? 0772 ? : 1970 ?Acct:[id number] ? Age/Sex: 54 / F ?ADM Date: // ? Loc: HO.MAMMO ? Attending Dr: Wojciech Kinsey MD ? Ordering Physician: Wojciech Kinsey MD ?Resu ?? lts: 1Negative ? Date of Service: //25 ?Follow Up: 1 Year From Orig ?? inal Mammogram ? Procedure(s): MM tomosynthesis screening BI ?? Accession Number(s): [id number] ? cc: Wojciech Kinsey MD ? EXAMINATION: [...] DD/ 1145 ? TD/TT: 11/18/24 1210 ? Dye Lab Technician: ? Procedure Note Hector Cervantes - 11/29/2024 [facility] [address] [place] [address] Dr. Raza, [place] [address] Mammography Report Signed Patient: Viktoriya AsifNir#: [id number] : 1970Acct:[id number] Age/Sex: 54 / FADM Date: 11/18/24 Loc: HO.MAMMO Attending Dr: Wjociech Kinsey MD Ordering Physician: Wojciech Kinsey MDResu lts: 1Negative Date of Service: 11/18/24Follow Up: 1 Year From Orig ina Mammogram Procedure(s): MM tomosynthesis screening BI Accession Number(s): [id number] cc: Wojciech Kinsey MD EXAMINATION: MM SCREENING [...] 11/29/24 0945 DD/ 1145 TD/TT: 11/18/24 1210 Dye Lab Technician: us Wojciech Carver MD IMG BI PROCEDURES Fin al Result * MR Lumbar Spine w/o Contrast (11/07/2024 8:54 AM EST) Anatomical Region Laterality Modality Spine, L-spine Magnetic Resonan ce 11/07/2024 8:54 AM EST Narrative 11/09/2024 9:44 AM EST ? [facility] ?[address] ?[place] [address] ? Magnetic Resonance Report ? Signed ? Patient: Yefri,Brandie ?MR#: [id number] ?? 0772 ? : 1970 ?Acct:[id number] ? Age/Sex: 54 / F ?ADM Date: 11/07/24 ? Loc: HO.MRI ? Attending Dr: Wojciech Kinsey MD ? Ordering Physician: Wojciech Kinsey MD ?? Date of Service: 11/07/24 ?? Procedure(s): MR lumbar spine wo con ?? Accession Number(s): [id number] ? cc: Wojciech Kinsey MD ? EXAMINATION: [...] DD/ 0854 ? TD/TT: 11/07/24 0907 ? Dye Lab Technician: ? Procedure Note Hector Cervantes - 11/09/[address] [address] Magnetic Resonance Report Signed Patient: Toya Asif#: [id number] : 1970Acct:[id number] Age/Sex: 54 / FADM Date: 11/07/24 Loc: HO.MRI Attending Dr: Wojciech Kinsey MD Ordering Physician: Wojciech Kinsey MD Date of Service: 11/07/24 Procedure(s): MR lumbar spine wo con Accession Number(s): [id number] cc: Wojciech Kinsey MD EXAMINATION: MR LUMBAR [...] MDin OV> 11/09/24 0941 DD/ TD/TT: 11/07/24906 Dye Lab Technician: us Wojciech Carver MD IMG MRI PROCEDURES Fi nal Result * (ABNORMAL) Hemoglobin A1c (09/16/2024 6:49 AM EST) Hemoglobin A1c 6.7(H) <6.0 % [facility] Comment:Hemoglobin A1C Refer ence Range Adults: 4.8 - 6.0 % Non diabetic: < 6.0 % Goal: < 7.0 %Additional Action Suggested: > 8.0 %Note: Hemoglobin A1c results are invalid for patients with abnormal amounts of HbF. Blood transfusions may impact the HbA1c concentration in the patient sample. Estimated Average Glucose 146 mg/dL [facility] Comment:eAG = Estimated ave rage glucose which is %A1C expressed asaverage glucose, using the formula of the C7Q-NnjciapOcibsol Glucose study (ADAG), Diabetes Care, Vol.31,#8,Aug. 2007 Blood Venous blood specimen / Unknown 09/16/2024 6:49 AM EST 09/16/2024 6:49 AM EST us Dayanara Olmstead DO LAB BLOOD ORDERABLES Final R esult [facility] [address] [place] [phone] * (ABNORMAL) Lipid Panel, Standard (09/16/2024 6:49 AM EST) Triglycerides 395(H) <150 mg/dL [facility] Comment:Desirable Triglyceri de: less than 150 mg/dLBorderline High Triglyceride 150-199 mg/dLHigh Triglyceride: 200-499 mg/dLVery High Triglyceride: greater than or equal to 5OO mg/dL Cholesterol 184 <200 mg/dL [facility] Comment:Desirable Cholestero l: less than 200 mg/dLBorderline High Cholesterol: 200-239 mg/dLHigh Cholesterol: greater than 239 mg/dL LDL Cholesterol Calculated 69 <100 mg/dL [facility] Comment:Desirable LDL: less than 100 mg/dLNear Optimal/Above Optimal LDL: 110- 129 mg/dLBorderline High LDL: 130-159 mg/dLHigh LDL: 160-189 mg/dLVery High LDL: greater than or equal to 190 mg/dL HDL Cholesterol 36(L) >40 mg/dL [facility] Comment:Desirable HDL: great er than 40 mg/dL Note: This HDL assay may give artificially low results in patients with liver disease. Blood Venous blood specimen / Unknown 09/16/2024 6:49 AM EST 09/16/2024 6:49 AM EST Wojciech Carver MD LAB BLOOD ORDERABLES Final Result Performing Organization Address City/State/[facility] Co de Phone Number [facility] [address] [place] [address] [phone] * (ABNORMAL) Albumin, Random Urine W/Creatinine (09/16/2024 6:48 AM EST) Creatinine, Urine 199.57 mg/dL [facility] Microalbumin Urine 76.0 mg/L [facility] Microalbum Creatinine Ratio Ur 38.0(H) <30 ug/mg cr [facility] Comment:Albumin/Creatinine R atio Reference Ranges: Normal: < 30 ug/mg creatinine Microalbuminuria: 30 - 300 ug/mg creatinineClinical Albuminuria: > 300 ug/mg creatinine Urine (Urine, Random) 09/16/2024 6:48 AM EST 09/16/2024 7:29 AM EST Wojciech Carver MD LAB URINE ORDERABLES Final Result [facility] [address] [place] [phone] * Hm Colonoscopy (07/11/2021 10:40 AM EDT) us Historical Provider HEALTH MAINTENANCE Final Result from Last 3 Months or Most Recently Relevant to Health Maintenance Insurance [place] [id number] STAND ADULT Care Teams Work Station Support Specialist Relationship Specialty Start Date End Date Wojciech Li MD [address] [place] [address] PCP - General Internal Medicine 04/12/24
--- OUTSIDE RECORDS SUMMARY | 2025-01-03 14:48 | XMS_ITS | Encounter Summary ---
Author Organization [employer] Address [address] [place] [address] Care Team Providers Care Restaurant Recruiter Name Role Phone Wojciech Li MD Primary Care Provide r Reason for Visit * Reason Onset Date Comments New Patient 04/12/2024 Encounter Details Date Type Department Care Team ([facility] st Contact Info) Description 04/12/2024 Telephone [facility]IC[facility] [address] [place] [phone] Wojciech Li MD [address] [place], [place] [phone] New Patient Social History Tobacco Use Types [...] caller requesting NEW PATIENT visit. Insurance name: [email or web address] Demographic information updated documented in this encounter Plan of Treatment Upcoming Encounters Date Type Department Care Team (Late st Contact Info) Description 01/06/2025 9:00 AM EDT Telemedicine [facility] MEDICINE [address] [place] [address] 01/13/2025 1:00 PM EDT Office Visit [facility] [address] [place] [address] Wojciech Li MD [address] [place] [address] 03/22/2025 11:00 AM EDT Office Visit [facility] MEDICINE [address] [place] [address] 04/07/2025 2:30 PM EDT Office Visit [facility] OPTOMETRY [address] [place] [phone] Tyra Mayer, DIEUDONNE [address] [place] [address] documented as of this encounter Visit Diagnoses Not on filedocumented in this encounter Additional Health Concerns Assessment Noted Time PHQ-9 Depression Total Score: 0 06/10/20 10:47 AM EDT documented as of this encounter Care Teams Restaurant Recruiter Relationship Specialty Start Date End Date Wojciech Li MD [address] [place] [address] PCP - General Internal Medicine 04/12/24 documented as of this encounter
--- OUTSIDE RECORDS SUMMARY | 2025-01-03 14:48 | XMS_ITS | Encounter Summary ---
Author Organization [employer] Address [address] [place] [address] Care Team Providers Care Co Founder And Director Name Role Phone Wojciech Li MD Primary Care Provide r Encounter Details Date Type Department Care Team (Late st Contact Info) Description 12/28/2024 Orders Only [facility] MEDICINE [address] [place], [place] [phone] Wojciech Li MD [address] [place] [address] Acute cystitis with hematuria (Primary Dx) Social History Tobacco Use Types [...] with others, in a hotel, in a half-way, living outside on the street, on a [...] Info) Description 01/06/2025 9:00 AM EDT Telemedicine [facility] MEDICINE [address] [place] [place] [address] 01/13/2025 1:00 PM EDT Office Visit [facility] MEDICINE [address] [place] [place] [address] Wojciech Li MD 230 [place] [address] 03/22/2025 11:00 AM EDT Office Visit [facility] MEDICINE [address] [place] [address] 04/07/2025 2:30 PM EDT Office Visit [facility] OPTOMETRY [address] [place] [address] Tyra Mayer, DIEUDONNE [address] [place] [address] documented as of this encounter Visit Diagnoses Diagnosis Acute cystitis with hematuria- Primary documented in this encounter Additional Health Concerns Assessment Noted Time PHQ-9 Depression Total Score: 9 09/14/20 24 1:06 PM EST documented as of this encounter Care Teams Co Founder And Director Relationship Specialty Start Date End Date Wojciech Li MD [address] [place] [address] PCP - General Internal Medicine 04/12/24 documented as of this encounter
--- OUTSIDE RECORDS SUMMARY | 2025-01-03 14:48 | XMS_ITS | Encounter Summary ---
Author Organization [employer] Address [address] [facility] [address] 7[address] [place] [address] Care Team Providers Care Drafter Civil (Cad) Name Role Phone Wojciech Li MD Primary Care Provide r Wojciech Li MD Primary Care Provide r Wojciech Li MD Primary Care Provide r Encounter Details Date Type Department Care Team (Late st Contact Info) Description 01/06/2023 Orders Only [facility] CHC MED & PEDS [address] [place] [address] Dayanara Jiménez LPN Social History Tobacco Use [...] Info) Description 01/06/2025 9:00 AM EDT Telemedicine [facility] MEDICINE [address] [place] [address] 01/13/2025 1:00 PM EDT Office Visit [facility] MEDICINE [address] [place] [address] Wojciech Li MD [address] [place] [address] 03/22/2025 11:00 AM EDT Office Visit [facility] MEDICINE [address] [place] [address] 04/07/2025 2:30 PM EDT Office Visit [facility] OPTOMETRY [address] [address] Moreno, Tyra, OD [address] [place] [address] documented as of this encounter Visit Diagnoses Not on filedocumented in this encounter Care Teams Drafter Civil (Cad) Relationship Specialty Start Date End Date Wojciech Li MD [address] [place] [address] PCP - General Internal Medicine 06/01/14 03/04/24 [place] [address] PCP - General Internal Medicine 03/12/24 03/12/24 Wojciech Li MD [address] [place] [address] PCP - General Internal Medicine 04/12/24 documented as of this encounter
--- OUTSIDE RECORDS SUMMARY | 2025-01-03 14:48 | XMS_ITS | Encounter Summary ---
Author Organization [facility] Address [address] [place] [address] Care Team Providers Care Dairy Associate Name Role Phone Dayanara Olmstead DO Primary Care Provider [phone] Reason for Referral * Imaging (Routine) - Pending Review Specialty Diagnoses / Procedures Referred By Contac t Referred To Contact Radiology Diagnoses Plantar fascial fibromatosis Contusion of left foot, subsequent encounter Procedures MR Foot wo Contrast Left Herman Oglesby DPM [address] [address] Phone: tel: fax: [facility] Referral ID Status Reason Start Date Expiration Date V isits Requested Visits Authorized [id number] Pending Review 12/06/2024 12/06/2025 1 1 Reason for Visit * Reason Comments Consult Left heel pain * Consultation (Routine) - Closed Specialty Diagnoses / Procedures Referred By Contact Referred To Contact Podiatry / Orthopaedic Surgery Diagnoses Pain of left heel Dayanara Olmstead DO [address] [place], [place] Phone: tel: fax: Herman Oglesby DPM [address] [address] Phone: tel: fax: Referral ID Status Reason Start Date Expiration Date V isits Requested Visits Authorized [id number] Closed Specialty Services Required 10/05/2024 03/31/2025 6 6 Encounter Details Date Type Department Care Team (Late st Contact Info) Description 12/06/2024 3:15 PM EST Office Visit Orthopedic Surgery - [place] [address] [facility] [address] [place] [phone] Herman Oglesby DPM 175 [facility] 250 [place] [address] Plantar fascial fibromatosis (Primary Dx); Pain of [...] 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 -------- FINAL REPORT -------- Dictated By: Modesto Gaspar Dictated Date: 12/22/2024 17:31 ET Assigned Physician: Modesto Gaspar Reviewed and Electronically Signed By: Modesto Gaspar Signed Date: 12/22/2024 17:42 ET Workstation ID: [id number] Transcribed By: Self Edit Transcribed Date: 12/22/2024 17:31 ET Narrative 12/22/2024 5:42 PM EST HISTORY: ??intense pain foot with history of spinal fusion COMPARISON: None TECHNIQUE: Exam performed on a 1.5 Magdalena high-field MRI scanner. ??Axial T1 with fat suppression and STIR, coronal T1, T2* gradient echo and STIR, sagittal T1 and T2* gradient echo. FINDINGS: There is a dedicated examination of the ankle and hindfoot performed without contrast. ??There is no evidence for an acute fracture or contusion. ??There is no significant degenerative change. ??There is a prominent plantar calcaneal spur with fusiform fascial thickening involving the proximal portion extending to the calcaneal insertion with associated increased T2 signal intensity. ??There is trace edema within the adjacent fat pad as well as trace edema within the involved calcaneal spur. ??There are no soft tissue nodules along the plantar fascia to suggest fibromatosis. ??Incidentally noted Achilles chronic enthesopathic changes without acute findings. Procedure Note Modesto Gaspar MD - 12/22/2024 HISTORY: intense pain foot with history of spinal fusion COMPARISON: None TECHNIQUE: Exam performed on a 1.5 Magdalena high-field MRI scanner. Axial T1with fat suppression and STIR, coronal T1, T2* gradient echo and STIR,sagittal T1 and T2* gradient echo. FINDINGS: There is a dedicated examination of the ankle and hindfoot performedwithout contrast. There is no evidence for an acute fracture orcontusion. There is no significant degenerative change. There is aprominent plantar calcaneal spur with fusiform fascial thickeninginvolving the proximal portion extending to the calcaneal insertion withassociated increased T2 signal intensity. There is trace edema within theadjacent fat pad as well as trace edema within the involved calcanealspur. There are no soft tissue nodules along the plantar fascia tosuggest fibromatosis. Incidentally noted Achilles chronic enthesopathicchanges without acute findings. IMPRESSION: Findings compatible with plantar fasciitis. -------- FINAL REPORT -------- Dictated By: Modesto Gaspar Dictated Date: 12/22/2024 17:31 ET Assigned Physician: Modesto Gaspar Reviewed and Electronically Signed By: Modesto Gaspar Signed Date: 12/22/2024 17:42 ET Workstation ID: [id number] Transcribed By: Self Edit Transcribed Date: 12/22/2024 17:31 ET us Herman Oglesby DPM IMG MRI PROCEDURES Final Result documented in this encounter Visit Diagnoses Diagnosis Plantar fascial fibromatosis- Primary Pain of left heel Contusion of left foot, subsequent encounter Plantar fascial fibromatosis Contusion of left foot, subsequent encounter documented in this encounter Orders Outpatient Referral Count Last Ordered Date Fir st Ordered Date AMB REFERRAL TO PODIATRY 1 12/06/2024 documented in this encounter Care Teams Dairy Associate Relationship Specialty Start Date End Date Dayanara Olmstead DO [address] [place] [address] PCP - General 04/02/24 documented as of this encounter
--- OUTSIDE RECORDS SUMMARY | 2025-01-03 14:48 | XMS_ITS | Encounter Summary ---
Author Organization [employer] Address [address] [place] [address] Care Team Providers Care Slasher Machine Operator Name Role Phone Wojciech Li MD Primary Care Provide r Encounter Details Date Type Department Care Team (Latest Contact Info) Description 01/03/2025 Travel Social History Tobacco Use Types Packs/Day [...] Info) Description 01/06/2025 9:00 AM EDT Telemedicine [facility] MEDICINE [address] [place] [address] 01/13/2025 1:00 PM EDT Office Visit [facility] MEDICINE [address] [place] [address] Wojciech Li MD [address] [place] [address] 03/22/2025 11:00 AM EDT Office Visit [facility] MEDICINE [address] [place] [address] 04/07/2025 2:30 PM EDT Office Visit [facility] OPTOMETRY [address] [place] [address] Moreno, Tyra, OD 230 [place] [address] documented as of this encounter Visit Diagnoses Not on filedocumented in this encounter Additional Health Concerns Assessment Noted Time PHQ-9 Depression Total Score: 9 09/14/20 24 1:06 PM EST documented as of this encounter Care Teams Slasher Machine Operator Relationship Specialty Start Date End Date Wojciech Li MD [address] [place] [address] PCP - General Internal Medicine 6/17/24 documented as of this encounter
--- OUTSIDE RECORDS SUMMARY | 2025-01-03 14:48 | XMS_ITS | Encounter Summary ---
Author Organization [employer] Address [address] [facility] 7t [place] [address] Care Team Providers Care Line Director Name Role Phone Wojciech Li MD Primary Care Provide r Wojciech Li MD Primary Care Provide r Wojciech Li MD Primary Care Provide r Reason for Visit * Reason Comments Med Refill Encounter Details Date Type Department Care Team (Late st Contact Info) Description 01/09/2023 Refill [facility] CHC MED & PEDS [address] [place] [address] [facility] 230 [place] [address] Shortness of breath Social History Tobacco Use [...] Info) Description 01/06/2025 9:00 AM EDT Telemedicine [facility] MEDICINE [address] [place] [address] 01/13/2025 1:00 PM EDT Office Visit [facility] MEDICINE [address] [place] [address] Wojciech Li MD [address] [place] [address] 03/22/2025 11:00 AM EDT Office Visit [facility] MEDICINE [address] [place] [address] 04/07/2025 2:30 PM EDT Office Visit [facility] OPTOMETRY [address] [facility] [place] [address] Tyra Mayer, OD [address] [place] [address] documented as of this encounter Visit Diagnoses Diagnosis Shortness of breath documented in this encounter Care Teams Line Director Relationship Specialty Start Date End Date Wojciech Li MD [address] [place] [address] PCP - General Internal Medicine 06/01/14 03/04/24 [place] [address] PCP - General Internal Medicine 03/12/24 03/12/24 Wojciech Li MD [address] [place] [address] PCP - General Internal Medicine 04/12/24 documented as of this encounter
--- OUTSIDE RECORDS SUMMARY | 2025-01-03 14:48 | XMS_ITS | Encounter Summary ---
Author Organization [employer] Address [address] [facility] [address] 7[address] [place] [address] Care Team Providers Care Disposal Man Name Role Phone Wojciech Li MD Primary Care Provide r Encounter Details Date Type Department Care Team (Late st Contact Info) Description 12/19/2024 Orders Only GENERIC EXTERNAL DATA DEPARTMENT [...] Info) Description 01/06/2025 9:00 AM EDT Telemedicine [facility] [address] [place] [address] 01/13/2025 1:00 PM EDT Office Visit [facility] [address] [place] [address] Wojciech Li MD 230 [place] [address] 03/22/2025 11:00 AM EDT Office Visit [facility] [address] [place] [address] 04/07/2025 2:30 PM EDT Office Visit [facility] OPTOMETRY [address] [place] [address] Tyra Mayer, OD [address] [place] [address] documented as of this encounter Procedures Procedure Name Priority Date/Time Associated Diagnosis Comments URINALYSIS, COMPLETE, WITH REFLEX TO CULTURE Routine 12/19/2024 6:54 AM EST GLUCOSE, WHOLE BLOOD Routine 12/19/2024 6:[address] HIP WO CONTRAST RIGHT Routine 12/19/2024 2:32 AM EST HIGH SENSITIVITY TROPONIN I Routine 12/19/2024 2:28 AM EST CBC WITH AUTO DIFFERENTIAL Routine 12/19/2024 2:28 AM EST HEPATIC FUNCTION PANEL Routine 12/19/2024 2:28 AM EST BASIC METABOLIC PANEL Routine 12/19/2024 2:28 AM EST CULTURE, URINE, ROUTINE Routine 12/19/2024 12:00 AM EST documented in this encounter Results * (ABNORMAL) Urinalysis, Complete, with Reflex to Culture (12/19/2024 6:54 AM EST) Color Urine Yellow [facility] Appearance Urine Turbid [facility] PH 5.5 5.0 - 9.0 [facility] Glucose Urine UA Negative Negative mg/dL [facility] Urine Blood Small (1+)(A) Negative [facility] Specific [place] - Urine 1.015 1.005 - 1.025 [facility] Urine Protein Negative Neg-Trace mg/dL [facility] Urine Ketones Negative Negative mg/dL [facility] Nitrite Urine Negative Negative [facility] Leukocyte Esterase Urine Large (3+)(A) Negative [facility] RBC Urine 3-5(A) 0 - 2 /HPF [facility] Urine WBC >50(A) 0 - 5 /HPF [facility] Urine Squamous Epithelial Cell 6-10 0 - 2 /HPF [facility] Urine Bacteria 3+ None Seen [facility] Hyaline Casts, Urine 0-2 0 - 2 /LPF [facility] 12/19/2024 6:54 AM EST 12/19/2024 6:58 AM EST Narrative [facility] - 12/19/2024 7:22 AM EST [id number], Clean Catch us Generic External Data Provider LAB URINE ORDERAB LES Final Result Performing Organization Address [facility] de Phone Number [facility] [address] [place] [address] [phone] * Glucose, Whole Blood (12/19/2024 6:10 AM EST) Glucose, Whole Blood 106 60 - 115 mg/dL [facility] Comment:METER #: [id number] 12/19/2024 6:10 AM EST 12/19/2024 6:15 AM EST us Generic External Data Provider LAB BLOOD ORDERAB LES Final Result Performing Organization Address [facility] de Phone Number [facility] [address] [place] [address] [phone] * CT Hip w/o Contrast Right (12/19/2024 2:32 AM EST) Anatomical Region Laterality Modality Lower Extremities, Hip Right Computed Tomography 12/19/2024 2:32 AM EST Narrative 12/19/2024 2:34 AM EST ? [facility] ?[address] ?[place] [address] ? CT Scan Report ? Signed ? Patient: Yefri,Brandie ?MR#: [id number] ?? [id number] ? : 1970 ?Acct:[id number] ? Age/Sex: 54 / F ?ADM Date: 12/19/24 ? Loc: HO.ED ? Attending Dr: ? Ordering Physician: Dalia Joshi MD ?? Date of Service: 12/19/24 ?? Procedure(s): CT hip RT wo IV con ?? Accession Number(s): [id number] ? cc: [facility]; Dalia Joshi MD ? Report Number: ?? [id number]: Total DLP = ??264.00 mGy-cm ? CLINICAL [...] PHD on 12/19/2024 02:32:39 ? Dictated By: ?Alejnadro Durham MD ? Signed By: ?<Electronically signed by Alejandro Durham MD in OV> ? 12/19/24232 ? DD/ 1 ? TD/TT: 12/19/24 0232 ? Computer Help Desk Specialist: ? Procedure Note Mirandajoseflip, Hector - 12/19/[address] [address] [address] Scan Report Signed Patient: Toya Asif#: [id number] : 1970Acct:[id number] Age/Sex: 54 / FADM Date: 12/19/24 Loc: HO.ED Attending Dr: Ordering Physician: Dalia Joshi MD Date of Service: 12/19/24 Procedure(s): CT hip RT wo IV con Accession Number(s): [id number] cc: [facility]; Dalia Joshi MD Report Number: [id number]: Total DLP = 264.00 mGy-cm CLINICAL HISTORY: [...] in OV> 12/19/24232 DD/ 1 TD/TT: 12/19/24231 Computer Help Desk Specialist: [facility] External Provider IMG CT PROCEDURES Edited Result - Final * (ABNORMAL) Basic Metabolic Panel (12/19/2024 2:28 AM EST) Sodium 140 135 - 145 mmol/L [facility] Potassium 3.6 3.3 - 5.1 mmol/L [facility] Chloride 108 96 - 108 mmol/L [facility] Carbon Dioxide 23 22 - 29 mmol/L [facility] Anion Gap 13 12 - 20 [facility] Urea Nitrogen (BUN) 14 9 - 16 mg/dL [facility] Creatinine, Serum 0.69 0.5 - 1.4 mg/dL [facility] Creatinine Clr Calc Pharmacy 97.4 [facility] Comment:Provided height and weight: 162.56 cm,83.461 kg.eGFR (calculated from the MDRD study equation) and eCrCl(calculated from the Cockcroft-Gault equation) are based ondifferent parameters and may not yield comparable results.If eCrCl result is absurd, please check patient'sheight/weight. Estimated Glomerular Filt Rate >60 [facility] Comment:Chronic Kidney Disea se: Estimated GFR < 60 mL/min/[id number] Kidney Disease: Estimated GFR < 15 mL/min/1.73m2 Glucose 123(H) 60 - 115 mg/dL [facility] Calcium 9.3 8.4 - 10.2 mg/dL [facility] 12/19/2024 2:28 AM EST 12/19/2024 2:31 AM EST us Generic External Data Provider LAB BLOOD ORDERAB LES Final Result [facility] [address] [place] [phone] * (ABNORMAL) Hepatic Function Panel (12/19/2024 2:28 AM EST) Bilirubin, Total 0.3 0.0 - 1.0 mg/dL [facility] Bilirubin, Direct <0.1 0.0 - 0.5 mg/dL [facility] Aspartate Amino Transferase 20 5 - 31 U/L [facility] Alanine Aminotransferase 25 0 - 31 U/L [facility] Total Protein 7.4 6.5 - 8.0 g/dL [facility] Albumin Level 4.0 3.5 - 5.0 g/dL [facility] Alkaline Phosphatase 122(H) 39 - 117 U/L [facility] 12/19/2024 2:28 AM EST 12/19/2024 2:31 AM EST Generic External Data Provider LAB BLOOD ORDERAB LES Final Result Performing Organization Address [facility] Phone Number [facility] [address] [place] [phone] * High Sensitivity Troponin I (12/19/2024 2:28 AM EST) [facility] TROPONIN I HIGH SENSITIVITY <2.7 <3.5 - 17.0 ng/L [facility] Comment:The Booth high sens itivity Troponin-I results should beused in conjunction with other diagnostic information suchas ECG, clinical observations and information, and patientsymptoms to aid in the diagnosis of IA. 12/19/2024 2:28 AM EST 12/19/2024 2:31 AM EST Generic External Data Provider LAB BLOOD ORDERAB LES Final Result Performing Organization Address [facility] Number [facility] [address] [place] [phone] * (ABNORMAL) CBC auto differential (12/19/2024 2:28 AM EST) [facility] White Blood Count 7.9 4.8 - 10.8 X10*3/uL [facility] Red Blood Count 3.91(L) 4.20 - 5.50 X10*6/uL [facility] Hemoglobin 12.5 12.0 - 16.0 g/dl [facility] Hematocrit 34.0(L) 37.0 - 47.0 % [facility] Mean Corpuscular Volume 87.0 80.0 - 98.0 fL [facility] Mean Corpuscular Hemoglobin 32.0 27.0 - 33.0 pg [facility] Mean Corpuscular HGB Conc 36.8(H) 31.0 - 35.0 g/dl [facility] Red Cell Distribution Width 12.5 11.0 - 16.0 % [facility] Platelet Count 275 160 - 400 X10*3/uL [facility] Mean Platelet Volume 10.2 9.4 - 12.3 fL [facility] Neutrophils Percent Auto 56.1 45 - 73 % [facility] Imm Gran Pct Auto 0.4 0.0 - 0.4 % [facility] Lymphocytes Percent Auto 34.5 20 - 40 % [facility] Monocytes Percent Auto 6.5 2 - 11 % [facility] Eosinophils Percent Auto 2.0 0 - 4 % [facility] Basophils Percent Auto 0.5 0 - 2 % [facility] NRBC Pct Auto 0.0 0.0 - 0.2 /100WBC [facility] Neutrophils Absolute Auto 4.4 2.0 - 8.3 x10*3/uL [facility] Imm Gran Abs Auto 0.03 0.00 - 0.03 X10*3/uL [facility] Lymphocytes Absolute Auto 2.7 1.2 - 4.9 X10*3/uL [facility] Monocytes Absolute Auto 0.5 0.1 - 1.2 X10*3/uL [facility] Eosinophils Absolute Auto 0.2 0.0 - 0.4 X10*3/uL [facility] Basophils Absolute Auto 0.0 0.0 - 0.2 X10*3/uL [facility] NRBC Abs Auto 0.000 0.0 - 0.012 X10*3/uL [facility] 12/19/2024 2:28 AM EST 12/19/2024 2:31 AM EST us Generic External Data Provider LAB BLOOD ORDERAB LES Final Result [facility] [address] [place] [address] [phone] * Culture, Urine, Routine (12/19/2024 12:00 AM EST) Urine Urine specimen obtained by clean catch procedure / Unknown 12/19/2024 12/19/2024 Comment:[facility] Narrative [facility] - 12/20/2024 8:56 AM EST Urine Culture Report Result Urine Culture 10,000 to 50,000 cfu/ml Urine Culture Mixed bacterial katya characteristic of Urine Culture urogenital contamination. Specimen Source: Urine clean catch us Generic External Data Provider LAB MICROBIOLOGY - GENERAL ORDERABLES Final Result [facility] [address] [place] [address] [phone] documented in this encounter Visit Diagnoses Not on filedocumented in this encounter Additional Health Concerns Assessment Noted Time PHQ-9 Depression Total Score: 9 09/14/20 24 1:06 PM EST documented as of this encounter Care Teams Disposal Man Relationship Specialty Start Date End Date Wojciech Li MD [address] [place] [phone] PCP - General Internal Medicine 04/12/24 documented as of this encounter
--- OUTSIDE RECORDS SUMMARY | 2025-01-03 14:48 | XMS_ITS | Encounter Summary ---
Author Organization [employer] Address [address] 7t [place] [address] Care Team Providers Care Licensed Clinical Social Worker Name Role Phone Wojciech Li MD Primary Care Provide r Reason for Visit * Reason Onset Date Comments Results 12/28/2024 Encounter Details Date Type Department Care Team ([facility] st Contact Info) Description 12/28/2024 Telephone [facility] [address] [place] [address] Ivette Barahona RN [address] [place] [address] Results Social History Tobacco Use Types Packs/Day [...] others, in a hotel, in a senior living, living outside on the street, on a [...] Telephone Encounter - Ivette Barahona RN - 12/28/2024 9:17 AM EST Telephone call placed to pharmacy Caroline who declines having received any Rx for Abx for pt within the last few months. Telephone call placed to pt who denies having been given Abx. Inquired if having any Sx of urine infection. Pt reporting increased urinary frequency, is agreeable to Abx. Informed PCP will send. Confirmed that she wants sent to our pharmacy. Advised to take full course, even if feeling better and drink plenty of water. Let us know if Sx persist after Tx. Pt verbalized understanding and denied having any further questions or concerns at this time. Pt's UA done 12/19/2024 showed evidence of a UTI Please contact patient to find out if she was treated. If not please let me know so I can send an Abx to her Pharmacy documented in this encounter Plan of Treatment Upcoming Encounters Date Type Department Care Team ([facility] st Contact Info) Description 01/06/2025 9:00 AM EDT Telemedicine [facility] [address] [place] [address] 01/13/2025 1:00 PM EDT Office Visit [facility] [address] [place] [address] Wojciech Li MD [address] [place] [address] 03/22/2025 11:00 AM EDT Office Visit [facility] [address] [place] [address] 04/07/2025 2:30 PM EDT Office Visit [facility] [address] [place] [address] Tyra Mayer, OD [address] [place] [address] documented as of this encounter Visit Diagnoses Not on filedocumented in this encounter Additional Health Concerns Assessment Noted Time PHQ-9 Depression Total Score: 9 09/14/20 24 1:06 PM EST documented as of this encounter Care Teams Licensed Clinical Social Worker Relationship Specialty Start Date End Date Wojciech Li MD [address] [place] [address] PCP - General Internal Medicine 04/12/24 documented as of this encounter
--- OUTSIDE RECORDS SUMMARY | 2025-01-03 14:48 | XMS_ITS | Encounter Summary ---
Author Organization [employer] Address [address] [facility] 7t [place] [address] Care Team Providers Care Parking Lot Spotter Name Role Phone Wojciech Li MD Primary Care Provide r Wojciech Li MD Primary Care Provide r Wojciech Li MD Primary Care Provide r Reason for Visit * Reason Comments Med Refill Encounter Details Date Type Department Care Team (Late st Contact Info) Description 07/24/2023 Refill [facility] 230 [place] [address] Yoko Eng MD 230 [place] [address] Lumbago with sciatica, left side Social History [...] Info) Description 01/06/2025 9:00 AM EDT Telemedicine [facility] [address] [facility] [place] [address] 01/13/2025 1:00 PM EDT Office Visit [facility] [address] [facility] [place] [address] Wojciech Li MD [address] [facility] [place] [address] 03/22/2025 11:00 AM EDT Office Visit [facility] [address] [facility] [place] [address] 04/07/2025 2:30 PM EDT Office Visit [facility] OPT[facility] [address] [facility] [place] [address] Moreno, Tyra, OD [address] [facility] [place] [address] documented as of this encounter Visit Diagnoses Diagnosis Lumbago with sciatica, left side documented in this encounter Additional Health Concerns Assessment Noted Time PHQ-9 Depression Total Score: 0 06/10/20 23 10:47 AM EDT documented as of this encounter Care Teams Parking Lot Spotter Relationship Specialty Start Date End Date [place] [address] PCP - General Internal Medicine 06/01/14 03/04/24 Wojciech Li MD [facility] [place] [address] PCP - General Internal Medicine 03/12/24 03/12/24 [place] [address] PCP - General Internal Medicine 04/12/24 documented as of this encounter
--- OUTSIDE RECORDS SUMMARY | 2025-01-03 14:48 | XMS_ITS | Clinical Summary ---
Author Organization [address] [facility] Address [address] [place] [address] Phone Care Team Providers Care Clinic Receptionist Name Role Phone Dayanara Olmstead DO Primary Care Provider [phone]- [phone] Allergies No known active allergies Medications albuterol [...] Encounters Date Type Department Care Team Description 12/22/2024 11:52 AM EST - 12/22/2024 11:59 PM EST Hospital Encounter [facility] MRI [address] [place] [phone] Plantar fascial fibromatosis; Contusion of left foot, subsequent encounter Discharge Disposition: Home or Self Care 12/06/2024 3:15 PM EST Office Visit [facility] [place] [address] [facility] [address] [place] [phone] Herman Oglesby, DPM Plantar fascial fibromatosis (Primary [...] PM EDT Office Visit [facility] [place] [address] [phone] Hermna Oglesby, DPM [address] [address] Health Maintenance Due Date Last Done Comments [...] 11/30/2015 Diabetes: Annual GFR (Glomerular Filtration Rate) 12/19/2025 12/19/2024, 12/05/2024, 09/16/2024 Hypertension/CHF/CAD Annual BMP Blood Test 12/19/2025 12/19/2024, 12/05/2024, 09/16/2024 Cholesterol Screening (Lipid Panel) 09/16/2029 [...] Procedure Name Priority Date/Time Associated Diagnosis Comments MR FOOT WO CONTRAST LEFT Routine 12/22/2024 12:49 PM EST Plantar fascial fibromatosis Contusion of left foot, subsequent encounter from Last 3 Months Results * MR Foot wo Contrast Left (12/22/2024 12:49 PM EST) Anatomical Region Laterality Modality Lower Extremities, Foot Left Magnetic Resonance 12/22/2024 5:31 PM EST Impressions 12/22/2024 5:42 PM EST Findings compatible with plantar fasciitis. -------- FINAL REPORT -------- Dictated By: Modesto Gaspar Dictated Date: 12/22/2024 17:31 ET Assigned Physician: Moedsto Gaspar Reviewed and Electronically Signed By: Modesto Gaspar Signed Date: 12/22/2024 17:42 ET Workstation ID: [id number] Transcribed By: Self Edit Transcribed Date: 12/22/2024 [...] Signed Date: 12/22/2024 17:42 ET Workstation ID: [id number] Transcribed By: Self Edit Transcribed Date: 12/22/2024 17:31 ET us Herman Oglesby DPHaris IMG MRI PROCEDURES Final Result from Last 3 Months Insurance MEDICAID - [place] Care Teams Clinic Receptionist Relationship Specialty Start Date End Date Dayanara Olmstead DO [address] [place] [address] PCP - General 04/02/24
--- OUTSIDE RECORDS SUMMARY | 2025-01-03 14:48 | XMS_ITS | Encounter Summary ---
Author Organization [employer] Address [address] [facility] 7t [place] [address] Care Team Providers Care Division Chief Name Role Phone Wojciech Li MD Primary Care Provide r Reason for Referral * Imaging (Urgent) - Pending Review Specialty Diagnoses / Procedures Referred By Contvaldemar t Referred To Contact Radiology Diagnoses Acute right flank pain Procedures CT RENAL FOR STONES Shital Brooks FNP 230 [place] [address] Phone: tel: fax: Referral ID Status Reason Start Date Expiration Date V isits Requested Visits Authorized [id number] Pending Review 01/03/2025 01/03/2026 1 1 Encounter Details Date Type Department Care Team (Late st Contact Info) Description 01/03/2025 10:30 AM EDT Office Visit [facility] 230 [place] [address] Maylin Dan NP 230 [place] [address] Acute right flank pain (Primary Dx); Drug-induced constipation; Vaginal discharge; Type 2 diabetes mellitus without complication, with long-term current use of insulin ([facility]) Social History Tobacco Use Types [...] Mass Index 32.06 01/03/2025 10:21 AM EDT documented in this encounter Progress Notes * Maylin aDn, PROFESSOR OF FINE ART - 01/03/2025 10:30 AM EDT Yefri 54 yrs old in the office with complaint of right flank pain that started approximately 4-6weeks ago and constipation x 4 days. Was recently was treated for UTI 12/30/24 with sulfamethiazoleTMP and completed 01/01. At this visit she rated her pain severe and discomforting. [facility] and was prescribed cyclobenzaprine, ketorolac and cefuroxime which she did not pear picker. Denies fever, chills, vomit. Positive for maintenance porter nausea.Reported she moved her bowels this morning after 4 days , she did not take any medication but increased her fiber intake. Reports she takes oxycodone for pain. During uti symptoms, endorsed gross hematuria when she wiped No new sexual partners, Patient Active Problem List Diagnosis Moderate persistent asthma COPD (chronic obstructive pulmonary disease) ([facility]) Type 2 diabetes mellitus, with long-term current use of insulin ([facility]) Essential hypertension Depressive disorder Mixed hyperlipidemia Chronic low back pain Nonintractable chronic migraine Obesity (BMI 30-39.9) Allergic rhinitis Periodic limb movement disorder Osteoarthritis Anemia Bipolar affective disorder, currently depressed, moderate ([facility]) Chronic tension-type headache Irritable bowel syndrome Restrictive lung disease Shoulder pain Lower abdominal pain Chronic pain of both knees Healthcare maintenance Cyst of ovary Urinary incontinence Pityriasis alba Intractable left heel pain Physical exam, annual Long-term current use of opiate analgesic Vaginal discharge Drug-induced constipation Acute right flank pain No Known Allergies Current Outpatient Medications: Acetaminophen (Mapap) 500 MG capsule, Take 1 capsule (500 mg) by mouth every 8 (eight) hours if needed for mild pain., Disp: 30 capsule, Rfl: 0 albuterol (2.5 MG/3ML) 0.083% nebulizer solution, INHALE 1 AMPULE USING A NEBULIZER EVERY 4 HOURS NEEDED FOR WHEEZING OR SHORTNESS OF BREATH, Disp: 90 mL, Rfl: 1 albuterol 108 (90 Base) MCG/ACT inhaler, Inhale 2 puffs every 4 (four) hours if needed for wheezingor shortness of breath., Disp: 18 g, Rfl: 1 Alcohol Swabs (Alcohol Prep) 70 % pads, USE FOUR TIMES DAILY, Disp: 100 each, Rfl: 11 Arnuity Ellipta 200 MCG/ACT inhaler, INHALE 1 PUFF BY MOUTH EVERY DAY AT THE SAME TIME. RINSE MOUTHAFTER USING. DO NOT SWALLOW., Disp: 30 each, Rfl: 5 Blood Pressure Monitoring (Omron 3 Series BP Monitor) device, Use as directed, Disp: 1 each, Rfl: 0 buPROPion XL (Wellbutrin XL) 150 MG 24 hr tablet, Take 1 tablet by mouth in the morning. With 300 mg tablet, Disp: , Rfl: buPROPion XL (Wellbutrin XL) 300 MG 24 hr tablet, Take 300 mg by mouth in the morning., Disp: , Rfl: cetirizine (ZyrTEC) 10 MG tablet, TAKE 1 TABLET BY MOUTH EVERY DAY, Disp: 90 tablet, Rfl: 1 clotrimazole (Lotrimin) 1 % cream, Apply topically every 12 (twelve) hours., Disp: 60 g, Rfl: 3 D3 Super Strength 50 MCG (2000 UT) capsule, TAKE 1 CAPSULE BY MOUTH EVERY MORNING, Disp: 90 capsule, Rfl: 0 Diclofenac Sodium 1 % gel, Apply 2 g topically if needed in the morning, at noon, in the evening, and at bedtime (pain)., Disp: 150 g, Rfl: 3 DULoxetine (Cymbalta) [address] capsule, Take 60 mg by mouth in the morning., Disp: , Rfl: famotidine (Pepcid) 20 MG tablet, TAKE 1 TABLET BY MOUTH TWICE DAILY IN THE MORNING AND AT BEDTIME,Disp: 180 tablet, Rfl: 0 fenofibrate micronized (Lofibra) 134 MG capsule, TAKE 1 CAPSULE BY MOUTH EVERY EVENING WITH A MEAL,Disp: 90 capsule, Rfl: 3 fluticasone (Flonase Allergy Relief) 50 MCG/ACT nasal spray, SPRAY 2 SPRAYS INTO EACH NOSTRIL EVERYDAY, Disp: 48 g, Rfl: 1 glimepiride (Amaryl) 1 MG tablet, Take 1 tablet (1 mg) by mouth before breakfast., Disp: 30 tablet,Rfl: 6 glucose blood (FREESTYLE LITE) test strip, TEST BLOOD SUGAR ONCE DAILY, Disp: 100 strip, Rfl: 11 ibuprofen 200 MG tablet, Take 2 tablets (400 mg) by mouth every 8 (eight) hours if needed for mild pain or moderate pain., Disp: 20 tablet, Rfl: 0 insulin glargine (Lantus) 100 UNIT/ML injection, Inject 20 Units under the skin Once daily., Disp: , Rfl: insulin pen needle (UltiCare Short Pen [place]) 31G X 8 mm misc, USE DIRECTED AT BEDTIME, Disp: 100 each, Rfl: 3 ketoconazole (NIZOral) 2 % shampoo, Apply topically 2 (two) times a week., Disp: 120 mL, Rfl: 0 lisinopril 20 MG tablet, TAKE 1 TABLET BY MOUTH EVERY MORNING, Disp: 90 tablet, Rfl: 1 mirtazapine (Remeron) 45 MG tablet, Take 45 mg by mouth at bedtime., Disp: , Rfl: montelukast (Singulair) 10 MG tablet, TAKE 1 TABLET BY MOUTH AT BEDTIME, Disp: 90 tablet, Rfl: 1 naloxone (Narcan) 4 mg/0.1 mL nasal spray, Administer 0.1 mL into affected nostril(s)., Disp: , Rfl: oxyCODONE (Roxicodone) 5 MG immediate release tablet, Take 1 tablet (5 mg) by mouth every 8 (eight)hours if needed for severe pain., Disp: 84 tablet, Rfl: 0 polyethylene glycol, PEG, 3350 (MiraLax) 17 GM/SCOOP powder, Mix 17 gm in water and take daily as needed for constipation., Disp: 510 g, Rfl: 1 prazosin (Minipress) 1 MG capsule, Take 1 mg by mouth at bedtime., Disp: , Rfl: propranolol (Inderal) 40 MG tablet, TAKE 1 TABLET BY MOUTH TWICE DAILY IN THE MORNING AND IN THE EVENING, Disp: 180 tablet, Rfl: 1 rOPINIRole (Requip) 1 MG tablet, TAKE 1 TABLET BY MOUTH AT BEDTIME, Disp: 30 tablet, Rfl: 3 tiotropium (Spiriva HandiHaler) 18 MCG inhalation capsule, USE 1 CAPSULE FOR INHALATION ONCE A DAY DO NOT SWALLOW CAPSULE, Disp: 30 capsule, Rfl: 5 traZODone (Desyrel) 100 MG tablet, Take 100 mg by mouth if needed at bedtime for sleep., Disp: , Rfl: TRUEplus Lancets 33G misc, TEST BLOOD SUGAR ONCE DAILY, Disp: 100 each, Rfl: 11 Trulicity 1.5 MG/0.5ML solution auto-injector, INJECT ONE PEN (=1.5MG) SUBCUTANEOUSLY ONCE A WEEK DIRECTED, Disp: 2 mL, Rfl: 2 Review of Systems Constitutional: Negative for appetite change, chills and fever. Respiratory: Negative for cough, chest tightness, shortness of breath and wheezing. Cardiovascular: Negative for chest pain and palpitations. Gastrointestinal: Positive for constipation and nausea. Negative for abdominal distention, abdominal pain and vomiting. Genitourinary: Positive for flank pain, hematuria and vaginal discharge. Negative for dysuria, menstrual problem, pelvic pain, urgency and vaginal pain. Neurological: Negative for dizziness. Psychiatric/Behavioral: Negative for suicidal ideas. Visit Vitals BP 131/79 (BP Location: Left arm, Patient Position: Sitting, BP Cuff Size: Large adult) Pulse 105 Temp 96.7 ??F (35.9 ??C) (Temporal) Resp 16 Ht 5' 4 (1.626 m) Wt 186 lb 12.8 oz (84.7 kg) LMP (LMP Unknown) Comment: Stop having a menstral cycle more familia 10 years ago SpO2 98% BMI 32.06 kg/m?? OB Status Hysterectomy Smoking Status Every Day BSA 1.96 m?? Physical Exam Vitals reviewed. Constitutional: Appearance: Normal appearance. HENT: Head: Atraumatic. Cardiovascular: Rate and Rhythm: Normal rate and regular rhythm. Pulses: Normal pulses. Heart sounds: Normal heart sounds. No murmur heard. Pulmonary: Effort: Pulmonary effort is normal. Breath sounds: Normal breath sounds. No wheezing. Abdominal: Tenderness: There is right CVA tenderness. There is no left CVA tenderness. Neurological: Mental Status: She is alert and oriented to person, place, and time. Psychiatric: Mood and Affect: Mood normal. Behavior: Behavior normal. Problem List Items Addressed This Visit Type 2 diabetes mellitus, with long-term current use of insulin ([facility]) Relevant Orders POCT Glucose (Completed) Vaginal discharge Patient confirms cream color vaginal discharge with malodor. Denies lower abdominal pain, fever, chills or vomit. She has not use any medication Will order BV panel Chlamydia/N.Gonorrhea Relevant Orders Bacterial Vaginosis Panel Chlamydia/N. Gonorrhoeae RNA, TMA, Urogenitial Drug-induced constipation Brandie reports episode of constipation last on lasted 4 days before she could move bowels. she did not take any medication but increased her fiber intake. Reports she takes oxycodone for pain. Will start patient on miralax 17 gm. Continue with high fibers, water and walking Acute right flank pain - Primary Reports right flank pain that started approximately 4-6 weeks ago. Was recently was treated for UTI 12/30/24 with sulfamethiazole TMP and completed 01/01. Seen in the [facility] ER for same pain on 12/29/24 and was prescribed cyclobenzaprine, ketorolac and cefuroxime which she did not pear picker from the pharmacy Describes the pain as sharp severe and discomforting radiating from the right back to the lower front abdomen. Positive right CVA tenderness. No rebound pain. Denies fever, chills, vomit. Positive for maintenance porter nausea. Hx of GERD Will order UA and CT renal ? Renal stones Relevant Orders POCT Urinalysis (Completed) Culture, Urine, Routine CT RENAL FOR STONES [facility] PROFESSOR OF FINE ART Attestation PROFESSOR OF FINE ART Resident Attestation: Patient was seen and evaluated by Shital QUINTEROS , in collaboration with Maylin QUINTEROS who hasreviewed my assessment and plan. I, Maylin QUINTEROS , have reviewed the resident's note and agree with the assessment & plan of care as documented above. Visit Conducted in: Mohawk Translation by: Provided by [facility] staff member Marj , documented in this encounter Plan of Treatment Upcoming Encounters Date Type Department Care Team (Late st Contact Info) Description 01/06/2025 9:00 AM EDT Telemedicine [facility] [address] [place] [address] 01/13/2025 1:00 PM EDT Office Visit [facility] [address] [place] [address] Wojciech Li MD [address] [place], [place] [phone] 03/22/2025 11:00 AM EDT Office Visit [facility] 230 [place], [place] [phone] 04/07/2025 2:30 PM EDT Office Visit [facility] OPTOMETRY [address] [place], [place] [phone] Moreno, Tyra, OD [address] [place], [place] [phone] Scheduled Orders Name Type Priority Associated Diagnoses Orde r Schedule Culture, Urine, Routine Microbiology Routine Acute right flank pain Expected: 01/03/2025 (Approximate), Expires: 01/03/2026 Bacterial Vaginosis Panel Microbiology Routine Vaginal discharge Ordered: 01/03/2025 Chlamydia/N. Gonorrhoeae RNA, TMA, Urogenitial Microbiology Routine Vaginal discharge Ordered: 01/03/2025 CT RENAL FOR STONES Imaging Urgent Acute right flank pain Expected: 01/03/2025, Expires: 01/03/2026 documented as of this encounter Procedures Procedure Name Priority Date/Time Associated Diagnosis Comments POCT URINALYSIS DIPSTICK- Unsuccessful Attempt Routine 01/03/2025 12:01 PM EDT Acute right flank pain POCT GLUCOSE Routine 01/03/2025 12:00 PM EDT Type 2 diabetes mellitus without complication, with long-term current use of insulin ([facility]) documented in this encounter Results * (ABNORMAL) POCT Urinalysis (01/03/2025 12:01 PM EDT) - Unsuccessful Attempt Spec Grav, UA Comment:1.030 Urobilinogen, UA Comment:0.2 Leukocytes, UA (POSITIVE) Comment:trace Appearance, UA Comment:dark yellow and slig htly cloudy QC Media Lot # Comment:[id number] Lot# Expiration Date Comment:[id number] Urine 01/03/2025 12:0 1 PM EDT us Shital Okhipo GENERAL AGENT POINT OF CARE TEST ENTER/EDIT ORDERABLES Final Result * (ABNORMAL) POCT Glucose (01/03/2025 12:00 PM EDT) Glucose Blood, POC 240(A) 60 - 200 mg/dL QC Media Lot # [id number] Lot# Expiration Date 82,625 Blood Capillary blood specimen / Unknown 01/03/2025 12:00 PM EDT [facility] GENERAL AGENT POINT OF CARE TEST ENTER/EDIT ORDERABLES Final Result documented in this encounter Visit Diagnoses Diagnosis Acute right flank pain- Primary Drug-induced constipation Other constipation Vaginal discharge Leukorrhea, not specified as infective Type 2 diabetes mellitus without complication, with long-term current use of insulin ([facility]) documented in this encounter Additional Health Concerns Assessment Noted Time PHQ-9 Depression Total Score: 9 09/14/20 24 1:06 PM EST documented as of this encounter Care Teams Division Chief Relationship Specialty Start Date End Date Wojciech Li MD [address] [place] [address] PCP - General Internal Medicine 04/12/24 documented as of this encounter
--- OUTSIDE RECORDS SUMMARY | 2025-01-03 14:48 | XMS_ITS | Encounter Summary ---
Author Organization [employer] Address [address] [facility] 7t [place] [address] Care Team Providers Care Receiver Stocker Name Role Phone Wojciech Li MD Primary Care Provide r Wojciech Li MD Primary Care Provide r Wojciech Li MD Primary Care Provide r Reason for Visit * Reason Onset Date Comments Medication Question 01/10/2023 Encounter Details Date Type Department Care Team ([facility] st Contact Info) Description 01/10/2023 Telephone [facility] MED[facility]INE [address] [place], [place] [phone] Wojciech Li MD [address] [place], [place] [phone] Medication Question Social History Tobacco Use Types [...] If any questions please contact Adriana at [phone] documented in this encounter Plan of Treatment Upcoming Encounters Date Type Department Care Team (Late st Contact Info) Description 01/06/2025 9:00 AM EDT Telemedicine [facility]INE [address] [place] [address] 01/13/2025 1:00 PM EDT Office Visit [facility]INE [address] [place] [address] Wojciech Li MD [address] [place] [address] 03/22/2025 11:00 AM EDT Office Visit [facility] [address] [place] [address] 04/07/2025 2:30 PM EDT Office Visit [facility] OPTOMETRY [address] [place] [address] Tyra Mayer, OD [address] [place] [address] documented as of this encounter Visit Diagnoses Not on filedocumented in this encounter Care Teams Receiver Stocker Relationship Specialty Start Date End Date Wojciech Li MD [address] [place] [address] PCP - General Internal Medicine 06/01/14 03/04/24 Wojciech Li MD [address] [place] [address] PCP - General Internal Medicine 03/12/24 03/12/24 Wojciech Li MD [address] [place] [address] PCP - General Internal Medicine 04/12/24 documented as of this encounter
--- OUTSIDE RECORDS SUMMARY | 2025-01-03 14:48 | XMS_ITS | Encounter Summary ---
Author Organization [facility] Address [address] [place] [address] Care Team Providers Care Pilot Captain Name Role Phone Dayanara Olmstead DO Primary Care Provider [phone]- [phone] Reason for Referral * Imaging (Routine) - Pending Review Specialty Diagnoses / Procedures Referred By Dory maldonado Referred To Contact Radiology Diagnoses Plantar fascial fibromatosis Contusion of left foot, subsequent encounter Procedures MR Foot wo Contrast Left Herman Oglesby DPM [address] [address] Phone: tel: fax: [facility] Referral ID Status Reason Start Date Expiration Date V isits Requested Visits Authorized [id number] Pending Review 12/06/2024 12/06/2025 1 1 Reason for Visit * Imaging (Routine) - Pending Review Specialty Diagnoses / Procedures Referred By Dory maldonado Referred To Contact Radiology Diagnoses Plantar fascial fibromatosis Contusion of left foot, subsequent encounter Procedures MR Foot wo Contrast Left Herman Oglesby DPM [address] [facility] [address] [place] [address] Phone: tel: fax: [facility] Referral ID Status Reason Start Date Expiration Date V isits Requested Visits Authorized [id number] Pending Review 12/06/2024 12/06/2025 1 1 Encounter Details Date Type Department Care Team (Latest Contact Info) Description 12/22/2024 11:52 AM EST - 12/22/2024 11:59 PM EST Hospital Encounter [facility] MRI [address] [place] [address] Plantar fascial fibromatosis; Contusion of left foot, subsequent encounter Discharge Disposition: Home or Self Care Social History Tobacco Use Types Packs/Day Years Used Date Smoking Tobacco: Never Assessed Comments Unknown Sex and Gender Information Value Date Recorded Sex Assigned at Not on file Legal Sex Female 11:37 PM EST Gender Identity Not on file Sexual Orientation Not on file documented as of this encounter Medications at Time of Discharge albuterol 2.5 mg /3 mL (0.083 %) [...] device inhaler Inhale into the lungs daily. gabapentin (NEURONTIN) 100 mg capsule Take 1 capsule (100 mg total) by mouth 1 (one) time each day. insulin glargine (LANTUS) 100 unit/mL injection Inject 100 Units into the skin daily. naproxen (NAPROSYN) 500 mg tablet Take 1 Tablet by mouth 2 times daily (with meals). omeprazole (PriLOSEC) [address] capsule 20 mg po BID (1/2 hour befor eating) 09/27/2008 polyethylene glycol 3350 (MIRALAX ORAL) 1 capful (17g) - 2 times a day - mixed with 6-8oz water 09/27/2008 propranoloL (INDERAL) 40 mg tablet Take 1 tablet (40 mg total) by mouth 2 (two) times a day. simethicone (MYLICON) 80 mg chewable tablet 1 -2 TABLETS PO AFTER Q MEAL topiramate (Topamax) 25 mg tablet 1 TABLETS TWICE DAILY traZODone (DESYREL) 50 mg tablet Take 1 Tablet by mouth at bedtime. documented as of this encounter Discharge Disposition Disposition Code Departure Means Destination Home or Self Care documented in this encounter Plan of Treatment Upcoming Encounters Date Type Department Care Team (Late st Contact Info) Description 01/12/2025 1:30 PM EDT Office Visit Orthopedic Surgery - [place] [address] [phone] Herman Oglesby, DPM [address] [address] documented as of this encounter Procedures Procedure Name Priority Date/Time Associated Diagnosis Comments MR FOOT WO CONTRAST LEFT Routine 12/22/2024 12:49 PM EST Plantar fascial fibromatosis Contusion of left foot, subsequent encounter documented in this encounter Results * MR Foot wo [...] Signed Date: 12/22/2024 17:42 ET Workstation ID: [id number] Transcribed By: Self Edit Transcribed Date: 12/22/2024 [...] Signed Date: 12/22/2024 17:42 ET Workstation ID: [id number] Transcribed By: Self Edit Transcribed Date: 12/22/2024 17:31 ET Herman Oglesby DPHaris IMG MRI PROCEDURES Final Result documented in this encounter Visit Diagnoses Diagnosis Plantar fascial fibromatosis Contusion of left foot, subsequent encounter documented in this encounter Care Teams Pilot Captain Relationship Specialty Start Date End Date Dayanara Olmstead DO [address] [place] [address] [place] PCP - General 04/02/24 documented as of this encounter
--- OUTSIDE RECORDS SUMMARY | 2025-01-03 14:48 | XMS_ITS | Encounter Summary ---
Author Organization [email or web address] Address 75 [facility] 7t [place] [address] Care Team Providers Care Supervisor Small Appliance Assembly Name Role Phone Wojciech Li MD Primary Care Provide r Reason for Visit * Reason Comments Med Refill Encounter Details Date Type Department Care Team (Late st Contact Info) Description 05/23/2024 Refill [facility] MEDICINE [address] [place], [place] [phone] Dayanara Olmstead, [address] [place], [place] [phone] Chronic low back pain, unspecified back pain [...] Info) Description 01/06/2025 9:00 AM EDT Telemedicine [facility] MEDICINE [address] [place] [address] 01/13/2025 1:00 PM EDT Office Visit [facility] MEDICINE [address] [place] [address] Wojciech Li MD [address] [place] [address] 03/22/2025 11:00 AM EDT Office Visit [facility] MEDICINE [address] [place] [address] 04/07/2025 2:30 PM EDT Office Visit [facility] OPTOMETRY [address] [place], [place] [phone] Tyra Mayer, OD 230 [place] [address] documented as of this encounter Visit Diagnoses Diagnosis Chronic low back pain, unspecified back pain laterality, unspecified whether sciatica present Chronic obstructive pulmonary disease, unspecified COPD type (CMS/HCC) documented in this encounter Additional Health Concerns Assessment Noted Time PHQ-9 Depression Total Score: 0 06/10/20 23 10:47 AM EDT documented as of this encounter Care Teams Supervisor Small Appliance Assembly Relationship Specialty Start Date End Date Wojciech Li MD [address] [place] [address] PCP - General Internal Medicine 04/12/24 documented as of this encounter
--- OUTSIDE RECORDS SUMMARY | 2025-01-03 14:48 | XMS_ITS | Encounter Summary ---
Author Organization [employer] Address 75 [facility] 7t [place] [address] Care Team Providers Care Sports Editor Name Role Phone Wojciech Li MD Primary Care Provide r Reason for Visit * Reason Onset Date Comments Durable Medical Equipment 12/09/2024 Encounter Details Date Type Department Care Team ([facility] st Contact Info) Description 12/09/2024 Telephone [facility] MEDICINE [address] [place] [address] Wojciech Li MD 230 [place] [address] Durable Medical Equipment Social History Tobacco Use [...] with others, in a hotel, in a longterm, living outside on the street, on a [...] * Telephone Encounter - Arti Kelley - 12/22/2024 10:54 AM EST RX for Shower chair and Walker signed and faxed to [facility]arly . Confirmation received and sentto scan. If patient calls to check status on above, please advise them to contact Carly at [phone]. * Telephone Encounter - Maylin Graves - 12/21/2024 12:06 PM EST PT walked in requesting a follow up on DME. PT has fallen due to not having her walker. * Telephone Encounter - Arti Kelley - 12/10/2024 12:06 PM EST Regional Engagement Consultant called pt and informed MH will cover either cane or walker, not both. Pt cancelled request for cane, states needs walker more. Confirmed shower chair w/back. DME RX for Shower chair and Walker generated and placed on providers desk for signature. * Telephone Encounter - Rissa Lilia Higginbotham - 12/09/2024 2:32 PM EST Tc from pt requesting: - Rollator walker 4 wheels (with Fold Up and Removable Back Support and Padded Seat) - Shower seat - Cane documented in this encounter Plan of Treatment Upcoming Encounters Date Type Department Care Team (Late st Contact Info) Description 01/06/2025 9:00 AM EDT Telemedicine [facility] MEDICINE [address] [place] [address] 01/13/2025 1:00 PM EDT Office Visit [facility] MEDICINE [address] [place] [address] Wojciech Li MD 230 [place] [address] 03/22/2025 11:00 AM EDT Office Visit [facility] MEDICINE [address] [place] [address] 04/07/2025 2:30 PM EDT Office Visit [facility] OPTOMETRY [address] [place] [address] Moreno, Tyra, OD 230 [place] [address] documented as of this encounter Visit Diagnoses Not on filedocumented in this encounter Additional Health Concerns Assessment Noted Time PHQ-9 Depression Total Score: 9 09/14/20 24 1:06 PM EST documented as of this encounter Care Teams Sports Editor Relationship Specialty Start Date End Date Wojciech Li MD 230 [place] [address] PCP - General Internal Medicine 04/12/24 documented as of this encounter
--- OUTSIDE RECORDS SUMMARY | 2025-01-03 14:48 | XMS_ITS | Encounter Summary ---
Author Organization [employer] Address [address] [facility] [address] 7t [place] [address] Care Team Providers Care Care Technician Name Role Phone Wojciech Li MD Primary Care Provide r Reason for Visit * Reason Comments Med Refill Encounter Details Date Type Department Care Team (Late st Contact Info) Description 05/18/2024 Refill [facility] MEDICINE 230 [place], [place] [phone] Wojciech Li MD 230 [place], [place] [phone] Type 2 diabetes mellitus without complication, unspecified whether manager terminal insulin use ([facility]); Essential hypertension Social History Tobacco Use Types [...] Info) Description 01/06/2025 9:00 AM EDT Telemedicine [facility] MEDICINE [address] [place] [address] 01/13/2025 1:00 PM EDT Office Visit [facility] MEDICINE [address] [place] [address] Wojciech Li MD 230 [place] [address] 03/22/2025 11:00 AM EDT Office Visit [facility] MEDICINE [address] [place] [address] 04/07/2025 2:30 PM EDT Office Visit [facility] OPTOMETRY [address] [place] [address] Tyra Mayer, OD 230 [place] [address] documented as of this encounter Visit Diagnoses Diagnosis Type 2 diabetes mellitus without complication, unspecified whether usp insulin use ([facility]) Essential hypertension Unspecified essential hypertension documented in this encounter Additional Health Concerns Assessment Noted Time PHQ-9 Depression Total Score: 0 06/10/20 23 10:47 AM EDT documented as of this encounter Care Teams Care Technician Relationship Specialty Start Date End Date Wojciech Li MD [address] [place] [address] PCP - General Internal Medicine 04/12/24 documented as of this encounter
--- OUTSIDE RECORDS SUMMARY | 2025-01-03 14:48 | XMS_ITS | Encounter Summary ---
Author Organization [employer] Address 75 [facility] 7t [place] [address] Care Team Providers Care Profile Saw Operator Name Role Phone Wojciech Li MD Primary Care Provide r Wojciech Li MD Primary Care Provide r Wojciech Li MD Primary Care Provide r Reason for Visit * Reason Onset Date Comments Durable Medical Equipment 01/10/2023 Encounter Details Date Type Department Care Team (Late st Contact Info) Description 01/10/2023 Telephone [facility] MEDICINE 230 [place], [place] [phone] Wojciech Li MD 230 [place], [place] [phone] Durable Medical Equipment Social History Tobacco Use [...] 9:17 AM EDT Tc from Adriana with [facility] requesting a Walker with the seat, for pt regarding pt back injury, surgery back in February of spine. Please contact Adriana [phone] documented in this encounter Plan of Treatment Upcoming Encounters Date Type Department Care Team (Late st Contact Info) Description 01/06/2025 9:00 AM EDT Telemedicine [facility] MEDICINE [address] [place] [address] 01/13/2025 1:00 PM EDT Office Visit [facility] MEDICINE [address] [place] [address] Wojciech Li MD [address] [place] [address] 03/22/2025 11:00 AM EDT Office Visit [facility] MEDICINE [address] [place] [address] 04/07/2025 2:30 PM EDT Office Visit [facility] OPTOMETRY [address] [place] [address] Tyra Mayer, OD 230 [place] [address] documented as of this encounter Visit Diagnoses Not on filedocumented in this encounter Care Teams Profile Saw Operator Relationship Specialty Start Date End Date Wojciech Li MD 230 [place] [address] PCP - General Internal Medicine 06/01/14 03/04/24 Wojciech Li MD [address] [place] [address] PCP - General Internal Medicine 03/12/24 03/12/24 Wojciech Li MD 230 [place] [address] PCP - General Internal Medicine 04/12/24 documented as of this encounter
--- OUTSIDE RECORDS SUMMARY | 2025-01-03 14:48 | XMS_ITS | Encounter Summary ---
Author Organization [employer] Address 75 [facility] 7t [place] [address] Care Team Providers Care Machine Preservative Filler Name Role Phone Wojciech Li MD Primary Care Provide r Reason for Visit * Reason Comments Med Refill Encounter Details Date Type Department Care Team (Late st Contact Info) Description 01/03/2025 Refill [facility] MEDICINE 230 [place], [place] [phone] Wojciech Li MD 230 [place], [place] [phone] Chronic midline low back pain without sciatica [...] Info) Description 01/06/2025 9:00 AM EDT Telemedicine [facility] MEDICINE [address] [place] [address] 01/13/2025 1:00 PM EDT Office Visit [facility] MEDICINE [address] [place] [address] Wojciech Li MD 230 [place] [address] 03/22/2025 11:00 AM EDT Office Visit [facility] MEDICINE [address] [place] [address] 04/07/2025 2:30 PM EDT Office Visit [facility] OPTOMETRY [address] [place] [address] Tyra Mayer, OD 230 [place] [address] documented as of this encounter Visit Diagnoses Diagnosis Chronic midline low back pain without sciatica documented in this encounter Additional Health Concerns Assessment Noted Time PHQ-9 Depression Total Score: 9 09/14/20 24 1:06 PM EST documented as of this encounter Care Teams Machine Preservative Filler Relationship Specialty Start Date End Date Wojciech Li MD 230 [place] [address] PCP - General Internal Medicine 04/12/24 documented as of this encounter
--- OUTSIDE RECORDS SUMMARY | 2025-01-03 14:48 | XMS_ITS | Encounter Summary ---
Author Organization [employer] Address 75 [facility] 7t [place] [address] Care Team Providers Care Mobile Application Developer Name Role Phone Wojciech Li MD Primary Care Provide r Wojciech Li MD Primary Care Provide r Wojciech Li MD Primary Care Provide r Encounter Details Date Type Department Care Team (Late st Contact Info) Description 11/04/2022 Orders Only [facility] MED & PEDS [address] [place] [address] Dayanara Jiménez LPN Social History Tobacco Use [...] AM EDT Telemedicine [facility] MEDICINE [address] [place] [phone] 01/13/2025 1:00 PM EDT Office Visit [facility] MEDICINE [address] [place] [phone] Wojciech Li MD 230 [place], [place] [phone] 03/22/2025 11:00 AM EDT Office Visit [facility] MEDICINE [address] [place] [address] 04/07/2025 2:30 PM EDT Office Visit [facility] OPTOMETRY [address] [place] [address] Moreno, Tyra, OD 230 [place] [address] documented as of this encounter Visit Diagnoses Not on filedocumented in this encounter Care Teams Mobile Application Developer Relationship Specialty Start Date End Date Wojciech Li MD 230 [place] [address] PCP - General Internal Medicine 06/01/14 03/04/24 Wojciech Li MD [address] [place] [address] PCP - General Internal Medicine 03/12/24 03/12/24 Wojciech Li MD [address] [place], [place] [phone] PCP - General Internal Medicine 04/12/24 documented as of this encounter
--- OUTSIDE RECORDS SUMMARY | 2025-01-03 14:48 | XMS_ITS | Encounter Summary ---
Author Organization [employer] Address 75 [facility] 7t [place] [address] Care Team Providers Care Microfilm Mounter Name Role Phone Wojciech Li MD Primary Care Provide r Reason for Visit * Reason Onset Date Comments Nurse Triage 12/31/2024 Encounter Details Date Type Department Care Team ([facility] st Contact Info) Description 12/31/2024 Telephone [facility] MEDICINE [address] [place] [address] Wojciech Li MD [address] [place] [address] Nurse Triage Social History Tobacco Use Types Packs/Day Years [...] encounter Miscellaneous Notes * Telephone Encounter - Luz Coleman RN - 12/31/2024 12:53 PM EST No diplomatic interpreter/translator needed as this senior medical writer speaks [place]. Call returned to Brandie Asif to triage below. Reports having issues with constipation x 3 days. Last BM 3 days ago. Per pt stool was normal. Per pt used to be given rx for Miralax to use PRN. Pt has not used any OTC stool softeners. No use of prune juice. Pt does endorse abdominal pain but states this is a chronic issue. Pt advised of disposition, agrees to sick on site with blue team provider. Reviewed home care advise, ER precautions and reasons to call back. Protocol Used: Constipation (Adult) Protocol-Based Disposition: See in Office or Video Visit within 3 Days Future Appointments Date Time Provider Department Center 01/03/2025 10:30 AM Maylin Dan NP MEDICINE [facility] 01/06/2025 9:00 AM [facility] MANAGER INTENSIVE CARE 1 MEDICINE [facility] 01/13/2025 1:00 PM Wojciech Carver MD MEDICINE [facility] 03/22/2025 11:00 AM [facility] CHRONIC PAIN CLINIC MED[facility] 04/07/2025 2:30 PM Tyra Mayer, OD [facility] Insurance verified as active per Real Time Eligibility in [facility]. Video visit offer not recorded Positive Triage Question: * Patient wants to be seen * All higher-acuity triage questions were negative Care Advice Discussed: * Reassurance and Education - Constipation * General Constipation Instructions * High Fiber Diet * Drink Adequate Liquids * Reasons To Call Back - Constipation lasts more than 1 week after using Care Advice - Abdomen swelling, vomiting or fever occur - You become worse * Telephone Encounter - Roxann Westfall - 12/31/2024 12:39 PM EST Symptom: Constipation Outcome: Schedule an urgent appointment (within 1 hour) or talk to a nurse or provider soon Reason: Constant stomach pain The caller accepted this outcome. Contact pt at [phone] (dominican) documented in this encounter Plan of Treatment Upcoming Encounters Date Type Department Care Team (Late st Contact Info) Description 01/06/2025 9:00 AM EDT Telemedicine [facility] MEDICINE [address] [place] [address] 01/13/2025 1:00 PM EDT Office Visit [facility] MEDICINE [address] [place] [address] Wojciech Li MD 230 [place] [address] 03/22/2025 11:00 AM EDT Office Visit [facility] MEDICINE [address] [place] [address] 04/07/2025 2:30 PM EDT Office Visit [facility] OPTOMETRY [address] [place] [address] Moreno, Tyra, OD 230 [place] [address] documented as of this encounter Visit Diagnoses Not on filedocumented in this encounter Additional Health Concerns Assessment Noted Time PHQ-9 Depression Total Score: 9 09/14/20 24 1:06 PM EST documented as of this encounter Care Teams Microfilm Mounter Relationship Specialty Start Date End Date Wojciech Li MD 230 [place] [address] PCP - General Internal Medicine 04/12/24 documented as of this encounter
--- OUTSIDE RECORDS SUMMARY | 2025-01-03 14:48 | XMS_ITS | Encounter Summary ---
Author Organization [employer] Address 75 [facility] 7t [place] [address] Care Team Providers Care Cracking Unit Operator Name Role Phone Wojciech Li MD Primary Care Provide r Reason for Visit * Reason Comments Med Refill Encounter Details Date Type Department Care Team (Late st Contact Info) Description 12/25/2024 Refill [facility] MEDICINE [address] [place], [place] [phone] Wojciech Li MD [address] [place] [address] Restless leg syndrome; Essential hypertension Social History Tobacco Use Types [...] EDT Telemedicine [facility] MEDICINE [address] [place] [address] 01/13/2025 1:00 PM EDT Office Visit [facility] MEDICINE [address] [place] [address] Wojciech Li MD [address] [place] [address] 03/22/2025 11:00 AM EDT Office Visit [facility] MEDICINE [address] [place] [address] 04/07/2025 2:30 PM EDT Office Visit [facility] OPTOMETRY [address] [place] [address] Tyra Mayer, DIEUDONNE 230 [place] [address] documented as of this encounter Visit Diagnoses Diagnosis Restless leg syndrome Restless legs syndrome (RLS) Essential hypertension Unspecified essential hypertension documented in this encounter Additional Health Concerns Assessment Noted Time PHQ-9 Depression Total Score: 9 09/14/20 24 1:06 PM EST documented as of this encounter Care Teams Cracking Unit Operator Relationship Specialty Start Date End Date Wojciech Li MD [address] [place] [address] PCP - General Internal Medicine 04/12/24 documented as of this encounter
--- OUTSIDE RECORDS SUMMARY | 2025-01-03 14:48 | XMS_ITS | Encounter Summary ---
Author Organization [employer] Address [address] [facility] [address] 7t [place] [address] Care Team Providers Care Public Health Educator Name Role Phone Wojciech Li MD Primary Care Provide r Reason for Visit * Reason Onset Date Comments Walk In Triage 12/21/2024 Encounter Details Date Type Department Care Team ([facility] st Contact Info) Description 12/21/2024 Telephone [facility] [address] [place] [address] Kaylee Hogan RN Walk In Triage Social History Tobacco Use Types Packs/Day [...] with others, in a hotel, in a usp, living outside on the street, on a [...] Telephone Encounter - Kaylee Hogan RN - 12/21/2024 12:27 PM EST Pt was a walk in triage to the Green Team after stating that she was experiencing symptoms of malaise and dizziness. Pt was brought into a pt room by RN and Pati Graves for Syriac translation. Pt was visibly fatigued and had difficulty ambulating when being brought back to the pt room. Pt statesthat she typically uses a walker when ambulating but did not have it today. Pt only pain was located on the right side of the back and there was also a notable wrap/brace on the right hand. Pt was recently in the [facility] on 12/19/2024 for a mechanical fall. CT scan did not show any acute abnormalities but pt still had notable difficulty with ambulation. Pt was discharged home with Tramadol and Cyclobenzaprine. Pt BS was taken by the RN and it came out to be 73. Pt was given a candy and apple juice in an attempt to help bring the BS up. Pt finished both the juice and the candy and was escorted to the Green Team waiting room to wait for scheduled appt with Dr. Eng at 215. Pt decided to leave the [facility] without being seen by Dr. Eng due to the wait. Pt was offered to be brought to the [facility] but also refused. documented in this encounter Plan of Treatment Upcoming Encounters Date Type Department Care Team (Late st Contact Info) Description 01/06/2025 9:00 AM EDT Telemedicine [facility] [address] [place] [address] 01/13/2025 1:00 PM EDT Office Visit [facility] [address] [place] [address] Wojciech Li MD 230 [place] [address] 03/22/2025 11:00 AM EDT Office Visit [facility] [address] [place] [address] 04/07/2025 2:30 PM EDT Office Visit [facility] [address] [place] [address] Moreno, Tyra, OD [address] [place] [address] documented as of this encounter Procedures Procedure Name Priority Date/Time Associated Diagnosis Comments POCT GLUCOSE Routine 12/21/2024 12:36 PM EST Dizziness documented in this encounter Results * POCT Glucose (12/21/2024 12:36 PM EST) [facility] Glucose Blood, POC 73 60 - 200 mg/dL QC Media Lot # [id number] Lot# Expiration Date 140400 Blood Capillary blood specimen / Unknown 12/21/2024 12:36 PM EST Wojciech Carver MD POINT OF CARE TEST EN TER/EDIT ORDERABLES Final Result documented in this encounter Visit Diagnoses Diagnosis Dizziness Dizziness and giddiness documented in this encounter Additional Health Concerns Assessment Noted Time PHQ-9 Depression Total Score: 9 09/14/20 24 1:06 PM EST documented as of this encounter Care Teams Public Health Educator Relationship Specialty Start Date End Date Wojciech Li MD [address] [place] [address] PCP - General Internal Medicine 04/12/24 documented as of this encounter
--- OUTSIDE RECORDS SUMMARY | 2025-01-03 14:48 | XMS_ITS | Encounter Summary ---
Author Organization [employer] Address 75 [facility] 7t [place] [address] Care Team Providers Care Cad Engineer Name Role Phone Wojciech Li MD Primary Care Provide r Reason for Visit * Reason Comments Med Refill Encounter Details Date Type Department Care Team (Late st Contact Info) Description 12/27/2024 Refill [facility] [address] [place], [place] [phone] Name, MD Moiz 230 [place] [address] Essential hypertension Social History Tobacco Use Types [...] Info) Description 01/06/2025 9:00 AM EDT Telemedicine [facility] [address] [place] [address] 01/13/2025 1:00 PM EDT Office Visit [facility] [address] [place] [address] Wojciech Li MD 230 [place] [address] 03/22/2025 11:00 AM EDT Office Visit [facility] [address] [place] [address] 04/07/2025 2:30 PM EDT Office Visit [facility] [address] [place] [address] [phone] Tyra Mayer, DIEUDONNE 230 [place] [address] documented as of this encounter Visit Diagnoses Diagnosis Essential hypertension Unspecified essential hypertension documented in this encounter Additional Health Concerns Assessment Noted Time PHQ-9 Depression Total Score: 9 09/14/20 24 1:06 PM EST documented as of this encounter Care Teams Cad Engineer Relationship Specialty Start Date End Date Wojciech Li MD [address] [place] [address] PCP - General Internal Medicine 04/12/24 documented as of this encounter
--- OUTSIDE RECORDS SUMMARY | 2025-01-03 14:48 | XMS_ITS | Encounter Summary ---
Author Organization [employer] Address [address] [facility] [address] 7t [place] [address] Care Team Providers Care Manager Distribution Name Role Phone Wojciech Li MD Primary Care Provide r Encounter Details Date Type Department Care Team (Latest Contact Info) Description 12/21/2024 Travel Social History Tobacco Use Types Packs/Day [...] with others, in a hotel, in a mcc, living outside on the street, on a [...] Info) Description 01/06/2025 9:00 AM EDT Telemedicine [facility] 230 [place] [address] 01/13/2025 1:00 PM EDT Office Visit [facility] [address] [place] [address] Wojciech Li MD 230 [place] [address] 03/22/2025 11:00 AM EDT Office Visit [facility] [address] [place] [address] 04/07/2025 2:30 PM EDT Office Visit [facility] [address] [place] [address] Moreno, Tyra, OD 230 [place] [address] documented as of this encounter Visit Diagnoses Not on filedocumented in this encounter Additional Health Concerns Assessment Noted Time PHQ-9 Depression Total Score: 9 09/14/20 24 1:06 PM EST documented as of this encounter Care Teams Manager Distribution Relationship Specialty Start Date End Date Wojciech Li MD 230 [place] [address] PCP - General Internal Medicine 6/17/24 documented as of this encounter
--- OUTSIDE RECORDS SUMMARY | 2025-01-03 14:48 | XMS_ITS | Encounter Summary ---
Author Organization [employer] Address [address] [facility] [address] 7t [place] [address] Care Team Providers Care Launderer Hand Name Role Phone Wojciech Li MD Primary Care Provide r Reason for Visit * Reason Onset Date Comments Appointment Request 06/08/2024 Encounter Details Date Type Department Care Team ([facility] st Contact Info) Description 06/08/2024 Telephone [facility] [address] [place] [address] Wojciech Li MD 230 [place] [address] Appointment Request Social History Tobacco Use Types [...] or to reschedule. Please contact pt at [phone]. (Hebrew Speaker) documented in this encounter Plan of Treatment Upcoming Encounters Date Type Department Care Team (Late st Contact Info) Description 01/06/2025 9:00 AM EDT Telemedicine [facility] [address] [place] [address] 01/13/2025 1:00 PM EDT Office Visit [facility] [address] [place] [address] Wojciech Li MD 230 [place] [address] 03/22/2025 11:00 AM EDT Office Visit [facility] 230 [place] [address] 04/07/2025 2:30 PM EDT Office Visit [facility] OPTOMET[facility] [address] [place] [address] Tyra Mayer, OD 230 [place] [address] documented as of this encounter Visit Diagnoses Not on filedocumented in this encounter Additional Health Concerns Assessment Noted Time PHQ-9 Depression Total Score: 0 06/10/20 23 10:47 AM EDT documented as of this encounter Care Teams Launderer Hand Relationship Specialty Start Date End Date Wojciech Li MD [address] [place] [address] PCP - General Internal Medicine 04/12/24 documented as of this encounter
--- OUTSIDE RECORDS SUMMARY | 2025-01-03 14:48 | XMS_ITS | Encounter Summary ---
Author Organization [employer] Address 75 [facility] 7t [place] [address] Care Team Providers Care Brazing Machine Operator Automatic Name Role Phone Wojciech Li MD Primary Care Provide r Reason for Visit * Reason Comments Med Refill Encounter Details Date Type Department Care Team (Late st Contact Info) Description 12/07/[address] [facility] [address] [place], [place] [phone] Wojciech Li MD [address] [place], [place] [phone] Other chronic pain; Chronic midline low back [...] Description 01/06/2025 9:00 AM EDT Telemedicine [facility] MEDICINE [address] [place] [address] 01/13/2025 1:00 PM EDT Office Visit [facility] MED[facility]INE [address] [place] [address] Wojciech Li MD [address] [place] [address] 03/22/2025 11:00 AM EDT Office Visit [facility] [address] [place] [address] 04/07/2025 2:30 PM EDT Office Visit [facility] OPTOMETRY [address] [place] [address] Tyra Mayer, OD 230 [place] [address] documented as of this encounter Visit Diagnoses Diagnosis Other chronic pain Chronic midline low back pain without sciatica documented in this encounter Additional Health Concerns Assessment Noted Time PHQ-9 Depression Total Score: 9 09/14/20 24 1:06 PM EST documented as of this encounter Care Teams Brazing Machine Operator Automatic Relationship Specialty Start Date End Date Wojciech Li MD [address] [place] [address] PCP - General Internal Medicine 04/12/24 documented as of this encounter
--- OUTSIDE RECORDS SUMMARY | 2025-01-03 14:48 | XMS_ITS | Encounter Summary ---
Author Organization [employer] Address [address] [facility] [address] 7t [place] [address] Care Team Providers Care Bottle Packer Name Role Phone Wojciech Li MD Primary Care Provide r Encounter Details Date Type Department Care Team (Late st Contact Info) Description 12/21/2024 11:00 AM EST Office Visit [facility] [address] [place] [address] Catalina Alex, NELI [address] [place] [address] Chronic midline low back pain without sciatica (Primary Dx); Long-term current use of opiate analgesic Social History Tobacco Use Types Packs/Day Years [...] as of this encounter Progress Notes * Catalina Alex, TANK RIVETER - 12/21/2024 11:00 AM EST Subjective: Brandie Asif is a 54 y.o. female w/ PMH asthma, COPD, hypertension, IBS, OA, T2DM, depression, and bipolar disorder, who presents to the office for - Chronic Pain Clinic Group visits. Initial Group visit: 12/21/24 Group Visit Number: 1 Last PCP visit: 11/16/24, Dr. Penny Group Confidentiality signed: 12/21/24 Group Topic: Simeon/Tony Updates: - [facility] ED visit on 12/19/24 s/p fall at home landing on right hip. Short course rx of tramadol 50mg BID PRN. Has been ambulating with RW at home. Ambulatory supports and fall prevention strategies. Chronic Pain History: Associated Diagnosis: chronic low back pain, s/p ALIF L4-L5 on 11/06/[address] Kaufman. Relevant Imaging: MRI Lumbar spine 10/2024, IMPRESSION: Central and right subarticular disc herniation L5-S1 likely encroaching right S1 nerve root. Consider calcium metabolic disorder/osteopenia versus osteoporosis Current pharm tx: oxycodone 5mg Q8H PRN (prescribed short course of Tramadol following ED visit butunclear if med was filled at pharmacy). Medication: States taking medication as prescribed. Related Specialists: PS&S, Neurosurgery - Dr. Díaz, psychiatry - Dr. Goyal Review of Systems Constitutional: Negative for chills and fever. Respiratory: Negative for wheezing. Cardiovascular: Negative for chest pain and palpitations. Gastrointestinal: Negative for diarrhea and vomiting. Musculoskeletal: Positive for arthralgias. Physical Exam Constitutional: Appearance: Normal appearance. Pulmonary: Effort: Pulmonary effort is normal. Neurological: Mental Status: She is alert and oriented to person, place, and time. Psychiatric: Mood and Affect: Mood normal. Behavior: Behavior normal. Problem List Items Addressed This Visit Other Chronic low back pain - Primary Current Assessment & Plan -Follow up with Neurosurgery as scheduled -Good engagement and participation with Group Medical Visit model, today was first visit. -Encouraged multifactorial approach to pain control including pharm and non- pharm modalities -UTOX and Pill count as expected Long-term current use of opiate analgesic Overview Medication: oxycodone 5mg Q8H PRN Indication: lumbar disc herniation L5-S1, s/p ALIP L4-L5 Last COCONUT JELLY ROLLER Agreement: 11/04/24 Current Assessment & Plan Timeline: - 12/21/24: Initial Group visit - utox/pill count wnl Relevant Orders POCT BARRINGTON-14 Urine Drug Screen (Completed) Follow up: 1-3 months for Group Chronic Pain Clinic. Follow up as scheduled with PCP, sooner as needed. * Yusra Ledezma RN - 12/21/2024 11:00 AM EST .[employer] JE[employer] ROLLER passenger solicitor: PDMP reviewed today. Last fill date: 12/08/24 (Oxycodone 5mg tid PRN) count was (57), anticipated (43) to be remaining. .UTOX performed, positive for OXY only, as expected. documented in this encounter Miscellaneous Notes * Assessment & Plan Note - NELI Sunshine - 12/26/2024 8:08 PM ESTAssociated Problem(s): Long-term current use of opiate analgesic Timeline: - 12/21/24: Initial Group visit - utox/pill count wnl * Assessment & Plan Note - NELI Sunshine - 12/21/2024 6:52 AM ESTAssociated Problem(s): Chronic low back pain -Follow up with Neurosurgery as scheduled -Good engagement and participation with Group Medical Visit model, today was first visit. -Encouraged multifactorial approach to pain control including pharm and non- pharm modalities -UTOX and Pill count as expected documented in this encounter Plan of Treatment Upcoming Encounters Date Type Department Care Team (Late st Contact Info) Description 01/06/2025 9:00 AM EDT Telemedicine [facility] [address] [place] [address] 01/13/2025 1:00 PM EDT Office Visit [facility] [address] [place] [address] Wojciech Li MD [address] [place] [address] 03/22/2025 11:00 AM EDT Office Visit [facility] [address] [place] [address] 04/07/2025 2:30 PM EDT Office Visit [facility] OPTOMETRY [address] [place] [address] Tyra Mayer, OD 230 [place] [address] documented as of this encounter Procedures Procedure Name Priority Date/Time Associated Diagnosis Comments POCT BARRINGTON-14 URINE DRUG SCREEN Routine 12/21/2024 1:30 PM EST Long-term current use of opiate analgesic documented in this encounter Results * POCT BARRINGTON-14 Urine Drug Screen (12/21/2024 1:30 PM EST) Oxycodone Screen, Urine Positive Urine Urine specimen obtained by clean catch procedure / Unknown 12/21/2024 1:30 PM EST Narrative Yusra Ledezma RN - 12/21/2024 1:30 PM EST .UTOX cup Lot#[id number] Exp. 06/15/26 Internal Pass Control Catalina Alex TANK RIVETER POINT OF CARE TEST ENTER/EDIT ORDERABLES Final Result documented in this encounter Visit Diagnoses Diagnosis Chronic midline low back pain without sciatica- Primary Long-term current use of opiate analgesic Encounter for long-term (current) use of other medications documented in this encounter Additional Health Concerns Assessment Noted Time PHQ-9 Depression Total Score: 9 09/14/20 24 1:06 PM EST documented as of this encounter Care Teams Bottle Packer Relationship Specialty Start Date End Date Wojciech Li MD [address] [place] [address] PCP - General Internal Medicine 04/12/24 documented as of this encounter
--- OUTSIDE RECORDS SUMMARY | 2025-01-03 14:48 | XMS_ITS | Encounter Summary ---
Author Organization [employer] Address 75 [facility] 7t [place] [address] Care Team Providers Care Upholsterer Outside Name Role Phone Wojciech Li MD Primary Care Provide r Reason for Visit * Reason Onset Date Comments Med Refill 09/20/2024 Encounter Details Date Type Department Care Team ([facility] st Contact Info) Description 09/20/2024 Telephone [facility] [address] [place] [address] Wojciech Li MD [address] [place] [address] Med Refill Social History Tobacco Use Types [...] to Hydrocodone 5-325. Please contact pt at [phone]. (Solomon Islander Speaker) documented in this encounter Plan of Treatment Upcoming Encounters Date Type Department Care Team (Late st Contact Info) Description 01/06/2025 9:00 AM EDT Telemedicine [facility] MED[facility]INE [address] [place] [phone] 01/13/2025 1:00 PM EDT Office Visit [facility] [address] [place] [address] Wojciech Li MD [address] [place] [address] 03/22/2025 11:00 AM EDT Office Visit [facility] [address] [place] [address] 04/07/2025 2:30 PM EDT Office Visit [facility] OPTOMETRY [address] [place] [address] Moreno, Megan, OD [address] [place] [address] documented as of this encounter Visit Diagnoses Not on filedocumented in this encounter Additional Health Concerns Assessment Noted Time PHQ-9 Depression Total Score: 9 09/14/20 24 1:06 PM EST documented as of this encounter Care Teams Upholsterer Outside Relationship Specialty Start Date End Date Wojciech Li MD [address] [place] [address] PCP - General Internal Medicine 04/12/24 documented as of this encounter
--- OUTSIDE RECORDS SUMMARY | 2025-01-03 14:48 | XMS_ITS | Encounter Summary ---
Author Organization [employer] Address [address] [facility] [address] 7t [place] [address] Care Team Providers Care Cotton Factor Name Role Phone Wojciech Li MD Primary Care Provide r Wojciech Li MD Primary Care Provide r Wojciech Li MD Primary Care Provide r Encounter Details Date Type Department Care Team (Late st Contact Info) Description 12/13/2022 Orders Only [facility] [address] [place] [address] Dayanara Jiménez LPN Social History Tobacco Use [...] Info) Description 01/06/2025 9:00 AM EDT Telemedicine [facility]INE [address] [place] [address] 01/13/2025 1:00 PM EDT Office Visit [facility] MED[facility]INE [address] [place] [address] Wojciech Li MD [address] [place] [address] 03/22/2025 11:00 AM EDT Office Visit [facility]INE [address] [place] [address] 04/07/2025 2:30 PM EDT Office Visit [facility] OPTOMETRY [address] [facility] [address] Moreno, Tyra, OD [address] [place] [address] documented as of this encounter Visit Diagnoses Not on filedocumented in this encounter Care Teams Cotton Factor Relationship Specialty Start Date End Date Wojciech Li MD [address] [place] [address] PCP - General Internal Medicine 06/01/14 03/04/24 [place] [address] PCP - General Internal Medicine 03/12/24 03/12/24 Wojciech Li MD [address] [place] [address] PCP - General Internal Medicine 04/12/24 documented as of this encounter
--- OUTSIDE RECORDS SUMMARY | 2025-01-03 14:48 | XMS_ITS | Encounter Summary ---
Author Organization [employer] Address 75 [facility] 7t [place] [address] Care Team Providers Care Cloth Weaver Name Role Phone Wojciech Li MD Primary Care Provide r Wojciech Li MD Primary Care Provide r Wojciech Li MD Primary Care Provide r Reason for Visit * Reason Onset Date Comments Med Refill 04/18/2023 Encounter Details Date Type Department Care Team ([facility] st Contact Info) Description 04/18/2023 Telephone [facility] [address] [place], [place] [phone] Wojciech Li MD [address] [place], [place] [phone] Med Refill Social History Tobacco Use Types [...] [facility] [address] [place] [address] 01/13/2025 1:00 PM EDT Office Visit [facility] MED[facility] [address] [place] [address] Wojciech Li MD [address] [place] [address] 03/22/2025 11:00 AM EDT Office Visit [facility] MEDICINE [address] [place] [address] 04/07/2025 2:30 PM EDT Office Visit [facility] OPTOMETRY [address] [place] [address] Tyra Mayer, OD [address] [place] [address] documented as of this encounter Visit Diagnoses Not on filedocumented in this encounter Care Teams Cloth Weaver Relationship Specialty Start Date End Date Wojciech Li MD [address] [place] [address] PCP - General Internal Medicine 06/01/14 03/04/24 Wojciech Li MD [address] [place] [address] PCP - General Internal Medicine 03/12/24 03/12/24 Wojciech Li MD [address] [place] [address] PCP - General Internal Medicine 04/12/24 documented as of this encounter
--- OUTSIDE RECORDS SUMMARY | 2025-01-03 14:48 | XMS_ITS | Encounter Summary ---
Author Organization [employer] Address [address] [facility] [address]t [place] [address] Care Team Providers Care Faculty Research Assistant Name Role Phone Wojciech Li MD Primary Care Provide r Reason for Visit * Reason Onset Date Comments ER Follow-up 12/06/2024 Encounter Details Date Type Department Care Team ([facility] st Contact Info) Description 12/06/2024 Telephone [facility] MEDICINE [address] [place] [address] Ivette Barahona, RN [address] [place] [address] ER Follow-up Social History Tobacco Use Types [...] with others, in a hotel, in a jail, living outside on the street, on a [...] lobby requesting ED follow up. Seen at [facility] ED yesterday 12/05/24 for migraine. Pt still symptomatic. Refusing appt in [facility] or with any other provider, only wants PCP. Booked for 12/21 with PCP but strongly encouraged if migraine worsens to come to [facility]. Informed of NTTS. documented in this encounter Plan of Treatment Upcoming Encounters Date Type Department Care Team (Late st Contact Info) Description 01/06/2025 9:00 AM EDT Telemedicine [facility] MEDICINE [address] [place] [address] 01/13/2025 1:00 PM EDT Office Visit [facility] MED[facility]INE [address] [place] [address] Wojciech Li MD [address] [place] [address] 03/22/2025 11:00 AM EDT Office Visit [facility] MED[facility]INE [address] [place], [place] [phone] 04/07/2025 2:30 PM EDT Office Visit [facility] OPTOMETRY [address] [place] [address] Moreno, Tyra, OD 230 [place], [place] [phone] documented as of this encounter Visit Diagnoses Not on filedocumented in this encounter Additional Health Concerns Assessment Noted Time PHQ-9 Depression Total Score: 9 09/14/20 24 1:06 PM EST documented as of this encounter Care Teams Faculty Research Assistant Relationship Specialty Start Date End Date Wojciech Li MD [address] [place], [place] [phone] PCP - General Internal Medicine 04/12/24 documented as of this encounter
--- OUTSIDE RECORDS SUMMARY | 2025-01-03 14:48 | XMS_ITS | Encounter Summary ---
Author Organization [employer] Address [address] [facility] [address] 7t [place] [address] Care Team Providers Care Afternoon Babysitter Name Role Phone Wojciech Li MD Primary Care Provide r Wojciech Li MD Primary Care Provide r Wojciech Li MD Primary Care Provide r Encounter Details Date Type Department Care Team (Latest Contact Info) Description 07/19/2019 Abstract [facility], Provider, DDS Social History Tobacco [...] Info) Description 01/06/2025 9:00 AM EDT Telemedicine [facility] 230 [place] [address] 01/13/2025 1:00 PM EDT Office Visit [facility] [address] [place] [address] [phone] Wojciech Li MD 230 [place] [address] 03/22/2025 11:00 AM EDT Office Visit [facility] 230 [place] [address] 04/07/2025 2:30 PM EDT Office Visit [facility] [address] [place] [phone] Moreno, Tyra, OD 230 [facility] [place] [address] documented as of this encounter Visit Diagnoses Not on filedocumented in this encounter Care Teams Afternoon Babysitter Relationship Specialty Start Date End Date Wojciech Li MD [address] [place] [address] PCP - General Internal Medicine 06/01/14 03/04/24 Wojciech Li MD 230 [facility] [place] [address] PCP - General Internal Medicine 03/12/24 03/12/24 Wojciech Li MD 230 [facility] [place] [address] PCP - General Internal Medicine 04/12/24 documented as of this encounter
--- OUTSIDE RECORDS SUMMARY | 2025-01-03 14:48 | XMS_ITS | Encounter Summary ---
Author Organization [employer] Address 75 [facility] 7t [place] [address] Care Team Providers Care Head Porter Name Role Phone Wojciech Li MD Primary Care Provide r Wojciech Li MD Primary Care Provide r Wojciech Li MD Primary Care Provide r Encounter Details Date Type Department Care Team (Late st Contact Info) Description 12/09/2022 Orders Only [facility] [address] [place] [phone] Brina Lorenz LPN Social History Tobacco Use [...] Department Care Team (Late Contact Info) Description 01/06/2025 9:00 AM EDT Telemedicine [facility] [address] [place] [address] [phone] 01/13/2025 1:00 PM EDT Office Visit [address] [address] Wojciech Li MD [address] [place] [address] 03/22/2025 11:00 AM EDT Office Visit [facility] [address] [facility] [place] [address] 04/07/2025 2:30 PM EDT Office Visit [facility] [address] [place] [address] Tyra Mayer, OD 230 [facility] [place] [address] documented as of this encounter Visit Diagnoses Not on filedocumented in this encounter Care Teams Head Porter Relationship Specialty Start Date End Date Wojciech Li MD [address] [facility] [place] [address] PCP - General Internal Medicine 06/01/14 03/04/24 Wojciech Li MD [address] [facility] [place] [address] PCP - General Internal Medicine 03/12/24 03/12/24 Wojciech iL MD [address] [facility] [place] [address] PCP - General Internal Medicine 04/12/24 documented as of this encounter
--- OUTSIDE RECORDS SUMMARY | 2025-01-03 14:48 | XMS_ITS | Encounter Summary ---
Author Organization [employer] Address [address] [facility] [address] 7t [place] [address] Care Team Providers Care County Assessor Name Role Phone Wojciech Li MD Primary Care Provide r Reason for Visit * Reason Comments Med Refill Encounter Details Date Type Department Care Team (Late st Contact Info) Description 08/04/2024 Refill [facility] 230 [place], [place] [phone] Wojciech Li MD 230 [place], [place] [phone] Seasonal allergies Social History Tobacco Use Types [...] EDT Telemedicine [facility] 230 [place] [address] 01/13/2025 1:00 PM EDT Office Visit [facility] [address] [place] [address] Wojciech Li MD 230 [place] [address] 03/22/2025 11:00 AM EDT Office Visit [facility] [address] [place] [address] 04/07/2025 2:30 PM EDT Office Visit [facility] 267 [place] [address] Moreno, Tyra, OD 230 [place] [address] documented as of this encounter Visit Diagnoses Diagnosis Seasonal allergies Allergic rhinitis, cause unspecified documented in this encounter Additional Health Concerns Assessment Noted Time PHQ-9 Depression Total Score: 0 06/10/20 23 10:47 AM EDT documented as of this encounter Care Teams County Assessor Relationship Specialty Start Date End Date Wojciech Li MD [address] [place] [address] PCP - General Internal Medicine 04/12/24 documented as of this encounter
--- OUTSIDE RECORDS SUMMARY | 2025-01-03 14:49 | XMS_ITS | Encounter Summary ---
Author Organization [employer] Address 75 [facility] 7t [place] [address] Care Team Providers Care Investigator Vice Name Role Phone Wojciech Li MD Primary Care Provide r Reason for Visit * Reason Onset Date Comments Med Refill 12/01/2024 Encounter Details Date Type Department Care Team (Late st Contact Info) Description 12/01/2024 Refill [facility] 230 [place] [address] Wojciech Li MD 230 [place] [address] Chronic midline low back pain without sciatica [...] immediate release tablet To be sent to: [facility] - [place], [place] - [address] [place] [address] documented in this encounter Plan of Treatment Upcoming Encounters Date Type Department Care Team (Late st Contact Info) Description 01/06/2025 9:00 AM EDT Telemedicine [facility] [address] [place] [address] 01/13/2025 1:00 PM EDT Office Visit [facility] [address] [place] [address] Wojciech Li MD [address] [place] [address] 03/22/2025 11:00 AM EDT Office Visit [facility] 230 [place] [address] 04/07/2025 2:30 PM EDT Office Visit [facility] [address] [place] [address] Tyra Mayer, OD 230 [place] [address] documented as of this encounter Visit Diagnoses Diagnosis Chronic midline low back pain without sciatica documented in this encounter Additional Health Concerns Assessment Noted Time PHQ-9 Depression Total Score: 9 09/14/20 24 1:06 PM EST documented as of this encounter Care Teams Investigator Vice Relationship Specialty Start Date End Date Wojciech Li MD 230 [place] [address] PCP - General Internal Medicine 04/12/24 documented as of this encounter
--- OUTSIDE RECORDS SUMMARY | 2025-01-03 14:49 | XMS_ITS | Encounter Summary ---
Author Organization [employer] Address [address] [facility] [address] 7t [place] [address] Care Team Providers Care Glass Sander Belt Name Role Phone Wojciech Li MD Primary Care Provide r Reason for Visit * Reason Onset Date Comments Med Refill 12/06/2024 Encounter Details Date Type Department Care Team ([facility] st Contact Info) Description 12/06/2024 Refill [facility] [address] [place] [address] Yusra Ledezma, RN 505 [place] [address] Chronic midline low back pain without sciatica; [...] Info) Description 01/06/2025 9:00 AM EDT Telemedicine [facility] [address] [place] [address] 01/13/2025 1:00 PM EDT Office Visit [facility] 230 [place] [address] Wojciech Li MD 230 [place] [address] 03/22/2025 11:00 AM EDT Office Visit [facility] 230 [place] [address] 04/07/2025 2:30 PM EDT Office Visit [facility] [address] [place] [address] Tyra Mayer, OD 230 [place] [address] documented as of this encounter Visit Diagnoses Diagnosis Chronic midline low back pain without sciatica Other chronic pain documented in this encounter Additional Health Concerns Assessment Noted Time PHQ-9 Depression Total Score: 9 09/14/20 24 1:06 PM EST documented as of this encounter Care Teams Glass Sander Belt Relationship Specialty Start Date End Date Wojciech Li MD 230 [place] [address] PCP - General Internal Medicine 04/12/24 documented as of this encounter
--- OUTSIDE RECORDS SUMMARY | 2025-01-03 14:49 | XMS_ITS | Encounter Summary ---
Author Organization [employer] Address 75 [facility] 7t [place] [address] Care Team Providers Care Manager Client Service Name Role Phone Wojciech Li MD Primary Care Provide r Reason for Visit * Reason Comments Med Refill Encounter Details Date Type Department Care Team (Late st Contact Info) Description 12/01/2024 Refill [facility] 230 [place] [address] Dayanara Olmstead DO 230 [place], [place] [phone] Seasonal allergies Social History Tobacco Use Types [...] Info) Description 01/06/2025 9:00 AM EDT Telemedicine [facility] [address] [place] [address] 01/13/2025 1:00 PM EDT Office Visit [facility] [address] [place] [address] Wojciech Li MD 230 [place] [address] 03/22/2025 11:00 AM EDT Office Visit [facility] 230 [place] [address] 04/07/2025 2:30 PM EDT Office Visit [facility] [address] [place] [address] Tyra Mayer, DIEUDONNE 230 [place] [address] documented as of this encounter Visit Diagnoses Diagnosis Seasonal allergies Allergic rhinitis, cause unspecified documented in this encounter Additional Health Concerns Assessment Noted Time PHQ-9 Depression Total Score: 9 09/14/20 24 1:06 PM EST documented as of this encounter Care Teams Manager Client Service Relationship Specialty Start Date End Date Wojciech Li MD 230 [place] [address] PCP - General Internal Medicine 04/12/24 documented as of this encounter
--- OUTSIDE RECORDS SUMMARY | 2025-01-03 14:49 | XMS_ITS | Encounter Summary ---
Author Organization [employer] Address [address] [facility] [address] 7t [place] [address] Care Team Providers Care Milled Rubber Tender Name Role Phone Wojciech Li MD Primary Care Provide r Wojciech Li MD Primary Care Provide r Wojciech Li MD Primary Care Provide r Reason for Visit * Reason Comments Med Refill Encounter Details Date Type Department Care Team (Late st Contact Info) Description 09/15/2023 Refill [facility] 230 [place], [place] [phone] Wojciech Li MD 230 [place], [place] [phone] Type 2 diabetes mellitus without complication, unspecified whether local company intermodal truck driver insulin use ([facility]) Social History Tobacco Use Types [...] Info) Description 01/06/2025 9:00 AM EDT Telemedicine [facility] 230 [place] [address] 01/13/2025 1:00 PM EDT Office Visit [facility] [address] [place] [address] Wojciech Li MD 230 [place] [address] 03/22/2025 11:00 AM EDT Office Visit [facility] 230 [place] [address] 04/07/2025 2:30 PM EDT Office Visit [facility] [address] [place] [address] Tyra Mayer, DIEUDONNE 230 [place] [address] documented as of this encounter Visit Diagnoses Diagnosis Type 2 diabetes mellitus without complication, unspecified whether long-term insulin use ([facility]) documented in this encounter Additional Health Concerns Assessment Noted Time PHQ-9 Depression Total Score: 0 06/10/20 23 10:47 AM EDT documented as of this encounter Care Teams Milled Rubber Tender Relationship Specialty Start Date End Date Wojciech Li MD 230 [place] [address] PCP - General Internal Medicine 06/01/14 03/04/24 Wojciech Li MD 230 [place] [address] PCP - General Internal Medicine 03/12/24 03/12/24 Wojciech Li MD 230 [place] [address] PCP - General Internal Medicine 04/12/24 documented as of this encounter
--- OUTSIDE RECORDS SUMMARY | 2025-01-03 14:49 | XMS_ITS | Encounter Summary ---
Author Organization [employer] Address 75 [facility] 7t [place] [address] Care Team Providers Care Line Locator Name Role Phone Wojciech Li MD Primary Care Provide r Reason for Visit * Reason Onset Date Comments Med Refill 12/01/2024 Encounter Details Date Type Department Care Team (Late st Contact Info) Description 12/01/[address] [facility]INE 230 [place] [address] Wojciech Li MD 230 [place] [address] Other chronic pain Social History Tobacco Use [...] with others, in a hotel, in a group home, living outside on the street, on [...] Telephone Encounter - Chauncey Chavarria - 12/01/2024 1:17 PM EST TC from pt requesting medication refill. Medications needing refill : Mapap 500 MG capsule To be sent to: [facility] - [place], [place] - [address] [place] [address] documented in this encounter Plan of Treatment Upcoming Encounters Date Type Department Care Team (Late st Contact Info) Description 01/06/2025 9:00 AM EDT Telemedicine [facility] [address] [place] [address] 01/13/2025 1:00 PM EDT Office Visit [facility] [address] [place] [address] Wojciech Li MD [address] [place] [address] 03/22/2025 11:00 AM EDT Office Visit [facility]INE [address] [place] [address] 04/07/2025 2:30 PM EDT Office Visit [facility] [address] [place] [address] Tyra Mayer, OD 230 [place] [address] documented as of this encounter Visit Diagnoses Diagnosis Other chronic pain documented in this encounter Additional Health Concerns Assessment Noted Time PHQ-9 Depression Total Score: 9 09/14/20 24 1:06 PM EST documented as of this encounter Care Teams Line Locator Relationship Specialty Start Date End Date Wojciech Li MD 230 [place] [address] PCP - General Internal Medicine 04/12/24 documented as of this encounter
--- OUTSIDE RECORDS SUMMARY | 2025-01-03 14:49 | XMS_ITS | Encounter Summary ---
Author Organization [employer] Address [address] [facility] [address] 7t [place] [address] Care Team Providers Care Metal Washing Machine Operator Name Role Phone Wojciech Li MD Primary Care Provide r Wojciech Li MD Primary Care Provide r Wojciech Li MD Primary Care Provide r Reason for Visit * Reason Comments Med Refill Encounter Details Date Type Department Care Team (Late st Contact Info) Description 11/03/2023 Refill [facility] 230 [place], [place] [phone] Thanh Esposito, PharmD 230 [place] [address] Essential hypertension Social History Tobacco Use Types [...] Info) Description 01/06/2025 9:00 AM EDT Telemedicine [facility] 230 [place] [address] 01/13/2025 1:00 PM EDT Office Visit [facility] [address] [place] [address] Wojciech Li MD 230 [place] [address] 03/22/2025 11:00 AM EDT Office Visit [facility] [address] [place] [address] 04/07/2025 2:30 PM EDT Office Visit [facility] [address] [place] [address] Moreno, Tyra, OD 230 [place] [address] documented as of this encounter Visit Diagnoses Diagnosis Essential hypertension Unspecified essential hypertension documented in this encounter Additional Health Concerns Assessment Noted Time PHQ-9 Depression Total Score: 0 06/10/20 23 10:47 AM EDT documented as of this encounter Care Teams Metal Washing Machine Operator Relationship Specialty Start Date End Date Wojciech Li MD [address] [place] [address] PCP - General Internal Medicine 06/01/14 03/04/24 Wojciech Li MD [address] [place] [address] PCP - General Internal Medicine 03/12/24 03/12/24 Wojciech Li MD [address] [place] [address] PCP - General Internal Medicine 04/12/24 documented as of this encounter
--- OUTSIDE RECORDS SUMMARY | 2025-01-03 14:49 | XMS_ITS | Encounter Summary ---
Author Organization [employer] Address [address] [facility] [address] 7t [place] [address] Care Team Providers Care Check Writing Machine Operator Name Role Phone Wojciech Li MD Primary Care Provide r Reason for Visit * Reason Comments Med Refill Encounter Details Date Type Department Care Team ([facility] st Contact Info) Description 12/10/2024 Refill [facility] 230 [place] [address] Miriam Lai MD 505 [place] [address] Acute exacerbation of COPD with asthma (CMS/HCC); [...] Info) Description 01/06/2025 9:00 AM EDT Telemedicine [facility] [address] [place] [address] 01/13/2025 1:00 PM EDT Office Visit [facility] [address] [place] [address] Wojciech Li MD 230 [place] [address] 03/22/2025 11:00 AM EDT Office Visit [facility] [address] [place] [address] 04/07/2025 2:30 PM EDT Office Visit [facility] [address] [place] [address] Tyra Mayer, OD 230 [place] [address] documented as of this encounter Visit Diagnoses Diagnosis Acute exacerbation of COPD with asthma (CMS/HCC) Chronic low back pain, unspecified back pain laterality, unspecified whether sciatica present Chronic obstructive pulmonary disease, unspecified COPD type (CMS/HCC) documented in this encounter Additional Health Concerns Assessment Noted Time PHQ-9 Depression Total Score: 9 09/14/20 24 1:06 PM EST documented as of this encounter Care Teams Check Writing Machine Operator Relationship Specialty Start Date End Date Wojciech Li MD 230 [place] [address] PCP - General Internal Medicine 04/12/24 documented as of this encounter
--- OUTSIDE RECORDS SUMMARY | 2025-01-03 14:49 | XMS_ITS | Encounter Summary ---
Author Organization [employer] Address 75 [facility] 7t [place] [address] Care Team Providers Care Employee Welfare Manager Name Role Phone Wojciech Li MD Primary Care Provide r Reason for Visit * Reason Comments Med Refill Encounter Details Date Type Department Care Team ([facility] st Contact Info) Description 12/06/2024 Refill [facility] 230 [place], [place] [phone] Wojciech Li MD 230 [place] [address] Low vitamin D level Social History Tobacco [...] with others, in a hotel, in a residential, living outside on the street, on a [...] Info) Description 01/06/2025 9:00 AM EDT Telemedicine [facility] 230 [place] [address] 01/13/2025 1:00 PM EDT Office Visit [facility] [address] [place] [address] Wojciech Li MD 230 [place] [address] 03/22/2025 11:00 AM EDT Office Visit [facility] 230 [place] [address] 04/07/2025 2:30 PM EDT Office Visit [facility] [address] [place] [address] Tyra Mayer, DIEUDONNE 230 [place] [address] documented as of this encounter Visit Diagnoses Diagnosis Low vitamin D level documented in this encounter Additional Health Concerns Assessment Noted Time PHQ-9 Depression Total Score: 9 09/14/20 24 1:06 PM EST documented as of this encounter Care Teams Employee Welfare Manager Relationship Specialty Start Date End Date Wojciech Li MD 230 [place] [address] PCP - General Internal Medicine 04/12/24 documented as of this encounter
--- OUTSIDE RECORDS SUMMARY | 2025-01-03 14:49 | XMS_ITS | Encounter Summary ---
Author Organization [employer] Address 75 [facility] 7t [place] [address] Care Team Providers Care Oil Pumper Name Role Phone Wojciech Li MD Primary Care Provide r Reason for Visit * Reason Comments Med Refill Encounter Details Date Type Department Care Team (Late st Contact Info) Description 12/03/2024 Refill [facility] 230 [place], [place] [phone] Wojciech Li MD 230 [place], [place] [phone] Other chronic pain; Chronic midline low back [...] Info) Description 01/06/2025 9:00 AM EDT Telemedicine [facility] [address] [place] [address] 01/13/2025 1:00 PM EDT Office Visit [facility] 230 [place] [address] Wojciech Li MD 230 [place] [address] 03/22/2025 11:00 AM EDT Office Visit [facility] 230 [place] [address] 04/07/2025 2:30 PM EDT Office Visit [facility] OPT[facility] [address] [place] [address] Tyra Mayer, OD 230 [place] [address] documented as of this encounter Visit Diagnoses Diagnosis Other chronic pain Chronic midline low back pain without sciatica documented in this encounter Additional Health Concerns Assessment Noted Time PHQ-9 Depression Total Score: 9 09/14/20 24 1:06 PM EST documented as of this encounter Care Teams Oil Pumper Relationship Specialty Start Date End Date Wojciech Li MD 230 [place] [address] PCP - General Internal Medicine 04/12/24 documented as of this encounter
--- OUTSIDE RECORDS SUMMARY | 2025-01-03 14:49 | XMS_ITS | Encounter Summary ---
Author Organization [employer] Address [address] [place] [address] Care Team Providers Care Hand Chain Maker Name Role Phone Wojciech Li MD [...] Info) Description 01/06/2025 9:00 AM EDT Telemedicine [facility] [address] [place] [phone] 01/13/2025 1:00 PM EDT Office Visit [facility] [address] [place] [address] Wojciech Li MD [address] [place] [address] 03/22/2025 11:00 AM EDT Office Visit [facility] [address] [place] [address] 04/07/2025 2:30 PM EDT Office Visit [facility] OPTOMETRY [address] [place] [address] Tyra Mayer, OD [address] [place] [address] documented as of this encounter Procedures Procedure [...] EST Narrative 12/05/2024 4:58 AM EST ? [facility] ?[address] ?[place] [address] ? CT Scan Report ? Signed ? Patient: Yefri,Brandie ?MR#: [id number] ?? [id number] ? : 1970 ?Acct:[id number] ? Age/Sex: 54 / F ?ADM Date: 12/05/24 ? Loc: HO.ED ? Attending Dr: ? Ordering Physician: Marta Barkley ?? Date of Service: 12/05/24 ?? Procedure(s): CT angio head neck ?? Accession Number(s): [id number] ? cc: Marta Barkley; [facility] ? Report Number: ?? [id number]: Total DLP = 2086.00 mGy-cm ? CLINICAL [...] by Conor Martinez MD in OV> ? 12/05/24456 ? DD/ 5 ? TD/TT: 12/05/24455 ? Search Developer: ? Procedure Note Hector Cervantes - 12/05/[address] [address] [address] Scan Report Signed Patient: Toya Asif#: [id number] : 1970Acct:[id number] Age/Sex: 54 / FADM Date: 12/05/24 Loc: HO.ED Attending Dr: Ordering Physician: Marta Barkley Date of Service: 12/05/24 Procedure(s): CT angio head neck Accession Number(s): [id number] cc: Marta Barkley; [facility] Report Number: [id number]: Total DLP = 2086.00 mGy-cm CLINICAL HISTORY: [...] signed by Conor Martinez MD in OV> 12/05/24456 DD/ 5 TD/TT: 12/05/24455 Search Developer: [facility] External Provider IMG CT PROCEDURES Edited Result - Final * Culture, Urine, Routine (12/05/2024 2:58 AM EST) Urine Urine specimen obtained by clean catch procedure / Unknown 12/05/2024 2:58 AM EST 12/05/2024 3:42 AM EST Comment:UACC Narrative [facility] - 12/06/2024 9:02 AM EST Urine Culture No growth. Specimen Source: Urine clean catch us Generic External Data Provider LAB MICROBIOLOGY - GENERAL ORDERABLES Final Result Performing Organization Address [facility] Co de Phone Number [facility] [address] [place] [phone] * (ABNORMAL) Urinalysis, Complete, with Reflex to Culture (12/05/2024 2:58 AM EST) Color Urine Yellow [facility] Appearance Urine Clear [facility] PH 5.5 5.0 - 9.0 [facility] Glucose Urine UA Negative Negative mg/dL [facility] Urine Blood Small (1+)(A) Negative [facility] Specific [place] - Urine 1.015 1.005 - 1.025 [facility] Urine Protein Negative Neg-Trace mg/dL [facility] Urine Ketones Negative Negative mg/dL [facility] Nitrite Urine Negative Negative [facility] Leukocyte Esterase Urine Moderate (2+)(A) Negative [facility] RBC Urine 3-5(A) 0 - 2 /HPF [facility] Urine WBC >50(A) 0 - 5 /HPF [facility] Urine Squamous Epithelial Cell 3-5 0 - 2 /HPF [facility] Urine Bacteria Trace None Seen [facility] Hyaline Casts, Urine 0-2 0 - 2 /LPF [facility] 12/05/2024 2:58 AM EST 12/05/2024 3:02 AM EST [facility] - 12/05/2024 3:39 AM EST [id number], Clean Catch Generic External Data Provider LAB URINE ORDERAB LES Final Result Performing Organization Address [facility] Co de Phone Number [facility] [address] [place] [phone] * XR Chest 1 View (12/05/2024 2:45 AM EST) Anatomical Region Laterality Modality Chest Radiographic Tammie ging 12/05/2024 2:45 AM EST Narrative 12/05/2024 2:47 AM EST ? [facility] ?[address] ?[place] [address] ?XRay Report ? Signed ? Patient: Yefri,Brandie ?MR#: [id number] ?? [id number] ? : 1970 ?Acct:[id number] ? Age/Sex: 54 / F ?ADM Date: 12/05/24 ? Loc: HO.ED ? Attending Dr: ? Ordering Physician: Romero Gastelum MD ?? Date of Service: 12/05/24 ?? Procedure(s): XR chest 1V ?? Accession Number(s): [id number] ? cc: [facility]; Romero Gastelum MD ? CLINICAL HISTORY: [...] ? DD/ 4 ? TD/TT: 12/05/24244 ? Search Developer: ? Procedure Note Hector Cervantes - 12/05/[address] [address] XRay Report Signed Patient: Toya Asif#: [id number] : 1970Acct:[id number] Age/Sex: 54 / FADM Date: 12/05/24 Loc: HO.ED Attending Dr: Ordering Physician: Romero Gastelum MD Date of Service: 12/05/24 Procedure(s): XR chest 1V Accession Number(s): [id number] cc: [facility]; Romero Gastelum MD CLINICAL HISTORY: cough [...] in OV> 12/05/24245 DD/ 4 TD/TT: 12/05/24244 Search Developer: [facility] External Provider IMG XR PROCEDURES Edited Result - Final * SARS-CoV-2 RNA, Influenza A/B, and RSV RNA, Ql NAAT (12/05/2024 2:08 AM EST) Influenza A PCR NEGATIVE Negative [facility] Influenza B PCR NEGATIVE Negative [facility] Resp Syncy Virus RNA Qual PCR NEGATIVE Negative [facility] SARS COV2 PCR NEGATIVE Negative [facility] Comment:All test results mus t [...] use by authorized laboratories.Testing performed on the [facility] GeneXpert utilizingreal-time RT-PCR.All SARS CoV2 and positive influenza A/B results arereported to [facility]. 12/05/2024 2:08 AM EST 12/05/2024 2:13 AM EST us Generic External Data Provider LAB MICROBIOLOGY - GENERAL ORDERABLES Final Result [facility] [address] [place] [address] [phone] * (ABNORMAL) Comprehensive Metabolic Panel (12/05/2024 2:08 AM EST) Sodium 141 135 - 145 mmol/L [facility] Potassium 3.7 3.3 - 5.1 mmol/L [facility] Chloride 106 96 - 108 mmol/L [facility] Carbon Dioxide 23 22 - 29 mmol/L [facility] Anion Gap 16 12 - 20 [facility] Urea Nitrogen (BUN) 18(H) 9 - 16 mg/dL [facility] Creatinine, Serum 0.77 0.5 - 1.4 mg/dL [facility] Creatinine Clr Calc Pharmacy 87.9 [facility] Comment:Provided height and weight: 162.56 cm,84.7 kg.eGFR (calculated from the MDRD study equation) and eCrCl(calculated from the Cockcroft-Gault equation) are based ondifferent parameters and may not yield comparable results.If eCrCl result is absurd, please check patient'sheight/weight. Estimated Glomerular Filt Rate >60 [facility] Comment:Chronic Kidney Disea se: Estimated GFR < 60 mL/min/1.23u9Nbukxk Kidney Disease: Estimated GFR < 15 mL/min/1.73m2 Glucose 130(H) 60 - 115 mg/dL [facility] Calcium 9.9 8.4 - 10.2 mg/dL [facility] Bilirubin, Total 0.3 0.0 - 1.0 mg/dL [facility] Aspartate Amino Transferase 31 5 - 31 U/L [facility] Alanine Aminotransferase 41(H) 0 - 31 U/L [facility] Total Protein 8.4(H) 6.5 - 8.0 g/dL [facility] Albumin Level 4.4 3.5 - 5.0 g/dL [facility] Alkaline Phosphatase 134(H) 39 - 117 U/L [facility] 12/05/2024 2:08 AM EST 12/05/2024 2:13 AM EST us Generic External Data Provider LAB BLOOD ORDERAB LES Final Result Performing Organization Address [facility]/ZIP Co de Phone Number [facility] [address] [place] [phone] * Prothrombin Time-INR (12/05/2024 2:08 AM EST) Prothrombin Time 11.7 10.9 - 12.4 SEC [facility] INTERNATIONAL NORM RATIO 1.0 0.9 - 1.1 [facility] Comment:INTERNATIONAL NORMAL IZED RATIO (INR) [...] ORDERAB LES Final Result Performing Organization Address [facility] Co de Phone Number [facility] [address] [place] [phone] * (ABNORMAL) CBC auto differential (12/05/2024 2:08 AM EST) White Blood Count 8.8 4.8 - 10.8 X10*3/uL [facility] Red Blood Count 4.46 4.20 - 5.50 X10*6/uL [facility] Hemoglobin 14.2 12.0 - 16.0 g/dl [facility] Hematocrit 39.6 37.0 - 47.0 % [facility] Mean Corpuscular Volume 88.8 80.0 - 98.0 fL [facility] Mean Corpuscular Hemoglobin 31.8 27.0 - 33.0 pg [facility] Mean Corpuscular HGB Conc 35.9(H) 31.0 - 35.0 g/dl [facility] Red Cell Distribution Width 12.6 11.0 - 16.0 % [facility] Platelet Count 300 160 - 400 X10*3/uL [facility] Mean Platelet Volume 10.5 9.4 - 12.3 fL [facility] Neutrophils Percent Auto 55.5 45 - 73 % [facility] Imm Gran Pct Auto 0.3 0.0 - 0.4 % [facility] Lymphocytes Percent Auto 35.3 20 - 40 % [facility] Monocytes Percent Auto 6.3 2 - 11 % [facility] Eosinophils Percent Auto 2.3 0 - 4 % [facility] Basophils Percent Auto 0.3 0 - 2 % [facility] NRBC Pct Auto 0.0 0.0 - 0.2 /100WBC [facility] Neutrophils Absolute Auto 4.9 2.0 - 8.3 x10*3/uL [facility] Imm Gran Abs Auto 0.03 0.00 - 0.03 X10*3/uL [facility] Lymphocytes Absolute Auto 3.1 1.2 - 4.9 X10*3/uL [facility] Monocytes Absolute Auto 0.6 0.1 - 1.2 X10*3/uL [facility] Eosinophils Absolute Auto 0.2 0.0 - 0.4 X10*3/uL [facility] Basophils Absolute Auto 0.0 0.0 - 0.2 X10*3/uL [facility] NRBC Abs Auto 0.000 0.0 - 0.012 X10*3/uL [facility] 12/05/2024 2:08 AM EST 12/05/2024 2:13 AM EST us Generic External Data Provider LAB BLOOD ORDERAB LES Final Result [facility] [address] [place] [address] [phone] * (ABNORMAL) Glucose, Whole Blood (12/05/2024 2:01 AM EST) Glucose, Whole Blood 136(H) 60 - 115 mg/dL [facility] Comment:METER #: [id number] 12/05/2024 2:01 AM EST 12/05/2024 2:06 AM EST us Generic External Data Provider LAB BLOOD ORDERAB LES Final Result [facility] [address] [place] [phone] documented in this encounter Visit Diagnoses Not on filedocumented in this encounter Additional Health Concerns Assessment Noted Time PHQ-9 Depression Total Score: 9 09/14/20 24 1:06 PM EST documented as of this encounter Care Teams Hand Chain Maker Relationship Specialty Start Date End Date Wojciech Li MD [address] [place] [phone] PCP - General Internal Medicine 04/12/24 documented as of this encounter
--- OUTSIDE RECORDS SUMMARY | 2025-01-03 14:49 | XMS_ITS | Encounter Summary ---
Author Organization [employer] Address [address] [place] [address] Care Team Providers Care Archivist Military History Name Role Phone Wojciech Li MD Primary Care Provide r Wojciech Li MD Primary Care Provide r Wojciech Li MD Primary Care Provide r Encounter Details Date Type Department Care Team (Late st Contact Info) Description 02/17/2024 Orders Only [facility] [address] [place] [address] Provider, MD Juan Social History Tobacco Use [...] [facility] [address] [place] [address] 01/13/2025 1:00 PM EDT Office Visit [facility] [address] [place] [phone] Wojciech Li MD [address] [place] [address] 03/22/2025 11:00 AM EDT Office Visit [facility] [address] [place] [address] 04/07/2025 2:30 PM EDT Office Visit [facility] OPTOMETRY [address] [place] [address] Tyra Mayer, OD [address] [place] [address] documented as of this encounter Procedures Procedure [...] documented as of this encounter Care Teams Archivist Military History Relationship Specialty Start Date End Date Wojciech Li MD [address] [place] [address] PCP - General Internal Medicine 06/01/14 03/04/24 Wojciech Li MD [address] [place] [address] PCP - General Internal Medicine 03/12/24 03/12/24 Wojciech Li MD [address] [place] [address] PCP - General Internal Medicine 04/12/24 documented as of this encounter
--- OUTSIDE RECORDS SUMMARY | 2025-01-03 14:49 | XMS_ITS | Encounter Summary ---
Author Organization [employer] Address [address] [facility] [address] [place] [address] Care Team Providers Care Billet Recorder Name Role Phone Wojciech Li MD Primary Care Provide r Reason for Visit * Reason Onset Date Comments Med Refill 12/06/2024 Encounter Details Date Type Department Care Team ([facility] st Contact Info) Description 12/06/2024 Telephone [facility] [address] [place] [address] Wojciech Li MD [address] [place] [address] Med Refill Social History Tobacco Use Types [...] Info) Description 01/06/2025 9:00 AM EDT Telemedicine [facility] [address] [place] [phone] 01/13/2025 1:00 PM EDT Office Visit [facility] [address] [place] [phone] Wojciech Li MD [address] [place] [address] 03/22/2025 11:00 AM EDT Office Visit [facility] [address] [place] [phone] 04/07/2025 2:30 PM EDT Office Visit [facility] OPTOMETRY [address] [place] [address] Tyra Mayer, OD [address] [place], [place] [phone] documented as of this encounter Visit Diagnoses Not on filedocumented in this encounter Additional Health Concerns Assessment Noted Time PHQ-9 Depression Total Score: 9 09/14/20 24 1:06 PM EST documented as of this encounter Care Teams Billet Recorder Relationship Specialty Start Date End Date Wojciech Li MD [address] [place] [address] PCP - General Internal Medicine 04/12/24 documented as of this encounter
[2025-01-03 15:55] LABS: Bacterial Vaginosis PCR NEGATIVE (Negative); Candida Group PCR DETECTED (Not Detect); Candida glab krusei PCR NOT DETECTED (Not Detect); Trichomonas vaginalis PCR NOT DETECTED (Not Detect)
[2025-01-03 16:23] LABS: CT PCR NOT DETECTED (Not Detect.); NG PCR NOT DETECTED (Not Detect.)
== END 2025-01-03 13:08 | disposition home or self-care (01) ==
LOC: HO.HHCLNP 13:07
PROVIDERS: Visit Provider Nurse Practitioner Family
DX: R10.9 Unspecified abdominal pain (principal)
CPT/HCPCS: 81515; 87086; 87491; 87591

== ENCOUNTER 2025-03-26 19:56 | Emergency (ER) | payer MEDICAID, SELFPAY ==
--- NOTE | 2025-03-26 | ECG_ITS ---
Test Reason : DIZZINESS Blood Pressure : */* mmHG Vent. Rate : 76 BPM Atrial Rate : 76 BPM P-R Int : 130 ms QRS Dur : 82 ms QT Int : 402 ms P-R-T Axes : 46 64 27 degrees QTcB Int : 452 ms Normal sinus rhythm Normal ECG When compared with ECG of 19-Dec-2024 02:51, Questionable change in QRS axis Referred By: Generic ED Physician Electronically Signed By: KAMILLE ALVAREZ MD
[2025-03-26 20:13] VITALS: BP 148/80; PULSE 80; O2SAT 96
[2025-03-26 20:20] VITALS: BP 137/76; PULSE 80; RESP 18; TEMP 36.9; O2SAT 94; BMI 33.8
[2025-03-26 20:38] LABS: MANUAL DIFF FLAG NO
[2025-03-26 20:39] LABS: Basophils Percent Auto 0.3 % (0-2); Eosinophils Absolute Auto 0.2 X10*3/uL (0.0-0.4); Eosinophils Percent Auto 2.6 % (0-4); Hemoglobin 13.4 g/dl (12.0-16.0); Imm Gran Abs Auto 0.01 X10*3/uL (0.00-0.03); Imm Gran Pct Auto 0.2 % (0.0-0.4); Lymphocytes Absolute Auto 2.5 X10*3/uL (1.2-4.9); Lymphocytes Percent Auto 38.3 % (20-40); Mean Corpuscular HGB Conc 37.2 g/dl (31.0-35.0); Mean Corpuscular Hemoglobin 32.8 pg (27.0-33.0); Mean Platelet Volume 10.1 fL (9.4-12.3); Monocytes Absolute Auto 0.4 X10*3/uL (0.1-1.2); Monocytes Percent Auto 5.6 % (2-11); Neutrophils Absolute Auto 3.4 x10*3/uL (2.0-8.3); Platelet Count 247 X10*3/uL (160-400); Red Blood Count 4.09 X10*6/uL (4.20-5.50); Red Cell Distribution Width 12.7 % (11.0-16.0); White Blood Count 6.5 X10*3/uL (4.8-10.8)
--- OUTSIDE RECORDS SUMMARY | 2025-03-26 20:44 | XMS_ITS | Encounter Summary ---
Author Organization [employer] Address [address] [place] [address] Care Team Providers Care Helicopter Engineer Name Role Phone Wojciech Li MD Primary Care Provide r Encounter Details Date Type Department Care Team (Late st Contact Info) Description 03/22/2025 11:00 AM EDT Office Visit [facility] [address] [place] [address] Catalina Alex, NELI [address] [place] [address] Chronic midline low back pain without sciatica [...] this encounter Progress Notes * Catalina Alex, STEAM PRESS TENDER - 03/22/2025 11:00 AM EDT Subjective: Brandie Asif is a 54 y.o. female w/ PMH asthma, COPD, hypertension, IBS, OA, T2DM, depression, and bipolar disorder, who presents to the office for - Chronic Pain Clinic Group visits. Initial Group visit: 12/21/24 Group Topic: Plants & Gardening Chronic Pain History: Associated Diagnosis: chronic low back pain, s/p ALIF L4-L5 on 11/06/[address] Kaufman. Relevant Imaging: MRI Lumbar spine 10/2024, IMPRESSION: Central and right subarticular disc herniation L5-S1 likely encroaching right S1 nerve root. Consider calcium metabolic disorder/osteopenia versus osteoporosis Current pharm tx: oxycodone 5mg Q8H PRN. Medication: States taking medication as prescribed. Related [...] normal. Problem List Items Addressed This Visit Mental Health Long-term current use of opiate analgesic Overview Medication: oxycodone 5mg Q8H PRN Indication: lumbar disc herniation L5-S1, s/p ALIP L4-L5 Last MERCHANDISE FLOW TEAM MEMBER Agreement: 11/04/24 MERCHANDISE FLOW TEAM MEMBER Tier 2 Current Assessment & Plan Timeline: - 12/21/24: Initial Group visit - utox/pill count wnl - 03/22/25: Group - utox/pill count wnl Musculoskeletal and Injuries Chronic low back pain - Primary Current Assessment & Plan -Good engagement and participation with Group Medical Visit model -Encouraged multifactorial approach to pain control including pharm and non- pharm modalities -UTOX and Pill count as expected Relevant Orders POCT [facility]-14 Urine Drug Screen (Completed) Follow up: 1-3 months for Group Chronic Pain Clinic. Follow up as scheduled with PCP, sooner as needed. * Yusra Ledezma RN - 03/22/2025 11:00 AM EDT .[employer]ISE [employer]OW TEAM MEMBER telecommunication lines repairer: PDMP reviewed today. Last fill date: 03/07/25 (Oxycodone 5mg tid) count was (49), anticipated (38) to be remaining. .UTOX completed. Negative for AMP, BAR, BUP, BZO, LEIGHTON, FTY, MDMA, MET, MOP, MTD, OXY, PCP, TCA, THC. documented in this encounter Miscellaneous Notes * Assessment & Plan Note - NELI Sunshine - 03/22/2025 5:12 PM EDTAssociated Problem(s): Long-term current use of opiate analgesic Timeline: - 12/21/24: Initial Group visit - utox/pill count wnl - 03/22/25: Group - utox/pill count wnl * Assessment & Plan Note - NELI Sunshine - 03/22/2025 5:11 PM EDTAssociated Problem(s): Chronic low back pain -Good engagement and participation with Group Medical Visit model -Encouraged multifactorial approach to pain control including pharm and non- pharm modalities -UTOX and Pill count as expected documented in this encounter Plan of Treatment Upcoming Encounters Date Type Department Care Team (Late st Contact Info) Description 04/07/2025 2:30 PM EDT Office Visit [facility] [address] [place] [address] Tyra Mayer, OD [address] [place] [address] 04/08/2025 1:45 PM EDT Office Visit [facility] [address] [place] [address] Mahendra Loomis MD [address] [place] [address] 04/21/2025 10:00 AM EDT Office Visit [facility] [address] [place] [address] Wojciech Li MD [address] [place] [address] 05/17/2025 11:00 AM EDT Office Visit [facility] [address] [place] [address] documented as of this encounter Procedures Procedure Name Priority Date/Time Associated Diagnosis Comments POCT [place]-14 URINE DRUG SCREEN Routine 03/22/2025 11:50 AM EDT Chronic midline low back pain without sciatica documented in this encounter Results * POCT [place]-14 Urine Drug Screen (03/22/2025 11:50 AM EDT) THC Negative Cocaine Screen, Urine Negative Opiate Screen, Urine Negative Methamphetamine Screen Urine Negative Amphetamine Screen, Urine Negative Benzodiazepines Screen, Urine Negative Barbiturate Screen, Urine Negative Methadone Screen, Urine Negative Buprenophine Screen, Urine Negative TCA, Urine Negative MDMA Urine Negative ng/mL Oxycodone Screen, Urine Negative Phencyclidine (PCP), Urine Negative Propoxyphene, Urine Negative Fentanyl, Urine Negative Urine Urine specimen obtained by clean catch procedure / Unknown 03/22/2025 11:50 AM EDT Wojciech Carver MD POINT OF CARE TEST [...] documented as of this encounter Care Teams Helicopter Engineer Relationship Specialty Start Date End Date Wojciech Li MD [address] [place] [address] PCP - General Internal Medicine 04/12/24 documented as of this encounter
[2025-03-26 20:47] LABS: Partial Thromboplastin Time 37.7 SEC (26.0-36.8)
[2025-03-26 20:53] LABS: Alanine Aminotransferase 36 U/L (0-31); Albumin Level 4.4 g/dL (3.5-5.0); Alkaline Phosphatase 133 U/L (39-117); Anion Gap 13 (12-20); Aspartate Amino Transferase 23 U/L (5-31); Bilirubin Direct 0.1 mg/dL (0.0-0.5); Bilirubin Total 0.3 mg/dL (0.0-1.0); Blood Urea Nitrogen 16 mg/dL (9-16); Calcium 9.8 mg/dL (8.4-10.2); Carbon Dioxide 27 mmol/L (22-29); Chloride 105 mmol/L (96-108); Creatinine Clr Calc Pharmacy 85.9; Estimated Glomerular Filt Rate > 60; Glucose Random 167 mg/dL (60-115); Lipase 47 U/L (8-78); Potassium 3.8 mmol/L (3.3-5.1); Sodium 141 mmol/L (135-145); Total Protein 7.5 g/dL (6.5-8.0)
[2025-03-26 21:02] LABS: Troponin-I High Sensitivity < 2.7 ng/L (<3.5-17.0)
--- NOTE | 2025-03-26 21:22 | ED_ITS ---
HPI - General Adult General Chief complaint: Dizziness Stated complaint: dizzy pt says blood sugar is off Time Seen by Provider: 03/26/25 21:04 Source: patient Mode of arrival: ambulatory Limitations: no limitations History of Present Illness ED Provider: Dr. Dalia Joshi HPI narrative: Patient comes to the emergency room complaining of dizziness and nausea. Patient states that it started suddenly 1 hour prior to arrival, patient was at home. Patient describes dizziness at not feeling quite right. Patient denies room spinning, denies near syncopal episodes, denies any neurological deficits other than ?whole-body tingling . Then, patient checked her point of care glucose which was 183, check her blood pressure was in the 160s systolic. Patient became anxious, states that she started having palpitations, chest pressure which now resolved. Patient denies any syncopal or near syncopal episodes. Related Data Home Medications ?Medication ?Instructions ?Recorded ?Confirmed bupropion HCl 150 mg 24 hr tablet, 150 mg PO DAILY 10/06/20 05/23/24 extended release (Wellbutrin XL) cetirizine 10 mg tablet (Zyrtec) 10 mg PO DAILY 10/06/20 05/23/24 duloxetine 60 mg capsule,delayed 60 mg PO DAILY 10/06/20 05/23/24 release (Cymbalta) insulin glargine 100 unit/mL 26 unit subcut BEDTIME 10/06/20 05/23/24 subcutaneous solution (Lantus U-100 Insulin) mirtazapine 45 mg tablet 45 mg PO BEDTIME PRN Insomnia 10/06/20 05/23/24 montelukast 10 mg tablet 10 mg PO BEDTIME 10/06/20 05/23/24 (Singulair) prazosin 1 mg capsule 1 mg PO BEDTIME 10/06/20 05/23/24 ropinirole 1 mg tablet 1 mg PO BEDTIME 10/06/20 05/23/24 tiotropium bromide 18 mcg capsule 1 cap inhalation DAILY 10/06/20 05/23/24 with inhalation device (Spiriva with HandiHaler) fenofibrate micronized 134 mg 1 tab PO DAILY@1800 05/24/21 05/23/24 capsule fluticasone propionate 50 2 spray intranasal DAILY 05/24/21 05/23/24 mcg/actuation nasal spray,suspension albuterol sulfate 2.5 mg/3 mL 2.5 mg inhalation Q4H PRN wheezing 05/23/24 05/23/24 (0.083 %) solution for nebulization albuterol sulfate 90 mcg/actuation 2 puff inhalation Q4H PRN 05/23/24 05/23/24 aerosol inhaler (Ventolin HFA) Shortness Of Breath Or Wheezing baclofen 10 mg tablet 10 mg PO TID muscle spasm 05/23/24 05/23/24 clotrimazole 1 % topical cream 1 appl topical Q12H PRN Rash 05/23/24 05/23/24 diclofenac sodium 1 % topical gel 2 g topical QID PRN pain 05/23/24 05/23/24 dulaglutide 1.5 mg/0.5 mL 1.5 mg subcut TH@0900 05/23/24 05/23/24 subcutaneous pen injector (Trulicity) gabapentin 100 mg capsule 100 mg PO TID 05/23/24 05/23/24 lisinopril 20 mg tablet 20 mg PO DAILY 05/23/24 05/23/24 propranolol 40 mg tablet 40 mg PO BID 05/23/24 05/23/24 pseudoephedrine HCl 30 mg tablet 30 mg PO Q4H PRN congestion 05/23/24 05/23/24 (Sudogest) trazodone 50 mg tablet 50 mg PO BEDTIME PRN Insomnia 05/23/24 05/23/24 Previous Rx's ?Medication ?Instructions ?Recorded ondansetron 4 mg disintegrating 4 mg PO Q8H PRN nausea and 05/16/24 tablet vomiting #7 tabs famotidine 20 mg tablet 20 mg PO DAILY #30 tabs 05/24/24 hydrocodone 5 mg-acetaminophen 325 1 tab PO Q4-6H PRN pain #30 tabs 06/23/24 mg tablet hrimegsiko-vcgdhyrqkdghy-jasdqndf 1 tab PO Q6H PRN haeadace #20 tabs 12/05/24 50 mg-325 mg-40 mg tablet sumatriptan succinate 50 mg tablet 50 mg PO Q2H PRN migraine headache 12/05/24 (Imitrex) #10 tabs cyclobenzaprine 10 mg tablet 10 mg PO TID PRN muscle spasm #10 12/19/24 tabs tramadol 50 mg tablet 50 mg PO BID PRN pain #7 tabs 12/19/24 cefuroxime axetil 250 mg tablet 250 mg PO BID #9 tabs 12/29/24 cyclobenzaprine 10 mg tablet 10 mg PO TID PRN muscle spasm #10 12/29/24 tabs ketorolac 10 mg tablet 10 mg PO TID PRN pain 5 days #12 12/29/24 tabs Allergies Allergy/AdvReac Type Severity Reaction Status Date / Time ENVIRONMENTAL Allergy Mild Dry Eye Uncoded 03/26/25 20:22 Review of Systems 2 Review of Systems: Constitutional : No Weight loss, No Fever, No Chills, No Night Sweats, No Fatigue, No Malaise ENT/Mouth : No Hearing loss, No Ear Pain, No Nasal Congestion, No Sinus Pain, No Hoarseness, No sore throat, No Rhinorrhea, No Swallowing Difficulty Eyes: No Eye Pain, No Swelling, No Redness, No Foreign Body, No Discharge, No Vision Changes Cardiovascular : No Chest Pain, No SOB, No Dyspnea on Exertion, No Orthopnea, No Edema, No Palpitations Respiratory : No Cough, No Sputum, No Wheezing, No Smoke Exposure, No Dyspnea Gastrointestinal : No Nausea, No Vomiting, No Diarrhea, No Constipation, No abdominal Pain, No Hematochezia, No Melena Genitourinary : no irregular bleeding, No Dysuria, No Urinary Frequency, No Hematuria, No Urinary Incontinence, No Urgency, No Flank Pain, No Urinary Flow Changes, No Hesitancy Musculoskeletal : No joint pain, No Myalgias, No Joint Swelling Skin : No Skin Lesions, No rash Neuro : No Weakness, No Numbness, complaining of a few sec of whole-body tingling which 12 resolved, No Loss of Consciousness, complaining of few minutes of dizziness, no headache Psych : Complaining of anxiety, No Depression, No SI/HI/AH/VH, No Social Issues, Heme/Lymph: No Bruising, No Bleeding,No Lymphadenopathy Endocrine : No Polyuria, No Polydipsia, No Temperature Intolerance [facility] Past Medical History Medical History Hemiplegic migraine HLD (hyperlipidemia) HTN (hypertension) Migraines Sciatica Asthma COPD (chronic obstructive pulmonary disease) Diabetes Surgical History Hx of colonoscopy History of esophagogastroduodenoscopy (EGD) Hx laparoscopic cholecystectomy History of ear surgery H/O: hysterectomy Family History Family History Sister Migraine Social History Social History Household Members: None Housing: Apartment Do you presently have visiting nurse or other home services: No Alcohol intake: never Patient Tobacco Use Status: Current everyday Tobacco user Tobacco use type: Cigarette Cigarette Packs Per Day: 0.4 Cigarettes Per Day: 7 Years Smoked: 20 Second Hand Smoke Exposure: Yes Advance Directives: Yes Advance Directives on File: Yes Advance Directives Date on File: 05/25/24 service: No Current occupational status: other Physical Exam ED Vital Signs: Vital Signs - 24 hr 03/26/25 20:20 03/26/25 21:28 03/26/25 21:30 Temperature 98.5 F Pulse Rate 80 71 83 Respiratory Rate 18 Blood Pressure 137/76 125/78 133/82 Pulse Oximetry 94 Oxygen Delivery Method Room Air 03/26/25 21:31 Temperature Pulse Rate 86 Respiratory Rate Blood Pressure 133/82 Pulse Oximetry Oxygen Delivery Method BMI result Body Mass Index 33.8 Const Other: Appearance: Alert. Oriented X3. No acute distress. Eyes: Pupils equal, round and reactive to light. ENT: Pharynx normal. Neck: Normal inspection. Neck supple. No lymph nodes noted. No crepitus CVS: Normal heart rate and rhythm. Pulses normal. Normal S1 and S2 Respiratory: No respiratory distress. Breath sounds normal. No Wheezing. No rales Abdomen: Soft and nontender. No rigidity. No distention. Skin: Skin warm and dry. Normal skin color. Normal skin turgor. Extremities: No lower extremity edema. No Lacerations. No Rash Neuro: Oriented X 3. No motor deficit. No sensory deficit. Moving all extremities. No slurred speech. CN 2 through 12 grossly intact Psych: calm, cooperative, normal affect NIH Stroke Scale Internal: Initial- Upon Arrival Level of Consciousness: Alert Level of Consciousness Questions: Answers both questions correctly Level of Consciousness Commands: Performs both tasks correctly Best Gaze: Normal Visual: No visual loss Facial Palsy: Normal Motor Arm (Right): No drift Motor Arm (Left): No drift Motor Leg (Right): No drift Motor Leg (Left): No drift Limb Ataxia: Absent Sensory: Normal Best Language: No aphasia Dysarthia: Normal Extinction and Inattention: No abnormality Score: 0 Course Course Course Narrative: Patient came in complaining of whole-body tingling, not feeling quite right. Anxiety. Denies any neurological deficits All symptoms have resolved at this time. All of patient's labs pending Medical Decision Making Medical Decision Making [facility] Narrative: My interpretation of EKG: Normal sinus rhythm, heart rate 76, no ST segment depression or elevation, no T-wave inversion, QTC 452 My interpretation of labs: No significant abnormality in patient's hematology and chemistry, normal LFTs, normal troponin, lipase 47 Orthostatic vitals are negative. Patient remains asymptomatic. Most likely, patient had anxiety. Differential Diagnosis Differential Diagnoses: The differential diagnosis associated with the presentation includes (Near-syncope, orthostatic hypotension, anxiety) Lab Data [facility] Lab Attestation statement: I reviewed the patient's lab results. 03/26/25 20:34 03/26/25 20:34 Labs: Lab Results 03/26/25 Range/Units 20:34 WBC 6.5 (4.8-10.8) X10*3/uL RBC 4.09 L (4.20-5.50) X10*6/uL Hgb 13.4 (12.0-16.0) g/dl Hct 36.0 L (37.0-47.0) % MCV 88.0 (80.0-98.0) fL MCH 32.8 (27.0-33.0) pg MCHC 37.2 H (31.0-35.0) g/dl RDW 12.7 (11.0-16.0) % Plt Count 247 (160-400) X10*3/uL MPV 10.1 (9.4-12.3) fL Immature Gran % (Auto) 0.2 (0.0-0.4) % Neut % (Auto) 53.0 (45-73) % Lymph % (Auto) 38.3 (20-40) % [place] % (Auto) 5.6 (2-11) % Eos % (Auto) 2.6 (0-4) % Baso % (Auto) 0.3 (0-2) % Lymph # (Auto) 2.5 (1.2-4.9) X10*3/uL [place] # (Auto) 0.4 (0.1-1.2) X10*3/uL Eos # (Auto) 0.2 (0.0-0.4) X10*3/uL Baso # (Auto) 0.0 (0.0-0.2) X10*3/uL Abs Immat Gran (auto) 0.01 (0.00-0.03) X10*3/uL Absolute Neuts (auto) 3.4 (2.0-8.3) x10*3/uL Absolute Nucleated RBC 0.000 (0.0-0.012) X10*3/uL Nucleated RBC % (auto) 0.0 (0.0-0.2) /100WBC APTT 37.7 H (26.0-36.8) SEC Sodium 141 (135-145) mmol/L Potassium 3.8 (3.3-5.1) mmol/L Chloride 105 (96-108) mmol/L Carbon Dioxide 27 (22-29) mmol/L Anion Gap 13 (12-20) BUN 16 (9-16) mg/dL Creatinine 0.81 (0.5-1.4) mg/dL Estim Creat Clear Calc 85.9 Estimated GFR > 60 Random Glucose 167 H (60-115) mg/dL Calcium 9.8 D (8.4-10.2) mg/dL Total Bilirubin 0.3 (0.0-1.0) mg/dL Direct Bilirubin 0.1 (0.0-0.5) mg/dL AST 23 (5-31) U/L ALT 36 H (0-31) U/L Alkaline Phosphatase 133 H (39-117) U/L Troponin I High Sens < 2.7 (<3.5-17.0) ng/L Total Protein 7.5 (6.5-8.0) g/dL Albumin 4.4 (3.5-5.0) g/dL Lipase 47 (8-78) U/L Independent Interpretation I performed an independent interpretation of an: EKG Discharge Plan Discharge Clinical Impression: Dizziness Patient Disposition: Home, Self-Care Instructions: Dizziness (ED) Additional Instructions: Please follow-up with your primary care physician tomorrow. If you have any worsening or new symptoms, please return to the emergency room or call 911 Prescriptions: No Action ropinirole 1 mg Tablet 1 mg PO BEDTIME insulin glargine [Lantus U-100 Insulin] 100 unit/mL Solution 26 unit SUBCUT BEDTIME cetirizine [Zyrtec] 10 mg Tablet 10 mg PO DAILY prazosin 1 mg Capsule 1 mg PO BEDTIME mirtazapine 45 mg Tablet 45 mg PO BEDTIME PRN (Reason: Insomnia) montelukast [Singulair] 10 mg Tablet 10 mg PO BEDTIME bupropion HCl [Wellbutrin XL] 150 mg Tablet Extended Release 24 Hr 150 mg PO DAILY tiotropium bromide [Spiriva with HandiHaler] 18 mcg Capsule, W/Inhalation Device 1 cap INHALATION DAILY duloxetine [Cymbalta] 60 mg Capsule,Delayed Release(Dr/Ec) 60 mg PO DAILY fenofibrate micronized 134 mg capsule 1 tab PO DAILY@1800 fluticasone propionate 50 mcg/actuation spray,suspension 2 spray intranasal DAILY albuterol sulfate 2.5 mg /3 mL (0.083 %) solution for nebulization 2.5 mg inhalation Q4H PRN (Reason: wheezing) trazodone 50 mg tablet 50 mg PO BEDTIME PRN (Reason: Insomnia) lisinopril 20 mg tablet 20 mg PO DAILY propranolol 40 mg tablet 40 mg PO BID baclofen 10 mg tablet 10 mg PO TID pseudoephedrine HCl [Sudogest] 30 mg tablet 30 mg PO Q4H PRN (Reason: congestion) gabapentin 100 mg capsule 100 mg PO TID albuterol sulfate [Ventolin HFA] 90 mcg/actuation HFA aerosol inhaler 2 puff INHALATION Q4H PRN (Reason: Shortness Of Breath Or Wheezing) clotrimazole 1 % cream 1 appl topical Q12H PRN (Reason: Rash) diclofenac sodium 1 % gel 2 g topical QID PRN (Reason: pain) Trulicity 1.5 mg/0.5 mL pen injector 1.5 mg subcut TH@0900 famotidine 20 mg Tablet 20 mg PO DAILY Qty: 30 0RF tramadol 50 mg tablet 50 mg PO BID PRN (Reason: pain) Qty: 7 0RF cyclobenzaprine 10 mg tablet 10 mg PO TID PRN (Reason: muscle spasm) Qty: 10 0RF ketorolac 10 mg tablet 10 mg PO TID PRN (Reason: pain) 5 Days Qty: 12 0RF cefuroxime axetil 250 mg tablet 250 mg PO BID Qty: 9 0RF cyclobenzaprine 10 mg tablet 10 mg PO TID PRN (Reason: muscle spasm) Qty: 10 0RF ondansetron 4 mg tablet,disintegrating 4 mg PO Q8H PRN (Reason: nausea and vomiting) Qty: 7 0RF sumatriptan succinate [Imitrex] 50 mg tablet 50 mg PO Q2H PRN (Reason: migraine headache) Qty: 10 0RF Rx Instructions: do not exceed 2 doses per 24 hrs jkbovcfeaq-uufgwdcrxwjly-ycpa 50-325-40 mg tablet 1 tab PO Q6H PRN (Reason: haeadace) Qty: 20 0RF hydrocodone-acetaminophen 5-325 mg tablet 1 tab PO Q4-6H PRN (Reason: pain) Qty: 30 0RF Rx Instructions: Partial Fill upon patient request. Print Language: Vietnamese
[2025-03-26 21:28] VITALS: BP 125/78; PULSE 71
[2025-03-26 21:30] VITALS: BP 133/82; PULSE 83
[2025-03-26 21:31] VITALS: BP 133/82; PULSE 86
[2025-03-26 22:10] VITALS: BP 126/80; PULSE 72; RESP 16; TEMP 36.8; O2SAT 97
== END 2025-03-26 22:10 | disposition home or self-care (01) ==
PROVIDERS: Emergency Provider Emergency Medicine; PCP Internal Medicine
DX: R42 Dizziness and giddiness (principal); R29.700 NIHSS score 0; E11.9 Type 2 diabetes mellitus without complications; I10 Essential (primary) hypertension; E78.5 Hyperlipidemia, unspecified; J45.909 Unspecified asthma, uncomplicated; F17.210 Nicotine dependence, cigarettes, uncomplicated; Z79.4 Long term (current) use of insulin; Z79.899 Other long term (current) drug therapy; Z79.85 Long-term (current) use of injectable non-insulin antidiabetic drugs
CPT/HCPCS: 36415; 80053; 82248; 83690; 84484; 85025; 85730; 93005; 99283

== ENCOUNTER → 2025-03-26 20:31 | Outpatient (BNV) | payer MEDICAID, SELFPAY | PROVIDERS: Emergency Provider Emergency Medicine; PCP Internal Medicine; Visit Provider Internal Medicine Cardiovascular Disease | DX: R42 Dizziness and giddiness (principal) | CPT/HCPCS: 93010 ==

== ENCOUNTER 2025-04-02 12:23 | Emergency (ER) | payer MEDICAID, SELFPAY ==
[2025-04-02] VITALS (9 sets, daily range): BP systolic 144–174; BP diastolic 73–95; PULSE 70–90; RESP 14–18; TEMP 36.1–36.9; O2SAT 97–100; BMI 27.1
--- NOTE | 2025-04-02 | ECG_ITS ---
Test Reason : SYNCOPE Blood Pressure : */* mmHG Vent. Rate : 85 BPM Atrial Rate : 85 BPM P-R Int : 128 ms QRS Dur : 78 ms QT Int : 374 ms P-R-T Axes : 42 69 50 degrees QTcB Int : 445 ms Normal sinus rhythm Normal ECG When compared with ECG of 26-Mar-2025 20:31, No significant change was found Referred By: Generic ED Physician Electronically Signed By: RIVAS GARCIA
--- NOTE | ~2025-04-02 | XR_ITS ---
CLINICAL HISTORY: fall, left lower back pain 3 views lumbar spine Comparison: CR/SR - XR LUMBAR SPINE 2-3V - 03/16/24 15:41 EDT Findings: Normal vertebral body alignment. No acute fractures or dislocation. No significant vertebral body compression deformity. Mild multilevel disc space narrowing. Redemonstration of a L4-5 disc spacer with stable adjacent endplate irregularities and sclerosis. Moderate facet arthrosis at L5-S1. Prominent aortic calcifications. Multiple clips project over the right upper and left lower quadrants. IMPRESSION: No acute fracture in the lumbar spine. This document has been electronically signed by: Luz Mckinley DO on 04/02/2025 17:15:53
--- NOTE | ~2025-04-02 | CT_ITS ---
CLINICAL HISTORY: L flank pain, wbc clumps in urine CT abdomen and pelvis with contrast Comparison: 12/29/2024 Findings: The lung bases are clear. The liver, spleen, adrenal glands and pancreas demonstrate no acute process. The gallbladder is absent. Kidneys demonstrate neither obstruction or perfusion abnormality. The bladder is decompressed. No bowel obstruction or free air. 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 No acute osseous finding. Impression: No evidence of pyelonephritis by CT. No obstructive uropathy. Severe atherosclerotic disease involving the lower aorta and pelvic vasculature as detailed above. This document has been electronically signed by: Cricket Domínguez MD on 04/02/2025 18:38:08
--- NOTE | ~2025-04-02 | CT_ITS ---
CLINICAL HISTORY: syncope in WR CT CERVICAL SPINE WITHOUT CONTRAST Comparison: CT/SR - CT ANGIO HEAD NECK - 12/05/24 02:57 EST Findings: Normal vertebral body alignment. Ukjm-hv-yvrskewu disc degenerative changes especially at C5-6. Mild facet degenerative changes. No acute fractures or dislocations. Please see the separate report for the CT head/brain. No cervical fluid collections or masses. No consolidation or effusion at the lung apices. IMPRESSION: No acute fracture in the cervical spine. This document has been electronically signed by: Luz Mckinley DO on 04/02/2025 15:59:31
--- NOTE | ~2025-04-02 | CT_ITS ---
CLINICAL HISTORY: syncope in WR CT HEAD WITHOUT CONTRAST Comparison: CT/SR - CT ANGIO HEAD NECK - 12/05/24 02:57 EST Findings: No acute intracranial hemorrhage, extra-axial fluid collection, hydrocephalus or midline shift. Mild parenchymal atrophy. No significant white matter disease. There is no sinus or mastoid fluid. Incomplete pneumatization of the left mastoid air cells. Visualized orbits: No acute abnormalities. There is no acute fracture. IMPRESSION: 1. No acute intracranial hemorrhage. This document has been electronically signed by: Luz Mckinley DO on 04/02/2025 16:02:08
[2025-04-02 12:43] LABS: MANUAL DIFF FLAG NO
[2025-04-02 12:44] LABS: Basophils Percent Auto 0.3 % (0-2); Eosinophils Absolute Auto 0.1 X10*3/uL (0.0-0.4); Eosinophils Percent Auto 1.9 % (0-4); Hematocrit 38.5 % (37.0-47.0); Hemoglobin 14.1 g/dl (12.0-16.0); Imm Gran Abs Auto 0.03 X10*3/uL (0.00-0.03); Imm Gran Pct Auto 0.4 % (0.0-0.4); Lymphocytes Absolute Auto 2.4 X10*3/uL (1.2-4.9); Mean Corpuscular HGB Conc 36.6 g/dl (31.0-35.0); Mean Corpuscular Hemoglobin 32.3 pg (27.0-33.0); Mean Corpuscular Volume 88.1 fL (80.0-98.0); Monocytes Absolute Auto 0.5 X10*3/uL (0.1-1.2); Monocytes Percent Auto 6.7 % (2-11); Neutrophils Absolute Auto 3.9 x10*3/uL (2.0-8.3); Neutrophils Percent Auto 55.7 % (45-73); Platelet Count 277 X10*3/uL (160-400); Red Blood Count 4.37 X10*6/uL (4.20-5.50); Red Cell Distribution Width 12.6 % (11.0-16.0); White Blood Count 6.9 X10*3/uL (4.8-10.8)
--- NOTE | 2025-04-02 12:54 | PC.NURSE ---
Patient presents to the ED as a witnessed syncopal episode while attempting to check into the waiting room. Episode not witnessed by this technical proposal writer but witnessed by bystanders in the waiting room. Although witnessed by multiple bystanders, no PMH was obtained d/t bystanders not knowing patient as patient drove herself to the ED by private car. When assessing patient, patient was found lying on back/towards the right side. Spine immobilization performed by triage provider. Vital signs obtained/WNL. Patient unable to answer questions/follow commands appropriately. Minimally responsive to physical stimuli. C-collar placed. Patient placed on backboard/transferred to stretcher and brought to ED23. Patient placed on telemetry displaying NSR. VSS aside from being hypertensive. On RA w/o difficulty - no airway compromise noted. No sob/wob noted. Respirations even/unlabored. 18GIV placed in the right AC - labs obtained/sent to lab. EKG performed by tech. POC obtained displaying 129mg/dL. No trauma noted throughout during assessment. certified court interpreter then utilized. Patient now able to answer questions/following commands appropriately. Patient able to state self, year, location and situation. Patient verbalizes she presented to the ED after she had been feeling dizzy/lightheaded/having difficulty ambulating for the past few days. Patient then verbalizing increased sob and generalized nonradiating chest pain s/p event. EKG/labs already obtained. Patient pending CT scans to be completed at this time. Plan of care ongoing. Call mathias placed within reach.
[2025-04-02 12:58] LABS: Alanine Aminotransferase 29 U/L (0-31); Albumin Level 4.5 g/dL (3.5-5.0); Alkaline Phosphatase 127 U/L (39-117); Anion Gap 10 (12-20); Aspartate Amino Transferase 22 U/L (5-31); Bilirubin Total 0.4 mg/dL (0.0-1.0); Blood Urea Nitrogen 13 mg/dL (9-16); Calcium 9.5 mg/dL (8.4-10.2); Carbon Dioxide 28 mmol/L (22-29); Chloride 105 mmol/L (96-108); Creatinine Clr Calc Pharmacy 81.5; Estimated Glomerular Filt Rate > 60; Glucose Random 132 mg/dL (60-115); Sodium 139 mmol/L (135-145); Total Protein 7.5 g/dL (6.5-8.0)
[2025-04-02 12:59] LABS: Lactic Acid 1.2 mmol/L (0.5-2.0)
[2025-04-02 13:05] LABS: Troponin-I High Sensitivity < 2.7 ng/L (<3.5-17.0)
[2025-04-02 13:08] LABS: D Dimer High Sensitivity 160 NG/ML
--- NOTE | 2025-04-02 13:15 | PC.NURSE ---
This RN was in the triage room, when approx 1220 a commotion was heard from the bowling or skating front desk clerk area. Looking out at the waiting area, patient was witnessed actively falling by this RN but unable to witness if a possible head strike had occurred. Patient unconscious upon initial assessment.Unable to answer question follow commands appropriately. C spine immobilization maintained by assisting RN, C collar was put in place and vitals were collected. Witnesses in waiting area unsure if patient hit her head, no trauma noted upon assessment. Patient was safely backboarded and transferred to stretcher, stretcher was padded for possible seizure activity. Eyes PERRLA, patient regained consciousness after tactile stimulation. Patient A&O x 3 after event and reported c/o chest pain dizziness and lightheadedness, EKG performed NSR. Vitals stable aside from HTN. IV access established, seen by ED provider plan of care on going.
[2025-04-02 13:19] LABS: TSH reflex Free T4 0.64 uIU/mL (0.32-4.0)
[2025-04-02 13:24] LABS: Influenza A PCR NEGATIVE (Negative); Influenza B PCR NEGATIVE (Negative); Resp Syncy Virus RNA Qual PCR NEGATIVE (Negative); SARS COV2 PCR INHOUSE NEGATIVE (Negative)
--- NOTE | 2025-04-02 13:25 | ED.FALL ---
HPI - Fall General Chief Complaint: Fall Stated Complaint: Fall Time Seen by Provider: 04/02/25 12:27 Source: patient and front counter clerk ([email or web address]) Mode of arrival: ambulatory Limitations: language barrier (kiswahili) History of Present Illness ED Provider: CIARA RIDDLE PA-C HPI Narrative: 54 year old male with pmhx significant for asthma/COPD, hypertension, diabetes, chronic pain, arthritis, complex migraine, GERD presents to the ED today following a witnessed syncopal episode while in the ED waiting room today. Patient is awake and alert on my initial interview. skid man utilized to communicate. Patient reports recent bouts of dizziness x weeks. Reports feeling light headed as if I'm going to go . She states she cannot elaborate on how the dizziness feels however denies any associated vision changes with these episodes. She reports waking up feeling fine this morning. Reports episode of dizziness while standing in her kitchen washing dishes this morning which lasted for a few minutes before resolving. She then had someone drive her to the ED. She reports being evaluated for this multiple times. She was advised by her PCP to follow up with her system consultant. She was able to get out of the vehicle on arrival to the ED and ambulate inside without difficulty. Upon arrival to registration desk, she then had a syncopal episode witnessed by staff. staff reports patient fell backward. It is unclear if she struck her head. Triage provider evaluated her at that time. She was noted to be minimally responsive to verbal stimuli. she was placed in a cervical collar and transported to main ED bed where her vitals were stable aside from hypertensive. Alert, oriented x3 and answering questions on my arrival. At present, she endorses all over pain however it appears that her main concern post-fall is left sided lower back pain. Pain radiates down the outer aspect of her left thigh. She denies numbness/weakness/tingling down the LLE. She denies dysuria, hematuria. Denies hx of IVDU or spinal surgery. She also endorses nonradiating substernal chest pain that began after syncopal episode. She denies any dizziness at present. Denies fever, chills, sob, cough, hemoptysis, palpitations, LE pain/swelling, N/V/D, abd pain. Denies recent travel or long car rides. No hx of OCP or hormone use. Denies recent illness, surgery, trauma. Related Data Home Medications ?Medication ?Instructions ?Recorded ?Confirmed bupropion HCl 150 mg 24 hr tablet, 150 mg PO DAILY 10/06/20 05/23/24 extended release (Wellbutrin XL) cetirizine 10 mg tablet (Zyrtec) 10 mg PO DAILY 10/06/20 05/23/24 duloxetine 60 mg capsule,delayed 60 mg PO DAILY 10/06/20 05/23/24 release (Cymbalta) insulin glargine 100 unit/mL 26 unit subcut BEDTIME 10/06/20 05/23/24 subcutaneous solution (Lantus U-100 Insulin) mirtazapine 45 mg tablet 45 mg PO BEDTIME PRN Insomnia 10/06/20 05/23/24 montelukast 10 mg tablet 10 mg PO BEDTIME 10/06/20 05/23/24 (Singulair) prazosin 1 mg capsule 1 mg PO BEDTIME 10/06/20 05/23/24 ropinirole 1 mg tablet 1 mg PO BEDTIME 10/06/20 05/23/24 tiotropium bromide 18 mcg capsule 1 cap inhalation DAILY 10/06/20 05/23/24 with inhalation device (Spiriva with HandiHaler) fenofibrate micronized 134 mg 1 tab PO DAILY@1800 05/24/21 05/23/24 capsule fluticasone propionate 50 2 spray intranasal DAILY 05/24/21 05/23/24 mcg/actuation nasal spray,suspension albuterol sulfate 2.5 mg/3 mL 2.5 mg inhalation Q4H PRN wheezing 05/23/24 05/23/24 (0.083 %) solution for nebulization albuterol sulfate 90 mcg/actuation 2 puff inhalation Q4H PRN 05/23/24 05/23/24 aerosol inhaler (Ventolin HFA) Shortness Of Breath Or Wheezing baclofen 10 mg tablet 10 mg PO TID muscle spasm 05/23/24 05/23/24 clotrimazole 1 % topical cream 1 appl topical Q12H PRN Rash 05/23/24 05/23/24 diclofenac sodium 1 % topical gel 2 g topical QID PRN pain 05/23/24 05/23/24 dulaglutide 1.5 mg/0.5 mL 1.5 mg subcut TH@0900 05/23/24 05/23/24 subcutaneous pen injector (Trulicity) gabapentin 100 mg capsule 100 mg PO TID 05/23/24 05/23/24 lisinopril 20 mg tablet 20 mg PO DAILY 05/23/24 05/23/24 propranolol 40 mg tablet 40 mg PO BID 05/23/24 05/23/24 pseudoephedrine HCl 30 mg tablet 30 mg PO Q4H PRN congestion 05/23/24 05/23/24 (Sudogest) trazodone 50 mg tablet 50 mg PO BEDTIME PRN Insomnia 05/23/24 05/23/24 Previous Rx's ?Medication ?Instructions ?Recorded ondansetron 4 mg disintegrating 4 mg PO Q8H PRN nausea and 05/16/24 tablet vomiting #7 tabs famotidine 20 mg tablet 20 mg PO DAILY #30 tabs 05/24/24 hydrocodone 5 mg-acetaminophen 325 1 tab PO Q4-6H PRN pain #30 tabs 06/23/24 mg tablet xcitoaumlj-bfqtwzcjwojjm-eyacqaxx 1 tab PO Q6H PRN haeadace #20 tabs 12/05/24 50 mg-325 mg-40 mg tablet sumatriptan succinate 50 mg tablet 50 mg PO Q2H PRN migraine headache 12/05/24 (Imitrex) #10 tabs cyclobenzaprine 10 mg tablet 10 mg PO TID PRN muscle spasm #10 12/19/24 tabs tramadol 50 mg tablet 50 mg PO BID PRN pain #7 tabs 12/19/24 cefuroxime axetil 250 mg tablet 250 mg PO BID #9 tabs 12/29/24 cyclobenzaprine 10 mg tablet 10 mg PO TID PRN muscle spasm #10 12/29/24 tabs ketorolac 10 mg tablet 10 mg PO TID PRN pain 5 days #12 12/29/24 tabs cefuroxime axetil 250 mg tablet 250 mg PO BID 7 days #14 tabs 04/02/25 Allergies Allergy/AdvReac Type Severity Reaction Status Date / Time ENVIRONMENTAL Allergy Mild Dry Eye Uncoded 04/02/25 12:45 Review of Systems Review of Systems: Constitutional: No fever, chills, fatigue, night sweats, weight changes ENT/Mouth: No ear pain, hearing loss, nasal congestion, sinus pain, rhinorrhea, sore throat Eyes: No eye pain, swelling, redness, vision changes, discharge Cardio: No palpitations, SHEN, orthopnea, peripheral edema, +chest pain Pulm: No SOB, cough, sputum, wheezing, dyspnea, hemoptysis GI: No nausea, vomiting, hematemesis, abdominal pain, diarrhea, constipation, hematochezia, melena : No irregular bleeding, dysuria, frequency, urgency, hesitancy, hematuria, flank pain, urinary flow changes, urinary incontinence or retention MSK: No neck pain, joint pain, +myalgias, +L lower back pain Skin: No lesions, rashes Neuro: No weakness, numbness, paresthesias, LOC, dizziness, headache Psych: No anxiety/panic, depression, SI/HI, AH/VH All other systems reviewed and are negative. [facility] Past Medical History Attestation statement: The following information was validated with the patient. Source: old records reviewed and nursing notes reviewed Medical History Hemiplegic migraine HLD (hyperlipidemia) HTN (hypertension) Migraines Sciatica Asthma COPD (chronic obstructive pulmonary disease) Diabetes Surgical History Hx of colonoscopy History of esophagogastroduodenoscopy (EGD) Hx laparoscopic cholecystectomy History of ear surgery H/O: hysterectomy Family History Family History Sister Migraine Social History Social History Household Members: None Housing: Apartment Do you presently have visiting nurse or other home services: No Alcohol intake: never Patient Tobacco Use Status: Current everyday Tobacco user Tobacco use type: Cigarette Cigarette Packs Per Day: 0.4 Cigarettes Per Day: 7 Years Smoked: 20 Second Hand Smoke Exposure: Yes Advance Directives Date on File: 05/25/24 service: No Current occupational status: other Physical Exam Vital Signs: Vital Signs: Last Vital Signs Temp 97.9 F 04/02/25 19:40 Pulse 89 04/02/25 19:40 Resp 16 04/02/25 19:40 BP 158/83 H 04/02/25 19:40 Pulse Ox 98 06/07/25 19:40 O2 Del Method Room Air 04/02/25 19:40 BMI result Body Mass Index 27.1 hypertensive, vitals are otherwise wnl General: In no acute distress. Skin: Warm, dry, intact. No rashes or lesions. Head: Normocephalic, atraumatic. no battles sign. no raccoon eyes. EENT: Hearing is intact b/l. Conjunctiva clear. PERRLA. EOM intact. Moist mucous membranes.? Neck: in cervical collar. Cardiac: Chest wall symmetric. RRR. no reproducible tenderness to palpation. no flail chest. Lungs: Normal respiratory effort without accessory muscle use. CTA bilaterally. No rales, rhonchi, or wheezes.? Abdomen: Soft, non-tender, non-distended. No rebound tenderness or guarding. Positive BS x4. Back: No midline spinous or paraspinal tenderness. No step off deformity. Ext: Upper and lower extremities atraumatic, without tenderness, deformity, swelling or erythema. Full ROM throughout. no pitting edema. no calf tenderness b/l. Neuro: AOx3. Normal speech. NIH 0. normal finger to nose, heel to [place], ambulating with steady gait. Strength 5/5 intact throughout. No saddle anesthesia. Sensation intact to light touch. NV intact distally. Course Course Course Narrative: 1426 -- cbc without leukocytosis or left shift. h&h stable, no anemia. chemistry without acute electrolyte abnormality requiring intervention. liver function at baseline. lactic WNL - unlikely seizure. troponin undetectable - will repeat for delta. ekg showing NSR without acute ischemic changes or st elevations. TSH wnl. negative covid, flu, rsv. 1919 -- ddimer 160 - cut off 230. PE unlikely. she is not tachycardic or hypoxic. no significant risk factors other than age. delta troponin flat. ACS unlikely. CT head/brain unremarkable. No intracranial hemorrhage, mass. No skull fracture. CT cervical spine without fracture or subluxation. X-ray lumbar spine without compression fracture. CT abdomen/pelvis without obstructing renal stone. incidental finding of atherosclerotic disease of the lower aorta. > Patient treated with Tylenol, Toradol and IV fluids > she is ambulating with steady gait to and from the bathroom > work up is unremarkable. advised to follow up without patient providers. vascular referral provded to follow up regarding incidental CT findings. she verbalizes understanding and will be contacting their office on Friday for follow up. she has a ride home today. Patient has remained stable throughout ED visit today. Discussed worrisome signs and symptoms and when to return to the ED. All questions answered at this time. Patient is agreeable with disposition and stable for discharge. Medications Administered Discontinued Medications Generic Name Dose Route Start Last Admin Trade Name Freq PRN Reason Stop Dose Admin Cefuroxime Axetil 250 mg 04/02/25 19:21 04/02/25 19:28 Cefuroxime Axetil 250 Mg Tablet PO 04/02/25 19:22 250 mg ONCE ONE Administration Sodium Chloride 1,000 mls @ 999 mls/hr 04/02/25 15:15 04/02/25 17:14 Ns IV 04/02/25 16:15 Infused .Q1H1M KORY Infusion Acetaminophen 1,000 mg in 100 mls @ 400 mls/hr 04/02/25 15:13 04/02/25 15:49 Ofirmev IV 04/02/25 15:27 Infused ONCE ONE Infusion Iohexol 100 ml 04/02/25 17:22 04/02/25 17:22 Iohexol 350 Mg/Ml 100 Ml Infus..Btl IV 04/02/25 17:23 85 ml ONCE ONE Administration Ketorolac Tromethamine 30 mg 04/02/25 17:03 04/02/25 17:14 Ketorolac Tromethamine 30 Mg/Ml Vial IVPUSH 04/02/25 17:04 30 mg ONCE ONE Administration Medical Decision Making Medical Decision Making [facility] Narrative: 54 year old male with pmhx significant for asthma/COPD, hypertension, diabetes, chronic pain, arthritis, complex migraine, GERD presents to the ED today following a witnessed syncopal episode while in the ED waiting room today. her vitals are stable. she is in no acute distress. her exam is nonfocal and cerebellum is intact. Plan: labs, ekg, viral swabs, UA, IVF, imaging, supportive care, serial reassessment Differential Diagnosis Differential Diagnoses: The differential diagnosis associated with the presentation includes as above Admission/Observation Consideration of admission/observation: Escalation of care including admission/observation considered Differential diagnoses includes: viral syndrome, anemia, electrolyte abnormality, hypoglycemia, orthostatic hypotension, dehydration, BPPV vs labrynthitis, vaso vagal syncope, anxiety, seizure No red flag features for central vertigo to include gradual onset, vertical/bidirectional or nonfatigable nystagmus, focal neurologic findings on exam (including inability to ambulate). Presentation not consistent with an acute [employer] infection, vertebral basilar artery insufficiency, cerebellar hemorrhage or infarction,?intracranial mass or bleed, temporal lobe epilepsy,?MS, trauma, complex migraine headache. I have also considered ACS, arrhythmia, PE (PERC 1) Lab Data MDM Lab Attestation statement: I reviewed the patient's lab results. as above. 04/02/25 12:32 04/02/25 12:37 Labs: Lab Results 04/02/25 04/02/25 04/02/25 Range/Units 12:30 12:32 12:37 WBC 6.9 (4.8-10.8) X10*3/uL RBC 4.37 (4.20-5.50) X10*6/uL Hgb 14.1 (12.0-16.0) g/dl Hct 38.5 (37.0-47.0) % MCV 88.1 (80.0-98.0) fL MCH 32.3 (27.0-33.0) pg MCHC 36.6 H (31.0-35.0) g/dl RDW 12.6 (11.0-16.0) % Plt Count 277 (160-400) X10*3/uL MPV 10.0 (9.4-12.3) fL Immature Gran % (Auto) 0.4 (0.0-0.4) % Neut % (Auto) 55.7 (45-73) % Lymph % (Auto) 35.0 (20-40) % [place] % (Auto) 6.7 (2-11) % Eos % (Auto) 1.9 (0-4) % Baso % (Auto) 0.3 (0-2) % Lymph # (Auto) 2.4 (1.2-4.9) X10*3/uL [place] # (Auto) 0.5 (0.1-1.2) X10*3/uL Eos # (Auto) 0.1 (0.0-0.4) X10*3/uL Baso # (Auto) 0.0 (0.0-0.2) X10*3/uL Abs Immat Gran (auto) 0.03 (0.00-0.03) X10*3/uL Absolute Neuts (auto) 3.9 (2.0-8.3) x10*3/uL Absolute Nucleated RBC 0.000 (0.0-0.012) X10*3/uL Nucleated RBC % (auto) 0.0 (0.0-0.2) /100WBC D-Dimer High Sensitivty NG/ML Sodium 139 (135-145) mmol/L Potassium 4.0 (3.3-5.1) mmol/L Chloride 105 (96-108) mmol/L Carbon Dioxide 28 (22-29) mmol/L Anion Gap 10 L (12-20) BUN 13 (9-16) mg/dL Creatinine 0.88 (0.5-1.4) mg/dL Estim Creat Clear Calc 81.5 Estimated GFR > 60 POC Glucose 129 H (60-115) mg/dL Random Glucose 132 H (60-115) mg/dL Lactic Acid 1.2 (0.5-2.0) mmol/L Calcium 9.5 (8.4-10.2) mg/dL Magnesium 2.0 (1.6-2.6) mg/dL Total Bilirubin 0.4 (0.0-1.0) mg/dL AST 22 (5-31) U/L ALT 29 (0-31) U/L Alkaline Phosphatase 127 H (39-117) U/L Troponin I High Sens < 2.7 (<3.5-17.0) ng/L Total Protein 7.5 (6.5-8.0) g/dL Albumin 4.5 (3.5-5.0) g/dL TSH 0.64 (0.32-4.0) uIU/mL Urine Color Urine Appearance Urine pH (5.0-9.0) Ur Specific Hale (1.005-1.025) Urine Protein (Neg-Trace) mg/dL Urine Glucose (UA) (Negative) mg/dL Urine Ketones (Negative) mg/dL Urine Blood (Negative) Urine Nitrite (Negative) Ur Leukocyte Esterase (Negative) Urine RBC (0-2) /HPF Urine WBC (0-5) /HPF Urine WBC Clumps Ur Squamous Epith Cells (0-2) /HPF Urine Bacteria (None Seen) Hyaline Casts (0-2) /LPF Influenza Type A (PCR) NEGATIVE (Negative) Influenza Type B (PCR) NEGATIVE (Negative) RSV RNA Qual (PCR) NEGATIVE (Negative) SARS-CoV-2 RNA (RT-PCR) NEGATIVE (Negative) 04/02/25 04/02/25 04/02/25 Range/Units 12:51 13:23 15:28 WBC (4.8-10.8) X10*3/uL RBC (4.20-5.50) X10*6/uL Hgb (12.0-16.0) g/dl Hct (37.0-47.0) % MCV (80.0-98.0) fL MCH (27.0-33.0) pg MCHC (31.0-35.0) g/dl RDW (11.0-16.0) % Plt Count (160-400) X10*3/uL MPV (9.4-12.3) fL Immature Gran % (Auto) (0.0-0.4) % Neut % (Auto) (45-73) % Lymph % (Auto) (20-40) % [place] % (Auto) (2-11) % Eos % (Auto) (0-4) % Baso % (Auto) (0-2) % Lymph # (Auto) (1.2-4.9) X10*3/uL [place] # (Auto) (0.1-1.2) X10*3/uL Eos # (Auto) (0.0-0.4) X10*3/uL Baso # (Auto) (0.0-0.2) X10*3/uL Abs Immat Gran (auto) (0.00-0.03) X10*3/uL Absolute Neuts (auto) (2.0-8.3) x10*3/uL Absolute Nucleated RBC (0.0-0.012) X10*3/uL Nucleated RBC % (auto) (0.0-0.2) /100WBC D-Dimer High Sensitivty 160 NG/ML Sodium (135-145) mmol/L Potassium (3.3-5.1) mmol/L Chloride (96-108) mmol/L Carbon Dioxide (22-29) mmol/L Anion Gap (12-20) BUN (9-16) mg/dL Creatinine (0.5-1.4) mg/dL Estim Creat Clear Calc Estimated GFR POC Glucose (60-115) mg/dL Random Glucose (60-115) mg/dL Lactic Acid (0.5-2.0) mmol/L Calcium (8.4-10.2) mg/dL Magnesium (1.6-2.6) mg/dL Total Bilirubin (0.0-1.0) mg/dL AST (5-31) U/L ALT (0-31) U/L Alkaline Phosphatase (39-117) U/L Troponin I High Sens < 2.7 (<3.5-17.0) ng/L Total Protein (6.5-8.0) g/dL Albumin (3.5-5.0) g/dL TSH (0.32-4.0) uIU/mL Urine Color Yellow Urine Appearance Clear Urine pH 6.0 (5.0-9.0) Ur Specific [place] <= 1.005 (1.005-1.025) Urine Protein Negative (Neg-Trace) mg/dL Urine Glucose (UA) Negative (Negative) mg/dL Urine Ketones Negative (Negative) mg/dL Urine Blood Small (1+) H (Negative) Urine Nitrite Negative (Negative) Ur Leukocyte Esterase Large (3+) H (Negative) Urine RBC 0-2 (0-2) /HPF Urine WBC 11-20 (0-5) /HPF Urine WBC Clumps Present Ur Squamous Epith Cells 0-2 (0-2) /HPF Urine Bacteria Trace (None Seen) Hyaline Casts 0-2 (0-2) /LPF Influenza Type A (PCR) (Negative) Influenza Type B (PCR) (Negative) RSV RNA Qual (PCR) (Negative) SARS-CoV-2 RNA (RT-PCR) (Negative) Independent Interpretation I performed an independent interpretation of an: EKG, Plain X-Ray and CT Scan Interpretation: ekg showing NSR rate 85 bpm, no acute ischemic changes or st elevations CT head/brain without intracranial bleed or skull fracture CT cervical spine without fracture or subluxation XR lumbar spine without fracture CT a/p without renal stone Radiology Impression Discussion of test interpretation with radiology: I have reviewed the radiologist's reading. Radiologist Impression: Procedure(s): ECG 12 lead EKG Accession Number(s): [id number] cc: Spencer Little DO~ Test Reason : SYNCOPE Blood Pressure : */* mmHG Vent. Rate : 85 BPM Atrial Rate : 85 BPM P-R Int : 128 ms QRS Dur : 78 ms QT Int : 374 ms P-R-T Axes : 42 69 50 degrees QTcB Int : 445 ms Normal sinus rhythm Normal ECG When compared with ECG of 26-Mar-2025 20:31, No significant change was found Date of Service: 04/02/25 Procedure(s): CT head/brain wo IV con Accession Number(s): [id number] cc: Wojciech Kinsey MD; Verito Esparza~ Report Number: [id number]: Total DLP = 0.00 mGy-cm CLINICAL HISTORY: syncope in WR CT HEAD WITHOUT CONTRAST Comparison: CT/SR - CT ANGIO HEAD NECK - 12/05/24 02:57 EST Findings: No acute intracranial hemorrhage, extra-axial fluid collection, hydrocephalus or midline shift. Mild parenchymal atrophy. No significant white matter disease. There is no sinus or mastoid fluid. Incomplete pneumatization of the left mastoid air cells. Visualized orbits: No acute abnormalities. There is no acute fracture. IMPRESSION: 1. No acute intracranial hemorrhage. This document has been electronically signed by: Luz Mckinley DO on 04/02/2025 16:02:08 Date of Service: 04/02/25 Procedure(s): CT cervical spine wo IV con Accession Number(s): [id number] cc: Wojciech Kinsey MD; Verito Esparza~ Report Number: [id number]: Total DLP = 1049.96 mGy-cm CLINICAL HISTORY: syncope in WR CT CERVICAL SPINE WITHOUT CONTRAST Comparison: CT/SR - CT ANGIO HEAD NECK - 12/05/24 02:57 EST Findings: Normal vertebral body alignment. Oycu-fw-kjuzfjeo disc degenerative changes especially at C5-6. Mild facet degenerative changes. No acute fractures or dislocations. Please see the separate report for the CT head/brain. No cervical fluid collections or masses. No consolidation or effusion at the lung apices. IMPRESSION: No acute fracture in the cervical spine. This document has been electronically signed by: Luz Mckinley DO on 04/02/2025 15:59:31 Date of Service: 04/02/25 Procedure(s): CT abdomen pelvis w IV con Accession Number(s): [id number] cc: Wojciech Kinsey MD; Ciara Riddle~ Report Number: [id number]: Total DLP = 0.00 mGy-cm CLINICAL HISTORY: L flank pain, wbc clumps in urine CT abdomen and pelvis with contrast Comparison: 12/29/2024 Findings: The lung bases are clear. The liver, spleen, adrenal glands and pancreas demonstrate no acute process. The gallbladder is absent. Kidneys demonstrate neither obstruction or perfusion abnormality. The bladder is decompressed. No bowel obstruction or free air. 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 No acute osseous finding. Impression: No evidence of pyelonephritis by CT. No obstructive uropathy. Severe atherosclerotic disease involving the lower aorta and pelvic vasculature as detailed above. This document has been electronically signed by: Cricket Domínguez MD on 04/02/2025 18:38:08 Date of Service: 04/02/25 Procedure(s): XR lumbar spine 2-3V Accession Number(s): [id number] cc: Wojciech Kinsey MD; Ciara Riddle~ CLINICAL HISTORY: fall, left lower back pain 3 views lumbar spine Comparison: CR/SR - XR LUMBAR SPINE 2-3V - 03/16/24 15:41 EDT Findings: Normal vertebral body alignment. No acute fractures or dislocation. No significant vertebral body compression deformity. Mild multilevel disc space narrowing. Redemonstration of a L4-5 disc spacer with stable adjacent endplate irregularities and sclerosis. Moderate facet arthrosis at L5-S1. Prominent aortic calcifications. Multiple clips project over the right upper and left lower quadrants. IMPRESSION: No acute fracture in the lumbar spine. This document has been electronically signed by: Luz Mckinley DO on 04/02/2025 17:15:53 External Record Review External record reviewed: Inpatient record, Office record, Outpatient record, Prior outpatient labs and Primary care record Chronic Conditions Patient?s care impacted by: Diabetes and Hypertension Social Determinants Patient?s care significantly limited by Social Determinants of Health including: Other Social Determinant of Health Critical Care Time Critical Care Time Critical Care Time: Yes Total Critical Care Time: 37 Attestation: Critical care time in the amount of 37 minutes has been provided to the patient in terms of direct patient care, frequent reevaluation, review and interpretation of medical data and results, and management of potentially life-threatening conditions. This is all outside of any medical procedures. Discharge Plan Discharge Clinical Impression: Urinary tract infection Patient Disposition: Home, Self-Care Instructions: Urinary Tract Infection in Women (ED) Additional Instructions: Your work up today is reassuring. As discussed, the CT scan of your abdomen shows vascular disease of your aorta. You need to follow up with vascular surgeon (dr. kwong) regarding this. You have been provided with a referral. Call them to establish care, they will not call you. Your urine shows a urinary tract infection. I am treating you with antibiotics. Ceftin is an antibiotic that has been sent to your pharmacy. Take this as prescribed for 7 days. Make sure you are staying adequately hydrated. Follow up with your outpatient providers. Return with any new or worsening symptoms. In the case of an emergency call 911. Prescriptions: New cefuroxime axetil 250 mg tablet 250 mg PO BID 7 Days Qty: 14 0RF No Action ropinirole 1 mg Tablet 1 mg PO BEDTIME insulin glargine [Lantus U-100 Insulin] 100 unit/mL Solution 26 unit SUBCUT BEDTIME cetirizine [Zyrtec] 10 mg Tablet 10 mg PO DAILY prazosin 1 mg Capsule 1 mg PO BEDTIME mirtazapine 45 mg Tablet 45 mg PO BEDTIME PRN (Reason: Insomnia) montelukast [Singulair] 10 mg Tablet 10 mg PO BEDTIME bupropion HCl [Wellbutrin XL] 150 mg Tablet Extended Release 24 Hr 150 mg PO DAILY tiotropium bromide [Spiriva with HandiHaler] 18 mcg Capsule, W/Inhalation Device 1 cap INHALATION DAILY duloxetine [Cymbalta] 60 mg Capsule,Delayed Release(Dr/Ec) 60 mg PO DAILY fenofibrate micronized 134 mg capsule 1 tab PO DAILY@1800 fluticasone propionate 50 mcg/actuation spray,suspension 2 spray intranasal DAILY albuterol sulfate 2.5 mg /3 mL (0.083 %) solution for nebulization 2.5 mg inhalation Q4H PRN (Reason: wheezing) trazodone 50 mg tablet 50 mg PO BEDTIME PRN (Reason: Insomnia) lisinopril 20 mg tablet 20 mg PO DAILY propranolol 40 mg tablet 40 mg PO BID baclofen 10 mg tablet 10 mg PO TID pseudoephedrine HCl [Sudogest] 30 mg tablet 30 mg PO Q4H PRN (Reason: congestion) gabapentin 100 mg capsule 100 mg PO TID albuterol sulfate [Ventolin HFA] 90 mcg/actuation HFA aerosol inhaler 2 puff INHALATION Q4H PRN (Reason: Shortness Of Breath Or Wheezing) clotrimazole 1 % cream 1 appl topical Q12H PRN (Reason: Rash) diclofenac sodium 1 % gel 2 g topical QID PRN (Reason: pain) Trulicity 1.5 mg/0.5 mL pen injector 1.5 mg subcut TH@0900 famotidine 20 mg Tablet 20 mg PO DAILY Qty: 30 0RF tramadol 50 mg tablet 50 mg PO BID PRN (Reason: pain) Qty: 7 0RF cyclobenzaprine 10 mg tablet 10 mg PO TID PRN (Reason: muscle spasm) Qty: 10 0RF ketorolac 10 mg tablet 10 mg PO TID PRN (Reason: pain) 5 Days Qty: 12 0RF cefuroxime axetil 250 mg tablet 250 mg PO BID Qty: 9 0RF cyclobenzaprine 10 mg tablet 10 mg PO TID PRN (Reason: muscle spasm) Qty: 10 0RF ondansetron 4 mg tablet,disintegrating 4 mg PO Q8H PRN (Reason: nausea and vomiting) Qty: 7 0RF sumatriptan succinate [Imitrex] 50 mg tablet 50 mg PO Q2H PRN (Reason: migraine headache) Qty: 10 0RF Rx Instructions: do not exceed 2 doses per 24 hrs pghunfcmwe-rshbodtyyvmzk-aaeb 50-325-40 mg tablet 1 tab PO Q6H PRN (Reason: haeadace) Qty: 20 0RF hydrocodone-acetaminophen 5-325 mg tablet 1 tab PO Q4-6H PRN (Reason: pain) Qty: 30 0RF Rx Instructions: Partial Fill upon patient request. 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
[2025-04-02 13:31] LABS: Appearance Urine Clear; Color Urine Yellow; Glucose Urine UA Negative (Negative); Leukocyte Esterase Urine Large (3+) (Negative); Nitrite Urine Negative (Negative); Specific Gravity - Urine <= 1.005 (1.005-1.025); UMIC TRIGGER UACC YES; Urine Blood Small (1+) (Negative); Urine Ketones Negative (Negative); Urine Protein Negative (Neg-Trace)
[2025-04-02 13:43] LABS: Bacteria Urine Trace (None Seen); Hyaline Casts Urine 0-2 /LPF (0-2); RBC Urine 0-2 /HPF (0-2); Squamous Epithelial Cell Urine 0-2 /HPF (0-2); UACC Culture Trigger YES; WBC Clumps Urine Present
[2025-04-02] MEDS: Acetaminophen 1,000 MG/100 ML PIGGYBACK 400 MG IV (15:21)
[2025-04-02] MEDS: 0.9 % Sodium Chloride 1,000 ML 999 ML IV (15:22)
[2025-04-02 15:55] LABS: Troponin-I High Sensitivity < 2.7 ng/L (<3.5-17.0)
[2025-04-02] MEDS: Ketorolac Tromethamine 30 MG/ML VIAL IVPUSH (17:14)
[2025-04-02] MEDS: iohexoL 350 MG/ML 100 ML INFUS..BTL IV (17:22)
[2025-04-02] MEDS: cefuroxime axetiL 250 MG TABLET PO (19:28)
[2025-04-04 09:01] LABS: Glucose, Whole Blood 129 mg/dL (60-115)
== END 2025-04-02 19:41 | disposition home or self-care (01) ==
PROVIDERS: Physician Assistant Medical; Emergency Provider Emergency Medicine; PCP Internal Medicine
DX: N39.0 Urinary tract infection, site not specified (principal); R55 Syncope and collapse; J44.9 Chronic obstructive pulmonary disease, unspecified; I10 Essential (primary) hypertension; E11.9 Type 2 diabetes mellitus without complications; K21.9 Gastro-esophageal reflux disease without esophagitis; Z03.818 Encounter for observation for suspected exposure to other biological agents ruled out
CPT/HCPCS: 0241U; 36415; 70450; 72100; 72125; 74177; 80053; 81001; 82947; 83605; 83735; 84443; 84484; 85025; 85379; 87086; 93005; 96361; 96365; 96375; 99284; 99285; J0131; J1885; Q9967

== ENCOUNTER → 2025-04-02 12:27 | Outpatient (BNV) | payer MEDICAID, SELFPAY | PROVIDERS: Emergency Provider Emergency Medicine; PCP Internal Medicine; Visit Provider Internal Medicine | DX: R55 Syncope and collapse (principal) | CPT/HCPCS: 93010 ==

== ENCOUNTER → 2025-04-02 12:27 | Outpatient (BNV) | payer MEDICAID, SELFPAY | PROVIDERS: Emergency Provider Emergency Medicine; PCP Internal Medicine; Visit Provider Radiology Diagnostic Radiology | DX: R10.32 Left lower quadrant pain (principal); M50.322 Other cervical disc degeneration at C5-C6 level; R55 Syncope and collapse; M51.360 Other intervertebral disc degeneration, lumbar region with discogenic back pain only | CPT/HCPCS: 70450; 72100; 72125; 74177 ==

== ENCOUNTER 2025-04-13 19:58 | Outpatient (REF) | payer MEDICAID, SELFPAY ==
--- OUTSIDE RECORDS SUMMARY | 2025-04-13 20:02 | XMS_ITS | Encounter Summary ---
Author Organization [employer] Address [address] [facility] [place] [address] Care Team Providers Care Beater Engineer Name Role Phone Wojciech Li MD Primary Care Provide r Wojciech Li MD Primary Care Provide r Wojciech Li MD Primary Care Provide r Sheree Jarvis RN Unavailable [phone] Josie Edwards Unavailable Reason for Visit * Reason Comments Med Refill Encounter Details Date Type Department Care Team (Late st Contact Info) Description 07/15/2023 Refill [facility] [address] [place], [place] [phone] Wojciech Li MD [address] [place] [address] Type 2 diabetes mellitus without complication, unspecified whether senior care insulin use (CMS/[facility]) Social History Tobacco Use Types [...] Care Team (Late st Contact Info) Description 04/20/2025 11:00 AM EDT Office Visit [address] [address] Nikko Daynebell, MOTOR ANALYST [address] [place] [address] 05/17/2025 11:00 AM EDT Office Visit [address] [address] documented as of this encounter Visit Diagnoses Diagnosis Type 2 diabetes mellitus without complication, 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 ([facility]) documented in this encounter Additional Health Concerns Assessment Noted Time PHQ-9 Depression Total Score: 0 06/10/20 10:47 AM EDT documented as of this encounter Care Teams Beater Engineer Relationship Specialty Start Date End Date Wojciech Li MD [address] [place] [id number] PCP - General Internal Medicine 06/01/14 03/04/24 Wojciech Li MD [address] [place] [id number] PCP - General Internal Medicine 03/12/24 03/12/24 Wojciech Li MD [address] [place] [id number] PCP - General Internal Medicine 04/12/24 Sheree Jarvis, MATT [address] [place] [id number] Registered Nurse Family Medicine 03/28/25 Josie Edwards 03/28/25 documented as of this encounter
[2025-04-13 22:21] LABS: Bacterial Vaginosis PCR POSITIVE (Negative); Candida Group PCR NOT DETECTED (Not Detect); Candida glab krusei PCR NOT DETECTED (Not Detect); Trichomonas vaginalis PCR NOT DETECTED (Not Detect)
== END 2025-04-13 19:59 | disposition home or self-care (01) ==
LOC: HO.HHCLNP 19:58
PROVIDERS: Visit Provider Nurse Practitioner
DX: N89.8 Other specified noninflammatory disorders of vagina (principal)
CPT/HCPCS: 81515

== ENCOUNTER 2025-04-19 10:05 | Outpatient (AMB) | payer MEDICAID, SELFPAY ==
--- NOTE | 2025-04-19 10:07 | A.OFFVIS_ITS ---
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 Patient states she has pain in her leg and back. Was in the emergency room for flank pain, had a CT scan and was referred to see Dr Robles. Accompanied by: Sister Allergies ENVIRONMENTAL Allergy (Mild, Uncoded 04/02/25 12:45) Dry Eye HPI HPI SUPERVISOR LACE TEARING/ED referral PAD s/p CT Abd/pelvis 04/02/25: Details: The patient is a 54-year-old female presenting with leg pain and arterial blockages identified on a CT scan. She has a history of diabetes mellitus for approximately seven years, managed with lifestyle modifications and medications. Her diabetes management is complicated by her tobacco use, as she smokes approximately eight cigarettes per day. The patient experiences significant leg pain, particularly in the left leg, which limits her walking ability. She is unable to walk a block without needing to stop due to the pain, indicating possible claudication. [facility] Medical History Hemiplegic migraine HLD (hyperlipidemia) HTN (hypertension) Migraines Sciatica Asthma COPD (chronic obstructive pulmonary disease) Diabetes Surgical History Hx of colonoscopy History of esophagogastroduodenoscopy (EGD) Hx laparoscopic cholecystectomy History of ear surgery H/O: hysterectomy Family History Sister Migraine Social History Household Members: None Housing: Apartment Do you presently have visiting nurse or other home services: No Alcohol intake: never Patient Tobacco Use Status: Current everyday Tobacco user Tobacco use type: Cigarette Cigarette Packs Per Day: 0.4 Cigarettes Per Day: 7 Years Smoked: 20 Second Hand Smoke Exposure: Yes Advance Directives Date on File: 05/25/24 service: No Current occupational status: other Review of Systems Const All systems reviewed & are unremarkable except as noted in HPI and below Reports no additional complaints ENT Reports Normal hearing present Card Denies chest pain, Denies chest pain at rest, Denies chest pain with activity and Denies pedal edema Resp Denies cough GI Denies abdominal pain Musc Denies abnormal gait, Denies muscle cramps and Denies radiating pain into limb Skin/Breast Denies skin ulcer and Denies wounds Neuro Reports Normal hearing present and Denies abnormal gait Psych Reports no additional complaints Physical Exam Const General: cooperative, healthy appearing and comfortable Orientation/consciousness: oriented to person, oriented to place and oriented to time HEENT Head: Yes normal to inspection Neck Neck: Yes normal visual inspection Carotids: no bruits Chest Chest palpation & inspection: normal inspection of the chest Resp Effort & Inspection: normal respiratory effort and able to speak in complete sentences Auscultation: clear to auscultation bilaterally, no crackles, no rales, no rhonchi and no wheezes Cardio Other: Bilateral DP signals Rate: regular rate Rhythm: regular rhythm Heart sounds: S1 normal heart sound present and S2 normal heart sound present Bruits: no carotid bruits GI Inspection: Yes normal to inspection Skin Wounds: no wounds Hair: normal Neuro General: oriented to person, oriented to place and oriented to time Cranial nerves: Yes CN's II-XII intact bilaterally and Yes Normal hearing present Cognition (Neuro): normal cognition Motor exam (neuro): 5/5 motor strength present throughout Extrem Other: venous exam: No significant superficial varicosities or spider telangiectasias, minimal edema General: No clubbing, No cyanosis and No edema Psych Appearance: grossly normal Mental Status: mental status grossly normal Speech and movement: Normal speech and movement present Results Reviewed Results Reviewed: CT angiogram dated 04/02/2025 demonstrates severe atherosclerotic disease at the aortic bifurcation Assessment & Plan Assessment & Plan (1) PAD (peripheral artery disease): Code(s): I73.9 - Peripheral vascular disease, unspecified Category: Medical Plan: In short patient has claudication. I did review the pathophysiology of peripheral vascular disease with the patient. In addition we did discuss routine conservative measures including a healthy diet and the importance of exercise and ambulation. We did discuss risk factor modification. CT angiogram is concerning for severe atherosclerotic disease at the aortic bifurcation. I would like to get a better sense of her runoff and I have ordered noninvasive lower extremity arterial testing. She will follow up with us after testing. Thank you for allowing us to assist in her care. Plan Patient was informed and verbally consented to the use of an ambient scribe for clinic note documentation during this visit. Orders: Orders US arterial duplex LE BI 1 Week I73.9 - Peripheral vascular disease, unspecified Patient Instructions: - Schedule an ultrasound as soon as possible. - Attend the follow-up appointment to discuss ultrasound results and management plan. - Consider smoking cessation to improve vascular and overall health. Coding Level of Care Code New Pt Level 4 (86565) Complex EM visit Add On G2211 Diagnoses PAD (peripheral artery disease) I73.9
--- OUTSIDE RECORDS SUMMARY | 2025-04-19 11:06 | XMS_ITS | Encounter Summary ---
Author Organization [employer] Address [address] [place] [address] Care Team Providers Care Awnings Mechanic Name Role Phone Wojciech Li MD Primary Care Provide r Wojciech Li MD Primary Care Provide r Wojciech Li MD Primary Care Provide r Sheree Jarvis RN Unavailable [phone] Josie Edwards Unavailable Reason for Visit * Reason Comments Med Refill Encounter Details Date Type Department Care Team (Late st Contact Info) Description 07/15/2023 Refill [facility] [address] [place], [place] [phone] Wojciech Li MD [address] [place] [address] Type 2 diabetes mellitus without complication, unspecified whether care home insulin use (CMS/[facility]) Social History Tobacco Use Types [...] Description 04/20/2025 11:00 AM EDT Office Visit [address] [address] Nikko Daynebell, CORRECTIONS IDENTIFICATION TECHNICIAN [address] [place] [address] 05/17/2025 11:00 AM EDT Office Visit [address] [address] documented as of this encounter Visit Diagnoses Diagnosis Type 2 diabetes mellitus without complication, 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 ([facility]) documented in this encounter Additional Health Concerns Assessment Noted Time PHQ-9 Depression Total Score: 0 06/10/20 10:47 AM EDT documented as of this encounter Care Teams Awnings Mechanic Relationship Specialty Start Date End Date Wojciech Li MD [address] [place] [id number] PCP - General Internal Medicine 06/01/14 03/04/24 Wojciech Li MD [address] [place] [phone] PCP - General Internal Medicine 03/12/24 03/12/24 Wojciech Li MD [address] [place] [phone] PCP - General Internal Medicine 04/12/24 Sheree Jarvis, MATT [address] [place] [id number] Registered Nurse Family Medicine 03/28/25 Josie Edwards 03/28/25 documented as of this encounter
== END 2025-04-19 10:30 | disposition home or self-care (01) ==
LOC: HO.HVS 10:06
PROVIDERS: PCP Internal Medicine; Visit Provider Surgery Vascular Surgery
DX: I73.9 Peripheral vascular disease, unspecified (principal)
CPT/HCPCS: 99204

== ENCOUNTER → 2025-04-19 10:05 | Outpatient (BNVA) | payer MEDICAID, SELFPAY | PROVIDERS: PCP Internal Medicine; Visit Provider Surgery Vascular Surgery | DX: Z71.2 Person consulting for explanation of examination or test findings (principal); I73.9 Peripheral vascular disease, unspecified; R10.9 Unspecified abdominal pain; M54.50 Low back pain, unspecified | CPT/HCPCS: 99202 ==

== ENCOUNTER 2025-04-20 11:48 | Emergency (ER) | payer MEDICAID, SELFPAY ==
[2025-04-20] VITALS (9 sets, daily range): BP systolic 119–151; BP diastolic 64–79; PULSE 74–105; RESP 16–18; TEMP 36.3–37.2; O2SAT 90–96; BMI 42.9
--- NOTE | 2025-04-20 | ECG_ITS ---
Test Reason : CP Blood Pressure : */* mmHG Vent. Rate : 100 BPM Atrial Rate : 100 BPM P-R Int : 116 ms QRS Dur : 78 ms QT Int : 364 ms P-R-T Axes : 32 60 20 degrees QTcB Int : 469 ms Normal sinus rhythm Normal ECG When compared with ECG of 02-Apr-2025 12:27, No significant change was found Referred By: Generic ED Physician Electronically Signed By: RIVAS GARCIA
--- NOTE | 2025-04-20 | ECG_ITS ---
Test Reason : near syncope Blood Pressure : */* mmHG Vent. Rate : 80 BPM Atrial Rate : 80 BPM P-R Int : 136 ms QRS Dur : 80 ms QT Int : 388 ms P-R-T Axes : 47 48 29 degrees QTcB Int : 447 ms Normal sinus rhythm Normal ECG When compared with ECG of 20-Apr-2025 11:52, No significant change was found Referred By: Generic ED Physician Electronically Signed By: RIVAS GARCIA
--- NOTE | 2025-04-20 13:35 | PC.NURSE ---
This nurse assisted patient to bathroom on the way back to the patients room pt had near syncope episode provider aware, pt placed on Sewing Machine Adjuster, EKG obtained, and POC obtained.
--- NOTE | 2025-04-20 14:05 | ED.CHESTPAIN ---
HPI - Chest Pain General Chief Complaint: Chest Pain Stated Complaint: From walk in, chest pain, nitro/ASA given, SOB Time Seen by Provider: 04/20/25 14:05 Source: patient, EMS and educational interpreter (ukrainian) Mode of arrival: EMS Limitations: language barrier (ukrainian) History of Present Illness ED Provider: GAURAV WHALEN PA-C HPI narrative: 54 year old Greenlandic speaking female with pmhx significant for migraine, asthma/COPD, HTN, HLD, PAD, sciatica, DM, anxiety presents to the ED today for evaluation of left sided chest pain with associated dizziness and shortness of breath x today. She presented to [facility] for evaluation and EMS was called for transport to ED. Prior to transport, patient was given 324 aspirin and two doses of nitro. She states this did not relieve her pain. Reports mild chest discomfort at present. States dizziness and shortness of breath have resolved. She did not have to use her home inhaler today. No known sick contacts. Admits to similar episodes in the past with unremarkable outpatient and ED evaluations. Denies recent travel or long car rides. Denies current tobacco use. No hormone use. Denies headache, vision changes, cough, hemoptysis, palpitations, N/V/D, abdominal or flank pain, urinary symptoms. She reoprts following him with vascular surgeon yesterday who has ordered outpatient ultrasound of LEs for further evaluation into her PAD. Of note, I was called to patient's beside as she was noted to have a near syncopal episode while RN was assisting patient back from the restroom. She did not fall to the ground, she was assisted onto her bed. She did not lose consciousness. She states I felt like I was going to faint . Related Data Home Medications ?Medication ?Instructions ?Recorded ?Confirmed bupropion HCl 150 mg 24 hr tablet, 150 mg PO DAILY 10/06/20 05/23/24 extended release (Wellbutrin XL) cetirizine 10 mg tablet (Zyrtec) 10 mg PO DAILY 10/06/20 05/23/24 duloxetine 60 mg capsule,delayed 60 mg PO DAILY 10/06/20 05/23/24 release (Cymbalta) insulin glargine 100 unit/mL 26 unit subcut BEDTIME 10/06/20 05/23/24 subcutaneous solution (Lantus U-100 Insulin) mirtazapine 45 mg tablet 45 mg PO BEDTIME PRN Insomnia 10/06/20 05/23/24 montelukast 10 mg tablet 10 mg PO BEDTIME 10/06/20 05/23/24 (Singulair) prazosin 1 mg capsule 1 mg PO BEDTIME 10/06/20 05/23/24 ropinirole 1 mg tablet 1 mg PO BEDTIME 10/06/20 05/23/24 tiotropium bromide 18 mcg capsule 1 cap inhalation DAILY 10/06/20 05/23/24 with inhalation device (Spiriva with HandiHaler) fenofibrate micronized 134 mg 1 tab PO DAILY@1800 05/24/21 05/23/24 capsule fluticasone propionate 50 2 spray intranasal DAILY 05/24/21 05/23/24 mcg/actuation nasal spray,suspension albuterol sulfate 2.5 mg/3 mL 2.5 mg inhalation Q4H PRN wheezing 05/23/24 05/23/24 (0.083 %) solution for nebulization albuterol sulfate 90 mcg/actuation 2 puff inhalation Q4H PRN 05/23/24 05/23/24 aerosol inhaler (Ventolin HFA) Shortness Of Breath Or Wheezing baclofen 10 mg tablet 10 mg PO TID muscle spasm 05/23/24 05/23/24 clotrimazole 1 % topical cream 1 appl topical Q12H PRN Rash 05/23/24 05/23/24 diclofenac sodium 1 % topical gel 2 g topical QID PRN pain 05/23/24 05/23/24 dulaglutide 1.5 mg/0.5 mL 1.5 mg subcut TH@0900 05/23/24 05/23/24 subcutaneous pen injector (Trulicity) gabapentin 100 mg capsule 100 mg PO TID 05/23/24 05/23/24 lisinopril 20 mg tablet 20 mg PO DAILY 05/23/24 05/23/24 propranolol 40 mg tablet 40 mg PO BID 05/23/24 05/23/24 pseudoephedrine HCl 30 mg tablet 30 mg PO Q4H PRN congestion 05/23/24 05/23/24 (Sudogest) trazodone 50 mg tablet 50 mg PO BEDTIME PRN Insomnia 05/23/24 05/23/24 atorvastatin 40 mg tablet (Lipitor) 40 mg PO DAILY 04/19/25 cholecalciferol (vitamin D3) 50 50 mcg PO DAILY 04/19/25 mcg (2,000 unit) capsule Previous Rx's ?Medication ?Instructions ?Recorded ondansetron 4 mg disintegrating 4 mg PO Q8H PRN nausea and 05/16/24 tablet vomiting #7 tabs famotidine 20 mg tablet 20 mg PO DAILY #30 tabs 05/24/24 hydrocodone 5 mg-acetaminophen 325 1 tab PO Q4-6H PRN pain #30 tabs 06/23/24 mg tablet zbnqqjwypv-tasxjzmigpwdp-yczowzjf 1 tab PO Q6H PRN haeadace #20 tabs 12/05/24 50 mg-325 mg-40 mg tablet sumatriptan succinate 50 mg tablet 50 mg PO Q2H PRN migraine headache 12/05/24 (Imitrex) #10 tabs cyclobenzaprine 10 mg tablet 10 mg PO TID PRN muscle spasm #10 12/19/24 tabs tramadol 50 mg tablet 50 mg PO BID PRN pain #7 tabs 12/19/24 cefuroxime axetil 250 mg tablet 250 mg PO BID #9 tabs 12/29/24 cyclobenzaprine 10 mg tablet 10 mg PO TID PRN muscle spasm #10 12/29/24 tabs ketorolac 10 mg tablet 10 mg PO TID PRN pain 5 days #12 12/29/24 tabs cefuroxime axetil 250 mg tablet 250 mg PO BID 7 days #14 tabs 04/02/25 Allergies Allergy/AdvReac Type Severity Reaction Status Date / Time ENVIRONMENTAL Allergy Mild Dry Eye Uncoded 04/20/25 12:05 Review of Systems Review of Systems: Yes all other systems are reviewed and are negative [facility] Past Medical History Attestation statement: The following information was validated with the patient. Source: old records reviewed Medical History Hemiplegic migraine HLD (hyperlipidemia) HTN (hypertension) Migraines Sciatica Asthma COPD (chronic obstructive pulmonary disease) Diabetes Surgical History Hx of colonoscopy History of esophagogastroduodenoscopy (EGD) Hx laparoscopic cholecystectomy History of ear surgery H/O: hysterectomy Family History Family History Sister Migraine Social History Social History Household Members: None Housing: Apartment Do you presently have visiting nurse or other home services: No Alcohol intake: never Patient Tobacco Use Status: Current everyday Tobacco user Tobacco use type: Cigarette Cigarette Packs Per Day: 0.4 Cigarettes Per Day: 7 Years Smoked: 20 Second Hand Smoke Exposure: Yes Advance Directives: Yes Advance Directives on File: Yes Advance Directives Date on File: 05/25/24 service: No Current occupational status: other Physical Exam Vital Signs: Vital Signs: Last Vital Signs Temp 98.1 F 04/20/25 18:43 Pulse 78 04/20/25 18:43 Resp 16 04/20/25 18:43 BP 139/79 04/20/25 18:43 Pulse Ox 95 04/20/25 18:43 O2 Del Method Room Air 04/20/25 18:43 BMI result Body Mass Index 42.9 vital signs stable, not hypoxic or tachycardic General: well appearing, in no acute distress. Skin: Warm, dry, intact. No rashes or lesions. Head: Normocephalic, atraumatic. EENT: Hearing is intact b/l. Conjunctiva clear. PERRLA. EOM intact. Moist mucous membranes.? Neck: Supple without LAD Cardiac: Chest wall symmetric. RRR Lungs: Normal respiratory effort without accessory muscle use. CTA bilaterally. No rales, rhonchi, or wheezes.? Abdomen: Soft, non-tender, non-distended. No rebound tenderness or guarding. Positive BS x4. Back: No midline spinous or paraspinal tenderness. No step off deformity. Ext: Upper and lower extremities atraumatic, without tenderness, deformity, swelling or erythema. Full ROM throughout. calf pain, pitting edema. Neuro: NIH 0. AOx3. Normal speech. normal finger to nose, heel to deluna. no nystamgmus. Strength 5/5 intact throughout. No saddle anesthesia. Sensation intact to light touch. NV intact distally. Ambulating with steady gait. Psych: intermittently tearful, often avoids eye contact. Course Course Course Narrative: CBC without leukocytosis or left shift. h&h stable. chemistry without acute electrolyte abnormality requiring intervention. liver function at baseline. no ELICIA. troponin flat x2. ddimer undetectable, risk factors for PE minimal - no CTA chest warranted at this time. negative covid, flu, rsv. orthostatic vital signs are negative. UA with mild infection - states she is currently on treatment for UTI. > patient medicated with toradol with good effect. denies further chest pain. dizziness has resolved. I have watched patient ambulate with steady gait to the bathroom. > symptoms do not appear to be cardiac related. patient evaluated various times in the past for similar without significant findings. concern for anxiety aspect. > at this time I feel she is stable for discharge home with outpatient follow up. Patient has remained stable throughout ED visit today. Discussed worrisome signs and symptoms and when to return to the ED. All questions answered at this time. Patient is agreeable with disposition and stable for discharge. Medications Administered Discontinued Medications Generic Name Dose Route Start Last Admin Trade Name Freq PRN Reason Stop Dose Admin Ketorolac Tromethamine 15 mg 04/20/25 17:38 04/20/25 17:44 Ketorolac Tromethamine 15 Mg/Ml Vial IVPUSH 04/20/25 17:39 15 mg ONCE ONE Administration Medical Decision Making Medical Decision Making MDM Narrative: 54 year old Greenlandic speaking female with pmhx significant for migraine, asthma/COPD, HTN, HLD, PAD, sciatica, DM, anxiety presents to the ED today for evaluation of left sided chest pain with associated dizziness and shortness of breath x today. vital signs are stable, she is not hypoxic or tachycardic. History without high risk features (not substernal, no exertional component, not relieved with rest).?Exam without evidence of volume overload. EKG without signs of active ischemia. Given the timing of pain to ED presentation, plan to send delta troponin to evaluate for NSTEMI. Differential diagnosis also includes anemia, electrolyte abnormality, costochondritis, msk pain, pneumonia, pleurisy, orthostatic hypotension, dehydration, hypoglycemia, DKA. Unlikely ICH, CVA/TIA, cerebellar stroke Presentation not consistent with acute PE (PERC 1), pneumothorax, thoracic aortic dissection, cardiac effusion or tamponade, myocarditis, pericarditis Plan: labs, troponin, EKG, CXR, pain control, reassessment Differential Diagnosis Differential Diagnoses: The differential diagnosis associated with the presentation includes as above. Admission/Observation not indicated Lab Data MDM Lab Attestation statement: I reviewed the patient's lab results. as above. 04/20/25 14:24 04/20/25 14:24 Labs: Lab Results 04/20/25 04/20/25 04/20/25 Range/Units 14:04 14:24 15:34 WBC 7.1 (4.8-10.8) X10*3/uL RBC 3.90 L (4.20-5.50) X10*6/uL Hgb 12.5 (12.0-16.0) g/dl Hct 34.2 L (37.0-47.0) % MCV 87.7 (80.0-98.0) fL MCH 32.1 (27.0-33.0) pg MCHC 36.5 H (31.0-35.0) g/dl RDW 12.7 (11.0-16.0) % Plt Count 245 (160-400) X10*3/uL MPV 10.1 (9.4-12.3) fL Immature Gran % (Auto) 0.1 (0.0-0.4) % Neut % (Auto) 62.3 (45-73) % Lymph % (Auto) 29.7 (20-40) % Hays % (Auto) 5.8 (2-11) % Eos % (Auto) 1.5 (0-4) % Baso % (Auto) 0.6 (0-2) % Lymph # (Auto) 2.1 (1.2-4.9) X10*3/uL Hays # (Auto) 0.4 (0.1-1.2) X10*3/uL Eos # (Auto) 0.1 (0.0-0.4) X10*3/uL Baso # (Auto) 0.0 (0.0-0.2) X10*3/uL Abs Immat Gran (auto) 0.01 (0.00-0.03) X10*3/uL Absolute Neuts (auto) 4.4 (2.0-8.3) x10*3/uL Absolute Nucleated RBC 0.000 (0.0-0.012) X10*3/uL Nucleated RBC % (auto) 0.0 (0.0-0.2) /100WBC D-Dimer High Sensitivty < 150 NG/ML Sodium 140 (135-145) mmol/L Potassium 3.9 (3.3-5.1) mmol/L Chloride 108 (96-108) mmol/L Carbon Dioxide 24 (22-29) mmol/L Anion Gap 12 (12-20) BUN 12 (9-16) mg/dL Creatinine 0.66 (0.5-1.4) mg/dL Estim Creat Clear Calc 120.2 Estimated GFR > 60 POC Glucose 103 99 (60-115) mg/dL Random Glucose 104 (60-115) mg/dL Calcium 9.6 (8.4-10.2) mg/dL Magnesium 2.0 (1.6-2.6) mg/dL Total Bilirubin 0.3 (0.0-1.0) mg/dL AST 29 (5-31) U/L ALT 43 H (0-31) U/L Alkaline Phosphatase 189 H (39-117) U/L Troponin I High Sens < 2.7 (<3.5-17.0) ng/L Total Protein 7.2 (6.5-8.0) g/dL Albumin 4.3 (3.5-5.0) g/dL Urine Color Urine Appearance Urine pH (5.0-9.0) Ur Specific Hastings (1.005-1.025) Urine Protein (Neg-Trace) mg/dL Urine Glucose (UA) (Negative) mg/dL Urine Ketones (Negative) mg/dL Urine Blood (Negative) Urine Nitrite (Negative) Ur Leukocyte Esterase (Negative) Urine RBC (0-2) /HPF Urine WBC (0-5) /HPF Ur Squamous Epith Cells (0-2) /HPF Urine Bacteria (None Seen) Hyaline Casts (0-2) /LPF Influenza Type A (PCR) NEGATIVE (Negative) Influenza Type B (PCR) NEGATIVE (Negative) RSV RNA Qual (PCR) NEGATIVE (Negative) SARS-CoV-2 RNA (RT-PCR) NEGATIVE (Negative) 04/20/25 04/20/25 04/20/25 Range/Units 16:04 17:43 17:44 WBC (4.8-10.8) X10*3/uL RBC (4.20-5.50) X10*6/uL Hgb (12.0-16.0) g/dl Hct (37.0-47.0) % MCV (80.0-98.0) fL MCH (27.0-33.0) pg MCHC (31.0-35.0) g/dl RDW (11.0-16.0) % Plt Count (160-400) X10*3/uL MPV (9.4-12.3) fL Immature Gran % (Auto) (0.0-0.4) % Neut % (Auto) (45-73) % Lymph % (Auto) (20-40) % Hays % (Auto) (2-11) % Eos % (Auto) (0-4) % Baso % (Auto) (0-2) % Lymph # (Auto) (1.2-4.9) X10*3/uL Hays # (Auto) (0.1-1.2) X10*3/uL Eos # (Auto) (0.0-0.4) X10*3/uL Baso # (Auto) (0.0-0.2) X10*3/uL Abs Immat Gran (auto) (0.00-0.03) X10*3/uL Absolute Neuts (auto) (2.0-8.3) x10*3/uL Absolute Nucleated RBC (0.0-0.012) X10*3/uL Nucleated RBC % (auto) (0.0-0.2) /100WBC D-Dimer High Sensitivty NG/ML Sodium (135-145) mmol/L Potassium (3.3-5.1) mmol/L Chloride (96-108) mmol/L Carbon Dioxide (22-29) mmol/L Anion Gap (12-20) BUN (9-16) mg/dL Creatinine (0.5-1.4) mg/dL Estim Creat Clear Calc Estimated GFR POC Glucose 94 (60-115) mg/dL Random Glucose (60-115) mg/dL Calcium (8.4-10.2) mg/dL Magnesium (1.6-2.6) mg/dL Total Bilirubin (0.0-1.0) mg/dL AST (5-31) U/L ALT (0-31) U/L Alkaline Phosphatase (39-117) U/L Troponin I High Sens < 2.7 (<3.5-17.0) ng/L Total Protein (6.5-8.0) g/dL Albumin (3.5-5.0) g/dL Urine Color Yellow Urine Appearance Clear Urine pH 6.0 (5.0-9.0) Ur Specific Hastings 1.010 (1.005-1.025) Urine Protein Negative (Neg-Trace) mg/dL Urine Glucose (UA) Negative (Negative) mg/dL Urine Ketones Negative (Negative) mg/dL Urine Blood Trace (Negative) Urine Nitrite Negative (Negative) Ur Leukocyte Esterase Moderate (2+) H (Negative) Urine RBC 0-2 (0-2) /HPF Urine WBC 21-50 H (0-5) /HPF Ur Squamous Epith Cells 0-2 (0-2) /HPF Urine Bacteria None Seen (None Seen) Hyaline Casts 11-20 (0-2) /LPF Influenza Type A (PCR) (Negative) Influenza Type B (PCR) (Negative) RSV RNA Qual (PCR) (Negative) SARS-CoV-2 RNA (RT-PCR) (Negative) Independent Interpretation I performed an independent interpretation of an: EKG Interpretation: EKG showing NSR with rate of 100 bpm, no acute ischemic changes or st elevations seconds ekg showing NSR with rate of 80 bpm, no acute ischemic changes or st elevations Radiology Impression Discussion of test interpretation with radiology: I have reviewed the radiologist's reading. Independent Historian Clinical information obtained from an independent historian. History obtained from or confirmed by: EMS External Record Review External record reviewed: Inpatient record, Office record, Outpatient record, Prior outpatient labs, Prior outpatient radiology, Primary care record and Outside ED record Prescription Management I considered prescription management with: Pain Medication Chronic Conditions Patient?s care impacted by: Diabetes and Hypertension Social Determinants Patient?s care significantly limited by Social Determinants of Health including: Other Social Determinant of Health Critical Care Time Critical Care Time Critical Care Time: No Discharge Plan Discharge Clinical Impression: Atypical chest pain Patient Disposition: Home, Self-Care Instructions: Noncardiac Chest Pain (ED) Additional Instructions: You were evaluated in the Emergency Department today for chest pain. Your evaluation has shown no signs of medical conditions requiring emergent intervention at this time. I recommend that you follow up with your primary care provider or your remote coders as soon as possible for further testing as an outpatient. If you do not have one, a referral has been provided. Please call them to make an appointment, they will not call you. Return to the Emergency Department if you experience worsening or uncontrolled chest pain, shortness of breath, lightheadedness, feeling faint, nausea, vomiting, or any other concerning symptoms. Prescriptions: No Action ropinirole 1 mg Tablet 1 mg PO BEDTIME insulin glargine [Lantus U-100 Insulin] 100 unit/mL Solution 26 unit SUBCUT BEDTIME cetirizine [Zyrtec] 10 mg Tablet 10 mg PO DAILY prazosin 1 mg Capsule 1 mg PO BEDTIME mirtazapine 45 mg Tablet 45 mg PO BEDTIME PRN (Reason: Insomnia) montelukast [Singulair] 10 mg Tablet 10 mg PO BEDTIME bupropion HCl [Wellbutrin XL] 150 mg Tablet Extended Release 24 Hr 150 mg PO DAILY tiotropium bromide [Spiriva with HandiHaler] 18 mcg Capsule, W/Inhalation Device 1 cap INHALATION DAILY duloxetine [Cymbalta] 60 mg Capsule,Delayed Release(Dr/Ec) 60 mg PO DAILY fenofibrate micronized 134 mg capsule 1 tab PO DAILY@1800 fluticasone propionate 50 mcg/actuation spray,suspension 2 spray intranasal DAILY albuterol sulfate 2.5 mg /3 mL (0.083 %) solution for nebulization 2.5 mg inhalation Q4H PRN (Reason: wheezing) trazodone 50 mg tablet 50 mg PO BEDTIME PRN (Reason: Insomnia) lisinopril 20 mg tablet 20 mg PO DAILY propranolol 40 mg tablet 40 mg PO BID baclofen 10 mg tablet 10 mg PO TID pseudoephedrine HCl [Sudogest] 30 mg tablet 30 mg PO Q4H PRN (Reason: congestion) gabapentin 100 mg capsule 100 mg PO TID albuterol sulfate [Ventolin HFA] 90 mcg/actuation HFA aerosol inhaler 2 puff INHALATION Q4H PRN (Reason: Shortness Of Breath Or Wheezing) clotrimazole 1 % cream 1 appl topical Q12H PRN (Reason: Rash) diclofenac sodium 1 % gel 2 g topical QID PRN (Reason: pain) Trulicity 1.5 mg/0.5 mL pen injector 1.5 mg subcut TH@0900 famotidine 20 mg Tablet 20 mg PO DAILY Qty: 30 0RF tramadol 50 mg tablet 50 mg PO BID PRN (Reason: pain) Qty: 7 0RF cyclobenzaprine 10 mg tablet 10 mg PO TID PRN (Reason: muscle spasm) Qty: 10 0RF ketorolac 10 mg tablet 10 mg PO TID PRN (Reason: pain) 5 Days Qty: 12 0RF cefuroxime axetil 250 mg tablet 250 mg PO BID Qty: 9 0RF cyclobenzaprine 10 mg tablet 10 mg PO TID PRN (Reason: muscle spasm) Qty: 10 0RF ondansetron 4 mg tablet,disintegrating 4 mg PO Q8H PRN (Reason: nausea and vomiting) Qty: 7 0RF sumatriptan succinate [Imitrex] 50 mg tablet 50 mg PO Q2H PRN (Reason: migraine headache) Qty: 10 0RF Rx Instructions: do not exceed 2 doses per 24 hrs jjxszgypcl-mivrpccqmlyht-eppm 50-325-40 mg tablet 1 tab PO Q6H PRN (Reason: haeadace) Qty: 20 0RF cefuroxime axetil 250 mg tablet 250 mg PO BID 7 Days Qty: 14 0RF atorvastatin [Lipitor] 40 mg tablet 40 mg PO DAILY cholecalciferol (vitamin D3) 50 mcg (2,000 unit) capsule 50 mcg PO DAILY hydrocodone-acetaminophen 5-325 mg tablet 1 tab PO Q4-6H PRN (Reason: pain) Qty: 30 0RF Rx Instructions: Partial Fill upon patient request. Referrals: Wojciech Kinsey MD [Primary Care Provider, Medical] Interventions: ED Discharge Assessment Last Done: 04/20/25 18:43 Discharge Date/Time: 04/20/25 18:49 Print Language: Greenlandic
[2025-04-20 14:08] LABS: Glucose, Whole Blood 103 mg/dL (60-115)
--- OUTSIDE RECORDS SUMMARY | 2025-04-20 14:17 | XMS_ITS | Encounter Summary ---
Author Organization [employer] Address [address] [place] [address] Care Team Providers Care Service Specialist Name Role Phone Wojciech Li MD Primary Care Provide r Sheree Jarvis RN Unavailable [phone] Josie Edwards Unavailable Encounter Details Date Type Department Care Team (Latest Contact Info) Description 04/20/2025 Travel Social History Tobacco Use Types Packs/Day Years Used Date Smoking Tobacco: Every Day Cigarettes Passive Smoke Exposure: Current Smokeless Tobacco: Never Alcohol Use Standard Drinks/Week Comments Not Currently 0 (1 standard drink = 0.6 oz pur e alcohol) Depression Answer Date Recorded Patient Health Questionnaire-9 Score 23 03/31/2025 Patient Health Questionnaire-9 Score 23 03/31/2025 Last PHQ-9: Questionnaire Data Not on file 0 03/31/2025 Housing Stability Answer Date Recorded What is your housing situation today? I am not s ure 04/11/[address] you li ve. Do you have problems with any of the following? None of the above 04/11/2025 Food Insecurity Answer Date Recorded Within the [...] from getting things needed for daily living? Yes, it has kept me from medical appointments or getting medications. 04/11/2025 Utilities Answer Date Recorded In the past 12 months, has t he electric, gas, oil or water company threatened to shut off services in your home? No 09/14/2024 Depression Answer Date Recorded Patient Health Questionnaire-2 Score 6 03/31/2025 Internet Access Answer Date Recorded Internet Access Q1 Yes 04/11/2025 Internet Access Q2 Not on file 04/11/2025 Comments No Sex and Gender Information Value Date Recorded Sex Assigned at Female 08/26/2022 10:16 AM EDT Legal Sex Female 10:16 AM EDT Gender Identity Female 08/26/2022 10:16 AM EDT Sexual Orientation Straight 08/26/2022 10 :16 AM EDT documented as of this encounter Plan of Treatment Upcoming Encounters Date Type Department Care Team ([facility] st Contact Info) Description 05/17/2025 11:00 AM EDT Office Visit [facility] [address] [place] [address] documented as of this encounter Visit Diagnoses Not on filedocumented in this encounter Additional Health Concerns Assessment Noted Time PHQ-9 Depression Total Score: 23 025 9:37 AM EDT documented as of this encounter Care Teams Service Specialist Relationship Specialty Start Date End Date Wojciech Li MD [address] [place] [address] PCP - General Internal Medicine 04/12/24 Sheree Jarvis RN [address] [place] [phone] Registered Nurse Family Medicine 03/28/25 Josie Edwards 03/28/25 documented as of this encounter
[2025-04-20 14:37] LABS: MANUAL DIFF FLAG NO
[2025-04-20 14:38] LABS: Basophils Percent Auto 0.6 % (0-2); Eosinophils Absolute Auto 0.1 X10*3/uL (0.0-0.4); Eosinophils Percent Auto 1.5 % (0-4); Hematocrit 34.2 % (37.0-47.0); Hemoglobin 12.5 g/dl (12.0-16.0); Imm Gran Abs Auto 0.01 X10*3/uL (0.00-0.03); Imm Gran Pct Auto 0.1 % (0.0-0.4); Lymphocytes Absolute Auto 2.1 X10*3/uL (1.2-4.9); Lymphocytes Percent Auto 29.7 % (20-40); Mean Corpuscular HGB Conc 36.5 g/dl (31.0-35.0); Mean Corpuscular Hemoglobin 32.1 pg (27.0-33.0); Mean Corpuscular Volume 87.7 fL (80.0-98.0); Mean Platelet Volume 10.1 fL (9.4-12.3); Monocytes Absolute Auto 0.4 X10*3/uL (0.1-1.2); Monocytes Percent Auto 5.8 % (2-11); Neutrophils Absolute Auto 4.4 x10*3/uL (2.0-8.3); Neutrophils Percent Auto 62.3 % (45-73); Platelet Count 245 X10*3/uL (160-400); Red Cell Distribution Width 12.7 % (11.0-16.0); White Blood Count 7.1 X10*3/uL (4.8-10.8)
[2025-04-20 14:56] LABS: Alanine Aminotransferase 43 U/L (0-31); Albumin Level 4.3 g/dL (3.5-5.0); Alkaline Phosphatase 189 U/L (39-117); Anion Gap 12 (12-20); Aspartate Amino Transferase 29 U/L (5-31); Bilirubin Total 0.3 mg/dL (0.0-1.0); Blood Urea Nitrogen 12 mg/dL (9-16); Calcium 9.6 mg/dL (8.4-10.2); Carbon Dioxide 24 mmol/L (22-29); Chloride 108 mmol/L (96-108); Creatinine Clr Calc Pharmacy 120.2; Estimated Glomerular Filt Rate > 60; Glucose Random 104 mg/dL (60-115); Potassium 3.9 mmol/L (3.3-5.1); Sodium 140 mmol/L (135-145); Total Protein 7.2 g/dL (6.5-8.0)
[2025-04-20 15:00] LABS: Troponin-I High Sensitivity < 2.7 ng/L (<3.5-17.0)
[2025-04-20 15:06] LABS: D Dimer High Sensitivity < 150 NG/ML
[2025-04-20 15:19] LABS: Influenza A PCR NEGATIVE (Negative); Influenza B PCR NEGATIVE (Negative); Resp Syncy Virus RNA Qual PCR NEGATIVE (Negative); SARS COV2 PCR INHOUSE NEGATIVE (Negative)
[2025-04-20 15:38] LABS: Glucose, Whole Blood 99 mg/dL (60-115)
[2025-04-20 16:15] LABS: Appearance Urine Clear; Color Urine Yellow; Glucose Urine UA Negative (Negative); Leukocyte Esterase Urine Moderate (2+) (Negative); Nitrite Urine Negative (Negative); UMIC TRIGGER UACC YES; Urine Blood Trace (Negative); Urine Ketones Negative (Negative); Urine Protein Negative (Neg-Trace)
[2025-04-20 16:32] LABS: Bacteria Urine None Seen (None Seen); RBC Urine 0-2 /HPF (0-2); Squamous Epithelial Cell Urine 0-2 /HPF (0-2); UACC Culture Trigger YES; WBC Urine 21-50 /HPF (0-5)
[2025-04-20] MEDS: Ketorolac Tromethamine 15 MG/ML VIAL IVPUSH (17:44)
[2025-04-20 17:48] LABS: Glucose, Whole Blood 94 mg/dL (60-115)
[2025-04-20 18:13] LABS: Troponin-I High Sensitivity < 2.7 ng/L (<3.5-17.0)
== END 2025-04-20 18:49 | disposition home or self-care (01) ==
PROVIDERS: Physician Assistant Medical; Emergency Provider Emergency Medicine; PCP Internal Medicine
DX: R07.89 Other chest pain (principal); I10 Essential (primary) hypertension; E11.9 Type 2 diabetes mellitus without complications; F17.210 Nicotine dependence, cigarettes, uncomplicated; Z79.4 Long term (current) use of insulin; Z79.899 Other long term (current) drug therapy; Z03.818 Encounter for observation for suspected exposure to other biological agents ruled out
CPT/HCPCS: 0241U; 36415; 80053; 81001; 82947; 83735; 84484; 85025; 85379; 87086; 93005; 96374; 99284; J1885

== ENCOUNTER → 2025-04-20 11:52 | Outpatient (BNV) | payer MEDICAID, SELFPAY | PROVIDERS: Emergency Provider Emergency Medicine; PCP Internal Medicine; Visit Provider Internal Medicine | DX: R07.9 Chest pain, unspecified (principal); R55 Syncope and collapse | CPT/HCPCS: 93010 ==

== ENCOUNTER 2025-04-21 09:59 | Outpatient (REF) | payer MEDICAID, SELFPAY ==
--- NOTE | ~2025-04-21 | US_ITS ---
CLINICAL HISTORY: persistent left flank pain; r o kidney stone US renal Comparison: None Findings: Right kidney 12.1 cm length. No significant focal abnormality. 1.8 cm lower pole cyst. Left kidney 13.4 cm length. No significant focal abnormality. 0.9 cm lower pole cyst. No bilateral hydronephrosis. Normal bilateral renal echogenicity. Impression: No significant abnormalities. This document has been electronically signed by: Paolo Francis MD on 04/21/2025 19:29:39
--- OUTSIDE RECORDS SUMMARY | 2025-04-21 11:27 | XMS_ITS | Encounter Summary ---
Author Organization [employer] Address [address] [place] [address] Care Team Providers Care Printing Table Hand Name Role Phone Wojciech Li MD Primary Care Provide r Sheree Jarvis RN Unavailable [phone] Josie Edwards Unavailable Encounter Details Date [...] Care Team (Late st Contact Info) Description 05/17/2025 11:00 AM EDT Office Visit [address] [address] 06/30/2025 11:15 AM EDT Office Visit [address] [address] Wojciech Li MD [address] [place] [id number] documented as of this encounter Visit Diagnoses Not on filedocumented in this encounter Additional Health Concerns Assessment Noted Time PHQ-9 Depression Total Score: 23 025 9:37 AM EDT documented as of this encounter Care Teams Printing Table Hand Relationship Specialty Start Date End Date Wojciech Li MD [address] [place] [address] PCP - General Internal Medicine 04/12/24 Sheree Jarvis RN [address] [place] [id number] Registered Nurse Family Medicine 03/28/25 Josie Edwards 03/28/25 documented as of this encounter
== END 2025-04-21 10:00 | disposition home or self-care (01) ==
LOC: HO.US 09:59
PROVIDERS: PCP Internal Medicine; Visit Provider Nurse Practitioner
DX: R10.9 Unspecified abdominal pain (principal)
CPT/HCPCS: 76775

== ENCOUNTER → 2025-04-21 10:00 | Outpatient (BNV) | payer MEDICAID, SELFPAY | PROVIDERS: PCP Internal Medicine; Visit Provider Radiology Diagnostic Radiology | DX: R10.9 Unspecified abdominal pain (principal) | CPT/HCPCS: 76775 ==

== ENCOUNTER → 2025-04-27 00:30 | Outpatient (BNV) | payer MEDICAID, SELFPAY | PROVIDERS: Visit Provider Radiology Diagnostic Radiology | DX: R91.8 Other nonspecific abnormal finding of lung field (principal); R51.9 Headache, unspecified; R06.00 Dyspnea, unspecified | CPT/HCPCS: 70450; 71045; 71275 ==

== ENCOUNTER 2025-04-27 00:35 | Emergency (ER) | payer MEDICAID, SELFPAY ==
[2025-04-27] VITALS (8 sets, daily range): BP systolic 119–149; BP diastolic 64–83; PULSE 71–90; RESP 15–24; TEMP 36.6–36.7; O2SAT 92–99; BMI 32.1
--- NOTE | 2025-04-27 | ECG_ITS ---
Test Reason : sob Blood Pressure : */* mmHG Vent. Rate : 79 BPM Atrial Rate : 79 BPM P-R Int : 140 ms QRS Dur : 84 ms QT Int : 402 ms P-R-T Axes : 16 50 21 degrees QTcB Int : 460 ms Normal sinus rhythm Normal ECG When compared with ECG of 20-Apr-2025 13:59, No significant change was found Referred By: Generic ED Physician Electronically Signed By: KAMILLE ALVAREZ MD
--- NOTE | ~2025-04-27 | XR_ITS ---
CLINICAL HISTORY: DYSPNEA EXAM: One view chest x-ray COMPARISON: None FINDINGS: Normal cardiac, mediastinal, and hilar contours. Normal heart size. No pleural effusion or pneumothorax. Lungs are clear. No acute bone finding. IMPRESSION: 1. No acute cardiopulmonary process demonstrated. This document has been electronically signed by: Geovany Reid MD on 04/27/2025 01:52:24
--- NOTE | ~2025-04-27 | CT_ITS ---
CLINICAL HISTORY: Acute Onset Headache CT head without contrast Comparison: CT/SR - CT HEAD/BRAIN WO IV CON - 04/02/25 13:01 EDT Findings: There is no acute intracranial hemorrhage. Ventricles are of normal size and shape. No mass effect or midline shift is present. The quiros-white matter differentiation appears normal. The visualized portions of the orbits, paranasal sinuses, and mastoids are unremarkable. No fractures are identified. IMPRESSION: No acute intracranial abnormality. This document has been electronically signed by: Joel Liu MD on 04/27/2025 03:45:32
--- NOTE | ~2025-04-27 | CT_ITS ---
CLINICAL HISTORY: SOB; Pleurisy; Hypoxia CT angiography chest with contrast. 3D Postprocessing. Comparison: None Findings: There is no pulmonary embolism. Heart size is within normal limits. There is no pericardial effusion. There is coronary artery calcification. Thoracic aorta is normal in diameter without dissection. There are no enlarged lymph nodes. There is minimal bibasilar atelectasis. There is mild bilateral mosaic attenuation likely due to mild air trapping. There are a few tiny bilateral pulmonary nodules measuring up to 3 mm. For reference, nodules are seen in the left upper lobe on series 17 image 55 and right upper lobe on image 53 and image 51. Trachea and central bronchi are widely patent. There is no acute fracture or suspicious lytic or sclerotic lesion. Limited images of the upper abdomen demonstrate no acute findings. There is partially visualized mild splenomegaly. Patient is status post cholecystectomy. IMPRESSION: 1. No pulmonary embolism. 2. Few tiny bilateral pulmonary nodules measuring up to 3 mm. Follow-up recommendations based on Fleischner Society guidelines as below: Multiple solid lung nodules < 6 mm: Follow up management based on most suspicious nodule. In a low-risk patient, no routine follow-up imaging is recommended. In a high-risk patient, a non-contrast Chest CT at 12 months is optional. If performed and the nodule is stable at 12 months, no further follow-up is recommended. These guidelines do not apply to patients younger than 35 years, immunocompromised patients, and patients with cancer. F/U in patients with significant comorbidities as clinically warranted. For lung cancer screening, adhere to Lung-RADS guidelines. Reference: Radiology. 2017 Apr; 284(1):228-24. This document has been electronically signed by: Joel Liu MD on 04/27/2025 03:50:16
--- OUTSIDE RECORDS SUMMARY | 2025-04-27 01:03 | XMS_ITS | Clinical Summary ---
Author Organization [facility] Address [address] [place] [address] Phone Care Team Providers Care Dental Laboratory Technology Teacher Name Role Phone Dayanara Olmstead DO Primary Care Provider [phone] Allergies No known active allergies Medications albuterol [...] 06/25/2024 Bipolar affective disorder, currently depressed, moderate ([facility] V24, [facility] V28) 06/25/2024 Chronic low back pain 06/25/2024 Chronic pain of both knees 06/25/2024 Chronic tension type headache 06/25/2024 COPD (chronic obstructive pu lmonary disease) ([facility] V24, [facility] V28) 06/25/2024 Cyst of ovary 06/25/2024 Depressive disorder 06/25/2024 HTN (hypertension) 06/25/2024 IBS (irritable bowel syndrome) 06/25/2024 Inflammatory pain of left heel 06/25/2024 Lower abdominal pain 06/25/2024 Mixed hyperlipidemia 06/25/2024 Moderate persistent asthma 06/25/2024 Nonintractable chronic migraine 06/25/2024 Obesity 06/25/2024 Osteoarthritis 06/25/2024 Periodic limb movement disorder 06/25/2024 Shoulder pain 06/25/2024 T2DM (type 2 diabetes mellitus) ([facility] V24, [facility] V28) 06/25/2024 Urinary incontinence 06/25/2024 Social History Tobacco [...] Care Team (Late st Contact Info) Description 06/09/2025 9:45 AM EDT Office Visit Orthopedic Surgery - [place] [address] [phone] Herman Oglesby, DPM [address] [id number] Health Maintenance Due Date Last Done Comments [...] 12/31/2022, 09/19/2021, 02/05/2021, Additional history exists Diabetes: Annual Urine Albumin-Creatinine Ratio (uACR) 08/09/2024 Diabetes: Blood Sugar Control Test (HGBA1C) 07/16/2025 01/13/2025, 09/16/2024, 09/14/2024 Depression Screening 09/14/2025 09/14/2024 DTaP,Tdap,and Td Vaccines (2 - Td or Tdap) 11/30/2025 11/30/2015 Diabetes: Annual GFR (Glomerular Filtration Rate) 12/19/2025 12/19/2024, 12/05/2024, 09/16/2024 Hypertension/CHF/CAD Annual BMP Blood Test 12/19/2025 12/19/2024, 12/05/2024, 09/16/2024 Cholesterol Screening (Lipid Panel) 09/16/2029 09/16/2024 Influenza Vaccine Completed 09/28/2024, , 09/18/2021, Additional [...] age to complete this topic Meningococcal B Vaccine Aged Out No l onger eligible based on patient's age to complete this topic RSV Immunization Patients Under 20 months Aged Out No longer eligible based on patient's age to complete this topic Varicella Vaccines Aged Out No longer eligible based on patient's age to complete this topic Insurance MEDICAID - [place] Care Teams Dental Laboratory Technology Teacher Relationship Specialty Start Date End Date Dayanara Olmstead DO [address] [place], [place] PCP - General 04/02/24
[2025-04-27 01:18] LABS: MANUAL DIFF FLAG NO
[2025-04-27 01:20] LABS: Hematocrit 33.1 % (37.0-47.0); Hemoglobin 12.4 g/dl (12.0-16.0); Imm Gran Abs Auto 0.01 X10*3/uL (0.00-0.03); Imm Gran Pct Auto 0.1 % (0.0-0.4); Lymphocytes Absolute Auto 2.9 X10*3/uL (1.2-4.9); Mean Corpuscular HGB Conc 37.5 g/dl (31.0-35.0); Mean Corpuscular Hemoglobin 32.7 pg (27.0-33.0); Mean Corpuscular Volume 87.3 fL (80.0-98.0); NRBC Abs Auto 0.000 X10*3/uL (0.0-0.012); NRBC Pct Auto 0.0 /100WBC (0.0-0.2); Platelet Count 294 X10*3/uL (160-400); Red Blood Count 3.79 X10*6/uL (4.20-5.50); White Blood Count 7.9 X10*3/uL (4.8-10.8)
--- NOTE | 2025-04-27 01:30 | PC.NURSE ---
dexcom reading 260. pt reports she didnt use lantus today because they were low, ~100 before bed
[2025-04-27 01:38] LABS: Alanine Aminotransferase 28 U/L (0-31); Albumin Level 4.3 g/dL (3.5-5.0); Alkaline Phosphatase 164 U/L (39-117); Anion Gap 15 (12-20); Aspartate Amino Transferase 25 U/L (5-31); Blood Urea Nitrogen 15 mg/dL (9-16); Calcium 9.1 mg/dL (8.4-10.2); Carbon Dioxide 21 mmol/L (22-29); Chloride 106 mmol/L (96-108); Creatinine Clr Calc Pharmacy 89.2; Estimated Glomerular Filt Rate > 60; Potassium 3.4 mmol/L (3.3-5.1); Sodium 139 mmol/L (135-145); Total Protein 7.1 g/dL (6.5-8.0)
--- NOTE | 2025-04-27 01:40 | PC.NURSE ---
pt now reporting she has a DVT in R leg, dx 2weeks ago?
[2025-04-27 01:45] LABS: Troponin-I High Sensitivity < 2.7 ng/L (<3.5-17.0)
[2025-04-27 02:13] LABS: Resp Syncy Virus RNA Qual PCR NEGATIVE (Negative); SARS COV2 PCR INHOUSE NEGATIVE (Negative)
--- NOTE | 2025-04-27 02:32 | ED.SOB ---
HPI - SOB/Dyspnea General Chief Complaint: Dyspnea Stated Complaint: COPD Time Seen by Provider: 04/27/25 01:33 Source: patient Mode of arrival: EMS Limitations: language barrier (Political Theory Professor used) History of Present Illness ED Provider: Marcus VARGAS HPI Narrative: The patient is a 54-year-old female presenting to the ED with multiple complaints. Patient's primary complaint is shortness of breath which began tonight however patient is also reporting headache, nausea, anxiety, and exacerbation of her chronic bilateral lower extremity pain. The patient has been seen multiple times in this ED in the past month for evaluation, initially was seen on 04/02 at which time she suffered a syncopal episode while in the triage process, was diagnosed with a UTI, and discharged to follow up with PCP. The patient returned for chest pain, workup was benign and patient was discharged 12 with PCP. Patient returns tonight reporting she noted her continuous glucose monitor was reading low last night, patient did not take her insulin and today noted her blood sugar in the 200s, became anxious about her blood sugar being elevated due to lack of insulin and became short of breath. Patient reports following her shortness of breath she developed an associated headache with nausea and worsening anxiety, prompting EMS activation. The patient advises she was also diagnosed a few months ago with a blood clot in her left thigh, however states she is not currently on any anticoagulation other than aspirin. Even with the use of translator interpreter with the patient is unable to clarify if she suffered from thrombophlebitis, varicose veins, or an actual DVT. The patient states she does not have a IVC filter. The patient denies any recurrent fall or other trauma since the initial syncopal episode on 04/02. During patient interviewed the patient repeatedly advised she was too tired to answer questions. Related Data Home Medications ?Medication ?Instructions ?Recorded ?Confirmed bupropion HCl 150 mg 24 hr tablet, 150 mg PO DAILY 10/06/20 05/23/24 extended release (Wellbutrin XL) cetirizine 10 mg tablet (Zyrtec) 10 mg PO DAILY 10/06/20 05/23/24 duloxetine 60 mg capsule,delayed 60 mg PO DAILY 10/06/20 05/23/24 release (Cymbalta) insulin glargine 100 unit/mL 26 unit subcut BEDTIME 10/06/20 05/23/24 subcutaneous solution (Lantus U-100 Insulin) mirtazapine 45 mg tablet 45 mg PO BEDTIME PRN Insomnia 10/06/20 05/23/24 montelukast 10 mg tablet 10 mg PO BEDTIME 10/06/20 05/23/24 (Singulair) prazosin 1 mg capsule 1 mg PO BEDTIME 10/06/20 05/23/24 ropinirole 1 mg tablet 1 mg PO BEDTIME 10/06/20 05/23/24 tiotropium bromide 18 mcg capsule 1 cap inhalation DAILY 10/06/20 05/23/24 with inhalation device (Spiriva with HandiHaler) fenofibrate micronized 134 mg 1 tab PO DAILY@1800 05/24/21 05/23/24 capsule fluticasone propionate 50 2 spray intranasal DAILY 05/24/21 05/23/24 mcg/actuation nasal spray,suspension albuterol sulfate 2.5 mg/3 mL 2.5 mg inhalation Q4H PRN wheezing 05/23/24 05/23/24 (0.083 %) solution for nebulization albuterol sulfate 90 mcg/actuation 2 puff inhalation Q4H PRN 05/23/24 05/23/24 aerosol inhaler (Ventolin HFA) Shortness Of Breath Or Wheezing baclofen 10 mg tablet 10 mg PO TID muscle spasm 05/23/24 05/23/24 clotrimazole 1 % topical cream 1 appl topical Q12H PRN Rash 05/23/24 05/23/24 diclofenac sodium 1 % topical gel 2 g topical QID PRN pain 05/23/24 05/23/24 dulaglutide 1.5 mg/0.5 mL 1.5 mg subcut TH@0900 05/23/24 05/23/24 subcutaneous pen injector (Trulicity) gabapentin 100 mg capsule 100 mg PO TID 05/23/24 05/23/24 lisinopril 20 mg tablet 20 mg PO DAILY 05/23/24 05/23/24 propranolol 40 mg tablet 40 mg PO BID 05/23/24 05/23/24 pseudoephedrine HCl 30 mg tablet 30 mg PO Q4H PRN congestion 05/23/24 05/23/24 (Sudogest) trazodone 50 mg tablet 50 mg PO BEDTIME PRN Insomnia 05/23/24 05/23/24 atorvastatin 40 mg tablet (Lipitor) 40 mg PO DAILY 04/19/25 cholecalciferol (vitamin D3) 50 50 mcg PO DAILY 04/19/25 mcg (2,000 unit) capsule Previous Rx's ?Medication ?Instructions ?Recorded ondansetron 4 mg disintegrating 4 mg PO Q8H PRN nausea and 05/16/24 tablet vomiting #7 tabs famotidine 20 mg tablet 20 mg PO DAILY #30 tabs 05/24/24 hydrocodone 5 mg-acetaminophen 325 1 tab PO Q4-6H PRN pain #30 tabs 06/23/24 mg tablet [id number]-fjlajyuneevrc-athgvkej 1 tab PO Q6H PRN haeadace #20 tabs 12/05/24 50 mg-325 mg-40 mg tablet sumatriptan succinate 50 mg tablet 50 mg PO Q2H PRN migraine headache 12/05/24 (Imitrex) #10 tabs cyclobenzaprine 10 mg tablet 10 mg PO TID PRN muscle spasm #10 12/19/24 tabs tramadol 50 mg tablet 50 mg PO BID PRN pain #7 tabs 12/19/24 cefuroxime axetil 250 mg tablet 250 mg PO BID #9 tabs 12/29/24 cyclobenzaprine 10 mg tablet 10 mg PO TID PRN muscle spasm #10 12/29/24 tabs ketorolac 10 mg tablet 10 mg PO TID PRN pain 5 days #12 12/29/24 tabs cefuroxime axetil 250 mg tablet 250 mg PO BID 7 days #14 tabs 04/02/25 Allergies Allergy/AdvReac Type Severity Reaction Status Date / Time ENVIRONMENTAL Allergy Mild Dry Eye Uncoded 04/27/25 00:44 Review of Systems Review of Systems: Yes all other systems are reviewed and are negative [facility] Past Medical History Medical History Hemiplegic migraine HLD (hyperlipidemia) HTN (hypertension) Migraines Sciatica Asthma COPD (chronic obstructive pulmonary disease) Diabetes Surgical History Hx of colonoscopy History of esophagogastroduodenoscopy (EGD) Hx laparoscopic cholecystectomy History of ear surgery H/O: hysterectomy Family History Family History Sister Migraine Social History Social History Household Members: None Housing: Apartment Do you presently have visiting nurse or other home services: No Alcohol intake: never Patient Tobacco Use Status: Current everyday Tobacco user Tobacco use type: Cigarette Cigarette Packs Per Day: 0.4 Cigarettes Per Day: 7 Years Smoked: 20 Smoked in Last 30 Days: Yes Second Hand Smoke Exposure: Yes Use of substances other than those prescribed or required for medical reasons: No Advance Directives: Yes Advance Directives on File: Yes Advance Directives Date on File: 05/25/24 Patient : No service: No Current occupational status: other Physical Exam Vital Signs: Vital Signs: Last Vital Signs Temp 98.1 F 04/27/25 00:40 Pulse 75 04/27/25 04:39 Resp 18 04/27/25 04:39 BP 149/78 H 04/27/25 04:39 Pulse Ox 94 04/27/25 04:39 O2 Del Method Room Air 04/27/25 04:39 BMI result Body Mass Index 32.1 CONSTITUTIONAL: The patient appears fatigued but otherwise well nourished and in no acute distress. Vital signs as documented. HEAD: Atraumatic, normocephalic. EYES: EOMs grossly intact, pupils equal, conjunctiva clear, no exudate. ENT: Nares patent, no discharge. Airway patent, no audible stridor, visible mucosa is pink and moist without noted lesions. NECK: Trachea is midline, no obvious masses or gross abnormalities. CHEST: Symmetric movement, normal appearance. LUNGS: LS present and CTAB, bilateral basilar rhonchi versus rales noted. Non-labored work of breathing. CARDIAC: Regular Rhythm, S1/S2 appreciated, no murmurs, rubs or gallops. ABDOMEN: Abdomen soft and non-tender x4 quadrants, no palpable masses or organomegaly. : Deferred. EXTREMITIES: Normal tone, moves all extremities spontaneously without reported pain. No obvious acute injury or deformity noted. NEURO: Alert and oriented x3, CN II-XII appear grossly intact. Cerebellar Functioning grossly intact. No obvious sensory or motor deficits. Speech clear and appropriate. PSYCH: normal affect, appropriate eye contact, fluid speech, with appropriate response to questioning. No reported suicidality or homicidality. SKIN: Warm, dry, color appropriate, normal turgor. No rashes noted. Course Course Course Narrative: feels better, work up reassuring stable for DC Medications Administered Discontinued Medications Generic Name Dose Route Start Last Admin Trade Name Tyree PRN Reason Stop Dose Admin Diphenhydramine HCl 25 mg 04/27/25 04:08 04/27/25 04:23 Diphenhydramine Hcl 50 Mg/Ml Vial IVPUSH 04/27/25 04:09 25 mg ONCE ONE Administration Sodium Chloride 1,000 mls @ 999 mls/hr 04/27/25 02:30 04/27/25 03:07 Ns IV 04/27/25 03:30 999 mls/hr .Q1H1M KORY Administration Iohexol 65 ml 04/27/25 02:43 04/27/25 02:43 Iohexol 350 Mg/Ml 100 Ml Infus..Btl IV 04/27/25 02:44 65 ml ONCE ONE Administration Ketorolac Tromethamine 15 mg 04/27/25 04:08 04/27/25 04:22 Ketorolac Tromethamine 15 Mg/Ml Vial IVPUSH 04/27/25 04:09 15 mg ONCE ONE Administration Metoclopramide HCl 10 mg 04/27/25 04:08 04/27/25 04:23 Metoclopramide Hcl 10 Mg/2 Ml Vial IVPUSH 04/27/25 04:09 10 mg ONCE ONE Administration Morphine Sulfate 4 mg 04/27/25 02:51 04/27/25 03:07 Morphine Sulfate 4 Mg/Ml Cartridge IVPUSH 04/27/25 02:52 4 mg ONCE ONE Administration Protocol Medical Decision Making Medical Decision Making [facility] Narrative: 3:28 AM 04/27/2025 (Taryn VARGAS): The patient is a 54-year-old female presenting to the ED via EMS for evaluation of multiple complaints but primarily reporting shortness of breath and headache. The patient is laboratory evaluation is overall markedly reassuring, no leukocytosis, anemia, ELICIA, or electrolyte abnormality, troponin is negative, EKG is nonischemic, chest x-ray shows no focal consolidation. The patient's viral panel is negative for influenza, COVID, and RSV. Patient has been sent for CT head to rule out ICH for headache, and CTA chest to rule out PE given the patient's shortness of breath and mild to moderate hypoxia on room air. 3:54 AM 04/27/2025 (Taryn VARGAS): Patient's CTA negative for PE or other acute pulmonary process, CT head negative for ICH or other acute intracranial pathology. The patient will be reassessed, if no improvement in headache we will treat with migraine cocktail. 4:07 AM 04/27/2025 (Taryn VARGAS): Patient reports no improvement in symptoms following morphine, patient will be treated with a migraine cocktail and reassessed, we will also add on urinalysis as patient was diagnosed with a UTI during her initial visit with syncope on April 02. Patient will be signed out to Dr. Morales. Differential Diagnosis Differential Diagnoses: The differential diagnosis associated with the presentation includes ICH, migraine, COPD exacerbation, pneumonia, PE, ACS, Admission/Observation Consideration of admission/observation: Escalation of care including admission/observation considered work up reassuring, feels better stable for DC Lab Data MDM Lab Attestation statement: I reviewed the patient's lab results. 04/27/25 01:12 04/27/25 01:12 Labs: Lab Results 04/27/25 04/27/25 Range/Units 01:12 04:30 WBC 7.9 (4.8-10.8) X10*3/uL RBC 3.79 L (4.20-5.50) X10*6/uL Hgb 12.4 (12.0-16.0) g/dl Hct 33.1 L (37.0-47.0) % MCV 87.3 (80.0-98.0) fL MCH 32.7 (27.0-33.0) pg MCHC 37.5 H (31.0-35.0) g/dl RDW 12.6 (11.0-16.0) % Plt Count 294 (160-400) X10*3/uL MPV 10.3 (9.4-12.3) fL Immature Gran % (Auto) 0.1 (0.0-0.4) % Neut % (Auto) 55.3 (45-73) % Lymph % (Auto) 36.2 (20-40) % [place] % (Auto) 5.6 (2-11) % Eos % (Auto) 2.5 (0-4) % Baso % (Auto) 0.3 (0-2) % Lymph # (Auto) 2.9 (1.2-4.9) X10*3/uL [place] # (Auto) 0.4 (0.1-1.2) X10*3/uL Eos # (Auto) 0.2 (0.0-0.4) X10*3/uL Baso # (Auto) 0.0 (0.0-0.2) X10*3/uL Abs Immat Gran (auto) 0.01 (0.00-0.03) X10*3/uL Absolute Neuts (auto) 4.4 (2.0-8.3) x10*3/uL Absolute Nucleated RBC 0.000 (0.0-0.012) X10*3/uL Nucleated RBC % (auto) 0.0 (0.0-0.2) /100WBC Sodium 139 (135-145) mmol/L Potassium 3.4 (3.3-5.1) mmol/L Chloride 106 (96-108) mmol/L Carbon Dioxide 21 L (22-29) mmol/L Anion Gap 15 (12-20) BUN 15 (9-16) mg/dL Creatinine 0.76 (0.5-1.4) mg/dL Estim Creat Clear Calc 89.2 Estimated GFR > 60 Random Glucose 230 H (60-115) mg/dL Calcium 9.1 (8.4-10.2) mg/dL Total Bilirubin 0.4 (0.0-1.0) mg/dL AST 25 (5-31) U/L ALT 28 (0-31) U/L Alkaline Phosphatase 164 H (39-117) U/L Troponin I High Sens < 2.7 (<3.5-17.0) ng/L Total Protein 7.1 (6.5-8.0) g/dL Albumin 4.3 (3.5-5.0) g/dL Urine Color Yellow Urine Appearance Clear Urine pH 5.5 (5.0-9.0) Ur Specific Martin >= 1.030 H (1.005-1.025) Urine Protein Negative (Neg-Trace) mg/dL Urine Glucose (UA) Negative (Negative) mg/dL Urine Ketones Negative (Negative) mg/dL Urine Blood Negative (Negative) Urine Nitrite Negative (Negative) Ur Leukocyte Esterase Small (1+) H (Negative) Urine RBC 0-2 (0-2) /HPF Urine WBC 11-20 H (0-5) /HPF Ur Squamous Epith Cells 0-2 (0-2) /HPF Urine Bacteria None Seen (None Seen) Hyaline Casts 0-2 (0-2) /LPF Influenza Type A (PCR) NEGATIVE (Negative) Influenza Type B (PCR) NEGATIVE (Negative) RSV RNA Qual (PCR) NEGATIVE (Negative) SARS-CoV-2 RNA (RT-PCR) NEGATIVE (Negative) Independent Interpretation I performed an independent interpretation of an: EKG (EKG shows sinus rhythm with a rate of 79, no evidence of acute ischemia, no ST elevation, no ectopy. QTC 460. Compared to previous on 04/20/2025 there are no acute morphology changes.) and CT Scan (no acute findings) Radiology Impression Discussion of test interpretation with radiology: I have reviewed the radiologist's reading. Radiologist Impression: CLINICAL HISTORY: DYSPNEA EXAM: One view chest x-ray COMPARISON: None FINDINGS: Normal cardiac, mediastinal, and hilar contours. Normal heart size. No pleural effusion or pneumothorax. Lungs are clear. No acute bone finding. IMPRESSION: 1. No acute cardiopulmonary process demonstrated. This document has been electronically signed by: Geovany Reid MD on 04/27/2025 01:52:24 CLINICAL HISTORY: SOB; Pleurisy; Hypoxia CT angiography chest with contrast. 3D Postprocessing. Comparison: None Findings: There is no pulmonary embolism. Heart size is within normal limits. There is no pericardial effusion. There is coronary artery calcification. Thoracic aorta is normal in diameter without dissection. There are no enlarged lymph nodes. There is minimal bibasilar atelectasis. There is mild bilateral mosaic attenuation likely due to mild air trapping. There are a few tiny bilateral pulmonary nodules measuring up to 3 mm. For reference, nodules are seen in the left upper lobe on series 17 image 55 and right upper lobe on image 53 and image 51. Trachea and central bronchi are widely patent. There is no acute fracture or suspicious lytic or sclerotic lesion. Limited images of the upper abdomen demonstrate no acute findings. There is partially visualized mild splenomegaly. Patient is status post cholecystectomy. IMPRESSION: 1. No pulmonary embolism. 2. Few tiny bilateral pulmonary nodules measuring up to 3 mm. Follow-up recommendations based on Fleischner Society guidelines as below: Multiple solid lung nodules < 6 mm: Follow up management based on most suspicious nodule. In a low-risk patient, no routine follow-up imaging is recommended. In a high-risk patient, a non-contrast Chest CT at 12 months is optional. If performed and the nodule is stable at 12 months, no further follow-up is recommended. These guidelines do not apply to patients younger than 35 years, immunocompromised patients, and patients with cancer. F/U in patients with significant comorbidities as clinically warranted. For lung cancer screening, adhere to Lung-RADS guidelines. Reference: Radiology. 2017 Apr; 284(1):228-24. This document has been electronically signed by: Joel Liu MD on 04/27/2025 03:50:16 CLINICAL HISTORY: Acute Onset Headache CT head without contrast Comparison: CT/SR - CT HEAD/BRAIN WO IV CON - 04/02/25 13:01 EDT Findings: There is no acute intracranial hemorrhage. Ventricles are of normal size and shape. No mass effect or midline shift is present. The quiros-white matter differentiation appears normal. The visualized portions of the orbits, paranasal sinuses, and mastoids are unremarkable. No fractures are identified. IMPRESSION: No acute intracranial abnormality. This document has been electronically signed by: Joel Liu MD on 04/27/2025 03:45:32 External Record Review External record reviewed: Inpatient record and Outpatient record Prescription Management I considered prescription management with: Pain Medication Chronic Conditions Patient?s care impacted by: Diabetes Discharge Plan Discharge Clinical Impression: Acute dyspnea, Anxiety Headache, migraine Qualifiers: Migraine type: unspecified Status migrainosus presence: without status migrainosus Intractability: not intractable Qualified Code(s): G43.909 - Migraine, unspecified, not intractable, without status migrainosus Patient Disposition: Home, Self-Care Instructions: Migraine Headache (ED), Dyspnea (ED), Anxiety (ED) Additional Instructions: labs and CT scans reassuring follow up with your primary care doctor if not better rest and stay hydrated. urine culture pending will call if positive Prescriptions: No Action ropinirole 1 mg Tablet 1 mg PO BEDTIME insulin glargine [Lantus U-100 Insulin] 100 unit/mL Solution 26 unit SUBCUT BEDTIME cetirizine [Zyrtec] 10 mg Tablet 10 mg PO DAILY prazosin 1 mg Capsule 1 mg PO BEDTIME mirtazapine 45 mg Tablet 45 mg PO BEDTIME PRN (Reason: Insomnia) montelukast [Singulair] 10 mg Tablet 10 mg PO BEDTIME bupropion HCl [Wellbutrin XL] 150 mg Tablet Extended Release 24 Hr 150 mg PO DAILY tiotropium bromide [Spiriva with HandiHaler] 18 mcg Capsule, W/Inhalation Device 1 cap INHALATION DAILY duloxetine [Cymbalta] 60 mg Capsule,Delayed Release(Dr/Ec) 60 mg PO DAILY fenofibrate micronized 134 mg capsule 1 tab PO DAILY@1800 fluticasone propionate 50 mcg/actuation spray,suspension 2 spray intranasal DAILY albuterol sulfate 2.5 mg /3 mL (0.083 %) solution for nebulization 2.5 mg inhalation Q4H PRN (Reason: wheezing) trazodone 50 mg tablet 50 mg PO BEDTIME PRN (Reason: Insomnia) lisinopril 20 mg tablet 20 mg PO DAILY propranolol 40 mg tablet 40 mg PO BID baclofen 10 mg tablet 10 mg PO TID pseudoephedrine HCl [Sudogest] 30 mg tablet 30 mg PO Q4H PRN (Reason: congestion) gabapentin 100 mg capsule 100 mg PO TID albuterol sulfate [Ventolin HFA] 90 mcg/actuation HFA aerosol inhaler 2 puff INHALATION Q4H PRN (Reason: Shortness Of Breath Or Wheezing) clotrimazole 1 % cream 1 appl topical Q12H PRN (Reason: Rash) diclofenac sodium 1 % gel 2 g topical QID PRN (Reason: pain) Trulicity 1.5 mg/0.5 mL pen injector 1.5 mg subcut TH@0900 famotidine 20 mg Tablet 20 mg PO DAILY Qty: 30 0RF tramadol 50 mg tablet 50 mg PO BID PRN (Reason: pain) Qty: 7 0RF cyclobenzaprine 10 mg tablet 10 mg PO TID PRN (Reason: muscle spasm) Qty: 10 0RF ketorolac 10 mg tablet 10 mg PO TID PRN (Reason: pain) 5 Days Qty: 12 0RF cefuroxime axetil 250 mg tablet 250 mg PO BID Qty: 9 0RF cyclobenzaprine 10 mg tablet 10 mg PO TID PRN (Reason: muscle spasm) Qty: 10 0RF ondansetron 4 mg tablet,disintegrating 4 mg PO Q8H PRN (Reason: nausea and vomiting) Qty: 7 0RF sumatriptan succinate [Imitrex] 50 mg tablet 50 mg PO Q2H PRN (Reason: migraine headache) Qty: 10 0RF Rx Instructions: do not exceed 2 doses per 24 hrs [id number]-qyjivzknlafmx-qqwy 50-325-40 mg tablet 1 tab PO Q6H PRN (Reason: haeadace) Qty: 20 0RF cefuroxime axetil 250 mg tablet 250 mg PO BID 7 Days Qty: 14 0RF atorvastatin [Lipitor] 40 mg tablet 40 mg PO DAILY cholecalciferol (vitamin D3) 50 mcg (2,000 unit) capsule 50 mcg PO DAILY hydrocodone-acetaminophen 5-325 mg tablet 1 tab PO Q4-6H PRN (Reason: pain) Qty: 30 0RF Rx Instructions: Partial Fill upon patient request. Print Language: Welsh
[2025-04-27] MEDS: iohexoL 350 MG/ML 100 ML INFUS..BTL 65 ML IV (02:43)
[2025-04-27 04:37] LABS: Appearance Urine Clear; Glucose Urine UA Negative (Negative); PH 5.5 (5.0-9.0); Specific Gravity - Urine >= 1.030 (1.005-1.025); UMIC TRIGGER UACC YES
[2025-04-27 05:05] LABS: UACC Culture Trigger YES
== END 2025-04-27 06:36 | disposition home or self-care (01) ==
PROVIDERS: Physician Assistant; Emergency Provider Emergency Medicine
DX: R06.00 Dyspnea, unspecified (principal); G43.909 Migraine, unspecified, not intractable, without status migrainosus; F41.9 Anxiety disorder, unspecified; I10 Essential (primary) hypertension; E11.9 Type 2 diabetes mellitus without complications; E78.5 Hyperlipidemia, unspecified; J45.909 Unspecified asthma, uncomplicated; F17.210 Nicotine dependence, cigarettes, uncomplicated; Z03.818 Encounter for observation for suspected exposure to other biological agents ruled out; Z79.899 Other long term (current) drug therapy; Z79.4 Long term (current) use of insulin; Z79.02 Long term (current) use of antithrombotics/antiplatelets
CPT/HCPCS: 36415; 70450; 71045; 71275; 80053; 81001; 81003; 84484; 85025; 87086; 87637; 93005; 96361; 96374; 96375; 99285; J1200; J1885; J2270; J2765; Q9967

== ENCOUNTER → 2025-04-27 00:58 | Outpatient (BNV) | payer MEDICAID, SELFPAY | PROVIDERS: Emergency Provider Emergency Medicine; Visit Provider Internal Medicine Cardiovascular Disease | DX: R06.02 Shortness of breath (principal) | CPT/HCPCS: 93010 ==